=== PATIENT | male | born 1980 | race Caucasian/White ===

== ENCOUNTER 2016-12-16 22:58 | Emergency (ER) | payer MEDICARE, MEDICAID ==
[~2016-12-16] VITALS: Ht 162.6 cm; Wt 131.3 kg
[~2016-12-16 22:58] MED LIST: ALPR0.257 PO; ALPR0.5T72 PO; CETI-176 PO; CETI-208 PO; CLON0.5T3 PO; LORA10TA2; LORA10TA7 PO; LURA40TA PO; MNTL10T; MNTL10T PO; MONT10TA21 PO; NAPR-243 PO; OLAN10TA19 PO; OMEP-10; OMEP-10 PO; OMEP20CA12 PO; PARO20TA57; PARO30TA2 PO; PROBIOTIC1 EACH PO; PROP20TA5 PO; SCR1T1 PO; SERT100T8 PO; SINGULAIR; TOPI50TA2 PO; TPR25T; [UNRECOGNIZED DRUG - OTHER]; [UNRECOGNIZED DRUG - OTHER]
[2016-12-16] MEDS ORDERED: BUPR150T7 (23:19)
[2016-12-16] MEDS ORDERED: PRD20T (23:19)
[2016-12-16] MEDS ORDERED: CITA40TA11 (23:19)
[2016-12-16 23:46] LABS: BASOPHILS # (AUTO) 0.1 10^3/uL (0.0-0.1); BASOPHILS % (AUTO) 1 % (0-10); EOSINOPHILS # (AUTO) 0.6 10^3/uL (0.0-0.3); EOSINOPHILS % (AUTO) 5 % (0-10); LYMPHOCYTES % (AUTO) 28 % (12-44); MEAN CORPUSCULAR HEMOGLOBIN 29 PG (25-34); MEAN CORPUSCULAR HGB CONC 34 G/DL (32-36); MEAN CORPUSCULAR VOLUME 86 FL (80-99); MEAN PLATELET VOLUME 9.6 FL (7.4-10.4); MONOCYTES # (AUTO) 1.1 X 10^3 (0.0-1.0); MONOCYTES % (AUTO) 10 % (0-12); NEUTROPHILS # (AUTO) 5.8 X 10^3 (1.8-7.8); NEUTROPHILS % (AUTO) 55 % (42-75); PLATELET COUNT 414 10^3/uL (130-400); RED BLOOD COUNT 5.32 10^6/uL (4.35-5.85); RED CELL DISTRIBUTION WIDTH 12.6 % (10.0-14.5); WHITE BLOOD COUNT 10.6 10^3/uL (4.3-11.0)
[2016-12-16 23:52] LABS: PROTHROMBIN TIME PATIENT 12.5 SEC (12.2-14.7)
[2016-12-17 00:05] LABS: ALANINE AMINOTRANSFERASE 62 U/L (0-55); ALBUMIN 4.3 G/DL (3.2-4.5); AMYLASE 79 U/L (25-125); ANION GAP 13 MMOL/L (5-14); ASPARTATE AMINO TRANSFERASE 31 U/L (5-34); BILIRUBIN,TOTAL 0.5 MG/DL (0.1-1.0); BLOOD UREA NITROGEN 9 MG/DL (7-18); BUN/CREATININE RATIO 8; CALCIUM 9.7 MG/DL (8.5-10.1); CARBON DIOXIDE 29 MMOL/L (21-32); CHLORIDE 100 MMOL/L (98-107); CREATININE SERUM 1.14 MG/DL (0.60-1.30); GFR ESTIMATED > 60; GLUCOSE 120 MG/DL (70-105); LIPASE 11 U/L (8-78); POTASSIUM 3.9 MMOL/L (3.6-5.0); SODIUM 142 MMOL/L (135-145); TOTAL PROTEIN 7.7 G/DL (6.4-8.2)
[2016-12-17 00:11] LABS: TROPONIN I < 0.30 NG/ML (<0.30)
[2016-12-17] MEDS ORDERED: NS 100 ML (IVPB) BAG IV ONE (00:15)
[2016-12-17] MEDS ORDERED: IOHEXOL 350 MG/ML 100 ML (OMNIPAQUE 350) VIAL IV ONE (00:15)
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
[2016-12-17 01:40] VITALS: BP 149/98
[2016-12-17 01:57] LABS: BILIRUBIN,URINE NEGATIVE (NEGATIVE); KETONES,URINE NEGATIVE (NEGATIVE); LEUKOCYTE ESTERASE ,URINE NEGATIVE (NEGATIVE); NITRITE,URINE NEGATIVE (NEGATIVE); PH,URINE 8 (5-9); PROTEIN,URINE NEGATIVE (NEGATIVE); UROBILINOGEN,URINE NORMAL (NORMAL)
[2016-12-17 02:06] LABS: SQUAMOUS EPITHELIAL CELL,UR 0-2 /HPF
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
== END 2016-12-17 01:40 | disposition home or self-care (01) ==
LOC: EDUNIT# 22:58 → ER 23:00
DX: S20.211A Contusion of right front wall of thorax, initial encounter (principal); S30.1XXA Contusion of abdominal wall, initial encounter; F79 Unspecified intellectual disabilities; K76.0 Fatty (change of) liver, not elsewhere classified; E27.9 Disorder of adrenal gland, unspecified; Z79.899 Other long term (current) drug therapy; V43.62XA Car passenger injured in collision with other type car in traffic accident, initial encounter; Y92.410 Unspecified street and highway as the place of occurrence of the external cause; Y99.8 Other external cause status
CPT/HCPCS: 36415; 71020; 71260; 72125; 72128; 72131; 74177; 80053; 81000; 82150; 83690; 84484; 85025; 85610; 85730; 93005

== ENCOUNTER 2017-08-26 17:39 | Emergency (ER) | payer MEDICARE, MEDICAID ==
[~2017-08-26] VITALS: Ht 162.6 cm; Wt 131.3 kg
[~2017-08-26 17:39] MED LIST changes: +BUPR150T7; +CITA40TA11; +PRD20T
[2017-08-26] MEDS ORDERED: ASPIRIN 81 MG CHEW (CHILDREN'S ASA) PO ONE (18:00)
[2017-08-26] MEDS ORDERED: NITROGLYCERIN 0.4 MG SL TABS BTL 25'S SL PRN (18:00)
--- NOTE | 2017-08-26 18:01 | ED Chest Pain ---
General Stated Complaint: CP Source: patient, family Exam Limitations: physical impairment (MR) (SHANIQUE LARKIN) History of Present Illness Date Seen by Provider: Aug 26, 2017 Time Seen by Provider: 17:33 Initial Comments Patient resists ER by private conveyance with his father and caregiver with a chief complaint that he is having chest pain that started within the last hour or so. He has a history of heart problems and is known to Dr. Khanna but the father is not sure what they are and does not think his ever had a heart attack for atrial fibrillation. Patient is not on blood thinners. He does not know if he has a history of blood pressure problems but he is not diabetic. Nursing reports a blood sugar is 113 and the patient is diaphoretic and describes his pain as substernal midline and reproducible when I push on him. He does not smoke drink or use recreational drugs. He is on no if he has cholesterol problems. No known familial history of heart disease before the age of 50. No nausea or radiation of pain to the arms jaw or neck. Previously in the ER he was seen by Dr. Nieves and was worked up sounds like with a stress test outpatient by Dr. Khanna. Patient does have a history of asthma although the father notes that he only uses the inhalers as needed and has not been using them for the past several weeks because he has not needed them. (SHANIQUE LARKIN) Allergies and Home Medications Allergies Coded Allergies: NKANo Known Allergies (Unverified Allergy, Mild, 09/22/09) Home Medications Bupropion HCl 150 Mg Tab.er.24h, #30 (Reported) Citalopram Hydrobromide 40 Mg Tablet, #30 (Reported) Clonazepam 0.5 Mg Tablet, 1 EACH PO BID PRN, (Reported) Lactobacillus Rhamnosus Gg 1 Each Capsule, 1 EACH PO DAILY, (Reported) Loratadine 10 Mg Tablet, 10 MG PO DAILY, (Reported) Lurasidone Hcl 40 Mg Tablet, 40 MG PO DAILY, (Reported) Montelukast Sodium 10 Mg Tablet, 10 MG PO DAILY, (Reported) Olanzapine 10 Mg Tablet, 10 MG PO HS, (Reported) Omeprazole 20 Mg Capsule.dr, 20 MG PO DAILY, (Reported) Prednisone 20 Mg Tab, #20 (Reported) Propranolol Hcl 20 Mg Tablet, 20 MG PO TID, (Reported) Sertraline Hcl 100 Mg Tablet, 100 MG PO DAILY, (Reported) Sucralfate 1 Gm Tab, 1 GM PO ACHS for 30 Days, Ref 0 Prescribed by: SARAH ABDI on 07/17/12 1607 Topiramate 50 Mg Tablet, 50 MG PO BID, (Reported) Review of Systems Constitutional: chills, diaphoresis, No fever, malaise EENTM: No Ear Pain, No Mouth Pain Respiratory: Denies Cough, Denies Shortness of Air, Denies Wheezing Cardiovascular: Denies Chest Pain, Denies Edema Gastrointestinal: Denies Abdomen Distended, Abdominal Pain (left lower quadrant ), Constipated, Diarrhea, Denies Nausea Genitourinary: Denies Burning Musculoskeletal: No back pain, No joint pain Skin: No pruritus, No rash Psychiatric/Neurological: Denies Headache, Denies Numbness (SHANIQUE LARKIN) Past Xomjcag-Vogvfs-Usqmqo Hx Patient Social History Alcohol Use: Denies Use Recreational Drug Use: No Smoking Status: Never a Smoker Recent Foreign Travel: No Contact w/Someone Who Travel: No Recent Hopitalizations: No (SHANIQUE LARKIN) Immunizations Up To Date Tetanus Booster (TDap): Unknown Date of Influenza Vaccine: Jun 02, 2012 (SHANIQUE LARKIN) Seasonal Allergies Seasonal Allergies: Yes (Allergic rhinitis) (SHANIQUE LARKIN) Surgeries History of Surgeries: Yes Surgeries: Gallbladder (SHANIQUE LARKIN) Respiratory History of Respiratory Disorde: Yes (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) Respiratory Disorders: Asthma (SHANIQUE LARKIN) Cardiovascular History of Cardiac Disorders: Yes (History of pericarditis) (SHANIQUE LARKIN) Neurological History of Neurological Disord: Yes (MR, essential tremors) Neurological Disorders: Developmental Disorder (SHANIQUE LARKIN) Genitourinary History of Genitourinary Disor: No (SHANIQUE LARKIN) Gastrointestinal History of Gastrointestinal Di: Yes Gastrointestinal Disorders: Gastroesophageal Reflux (SHANIQUE LARKIN) Musculoskeletal History of Musculoskeletal Dis: No (SHANIQUE LARKIN) Endocrine History of Endocrine Disorders: No (SHANIQUE LARKIN) HEENT History of HEENT Disorders: No (SHANIQUE LARKIN) Cancer History of Cancer: No (SHANIQUE LARKIN) Psychosocial History of Psychiatric Problem: Yes (mentally challenged, mood disorder) (SHANIQUE LARKIN) Integumentary History of Skin or Integumenta: Yes (See trauma flow sheet picture: extensive bruising) (SHANIQUE LARKIN) Blood Transfusions History of Blood Disorders: No (SHANIQUE LARKIN) Family Medical History Significant Family History: Heart Disease (SHANIQUE LARKIN) Physical Exam Vital Signs Vital Signs - First Documented 08/26/17 08/26/17 17:44 17:45 Temp 98.7 Pulse 110 Resp 18 B/P (MAP) 160/97 (118) Pulse Ox 98 O2 Delivery Room Air O2 Flow Rate 0 (WARREN AVITIA MD) Vital Signs Capillary Refill : (SHANIQUE LARKIN) General Appearance: Anxious, Mild Distress, Obese HEENT: PERRL/EOMI, TMs Normal, Normal ENT Inspection, Pharynx Normal Neck: Full Range of Motion, Non Tender, Supple Respiratory: Normal Breath Sounds, Accessory Muscle Use (mild), Decreased Breath Sounds, Respiratory Distress (mild), Other (midsternum is tender to palpation similar to the pain he is describing) Cardiovascular: Regular Rate, Rhythm, No Edema, No Murmur, Tachycardia Gastrointestinal: Normal Bowel Sounds, Soft, Tenderness (left lower quadrant mild tenderness. No mesenteric signs.) Extremity: Normal Capillary Refill, No Pedal Edema Neurologic/Psychiatric: Alert, Oriented x3 (SHANIQUE LARKIN) Progress/Results/Core Measures Results/Orders Lab Results Laboratory Tests Test 08/26/17 17:52 08/26/17 17:57 08/26/17 20:00 08/26/17 20:05 Range/Units White Blood Count 11.3 H 4.3-11.0 10^3/uL Red Blood Count 5.64 4.35-5.85 10^6/uL Hemoglobin 16.2 13.3-17.7 G/DL Hematocrit 48 40-54 % Mean Corpuscular Volume 86 80-99 FL Mean Corpuscular Hemoglobin 29 25-34 PG Mean Corpuscular Hemoglobin Concent 34 32-36 G/DL Red Cell Distribution Width 12.8 10.0-14.5 % Platelet Count 364 130-400 10^3/uL Mean Platelet Volume 9.7 7.4-10.4 FL Neutrophils (%) (Auto) 65 42-75 % Lymphocytes (%) (Auto) 19 12-44 % Monocytes (%) (Auto) 12 0-12 % Eosinophils (%) (Auto) 4 0-10 % Basophils (%) (Auto) 1 0-10 % Neutrophils # (Auto) 7.3 1.8-7.8 X 10^3 Lymphocytes # (Auto) 2.1 1.0-4.0 X 10^3 Monocytes # (Auto) 1.4 H 0.0-1.0 X 10^3 Eosinophils # (Auto) 0.4 H 0.0-0.3 10^3/uL Basophils # (Auto) 0.1 0.0-0.1 10^3/uL Prothrombin Time 13.2 12.2-14.7 SEC INR Comment 1.0 0.8-1.4 Activated Partial Thromboplast Time 26 24-35 SEC D-Dimer < 0.27 0.00-0.49 UG/ML Sodium Level 141 135-145 MMOL/L Potassium Level 4.2 3.6-5.0 MMOL/L Chloride Level 102 98-107 MMOL/L Carbon Dioxide Level 28 21-32 MMOL/L Anion Gap 11 5-14 MMOL/L Blood Urea Nitrogen 12 7-18 MG/DL Creatinine 1.00 0.60-1.30 MG/DL Estimat Glomerular Filtration Rate > 60 BUN/Creatinine Ratio 12 Glucose Level 117 H 70-105 MG/DL Calcium Level 10.2 H 8.5-10.1 MG/DL Magnesium Level 2.3 1.8-2.4 MG/DL Total Bilirubin 0.4 0.1-1.0 MG/DL Aspartate Amino Transf (AST/SGOT) 31 5-34 U/L Alanine Aminotransferase (ALT/SGPT) 56 H 0-55 U/L Alkaline Phosphatase 64 40-136 U/L Myoglobin 18.3 10.0-92.0 NG/ML Troponin I < 0.30 < 0.30 <0.30 NG/ML B-Type Natriuretic Peptide < 10.0 <100.0 PG/ML Total Protein 8.4 H 6.4-8.2 GM/DL Albumin 4.6 H 3.2-4.5 GM/DL Lipase 12 8-78 U/L Glucometer 118 H 70-110 MG/DL Urine Color YELLOW Urine Clarity CLEAR Urine pH 5 5-9 Urine Specific [place] 1.015 L 1.016-1.022 Urine Protein NEGATIVE NEGATIVE Urine Glucose (UA) NEGATIVE NEGATIVE Urine Ketones NEGATIVE NEGATIVE Urine Nitrite NEGATIVE NEGATIVE Urine Bilirubin NEGATIVE NEGATIVE Urine Urobilinogen NORMAL NORMAL MG/DL Urine Leukocyte Esterase 1+ H NEGATIVE Urine RBC (Auto) NEGATIVE NEGATIVE Urine RBC NONE /HPF Urine WBC 0-2 /HPF Urine Crystals NONE /LPF Urine Bacteria NONE /HPF Urine Casts NONE /LPF Urine Mucus NEGATIVE /LPF Urine Culture Indicated NO (WARREN AVITIA MD) My Orders Orders - WARREN AVITIA MD Ondansetron Injection (Zofran Injectio (08/26/17 18:30) Lidocaine 2% Viscous 15 Ml (Xylocaine Vi (08/26/17 18:30) Antacid Suspension (Mylanta Suspension (08/26/17 18:30) Famotidine Injection (Pepcid Injection) (08/26/17 18:24) Ns Iv 1000 Ml (Sodium Chloride 0.9%) (08/26/17 18:24) Albuterol/Ipra Inhalation Soln (Duoneb I (08/26/17 18:30) Svn Sm Volume Nebulizer Rt-Rfs (08/26/17 18:24) Ua Culture If Indicated (08/26/17 19:06) Ct Abdomen/Pelvis W (08/26/17 19:09) Iohexol Injection (Omnipaque 350 Mg/Ml 1 (08/26/17 19:30) Ns (Ivpb) (Sodium Chloride 0.9% Ivpb Bag (08/26/17 19:30) Troponin I (08/26/17 19:53) Iv Push Master Automotive Technician Ed (08/26/17 ) (WARREN AVITIA MD) Medications Given in ED (WARREN AVITIA MD) Vital Signs/I&O Vital Sign - Last 12Hours 08/26/17 08/26/17 08/26/17 08/26/17 17:44 17:45 17:45 18:40 Temp 98.7 Pulse 110 Resp 18 B/P (MAP) 160/97 (118) Pulse Ox 98 97 95 O2 Delivery Room Air Room Air Room Air O2 Flow Rate 0 08/26/17 21:04 Temp 98.7 Pulse 116 Resp 18 Pulse Ox 95 O2 Delivery Room Air O2 Flow Rate 0 (WARREN AVITIA MD) Progress Note : Time: 18:00 Progress Note Coronary is possible however we'll think about other things with his reproducible chest pain such as pleuritic pain however his diaphoresis and afebrile presentation is concerning. Fluids, lipase. Could also be an asthma exacerbation as the patient is using some mild sensory muscles and he may respond to a breathing treatment. Her going to discuss the case with Dr. Nieves and allow him to take over and make further suggestions and workup. (SHANIQUE LARKIN) Progress Note #1: Time: 18:29 Progress Note I have assumed care of this patient from Dr. Larkin. Patient was reexamined and found to have tenderness across his upper abdomen and across the chest. He denies tenderness in the lower abdomen. I reviewed the chart from his prior visit with me in 2014. At that time he had a similar presentation. Chest tightness and pain resolved with DuoNeb treatment and abdominal pain had resolved with GI cocktail. We will try the same treatments today. I will also give a liter of IV fluids. Since patient cannot reliably give a history, we will err on the side of a more thorough workup and caution. Progress Note #2: Time: 19:13 Progress Note It is very difficult to get a clear answer from the patient whether he has improvement in his pain after GI cocktail. Patient's father seems to think he is somewhat better. Workup has been relatively unremarkable to this point. I discussed potential for further workup which would include CT of the abdomen and pelvis. Patient's father is agreeable to this as we yet have no explanation for his pain. CT has been ordered. Patient does not seem is tender on exam when evaluated again. Progress Note #3: Progress Note CT scan was negative for acute pathology. Patient appears significantly improved after DuoNeb treatment and GI cocktail. Patient was dismissed home to outpatient follow-up. (WARREN AVITIA MD) ECG Initial ECG Impression Date: Aug 26, 2017 Initial ECG Impression Time: 17:48 Initial ECG Rate: 110 Initial ECG Rhythm: S.Tach Initial ECG Intervals: Normal Initial ECG Impression: Normal Initial ECG Comparisson: No Previous ECG Available Comment Lots of breathing artifact however there is no evidence of T-wave elevation or depression. EKG : EKG Time: 17:51 Rate: 110 Rhythm: Normal Sinus Intervals: Normal ECG Comparisson: Unchanged ECG Impression: Normal, Nonspecific Changes Comment Same breathing artifact and no T-wave elevation or depression noted. (SHANIQUE LARKIN) Diagnostic Imaging Diagonstic Imaging: Xray Plain Films/CT/US/NM/MRI: chest Reviewed: Reviewed by Me (SHANIQUE LARKIN) Comments Chest x-ray viewed by me and report reviewed. See report below: NAME: [facility] REC#: [id number] PT STATUS: REG ER : 1980 PHYSICIAN: SHANIQUE LARKIN MD ADMIT DATE: 08/26/17/ER Draft Date of Exam:08/26/17 CHEST 1 VIEW, AP/PA ONLY INDICATION: Chest pain. EXAMINATION: Portable chest at 6:06 p.m. FINDINGS: Heart size and pulmonary vascularity are normal. Lungs are clear. There are no effusions or pneumothoraces. IMPRESSION: Negative chest. Dictated on workstation # [id number] Dict: 08/26/17 1826 Trans: 08/26/17 1829 [facility] [id number] Interpreted by: SARAH PRIETO MD Diagonstic Imaging: CT Plain Films/CT/US/NM/MRI: abdomen, pelvis Comments CT abdomen and pelvis viewed by me and report reviewed. See report below: NAME: [facility] REC#: [id number] PT STATUS: DEP ER : 1980 PHYSICIAN: WARREN AVITIA MD ADMIT DATE: 08/26/17/ER Signed Date of Exam: 08/26/17 CT ABDOMEN/PELVIS W PROCEDURE: CT abdomen and pelvis with contrast. TECHNIQUE: Multiple contiguous axial images were obtained through the abdomen and pelvis after administration of intravenous contrast. INDICATION: Chest and abdominal pain. COMPARISON: Study of 12/17/2016. FINDINGS: There is low-density throughout the liver without evidence of focal hepatic or splenic lesion. There is also fatty change within the head and neck of the pancreas. Otherwise, there is no evidence of pancreatic or left adrenal gland lesion. There is a persistent 1.6 cm nodule in the right adrenal gland. Kidneys are stable in appearance without evidence of hydronephrosis or localized inflammation. Appendix has a normal appearance. Partially opacified urinary bladder is unremarkable. Is no free fluid or evidence of pathologic adenopathy. 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 There has been no significant change in right adrenal gland nodule. Otherwise, no acute abnormality or adverse change is identified. Dictated by: Dictated on workstation # [id number] Dict: 08/26/171933 Trans: 08/26/172136 Interpreted by: MAXIMO ESTRELLA MD Electronically signed by: MAXIMO ESTRELLA MD 08/26/172136 (WARREN AVITIA MD) Departure Impression Impression: Primary Impression: Atypical chest pain Additional Impressions: Asthma exacerbation Qualified Codes: J45.901 - Unspecified asthma with (acute) exacerbation Upper abdominal pain Disposition: HOME, SELF-CARE Condition: Improved Departure-Patient Inst. Decision time for Depature: 20:53 (WARREN AVITIA MD) [place] [facility] [place] Primary Care Physician Patient Instructions: Acute Abdomen (Belly Pain), Chest Pain (DC) Add. Discharge Instructions: Your workup in the emergency room was relatively unremarkable. For shortness of breath or chest tightness, you may use nebulizer treatments up to every 4 hours as needed. For per abdominal discomfort, please increase your omeprazole to 20 mg twice daily instead of once daily. Return to the emergency room if symptoms worsen. Follow-up with your primary care provider as soon as possible. Please call morning to make an appointment. Copy Copies To 1: MARNIE PORTER TITUS J Aug 26, 2017 18:01 WARREN AVITIA MD Aug 26, 2017 18:30
[2017-08-26 18:02] LABS: BASOPHILS # (AUTO) 0.1 10^3/uL (0.0-0.1); BASOPHILS % (AUTO) 1 % (0-10); EOSINOPHILS # (AUTO) 0.4 10^3/uL (0.0-0.3); EOSINOPHILS % (AUTO) 4 % (0-10); HEMATOCRIT 48 % (40-54); HEMOGLOBIN 16.2 G/DL (13.3-17.7); LYMPHOCYTES # (AUTO) 2.1 X 10^3 (1.0-4.0); LYMPHOCYTES % (AUTO) 19 % (12-44); MEAN CORPUSCULAR HEMOGLOBIN 29 PG (25-34); MEAN CORPUSCULAR HGB CONC 34 G/DL (32-36); MEAN CORPUSCULAR VOLUME 86 FL (80-99); MEAN PLATELET VOLUME 9.7 FL (7.4-10.4); MONOCYTES # (AUTO) 1.4 X 10^3 (0.0-1.0); MONOCYTES % (AUTO) 12 % (0-12); NEUTROPHILS # (AUTO) 7.3 X 10^3 (1.8-7.8); NEUTROPHILS % (AUTO) 65 % (42-75); PLATELET COUNT 364 10^3/uL (130-400); RED BLOOD COUNT 5.64 10^6/uL (4.35-5.85); RED CELL DISTRIBUTION WIDTH 12.8 % (10.0-14.5); WHITE BLOOD COUNT 11.3 10^3/uL (4.3-11.0)
[2017-08-26 18:11] LABS: PROTHROMBIN TIME PATIENT 13.2 SEC (12.2-14.7)
[2017-08-26 18:21] LABS: ALANINE AMINOTRANSFERASE 56 U/L (0-55); ALBUMIN 4.6 GM/DL (3.2-4.5); ALKALINE PHOSPHATASE 64 U/L (40-136); BILIRUBIN,TOTAL 0.4 MG/DL (0.1-1.0); BUN/CREATININE RATIO 12; CALCIUM 10.2 MG/DL (8.5-10.1); CARBON DIOXIDE 28 MMOL/L (21-32); CHLORIDE 102 MMOL/L (98-107); GFR ESTIMATED > 60; GLUCOSE 117 MG/DL (70-105); LIPASE 12 U/L (8-78); MAGNESIUM 2.3 MG/DL (1.8-2.4); POTASSIUM 4.2 MMOL/L (3.6-5.0); SODIUM 141 MMOL/L (135-145); TOTAL PROTEIN 8.4 GM/DL (6.4-8.2)
[2017-08-26] MEDS ORDERED: NS IV 1000 ML 1,000 ML IV ONE (18:24)
[2017-08-26] MEDS ORDERED: FAMOTIDINE 20MG/2ML IV (PEPCID) IV STA (18:24)
[2017-08-26 18:27] LABS: MYOGLOBIN SERUM 18.3 NG/ML (10.0-92.0)
[2017-08-26] MEDS ORDERED: ANTACID SUSP 30 ML UDC (MYLANTA) PO ONE (18:30)
[2017-08-26] MEDS ORDERED: ONDANSETRON 4 MG/2 ML (SDV) Z0FRAN IVP ONE (18:30)
[2017-08-26] MEDS ORDERED: LIDOCAINE 2% VISCOUS 15 ML UDC PO ONE (18:30)
[2017-08-26] MEDS ORDERED: RT-ALBUTEROL/IPRATROPIUM 3 ML (DUONEB) VIAL INH ONE (18:30)
--- NOTE | 2017-08-26 18:30 | Diagnostic Imaging Report ---
INDICATION: Chest pain. EXAMINATION: Portable chest at 6:06 p.m. FINDINGS: Heart size and pulmonary vascularity are normal. Lungs are clear. There are no effusions or pneumothoraces. IMPRESSION: Negative chest. Dictated by: Dictated on workstation # [id number]
[2017-08-26] MEDS ORDERED: IOHEXOL 350 MG/ML 100 ML (OMNIPAQUE 350) VIAL IV ONE (19:30)
[2017-08-26] MEDS ORDERED: NS 100 ML (IVPB) BAG IV ONE (19:30)
--- NOTE | 2017-08-26 19:39 | Diagnostic Imaging Report ---
PROCEDURE: CT abdomen and pelvis with contrast. TECHNIQUE: Multiple contiguous axial images were obtained through the abdomen and pelvis after administration of intravenous contrast. INDICATION: Chest and abdominal pain. COMPARISON: Study of 12/17/2016. FINDINGS: There is low-density throughout the liver without evidence of focal hepatic or splenic lesion. There is also fatty change within the head and neck of the pancreas. Otherwise, there is no evidence of pancreatic or left adrenal gland lesion. There is a persistent 1.6 cm nodule in the right adrenal gland. Kidneys are stable in appearance without evidence of hydronephrosis or localized inflammation. Appendix has a normal appearance. Partially opacified urinary bladder is unremarkable. Is no free fluid or evidence of pathologic adenopathy. 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 There has been no significant change in right adrenal gland nodule. Otherwise, no acute abnormality or adverse change is identified. Dictated by: Dictated on workstation # [id number]
[2017-08-26 20:19] LABS: BILIRUBIN,URINE NEGATIVE (NEGATIVE); CLARITY,URINE CLEAR; COLOR,URINE YELLOW; GLUCOSE, URINE (UA) NEGATIVE (NEGATIVE); KETONES,URINE NEGATIVE (NEGATIVE); LEUKOCYTE ESTERASE ,URINE 1+ (NEGATIVE); NITRITE,URINE NEGATIVE (NEGATIVE); PH,URINE 5 (5-9); PROTEIN,URINE NEGATIVE (NEGATIVE); UROBILINOGEN,URINE NORMAL (NORMAL)
[2017-08-26 20:33] LABS: WBC,URINE 0-2 /HPF
[2017-08-26 21:04] VITALS: BP 180/94
--- OUTSIDE RECORDS SUMMARY | 2017-08-29 07:05 | XMS REPORT ---
Author Author IRENE Madrigal [facility] [address] Address Unknown Care Team Providers Care Crosstie Inspector Name Role Phone IRENE Madrigal Unavailable PROBLEMS Type Condition ICD9-CM Code [id number] Code Onset Dates Condition Status SNOMED Code Problem Anxiety state, unspecified 300.00 Active 550640286 Problem Unspecified episodic mood disorder 296.90 Active 954591724 Problem Unspecified psychosis 298.9 Active 49723532 Problem Major depressive disorder, recurrent episode, in partial remission F33.41 Active 26758650 Problem Major depression, recurrent F33.9 Active 42988277 Problem Major depressive disorder, recurrent episode, mild 296.31 Active 10816667 Problem Major depressive disorder, recurrent episode, moderate 296.32 Active 56787788 Problem Obsessive compulsive disorder F42 Active 624717629 Problem Mental retardation F79 Active 18073503 Problem Unspecified otalgia 388.70 Active 21345460 Problem Acute suppurative otitis media without spontaneous rupture of eardrum 382.00 Active 80615615 Problem Encounter for long-term (current) use of other medications V58.69 Active 281910157 Problem Wheezing 786.07 Active 25457234 Problem Mild mental retardation 317 Active 60065283 Problem Depressive disorder, not elsewhere classified 311 Active 91019783 Problem Dysfunction of Eustachian tube 381.81 Active 13440072 Problem Obsessive-compulsive disorders 300.3 Active 059600283 Problem Moderate mental retardation 318.0 Active 64820035 Problem Generalized anxiety disorder 300.02 Active 35594310 ALLERGIES No Known Allergies SOCIAL HISTORY Never Assessed PLAN OF CARE Activity Details Follow Up 2 Months Reason: VITAL SIGNS MEDICATIONS Medication Instructions Dosage Frequency Start Date End Date Duration Status Clonazepam 0.5 MG Orally as needed Twice a day 1 tablet 12h Sep, 30 days Active Latuda 60 MG Orally Once a day 1 tablet with food 24h Oct, 30 days Active Wellbutrin XL 150 MG Orally Once a day 1 tablet in the morning 24h November, 30 day(s) Active Latuda 60MG TAKE ONE TABLET BY MOUTH ONCE DAILY WITH FOOD 30 Active propranolol 20 mg 1 Tablet by Oral route 2 times per day Dec, Active Mucinex 600 MG Orally every 12 hrs 1 tablet as needed 12h Active RESULTS No Results PROCEDURES Procedure Date Ordered Result Body Site [facility] VISIT ESTABLISHED PATIENT November 18, 2016 IMMUNIZATIONS No Known Immunizations
--- OUTSIDE RECORDS SUMMARY | 2017-08-29 07:05 | XMS REPORT ---
Author Author IRENE Madrigal [facility] Address Unknown Care Team Providers Care Crate Liner Name Role Phone IRENE Madrigal Unavailable PROBLEMS Type Condition ICD9-CM Code [id number] Code Onset Dates Condition Status SNOMED Code Problem Anxiety state, unspecified 300.00 Active 225628395 Problem Unspecified episodic mood disorder 296.90 Active 845880610 Problem Unspecified psychosis 298.9 Active 35102435 Problem Major depressive disorder, recurrent episode, in partial remission F33.41 Active 45872077 Problem Major depression, recurrent F33.9 Active 97693832 Problem Major depressive disorder, recurrent episode, mild 296.31 Active 76671822 Problem Major depressive disorder, recurrent episode, moderate 296.32 Active 75108177 Problem Obsessive compulsive disorder F42 Active 942399798 Problem Mental retardation F79 Active 35095509 Problem Unspecified otalgia 388.70 Active 48177883 Problem Acute suppurative otitis media without spontaneous rupture of eardrum 382.00 Active 66887774 Problem Encounter for long-term (current) use of other medications V58.69 Active 829053610 Problem Wheezing 786.07 Active 34933479 Problem Mild mental retardation 317 Active 68400047 Problem Depressive disorder, not elsewhere classified 311 Active 61637167 Problem Dysfunction of Eustachian tube 381.81 Active 56147750 Problem Obsessive-compulsive disorders 300.3 Active 807764302 Problem Moderate mental retardation 318.0 Active 58464473 Problem Generalized anxiety disorder 300.02 Active 25745503 ALLERGIES No Information SOCIAL HISTORY Never Assessed PLAN OF CARE VITAL SIGNS MEDICATIONS Unknown Medications RESULTS No Results PROCEDURES No Known procedures IMMUNIZATIONS No Known Immunizations
--- OUTSIDE RECORDS SUMMARY | 2017-08-29 07:06 | XMS REPORT ---
Author Author IRENE AL [facility] Address Unknown Care Team Providers Care Dragline Engineer Name Role Phone IRENE AL Unavailable PROBLEMS Type Condition ICD9-CM Code XBS40-AY Code Onset Dates Condition Status SNOMED Code Problem Generalized anxiety disorder 300.02 Active 51282476 Problem Unspecified psychosis 298.9 Active 07685967 Problem Acute suppurative otitis media without spontaneous rupture of eardrum 382.00 Active 80873290 Problem Major depressive disorder, recurrent episode, in partial remission F33.41 Active 93010894 Problem Major depression, recurrent F33.9 Active 91329621 Problem Anxiety state, unspecified 300.00 Active 267893904 Problem Unspecified episodic mood disorder 296.90 Active 974705657 Problem Obsessive compulsive disorder F42 Active 457148097 Problem Mental retardation F79 Active 62173430 Problem Mild mental retardation 317 Active 38468829 Problem Unspecified otalgia 388.70 Active 68741600 Problem Major depressive disorder, recurrent episode, moderate 296.32 Active 26005504 Problem Obsessive-compulsive disorders 300.3 Active 717992115 Problem Encounter for long-term (current) use of other medications V58.69 Active 275378249 Problem Major depressive disorder, recurrent episode, mild 296.31 Active 01872875 Problem Dysfunction of Eustachian tube 381.81 Active 59463362 Problem Moderate mental retardation 318.0 Active 87415676 Problem Wheezing 786.07 Active 73399533 Problem Depressive disorder, not elsewhere classified 311 Active 04339465 ALLERGIES Substance Reaction Event Type Date Status N.K.D.A. Unknown Non Drug Allergy Jun, Unknown SOCIAL HISTORY No smoking Hx information available PLAN OF CARE Activity Details Follow Up 3 Months Reason: VITAL SIGNS Height 65 in 2016-07-01 Weight 294.0 lbs 2016-07-01 Heart Rate 100 bpm 2016-07-01 Respiratory Rate 20 2016-07-01 BMI 48.92 kg/m2 2016-07-01 Blood pressure systolic 108 mmHg 2016-07-01 Blood pressure diastolic 83 mmHg 2016-07-01 MEDICATIONS Medication Instructions Dosage Frequency Start Date End Date Duration Status propranolol 20 mg 1 Tablet by Oral route 2 times per day Dec, Active Latuda 60 MG Orally Once a day 1 tablet with food 24h Oct, 30 days Active Citalopram Hydrobromide 40 MG Orally Once a day 1 tablet 24h Apr, 30 days Active Clonazepam 0.5 MG Orally 2 times a day PRN anxiety take 1 tablet Sep, 30 days Active Mucinex 600 MG Orally every 12 hrs 1 tablet as needed 12h Active RESULTS No Results PROCEDURES Procedure Date Ordered Related Diagnosis Body Site [facility] PATIENT Jul 01, 2016 Office Visit, Est Pt., Level 3 Jul 01, 2016 IMMUNIZATIONS No Known Immunizations
--- OUTSIDE RECORDS SUMMARY | 2017-08-29 07:07 | XMS REPORT | Continuity of Care Document ---
Author Author [facility] Organization [facility] Address Unknown Phone Unavailable Allergies Active Description Code Type Severity Reaction Onset Reported/Identified Relationship to Patient Clinical Status Yes NKANo Known Allergies NKA Miscellaneous Allergy Mild N/A 09/22/2009 Yes iodine Drug Allergy N/A N/A 09/26/2014 Medications There is no data. Problems Date Dx Coded Attending Type Code Diagnosis Diagnosed By 11/29/2009 Ot 786.50 02/21/2010 Ot 786.09 02/21/2010 Ot 786.50 02/21/2010 Ot V58.69 04/08/2010 STEPHENIE OATES APRN 477.0 ALLERGIC RHINITIS - POLLEN 04/08/2010 STEPHENIE OATES APRN 536.8 DYSPEPSIA 04/08/2010 477.0 ALLERGIC RHINITIS - POLLEN 04/08/2010 536.8 DYSPEPSIA 04/08/2010 TASHI MORALES DDS 477.0 ALLERGIC RHINITIS - POLLEN 04/08/2010 TASHI MORALES DDS 536.8 DYSPEPSIA 04/08/2010 STEPHENIE OATES APRN 477.0 ALLERGIC RHINITIS - POLLEN 04/08/2010 STEPHENIE OATES APRN 536.8 DYSPEPSIA 04/08/2010 477.0 ALLERGIC RHINITIS - POLLEN 04/08/2010 536.8 DYSPEPSIA 04/08/2010 477.0 ALLERGIC RHINITIS - POLLEN 04/08/2010 536.8 DYSPEPSIA 04/08/2010 477.0 ALLERGIC RHINITIS - POLLEN 04/08/2010 536.8 DYSPEPSIA 04/08/2010 477.0 ALLERGIC RHINITIS - POLLEN 04/08/2010 536.8 DYSPEPSIA 04/08/2010 ROSALINDA SINGLETARY DO 477.0 ALLERGIC RHINITIS - POLLEN 04/08/2010 ROSALINDA SINGLETARY DO 536.8 DYSPEPSIA 04/08/2010 LUKASZ CHOE, JAY Champagne 477.0 ALLERGIC RHINITIS - POLLEN 04/08/2010 LUKASZ CHOE, JAY Champagne 536.8 DYSPEPSIA 04/08/2010 PORTER DO, MARNIE K 477.0 ALLERGIC RHINITIS - POLLEN 04/08/2010 PORTER DO, MARNIE K 536.8 DYSPEPSIA 04/08/2010 OATES REPORTS ANALYSIS MANAGER, STEPHENIE CARRILLO 477.0 ALLERGIC RHINITIS - POLLEN 04/08/2010 OATES REPORTS ANALYSIS MANAGER, STEPHENIE GERARDO 536.8 DYSPEPSIA 04/08/2010 OATES REPORTS ANALYSIS MANAGER, STEPHENIE GERARDO 477.0 ALLERGIC RHINITIS - POLLEN 04/08/2010 OATES REPORTS ANALYSIS MANAGER, STEPHENIE GERARDO 536.8 DYSPEPSIA 04/08/2010 OATES REPORTS ANALYSIS MANAGER, STEPHENIE GERARDO 477.0 ALLERGIC RHINITIS - POLLEN 04/08/2010 OATES REPORTS ANALYSIS MANAGER, STEPHENIE GERARDO 536.8 DYSPEPSIA 04/08/2010 MIKAELA COMMERCIAL TRUCK DRIVER, IRENE M 477.0 ALLERGIC RHINITIS - POLLEN 04/08/2010 MIKAELA COMMERCIAL TRUCK DRIVER, IRENE M 536.8 DYSPEPSIA 04/08/2010 MIKAELA COMMERCIAL TRUCK DRIVER, IRENE M 477.0 ALLERGIC RHINITIS - POLLEN 04/08/2010 MIKAELA COMMERCIAL TRUCK DRIVER, IRENE M 536.8 DYSPEPSIA 04/08/2010 MIKAELA COMMERCIAL TRUCK DRIVER, IRENE M 477.0 ALLERGIC RHINITIS - POLLEN 04/08/2010 MIKAELA COMMERCIAL TRUCK DRIVER, IRENE M 536.8 DYSPEPSIA 05/05/2010 OATESMIGEL SOTELO, STEPHENIE CARRILLO 465.9 UPPER RESPIRATORY INFECTION 05/05/2010 465.9 UPPER RESPIRATORY INFECTION 05/05/2010 ANDREW PATTERSON, TASHI M 465.9 UPPER RESPIRATORY INFECTION 05/05/2010 OATES REPORTS ANALYSIS MANAGER, STEPHENIE CARRILLO 465.9 UPPER RESPIRATORY INFECTION 05/05/2010 465.9 UPPER RESPIRATORY INFECTION 05/05/2010 465.9 UPPER RESPIRATORY INFECTION 05/05/2010 465.9 UPPER RESPIRATORY INFECTION 05/05/2010 465.9 UPPER RESPIRATORY INFECTION 05/05/2010 ROSALINDA SINGLETARY DO 465.9 UPPER RESPIRATORY INFECTION 05/05/2010 LUKASZ CHOE, JAY Champagne 465.9 UPPER RESPIRATORY INFECTION 05/05/2010 MARNIE PORTER DO 465.9 UPPER RESPIRATORY INFECTION 05/05/2010 OATES APRN, STEPHENIE CARRILLO 465.9 UPPER RESPIRATORY INFECTION 05/05/2010 STEPHENIE OATES APRN 465.9 UPPER RESPIRATORY INFECTION 05/05/2010 STEPHENIE OATES APRN 465.9 UPPER RESPIRATORY INFECTION 05/05/2010 MIKAELA COMMERCIAL TRUCK DRIVER, IRENE M 465.9 UPPER RESPIRATORY INFECTION 05/05/2010 MIKAELA COMMERCIAL TRUCK DRIVER, IRENE M 465.9 UPPER RESPIRATORY INFECTION 05/05/2010 MIKAELA COMMERCIAL TRUCK DRIVER, IRENE M 465.9 UPPER RESPIRATORY INFECTION 05/20/2010 STEPHENIE OATES APRN V70.0 ROUTINE GENERAL MEDICAL EXAMINATION AT A HEALTH CARE FACILITY 05/20/2010 V70.0 ROUTINE GENERAL MEDICAL EXAMINATION AT A HEALTH CARE FACILITY 05/20/2010 TASHI MORALES DDS V70.0 ROUTINE GENERAL MEDICAL EXAMINATION AT A HEALTH CARE FACILITY 05/20/2010 STEPHENIE OATES APRN V70.0 ROUTINE GENERAL MEDICAL EXAMINATION AT A HEALTH CARE FACILITY 05/20/2010 V70.0 ROUTINE GENERAL MEDICAL EXAMINATION AT A HEALTH CARE FACILITY 05/20/2010 V70.0 ROUTINE GENERAL MEDICAL EXAMINATION AT A HEALTH CARE FACILITY 05/20/2010 V70.0 ROUTINE GENERAL MEDICAL EXAMINATION AT A HEALTH CARE FACILITY 05/20/2010 V70.0 ROUTINE GENERAL MEDICAL EXAMINATION AT A HEALTH CARE FACILITY 05/20/2010 ROSALINDA SINGLETARY DO V70.0 ROUTINE GENERAL MEDICAL EXAMINATION AT A HEALTH CARE FACILITY 05/20/2010 LUKASZ CHOE, JAY Champagne V70.0 ROUTINE GENERAL MEDICAL EXAMINATION AT A HEALTH CARE FACILITY 05/20/2010 MARNIE PORTER DO V70.0 ROUTINE GENERAL MEDICAL EXAMINATION AT A HEALTH CARE FACILITY 05/20/2010 STEPHENIE OATES APRN V70.0 ROUTINE GENERAL MEDICAL EXAMINATION AT A HEALTH CARE FACILITY 05/20/2010 STEPHENIE OATES APRN V70.0 ROUTINE GENERAL MEDICAL EXAMINATION AT A HEALTH CARE FACILITY 05/20/2010 STEPHENIE OATES APRN V70.0 ROUTINE GENERAL MEDICAL EXAMINATION AT A HEALTH CARE FACILITY 05/20/2010 MIKAELA COMMERCIAL TRUCK DRIVER, IRENE M V70.0 ROUTINE GENERAL MEDICAL EXAMINATION AT A HEALTH CARE FACILITY 05/20/2010 MIKAELA COMMERCIAL TRUCK DRIVER, IRENE M V70.0 ROUTINE GENERAL MEDICAL EXAMINATION AT A HEALTH CARE FACILITY 05/20/2010 MIKAELA COMMERCIAL TRUCK DRIVER, IRENE M V70.0 ROUTINE GENERAL MEDICAL EXAMINATION AT A HEALTH CARE FACILITY 09/11/2010 ИВАН SOTELO STEPHENIE CARRILLO 466.0 ACUTE BRONCHITIS 09/11/2010 466.0 ACUTE BRONCHITIS 09/11/2010 EIGRAYS, TASHI Munguia 466.0 ACUTE BRONCHITIS 09/11/2010 ИВАН SOTELO STEPHENIE CARRILLO 466.0 ACUTE BRONCHITIS 09/11/2010 466.0 ACUTE BRONCHITIS 09/11/2010 466.0 ACUTE BRONCHITIS 09/11/2010 466.0 ACUTE BRONCHITIS 09/11/2010 466.0 ACUTE BRONCHITIS 09/11/2010 ROSALINDA SINGLETARY DO 466.0 ACUTE BRONCHITIS 09/11/2010 LUKASZ CHOE, JAY Champagne 466.0 ACUTE BRONCHITIS 09/11/2010 [place]TE DO MARNIE Colleen 466.0 ACUTE BRONCHITIS 09/11/2010 OATES REPORTS ANALYSIS MANAGER, STEPHENIE CARRILLO 466.0 ACUTE BRONCHITIS 09/11/2010 OATES REPORTS ANALYSIS MANAGER, STEPHENIE CARRILLO 466.0 ACUTE BRONCHITIS 09/11/2010 OATES REPORTS ANALYSIS MANAGER, STEPHENIE CARRILLO 466.0 ACUTE BRONCHITIS 09/11/2010 MIKAELA ALVAREZ, IRENE M 466.0 ACUTE BRONCHITIS 09/11/2010 MIKAELA ALVAREZ, IRENE M 466.0 ACUTE BRONCHITIS 09/11/2010 MIKAELA ALVAREZ, IRENE M 466.0 ACUTE BRONCHITIS 03/09/2011 OATESMIGEL ARNOLDImer STEPHENIE CARRILLO 110.1 DERMATOPHYTOSIS OF NAIL 03/09/2011 ИАВН SOTELO STEPHENIE CARRILLO 723.1 CERVICALGIA 03/09/2011 110.1 DERMATOPHYTOSIS OF NAIL 03/09/2011 723.1 CERVICALGIA 03/09/2011 EIGRAYS, TASHI Munguia 110.1 DERMATOPHYTOSIS OF NAIL 03/09/2011 EISANA DDS, TASHI Munguia 723.1 CERVICALGIA 03/09/2011 ИВАН SOTELO STEPHENIE CARRILLO 110.1 DERMATOPHYTOSIS OF NAIL 03/09/2011 OATES ASHLEIGH STEPHENIE CARRILLO 723.1 CERVICALGIA 03/09/2011 110.1 DERMATOPHYTOSIS OF NAIL 03/09/2011 723.1 CERVICALGIA 03/09/2011 110.1 DERMATOPHYTOSIS OF NAIL 03/09/2011 723.1 CERVICALGIA 03/09/2011 110.1 DERMATOPHYTOSIS OF NAIL 03/09/2011 723.1 CERVICALGIA 03/09/2011 110.1 DERMATOPHYTOSIS OF NAIL 03/09/2011 723.1 CERVICALGIA 03/09/2011 ROSALINDA SINGLETARY DO F 110.1 DERMATOPHYTOSIS OF NAIL 03/09/2011 ROSALINDA SINGLETARY DO 723.1 CERVICALGIA 03/09/2011 JAY LAL PHD 110.1 DERMATOPHYTOSIS OF NAIL 03/09/2011 LUKASZ CHOE, JAY Champagne 723.1 CERVICALGIA 03/09/2011 PORTER DOMARNIE K 110.1 DERMATOPHYTOSIS OF NAIL 03/09/2011 PORTER DORAMONA K 723.1 CERVICALGIA 03/09/2011 ИВАН SOTELO STEPHENIE GERARDO 110.1 DERMATOPHYTOSIS OF NAIL 03/09/2011 OATES ASHLEIGH STEPHENIE GERARDO 723.1 CERVICALGIA 03/09/2011 OATES ASHLEIGH STEPHENIE GERARDO 110.1 DERMATOPHYTOSIS OF NAIL 03/09/2011 ИВАН SOTELO STEPHENIE GERARDO 723.1 CERVICALGIA 03/09/2011 ИВАН SOTELO STEPHENIE GERARDO 110.1 DERMATOPHYTOSIS OF NAIL 03/09/2011 OATESMIGEL SOTELO STEPHENIE GERARDO 723.1 CERVICALGIA 03/09/2011 IRENE BRYAN M 110.1 DERMATOPHYTOSIS OF NAIL 03/09/2011 MIKAELA ALVAREZ, IRENE M 723.1 CERVICALGIA 03/09/2011 MIKAELA ALVAREZ, IRENE M 110.1 DERMATOPHYTOSIS OF NAIL 03/09/2011 MIKAELA ALVAREZ, IRENE M 723.1 CERVICALGIA 03/09/2011 MIKAELA ALVAREZ, IRENE M 110.1 DERMATOPHYTOSIS OF NAIL 03/09/2011 MIKAELA ALVAREZ, IRENE M 723.1 CERVICALGIA 03/19/2011 ИВАН SOTELO STEPHENIE GERARDO 703.0 INGROWING NAIL 03/19/2011 703.0 INGROWING NAIL 03/19/2011 TASHI MORALES DDS 703.0 INGROWING NAIL 03/19/2011 ИВАН SOTELO STEPHENIE GERARDO 703.0 INGROWING NAIL 03/19/2011 703.0 INGROWING NAIL 03/19/2011 703.0 INGROWING NAIL 03/19/2011 703.0 INGROWING NAIL 03/19/2011 703.0 INGROWING NAIL 03/19/2011 ROSALINDA SINGLETARY DO 703.0 INGROWING NAIL 03/19/2011 LUKASZ PHD, JAY Champagne 703.0 INGROWING NAIL 03/19/2011 MARNIE PORTER DO 703.0 INGROWING NAIL 03/19/2011 ИВАН ARNOLDN, STEPHENIE CARRILLO 703.0 INGROWING NAIL 03/19/2011 OATES REPORTS ANALYSIS MANAGER, STEPHENIE CARRILLO 703.0 INGROWING NAIL 03/19/2011 ИВАН ARNOLDN, STEPHENIE CARRILLO 703.0 INGROWING NAIL 03/19/2011 MIKAELA COMMERCIAL TRUCK DRIVER, IRENE M 703.0 INGROWING NAIL 03/19/2011 MIKAELA COMMERCIAL TRUCK DRIVER, IRENE M 703.0 INGROWING NAIL 03/19/2011 MIKAELA COMMERCIAL TRUCK DRIVER, IRENE M 703.0 INGROWING NAIL 06/18/2011 OATES ASHLEIGH STEPHENIE CARRILLO 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 06/18/2011 ИВАН ARNOLDImer STEPHENIE CARRILLO 521.00 UNSPECIFIED DENTAL CARIES 06/18/2011 ИВАН ARNOLDImer STEPHENIE CARRILLO V04.81 FLU DX (MEDICARE ONLY) 06/18/2011 ИВАН ARNOLDImer STEPHENIE CARRILLO V72.84 PRE-OPERATIVE EXAMINATION UNSPECIFIED 06/18/2011 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 06/18/2011 521.00 UNSPECIFIED DENTAL CARIES 06/18/2011 V04.81 FLU DX ( MEDICARE ONLY) 06/18/2011 V72.84 PRE- OPERATIVE EXAMINATION UNSPECIFIED 06/18/2011 GENSWEIDER DDS, TASHI M 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 06/18/2011 GENSWEIDER DDS, TASHI M 521.00 UNSPECIFIED DENTAL CARIES 06/18/2011 GENSWEIDER DDS, TASHI M V04.81 FLU DX (MEDICARE ONLY) 06/18/2011 GENSWEIDER DDS, TASHI M V72.84 PRE-OPERATIVE EXAMINATION UNSPECIFIED 06/18/2011 OTAESMIGEL ARNOLDImer STEPHENIE CARRILLO 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 06/18/2011 ИВАН ARNOLDImer STEPHENIE CARRILLO 521.00 UNSPECIFIED DENTAL CARIES 06/18/2011 ИВАН ARNOLDImer STEPHENIE CARRILLO V04.81 FLU DX (MEDICARE ONLY) 06/18/2011 OATESMIGEL ARNOLDImer STEPHENIE CARRILLO V72.84 PRE-OPERATIVE EXAMINATION UNSPECIFIED 06/18/2011 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 06/18/2011 521.00 UNSPECIFIED DENTAL CARIES 06/18/2011 V04.81 FLU DX ( MEDICARE ONLY) 06/18/2011 V72.84 PRE- OPERATIVE EXAMINATION UNSPECIFIED 06/18/2011 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 06/18/2011 521.00 UNSPECIFIED DENTAL CARIES 06/18/2011 V04.81 FLU DX ( MEDICARE ONLY) 06/18/2011 V72.84 PRE- OPERATIVE EXAMINATION UNSPECIFIED 06/18/2011 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 06/18/2011 521.00 UNSPECIFIED DENTAL CARIES 06/18/2011 V04.81 FLU DX ( MEDICARE ONLY) 06/18/2011 V72.84 PRE- OPERATIVE EXAMINATION UNSPECIFIED 06/18/2011 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 06/18/2011 521.00 UNSPECIFIED DENTAL CARIES 06/18/2011 V04.81 FLU DX ( MEDICARE ONLY) 06/18/2011 V72.84 PRE- OPERATIVE EXAMINATION UNSPECIFIED 06/18/2011 ROSALINDA SINGLETARY DO 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 06/18/2011 ROSALINDA SINGLETARY DO F 521.00 UNSPECIFIED DENTAL CARIES 06/18/2011 ROSALINDA SINGLETARY DO F V04.81 FLU DX (MEDICARE ONLY) 06/18/2011 ROSALINDA SINGLETARY DO V72.84 PRE-OPERATIVE EXAMINATION UNSPECIFIED 06/18/2011 JAY LAL PHD 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 06/18/2011 JAY LAL PHD 521.00 UNSPECIFIED DENTAL CARIES 06/18/2011 JAY LAL PHD V04.81 FLU DX (MEDICARE ONLY) 06/18/2011 JAY LAL PHD V72.84 PRE-OPERATIVE EXAMINATION UNSPECIFIED 06/18/2011 PORTER DO MARNIE K 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 06/18/2011 PORTER DO MARNIE K 521.00 UNSPECIFIED DENTAL CARIES 06/18/2011 PORTER DO MARNIE K V04.81 FLU DX (MEDICARE ONLY) 06/18/2011 PORTER DO MARNIE K V72.84 PRE-OPERATIVE EXAMINATION UNSPECIFIED 06/18/2011 STEPHENIE OATES APRN 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 06/18/2011 STEPHENIE OATES APRN 521.00 UNSPECIFIED DENTAL CARIES 06/18/2011 STEPHENIE OATES APRN V04.81 FLU DX (MEDICARE ONLY) 06/18/2011 STEPHENIE OATES APRN V72.84 PRE-OPERATIVE EXAMINATION UNSPECIFIED 06/18/2011 STEPHENIE OATES APRN 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 06/18/2011 STEPHENIE OATES APRN 521.00 UNSPECIFIED DENTAL CARIES 06/18/2011 STEPHENIE OATES APRN V04.81 FLU DX (MEDICARE ONLY) 06/18/2011 STEPHENIE OATES APRN V72.84 PRE-OPERATIVE EXAMINATION UNSPECIFIED 06/18/2011 STEPHENIE OATES APRN 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 06/18/2011 STEPHENIE OATES APRN 521.00 UNSPECIFIED DENTAL CARIES 06/18/2011 STEPHENIE OATES APRN V04.81 FLU DX (MEDICARE ONLY) 06/18/2011 STEPHENIE OATES APRN V72.84 PRE-OPERATIVE EXAMINATION UNSPECIFIED 06/18/2011 MIKAELA COMMERCIAL TRUCK DRIVER, IRENE M 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 06/18/2011 MIKAELA COMMERCIAL TRUCK DRIVER, IERNE M 521.00 UNSPECIFIED DENTAL CARIES 06/18/2011 MIKAELA COMMERCIAL TRUCK DRIVER, IRENE M V04.81 FLU DX (MEDICARE ONLY) 06/18/2011 MIKAELA COMMERCIAL TRUCK DRIVER, IRENE M V72.84 PRE-OPERATIVE EXAMINATION UNSPECIFIED 06/18/2011 MIKAELA COMMERCIAL TRUCK DRIVER, IRENE M 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 06/18/2011 MIKAELA COMMERCIAL TRUCK DRIVER, IRENE M 521.00 UNSPECIFIED DENTAL CARIES 06/18/2011 MIKAELA COMMERCIAL TRUCK DRIVER, IRENE M V04.81 FLU DX (MEDICARE ONLY) 06/18/2011 MIKAELA COMMERCIAL TRUCK DRIVER, IRENE M V72.84 PRE-OPERATIVE EXAMINATION UNSPECIFIED 06/18/2011 MIKAELA COMMERCIAL TRUCK DRIVER, IRENE M 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 06/18/2011 MIKAELA COMMERCIAL TRUCK DRIVER, IRENE M 521.00 UNSPECIFIED DENTAL CARIES 06/18/2011 MIKAELA COMMERCIAL TRUCK DRIVER, IRENE M V04.81 FLU DX (MEDICARE ONLY) 06/18/2011 MIKAELA COMMERCIAL TRUCK DRIVER, IRENE M V72.84 PRE-OPERATIVE EXAMINATION UNSPECIFIED 06/22/2011 Ot 311 06/22/2011 Ot 319 06/22/2011 Ot 477.9 06/22/2011 Ot 521.00 06/22/2011 Ot 530.81 08/11/2011 ИВАН SOTELO STEPHENIE CARRILLO 381.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 TUBE DYSFUNCTION 08/11/2011 ИВАН SOTELO STEPHENIE CARRILLO 388.70 OTALGIA 08/11/2011 ИВАН REPORTS ANALYSIS MANAGER, STEPHENIE CARRILLO 786.07 WHEEZING 08/11/2011 381.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 TUBE DYSFUNCTION 08/11/2011 388.70 OTALGIA 08/11/2011 786.07 WHEEZING 08/11/2011 GENSWEIDER DDS, TASHI M 381.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 TUBE DYSFUNCTION 08/11/2011 GENSWEIDER DDS, TASHI M 388.70 OTALGIA 08/11/2011 GENSWEIDER DDS, TASHI M 786.07 WHEEZING 08/11/2011 ИВАН REPORTS ANALYSIS MANAGER, STEPHENIE CARRILLO 381.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 TUBE DYSFUNCTION 08/11/2011 ИВАН SOTELO STEPHENIE CARRILLO 388.70 OTALGIA 08/11/2011 ИВАН SOTELO STEPHENIE CARRILLO 786.07 WHEEZING 08/11/2011 381.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 TUBE DYSFUNCTION 08/11/2011 388.70 OTALGIA 08/11/2011 786.07 WHEEZING 08/11/2011 381.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 TUBE DYSFUNCTION 08/11/2011 388.70 OTALGIA 08/11/2011 786.07 WHEEZING 08/11/2011 381.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 TUBE DYSFUNCTION 08/11/2011 388.70 OTALGIA 08/11/2011 786.07 WHEEZING 08/11/2011 381.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 TUBE DYSFUNCTION 08/11/2011 388.70 OTALGIA 08/11/2011 786.07 WHEEZING 08/11/2011 ROSALINDA SINGLETARY DO 381.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 TUBE DYSFUNCTION 08/11/2011 ROSALINDA SINGLETARY DO 388.70 OTALGIA 08/11/2011 ROSALINDA SINGLETARY DO 786.07 WHEEZING 08/11/2011 LUKASZ CHOE, JAY Champagne 381.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 TUBE DYSFUNCTION 08/11/2011 LUKASZ CHOE, JAY Champagne 388.70 OTALGIA 08/11/2011 LUKASZ PHD, JAY Champagne 786.07 WHEEZING 08/11/2011 MARNIE PORTER DO 381.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 TUBE DYSFUNCTION 08/11/2011 PORTER DO, MARNIE K 388.70 OTALGIA 08/11/2011 MARNIE PORTER DO K 786.07 WHEEZING 08/11/2011 ИВАН SOTELO STEPHENIE CARRILLO 381.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 TUBE DYSFUNCTION 08/11/2011 OATESMIGEL ARNOLDN, STEPHENIE CARRILLO 388.70 OTALGIA 08/11/2011 ИВАН ARNOLDN, STEPHENIE CARRILLO 786.07 WHEEZING 08/11/2011 OATESMIGEL ARNOLDImer STEPHENIE CARRILLO 381.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 TUBE DYSFUNCTION 08/11/2011 ИВАН ARNOLDImer STEPHENIE CARRILLO 388.70 OTALGIA 08/11/2011 ИВАН ARNOLDN, STEPHENIE CARRILLO 786.07 WHEEZING 08/11/2011 OATESMIGEL ARNOLDN, STEPHENIE CARRILLO 381.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 TUBE DYSFUNCTION 08/11/2011 OATES APRN, STEPHENIE CARRILLO 388.70 OTALGIA 08/11/2011 ИВАН ARNOLDImer STEPHENIE CARRILLO 786.07 WHEEZING 08/11/2011 IRENE BRYAN 381.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 TUBE DYSFUNCTION 08/11/2011 IRENE BRYAN M 388.70 OTALGIA 08/11/2011 IRENE BRYAN M 786.07 WHEEZING 08/11/2011 MIKAELA ALVAREZ, IRENE M 381.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 TUBE DYSFUNCTION 08/11/2011 IRENE BRYAN M 388.70 OTALGIA 08/11/2011 IRENE BRYAN M 786.07 WHEEZING 08/11/2011 IRENE BRYAN M 381.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 TUBE DYSFUNCTION 08/11/2011 IRENE BRYAN M 388.70 OTALGIA 08/11/2011 IRENE BRYAN M 786.07 WHEEZING 08/21/2011 ИВАН SOTELO STEPHENIE CARRILLO 382.00 OTITIS MEDIA ACUTE SUPPURATIVE 08/21/2011 382.00 OTITIS MEDIA ACUTE SUPPURATIVE 08/21/2011 ANDREW PATTERSON, TASHI Munguia 382.00 OTITIS MEDIA ACUTE SUPPURATIVE 08/21/2011 ИВАН SOTELO STEPHENIE CARRILLO 382.00 OTITIS MEDIA ACUTE SUPPURATIVE 08/21/2011 382.00 OTITIS MEDIA ACUTE SUPPURATIVE 08/21/2011 382.00 OTITIS MEDIA ACUTE SUPPURATIVE 08/21/2011 382.00 OTITIS MEDIA ACUTE SUPPURATIVE 08/21/2011 382.00 OTITIS MEDIA ACUTE SUPPURATIVE 08/21/2011 ROSALINDA SINGLETARY DO 382.00 OTITIS MEDIA ACUTE SUPPURATIVE 08/21/2011 LUKASZ CHOE, JAY Champagne 382.00 OTITIS MEDIA ACUTE SUPPURATIVE 08/21/2011 MARNIE PORTER DO 382.00 OTITIS MEDIA ACUTE SUPPURATIVE 08/21/2011 ИВАН ARNOLDN, STEPHENIE GERARDO 382.00 OTITIS MEDIA ACUTE SUPPURATIVE 08/21/2011 ИВАН ARNOLDN, STEPHENIE GERARDO 382.00 OTITIS MEDIA ACUTE SUPPURATIVE 08/21/2011 ИВАН ARNOLDN, STEPHENIE GERARDO 382.00 OTITIS MEDIA ACUTE SUPPURATIVE 08/21/2011 MIKAELA COMMERCIAL TRUCK DRIVER, IRENE M 382.00 OTITIS MEDIA ACUTE SUPPURATIVE 08/21/2011 MIKAELA COMMERCIAL TRUCK DRIVER, IRENE M 382.00 OTITIS MEDIA ACUTE SUPPURATIVE 08/21/2011 MIKAELA COMMERCIAL TRUCK DRIVER, IRENE M 382.00 OTITIS MEDIA ACUTE SUPPURATIVE 09/28/2011 ИВАН ARNOLDN, STEPHENIE CARRILLO 296.31 MO DEPRESSIVE RECURRENT MILD 09/28/2011 ИВАН ARNOLDImer STEPHENIE GERARDO 318.0 MODERATE MENTAL RETARDATION 09/28/2011 296.31 MO DEPRESSIVE RECURRENT MILD 09/28/2011 318.0 MODERATE MENTAL RETARDATION 09/28/2011 LEONCIOEISANA DDS, TASHI M 296.31 MO DEPRESSIVE RECURRENT MILD 09/28/2011 ANDREW DDS, TASHI M 318.0 MODERATE MENTAL RETARDATION 09/28/2011 ИВАН ARNOLDImer STEPHENIE CARRILLO 296.31 MO DEPRESSIVE RECURRENT MILD 09/28/2011 ИВАН ARNOLDNSTEPHENIE 318.0 MODERATE MENTAL RETARDATION 09/28/2011 296.31 MO DEPRESSIVE RECURRENT MILD 09/28/2011 318.0 MODERATE MENTAL RETARDATION 09/28/2011 296.31 MO DEPRESSIVE RECURRENT MILD 09/28/2011 318.0 MODERATE MENTAL RETARDATION 09/28/2011 296.31 MO DEPRESSIVE RECURRENT MILD 09/28/2011 318.0 MODERATE MENTAL RETARDATION 09/28/2011 296.31 MO DEPRESSIVE RECURRENT MILD 09/28/2011 318.0 MODERATE MENTAL RETARDATION 09/28/2011 ROSALINDA SINGLETARY DO F 296.31 MO DEPRESSIVE RECURRENT MILD 09/28/2011 ROSALINDA SINGLETARY DO 318.0 MODERATE MENTAL RETARDATION 09/28/2011 LUKASZ CHOE, JAY Champagne 296.31 MO DEPRESSIVE RECURRENT MILD 09/28/2011 LUKASZ CHOE, JAY Champagne 318.0 MODERATE MENTAL RETARDATION 09/28/2011 PORTER DO MARNIE K 296.31 MO DEPRESSIVE RECURRENT MILD 09/28/2011 PORTER DO, MARNIE K 318.0 MODERATE MENTAL RETARDATION 09/28/2011 OATES REPORTS ANALYSIS MANAGER, STEPHENIE GERARDO 296.31 MO DEPRESSIVE RECURRENT MILD 09/28/2011 OATES REPORTS ANALYSIS MANAGER, STEPHENIE GERARDO 318.0 MODERATE MENTAL RETARDATION 09/28/2011 [employer] REPORTS ANALYSIS MANAGER, STEPHENIE GERARDO 296.31 MO DEPRESSIVE RECURRENT MILD 09/28/2011 [employer]ATES REPORTS ANALYSIS MANAGER, STEPHENIE GERARDO 318.0 MODERATE MENTAL RETARDATION 09/28/2011 [employer]ATES REPORTS ANALYSIS MANAGER, STEPHENIE GERARDO 296.31 MO DEPRESSIVE RECURRENT MILD 09/28/2011 [employer]ATES REPORTS ANALYSIS MANAGER, STEPHENIE GERARDO 318.0 MODERATE MENTAL RETARDATION 09/28/2011 MIKAELA COMMERCIAL TRUCK DRIVER, IRENE M 296.31 MO DEPRESSIVE RECURRENT MILD 09/28/2011 MIKAELA COMMERCIAL TRUCK DRIVER, IRENE M 318.0 MODERATE MENTAL RETARDATION 09/28/2011 MIKAELA COMMERCIAL TRUCK DRIVER, IRENE M 296.31 MO DEPRESSIVE RECURRENT MILD 09/28/2011 MIKAELA COMMERCIAL TRUCK DRIVER, IRENE M 318.0 MODERATE MENTAL RETARDATION 09/28/2011 MIKAELA COMMERCIAL TRUCK DRIVER, IRENE M 296.31 MO DEPRESSIVE RECURRENT MILD 09/28/2011 MIKAELA COMMERCIAL TRUCK DRIVER, IRENE M 318.0 MODERATE MENTAL RETARDATION 10/15/2011 [employer] REPORTS ANALYSIS MANAGER, STEPHENIE GERARDO 296.32 MO DEPRESSIVE RECURRENT MODERATE 10/15/2011 296.32 MO DEPRESSIVE RECURRENT MODERATE 10/15/2011 ANDREW REDDYS, TASHI M 296.32 MO DEPRESSIVE RECURRENT MODERATE 10/15/2011 [employer] REPORTS ANALYSIS MANAGER, STEPHENIE GERARDO 296.32 MO DEPRESSIVE RECURRENT MODERATE 10/15/2011 296.32 MO DEPRESSIVE RECURRENT MODERATE 10/15/2011 296.32 MO DEPRESSIVE RECURRENT MODERATE 10/15/2011 296.32 MO DEPRESSIVE RECURRENT MODERATE 10/15/2011 296.32 MO DEPRESSIVE RECURRENT MODERATE 10/15/2011 ROSALINDA SINGLETARY DO 296.32 MO DEPRESSIVE RECURRENT MODERATE 10/15/2011 LUKASZ CHOE, JAY Champagne 296.32 MO DEPRESSIVE RECURRENT MODERATE 10/15/2011 MARNIE PORTER DO K 296.32 MO DEPRESSIVE RECURRENT MODERATE 10/15/2011 [employer]ATES REPORTS ANALYSIS MANAGER, STEPHENIE GERARDO 296.32 MO DEPRESSIVE RECURRENT MODERATE 10/15/2011 [employer] REPORTS ANALYSIS MANAGER, STEPHENIE GERARDO 296.32 MO DEPRESSIVE RECURRENT MODERATE 10/15/2011 OATESSTEPHENIE LAINEZ APRN 296.32 MO DEPRESSIVE RECURRENT MODERATE 10/15/2011 IRENE BRYAN 296.32 MO DEPRESSIVE RECURRENT MODERATE 10/15/2011 IRENE BRYAN 296.32 MO DEPRESSIVE RECURRENT MODERATE 10/15/2011 IRENE BRYAN 296.32 MO DEPRESSIVE RECURRENT MODERATE 05/11/2012 STEPHENIE OATES APRN 317 MENTAL RETARDATION-MILD 05/11/2012 317 MENTAL RETARDATION-MILD 05/11/2012 TASHI MORALES DDS 317 MENTAL RETARDATION-MILD 05/11/2012 ИВАН SOTELOSTEPHENIE 317 MENTAL RETARDATION-MILD 05/11/2012 317 MENTAL RETARDATION-MILD 05/11/2012 317 INTELLECTUAL DISABILITIES MILD 05/11/2012 317 INTELLECTUAL DISABILITIES MILD 05/11/2012 317 INTELLECTUAL DISABILITIES MILD 05/11/2012 ROSALINDA SINGLETARY DO 317 INTELLECTUAL DISABILITIES MILD 05/11/2012 LUKASZ CHOE, JAY Champagne 317 INTELLECTUAL DISABILITIES MILD 05/11/2012 MARNIE PORTER DO 317 INTELLECTUAL DISABILITIES MILD 05/11/2012 STEPHENIE OATES APRN 317 INTELLECTUAL DISABILITIES MILD 05/11/2012 STEPHENIE OATES APRN 317 INTELLECTUAL DISABILITIES MILD 05/11/2012 STEPHENIE OATES APRN 317 INTELLECTUAL DISABILITIES MILD 05/11/2012 IRENE BRYAN 317 INTELLECTUAL DISABILITIES MILD 05/11/2012 IRENE BRYAN 317 INTELLECTUAL DISABILITIES MILD 05/11/2012 IRENE BRYAN 317 INTELLECTUAL DISABILITIES MILD 07/17/2012 Ot 401.9 HYPERTENSION NOS 07/17/2012 Ot 428.0 CONGESTIVE HEART FAILURE NOS 07/17/2012 Ot 786.50 CHEST PAIN NOS 07/17/2012 Ot V04.81 ND FOR PROPHYLACTIC VACCIN AND INOCULATI 07/17/2012 Ot V58.69 OTH MED,LT, CURRENT USE 07/21/2012 TASHI MORALES DDS 300.02 AN GEN ANXIETY 07/21/2012 ИВАН SOTELO STEPHENIE CARRILLO 300.02 AN GEN ANXIETY 07/21/2012 300.02 GENERALIZED ANXIETY DISORDER 07/21/2012 300.02 GENERALIZED ANXIETY DISORDER 07/21/2012 300.02 GENERALIZED ANXIETY DISORDER 07/21/2012 300.02 GENERALIZED ANXIETY DISORDER 07/21/2012 ROSALINDA SINGLETARY DO 300.02 GENERALIZED ANXIETY DISORDER 07/21/2012 LUKASZ CHOE, JAY Champagne 300.02 GENERALIZED ANXIETY DISORDER 07/21/2012 MARNIE PORTER DO 300.02 GENERALIZED ANXIETY DISORDER 07/21/2012 STEPHENIE OATES APRN 300.02 GENERALIZED ANXIETY DISORDER 07/21/2012 STEPHENIE OATES APRN 300.02 GENERALIZED ANXIETY DISORDER 07/21/2012 STEPHENIE OATES APRN 300.02 GENERALIZED ANXIETY DISORDER 07/21/2012 IRENE BRYAN 300.02 GENERALIZED ANXIETY DISORDER 07/21/2012 IRENE BRYAN 300.02 GENERALIZED ANXIETY DISORDER 07/21/2012 IRENE BRYAN 300.02 GENERALIZED ANXIETY DISORDER 08/15/2012 STEPHENIE OATES APRN 300.3 AN OBCESS COMP DIS 08/15/2012 300.3 AN OBCESS COMP DIS 08/15/2012 300.3 AN OBCESS COMP DIS 08/15/2012 300.3 AN OBCESS COMP DIS 08/15/2012 300.3 AN OBCESS COMP DIS 08/15/2012 ROSALINDA SINGLETARY DO 300.3 AN OBCESS COMP DIS 08/15/2012 LUKASZ CHOE, JAY Champagne 300.3 AN OBCESS COMP DIS 08/15/2012 MARNIE PORTER DO 300.3 AN OBCESS COMP DIS 08/15/2012 STEPHENIE OATES APRN 300.3 AN OBCESS COMP DIS 08/15/2012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
== END 2017-08-26 21:00 | disposition home or self-care (01) ==
LOC: EDUNIT# 17:39 → ER 17:41
DX: R07.89 Other chest pain (principal); J45.901 Unspecified asthma with (acute) exacerbation; R10.32 Left lower quadrant pain; K21.9 Gastro-esophageal reflux disease without esophagitis; Z82.49 Family history of ischemic heart disease and other diseases of the circulatory system; Z88.1 Allergy status to other antibiotic agents; Z79.52 Long term (current) use of systemic steroids
CPT/HCPCS: 36415; 71045; 74177; 80053; 81000; 82962; 83690; 83735; 83874; 83880; 84484; 85025; 85379; 85610; 85730; 93005; 93041; 94640; 96361; 96374; 96375

== ENCOUNTER 2017-12-19 11:34 | Emergency (ER) | payer MEDICARE, MEDICAID ==
[~2017-12-19] VITALS: Ht 175.3 cm; Wt 136.1 kg
--- NOTE | 2017-12-19 12:21 | ED GI ---
General Chief Complaint: Abdominal/GI Problems Stated Complaint: DIARHHEA Nursing Triage Note: pt c/o v/d that started this am. rates abdominal pain 04/27 Sepsis Screen: No Definite Risk Source of Information: Patient, Family Exam Limitations: Physical Impairments History of Present Illness Date Seen by Provider: Dec 19, 2017 Time Seen by Provider: 12:09 Initial Comments The patient presents to the ER by private conveyance with chief complaint that he is having nausea vomiting and diarrhea started up this morning. He has not been on any sick contacts, camping or drinking any unsafe water or traveling outside the [facility]. He has had a dry nonproductive cough recently. He has no ear pain or feeling of underwater, runny nose or sore throat. They have not given him anything for his symptoms at home. He is having a little bit of pain and points towards his umbilicus. Patient's able to give limited history secondary to baseline cognitive deficits. He has had his gallbladder out but no other surgeries on his abdomen. Allergies and Home Medications Allergies Coded Allergies: NKANo Known Allergies (Unverified Allergy, Mild, 09/22/09) Home Medications Clonazepam 0.5 Mg Tablet, 1 EACH PO BID PRN, (Reported) Lactobacillus Rhamnosus Gg 1 Each Capsule, 1 EACH PO DAILY, (Reported) Loratadine 10 Mg Tablet, 10 MG PO DAILY, (Reported) Lurasidone Hcl 40 Mg Tablet, 40 MG PO DAILY, (Reported) Montelukast Sodium 10 Mg Tablet, 10 MG PO DAILY, (Reported) Olanzapine 10 Mg Tablet, 10 MG PO HS, (Reported) Omeprazole 20 Mg Capsule.dr, 20 MG PO DAILY, (Reported) Propranolol Hcl 20 Mg Tablet, 20 MG PO TID, (Reported) Sertraline Hcl 100 Mg Tablet, 100 MG PO DAILY, (Reported) Sucralfate 1 Gm Tab, 1 GM PO ACHS Prescribed by: SARAH ABDI on 07/17/12 1607 Topiramate 50 Mg Tablet, 50 MG PO BID, (Reported) Patient Home Medication List Home Medication List Reviewed: Yes Review of Systems Constitutional: No chills, No diaphoresis, No fever; malaise EENTM: No Blurred Vision, No Double Vision, No Ear Drainage, No Ear Pain, No Mouth Pain, No Mouth Swelling, No Nose Congestion, No Throat Pain Respiratory: Denies Cough, Denies Shortness of Air, Denies Wheezing Cardiovascular: Denies Chest Pain, Denies Lightheadedness, Denies Palpitations Gastrointestinal: Denies Abdomen Distended; Abdominal Pain; Denies Constipated ; Diarrhea; Denies Difficulty Swallowing; Nausea, Poor Fluid Intake, Vomiting Genitourinary: Denies Burning, Denies Discharge Musculoskeletal: No back pain, No joint pain Skin: No pruritus, No rash Psychiatric/Neurological: Denies Headache, Denies Numbness Past Auihbce-Hyygjr-Zwkzwp Hx Patient Social History Alcohol Use: Denies Use Recreational Drug Use: No Smoking Status: Never a Smoker Recent Foreign Travel: No Contact w/Someone Who Travel: No Recent Infectious Disease Expo: No Recent Hopitalizations: No Immunizations Up To Date Tetanus Booster (TDap): Unknown Date of Influenza Vaccine: Jun 02, 2012 Seasonal Allergies Seasonal Allergies: Yes (Allergic rhinitis) Past Medical History Surgeries: Yes Gallbladder Respiratory: Yes (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) Asthma Cardiac: Yes (History of pericarditis) 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, ESSENTIAL TREMORS) Developmental Disorder Genitourinary: No Gastrointestinal: Yes Gastroesophageal Reflux Musculoskeletal: No Endocrine: No (OBESITY) HEENT: No Cancer: No Psychosocial: Yes (mentally challenged, mood disorder) Integumentary: No (See trauma flow sheet picture: extensive bruising) Blood Disorders: No Family Medical History Heart Disease Physical Exam Vital Signs Vital Signs - First Documented 12/19/17 11:49 Temp 99.9 Pulse 120 Resp 22 B/P (MAP) 172/109 (130) O2 Delivery Room Air Capillary Refill : Less Than 3 Seconds General Appearance: WD/WN, no apparent distress HEENT: PERRL/EOMI, normal ENT inspection, pharynx normal (Oropharynx dry), TM abnormal (L) (mild injection without dullness or loss of landmarks of the TM) Neck: non-tender, full range of motion, supple, normal inspection Cardiovascular: normal peripheral pulses, regular rate, rhythm, no edema, no murmur, tachycardia (110) Peripheral Pulses: 2+ Radial Pulses (R), 2+ Radial Pulses (L) Gastrointestinal: normal bowel sounds, non tender, soft, no organomegaly Extremities: normal range of motion, non-tender, normal inspection, no pedal edema, no calf tenderness, normal capillary refill Neurologic/Psychiatric: alert, normal mood/affect Skin: normal color, warm/dry Progress/Results/Core Measures Results/Orders Lab Results Laboratory Tests Test 12/19/17 12:28 12/19/17 12:49 Range/Units Urine Color YELLOW Urine Clarity CLEAR Urine pH 5 5-9 Urine Specific [place] 1.020 1.016-1.022 Urine Protein 1+ H NEGATIVE Urine Glucose (UA) NEGATIVE NEGATIVE Urine Ketones NEGATIVE NEGATIVE Urine Nitrite NEGATIVE NEGATIVE Urine Bilirubin NEGATIVE NEGATIVE Urine Urobilinogen NORMAL NORMAL MG/DL Urine Leukocyte Esterase 1+ H NEGATIVE Urine RBC (Auto) 1+ H NEGATIVE Urine RBC NONE /HPF Urine WBC NONE /HPF Urine Squamous Epithelial Cells 0-2 /HPF Urine Crystals NONE /LPF Urine Bacteria NEGATIVE /HPF Urine Casts NONE /LPF Urine Mucus SMALL H /LPF Urine Culture Indicated NO White Blood Count 12.4 H 4.3-11.0 10^3/uL Red Blood Count 5.51 4.35-5.85 10^6/uL Hemoglobin 16.0 13.3-17.7 G/DL Hematocrit 47 40-54 % Mean Corpuscular Volume 85 80-99 FL Mean Corpuscular Hemoglobin 29 25-34 PG Mean Corpuscular Hemoglobin Concent 34 32-36 G/DL Red Cell Distribution Width 12.8 10.0-14.5 % Platelet Count 335 130-400 10^3/uL Mean Platelet Volume 10.3 7.4-10.4 FL Neutrophils (%) (Auto) 80 H 42-75 % Lymphocytes (%) (Auto) 10 L 12-44 % Monocytes (%) (Auto) 8 0-12 % Eosinophils (%) (Auto) 2 0-10 % Basophils (%) (Auto) 0 0-10 % Neutrophils # (Auto) 10.0 H 1.8-7.8 X 10^3 Lymphocytes # (Auto) 1.2 1.0-4.0 X 10^3 Monocytes # (Auto) 1.0 0.0-1.0 X 10^3 Eosinophils # (Auto) 0.2 0.0-0.3 10^3/uL Basophils # (Auto) 0.0 0.0-0.1 10^3/uL Sodium Level 140 135-145 MMOL/L Potassium Level 4.1 3.6-5.0 MMOL/L Chloride Level 104 98-107 MMOL/L Carbon Dioxide Level 26 21-32 MMOL/L Anion Gap 10 5-14 MMOL/L Blood Urea Nitrogen 9 7-18 MG/DL Creatinine 0.86 0.60-1.30 MG/DL Estimat Glomerular Filtration Rate > 60 BUN/Creatinine Ratio 10 Glucose Level 150 H 70-105 MG/DL Calcium Level 9.2 8.5-10.1 MG/DL Magnesium Level 2.2 1.8-2.4 MG/DL Total Bilirubin 0.8 0.1-1.0 MG/DL Aspartate Amino Transf (AST/SGOT) 23 5-34 U/L Alanine Aminotransferase (ALT/SGPT) 55 0-55 U/L Alkaline Phosphatase 58 40-136 U/L Total Protein 7.8 6.4-8.2 GM/DL Albumin 4.4 3.2-4.5 GM/DL Lipase 8 8-78 U/L My Orders Orders - SHANIQUE GALDAMEZ Cbc With Automated Diff (12/19/17 12:16) Comprehensive Metabolic Panel (12/19/17 12:16) Lipase (12/19/17 12:16) Magnesium (12/19/17 12:16) Ua Culture If Indicated (12/19/17 12:16) Saline Lock/Iv-Start (12/19/17 12:16) Ns Iv 1000 Ml (Sodium Chloride 0.9%) (12/19/17 12:16) Ondansetron Injection (Zofran Injectio (12/19/17 12:30) Ketorolac Injection (Toradol Injection) (12/19/17 12:30) Ct Abd/Pelv W (Appendicitis) (12/19/17 13:25) Fentanyl Injection (Sublimaze Injection (12/19/17 13:30) Iohexol Injection (Omnipaque 350 Mg/Ml 1 (12/19/17 13:30) Ns (Ivpb) (Sodium Chloride 0.9% Ivpb Bag (12/19/17 13:30) Medications Given in ED Current Medications Medications Dose Ordered Sig/Yudi Route Start Time Stop Time Status Last Admin Dose Admin Fentanyl Citrate 50 mcg ONCE ONCE IVP 12/19/17 13:30 12/19/17 13:31 DC 12/19/17 13:57 50 MCG Iohexol 100 ml ONCE ONCE IV 12/19/17 13:30 12/19/17 13:35 DC 12/19/17 13:38 100 ML Ketorolac Tromethamine 15 mg ONCE ONCE IVP 12/19/17 12:30 12/19/17 12:31 DC 12/19/17 12:53 15 MG Ondansetron HCl 4 mg ONCE ONCE IVP 12/19/17 12:30 12/19/17 12:31 DC 12/19/17 12:52 4 MG Sodium Chloride 100 ml ONCE ONCE IV 12/19/17 13:30 12/19/17 13:35 DC 12/19/17 13:38 100 ML Vital Signs/I&O 12/19/17 11:49 Temp 99.9 Pulse 120 Resp 22 B/P (MAP) 172/109 (130) O2 Delivery Room Air Blood Pressure Mean: 130 Progress Progress Note #1: Time: 12:25 Progress Note We have discussed that the most likely diagnosis is a viral gastroenteritis given his viral-appearing left ear and his cough. We have offered to treat symptomatically and observe at home versus do some workup and the family feels would be preferable to do workup. We'll go ahead and give him a couple liters of fluid some NSAIDs for his pain and nausea medicines while he waits on his lab work. If we can obtain urinalysis we will get. Progress Note #2: Time: 13:25 Progress Note Mild white count elevation which can be seen in gastroenteritis but the patient remarks that his pain has not really improved. He still points to the umbilicus. Appendicitis, diverticulitis could be in the differential still. Doctor again to the caregivers and they do not reassure me with a history of giving or that there understanding how to take care of him and observe him for worsening symptoms so we will go ahead and obtain a CT scan with contrast of his abdomen. We'll give him a dose of fentanyl which may help with his diarrhea as well see if that improves his pain status. His high blood pressure and continued tachycardia despite 1 L fluids also concerns me that maybe indicators of pain. Diagnostic Imaging Diagonstic Imaging: CT (c/contrast) Plain Films/CT/US/NM/MRI: abdomen, pelvis Comments VIA [facility]. [place], [place] NAME: YOLY EVANS [facility] REC#: [id number] PT STATUS: REG ER : 1980 PHYSICIAN: SHANIQUE GALDAMEZ MD ADMIT DATE: 12/19/17/ER Draft Date of Exam:12/19/17 CT ABD/PELV W (APPENDICITIS) PROCEDURE: CT abdomen and pelvis with contrast, rule out appendicitis. TECHNIQUE: Multiple contiguous axial images were obtained through the abdomen and pelvis after the administration of intravenous contrast. INDICATION: Left lower quadrant pain The previous CT abdomen/pelvis exam of 08/26/2017 failed to show any sign of an acute abnormality. On this study the appendix was visualized and is not abnormally thickened. There is no distortion of periappendiceal fat to suggest acute appendicitis however. There may be a few diverticula in the sigmoid colon but there is no sign of acute diverticulitis. There is no pelvic mass or free fluid collection noted. The urinary bladder and prostate gland are grossly unremarkable. There is no evidence for a nephrolithiasis and the kidneys do not seem to be obstructed. The small cyst in the right kidney seen previously is again evident. There are a few fluid-filled segments of small bowel in the left midabdomen. These are nonspecific but could be secondary to a mild ileus perhaps related to enteritis. Clinical followup is recommended. As seen on the prior exam the appearance of liver does suggest fatty metamorphosis. The gallbladder is surgically absent. The pancreas, the spleen, the adrenals, aorta and inferior vena cava show no sign of an acute abnormality. The stomach is filled with fluid and particulate white matter consequently difficult to assess. Lung bases are clear. The bone windows show no evidence for a fracture or for a destructive lesion. IMPRESSION: 1. There is no acute abnormality of the abdomen or pelvis. Particularly, there is no sign of acute appendicitis. 2. The fluid-filled segments in the left midabdomen are nonspecific but could be related to a mild ileus perhaps related to enteritis. Clinical followup is recommended. 3. There is diverticulosis of the sigmoid colon without evidence for acute diverticulitis. Dictated on workstation # [id number] Dict: 12/19/17 1405 Trans: 12/19/17 1418 [facility] [id number] Interpreted by: PRASAD OWEN MD Electronically signed by: Reviewed: Reviewed by Me Departure Impression Primary Impression: Gastroenteritis and colitis, viral Disposition: HOME, SELF-CARE Condition: Improved Departure-Patient Inst. Decision time for Depature: 15:04 Referrals: [facility] (PCP/Family) Primary Care Physician Patient Instructions: Viral Gastroenteritis, Adult (DC) Add. Discharge Instructions: 1 tablet of Zofran every 6 hours as needed for nausea Drink plenty of fluids. Clear liquid diet and advance as he tolerates it towards a BRAT diet consisting of bland, high fiber foods such as bananas, rice, applesauce or toast. If the diarrhea persists for more than 48 hours or you're unable to keep up with fluid intake you can start with 2 tablets of Imodium followed by one tablet every 4 hours until the diarrhea has slowed down. Follow-up with the PCP if your symptoms are not improving in 3-5 days. All discharge instructions reviewed with patient and/or family. Voiced understanding. Scripts Ondansetron (Ondansetron Odt) 4 Mg Tab.rapdis 4 MG PO Q6H PRN for NAUSEA/VOMITING, #8 TAB 0 Refills Prov: SHANIQUE GALDAMEZ 12/19/17 Copy Copies To 1: MARNIE PORTER DO SHANIQUE GALDAMEZ Dec 19, 2017 12:21
[2017-12-19] MEDS ORDERED: ONDANSETRON 4 MG/2 ML (SDV) Z0FRAN IVP ONE (12:30)
[2017-12-19] MEDS ORDERED: KETOROLAC 30 MG/ML VIAL IVP ONE (12:30)
[2017-12-19 12:38] LABS: BILIRUBIN,URINE NEGATIVE (NEGATIVE); CLARITY,URINE CLEAR; COLOR,URINE YELLOW; GLUCOSE, URINE (UA) NEGATIVE (NEGATIVE); KETONES,URINE NEGATIVE (NEGATIVE); LEUKOCYTE ESTERASE ,URINE 1+ (NEGATIVE); NITRITE,URINE NEGATIVE (NEGATIVE); PH,URINE 5 (5-9); PROTEIN,URINE 1+ (NEGATIVE); UROBILINOGEN,URINE NORMAL (NORMAL)
[2017-12-19 12:51] LABS: BACTERIA,URINE NEGATIVE /HPF; SQUAMOUS EPITHELIAL CELL,UR 0-2 /HPF
[2017-12-19] MEDS: NS IV 1000 ML 1,000 ML IV SCH ×2 (12:54→13:38)
[2017-12-19 12:58] LABS: BASOPHILS % (AUTO) 0 % (0-10); EOSINOPHILS # (AUTO) 0.2 10^3/uL (0.0-0.3); EOSINOPHILS % (AUTO) 2 % (0-10); HEMATOCRIT 47 % (40-54); LYMPHOCYTES # (AUTO) 1.2 X 10^3 (1.0-4.0); LYMPHOCYTES % (AUTO) 10 % (12-44); MEAN CORPUSCULAR HEMOGLOBIN 29 PG (25-34); MEAN CORPUSCULAR HGB CONC 34 G/DL (32-36); MEAN CORPUSCULAR VOLUME 85 FL (80-99); MEAN PLATELET VOLUME 10.3 FL (7.4-10.4); MONOCYTES % (AUTO) 8 % (0-12); NEUTROPHILS % (AUTO) 80 % (42-75); PLATELET COUNT 335 10^3/uL (130-400); RED BLOOD COUNT 5.51 10^6/uL (4.35-5.85); RED CELL DISTRIBUTION WIDTH 12.8 % (10.0-14.5); WHITE BLOOD COUNT 12.4 10^3/uL (4.3-11.0)
[2017-12-19 13:15] LABS: ALANINE AMINOTRANSFERASE 55 U/L (0-55); ALBUMIN 4.4 GM/DL (3.2-4.5); ALKALINE PHOSPHATASE 58 U/L (40-136); BILIRUBIN,TOTAL 0.8 MG/DL (0.1-1.0); BUN/CREATININE RATIO 10; CALCIUM 9.2 MG/DL (8.5-10.1); CARBON DIOXIDE 26 MMOL/L (21-32); CHLORIDE 104 MMOL/L (98-107); CREATININE SERUM 0.86 MG/DL (0.60-1.30); GFR ESTIMATED > 60; GLUCOSE 150 MG/DL (70-105); LIPASE 8 U/L (8-78); MAGNESIUM 2.2 MG/DL (1.8-2.4); POTASSIUM 4.1 MMOL/L (3.6-5.0); SODIUM 140 MMOL/L (135-145); TOTAL PROTEIN 7.8 GM/DL (6.4-8.2)
[2017-12-19] MEDS ORDERED: IOHEXOL 350 MG/ML 100 ML (OMNIPAQUE 350) VIAL IV ONE (13:30)
[2017-12-19] MEDS ORDERED: fentaNYL INJECTION 100 MCG/2 ML AMP IVP ONE (13:30)
[2017-12-19] MEDS ORDERED: NS 100 ML (IVPB) BAG IV ONE (13:30)
--- NOTE | 2017-12-19 14:18 | Diagnostic Imaging Report ---
PROCEDURE: CT abdomen and pelvis with contrast, rule out appendicitis. TECHNIQUE: Multiple contiguous axial images were obtained through the abdomen and pelvis after the administration of intravenous contrast. INDICATION: Left lower quadrant pain The previous CT abdomen/pelvis exam of 08/26/2017 failed to show any sign of an acute abnormality. On this study the appendix was visualized and is not abnormally thickened. There is no distortion of periappendiceal fat to suggest acute appendicitis however. There may be a few diverticula in the sigmoid colon but there is no sign of acute diverticulitis. There is no pelvic mass or free fluid collection noted. The urinary bladder and prostate gland are grossly unremarkable. There is no evidence for a nephrolithiasis and the kidneys do not seem to be obstructed. The small cyst in the right kidney seen previously is again evident. There are a few fluid-filled segments of small bowel in the left midabdomen. These are nonspecific but could be secondary to a mild ileus perhaps related to enteritis. Clinical followup is recommended. As seen on the prior exam the appearance of liver does suggest fatty metamorphosis. The gallbladder is surgically absent. The pancreas, the spleen, the adrenals, aorta and inferior vena cava show no sign of an acute abnormality. The stomach is filled with fluid and particulate white matter consequently difficult to assess. Lung bases are clear. The bone windows show no evidence for a fracture or for a destructive lesion. IMPRESSION: 1. There is no acute abnormality of the abdomen or pelvis. In particular, there is no sign of acute appendicitis. 2. The fluid-filled segments in the left midabdomen are nonspecific but could be related to a mild ileus perhaps related to enteritis. Clinical followup is recommended. 3. There is diverticulosis of the sigmoid colon without evidence for acute diverticulitis. Dictated by: Dictated on workstation # [id number]
[2017-12-19] MEDS ORDERED: ONDA4TAB11 PO (15:05)
[2017-12-19 15:23] VITALS: BP 142/99
== END 2017-12-19 15:23 | disposition home or self-care (01) ==
LOC: EDUNIT# 11:34 → ER 11:37
DX: A08.4 Viral intestinal infection, unspecified (principal); J45.909 Unspecified asthma, uncomplicated; K21.9 Gastro-esophageal reflux disease without esophagitis; E66.9 Obesity, unspecified; Z82.49 Family history of ischemic heart disease and other diseases of the circulatory system; Z68.41 Body mass index [BMI] 40.0-44.9, adult
CPT/HCPCS: 36415; 74177; 80053; 81000; 83690; 83735; 85025; 96361; 96374; 96375

== ENCOUNTER 2018-01-28 22:20 | Emergency (ER) | payer MEDICARE, MEDICAID ==
[~2018-01-28] VITALS: Ht 175.3 cm; Wt 136.3 kg
[~2018-01-28 22:20] MED LIST changes: +ONDA4TAB11 PO
--- NOTE | 2018-01-28 22:46 | ED General ---
General Stated Complaint: L ARM PAIN Source of Information: Patient, Family Exam Limitations: No Limitations (GENESIS MCNEAL MD) History of Present Illness Date Seen by Provider: Jan 28, 2018 Time Seen by Provider: 22:41 Initial Comments The patient is a 37-year-old intellectually impaired white male. He was apparently in bed for about an hour when he began to complain of pain in his left forearm. There is no known or admitted injury. He exhibits a tremor in the left hand. Family states that this is chronic. Timing/Duration: 1 Hour (GENESIS MCNEAL MD) Allergies and Home Medications Allergies Coded Allergies: NKANo Known Allergies (Unverified Allergy, Mild, 09/22/09) Home Medications Clonazepam 0.5 Mg Tablet, 1 EACH PO BID PRN, (Reported) Lactobacillus Rhamnosus Gg 1 Each Capsule, 1 EACH PO DAILY, (Reported) Loratadine 10 Mg Tablet, 10 MG PO DAILY, (Reported) Lurasidone Hcl 40 Mg Tablet, 40 MG PO DAILY, (Reported) Montelukast Sodium 10 Mg Tablet, 10 MG PO DAILY, (Reported) Olanzapine 10 Mg Tablet, 10 MG PO HS, (Reported) Omeprazole 20 Mg Capsule.dr, 20 MG PO DAILY, (Reported) Ondansetron 4 Mg Tab.rapdis, 4 MG PO Q6H PRN for NAUSEA/VOMITING Prescribed by: SHANIQUE GALDAMEZ on 12/19/17 1505 Propranolol Hcl 20 Mg Tablet, 20 MG PO TID, (Reported) Sertraline Hcl 100 Mg Tablet, 100 MG PO DAILY, (Reported) Sucralfate 1 Gm Tab, 1 GM PO ACHS Prescribed by: SARAH ABDI on 07/17/12 1607 Topiramate 50 Mg Tablet, 50 MG PO BID, (Reported) Patient Home Medication List Home Medication List Reviewed: Yes (WARREN AVITIA MD) Review of Systems Constitutional: see HPI EENTM: no symptoms reported Respiratory: no symptoms reported Cardiovascular: no symptoms reported Gastrointestinal: no symptoms reported Genitourinary: no symptoms reported Musculoskeletal: see HPI Skin: no symptoms reported Psychiatric/Neurological: No Symptoms Reported Hematologic/Lymphatic: No Symptoms Reported Immunological/Allergic: no symptoms reported (GENESIS MCNEAL MD) Past Hodqqbb-Fxfkxg-Iycgqf Hx Patient Social History Recent Foreign Travel: No Contact w/Someone Who Travel: No Recent Hopitalizations: No (GENESIS MCNEAL MD) Immunizations Up To Date Tetanus Booster (TDap): Unknown Date of Influenza Vaccine: Jun 02, 2012 (GENESIS MCNEAL MD) Seasonal Allergies Seasonal Allergies: Yes (Allergic rhinitis) (GENESIS MCNEAL MD) Past Medical History Surgeries: Yes Gallbladder Respiratory: Yes (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) Asthma Cardiac: Yes (History of pericarditis) 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, ESSENTIAL TREMORS) Developmental Disorder Genitourinary: No Gastrointestinal: Yes Gastroesophageal Reflux Musculoskeletal: No Endocrine: No (OBESITY) HEENT: No Cancer: No Psychosocial: Yes (mentally challenged, mood disorder) Integumentary: No (See trauma flow sheet picture: extensive bruising) Blood Disorders: No (GENESIS MCNEAL MD) Family Medical History Heart Disease (GENESIS MCNEAL MD) Physical Exam Vital Signs Vital Signs - First Documented 01/28/18 22:36 Temp 99.4 Pulse 103 Resp 20 B/P (MAP) 158/101 (120) Pulse Ox 96 O2 Delivery Room Air (WARREN AVITIA MD) Vital Signs Capillary Refill : (GENESIS MCNEAL MD) Height, Weight, BMI Height: 5'9.00" Weight: 300lbs. 9.0oz. 136.867976sb; 47.88 BMI Method:Estimated General Appearance: No Apparent Distress Eyes: Bilateral Eye Normal Inspection HEENT: Normal ENT Inspection Neck: Full Range of Motion, Normal Inspection Respiratory: Chest Non Tender, Lungs Clear, Normal Breath Sounds, No Accessory Muscle Use, No Respiratory Distress Cardiovascular: Regular Rate, Rhythm, No Edema, No Gallop, No JVD, No Murmur, Normal Peripheral Pulses Gastrointestinal: Normal Bowel Sounds, No Organomegaly, No Pulsatile Mass, Non Tender, Soft Extremity: Normal Capillary Refill Neurologic/Psychiatric: Alert, Oriented x3, No Motor/Sensory Deficits, Normal Mood/Affect Skin: Normal Color, Warm/Dry Lymphatic: No Adenopathy Comments The patient points to the left radius as the location of his pain. There is no deformity, no ecchymosis, no skin defect. 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 (GENESIS MCNEAL MD) Progress/Results/Core Measures Suspected Sepsis SIRS Temperature: Pulse: Respiratory Rate: Blood Pressure / Mean: (GENESIS MCNEAL MD) Results/Orders Lab Results Laboratory Tests Test 01/28/18 23:13 Range/Units White Blood Count 9.8 4.3-11.0 10^3/uL Red Blood Count 5.23 4.35-5.85 10^6/uL Hemoglobin 14.9 13.3-17.7 G/DL Hematocrit 45 40-54 % Mean Corpuscular Volume 86 80-99 FL Mean Corpuscular Hemoglobin 29 25-34 PG Mean Corpuscular Hemoglobin Concent 33 32-36 G/DL Red Cell Distribution Width 12.5 10.0-14.5 % Platelet Count 333 130-400 10^3/uL Mean Platelet Volume 10.1 7.4-10.4 FL Neutrophils (%) (Auto) 60 42-75 % Lymphocytes (%) (Auto) 25 12-44 % Monocytes (%) (Auto) 12 0-12 % Eosinophils (%) (Auto) 3 0-10 % Basophils (%) (Auto) 1 0-10 % Neutrophils # (Auto) 5.8 1.8-7.8 X 10^3 Lymphocytes # (Auto) 2.5 1.0-4.0 X 10^3 Monocytes # (Auto) 1.1 H 0.0-1.0 X 10^3 Eosinophils # (Auto) 0.3 0.0-0.3 10^3/uL Basophils # (Auto) 0.1 0.0-0.1 10^3/uL Sodium Level 141 135-145 MMOL/L Potassium Level 4.3 3.6-5.0 MMOL/L Chloride Level 102 98-107 MMOL/L Carbon Dioxide Level 28 21-32 MMOL/L Anion Gap 11 5-14 MMOL/L Blood Urea Nitrogen 14 7-18 MG/DL Creatinine 0.98 0.60-1.30 MG/DL Estimat Glomerular Filtration Rate > 60 BUN/Creatinine Ratio 14 Glucose Level 111 H 70-105 MG/DL Calcium Level 9.5 8.5-10.1 MG/DL Total Bilirubin 0.4 0.1-1.0 MG/DL Aspartate Amino Transf (AST/SGOT) 29 5-34 U/L Alanine Aminotransferase (ALT/SGPT) 61 H 0-55 U/L Alkaline Phosphatase 59 40-136 U/L Total Creatine Kinase 42 30-200 U/L Myoglobin 18.1 10.0-92.0 NG/ML Total Protein 7.4 6.4-8.2 GM/DL Albumin 4.4 3.2-4.5 GM/DL (WARREN AVITIA MD) My Orders Orders - WARREN AVITIA MD Forearm, Left, 2 Views (01/28/18 22:52) Humerus, Left, 2 Views (01/28/18 22:52) Wrist, Left, 3 Views Or More (01/29/18 00:21) Ketorolac Injection (Toradol Injection) (01/29/18 01:00) (WARREN AVITIA MD) Medications Given in ED Current Medications Medications Dose Ordered Sig/Yudi Route Start Time Stop Time Status Last Admin Dose Admin Ketorolac Tromethamine 15 mg ONCE ONCE IVP 01/29/18 01:00 01/29/18 01:00 DC 01/29/18 00:55 15 MG (WARREN AVITIA MD) Vital Signs/I&O 01/28/18 01/29/18 22:36 00:58 Temp 99.4 99.4 Pulse 103 103 Resp 20 20 B/P (MAP) 158/101 (120) 158/101 (120) Pulse Ox 96 96 O2 Delivery Room Air (WARREN AVITIA MD) Vital Signs/I&O Capillary Refill : (GENESIS MCNEAL MD) Progress Note : Progress Note Care of this patient was assumed from Dr. Mcneal. Patient was reexamined. He claimed to have tenderness throughout the left upper extremity. When asked identify the location of the pain he points to the left wrist. Labs were reviewed as ordered by Dr. Mcneal. X-ray of the left forearm and left humerus were unremarkable. A clear view of the wrist was desired and a dedicated wrist series was ordered. No acute abnormalities were identified. I suspect patient is having some discomfort related to the recent increase in tremor activity. Outpatient follow-up was recommended. (WARREN AVITIA MD) Diagnostic Imaging Diagonstic Imaging: Xray Plain Films/CT/US/NM/MRI: forearm Comments X-ray viewed by me. Report not yet available. No acute abnormalities appreciated. Diagonstic Imaging: Xray Plain Films/CT/US/NM/MRI: other (Left humerus) Comments X-ray viewed by me. Report not yet available. No acute abnormalities appreciated. Diagonstic Imaging: Xray Plain Films/CT/US/NM/MRI: other (Left wrist) Comments X-ray viewed by me. Report not yet available. No acute abnormalities appreciated. (WARREN AVITIA MD) Departure Impression Primary Impression: Left upper limb pain Additional Impression: Tremor Disposition: 01 HOME, SELF-CARE Condition: Improved Departure-Patient Inst. Decision time for Depature: 00:45 (WARREN AVITIA MD) Referrals: [facility] [place] ([place]) Primary Care Physician Patient Instructions: Tremor Add. Discharge Instructions: Follow-up with your primary care provider soon as possible. You may take ibuprofen up to 600 mg every 6 hours as needed for pain. Add Tylenol (acetaminophen) up to 1000 mg every 6 hours as needed for additional pain relief. Return to care if symptoms worsen or if you develop new symptoms such as redness , swelling, etc. Pain may be related to the recent increase in tremor. Consider treating tremor to help with the pain. GENESIS MCNEAL MD Jan 28, 2018 22:46 WARREN AVITIA MD Jan 29, 2018 00:49
[2018-01-28 23:25] LABS: BASOPHILS # (AUTO) 0.1 10^3/uL (0.0-0.1); BASOPHILS % (AUTO) 1 % (0-10); EOSINOPHILS # (AUTO) 0.3 10^3/uL (0.0-0.3); EOSINOPHILS % (AUTO) 3 % (0-10); HEMATOCRIT 45 % (40-54); HEMOGLOBIN 14.9 G/DL (13.3-17.7); LYMPHOCYTES # (AUTO) 2.5 X 10^3 (1.0-4.0); LYMPHOCYTES % (AUTO) 25 % (12-44); MEAN CORPUSCULAR HEMOGLOBIN 29 PG (25-34); MEAN CORPUSCULAR HGB CONC 33 G/DL (32-36); MEAN CORPUSCULAR VOLUME 86 FL (80-99); MEAN PLATELET VOLUME 10.1 FL (7.4-10.4); MONOCYTES # (AUTO) 1.1 X 10^3 (0.0-1.0); MONOCYTES % (AUTO) 12 % (0-12); NEUTROPHILS # (AUTO) 5.8 X 10^3 (1.8-7.8); NEUTROPHILS % (AUTO) 60 % (42-75); PLATELET COUNT 333 10^3/uL (130-400); RED BLOOD COUNT 5.23 10^6/uL (4.35-5.85); RED CELL DISTRIBUTION WIDTH 12.5 % (10.0-14.5); WHITE BLOOD COUNT 9.8 10^3/uL (4.3-11.0)
[2018-01-28 23:41] LABS: ALANINE AMINOTRANSFERASE 61 U/L (0-55); ALBUMIN 4.4 GM/DL (3.2-4.5); ALKALINE PHOSPHATASE 59 U/L (40-136); BILIRUBIN,TOTAL 0.4 MG/DL (0.1-1.0); BUN/CREATININE RATIO 14; CALCIUM 9.5 MG/DL (8.5-10.1); CARBON DIOXIDE 28 MMOL/L (21-32); CHLORIDE 102 MMOL/L (98-107); CREATINE KINASE 42 U/L (30-200); CREATININE SERUM 0.98 MG/DL (0.60-1.30); GFR ESTIMATED > 60; GLUCOSE 111 MG/DL (70-105); POTASSIUM 4.3 MMOL/L (3.6-5.0); SODIUM 141 MMOL/L (135-145); TOTAL PROTEIN 7.4 GM/DL (6.4-8.2)
[2018-01-28 23:47] LABS: MYOGLOBIN SERUM 18.1 NG/ML (10.0-92.0)
[2018-01-29 00:58] VITALS: BP 158/101
[2018-01-29] MEDS ORDERED: KETOROLAC 30 MG/ML VIAL IVP ONE (01:00)
--- NOTE | 2018-01-29 07:58 | Diagnostic Imaging Report ---
INDICATION: Left arm pain. TIME OF EXAM: 11:53 p.m. Two views of the left forearm were obtained. Alignment at the elbow and wrist appears normal. The radius and ulna appear intact and no fractures are seen. IMPRESSION: No acute bony abnormality is detected. Dictated by: Dictated on workstation # [id number]
--- NOTE | 2018-01-29 08:07 | Diagnostic Imaging Report ---
INDICATION: Left arm pain. No known trauma or injury. FINDINGS: These two views of the left humerus demonstrate no evidence to suggest shoulder dislocation or elbow malalignment. There is no suspicious bone lesion within the humerus. There is no cortical disruption to suggest fracture. The soft tissues demonstrate no focal abnormality. IMPRESSION: Negative radiographs of the left humerus. Dictated by: Dictated on workstation # [id number]
--- NOTE | 2018-01-29 08:16 | Diagnostic Imaging Report ---
INDICATION: Left wrist pain COMPARISON: None. FINDINGS: 3 views of the left wrist demonstrate no fracture or dislocation. There is some widening of the scapholunate articulation which could indicate ligamentous tear. Please correlate with point tenderness. IMPRESSION: Widening of the scapholunate articulation. Please correlate with point tenderness. This could represent acute or chronic scapholunate ligament tear. No overt fracture. Dictated by: Dictated on workstation # [id number]
--- OUTSIDE RECORDS SUMMARY | 2018-01-30 08:17 | XMS REPORT ---
Author Author JOAO KULKARNI [facility] Address [address] [place] [address] Care Team Providers Care Mail Reader Name Role Phone JOAO KULKARNI Unavailable PROBLEMS Type Condition ICD9-CM Code BCB18-WL Code Onset Dates Condition Status SNOMED Code Problem Unspecified episodic mood disorder 296.90 Active 146325241 Problem Major depressive disorder, recurrent episode, mild 296.31 Active 13335056 Problem Major depressive disorder, recurrent episode, moderate 296.32 Active 52092064 Problem Morbid (severe) obesity due to excess calories E66.01 Active 66578282965623 Problem Wheezing 786.07 Active 91062415 Problem Body mass index (BMI) of 40.0-44.9 in adult Z68.41 Active 497340445 Problem Encounter for long-term (current) use of other medications V58.69 Active 392626831 Problem Obsessive compulsive disorder F42 Active 702329959 Problem Mental retardation F79 Active 52604308 Problem Major depressive disorder, recurrent episode, in partial remission F33.41 Active 98330774 Problem Major depression, recurrent F33.9 Active 36893255 Problem Dysfunction of Eustachian tube 381.81 Active 85872658 Problem Moderate mental retardation 318.0 Active 79444343 Problem Unspecified otalgia 388.70 Active 83493368 Problem Acute suppurative otitis media without spontaneous rupture of eardrum 382.00 Active 03610165 Problem Obsessive-compulsive disorders 300.3 Active 072771046 Problem Generalized anxiety disorder 300.02 Active 19395128 Problem Mild mental retardation 317 Active 55972177 Problem Anxiety state, unspecified 300.00 Active 951447262 Problem Depressive disorder, not elsewhere classified 311 Active 32774670 Problem Unspecified psychosis 298.9 Active 48441318 ALLERGIES No Information ENCOUNTERS Encounter Location Date Diagnosis [facility] [address] [facility] [id number], [place] [address] Dec, [facility] [address] [id number] [address] November, [facility] [id number] [place] [address]- [address] Oct, [facility] [address] [id number], [place] [address] Jul, Acute nasopharyngitis J00 and Vomiting, intractability of vomiting not specified, presence of nausea not specified, unspecified vomiting type R11.10 [facility] [address] [id number], [place] [address] Jul, BMI 45.0-49.9, adult Z68.42 ; Major depressive disorder, recurrent episode, in partial remission F33.41 ; Mental retardation F79 and Obsessive compulsive disorder F42 [place] [address] [place] [address]774- 0031 Jul, High risk medication use Z79.899 [facility] [address] [place] [address]33- 0668 Jun, Morbid (severe) obesity due to excess calories E66.01 ; Body mass index (BMI) of 40.0-44.9 in adult Z68.41 ; Mental retardation F79 ; Elevated blood pressure reading R03.0 ; Screening for diabetes mellitus (DM) Z13.1 and Screening for lipid disorders Z13.[address] [place] [address]64- 8692 May, High risk medication use Z79.899 ; Major depressive disorder , recurrent episode, in partial remission F33.41 ; Mental retardation F79 and Obsessive compulsive disorder F42 [facility] [address] [id number], [place] [address] May, [place] [address] [id number], [place] [address] Apr, [address] [id number] [id number] Mar, [place] [address], [place] [address] Jan, Major depression, recurrent F33.9 ; Mental retardation F79 and Obsessive compulsive disorder F42 [facility] [address], [place] [address] November, Major depression, recurrent F33.9 and Obsessive compulsive disorder F42 [facility] [id number] [place] [address]34- 9827 Sep, [facility] [id number] [place] [address] 19071- 6645 Jun, Obsessive compulsive disorder F42 ; Mental retardation F79 and Major depressive disorder, recurrent episode, in partial remission F33.41 [facility] [address] [id number], [place] [address] Apr, [facility] [id number] [place] [address] 71379- 5677 Apr, Major depression, recurrent F33.9 ; Obsessive compulsive disorder F42 and Mental retardation F79 [facility] [address] [place] [address]77- 8385 Jan, [facility] [address], [place] [address] Jan, Major depression, recurrent F33.9 ; Obsessive compulsive disorder F42 and Mental retardation F79 [facility] [address], [place] [address] Dec, [facility] [address], [place] [address] [address], [facility] [id number] [place] [address] 04909- 2471 November, [facility] [address] [address] Oct, [facility] [id number] [place] [address] 37238- 1176 Oct, Obsessive compulsive disorder F42 ; Major depression, recurrent F33.9 and Mental retardation F79 [facility] [id number] [place] [address]9986- [address]72 Sep, [facility] [id number] [place] [address] 34195- 0666 17 Aug, 2015 [facility] [id number] [place] [address] 79808- 4183 Aug, [facility] [id number] [place] [address]- [address] Aug, [facility] [id number] [place] [address]- [address]30 Jul, [facility] [id number] [place] [address]- 3299 Jul, [facility] [id number] [place] [address]- 3973 Jul, [facility] [id number] [place] [address] 40103- 1813 Jun, Obsessive compulsive disorder F42 ; Major depression, recurrent F33.9 and Mental retardation F79 [facility] [address], [place] [address] Jun, [facility] [id number] [place] [address] 26182- [address]88 Jun, [facility] [id number] [place] [address] 98071- 7880 May, [facility] [id number] [place] [address] 43221- 5748 15 Apr, 2015 [facility] [id number] [place] [address] 643042- 0656 30 Mar, 2015 Generalized anxiety disorder 300.02 and Major depressive disorder, recurrent episode, mild 296.31 [facility] [id number] [place] [address] [place] [address]- [address] 14 Mar, 2015 [facility] [address] [facility] [id number], [place] [address] 13 Feb, 2015 [facility] [address] [place] [address] 325077- 9376 13 Jan, 2015 [facility] [id number] [place] [address] 46766- 1104 10 Dec, 2014 Generalized anxiety disorder 300.02 and Depressive disorder , not elsewhere classified 311 [facility] [address] [facility] [id number] [place] [address], [place] [address]- 4923 14 Oct, 2014 [facility] [id number] [place] [address] 37090- 2348 13 Oct, 2014 [facility] [id number] [place] [address] 59465- 5139 11 Sep, 2014 [facility] [id number] [place] [address] 10611- 0486 Sep, [facility] [address], [place] [address]- 1549 Jun, [facility] [id number] [place] [address] 50504- 6787 Jun, [facility] [address], [place] [address]- 8453 19 May, 2014 [facility] [address], [place] [address]- 0710 18 May, 2014 [facility] [address] [id number], [place] [address]- 2455 18 May, 2014 [facility] [place] [facility] [id number] [place] [address] 88297- 7988 13 Apr, 2014 [facility] [place] [facility] [address], [place] [address]- 7530 13 Apr, 2014 [facility] [id number] [place] [address] 15753- 6156 Feb, [facility] [place] [facility] [address] [id number] [place] [address]- 2812 Jan, [facility] [place] [facility] [address] [id number] [place] [address]- 6999 Jan, [facility] [place] [facility] [address] [id number] [place] [address]- 7563 Dec, [facility] [place] [facility] [address] [id number] [place] [address]- 5908 Dec, [facility] [place] [facility] [address] [id number] [place] [address]- 7181 Oct, [facility] [place] [facility] [address] [id number] [place] [address]- 2860 Oct, [facility] [place] [facility] [address] [id number] [place] [address]- 2357 Oct, [facility] [place] [facility] [address] [id number] [place] [address]- 2121 Oct, [facility] [place] [facility] [address] [id number] [place] [address]- 2139 Sep, [facility] [place] [facility] [address] [id number] [place] [address]- 1935 Sep, [facility] [place] [facility] [address] [id number] [place] [address]- 8448 Sep, [facility] [place] [facility] [address] [id number] [place] [address]- 0297 Sep, [facility] [place] [facility] [address] [id number] [place] [address]- 9334 Aug, [facility] [place] [facility] [address] [id number] [place] 4014 Aug, [facility] [place] [facility] [address] [id number] [place] [address]- 2812 Aug, [facility] [place] [facility] [address] [id number] [place] [address]- 8921 Aug, [facility] [place] [facility] [address] [id number] [place] [address]- 7087 Jul, [facility] [place] [facility] [address] [id number] [place] [address]- 3883 Jul, [facility] [place] [facility] [address] [id number] [place] [address]- 0686 Jul, [facility] [place] [facility] [address] [id number] [place] [address]- 6508 Jul, [facility] [place] [facility] [address] [id number] [place] [address]- 5484 Jul, [facility] [place] [facility] [address] [id number] [place] [address]- 4316 Jul, [facility] [place] [facility] [address] [id number] [place] [address]- 4883 Apr, [facility] [place] [facility] [address] [id number] [place] [address]- 4624 Apr, [facility] [place] [facility] [address] [id number] [place] [address]- 5300 Apr, [facility] [place] [facility] [address] [id number] [place] [address]- 2275 Apr, [facility] [place] [facility] [address] [id number] [place] [address]- 7266 Apr, [facility] [place] [facility] [address] [id number] [place] [address]- 2932 Apr, [facility] [place] [facility] [address] [id number] [place] [address]- 9662 Apr, [facility] [place] [facility] [address] [id number] [place] [address]- 1765 Apr, [facility] [place] [facility] [address] [id number] [place] [address]- 2755 17 Apr, 2013 [facility] [place] [facility] [address] [id number] [place] [address]- 3999 17 Apr, 2012 [facility] [place] [facility] [address] [id number] [place] [address]- 1780 16 Apr, 2013 [facility] [place] [facility] [address] [id number] [place] [address]- 0628 16 Apr, 2012 [facility] [place] [facility] [address] [id number] [place] [address]- 6700 16 Apr, 2012 [facility] [place] [facility] [address] [id number] [place] [address]- 9510 16 Apr, 2013 [facility] [place] [facility] [address] [id number] [place] [address]- 2139 18 Mar, 2013 [facility] [place] [facility] [address] [id number] [place] [address]- 4441 17 Mar, 2013 [facility] [place] [facility] [address] [id number] [place] [address]- 4515 16 Mar, 2013 [facility] [place] [facility] [address] [id number] [place] [address]- 9554 13 Mar, 2013 [facility] [place] [facility] [address] [id number] [place] [address]- 3382 Feb, [facility] [place] [facility] [address] [id number], [place] [address]- 5909 Feb, [facility] [place] [facility] [address] [id number], [place] [address]- 7513 Jan, [facility] [place] [facility] [address] [id number] [place] [address]- 4420 Jan, [facility] [place] [facility] [address] [id number] [place] [address]- 5687 Jan, [facility] [place] [facility] [address] [id number] [place] [address]- 5823 Jan, [facility] [place] [facility] [address] [id number] [place] [address]- 0858 18 Jan, 2013 [facility] [address] [id number] [place] [address]- 9719 Jan, [facility] [place] [facility] [address] [id number] [place] [address]- 5580 05 Jan, 2013 [facility] [place] [facility] [address] [id number] [place] [address]- 8307 Jan, [facility] [place] [facility] [address] [id number] [place] [address]- 0580 Dec, [facility] [place] [facility] [address] [id number] [place] [address]- 3234 Dec, [facility] [place] [facility] [address] [id number] [place] [address]- 8436 Dec, [facility] [place] [facility] [address] [id number] [place] [address]- 8613 Dec, [facility] [place] [facility] [address] [id number] [place] [address]- 9380 Dec, [facility] [place] [facility] [address] [id number] [place] [address]- 9514 Dec, [facility] [place] [facility] [address] [id number] [place] [address]- 2237 Dec, [facility] [place] [facility] [address] [id number] [place] [address]- 1385 Dec, [facility] [place] [facility] [address] [id number] [place] [address]- 3458 Dec, [facility] [place] [facility] [address] [id number] [place] [address]- 5482 November, [facility] [place] [facility] [address] [id number] [place] [address]- 2952 Oct, [facility] [place] [facility] [address] [id number] [place] [address]- 3445 Oct, [facility] [place] [facility] [address] [id number] [place] [address]- 7050 Oct, [facility] [address] [id number] [place] [address]- 2259 Oct, [facility] [address] [id number] [place] [address]- 3796 Oct, [facility] [address] [id number] [place] [address]- 7530 Oct, [facility] [address] [id number] [place] [address]- 9051 Aug, [facility] [address] [id number] [place] [address]- 8987 Aug, [facility] [address] [id number] [place] [address]- 4555 Jul, [facility] [address] [id number] [place] [address]- 1670 Jul, [facility] [address] [id number] [place] [address]- 5839 Jul, [facility] [address] [id number] [place] [address]- 8519 Jul, [facility] [address] [id number] [place] [address]- 2427 Jul, [facility] [address] [id number] [place] [address]- 4387 Jul, [facility] [place] [facility] [address] [id number] [place] [address]- 2888 Jul, [facility] [place] [facility] [address] [id number] [place] [address]- 5369 Jun, [facility] [address] [id number] [place] [address]- 5375 Jun, [facility] [address] [id number] [place] [address]- 1256 Jun, [facility] [place] [facility] [address] [id number] [place] [address]- 5784 Jun, [facility] [place] [facility] [address] [id number] [place] 1263 Jun, [facility] [place] [facility] [address] [id number] [place] [address]- 2123 Apr, [facility] [place] [facility] [address] [id number] [place] [address]- 1227 Apr, [facility] [place] [facility] [address] [id number] [place] 9602 Apr, [facility] [place] [facility] [address] [id number] [place] [address]- 0523 Mar, [facility] [place] [facility] [address] [id number] [place] [address]- 7524 Feb, [facility] [place] [facility] [address] [id number] [place] [address]- 4687 Jan, [facility] [place] [facility] [address] [id number] [place] [address]- 0164 Jan, [facility] [place] [facility] [address] [id number] [place] [address]- 9194 Dec, [facility] [place] [facility] [address] [id number] [place] [address]- 6125 November, [facility] [place] [facility] [address] [id number] [place] [address]- 9782 Oct, [facility] [place] [facility] [address] [id number] [place] [address]- 5889 Sep, [facility] [place] [facility] [address] [id number] [place] 6949 Sep, [facility] [place] [facility] [address] [id number] [place] [address]- 6249 Aug, [facility] [place] [facility] [address], [place] [address]- [address] Aug, [facility] [address], [place] [address]- 9866 Aug, [facility] [address], [place] [address]- 2546 Jul, [facility] [address], [place] [address]- [address] Jul, [facility] [address], [place] [address]- [address] Jun, [facility] [id number] [place] [address]1017- [address] Jun, [facility] [address], [place] [address]- [address] May, [facility] [address], [place] [address]- 4626 Apr, [facility] [id number], [place] [address]- 6698 Apr, IMMUNIZATIONS No Known Immunizations SOCIAL HISTORY Never Assessed REASON FOR VISIT Waiting for call back PLAN OF CARE VITAL SIGNS MEDICATIONS Unknown Medications RESULTS No Results PROCEDURES No Known procedures INSTRUCTIONS MEDICATIONS ADMINISTERED No Known Medications MEDICAL (GENERAL) HISTORY Type Description Date Medical History GERD Surgical History cholecystectomy 2013
--- OUTSIDE RECORDS SUMMARY | 2018-01-30 08:27 | XMS REPORT ---
Author Author FRANK ANTWAN Organization [facility] Address [address] [place] [address] Care Team Providers Care Typewriter Repairer Name Role Phone ROBERTBRANDON ANTWAN Unavailable PROBLEMS Type Condition ICD9-CM Code QXB65-OM Code Onset Dates Condition Status SNOMED Code Problem Major depressive disorder, recurrent episode, moderate 296.32 Active 06646856 Problem Mental retardation F79 Active 14162764 Problem Major depressive disorder, recurrent episode, mild 296.31 Active 85497387 Problem Hyperlipidemia, unspecified hyperlipidemia type E78.5 Active 59666680 Problem Unspecified otalgia 388.70 Active 07300793 Problem Body mass index (BMI) of 40.0-44.9 in adult Z68.41 Active 093600177 Problem Wheezing 786.07 Active 85557397 Problem Encounter for long-term (current) use of other medications V58.69 Active 744451844 Problem Major depression, recurrent F33.9 Active 25729527 Problem Obsessive compulsive disorder F42 Active 692843419 Problem Morbid (severe) obesity due to excess calories E66.01 Active 79749876047819 Problem Major depressive disorder, recurrent episode, in partial remission F33.41 Active 67199540 Problem Moderate mental retardation 318.0 Active 80704048 Problem Mild mental retardation 317 Active 25346584 Problem Acute suppurative otitis media without spontaneous rupture of eardrum 382.00 Active 25625650 Problem Dysfunction of Eustachian tube 381.81 Active 91365579 Problem Generalized anxiety disorder 300.02 Active 15771183 Problem Anxiety state, unspecified 300.00 Active 549745483 Problem Depressive disorder, not elsewhere classified 311 Active 72984297 Problem Unspecified psychosis 298.9 Active 09331357 Problem Obsessive-compulsive disorders 300.3 Active 445928247 Problem Unspecified episodic mood disorder 296.90 Active 494328501 ALLERGIES No Known Allergies ENCOUNTERS Encounter Location Date Diagnosis [facility] [id number] [address] Jan, [facility] [id number] [place] [address]- [address] Dec, Body mass index (BMI) of 40.0-44.9 in adult Z68.41 ; Hyperglycemia R73.9 and Hyperlipidemia, unspecified hyperlipidemia type E78.5 [place] [id number] [place] [address] 81001- 5873 November, Major depressive disorder, recurrent episode, in partial remission F33.41 ; Mental retardation F79 ; Obsessive compulsive disorder F42 and BMI 50.0-59.9, adult Z68.43 [place] [id number] [place] [address] 05623- 3890 Oct, [facility] [id number] [place] [address] -[address]117 Jul, Acute nasopharyngitis J00 and Vomiting, intractability of vomiting not specified, presence of nausea not specified, unspecified vomiting type R11.10 [place] [id number] [place] [address] 28903- 6766 09 Jul, 2017 BMI 45.0-49.9, adult Z68.42 ; Major depressive disorder, recurrent episode, in partial remission F33.41 ; Mental retardation F79 and Obsessive compulsive disorder F42 [place] [id number] [place] [address] 95670- 1404 Jul, High risk medication use Z79.899 [place] [id number] [place] [address] 12470- 0679 Jun, Morbid (severe) obesity due to excess calories E66.01 ; Body mass index (BMI) of 40.0-44.9 in adult Z68.41 ; Mental retardation F79 ; Elevated blood pressure reading R03.0 ; Screening for diabetes mellitus (DM) Z13.1 and Screening for lipid disorders Z13.220 [address] [id number] [place] [address] 61760- 1884 May, High risk medication use Z79.899 ; Major depressive disorder , recurrent episode, in partial remission F33.41 ; Mental retardation F79 and Obsessive compulsive disorder F42 [facility] [address] [address] May, [facility] [address] [address] Apr, [address] [id number] [id number] Mar, [facility] [address] [address] Jan, Major depression, recurrent F33.9 ; Mental retardation F79 and Obsessive compulsive disorder F42 [facility] [address] [address] 287[address] November, Major depression, recurrent F33.9 and Obsessive compulsive disorder F42 [facility] [address] [address]- 0676 Sep, [facility] [address] [address] 45[address] Jun, Obsessive compulsive disorder F42 ; Mental retardation F79 and Major depressive disorder, recurrent episode, in partial remission F33.41 [facility] [address] [address]- 0[address] Apr, [facility] [address] [address] 4817 Apr, Major depression, recurrent F33.9 ; Obsessive compulsive disorder F42 and Mental retardation F79 [facility] [address] [address] 57[address] Jan, [facility] [address] [address]- 4165 Jan, Major depression, recurrent F33.9 ; Obsessive compulsive disorder F42 and Mental retardation F79 [facility] [id number] [place] [address] 79799- 2096 14 Dec, 2015 [facility] [address] [address]- 30[address] November, [facility] [address] [address] 8321 November, [facility] [address] [address]- 5408 Oct, [facility] [id number] [place] [address] 410288- 8273 Oct, Obsessive compulsive disorder F42 ; Major depression, recurrent F33.9 and Mental retardation F79 [facility] [id number] [place] [address] 40916- 3665 Sep, [facility] [address] [address]- 8176 17 Aug, 2015 [facility] [id number] [place] [address] 48093- 9644 Aug, [facility] [address] [address]- 5240 Aug, [facility] [address] [address]- 8231 Jul, [facility] [address] [address] Jul, [facility] [address] [address]- 1148 Jul, [facility] [address] [address]- 0068 Jun, Obsessive compulsive disorder F42 ; Major depression, recurrent F33.9 and Mental retardation F79 [facility] [address] [address]- 3364 Jun, [facility] [address] [address]- 9024 Jun, [facility] [address] [facility] [id number] [address] 1652 17 May, 2015 [facility] [id number] [place] [address] 77354- 0454 15 Apr, 2015 [facility] [address] [address] 30 Mar, 2015 Generalized anxiety disorder 300.02 and Major depressive disorder, recurrent episode, mild 296.31 [facility] [id number] [address]- 3448 14 Mar, 2015 [facility] [id number] [place] [address] 97416- 7577 13 Feb, 2015 [facility] [id number] [address]- [address] 13 Jan, 2015 [facility] [id number] [place] [address] 03708- 6467 10 Dec, 2014 Generalized anxiety disorder 300.02 and Depressive disorder , not elsewhere classified 311 [facility] [address] [address]- 4150 14 Oct, 2014 [facility] [address] [address]- 3059 13 Oct, 2014 [facility] [address] [address]- 1296 11 Sep, 2014 [facility] [address] [address]- 7180 Sep, [facility] [address] [address]- 7666 Jun, [facility] [id number] [address]- 2714 Jun, [facility] [address] [address]- 7728 19 May, 2014 [facility] [address] [place] [address] 44854- 7936 May, [facility] [place] [facility] [address] [id number] [place] [address]- 7020 May, [facility] [place] [facility] [address] [id number] [place] [address]- 6092 Apr, [facility] [place] [facility] [address] [id number] [place] [address]- 0866 Apr, [facility] [place] [facility] [address] [id number] [place] [address]- 5668 Feb, [facility] [place] [facility] [address] [id number] [place] [address]- 9409 Jan, [facility] [place] [facility] [address] [id number] [place] [address]- 5609 Jan, [facility] [place] [facility] [address] [id number] [place] [address]- 1499 Dec, [facility] [place] [facility] [address] [id number] [place] [address]- 4977 Dec, [facility] [place] [facility] [address] [id number] [place] [address]- 2114 Oct, [facility] [place] [facility] [address] [id number] [place] [address]- 6064 Oct, [facility] [place] [facility] [address] [id number] [place] [address]- 5338 Oct, [facility] [place] [facility] [address] [id number] [place] [address]- 1311 Oct, [facility] [place] [facility] [address] [id number] [place] [address]- 1827 Sep, [facility] [place] [facility] [address] [id number] [place] [address]- 3818 Sep, [facility] [place] [facility] [address] [id number] [place] [address]- 5012 Sep, [facility] [place] [facility] [address] [id number] [place] [address]- 3873 Sep, [facility] [place] [facility] [address] [id number] [place] [address]- 5078 Aug, [facility] [place] [facility] [address] [id number] [place] [address]- 7606 Aug, [facility] [place] [facility] [address] [id number] [place] [address]- 7716 Aug, [facility] [place] [facility] [address] [id number] [place] [address]- 5796 Aug, [facility] [place] [facility] [address] [id number] [place] [address]- 9310 Jul, [facility] [place] [facility] [address] [id number] [place] [address]- 5474 Jul, [facility] [place] [facility] [address] [id number] [place] [address]- 6081 Jul, [facility] [place] [facility] [address] [id number] [place] [address]- 7734 Jul, [facility] [place] [facility] [address] [id number] [place] [address]- 9822 Jul, [facility] [place] [facility] [address] [id number] [place] [address]- 4705 Jul, [facility] [place] [facility] [address] [id number] [place] [address]- 1989 Apr, [facility] [place] [facility] [address] [id number] [place] [address]- 1656 Apr, [facility] [place] [facility] [address] [id number] [place] [address]- 5332 Apr, [facility] [place] [facility] [address] [id number] [place] [address]- 9687 Apr, [facility] [place] [facility] [address] [id number] [place] [address]- 9284 21 Apr, 2013 [facility] [place] [facility] [address] [id number] [place] [address]- 2689 21 Apr, 2012 [facility] [place] [facility] [address] [id number] [place] [address]- 2596 18 Apr, 2012 [facility] [place] [facility] [address] [id number] [place] [address]- 8999 18 Apr, 2013 [facility] [place] [facility] [address] [id number] [place] [address]- 0955 17 Apr, 2012 [facility] [place] [facility] [address] [id number] [place] [address]- 2914 17 Apr, 2013 [facility] [place] [facility] [address] [id number] [place] [address]- 3725 16 Apr, 2013 [facility] [place] [facility] [address] [id number] [place] [address]- 0917 16 Apr, 2013 [facility] [place] [facility] [address] [id number] [address]- 7031 16 Apr, 2013 [facility] [place] [facility] [address] [id number] [place] [address]- 2875 16 Apr, 2013 [facility] [place] [facility] [address] [id number] [address]- 5449 18 Mar, 2012 [facility] [place] [facility] [address] [id number] [address]- 6699 17 Mar, 2012 [facility] [place] [facility] [address] [id number] [address]- 6072 16 Mar, 2012 [facility] [place] [facility] [address] [id number] [place] [address]- 2532 13 Mar, 2013 [facility] [place] [facility] [address] [id number] [address]- 4090 Feb, [facility] [place] [facility] [address] [id number] [address]- 8891 Feb, [facility] [place] [facility] [address] [id number] [place] [address]- 9304 Jan, [facility] [address] [id number] [place] [address]- 7100 Jan, [facility] [place] [facility] [address] [id number] [place] [address]- 1407 Jan, [facility] [place] [facility] [address] [id number] [place] [address]- 5358 Jan, [facility] [place] [facility] [address] [id number] [place] [address]- 3211 Jan, [facility] [place] [facility] [address] [id number] [place] [address]- 5799 Jan, [facility] [place] [facility] [address] [id number] [place] [address]- 5813 Jan, [facility] [address] [id number] [place] [address]- 9471 Jan, [facility] [place] [facility] [address] [id number] [place] [address]- 1417 Dec, [facility] [place] [facility] [address] [id number] [place] [address]- 4737 Dec, [facility] [place] [facility] [address] [id number] [place] [address]- 4498 Dec, [facility] [place] [facility] [address] [id number] [place] [address]- 1282 Dec, [facility] [place] [facility] [address] [id number] [place] [address]- 2488 Dec, [facility] [place] [facility] [address] [id number] [place] [address]- 8416 Dec, [facility] [place] [facility] [address] [id number] [place] [address]- 0046 Dec, [facility] [place] [facility] [address] [id number] [place] [address]- 8998 Dec, [facility] [place] [facility] [address] [id number] [place] [address]- 7330 Dec, [facility] [address] [id number] [place] [address]- 0460 November, [facility] [address] [id number] [place] [address]- 1663 Oct, [facility] [address] [id number] [place] [address]- 7161 Oct, [facility] [address] [id number] [place] [address]- 1048 Oct, [facility] [address] [id number] [place] [address]- 0083 Oct, [facility] [address] [id number] [place] [address]- 8935 Oct, [facility] [address] [id number] [place] [address]- 8913 Oct, [facility] [address] [id number] [place] [address]- 4022 Aug, [facility] [address] [id number] [place] [address]- 0547 Aug, [facility] [address] [id number] [place] [address]- 7755 Jul, [facility] [address] [id number] [place] [address]- 3609 Jul, [facility] [place] [facility] [address] [id number] [place] [address]- 0804 Jul, [facility] [place] [facility] [address] [id number] [place] [address]- 1350 Jul, [facility] [place] [facility] [address] [id number] [place] [address]- 7628 Jul, [facility] [place] [facility] [address] [id number] [place] [address]- 4771 Jul, [facility] [place] [facility] [address] [id number] [place] [address]- 6322 Jul, [facility] [place] [facility] [address] [id number] [place] [address]- 9764 Jun, [facility] [place] [facility] [address] [id number] [place] [address]- 4589 Jun, [facility] [place] [facility] [address] [id number] [place] [address]- 9442 Jun, [facility] [place] [facility] [address] [id number] [place] [address]- 4407 Jun, [facility] [place] [facility] [address] [id number] [place] [address]- 1632 Jun, [facility] [place] [facility] [address] [id number] [place] [address]- 3165 Apr, [facility] [place] [facility] [address] [id number] [place] [address]- 2067 Apr, [facility] [place] [facility] [address] [id number] [place] [address]- 2077 Apr, [facility] [place] [facility] [address] [id number] [place] [address]- 9379 Mar, [facility] [place] [facility] [address] [id number] [place] [address]- 4685 Feb, [facility] [place] [facility] [address] [id number] [place] [address]- 7199 Jan, [facility] [place] [facility] [address] [id number] [place] [address]- 8340 Jan, [facility] [place] [facility] [address] [id number] [place] [address]- 3683 Dec, [facility] [place] [facility] [address] [id number] [place] [address] November, [facility] [place] [facility] [address] [address]- 8596 Oct, [facility] [address] [address]- 9529 Sep, [facility] [address] [address]- 2396 Sep, [facility] [address] [address]- 5872 Aug, [facility] [address] [address]- 4213 Aug, [facility] [id number] [place] [address] 11160- 6187 Aug, [facility] [address] [address]- 5724 Jul, [facility] [id number] [place] [address] 87049- 3826 Jul, [facility] [address] [address]- 9863 Jun, [facility] [address] [address]- 6609 Jun, [facility] [address] [address]- 9293 May, [facility] [address] [address]- 9918 Apr, [facility] [id number] [address]- 3018 Apr, IMMUNIZATIONS No Known Immunizations SOCIAL HISTORY Never Assessed REASON FOR VISIT f/u PLAN OF CARE Activity Details Follow Up 4 Months Reason: VITAL SIGNS Height 65 in 2017-07-27 Weight 290.5 lbs 2017-07-27 Heart Rate 84 bpm 2017-07-27 Respiratory Rate 20 2017-07-27 BMI 48.34 kg/m2 2017-07-27 Blood pressure systolic 134 mmHg 2017-07-27 Blood pressure diastolic 80 mmHg 2017-07-27 MEDICATIONS Medication Instructions Dosage Frequency Start Date End Date Duration Status Latuda 60 MG Orally Once a day 1 tablet with food 24h 30 days Active Clonazepam 0.5 MG Orally as needed Twice a day 1 tablet 12h 11 Sep, 2014 30 days Active Omeprazole 20 mg Orally Once a day 1 capsule 24h Apr, 30 day(s ) Active propranolol 20 mg 1 Tablet by Oral route 2 times per day Dec, Active Singulair 10 MG Orally Once a day 1 tablet in the evening 24h Not- Taking Wellbutrin XL 150 MG Orally Once a day 1 tablet in the morning 24h November, 30 days Active RESULTS No Results PROCEDURES Procedure Date Ordered Result Body Site [facility] VISIT ESTABLISHED PATIENT Jul 27, 2017 INSTRUCTIONS MEDICATIONS ADMINISTERED No Known Medications MEDICAL (GENERAL) HISTORY Type Description Date Medical History GERD Surgical History cholecystectomy 2013 Hospitalization History [facility] [place]- Chest Pain 08/26/2017
--- OUTSIDE RECORDS SUMMARY | 2018-01-30 08:29 | XMS REPORT ---
Author Author KEITH HAWKINS 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 Name Role Phone KEITH HAWKINS Unavailable PROBLEMS Type Condition ICD9-CM Code PJJ18-LC Code Onset Dates Condition Status SNOMED Code Problem Major depressive disorder, recurrent episode, moderate 296.32 Active 89177946 Problem Mental retardation F79 Active 59514834 Problem Major depressive disorder, recurrent episode, mild 296.31 Active 70696543 Problem Hyperlipidemia, unspecified hyperlipidemia type E78.5 Active 04942071 Problem Unspecified otalgia 388.70 Active 74778015 Problem Body mass index (BMI) of 40.0-44.9 in adult Z68.41 Active 082069525 Problem Wheezing 786.07 Active 89012109 Problem Encounter for long-term (current) use of other medications V58.69 Active 455696023 Problem Major depression, recurrent F33.9 Active 84651914 Problem Obsessive compulsive disorder F42 Active 903864015 Problem Morbid (severe) obesity due to excess calories E66.01 Active 38262182295156 Problem Major depressive disorder, recurrent episode, in partial remission F33.41 Active 32184699 Problem Moderate mental retardation 318.0 Active 97190207 Problem Mild mental retardation 317 Active 24712269 Problem Acute suppurative otitis media without spontaneous rupture of eardrum 382.00 Active 09306004 Problem Dysfunction of Eustachian tube 381.81 Active 99773272 Problem Generalized anxiety disorder 300.02 Active 74689703 Problem Anxiety state, unspecified 300.00 Active 884053368 Problem Depressive disorder, not elsewhere classified 311 Active 24404075 Problem Unspecified psychosis 298.9 Active 68867001 Problem Obsessive-compulsive disorders 300.3 Active 014994165 Problem Unspecified episodic mood disorder 296.90 Active 803260442 ALLERGIES No Known Allergies ENCOUNTERS Encounter Location Date Diagnosis [facility] [address] [facility] [id number] [place] [address] 100[address] Jan, [facility] [address] [address] Dec, Body mass index (BMI) of 40.0-44.9 in adult Z68.41 ; Hyperglycemia R73.9 and Hyperlipidemia, unspecified hyperlipidemia type E78.5 [place] [address] [address] November, Major depressive disorder, recurrent episode, in partial remission F33.41 ; Mental retardation F79 ; Obsessive compulsive disorder F42 and BMI 50.0-59.9, adult Z68.43 [place] [address] [address] Oct, [facility] [address] [address] Jul, Acute nasopharyngitis J00 and Vomiting, intractability of vomiting not specified, presence of nausea not specified, unspecified vomiting type R11.10 [place] [address] [place] [id number] [place] [address]- [address] 09 Jul, 2017 BMI 45.0-49.9, adult Z68.42 ; Major depressive disorder, recurrent episode, in partial remission F33.41 ; Mental retardation F79 and Obsessive compulsive disorder F42 [place] [address] [place] [id number] [place] [address]- 7548 Jul, High risk medication use Z79.899 [place] [address] [place] [id number] [place] [address]- [address] Jun, Morbid (severe) obesity due to excess calories E66.01 ; Body mass index (BMI) of 40.0-44.9 in adult Z68.41 ; Mental retardation F79 ; Elevated blood pressure reading R03.0 ; Screening for diabetes mellitus (DM) Z13.1 and Screening for lipid disorders Z13.220 [place] [address] [address] May, High risk medication use Z79.899 ; Major depressive disorder , recurrent episode, in partial remission F33.41 ; Mental retardation F79 and Obsessive compulsive disorder F42 [facility] [address] [address] May, [facility] [address] [address] Apr, [facility] [place] [place] [id number] [id number] Mar, [facility] [address] [address] Jan, Major depression, recurrent F33.9 ; Mental retardation F79 and Obsessive compulsive disorder F42 [facility] [address] [address] November, Major depression, recurrent F33.9 and Obsessive compulsive disorder F42 [facility] [address] [address] Sep, [facility] [id number] [place] [address]- 9[address] Jun, Obsessive compulsive disorder F42 ; Mental retardation F79 and Major depressive disorder, recurrent episode, in partial remission F33.41 [facility] [address] [address] Apr, [facility] [address] [address] Apr, Major depression, recurrent F33.9 ; Obsessive compulsive disorder F42 and Mental retardation F79 [facility] [address] [address] 29[address] Jan, [facility] [address] [address] Jan, Major depression, recurrent F33.9 ; Obsessive compulsive disorder F42 and Mental retardation F79 [facility] [id number] [place] [address]- 2244 14 Dec, 2015 [facility] [address] [address] November, [facility] [address] [address] November, [facility] [address], [place] [address] 0[address] Oct, [facility] [address] [place] [id number] [place] [address]- 9619 Oct, Obsessive compulsive disorder F42 ; Major depression, recurrent F33.9 and Mental retardation F79 [facility] [id number] [place] [address]- 36[address] Sep, [facility] [address] [address] 29[address] 17 Aug, 2015 [facility] [id number] [place] [address]- 9784 Aug, [facility] [address], [place] [address] Aug, [facility] [address], [place] [address] Jul, [facility] [address] [address] 92[address] Jul, [facility] [address] [address] 6[address] Jul, [facility] [address] [place] [id number] [address] Jun, Obsessive compulsive disorder F42 ; Major depression, recurrent F33.9 and Mental retardation F79 [facility] [address], [place] [address] 8[address] Jun, [facility] [address] [address]- 8[address] Jun, [facility] [address] [facility] [id number] [address] 17 May, 2015 [facility] [address] [facility] [id number] [address] 15 Apr, 2015 [facility] [address] [place] [id number] [address] 30 Mar, 2015 Generalized anxiety disorder 300.02 and Major depressive disorder, recurrent episode, mild 296.31 [facility] [address] [facility] [id number] [place] [address]- 7847 14 Mar, 2015 [facility] [id number] [place] [address] 10008- 3491 13 Feb, 2015 [facility] [address] [place] [id number] [address]- 8[address] Jan, [facility] [address] [place] [address]646- 6449 10 Dec, 2014 Generalized anxiety disorder 300.02 and Depressive disorder , not elsewhere classified 311 [facility] [address] [place] [id number] [place] [address] 7145 14 Oct, 2014 [facility] [address] [place] [id number] [address]- 8444 13 Oct, 2014 [facility] [address] [place] [id number] [address]- 3[address] Sep, [facility] [address] [place] [id number] [address]- 4160 Sep, [facility] [address] [place] [id number] [place] [address]- 3374 Jun, [facility] [address] [place] [id number] [address] Jun, [facility] [address] [id number] [address] May, [facility] [id number] [place] [address] [place] [address]- 6228 May, [facility] [place] [facility] [address] [id number] [place] [address]- 5528 May, [facility] [place] [facility] [address] [id number] [place] [address]- 3284 Apr, [facility] [place] [facility] [address] [id number] [place] [address]- 3908 Apr, [facility] [place] [facility] [address] [id number] [place] [address]- 6102 Feb, [facility] [place] [facility] [address] [id number] [place] [address]- 4984 Jan, [facility] [place] [facility] [address] [id number] [place] [address]- 3542 Jan, [facility] [place] [facility] [address] [id number] [place] [address]- 3335 Dec, [facility] [place] [facility] [address] [id number] [place] [address]- 2008 Dec, [facility] [place] [facility] [address] [id number] [place] [address]- 5040 Oct, [facility] [place] [facility] [address] [id number] [place] [address]- 2277 Oct, [facility] [place] [facility] [address] [id number] [place] [address]- 0821 Oct, [facility] [place] [facility] [address] [id number] [place] [address]- 5303 Oct, [facility] [place] [facility] [address] [id number] [place] [address]- 7951 Sep, [facility] [place] [facility] [address] [id number] [place] [address]- 6884 Sep, [facility] [place] [facility] [address] [id number] [place] [address]- 1433 Sep, [facility] [place] [facility] [address] [id number] [place] [address]- 2774 Sep, [facility] [place] [facility] [address] [id number] [place] [address]- 6091 Aug, [facility] [place] [facility] [address] [id number] [place] [address]- 5976 Aug, [facility] [place] [facility] [address] [id number] [place] [address]- 7489 Aug, [facility] [place] [facility] [address] [id number] [place] [address]- 7227 Aug, [facility] [place] [facility] [address] [id number] [place] [address]- 4673 Jul, [facility] [place] [facility] [address] [id number] [place] [address]- 7398 Jul, [facility] [place] [facility] [address] [id number] [place] [address]- 4604 Jul, [facility] [place] [facility] [address] [id number] [place] [address]- 8574 Jul, [facility] [place] [facility] [address] [id number] [place] [address]- 7278 Jul, [facility] [place] [facility] [address] [id number] [place] [address]- 3476 Jul, [facility] [place] [facility] [address] [id number] [address]- 3581 Apr, [facility] [place] [facility] [address] [id number] [place] [address]- 8916 Apr, [facility] [place] [facility] [address] [id number] [place] [address]- 9790 Apr, [facility] [place] [facility] [address] [id number] [place] [address]- 2503 Apr, [facility] [place] [facility] [address] [id number] [place] [address]- 0715 21 Apr, 2012 [facility] [place] [facility] [address] [id number] [place] [address]- 6355 21 Apr, 2012 [facility] [place] [facility] [address] [id number] [place] [address]- 1475 18 Apr, 2012 [facility] [place] [facility] [address] [id number] [place] [address]- 1679 18 Apr, 2012 [facility] [place] [facility] [address] [id number] [place] [address]- 6158 17 Apr, 2012 [facility] [place] [facility] [address] [id number] [place] [address]- 3189 17 Apr, 2012 [facility] [place] [facility] [address] [id number] [place] [address]- 8229 16 Apr, 2013 [facility] [place] [facility] [address] [id number] [place] [address]- 7748 16 Apr, 2013 [facility] [place] [facility] [address] [id number] [place] [address]- 7045 16 Apr, 2013 [facility] [place] [facility] [address] [id number] [place] [address]- 6862 16 Apr, 2013 [facility] [place] [facility] [address] [id number] [place] [address]- 3175 18 Mar, 2012 [facility] [place] [facility] [address] [id number], [place] [address]- 5164 17 Mar, 2012 [facility] [place] [facility] [address] [id number], [place] [address]- 2406 16 Mar, 2012 [facility] [place] [facility] [address] [id number] [place] [address]- 9910 13 Mar, 2012 [facility] [place] [facility] [address] [id number] [place] [address]- 2971 Feb, [facility] [place] [facility] [address] [id number] [place] [address]- 8430 Feb, [facility] [place] [facility] [address] [id number] [place] [address]- 8249 Jan, [facility] [address] [id number] [place] [address]- 8543 Jan, [facility] [place] [facility] [address] [id number] [place] [address]- 9871 Jan, [facility] [address] [id number] [place] [address]- 6177 Jan, [facility] [address] [id number] [place] [address]- 8472 Jan, [facility] [address] [id number] [place] [address]- 4414 Jan, [facility] [address] [id number] [place] [address]- 4018 Jan, [facility] [address] [id number] [place] [address]- 9969 Jan, [facility] [address] [id number] [place] [address]- 6235 Dec, [facility] [place] [facility] [address] [id number] [place] [address]- 4938 Dec, [facility] [address] [id number] [place] [address]- 3770 Dec, [facility] [place] [facility] [address] [id number] [place] [address]- 3108 Dec, [facility] [address] [id number] [place] [address]- 1437 Dec, [facility] [place] [facility] [address] [id number] [place] [address]- 6354 Dec, [facility] [place] [facility] [address] [id number] [place] [address]- 2307 Dec, [facility] [place] [facility] [address] [id number] [place] [address]- 0929 Dec, [facility] [address] [id number] [place] [address]- 0866 Dec, [facility] [address] [id number] [place] [address]- 2687 November, [facility] [address] [id number] [place] [address]- 7694 Oct, [facility] [place] [facility] [address] [id number] [place] [address]- 4733 Oct, [facility] [address] [id number] [place] [address]- 9696 Oct, [facility] [address] [id number] [place] [address]- 1266 Oct, [facility] [address] [id number] [place] [address]- 5704 Oct, [facility] [address] [id number] [place] [address]- 8541 Oct, [facility] [address] [id number] [place] [address]- 7691 Aug, [facility] [address] [id number] [place] [address]- 4515 Aug, [facility] [address] [id number] [place] [address]- 8031 Jul, [facility] [place] [facility] [address] [id number] [place] [address]- 2978 Jul, [facility] [place] [facility] [address] [id number] [place] [address]- 0662 Jul, [facility] [place] [facility] [address] [id number] [place] [address]- 7254 Jul, [facility] [place] [facility] [address] [id number] [place] [address]- 2907 Jul, [facility] [place] [facility] [address] [id number] [place] [address]- 5063 Jul, [facility] [address] [id number] [place] [address]- 7621 Jul, [facility] [place] [facility] [address] [id number] [place] 7657 Jun, [facility] [place] [facility] [address] [id number] [place] [address]- 9316 Jun, [facility] [place] [facility] [address] [id number] [place] [address]- 7217 Jun, [facility] [place] [facility] [address] [id number] [place]17 Jun, [facility] [place] [facility] [address] [id number] [place] [address]- 2043 Jun, [facility] [address] [id number] [place] [address]- 2771 Apr, [facility] [place] [facility] [address] [id number] [place] [address]- 7615 Apr, [facility] [place] [facility] [address] [id number] [place] [address]- 0990 Apr, [facility] [place] [facility] [address] [id number] [place] [address]- 3048 Mar, [facility] [place] [facility] [address] [id number] [place] [address]- 5365 Feb, [facility] [place] [facility] [address] [id number] [place] [address]- 6762 Jan, [facility] [place] [facility] [address] [id number] [place] [address]- 7327 Jan, [facility] [place] [facility] [address] [id number] [place] [address]- 8271 Dec, [facility] [place] [facility] [address] [id number] [place] [address]- 7211 November, [facility] [address] [address]- 0876 Oct, [facility] [address] [address]- 3126 Sep, [facility] [address] [address]- 2546 Sep, [facility] [address] [address]- 2666 Aug, [facility] [address] [address]- 7946 Aug, [facility] [address] [address]- 2546 Aug, [facility] [address] [address]- 8726 Jul, [facility] [address] [address]- 4796 Jul, [facility] [address] [address]- 0036 Jun, [facility] [address] [address]- 6116 Jun, [facility] [id number] [address] 2546 May, [facility] [id number] [address]- 2686 Apr, [facility] [id number] [address]- 3116 Apr, IMMUNIZATIONS No Known Immunizations SOCIAL HISTORY Never Assessed REASON FOR VISIT Cough, vomiting started about 1 week ago JStrasserRImer PLAN OF CARE Activity Details Follow Up prn Reason: VITAL SIGNS Height 65 in 2017-08-01 Weight 293.4 lbs 2017-08-01 Temperature 98.0 degrees Fahrenheit 2017-08-01 Heart Rate 80 bpm 2017-08-01 Respiratory Rate 22 2017-08-01 BMI 48.82 kg/m2 2017-08-01 Blood pressure systolic 130 mmHg 2017-08-01 Blood pressure diastolic 80 mmHg 2017-08-01 MEDICATIONS Medication Instructions Dosage Frequency Start Date End Date Duration Status propranolol 20 mg 1 Tablet by Oral route 2 times per day Dec, Active Zofran ODT 4 MG Orally every 8 hrs 1 tablet on the tongue and allow to dissolve 8h Jul, 10 days Active Guaifenesin 400 MG Orally every 4 hrs 1 tablet as needed 4h Jul, Jul, 10 days Active Latuda 60 MG Orally Once a day 1 tablet with food 24h 30 days Active Omeprazole 20 mg Orally Once a day 1 capsule 24h Apr, 30 day(s ) Active Singulair 10 MG Orally Once a day 1 tablet in the evening 24h Not- Taking Wellbutrin XL 150 MG Orally Once a day 1 tablet in the morning 24h November, 30 days Active Clonazepam 0.5 MG Orally as needed Twice a day 1 tablet 12h 11 Sep, 2014 30 days Active RESULTS No Results PROCEDURES Procedure Date Ordered Result Body Site [facility] VISIT ESTABLISHED PATIENT Aug 01, 2017 INSTRUCTIONS MEDICATIONS ADMINISTERED No Known Medications MEDICAL (GENERAL) HISTORY Type Description Date Medical History GERD Surgical History cholecystectomy 2013 Hospitalization History [facility]- Chest Pain 08/26/2017
--- OUTSIDE RECORDS SUMMARY | 2018-01-30 08:29 | XMS REPORT ---
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 Name Role Phone ROBERTBRANDON ANTWAN Unavailable PROBLEMS Type Condition ICD9-CM Code [id number] Code Onset Dates Condition Status SNOMED Code Problem Unspecified episodic mood disorder 296.90 Active 475863607 Problem Major depressive disorder, recurrent episode, mild 296.31 Active 01957148 Problem Major depressive disorder, recurrent episode, moderate 296.32 Active 53774815 Problem Morbid (severe) obesity due to excess calories E66.01 Active 93511071074627 Problem Wheezing 786.07 Active 13711927 Problem Body mass index (BMI) of 40.0-44.9 in adult Z68.41 Active 480882081 Problem Encounter for long-term (current) use of other medications V58.69 Active 908065360 Problem Obsessive compulsive disorder F42 Active 357728440 Problem Mental retardation F79 Active 43488205 Problem Major depressive disorder, recurrent episode, in partial remission F33.41 Active 27506934 Problem Major depression, recurrent F33.9 Active 48901479 Problem Dysfunction of Eustachian tube 381.81 Active 19997348 Problem Moderate mental retardation 318.0 Active 38918731 Problem Unspecified otalgia 388.70 Active 31371439 Problem Acute suppurative otitis media without spontaneous rupture of eardrum 382.00 Active 96853815 Problem Obsessive-compulsive disorders 300.3 Active 677068877 Problem Generalized anxiety disorder 300.02 Active 30929747 Problem Mild mental retardation 317 Active 65378785 Problem Anxiety state, unspecified 300.00 Active 727826899 Problem Depressive disorder, not elsewhere classified 311 Active 74041180 Problem Unspecified psychosis 298.9 Active [id number] ALLERGIES No Information ENCOUNTERS Encounter Location Date Diagnosis [facility] [address] [facility] [id number] [address] Jan, [facility] [id number] [place] [address] 28160- 2086 Dec, [place] [id number] [place] [address] 02894- 4470 November, Major depressive disorder, recurrent episode, in partial remission F33.41 ; Mental retardation F79 ; Obsessive compulsive disorder F42 and BMI 50.0-59.9, adult Z68.43 [place] [id number] [place] [address] 91385- 7530 Oct, [facility] [id number] [place] [address]85 -2361 Jul, Acute nasopharyngitis J00 and Vomiting, intractability of vomiting not specified, presence of nausea not specified, unspecified vomiting type R11.10 [place] [id number] [place] [address] 02163- 5388 Jul, BMI 45.0-49.9, adult Z68.42 ; Major depressive disorder, recurrent episode, in partial remission F33.41 ; Mental retardation F79 and Obsessive compulsive disorder F42 [place] [id number] [place] [address] 34270- 7754 Jul, High risk medication use Z79.899 [place] [id number] [place] [address] 87278- 8547 Jun, Morbid (severe) obesity due to excess calories E66.01 ; Body mass index (BMI) of 40.0-44.9 in adult Z68.41 ; Mental retardation F79 ; Elevated blood pressure reading R03.0 ; Screening for diabetes mellitus (DM) Z13.1 and Screening for lipid disorders Z13.220 [place] [id number] [place] [address] 29382- 3093 May, High risk medication use Z79.899 ; Major depressive disorder , recurrent episode, in partial remission F33.41 ; Mental retardation F79 and Obsessive compulsive disorder F42 [place] [id number] [place] [address] 99965- 8379 May, [facility] [address] [id number] [address] Apr, [facility] S[facility] [id number] [id number] Mar, [facility] [address] [id number] [address] Jan, Major depression, recurrent F33.9 ; Mental retardation F79 and Obsessive compulsive disorder F42 [facility] [address] [id number] [address] November, Major depression, recurrent F33.9 and Obsessive compulsive disorder F42 [facility] [address] [address] 20[address] Sep, [facility] [address] [address] 4724 Jun, Obsessive compulsive disorder F42 ; Mental retardation F79 and Major depressive disorder, recurrent episode, in partial remission F33.41 [facility] [address] [address] 12[address] Apr, [facility] [address] [address] 65[address] Apr, Major depression, recurrent F33.9 ; Obsessive compulsive disorder F42 and Mental retardation F79 [facility] [address] [address] 3640 Jan, [facility] [address] [id number] [address] 0726 Jan, Major depression, recurrent F33.9 ; Obsessive compulsive disorder F42 and Mental retardation F79 [facility] [address] [id number] [address] 4502 Dec, [facility] [address] [id number] [address] 4672 November, [facility] [address] [id number] [address] 6280 November, [facility] [address], [place] [address] 1817 Oct, [facility] [address] [address] 5647 Oct, Obsessive compulsive disorder F42 ; Major depression, recurrent F33.9 and Mental retardation F79 [facility] [address], [place] [address] 1503 Sep, [facility] [address] [place] [address] 8861 Aug, [facility] [address] [place] [address] 09005- 2343 Aug, [facility] [address], [place] [address] 6522 Aug, [facility] [address], [place] [address]- 4095 Jul, [facility] [address], [place] [address]- 2106 Jul, [facility] [address], [place] [address]- 8042 Jul, [facility] [address], [place] [address]- 9786 Jun, Obsessive compulsive disorder F42 ; Major depression, recurrent F33.9 and Mental retardation F79 [facility] [id number], [place] [address]- 2932 Jun, [facility] [address] [id number], [place] [address]- 2546 Jun, [facility] [id number], [place] [address]- 6257 May, [facility] [address], [place] [address]- 6933 15 Apr, 2015 [facility] [address] [facility] [id number] [address] 30 Mar, 2015 Generalized anxiety disorder 300.02 and Major depressive disorder, recurrent episode, mild 296.31 [facility] [address] [address]80 14 Mar, 2015 [facility] [address] [id number], [place] [address]- 4672 13 Feb, 2015 [facility] [address] [id number], [place] [address]- 5464 13 Jan, 2015 [facility] [id number] [place] [address] 483347- 2736 10 Dec, 2014 Generalized anxiety disorder 300.02 and Depressive disorder , not elsewhere classified 311 [facility] [address], [place] [address]- 0368 14 Oct, 2014 [facility] [address], [place] [address]- 8181 13 Oct, 2014 [facility] [address], [place] [address]- 6934 11 Sep, 2014 [facility] [address], [place] [address]- 2848 11 Sep, 2014 [facility] [address], [place] [address]- 1749 12 Jun, 2014 [facility] [address], [place] [address]- 3155 Jun, [facility] [address], [place] [address]- 1993 May, [facility] [address] [address] May, [facility] [id number], [place] [address]- 9343 May, [facility] [address] [id number] [address]- 6070 Apr, [facility] [place] [facility] [address] [id number] [place] [address]- 4997 Apr, [facility] [place] [facility] [address] [id number] [place] [address]- 5722 Feb, [facility] [place] [facility] [address] [id number] [place] [address]- 7858 Jan, [facility] [place] [facility] [address] [id number] [place] [address]- 2348 Jan, [facility] [place] [facility] [address] [id number] [place] [address]- 9049 Dec, [facility] [place] [facility] [address] [id number] [place] [address]- 1860 Dec, [facility] [place] [facility] [address] [id number] [place] [address]- 6728 Oct, [facility] [place] [facility] [address] [id number] [place] [address]- 5214 Oct, [facility] [place] [facility] [address] [id number] [place] [address]- 2560 Oct, [facility] [place] [facility] [address] [id number] [place] [address]- 9987 Oct, [facility] [place] [facility] [address] [id number] [place] [address]- 7864 Sep, [facility] [place] [facility] [address] [id number] [place] [address]- 2686 Sep, [facility] [place] [facility] [address] [id number] [place] [address]- 4399 Sep, [facility] [place] [facility] [address] [id number] [place] 0722 Sep, [facility] [place] [facility] [address] [id number] [place] [address]- 0848 Aug, [facility] [place] [facility] [address] [id number] [place] [address]- 7651 Aug, [facility] [place] [facility] [address] [id number] [place] [address]- 4040 Aug, [facility] [place] [facility] [address] [id number] [place] [address]- 4597 Aug, [facility] [place] [facility] [address] [id number] [place] [address]- 6928 Jul, [facility] [place] [facility] [address] [id number] [place] [address]- 5148 Jul, [facility] [place] [facility] [address] [id number] [place] [address]- 3028 Jul, [facility] [place] [facility] [address] [id number] [place] [address]- 1877 Jul, [facility] [place] [facility] [address] [id number] [place] [address]- 0892 Jul, [facility] [place] [facility] [address] [id number] [place] [address]- 9329 Jul, [facility] [place] [facility] [address] [id number] [place] [address]- 8584 Apr, [facility] [place] [facility] [address] [id number] [place] [address]- 9684 Apr, [facility] [place] [facility] [address] [id number], [place] [address]- 9390 Apr, [facility] [place] [facility] [address] [id number] [place] [address]- 6123 Apr, [facility] [place] [facility] [address] [id number] [place] [address]- 6433 Apr, [facility] [place] [facility] [address] [id number] [place] [address]- 6810 Apr, [facility] [place] [facility] [address] [id number] [place] [address]- 5423 18 Apr, 2012 [facility] [place] [facility] [address] [id number] [place] [address]- 3140 18 Apr, 2012 [facility] [place] [facility] [address] [id number] [place] 0630 17 Apr, 2012 [facility] [place] [facility] [address] [id number] [place] [address]- 1304 17 Apr, 2012 [facility] [place] [facility] [address] [id number] [place] [address]- 1818 16 Apr, 2012 [facility] [place] [facility] [address] [id number] [place] [address]82 16 Apr, 2012 [facility] [place] [facility] [address] [id number] [place] [address]- 0286 16 Apr, 2012 [facility] [place] [facility] [address] [id number] [place] [address]- 6654 16 Apr, 2012 [facility] [place] [facility] [address] [id number] [place] [address]- 6841 18 Mar, 2012 [facility] [place] [facility] [address] [id number] [place] [address]- 8685 17 Mar, 2012 [facility] [place] [facility] [address] [id number] [place] [address]- 5635 16 Mar, 2012 [facility] [place] [facility] [address] [id number] [place] [address]- 8232 13 Mar, 2012 [facility] [place] [facility] [address] [id number], [place] [address]- 5952 Feb, [facility] [place] [facility] [address] [id number] [place] [address]- 8156 Feb, [facility] [place] [facility] [address] [id number] [place] [address]- 7555 Jan, [facility] [place] [facility] [address] [id number] [place] [address]- 0584 Jan, [facility] [place] [facility] [address] [id number] [place] [address]- 5226 Jan, [facility] [place] [facility] [address] [id number] [place] [address]- 5672 Jan, [facility] [place] [facility] [address] [id number] [place] [address]- 2544 Jan, [facility] [place] [facility] [address] [id number] [place] [address]- 4837 Jan, [facility] [place] [facility] [address] [id number] [place] [address] 2545 Jan, [facility] [place] [facility] [address] [id number] [place] [address]- 1234 Jan, [facility] [place] [facility] [address] [id number] [place] [address]- 0815 Dec, [facility] [place] [facility] [address] [id number] [place] [address]- 7446 Dec, [facility] [place] [facility] [address] [id number] [place] [address]- 3812 Dec, [facility] [place] [facility] [address] [id number] [place] [address]- 3224 Dec, [facility] [place] [facility] [address] [id number] [place] [address]- 2886 Dec, [facility] [place] [facility] [address] [id number] [place] [address]- 9265 Dec, [facility] [place] [facility] [address] [id number] [place] [address]- 8672 Dec, [facility] [place] [facility] [address] [id number] [place] [address]- 4331 Dec, [facility] [place] [facility] [address] [id number] [place] [address]- 3664 17 Dec, 2012 [facility] [place] [facility] [address] [id number] [place] [address]- 8894 November, [facility] [address] [id number] [place] [address]- 8064 Oct, [facility] [address] [id number] [place] [address]- 8315 Oct, [facility] [address] [id number] [place] [address]- 8671 Oct, [facility] [address] [id number] [place] [address]- 9735 Oct, [facility] [address] [id number] [place] [address]- 2680 Oct, [facility] [address] [id number] [place] [address]- 4505 Oct, [facility] [address] [id number] [place] [address]- 4528 Aug, [facility] [place] [facility] [address] [id number] [place] [address]- 4140 Aug, [facility] [address] [id number] [place] [address]- 3888 Jul, [facility] [place] [facility] [address] [id number] [place] [address]- 8782 Jul, [facility] [address] [id number] [place] [address]- 9204 Jul, [facility] [place] [facility] [address] [id number] [place] [address]- 3596 Jul, [facility] [place] [facility] [address] [id number] [place] [address]- 6091 Jul, [facility] [place] [facility] [address] [id number] [place] [address]- 2164 Jul, [facility] [place] [facility] [address] [id number] [place] [address]- 6931 Jul, [facility] [place] [facility] [address] [id number] [place] [address]- 2429 Jun, [facility] [address] [id number] [place] [address]- 2064 Jun, [facility] [place] [facility] [address] [id number] [place] [address]- 2846 Jun, [facility] [address] [id number] [place] [address]185 Jun, [facility] [place] [facility] [address] [id number] [place] [address]- 5555 Jun, [facility] [address] [id number] [place] [address] Apr, [facility] [address] [id number] [place] [address]- 8779 Apr, [facility] [address] [facility] [id number] [place] [address]- 4590 Apr, [facility] [address] [id number] [place] [address]- 1070 Mar, [facility] [place] [facility] [address] [facility] [id number] [place] [address]- 2102 Feb, [facility] [address] [facility] [id number] [place] [address]- 5543 Jan, [facility] [place] [facility] [address] [id number] [place] [address]- 4970 Jan, [facility] [address] [id number] [place] [address]- 8296 Dec, [facility] [place] [facility] [address] [id number] [place] [address]- 4823 November, [facility] [place] [facility] [address] [facility] [id number] [place] [address]- 5649 Oct, [facility] [place] [facility] [address] [id number] [place] [address]- 4741 Sep, [facility] [id number], [place] [address]- 9289 Sep, [facility] [address], [place] [address]- 2336 Aug, [facility] [address], [place] [address]- 7686 Aug, [facility] [id number] [place] [address] 24215- 6676 Aug, [facility] [address], [place] [address]- 5312 Jul, [facility] [address] [place] [address] 28552- 3726 Jul, [facility] [address], [place] [address]- 7976 Jun, [facility] [address], [place] [address]- 7196 Jun, [facility] [address], [place] [address]- 6596 May, [facility] [address], [place] [address]- 8856 Apr, [facility] [id number], [place] [address]- 6422 Apr, IMMUNIZATIONS No Known Immunizations SOCIAL HISTORY Never Assessed REASON FOR VISIT med refill PLAN OF CARE VITAL SIGNS MEDICATIONS Medication Instructions Dosage Frequency Start Date End Date Duration Status Latuda 60 mg Orally Once a day 1 tablet with food 24h 30 days Active RESULTS No Results PROCEDURES No Known procedures INSTRUCTIONS MEDICATIONS ADMINISTERED No Known Medications MEDICAL (GENERAL) HISTORY Type Description Date Medical History GERD Surgical History cholecystectomy 2013
--- OUTSIDE RECORDS SUMMARY | 2018-01-30 08:32 | XMS REPORT ---
Author Author ANTWAN MARIE [facility] Address [address] [place] [address] Care Team Providers Care Riding Double Name Role Phone ROBERTBRANDON ANTWAN Unavailable PROBLEMS Type Condition ICD9-CM Code EKU84-SP Code Onset Dates Condition Status SNOMED Code Problem Unspecified episodic mood disorder 296.90 Active 692909859 Problem Major depressive disorder, recurrent episode, mild 296.31 Active 46358682 Problem Major depressive disorder, recurrent episode, moderate 296.32 Active 88981615 Problem Morbid (severe) obesity due to excess calories E66.01 Active 44594755729459 Problem Wheezing 786.07 Active 71141369 Problem Body mass index (BMI) of 40.0-44.9 in adult Z68.41 Active 445952800 Problem Encounter for long-term (current) use of other medications V58.69 Active 878794304 Problem Obsessive compulsive disorder F42 Active 693168669 Problem Mental retardation F79 Active 57649713 Problem Major depressive disorder, recurrent episode, in partial remission F33.41 Active 25681711 Problem Major depression, recurrent F33.9 Active 01376533 Problem Dysfunction of Eustachian tube 381.81 Active 19457840 Problem Moderate mental retardation 318.0 Active 80028453 Problem Unspecified otalgia 388.70 Active 94953380 Problem Acute suppurative otitis media without spontaneous rupture of eardrum 382.00 Active 20460275 Problem Obsessive-compulsive disorders 300.3 Active 658772022 Problem Generalized anxiety disorder 300.02 Active 73456493 Problem Mild mental retardation 317 Active 62871082 Problem Anxiety state, unspecified 300.00 Active 076581439 Problem Depressive disorder, not elsewhere classified 311 Active 10086504 Problem Unspecified psychosis 298.9 Active 66168630 ALLERGIES No Known Allergies ENCOUNTERS Encounter Location Date Diagnosis [facility] [address] [facility] [id number] [address] Jan, [facility] [id number] [place] [address]36- 65[address] Dec, [place] [id number] [place] [address] 71513- 3507 November, Major depressive disorder, recurrent episode, in partial remission F33.41 ; Mental retardation F79 ; Obsessive compulsive disorder F42 and BMI 50.0-59.9, adult Z68.43 [place] [id number] [place] [address] 81163- 5549 Oct, [facility] [id number] [place] [address]1104 -0766 Jul, Acute nasopharyngitis J00 and Vomiting, intractability of vomiting not specified, presence of nausea not specified, unspecified vomiting type R11.10 [place] [id number] [place] [address] 49947- 6118 Jul, BMI 45.0-49.9, adult Z68.42 ; Major depressive disorder, recurrent episode, in partial remission F33.41 ; Mental retardation F79 and Obsessive compulsive disorder F42 [place] [id number] [place] [address] 01220- 4463 Jul, High risk medication use Z79.899 [place] [id number] [place] [address] 53543- 5028 Jun, Morbid (severe) obesity due to excess calories E66.01 ; Body mass index (BMI) of 40.0-44.9 in adult Z68.41 ; Mental retardation F79 ; Elevated blood pressure reading R03.0 ; Screening for diabetes mellitus (DM) Z13.1 and Screening for lipid disorders Z13.220 [place] [id number] [place] [address] 09451- 4586 May, High risk medication use Z79.899 ; Major depressive disorder , recurrent episode, in partial remission F33.41 ; Mental retardation F79 and Obsessive compulsive disorder F42 [place] [id number] [place] [address] 33408- 0748 May, [facility] [address] [id number] [address] Apr, [facility] S[facility] [id number] [id number] Mar, [facility] [address] [id number] [address] Jan, Major depression, recurrent F33.9 ; Mental retardation F79 and Obsessive compulsive disorder F42 [facility] [address] [id number] [address] November, Major depression, recurrent F33.9 and Obsessive compulsive disorder F42 [facility] [address] [id number] [address] 69[address] Sep, [facility] [address] [address] 1558 Jun, Obsessive compulsive disorder F42 ; Mental retardation F79 and Major depressive disorder, recurrent episode, in partial remission F33.41 [facility] [address] [address] 3868 Apr, [facility] [address] [address] 5[address] Apr, Major depression, recurrent F33.9 ; Obsessive compulsive disorder F42 and Mental retardation F79 [facility] [address] [address] 8[address] Jan, [facility] [id number] [address] 7392 Jan, Major depression, recurrent F33.9 ; Obsessive compulsive disorder F42 and Mental retardation F79 [facility] [id number] [address] 9260 Dec, [facility] [id number] [address] 2023 November, [facility] [address] [address] 8839 November, [facility] [address] [address] 6828 Oct, [facility] [address] [address] 5604 Oct, Obsessive compulsive disorder F42 ; Major depression, recurrent F33.9 and Mental retardation F79 [facility] [address] [address] 1108 Sep, [facility] [id number] [place] [address]- 8[address] Aug, [facility] [address] [address] 3797 Aug, [facility] [address] [address] 6[address] Aug, [facility] [address] [address]- 6652 Jul, [facility] [address], [place] [address]- 1040 Jul, [facility] [address] [address]- 1648 Jul, [facility] [address] [address]- 55[address] Jun, Obsessive compulsive disorder F42 ; Major depression, recurrent F33.9 and Mental retardation F79 [facility] [id number] [place] [address] 5025 Jun, [facility] [id number] [place] [address]- 3329 Jun, [facility] [id number], [place] [address]- 0909 May, [facility] [address], [place] [address]- 2186 15 Apr, 2015 [facility] [address] [facility] [id number] [address] 30 Mar, 2015 Generalized anxiety disorder 300.02 and Major depressive disorder, recurrent episode, mild 296.31 [facility] [address] [facility] [id number] [address] 14 Mar, 2015 [facility] [id number] [address] 13 Feb, 2015 [facility] [address] [facility] [id number] [address]- 7790 13 Jan, 2015 [facility] [id number] [place] [address] 785768- 4382 10 Dec, 2014 Generalized anxiety disorder 300.02 and Depressive disorder , not elsewhere classified 311 [facility] [address], [place] [address]- 3823 14 Oct, 2014 [facility] [id number] [address]- 5444 13 Oct, 2014 [facility] [id number] [address]- 9677 11 Sep, 2014 [facility] [id number] [address]- 1594 Sep, [facility] [id number], [place] [address]- 3593 12 Jun, 2014 [facility] [id number] [address]- 0628 Jun, [facility] [id number] 9848 May, [facility] [address] 9[address] May, [facility] [id number] 3[address] May, [facility] [id number] [place] [address]- 0578 Apr, [facility] [address] [id number] [place] [address]- 9564 Apr, [facility] [place] [facility] [address] [id number] [place] [address]- 7001 Feb, [facility] [place] [facility] [address] [id number] [place] [address]- 5067 Jan, [facility] [place] [facility] [address] [id number] [place] [address]- 4681 Jan, [facility] [place] [facility] [address] [id number] [place] [address]- 0367 Dec, [facility] [place] [facility] [address] [id number] [place] [address]- 8249 Dec, [facility] [place] [facility] [address] [id number] [place] [address]- 5742 Oct, [facility] [place] [facility] [address] [id number] [place] [address]- 8885 Oct, [facility] [place] [facility] [address] [id number] [place] [address]- 8661 Oct, [facility] [place] [facility] [address] [id number] [place] [address]- 8240 Oct, [facility] [place] [facility] [address] [id number] [place] [address]- 5121 Sep, [facility] [place] [facility] [address] [id number] [place] [address]- 7170 Sep, [facility] [place] [facility] [address] [id number] [place] [address]- 3372 Sep, [facility] [place] [facility] [address] [id number] [place] [address]- 7316 Sep, [facility] [place] [facility] [address] [id number] [place] [address]- 2682 Aug, [facility] [address] [id number] [place] [address]- 7258 Aug, [facility] [place] [facility] [address] [id number] [place] [address]- 4281 Aug, [facility] [place] [facility] [address] [id number] [place] [address]- 3730 Aug, [facility] [place] [facility] [address] [id number] [place] [address]- 9844 Jul, [facility] [place] [facility] [address] [id number] [place] [address]- 5339 Jul, [facility] [place] [facility] [address] [id number] [place] [address]- 0775 Jul, [facility] [place] [facility] [address] [id number] [place] [address]- 5860 Jul, [facility] [place] [facility] [address] [id number], [place] [address]- 8217 Jul, [facility] [place] [facility] [address] [id number] [place] [address]- 7019 Jul, [facility] [place] [facility] [address] [id number], [place] [address]- 7460 Apr, [facility] [place] [facility] [address] [id number], [place] [address]- 6673 Apr, [facility] [place] [facility] [address] [id number], [place] [address]- 4780 Apr, [facility] [place] [facility] [address] [id number] [place] [address]- 7391 Apr, [facility] [place] [facility] [address] [id number], [place] [address]- 2335 Apr, [facility] [place] [facility] [address] [id number] [place] [address]- 2413 Apr, [facility] [place] [facility] [address] [id number] [place] [address]- 7820 18 Apr, 2012 [facility] [place] [facility] [address] [id number] [place] [address]- 8804 18 Apr, 2012 [facility] [place] [facility] [address] [id number] [place] [address]- 0340 17 Apr, 2012 [facility] [place] [facility] [address] [id number] [place] [address]- 2505 17 Apr, 2012 [facility] [place] [facility] [address] [id number] [place] [address]- 3326 16 Apr, 2012 [facility] [place] [facility] [address] [id number] [place] [address]- 4710 16 Apr, 2012 [facility] [place] [facility] [address] [id number] [place] [address]- 9922 16 Apr, 2012 [facility] [place] [facility] [address] [id number] [place] [address]- 9389 16 Apr, 2012 [facility] [place] [facility] [address] [id number] [place] [address]- 7938 18 Mar, 2012 [facility] [place] [facility] [address] [id number] [place] [address]- 0278 17 Mar, 2012 [facility] [place] [facility] [address] [id number] [place] [address]- 6045 16 Mar, 2012 [facility] [place] [facility] [address] [id number] [place] [address]- 7021 13 Mar, 2012 [facility] [place] [facility] [address] [id number] [place] [address]- 4664 Feb, [facility] [place] [facility] [address] [id number] [place] [address]- 7519 Feb, [facility] [place] [facility] [address] [id number] [place] [address]- 2203 Jan, [facility] [place] [facility] [address] [id number] [place] 9225 Jan, [facility] [place] [facility] [address] [id number] [place] [address]- 7025 Jan, [facility] [place] [facility] [address] [id number] [place] [address]- 4795 Jan, [facility] [place] [facility] [address] [id number] [place] [address]- 2573 Jan, [facility] [place] [facility] [address] [id number] [place] [address]- 5812 Jan, [facility] [place] [facility] [address] [id number] [place] [address]- 9733 Jan, [facility] [place] [facility] [address] [id number] [place] [address]- 9864 Jan, [facility] [place] [facility] [address] [id number] [place] [address]- 9100 Dec, [facility] [place] [facility] [address] [id number] [place] [address]- 1620 Dec, [facility] [place] [facility] [address] [id number] [place] [address]- 5488 Dec, [facility] [place] [facility] [address] [id number] [place] [address]- 8831 Dec, [facility] [place] [facility] [address] [id number] [place] [address]- 8581 Dec, [facility] [place] [facility] [address] [id number] [place] [address]- 9852 Dec, [facility] [place] [facility] [address] [id number] [place] [address]- 1043 Dec, [facility] [place] [facility] [address] [id number] [place] [address]- 9686 Dec, [facility] [place] [facility] [address] [id number] [place] [address]- 5006 Dec, [facility] [place] [facility] [address] [id number] [place] [address]- 3109 November, [facility] [address] [id number] [place] [address]- 0684 Oct, [facility] [address] [id number] [place] [address]- 1670 Oct, [facility] [address] [id number] [place] [address]- 4252 Oct, [facility] [address] [id number] [place] [address]- 2039 Oct, [facility] [address] [id number] [place] [address]- 9149 Oct, [facility] [address] [id number] [place] [address]- 2996 Oct, [facility] [address] [id number] [place] [address]- 4121 Aug, [facility] [place] [facility] [address] [id number] [place] [address]- 3767 Aug, [facility] [address] [id number] [place] [address]- 0504 Jul, [facility] [address] [id number] [place] [address]- 9920 Jul, [facility] [address] [id number] [place] [address]- 0050 Jul, [facility] [place] [facility] [address] [id number] [place] [address]- 4674 Jul, [facility] [place] [facility] [address] [id number] [place] [address]- 3516 Jul, [facility] [place] [facility] [address] [id number] [place] [address]- 0493 Jul, [facility] [place] [facility] [address] [id number] [place] [address]- 9594 Jul, [facility] [place] [facility] [address] [id number] [place] [address]- 5940 Jun, [facility] [address] [id number] [place] 9260 Jun, [facility] [place] [facility] [address] [id number] [place] 3269 Jun, [facility] [address] [id number] [place] [address]- 0650 Jun, [facility] [place] [facility] [address] [id number] [place] [address]- 5590 Jun, [facility] [address] [id number] [place] [address]- 7393 Apr, [facility] [address] [id number] [place] [address]- 4789 Apr, [facility] [address] [id number] [place] [address]- 8738 Apr, [facility] [address] [id number] [place] [address]- 1675 Mar, [facility] [place] [facility] [address] [id number] [place] [address]- 9392 Feb, [facility] [address] [id number] [place] [address]- 7178 Jan, [facility] [place] [facility] [address] [id number] [place] [address]- 2974 Jan, [facility] [place] [facility] [address] [id number] [place] [address]- 0614 Dec, [facility] [place] [facility] [address] [id number] [place] [address]- 0654 November, [facility] [place] [facility] [address] [id number] [place] [address]- 0066 Oct, [facility] [place] [facility] [address] [id number] [place] [address]- 2835 Sep, [facility] [address] [address]- 4887 Sep, [facility] [address], [place] [address]- 5805 Aug, [facility] [address], [place] [address]- 1589 Aug, [facility] [id number] [place] [address] 01770- 7167 Aug, [facility] [id number] [place] [address] 43715- 9018 Jul, [facility] [id number] [place] [address] 13648- 3822 Jul, [facility] [address] [address]- 4293 Jun, [facility] [id number] [place] [address] 51501- 2900 Jun, [facility] [address] [address]- 0458 May, [facility] [address] [address]- 4870 Apr, [facility] [address], [place] [address]- 5767 Apr, IMMUNIZATIONS No Known Immunizations SOCIAL HISTORY Never Assessed REASON FOR VISIT BH intake - past pt of Magalie Linton PLAN OF CARE Activity Details Follow Up 2 Months Reason: VITAL SIGNS Height 65 in 2017-05-31 Weight 282.3 lbs 2017-05-31 Heart Rate 80 bpm 2017-05-31 Respiratory Rate 18 2017-05-31 BMI 46.97 kg/m2 2017-05-31 Blood pressure systolic 128 mmHg 2017-05-31 Blood pressure diastolic 84 mmHg 2017-05-31 MEDICATIONS Medication Instructions Dosage Frequency Start Date End Date Duration Status Omeprazole 20 mg Orally Once a day 1 capsule 24h Apr, 30 day(s ) Active propranolol 20 mg 1 Tablet by Oral route 2 times per day Dec, Active Wellbutrin XL 150 MG Orally Once a day 1 tablet in the morning 24h November, Active Clonazepam 0.5 MG Orally as needed Twice a day 1 tablet 12h Sep, Active Latuda 60 MG Orally Once a day 1 tablet with food 24h Active RESULTS No Results PROCEDURES Procedure Date Ordered Result Body Site [facility] VISIT ESTABLISHED PATIENT May 31, 2017 PSYTX COMPLEX INTERACTIVE May 31, 2017 INSTRUCTIONS MEDICATIONS ADMINISTERED No Known Medications MEDICAL (GENERAL) HISTORY Type Description Date Medical History GERD Surgical History cholecystectomy 2013
--- OUTSIDE RECORDS SUMMARY | 2018-01-30 08:39 | XMS REPORT ---
Author Author JOAO KULKARNI [facility] Address [address] [place] [address] Care Team Providers Care Project Scheduler Name Role Phone JOAO KULKARNI Unavailable PROBLEMS Type Condition ICD9-CM Code WGV15-CY Code Onset Dates Condition Status SNOMED Code Problem Unspecified episodic mood disorder 296.90 Active 292637398 Problem Major depressive disorder, recurrent episode, mild 296.31 Active 38201748 Problem Major depressive disorder, recurrent episode, moderate 296.32 Active 90083536 Problem Morbid (severe) obesity due to excess calories E66.01 Active 90941024723258 Problem Wheezing 786.07 Active 62442714 Problem Body mass index (BMI) of 40.0-44.9 in adult Z68.41 Active 743177925 Problem Encounter for long-term (current) use of other medications V58.69 Active 410127448 Problem Obsessive compulsive disorder F42 Active 168498973 Problem Mental retardation F79 Active 02799334 Problem Major depressive disorder, recurrent episode, in partial remission F33.41 Active 35615462 Problem Major depression, recurrent F33.9 Active 72878035 Problem Dysfunction of Eustachian tube 381.81 Active 62231418 Problem Moderate mental retardation 318.0 Active 80394620 Problem Unspecified otalgia 388.70 Active 66607159 Problem Acute suppurative otitis media without spontaneous rupture of eardrum 382.00 Active 84190236 Problem Obsessive-compulsive disorders 300.3 Active 794985219 Problem Generalized anxiety disorder 300.02 Active 91619514 Problem Mild mental retardation 317 Active 19997192 Problem Anxiety state, unspecified 300.00 Active 275413576 Problem Depressive disorder, not elsewhere classified 311 Active 53700313 Problem Unspecified psychosis 298.9 Active 54564321 ALLERGIES No Known Allergies ENCOUNTERS Encounter Location Date Diagnosis [facility] [address] [facility] [id number] [address] Jan, [facility] [id number] [place] [address]99- 1713 Dec, [place] [id number] [place] [address] 39537- 7788 November, Major depressive disorder, recurrent episode, in partial remission F33.41 ; Mental retardation F79 ; Obsessive compulsive disorder F42 and BMI 50.0-59.9, adult Z68.43 [place] [id number] [place] [address] 98845- 4331 Oct, [facility] [id number] [place] [address]55 -[address]31 Jul, Acute nasopharyngitis J00 and Vomiting, intractability of vomiting not specified, presence of nausea not specified, unspecified vomiting type R11.10 [place] [id number] [place] [address] 63023- 1724 Jul, BMI 45.0-49.9, adult Z68.42 ; Major depressive disorder, recurrent episode, in partial remission F33.41 ; Mental retardation F79 and Obsessive compulsive disorder F42 [place] [id number] [place] [address] 17087- 7133 Jul, High risk medication use Z79.899 [place] [id number] [place] [address] 29676- 8621 Jun, Morbid (severe) obesity due to excess calories E66.01 ; Body mass index (BMI) of 40.0-44.9 in adult Z68.41 ; Mental retardation F79 ; Elevated blood pressure reading R03.0 ; Screening for diabetes mellitus (DM) Z13.1 and Screening for lipid disorders Z13.220 [place] [id number] [place] [address] 29371- 0858 May, High risk medication use Z79.899 ; Major depressive disorder , recurrent episode, in partial remission F33.41 ; Mental retardation F79 and Obsessive compulsive disorder F42 [place] [id number] [place] [address] 82533- 4203 May, [facility] [address] [id number] [address] 6[address] Apr, [facility] [id number] [id number] Mar, [facility] [address] [address] Jan, Major depression, recurrent F33.9 ; Mental retardation F79 and Obsessive compulsive disorder F42 [facility] [id number] [address] November, Major depression, recurrent F33.9 and Obsessive compulsive disorder F42 [facility] [address] [address] 8[address] Sep, [facility] [address] [address] 08[address] Jun, Obsessive compulsive disorder F42 ; Mental retardation F79 and Major depressive disorder, recurrent episode, in partial remission F33.41 [facility] [address] [address] 8[address] Apr, [facility] [address] [address] 1357 Apr, Major depression, recurrent F33.9 ; Obsessive compulsive disorder F42 and Mental retardation F79 [facility] [address] [address] 5[address] Jan, [facility] [address] [address] 09[address] Jan, Major depression, recurrent F33.9 ; Obsessive compulsive disorder F42 and Mental retardation F79 [facility] [address] [address] 2504 Dec, [facility] [address] [address] 0692 November, [facility] [id number] [address] 7858 November, [facility] [address] [address] 3633 Oct, [facility] [address] [address] 9816 Oct, Obsessive compulsive disorder F42 ; Major depression, recurrent F33.9 and Mental retardation F79 [facility] [address] [address] 7824 Sep, [facility] [address] [place] [address] 2424 17 Aug, 2015 [facility] [id number] [place] [address] 02720- 5230 Aug, [facility] [address] [address] 0338 Aug, [facility] [address] [address] 0519 Jul, [facility] [address] [address] Jul, [facility] [address] [address]- 1605 Jul, [facility] [address] [address]- 8184 Jun, Obsessive compulsive disorder F42 ; Major depression, recurrent F33.9 and Mental retardation F79 [facility] [address] [address]- 1652 Jun, [facility] [address] [address]- 8166 Jun, [facility] [id number] [address]- 9493 May, [facility] [address] [address] 15 Apr, 2015 [facility] [id number] [address] 30 Mar, 2015 Generalized anxiety disorder 300.02 and Major depressive disorder, recurrent episode, mild 296.31 [facility] [address] [address] 14 Mar, 2015 [facility] [id number] [address]- 7896 13 Feb, 2015 [facility] [id number] [address]- 0636 13 Jan, 2015 [facility] [id number] [place] [address] 032022- 3823 10 Dec, 2014 Generalized anxiety disorder 300.02 and Depressive disorder , not elsewhere classified 311 [facility] [address] [address]- 3731 14 Oct, 2014 [facility] [address] [address]- 9776 13 Oct, 2014 [facility] [address] [address]- 8469 11 Sep, 2014 [facility] [address] [address]- 2027 Sep, [facility] [address] [address]- 2404 12 Jun, 2014 [facility] [address] [address]- 9801 Jun, [facility] [address] [address]- 2832 May, [facility] [id number] [address]357 May, [facility] [address] [address]- 6174 May, [facility] [id number] [place] [address]- 7816 Apr, [facility] [place] [facility] [address] [id number] [place] [address]- 7530 Apr, [facility] [place] [facility] [address] [id number] [place] [address]- 4269 Feb, [facility] [place] [facility] [address] [id number] [place] [address]- 7960 Jan, [facility] [place] [facility] [address] [id number] [place] [address]- 5310 Jan, [facility] [place] [facility] [address] [id number] [place] [address]- 8580 Dec, [facility] [place] [facility] [address] [id number] [place] [address]- 7313 Dec, [facility] [place] [facility] [address] [id number] [place] [address]- 4566 Oct, [facility] [place] [facility] [address] [id number] [place] [address]- 1729 Oct, [facility] [place] [facility] [address] [id number] [place] [address]- 6926 Oct, [facility] [place] [facility] [address] [id number] [place] [address]- 3698 Oct, [facility] [place] [facility] [address] [id number] [place] [address]- 5048 Sep, [facility] [place] [facility] [address] [id number] [place] [address]- 6236 Sep, [facility] [place] [facility] [address] [id number] [place] [address]- 9278 Sep, [facility] [place] [facility] [address] [id number] [place] [address]- 1077 Sep, [facility] [place] [facility] [address] [id number] [place] [address]- 3872 Aug, [facility] [place] [facility] [address] [id number] [place] [address]- 5471 Aug, [facility] [place] [facility] [address] [id number] [place] [address]- 4715 Aug, [facility] [place] [facility] [address] [id number] [place] [address]- 4058 Aug, [facility] [place] [facility] [address] [id number] [place] [address]- 4705 Jul, [facility] [place] [facility] [address] [id number] [place] [address]- 9713 Jul, [facility] [place] [facility] [address] [id number] [place] [address]- 8541 Jul, [facility] [place] [facility] [address] [id number] [place] [address]- 6520 Jul, [facility] [place] [facility] [address] [id number], [place] [address]- 1016 Jul, [facility] [place] [facility] [address] [id number] [place] [address]- 6327 Jul, [facility] [place] [facility] [address] [id number] [address]- 2612 Apr, [facility] [place] [facility] [address] [id number], [place] [address]- 9086 Apr, [facility] [place] [facility] [address] [id number], [place] [address]- 1064 Apr, [facility] [place] [facility] [address] [id number] [place] [address]- 4968 Apr, [facility] [place] [facility] [address] [id number], [place] [address]- 1221 Apr, [facility] [place] [facility] [address] [id number], [place] [address]- 2459 Apr, [facility] [place] [facility] [address] [id number], [place] [address]- 7231 18 Apr, 2012 [facility] [place] [facility] [address] [id number] [place] [address]- 3586 18 Apr, 2012 [facility] [place] [facility] [address] [id number] [place] [address]- 6454 17 Apr, 2012 [facility] [place] [facility] [address] [id number] [place] [address]- 5900 17 Apr, 2012 [facility] [place] [facility] [address] [id number] [place] [address]- 0174 16 Apr, 2012 [facility] [place] [facility] [address] [id number] [place] [address]- 3219 16 Apr, 2012 [facility] [place] [facility] [address] [id number] [place] [address]- 8213 16 Apr, 2012 [facility] [place] [facility] [address] [id number] [place] [address]- 1263 16 Apr, 2012 [facility] [place] [facility] [address] [id number] [place] [address]- 7838 18 Mar, 2012 [facility] [place] [facility] [address] [id number] [place] [address]- 8361 17 Mar, 2012 [facility] [place] [facility] [address] [id number] [place] [address]- 3374 16 Mar, 2012 [facility] [place] [facility] [address] [id number] [place] [address]- 1558 13 Mar, 2012 [facility] [place] [facility] [address] [id number] [address]- 5724 Feb, [facility] [place] [facility] [address] [id number] [place] [address]- 5296 Feb, [facility] [place] [facility] [address] [id number] 3653 Jan, [facility] [place] [facility] [address] [id number] [place] [address]- 8936 Jan, [facility] [place] [facility] [address] [id number] [place] [address]- 8154 Jan, [facility] [place] [facility] [address] [id number] [place] [address]- 6114 Jan, [facility] [place] [facility] [address] [id number] [place] [address]- 2515 Jan, [facility] [place] [facility] [address] [id number] [place] [address]- 3771 Jan, [facility] [place] [facility] [address] [id number] [place] [address]- 9858 Jan, [facility] [place] [facility] [address] [id number] [place] [address]- 6079 Jan, [facility] [place] [facility] [address] [id number] [place] [address]- 8785 Dec, [facility] [place] [facility] [address] [id number] [place] [address]- 2292 Dec, [facility] [place] [facility] [address] [id number] [place] [address]- 0121 Dec, [facility] [place] [facility] [address] [id number] [place] [address]- 8640 Dec, [facility] [place] [facility] [address] [id number] [place] [address]- 4800 Dec, [facility] [place] [facility] [address] [id number] [place] [address]- 5813 Dec, [facility] [place] [facility] [address] [id number] [place] [address]- 0305 Dec, [facility] [place] [facility] [address] [id number] [place] [address]- 1534 Dec, [facility] [place] [facility] [address] [id number] [place] [address]- 1026 Dec, [facility] [place] [facility] [address] [id number] [place] [address]- 3757 November, [facility] [address] [id number] [place] [address]- 8382 Oct, [facility] [place] [facility] [address] [id number] [place] [address]- 8420 Oct, [facility] [address] [id number] [place] [address]- 3797 Oct, [facility] [place] [facility] [address] [id number] [place] [address]- 8879 Oct, [facility] [address] [id number] [place] [address]- 8863 Oct, [facility] [address] [id number] [place] [address]- 1635 Oct, [facility] [address] [id number] [place] [address]- 7186 Aug, [facility] [place] [facility] [address] [id number] [place] [address]- 5972 Aug, [facility] [address] [id number] [place] [address]- 3233 Jul, [facility] [place] [facility] [address] [id number] [place] [address]- 6895 Jul, [facility] [place] [facility] [address] [id number] [place] [address]- 5576 Jul, [facility] [place] [facility] [address] [id number] [place] [address]- 1602 Jul, [facility] [place] [facility] [address] [id number] [place] [address]- 6412 Jul, [facility] [place] [facility] [address] [id number] [place] [address]- 0388 Jul, [facility] [place] [facility] [address] [id number] [place] [address]- 3835 Jul, [facility] [place] [facility] [address] [id number] [place] [address]- 4755 Jun, [facility] [address] [id number] [place] [address]- 6268 Jun, [facility] [place] [facility] [address] [id number] [place] [address]- 3313 Jun, [facility] [address] [id number] [place] [address]- 7385 Jun, [facility] [place] [facility] [address] [id number] [place] [address]- 0002 Jun, [facility] [address] [id number] [place] [address]- 2660 Apr, [facility] [place] [facility] [address] [id number] [place] [address]- 6149 Apr, [facility] [address] [id number] [place] [address]- 8736 Apr, [facility] [address] [id number] [place] [address]- 3447 Mar, [facility] [place] [facility] [address] [id number] [place] [address]- 5877 Feb, [facility] [address] [id number] [place] [address]- 6354 Jan, [facility] [place] [facility] [address] [id number] [place] [address]- 8677 Jan, [facility] [place] [facility] [address] [id number] [place] [address]- 4873 Dec, [facility] [place] [facility] [address] [id number] [place] [address]- 3517 November, [facility] [place] [facility] [address] [id number] [place] [address]- 1028 Oct, [facility] [place] [facility] [address] [id number] [place] [address]- 7939 Sep, [facility] [id number] [address]- 8265 Sep, [facility] [address] [address]- 2173 Aug, [facility] [address] [address]- 2217 Aug, [facility] [address] [address]- 7977 Aug, [facility] [address]- 5855 Jul, [facility] [id number] [place] [address]385- 0670 Jul, [facility] [address] [address]- 8309 Jun, [facility] [address] [address]- 4274 Jun, [facility] [address] [address]- 5542 May, [facility] [address] [address]- 4462 Apr, [facility] [id number] [address]- 3953 Apr, IMMUNIZATIONS No Known Immunizations SOCIAL HISTORY Never Assessed REASON FOR VISIT --[facility] PLAN OF CARE Activity Details Follow Up 6 Months with Amanda f/u VANCE Reason: VITAL SIGNS Height 65 in 2017-07-07 Weight 289.7 lbs 2017-07-07 Temperature 98.3 degrees Fahrenheit 2017-07-07 Heart Rate 100 bpm 2017-07-07 Respiratory Rate 20 2017-07-07 BMI 48.20 kg/m2 2017-07-07 Blood pressure systolic 130 mmHg 2017-07-07 Blood pressure diastolic 102 mmHg 2017-07-07 MEDICATIONS Medication Instructions Dosage Frequency Start Date End Date Duration Status Latuda 60 MG Orally Once a day 1 tablet with food 24h Active Wellbutrin XL 150 MG Orally Once a day 1 tablet in the morning 24h November, Active propranolol 20 mg 1 Tablet by Oral route 2 times per day Dec, Active Omeprazole 20 mg Orally Once a day 1 capsule 24h Apr, 30 day(s ) Active Singulair 10 MG Orally Once a day 1 tablet in the evening 24h Not- Taking Clonazepam 0.5 MG Orally as needed Twice a day 1 tablet 12h 11 Sep, 2014 Active RESULTS No Results PROCEDURES Procedure Date Ordered Result Body Site [facility] VISIT ESTABLISHED PATIENT Jul 07, 2017 Hemoglobin Test Send Out 0 dollar Jul 07, 2017 [facility] Jul 07, 2017 VENIPUNCT, ROUTINE* Jul 07, 2017 INSTRUCTIONS MEDICATIONS ADMINISTERED No Known Medications MEDICAL (GENERAL) HISTORY Type Description Date Medical History GERD Surgical History cholecystectomy 2013
--- OUTSIDE RECORDS SUMMARY | 2018-01-30 08:41 | XMS REPORT ---
Author Author IRENE Madrigal [facility] Address Unknown Care Team Providers Care Packaging Design Engineer Name Role Phone IRENE Madrigal Unavailable PROBLEMS Type Condition ICD9-CM Code HWP04-EV Code Onset Dates Condition Status SNOMED Code Problem Unspecified episodic mood disorder 296.90 Active 635790105 Problem Major depressive disorder, recurrent episode, mild 296.31 Active 60159753 Problem Major depressive disorder, recurrent episode, moderate 296.32 Active 64870898 Problem Morbid (severe) obesity due to excess calories E66.01 Active 12746200147208 Problem Wheezing 786.07 Active 92708401 Problem Body mass index (BMI) of 40.0-44.9 in adult Z68.41 Active 926275353 Problem Encounter for long-term (current) use of other medications V58.69 Active 443885279 Problem Obsessive compulsive disorder F42 Active 230095153 Problem Mental retardation F79 Active 73766645 Problem Major depressive disorder, recurrent episode, in partial remission F33.41 Active 18534733 Problem Major depression, recurrent F33.9 Active 64605354 Problem Dysfunction of Eustachian tube 381.81 Active 67284745 Problem Moderate mental retardation 318.0 Active 35433365 Problem Unspecified otalgia 388.70 Active 28047846 Problem Acute suppurative otitis media without spontaneous rupture of eardrum 382.00 Active 46721356 Problem Obsessive-compulsive disorders 300.3 Active 748408834 Problem Generalized anxiety disorder 300.02 Active 87823764 Problem Mild mental retardation 317 Active 58639239 Problem Anxiety state, unspecified 300.00 Active 814180737 Problem Depressive disorder, not elsewhere classified 311 Active 23151063 Problem Unspecified psychosis 298.9 Active 79293052 ALLERGIES No Information ENCOUNTERS Encounter Location Date Diagnosis [facility] [address] [facility] [id number] [place] [address] November, [facility] [address] [address] 14 Jul, 2017 Acute nasopharyngitis J00 and Vomiting, intractability of vomiting not specified, presence of nausea not specified, unspecified vomiting type R11.10 [place] [id number] [place] [address]343- [address] 09 Jul, 2017 BMI 45.0-49.9, adult Z68.42 ; Major depressive disorder, recurrent episode, in partial remission F33.41 ; Mental retardation F79 and Obsessive compulsive disorder F42 [place] [id number] [place] [address]65- 1934 Jul, High risk medication use Z79.899 [place] [address] [place] [id number] [place] [address] 20135- 5280 Jun, Morbid (severe) obesity due to excess calories E66.01 ; Body mass index (BMI) of 40.0-44.9 in adult Z68.41 ; Mental retardation F79 ; Elevated blood pressure reading R03.0 ; Screening for diabetes mellitus (DM) Z13.1 and Screening for lipid disorders Z13.220 [place] [id number] [place] [address]- 48[address] May, High risk medication use Z79.899 ; Major depressive disorder , recurrent episode, in partial remission F33.41 ; Mental retardation F79 and Obsessive compulsive disorder F42 [place] [id number] [place] [address]34- 2094 May, [place] [address], [place] [address] Apr, [facility] [place] [id number] [facility] [id number] [id number] Mar, [address] [place] [address]2821- 4714 Jan, Major depression, recurrent F33.9 ; Mental retardation F79 and Obsessive compulsive disorder F42 [place] [address] [place] [id number] [place] [address] 73141- 54[address] November, Major depression, recurrent F33.9 and Obsessive compulsive disorder F42 [facility] [address] [address] Sep, [facility] [address], [place] [address] Jun, Obsessive compulsive disorder F42 ; Mental retardation F79 and Major depressive disorder, recurrent episode, in partial remission F33.41 [facility] [address], [place] [address] Apr, [facility] [address] [place] [id number] [place] [address] 17056- 2351 Apr, Major depression, recurrent F33.9 ; Obsessive compulsive disorder F42 and Mental retardation F79 [facility] [address], [place] [address] Jan, [facility] [address], [place] [address] Jan, Major depression, recurrent F33.9 ; Obsessive compulsive disorder F42 and Mental retardation F79 [facility] [address], [place] [address] 244[address] Dec, [facility] [address], [place] [address] November, [facility] [address] [address] November, [facility] [address] [address] Oct, [facility] [address] [address] Oct, Obsessive compulsive disorder F42 ; Major depression, recurrent F33.9 and Mental retardation F79 [facility] [address], [place] [address] 94[address] Sep, [facility] [address], [place] [address] 14[address] 17 Aug, 2015 [facility] [address] [place] [address] 82313- 2537 15 Aug, 2015 [facility] [address], [place] [address] Aug, [facility] [address] [place] [id number] [place] [address] 65071- 0436 Jul, [facility] [address] [place] [address] 57959- 2392 Jul, [facility] [address] [place] [id number] [place] [address] 56642- 5313 Jul, [facility] [address] [place] [id number] [place] [address] 17244- 2135 Jun, Obsessive compulsive disorder F42 ; Major depression, recurrent F33.9 and Mental retardation F79 [facility] [address] [place] [id number] [address] Jun, [facility] [address] [place] [id number] [place] [address] 50550- 1791 Jun, [facility] [address], [place] [address] May, [facility] [address] [place] [address] 73828- 5237 Apr, [facility] [address] [place] [address] 39834- 3473 30 Mar, 2015 Generalized anxiety disorder 300.02 and Major depressive disorder, recurrent episode, mild 296.31 [facility] [address] [place] [id number] [place] [address] 49298- 2913 14 Mar, 2015 [facility] [address], [place] [address]- 1736 13 Feb, 2015 [facility] [address] [place] [id number] [place] [address] 88218- 7816 Jan, [facility] [address] [facility] [id number] [place] [address]- [address]66 10 Dec, 2014 Generalized anxiety disorder 300.02 and Depressive disorder , not elsewhere classified 311 [facility] [address] [id number] [place] [address]- 9846 14 Oct, 2014 [facility] [address] [facility] [id number] [place] [address]- 2733 13 Oct, 2014 [facility] [address] [id number] [place] [address]- 3963 Sep, [facility] [address] [facility] [id number] [place] [address]- 0961 Sep, [facility] [address] [facility] [id number] [place] [address]- 2633 Jun, [facility] [address] [facility] [id number] [place] [address]- 6331 Jun, [facility] [address] [facility] [id number] [place] [address]- 0056 May, [facility] [address] [facility] [id number] [place] [address]- 9829 May, [facility] [address] [place] [id number] [place] [address] 1274 May, [facility] [address] [facility] [id number] [place] [address]- 0126 Apr, [facility] [address] [facility] [id number] [place] [address]- 8813 Apr, [facility] [address] [facility] [id number] [place] [address]- 7546 Feb, [facility] [address] [facility] [id number] [place] [address]- 6006 Jan, [facility] [address] [facility] [id number] [place] [address]- 2033 Jan, [facility] [place] [facility] [address] [id number] [place] [address]- 4281 Dec, [facility] [place] [facility] [address] [id number] [place] [address]- 7058 Dec, [facility] [place] [facility] [address] [id number] [place] [address]- 5946 Oct, [facility] [place] [facility] [address] [id number] [place] [address]- 8997 Oct, [facility] [place] [facility] [address] [id number] [place] [address]- 9738 Oct, [facility] [place] [facility] [address] [id number] [place] [address]- 7346 Oct, [facility] [place] [facility] [address] [id number] [place] [address]- 1862 Sep, [facility] [place] [facility] [address] [id number] [place] [address]- 0253 Sep, [facility] [place] [facility] [address] [id number] [place] [address]- 7741 Sep, [facility] [place] [facility] [address] [id number] [place] [address]- 4036 Sep, [facility] [place] [facility] [address] [id number] [place] [address]- 5572 Aug, [facility] [place] [facility] [address] [id number] [place] [address]- 5516 Aug, [facility] [place] [facility] [address] [id number] [place] [address]- 3051 Aug, [facility] [place] [facility] [address] [id number] [place] [address]- 0132 Aug, [facility] [place] [facility] [address] [id number] [place] [address]- 0432 Jul, [facility] [place] [facility] [address] [id number] [place] [address]- 6341 Jul, [facility] [address] [id number] [place] [address]- 2053 Jul, [facility] [place] [facility] [address] [id number] [place] [address]- 3306 Jul, [facility] [address] [id number] [place] [address]- 2846 Jul, [facility] [place] [facility] [address] [id number] [place] [address]- 6502 Jul, [facility] [address] [id number] [place] [address]- 3000 Apr, [facility] [address] [id number] [place] [address]- 9372 Apr, [facility] [place] [facility] [address] [id number] [place] [address]- 7576 Apr, [facility] [address] [id number] [place] [address]- 0885 24 Apr, 2013 [facility] [place] [facility] [address] [id number] [place] [address]- 0792 Apr, [facility] [address] [id number] [place] [address]- 1192 Apr, [facility] [place] [facility] [address] [id number] [place] [address]- 0761 18 Apr, 2013 [facility] [place] [facility] [address] [id number] [place] [address]- 1637 18 Apr, 2013 [facility] [place] [facility] [address] [id number] [place] [address]- 7404 Apr, [facility] [place] [facility] [address] [id number] [place] [address]- 9334 Apr, [facility] [place] [facility] [address] [id number] [place] [address]- 4132 16 Apr, 2013 [facility] [place] [facility] [address] [id number] [place] [address]- 2043 16 Apr, 2013 [facility] [place] [facility] [address] [id number] [place] [address]- 0266 16 Apr, 2013 [facility] [place] [facility] [address] [id number] [place] [address]- 1975 16 Apr, 2013 [facility] [place] [facility] [address] [id number] [place] [address]- 8190 18 Mar, 2013 [facility] [place] [facility] [address] [id number] [place] [address]- 0938 17 Mar, 2013 [facility] [place] [facility] [address] [id number] [place] [address]- 9141 16 Mar, 2013 [facility] [place] [facility] [address] [id number] [place] [address]- 6871 13 Mar, 2013 [facility] [place] [facility] [address] [id number] [place] [address]- 9328 Feb, [facility] [place] [facility] [address] [id number] [place] [address]- 5146 Feb, [facility] [place] [facility] [address] [id number] [place] [address]- 8643 Jan, [facility] [place] [facility] [address] [id number] [place] [address]- 4075 Jan, [facility] [place] [facility] [address] [id number], [place] [address]- 4678 Jan, [facility] [place] [facility] [address] [id number] [place] [address]- 4959 Jan, [facility] [place] [facility] [address] [id number] [place] [address]- 2534 Jan, [facility] [place] [facility] [address] [id number], [place] [address]- 0874 Jan, [facility] [place] [facility] [address] [id number], [place] [address]- 7968 05 Jan, 2013 [facility] [address] [id number] [place] [address]- 0489 Jan, [facility] [place] [facility] [address] [id number] [place] [address]- 7862 Dec, [facility] [place] [facility] [address] [id number] [place] [address]- 9806 Dec, [facility] [place] [facility] [address] [id number] [place] [address]- 4238 Dec, [facility] [place] [facility] [address] [id number] [place] [address]- 2468 Dec, [facility] [place] [facility] [address] [id number] [place] [address]- 0634 Dec, [facility] [address] [id number] [place] [address]- 2913 Dec, [facility] [place] [facility] [address] [id number] [place] [address]- 4985 Dec, [facility] [place] [facility] [address] [id number] [place] [address]- 9511 Dec, [facility] [place] [facility] [address] [id number] [place] [address]- 5652 Dec, [facility] [place] [facility] [address] [id number] [place] [address]- 8231 November, [facility] [place] [facility] [address] [id number] [place] [address]- 6354 Oct, [facility] [place] [facility] [address] [id number] [place] [address]- 8374 Oct, [facility] [place] [facility] [address] [id number] [place] [address]- 8739 Oct, [facility] [place] [facility] [address] [id number] [place] [address]- 7094 Oct, [facility] [place] [facility] [address] [id number] [place] [address]- 8699 11 Oct, 2012 [facility] [address] [id number] [place] [address]- 5651 Oct, [facility] [place] [facility] [address] [id number] [place] [address]- 9986 08 Aug, 2012 [facility] [address] [id number] [place] [address]- 5616 Aug, [facility] [place] [facility] [address] [id number] [place] [address]- 5918 Jul, [facility] [address] [id number] [place] [address]- 5216 Jul, [facility] [address] [id number] [place] [address]- 3702 Jul, [facility] [address] [id number] [place] [address]- 8789 Jul, [facility] [address] [id number] [place] [address]- 1323 Jul, [facility] [address] [id number] [place] [address]- 6752 Jul, [facility] [address] [id number] [place] [address]- 5542 Jul, [facility] [address] [id number] [place] [address]- 1608 Jun, [facility] [address] [id number] [place] [address]- 4572 Jun, [facility] [place] [facility] [address] [id number] [place] [address]- 3993 Jun, [facility] [place] [facility] [address] [id number] [place] [address] Jun, [facility] [place] [facility] [address] [id number] [place] [address]- 1581 Jun, [facility] [place] [facility] [address] [id number] [place] [address]- 6871 Apr, [facility] [place] [facility] [address] [id number] [place] [address]- 4445 Apr, [facility] [place] [facility] [address] [id number] [place] [address]- 0355 Apr, [facility] [place] [facility] [address] [id number] [place] [address]- 6854 Mar, [facility] [place] [facility] [address] [id number] [place] [address]- 2705 Feb, [facility] [place] [facility] [address] [id number] [place] [address]- 0314 Jan, [facility] [place] [facility] [address] [id number] [place] [address]- 6570 Jan, [facility] [place] [facility] [address] [id number] [place] [address]- 5226 Dec, [facility] [place] [facility] [address] [id number] [place] [address]- 8835 November, [facility] [place] [facility] [address] [id number] [place] [address]- 0060 Oct, [facility] [place] [facility] [address] [id number], [place] [address]- 2515 Sep, [facility] [place] [facility] [address] [id number], [place] [address]- 4134 Sep, [facility] [place] [facility] [address] [id number] [place] [address]- 7812 Aug, [facility] [place] [facility] [address] [id number] [place] [address]- 4437 Aug, [facility] [place] [facility] [address] [facility] [id number] [place] [address] 2546 Aug, [facility] [place] [facility] [address] [facility] [id number], [place] [address]- 2546 Jul, [facility] [address] [facility] [id number], [place] [address]- 4616 Jul, [facility] [address] [id number] [address]- 2546 Jun, [facility] [address] [id number] [address]- 2546 Jun, [facility] [address] [id number] [address]- 2546 May, [facility] [address] [id number], [place] [address]- 9476 Apr, [facility] [address] [facility] [id number], [place] [address]- [address] Apr, IMMUNIZATIONS No Known Immunizations SOCIAL HISTORY Never Assessed REASON FOR VISIT hernando/dulce maria Muñoz MA PLAN OF CARE Activity Details Follow Up 3 Months Reason: VITAL SIGNS Height 65 in 2017-01-20 Weight 287.5 lbs 2017-01-20 Heart Rate 88 bpm 2017-01-20 Respiratory Rate 18 2017-01-20 BMI 47.84 kg/m2 2017-01-20 Blood pressure systolic 124 mmHg 2017-01-20 Blood pressure diastolic 82 mmHg 2017-01-20 MEDICATIONS Medication Instructions Dosage Frequency Start Date End Date Duration Status Wellbutrin XL 150 MG Orally Once a day 1 tablet in the morning 24h November, 30 days Active Mucinex 600 MG Orally every 12 hrs 1 tablet as needed 12h Active Latuda 60 MG Orally Once a day 1 tablet with food 24h 30 days Active Clonazepam 0.5 MG Orally as needed Twice a day 1 tablet 12h Sep, 30 days Active Latuda 60 MG Orally Once a day 1 tablet with food 24h Oct, 30 days Active propranolol 20 mg 1 Tablet by Oral route 2 times per day Dec, Active RESULTS No Results PROCEDURES Procedure Date Ordered Result Body Site [facility] VISIT ESTABLISHED PATIENT January 20, 2017 INSTRUCTIONS MEDICATIONS ADMINISTERED No Known Medications MEDICAL (GENERAL) HISTORY Type Description Date Medical History GERD Surgical History cholecystectomy 2013
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
== END 2018-01-29 00:58 | disposition home or self-care (01) ==
LOC: EDUNIT# 22:20 → ER 22:22
DX: M79.642 Pain in left hand (principal); R25.1 Tremor, unspecified; J45.909 Unspecified asthma, uncomplicated; K21.9 Gastro-esophageal reflux disease without esophagitis; E66.9 Obesity, unspecified; Z87.448 Personal history of other diseases of urinary system
CPT/HCPCS: 36415; 73060; 73090; 73110; 80053; 82550; 83874; 85025; 96374

== ENCOUNTER 2018-02-17 19:09 | Inpatient (IN) | payer MEDICARE, MEDICAID ==
[~2018-02-17] VITALS: Ht 162.6 cm; Wt 134.9 kg
[2018-02-17] MEDS ORDERED: NS IV 1000 ML 1,000 ML IV SCH ×2 (19:20→20:41)
[2018-02-17] MEDS ORDERED: ACETAMINOPHEN 325 MG TABLET PO STA (19:27)
[2018-02-17 19:40] LABS: PROTHROMBIN TIME PATIENT 13.3 SEC (12.2-14.7)
[2018-02-17 19:45] LABS: ALANINE AMINOTRANSFERASE 63 U/L (0-55); ALBUMIN 4.6 GM/DL (3.2-4.5); ALKALINE PHOSPHATASE 53 U/L (40-136); BILIRUBIN,TOTAL 0.8 MG/DL (0.1-1.0); BUN/CREATININE RATIO 16; CALCIUM 10.2 MG/DL (8.5-10.1); CARBON DIOXIDE 25 MMOL/L (21-32); CHLORIDE 105 MMOL/L (98-107); CREATININE SERUM 1.07 MG/DL (0.60-1.30); GFR ESTIMATED > 60; GLUCOSE 124 MG/DL (70-105); POTASSIUM 3.8 MMOL/L (3.6-5.0); SODIUM 144 MMOL/L (135-145); TOTAL PROTEIN 7.8 GM/DL (6.4-8.2)
[2018-02-17 19:46] LABS: BASOPHILS # (AUTO) 0.1 10^3/uL (0.0-0.1); BASOPHILS % (AUTO) 1 % (0-10); EOSINOPHILS # (AUTO) 0.2 10^3/uL (0.0-0.3); EOSINOPHILS % (AUTO) 1 % (0-10); HEMATOCRIT 46 % (40-54); HEMOGLOBIN 15.2 G/DL (13.3-17.7); LYMPHOCYTES # (AUTO) 2.2 X 10^3 (1.0-4.0); LYMPHOCYTES % (AUTO) 19 % (12-44); MEAN CORPUSCULAR HEMOGLOBIN 29 PG (25-34); MEAN CORPUSCULAR HGB CONC 33 G/DL (32-36); MEAN CORPUSCULAR VOLUME 87 FL (80-99); MEAN PLATELET VOLUME 10.1 FL (7.4-10.4); MONOCYTES # (AUTO) 1.4 X 10^3 (0.0-1.0); MONOCYTES % (AUTO) 12 % (0-12); NEUTROPHILS # (AUTO) 8.1 X 10^3 (1.8-7.8); NEUTROPHILS % (AUTO) 68 % (42-75); PLATELET COUNT 362 10^3/uL (130-400); RED BLOOD COUNT 5.32 10^6/uL (4.35-5.85); RED CELL DISTRIBUTION WIDTH 12.6 % (10.0-14.5); WHITE BLOOD COUNT 11.9 10^3/uL (4.3-11.0)
[2018-02-17 19:56] LABS: BILIRUBIN,URINE NEGATIVE (NEGATIVE); CLARITY,URINE CLEAR; COLOR,URINE YELLOW; GLUCOSE, URINE (UA) NEGATIVE (NEGATIVE); KETONES,URINE NEGATIVE (NEGATIVE); LEUKOCYTE ESTERASE ,URINE 1+ (NEGATIVE); NITRITE,URINE NEGATIVE (NEGATIVE); PH,URINE 5 (5-9); PROTEIN,URINE 2+ (NEGATIVE); UROBILINOGEN,URINE 1 MG/DL (NORMAL)
[2018-02-17 20:05] LABS: BACTERIA,URINE LARGE /HPF; SQUAMOUS EPITHELIAL CELL,UR RARE /HPF; WBC,URINE 0-2 /HPF
--- NOTE | 2018-02-17 20:29 | ED General ---
General Chief Complaint: Cardiac/General Problems Stated Complaint: TACHYCARDIA Nursing Triage Note: Sent from [facility] with fever and ecg changes. increased shaking Nursing Sepsis Screen: No Definite Risk History of Present Illness Date Seen by Provider: Feb 17, 2018 Time Seen by Provider: 19:30 Initial Comments 37-year-old male evaluated for diaphoresis, tremors and concerns of EKG changes. He was evaluated at [facility] and sent here. He has a long-standing history of multiple medical problems, no previous history of CA. Patient is unable to give his history. Patient has long-standing history of being mentally challenged and having mood disorders. He follows commands but answers very few questions. Father is present and answers some questions about his past medical history but it sure about many. Father reports he began having increased tremors 3 days ago but they have gotten significantly worse today. He has noted blood in toilet and underwear, last colonsocopy was 10 years ago and polyp was removed. Timing/Duration: 1-3 Hours Severity: Moderate Associated Systoms: No Chest Pain, No Cough; Diaphoresis, Fever/Chills; No Headaches; Loss of Appetite, Malaise, Nausea/Vomiting; No Rash, No Seizure, No Shortness of Air, No Syncope; Weakness Allergies and Home Medications Allergies Coded Allergies: NKANo Known Allergies (Unverified Allergy, Mild, 09/22/09) Home Medications Clonazepam 0.5 Mg Tablet, 1 EACH PO BID PRN, (Reported) Lactobacillus Rhamnosus Gg 1 Each Capsule, 1 EACH PO DAILY, (Reported) Loratadine 10 Mg Tablet, 10 MG PO DAILY, (Reported) Lurasidone Hcl 40 Mg Tablet, 40 MG PO DAILY, (Reported) Montelukast Sodium 10 Mg Tablet, 10 MG PO DAILY, (Reported) Olanzapine 10 Mg Tablet, 10 MG PO HS, (Reported) Omeprazole 20 Mg Capsule.dr, 20 MG PO DAILY, (Reported) Ondansetron 4 Mg Tab.rapdis, 4 MG PO Q6H PRN for NAUSEA/VOMITING Prescribed by: SHANIQUE GALDAMEZ on 12/19/17 1505 Propranolol Hcl 20 Mg Tablet, 20 MG PO TID, (Reported) Sertraline Hcl 100 Mg Tablet, 100 MG PO DAILY, (Reported) Sucralfate 1 Gm Tab, 1 GM PO ACHS Prescribed by: SARAH ABDI on 07/17/12 1607 Topiramate 50 Mg Tablet, 50 MG PO BID, (Reported) Patient Home Medication List Home Medication List Reviewed: Yes Review of Systems Constitutional: see HPI, chills, diaphoresis EENTM: see HPI, no symptoms reported Respiratory: no symptoms reported, see HPI Cardiovascular: see HPI, palpitations Gastrointestinal: no symptoms reported, see HPI, vomiting (long-standing the child) Skin: see HPI; No pruritus, No rash Psychiatric/Neurological: See HPI, Emotional Problems, Pre-Existing Deficit All Other Systems Reviewed Negative Unless Noted: Yes Past Uvrumge-Hwdzsg-Vtnskn Hx Past Med/Social Hx: Reviewed and Corrections made Patient Social History Recent Foreign Travel: No Contact w/Someone Who Travel: No Recent Infectious Disease Expo: No Recent Hopitalizations: No Immunizations Up To Date Tetanus Booster (TDap): Unknown Date of Influenza Vaccine: Jun 02, 2012 Seasonal Allergies Seasonal Allergies: Yes (Allergic rhinitis) Past Medical History Surgeries: Yes Gallbladder Respiratory: Yes (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) Asthma Cardiac: Yes (History of pericarditis) 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 9.0oz. 81.322247uz; 47.88 BMI Method:Estimated General Appearance: No Apparent Distress, Anxious, Mild Distress Eyes: Bilateral Eye Normal Inspection, Bilateral Eye PERRL, Bilateral Eye EOMI HEENT: PERRL/EOMI, TMs Normal, Normal ENT Inspection, Pharynx Normal Neck: Full Range of Motion, Normal Inspection, Non Tender, Supple Respiratory: Chest Non Tender, Lungs Clear, Normal Breath Sounds Cardiovascular: No JVD, No Murmur, Normal Peripheral Pulses, Tachycardia Gastrointestinal: Normal Bowel Sounds, Non Tender, Soft Rectal: Normal Exam, Normal Rectal Tone, Heme Negative Stool; No Hemorrhoids; Other (prostate enlargement or tenderness.) Neurologic/Psychiatric: Alert, No Motor/Sensory Deficits, Normal Mood/Affect ( appropriate for his baseline) Skin: Normal Color, Diaphoresis Lymphatic: No Adenopathy Focused Exam Lactate Level 02/17/18 19:33: Lactic Acid Level 1.78 Lactic Acid Level Laboratory Tests Test 02/17/18 19:33 Lactic Acid Level 1.78 MMOL/L (0.50-2.00) Progress/Results/Core Measures Suspected Sepsis Recent Fever Within 48 Hours: Yes Infection Criteria Present: Suspected New Infection New/Unexplained Altered Menta: No Sepsis Screen: No Definite Risk Within 3hrs of presentation: Admin fluids, Admin 30ml/kg IBW due to BMI>30, Blood cultures prior to ABX's, Lactate level SIRS Temperature:101.0 Pulse: 123 Respiratory Rate: 26 Laboratory Tests 02/17/18 19:33: White Blood Count 11.9H Blood Pressure 129 /115 Mean: 120 02/17/18 19:33: Lactic Acid Level 1.78 Laboratory Tests 02/17/18 19:15: Creatinine 1.07, INR Comment 1.0, Total Bilirubin 0.8 02/17/18 19:33: Platelet Count 362 Results/Orders Lab Results Laboratory Tests Test 02/17/18 19:15 02/17/18 19:17 02/17/18 19:33 02/17/18 19:45 Range/Units Prothrombin Time 13.3 12.2-14.7 SEC INR Comment 1.0 0.8-1.4 Activated Partial Thromboplast Time 25 24-35 SEC Sodium Level 144 135-145 MMOL/L Potassium Level 3.8 3.6-5.0 MMOL/L Chloride Level 105 98-107 MMOL/L Carbon Dioxide Level 25 21-32 MMOL/L Anion Gap 14 5-14 MMOL/L Blood Urea Nitrogen 17 7-18 MG/DL Creatinine 1.07 0.60-1.30 MG/DL Estimat Glomerular Filtration Rate > 60 BUN/Creatinine Ratio 16 Glucose Level 124 H 70-105 MG/DL Calcium Level 10.2 H 8.5-10.1 MG/DL Total Bilirubin 0.8 0.1-1.0 MG/DL Aspartate Amino Transf (AST/SGOT) 34 5-34 U/L Alanine Aminotransferase (ALT/SGPT) 63 H 0-55 U/L Alkaline Phosphatase 53 40-136 U/L Troponin I < 0.30 <0.30 NG/ML Total Protein 7.8 6.4-8.2 GM/DL Albumin 4.6 H 3.2-4.5 GM/DL Glucometer 129 H 70-110 MG/DL White Blood Count 11.9 H 4.3-11.0 10^3/uL Red Blood Count 5.32 4.35-5.85 10^6/uL Hemoglobin 15.2 13.3-17.7 G/DL Hematocrit 46 40-54 % Mean Corpuscular Volume 87 80-99 FL Mean Corpuscular Hemoglobin 29 25-34 PG Mean Corpuscular Hemoglobin Concent 33 32-36 G/DL Red Cell Distribution Width 12.6 10.0-14.5 % Platelet Count 362 130-400 10^3/uL Mean Platelet Volume 10.1 7.4-10.4 FL Neutrophils (%) (Auto) 68 42-75 % Lymphocytes (%) (Auto) 19 12-44 % Monocytes (%) (Auto) 12 0-12 % Eosinophils (%) (Auto) 1 0-10 % Basophils (%) (Auto) 1 0-10 % Neutrophils # (Auto) 8.1 H 1.8-7.8 X 10^3 Lymphocytes # (Auto) 2.2 1.0-4.0 X 10^3 Monocytes # (Auto) 1.4 H 0.0-1.0 X 10^3 Eosinophils # (Auto) 0.2 0.0-0.3 10^3/uL Basophils # (Auto) 0.1 0.0-0.1 10^3/uL Lactic Acid Level 1.78 0.50-2.00 MMOL/L C-Reactive Protein High Sensitivity 0.66 H 0.00-0.50 MG/DL Urine Color YELLOW Urine Clarity CLEAR Urine pH 5 5-9 Urine Specific [place] 1.025 H 1.016-1.022 Urine Protein 2+ H NEGATIVE Urine Glucose (UA) NEGATIVE NEGATIVE Urine Ketones NEGATIVE NEGATIVE Urine Nitrite NEGATIVE NEGATIVE Urine Bilirubin NEGATIVE NEGATIVE Urine Urobilinogen 1 NORMAL MG/DL Urine Leukocyte Esterase 1+ H NEGATIVE Urine RBC (Auto) 1+ H NEGATIVE Urine RBC NONE /HPF Urine WBC 0-2 /HPF Urine Squamous Epithelial Cells RARE /HPF Urine Crystals NONE /LPF Urine Bacteria LARGE H /HPF Urine Casts NONE /LPF Urine Mucus NEGATIVE /LPF Urine Culture Indicated YES My Orders Orders - BETHANYTASHI MAMI Cbc With Automated Diff (02/17/18 19:20) Comprehensive Metabolic Panel (02/17/18 19:20) Blood Culture (02/17/18 19:20) Urinalysis (02/17/18 19:20) Protime With Inr (02/17/18 19:20) Partial Thromboplastin Time (02/17/18 19:20) Chest 1 View, Ap/Pa Only (02/17/18 19:20) Saline Lock/Iv-Start (02/17/18 19:20) Ekg Tracing (02/17/18 19:20) Vital Signs Adult Sepsis Patie Q15M (02/17/18 19:20) O2 (02/17/18 19:20) Ns Iv 1000 Ml (Sodium Chloride 0.9%) (02/17/18 19:20) Lactic Acid Analyzer (02/17/18 19:20) Catheter(Uri) To Dependent Toña (02/17/18 19:21) Troponin I (02/17/18 19:27) Acetaminophen Tablet/Caplet (Tylenol T (02/17/18 19:27) Hs C Reactive Protein (02/17/18 20:04) Urine Culture (02/17/18 19:45) Ceftriaxone Injection (Rocephin Injectio (02/17/18 20:45) Saline Lock/Iv-Start (02/17/18 20:41) Ns Iv 1000 Ml (Sodium Chloride 0.9%) (02/17/18 20:41) Fecal Occult Bedside (02/17/18 21:04) Medications Given in ED Current Medications Medications Dose Ordered Sig/Yudi Route Start Time Stop Time Status Last Admin Dose Admin Ceftriaxone Sodium 2000 mg/ Sodium Chloride 50 ml @ 100 mls/hr ONCE ONCE IV 02/17/18 20:45 02/17/18 21:14 DC 02/17/18 21:15 100 MLS/HR Vital Signs/I&O 02/17/18 02/17/18 02/17/18 02/17/18 19:50 20:34 21:15 21:35 Temp 101.0 99.8 99.8 Pulse 123 119 118 120 Resp 26 22 20 26 B/P (MAP) 129/115 (120) 110/99 (103) 120/76 (91) 120/72 Pulse Ox 93 94 96 96 O2 Delivery Room Air Room Air Nasal Cannula Nasal Cannula O2 Flow Rate 2.00 2.00 Capillary Refill : Less Than 3 Seconds Blood Pressure Mean: 120 Progress Note : Time: 19:30 Progress Note Initial evaluation completed, patient evaluated by Dr. Abdi well. Sepsis workup started. Normal saline 1 L IV. Tylenol 650 mg for temp 101. Patient tachycardia 120s. 2014 UA shows large bacteria, urine and Bates dark yellow with milky appearance. 2029 temp 98.9. Continues to be tachycardia 110-120s. 2044 Rocephin 2 g IV, second liter normal saline started. SaO2 92-94%, placed on oxygen 2 L per nasal cannula, SaO2 95% or higher. Heart rate continues to be 110-120. [address] Kulkarni per phone, agreed to admit patient medicaltelemetry for UTI and sepsis. Discussed these findings with the patient and his father they agreed with this treatment plan. ECG Initial ECG Impression Date: Feb 17, 2018 Initial ECG Impression Time: 19:40 Initial ECG Rate: 129 Initial ECG Rhythm: S.Tach Initial ECG Intervals: Normal Initial ECG Intervals GA 110, QRS T 92, QT 300, QTC 440. Taylor P 53, QRS 19 T 25. No elevation or depression noted. Initial ECG Impression: Normal Initial ECG Comparisson: Unchanged Comment Reviewed with Dr. Abdi, concurred with interpretation. Departure Impression Primary Impression: UTI (urinary tract infection) Qualified Codes: N30.00 - Acute cystitis without hematuria Additional Impressions: Tachycardia Sepsis Qualified Codes: A41.9 - Sepsis, unspecified organism Disposition: ADMITTED INPATIENT Condition: Stable Admissions Decision to Admit Reason: Admit from ER (General) Decision to Admit/Date: Feb 17, 2018 Time/Decision to Admit Time: 21:15 Departure-Patient Inst. Referrals: [facility] [place] ([place]/Family) Primary Care Physician Copy Copies To 1: JOAO KULKARNI MD, AMY ARNP Feb 17, 2018 20:29
[2018-02-17 20:34] VITALS: BP 110/99
[2018-02-17] MEDS ORDERED: cefTRIAXone INJECTION 2,000 MG in NS (IVPB) 50 ML IV ONE (20:45)
--- NOTE | 2018-02-17 20:47 | Diagnostic Imaging Report ---
INDICATION: Tachycardia EXAMINATION: Chest 02/17/2018 COMPARISON: 08/26/2017 FINDINGS: Low lung volumes noted. The heart is slightly prominent but stable. Bibasilar densities likely superimposed soft tissues. Atelectasis less likely. No significant effusions or pneumothorax. Pulmonary vasculature is slightly prominent but most likely due to the low lung volumes. IMPRESSION: 1. Findings described above very similar to previous. See above discussion. Dictated by: Dictated on workstation # [id number]
[2018-02-17 21:15] VITALS: BP 120/76
[2018-02-18] VITALS (7 sets, daily range): BP systolic 136–163; BP diastolic 83–98
[2018-02-18] MEDS ORDERED: NS (IVPB) 100 ML ONE (00:17)
[2018-02-18] MEDS ORDERED: 1/2 NS IV SOLUTION 1,000 ML IV ONE (00:18)
[2018-02-18] MEDS ORDERED: cefTRIAXone 2 GM (ROCEPHIN) VIAL ONE (00:18)
--- OUTSIDE RECORDS SUMMARY | 2018-02-18 00:46 | XMS REPORT ---
Author Author JOAO KULKARNI [facility] Address [address] [place] [address] Care Team Providers Care Unit Coordinator Name Role Phone JOAO KULKARNI Unavailable PROBLEMS Type Condition ICD9-CM Code [id number] Code Onset Dates Condition Status SNOMED Code Problem Major depressive disorder, recurrent episode, moderate 296.32 Active 36423044 Problem Mental retardation F79 Active 87594793 Problem Major depressive disorder, recurrent episode, mild 296.31 Active 58431193 Problem Hyperlipidemia, unspecified hyperlipidemia type E78.5 Active 98526326 Problem Unspecified otalgia 388.70 Active 29914243 Problem Body mass index (BMI) of 40.0-44.9 in adult Z68.41 Active 275051284 Problem Wheezing 786.07 Active 34857956 Problem Encounter for long-term (current) use of other medications V58.69 Active 449184689 Problem Major depression, recurrent F33.9 Active 12043716 Problem Obsessive compulsive disorder F42 Active 805170149 Problem Morbid (severe) obesity due to excess calories E66.01 Active 62456026866105 Problem Major depressive disorder, recurrent episode, in partial remission F33.41 Active 72117219 Problem Moderate mental retardation 318.0 Active 08565108 Problem Mild mental retardation 317 Active 32012956 Problem Acute suppurative otitis media without spontaneous rupture of eardrum 382.00 Active 81648132 Problem Dysfunction of Eustachian tube 381.81 Active 25880255 Problem Generalized anxiety disorder 300.02 Active 42015368 Problem Anxiety state, unspecified 300.00 Active 720960675 Problem Depressive disorder, not elsewhere classified 311 Active 52560379 Problem Unspecified psychosis 298.9 Active 01518218 Problem Obsessive-compulsive disorders 300.3 Active 031547591 Problem Unspecified episodic mood disorder 296.90 Active [id number] ALLERGIES No Information ENCOUNTERS Encounter Location Date Diagnosis [facility] [address] [facility] [id number] [address] Feb, [facility] [address] [address] Jan, [facility] [id number] [place] [address]- 3557 Jan, Major depressive disorder, recurrent episode, in partial remission F33.41 [place] [id number] [place] [address] 6[address]- 6057 Dec, Body mass index (BMI) of 40.0-44.9 in adult Z68.41 ; Hyperglycemia R73.9 and Hyperlipidemia, unspecified hyperlipidemia type E78.5 [place] [id number] [place] [address] 82196- 7981 November, Major depressive disorder, recurrent episode, in partial remission F33.41 ; Mental retardation F79 ; Obsessive compulsive disorder F42 and BMI 50.0-59.9, adult Z68.43 [place] [id number] [place] [address]85- 1426 Oct, [facility] [id number] [place] [address]9438 -[address]367 Jul, Acute nasopharyngitis J00 and Vomiting, intractability of vomiting not specified, presence of nausea not specified, unspecified vomiting type R11.10 [place] [id number] [place] [address]76- 0534 Jul, BMI 45.0-49.9, adult Z68.42 ; Major depressive disorder, recurrent episode, in partial remission F33.41 ; Mental retardation F79 and Obsessive compulsive disorder F42 [place] [id number] [place] [address] 38084- 8370 Jul, High risk medication use Z79.899 [place] [id number] [place] [address] 29855- 2206 Jun, Morbid (severe) obesity due to excess calories E66.01 ; Body mass index (BMI) of 40.0-44.9 in adult Z68.41 ; Mental retardation F79 ; Elevated blood pressure reading R03.0 ; Screening for diabetes mellitus (DM) Z13.1 and Screening for lipid disorders Z13.220 [facility] [address] [address] 13 May, 2017 High risk medication use Z79.899 ; Major depressive disorder , recurrent episode, in partial remission F33.41 ; Mental retardation F79 and Obsessive compulsive disorder F42 [facility] [address] [address] 85[address] May, [facility] [id number] [address] Apr, [address] [id number] [id number] Mar, [facility] [address] [address] 1030 Jan, Major depression, recurrent F33.9 ; Mental retardation F79 and Obsessive compulsive disorder F42 [facility] [id number] [address] 3727 November, Major depression, recurrent F33.9 and Obsessive compulsive disorder F42 [facility] [id number] [address]- 9021 Sep, [facility] [id number] [address]- 4484 Jun, Obsessive compulsive disorder F42 ; Mental retardation F79 and Major depressive disorder, recurrent episode, in partial remission F33.41 [facility] [id number] [address]- 1320 Apr, [facility] [address] [address]- 8758 Apr, Major depression, recurrent F33.9 ; Obsessive compulsive disorder F42 and Mental retardation F79 [facility] [id number] [address] 3087 Jan, [facility] [address] [address]- 2964 Jan, Major depression, recurrent F33.9 ; Obsessive compulsive disorder F42 and Mental retardation F79 [facility] [id number] [place] [address]- 3577 Dec, [facility] [address] [address]- 2641 November, [facility] [address] [address]- 9810 November, [facility] [id number] [place] [address]- 0676 Oct, [facility] [id number] [place] [address]- 6541 Oct, Obsessive compulsive disorder F42 ; Major depression, recurrent F33.9 and Mental retardation F79 [facility] [address] [address]- 2[address] Sep, [facility] [id number] [place] [address]- 2536 Aug, [facility] [address] [address]- 5377 Aug, [facility] [address] [address]- 5054 Aug, [facility] [address] [address]- 6625 Jul, [facility] [address] [address]- 5081 Jul, [facility] [address] [address]- 0625 Jul, [facility] [id number] [address]- 4169 Jun, Obsessive compulsive disorder F42 ; Major depression, recurrent F33.9 and Mental retardation F79 [facility] [address] [address]- 8677 Jun, [facility] [id number] 3436 Jun, [facility] [address] [address]- 9256 May, [facility] [id number] [place] [address]99452- 2710 15 Apr, 2015 [facility] [address] [address]- 2035 30 Mar, 2015 Generalized anxiety disorder 300.02 and Major depressive disorder, recurrent episode, mild 296.31 [facility] [address] [address]- 7253 14 Mar, 2015 [facility] [id number] [place] [address] 83256- 1250 13 Feb, 2015 [facility] [address] [address]- 3881 13 Jan, 2015 [facility] [address] [address]- 8510 10 Dec, 2014 Generalized anxiety disorder 300.02 and Depressive disorder , not elsewhere classified 311 [facility] [address] [address]- 3281 14 Oct, 2014 [facility] [address] [address]- 4023 13 Oct, 2014 [facility] [address] [address]- 8262 11 Sep, 2014 [facility] [address] [address] Sep, [facility] [address] [address]- 2653 12 Jun, 2014 [facility] [id number] [place] [address]- 0067 Jun, [facility] [place] [facility] [address] [id number] [place] [address]- 9965 May, [facility] [place] [facility] [address] [id number] [place] [address] May, [facility] [place] [facility] [address] [id number] [place] [address]- 2016 May, [facility] [place] [facility] [address] [id number] [place] [address]- 8413 Apr, [facility] [place] [facility] [address] [id number] [place] [address]- 6743 Apr, [facility] [place] [facility] [address] [id number] [place] [address]- 1168 Feb, [facility] [place] [facility] [address] [id number] [place] [address]- 2414 Jan, [facility] [place] [facility] [address] [id number] [place] [address]- 4670 Jan, [facility] [place] [facility] [address] [id number] [place] [address]- 1589 Dec, [facility] [place] [facility] [address] [id number] [place] [address]- 4144 Dec, [facility] [place] [facility] [address] [id number] [place] [address]- 2826 Oct, [facility] [place] [facility] [address] [id number] [place] [address]- 5538 Oct, [facility] [place] [facility] [address] [id number] [place] [address]- 1089 Oct, [facility] [place] [facility] [address] [id number] [place] [address]- 7283 Oct, [facility] [place] [facility] [address] [id number] [place] [address]- 9902 Sep, [facility] [place] [facility] [address] [id number] [place] [address]- 2191 Sep, [facility] [place] [facility] [address] [id number] [place] [address]- 6806 Sep, [facility] [place] [facility] [address] [id number] [place] [address]- 5610 Sep, [facility] [place] [facility] [address] [id number] [place] [address]- 0950 Aug, [facility] [place] [facility] [address] [id number] [place] [address]- 2748 Aug, [facility] [place] [facility] [address] [id number] [place] [address]- 4352 Aug, [facility] [place] [facility] [address] [id number] [place] [address]- 9557 Aug, [facility] [place] [facility] [address] [id number] [place] [address]- 3734 Jul, [facility] [place] [facility] [address] [id number] [place] [address]- 7327 Jul, [facility] [place] [facility] [address] [id number] [place] [address]- 5535 Jul, [facility] [place] [facility] [address] [id number] [place] [address]- 3451 Jul, [facility] [place] [facility] [address] [id number] [place] [address]- 7397 Jul, [facility] [place] [facility] [address] [id number] [place] [address]- 8154 Jul, [facility] [place] [facility] [address] [id number] [place] [address]- 7725 Apr, [facility] [place] [facility] [address] [id number] [place] [address]- 6197 Apr, [facility] [place] [facility] [address] [id number] [place] [address]- 7742 24 Apr, 2012 [facility] [place] [facility] [address] [id number] [place] [address]- 4446 24 Apr, 2012 [facility] [place] [facility] [address] [id number] [place] [address]- 9714 21 Apr, 2012 [facility] [place] [facility] [address] [id number] [place] [address]- 0762 21 Apr, 2012 [facility] [place] [facility] [address] [id number] [place] [address]- 0506 18 Apr, 2012 [facility] [place] [facility] [address] [id number] [place] [address]- 2865 18 Apr, 2012 [facility] [place] [facility] [address] [id number] [place] [address]- 7003 17 Apr, 2012 [facility] [place] [facility] [address] [id number] [place] [address]- 7990 17 Apr, 2012 [facility] [place] [facility] [address] [id number] [place] [address]- 1948 16 Apr, 2012 [facility] [place] [facility] [address] [id number] [place] [address]- 5677 16 Apr, 2012 [facility] [place] [facility] [address] [id number] [place] [address]- 3110 16 Apr, 2012 [facility] [place] [facility] [address] [id number] [place] [address]- 6270 16 Oct, 2012 [facility] [place] [facility] [address] [id number] [address]- 5229 18 Sep, 2012 [facility] [place] [facility] [address] [id number] [place] [address]- 6141 17 Sep, 2012 [facility] [place] [facility] [address] [id number] [place] [address]- 0682 16 Sep, 2012 [facility] [place] [facility] [address] [id number] [place] [address]- 2842 13 Sep, 2012 [facility] [place] [facility] [address] [id number] [place] [address]- 2588 Feb, [facility] [place] [facility] [address] [id number] [place] [address]- 2537 Feb, [facility] [place] [facility] [address] [id number] [place] [address]- 0580 Jan, [facility] [place] [facility] [address] [id number] [place] [address]- 3335 Jan, [facility] [place] [facility] [address] [id number] [place] [address]- 6338 Jan, [facility] [place] [facility] [address] [id number] [place] [address]- 1258 Jan, [facility] [place] [facility] [address] [id number] [place] [address]- 3716 Jan, [facility] [place] [facility] [address] [id number] [place] [address]- 9392 Jan, [facility] [place] [facility] [address] [id number] [place] [address]- 6845 Jan, [facility] [place] [facility] [address] [id number] [place] [address]- 0556 Jan, [facility] [place] [facility] [address] [id number] [place] [address]- 8569 Dec, [facility] [place] [facility] [address] [id number] [place] [address]- 3325 Dec, [facility] [place] [facility] [address] [id number] [place] [address]- 8052 Dec, [facility] [place] [facility] [address] [id number] [place] [address]- 0328 Dec, [facility] [place] [facility] [address] [id number] [place] [address]- 9219 Dec, [facility] [place] [facility] [address] [id number] [place] [address]- 3728 Dec, [facility] [address] [id number] [place] [address]- 8493 Dec, [facility] [place] [facility] [address] [id number] [place] [address]- 2158 Dec, [facility] [place] [facility] [address] [id number] [place] [address]- 0046 Dec, [facility] [place] [facility] [address] [id number] [place] [address]- 2411 November, [facility] [place] [facility] [address] [id number] [place] [address]- 1012 Oct, [facility] [place] [facility] [address] [id number] [place] [address]- 4992 Oct, [facility] [place] [facility] [address] [id number] [place] [address]- 2067 Oct, [facility] [place] [facility] [address] [id number] [place] [address]- 0844 Oct, [facility] [place] [facility] [address] [id number] [place] [address]- 0561 Oct, [facility] [place] [facility] [address] [id number] [place] [address]- 8794 Oct, [facility] [place] [facility] [address] [id number] [place] [address]- 3592 Aug, [facility] [place] [facility] [address] [id number] [place] [address]- 0433 Aug, [facility] [place] [facility] [address] [id number] [place] [address]- 1071 Jul, [facility] [place] [facility] [address] [id number] [place] [address]- 8106 Jul, [facility] [place] [facility] [address] [id number] [place] [address]- 1317 Jul, [facility] [place] [facility] [address] [id number] [place] [address]- 1468 Jul, [facility] [address] [id number] [place] [address]- 9485 Jul, [facility] [address] [id number] [place] [address]- 7841 Jul, [facility] [address] [id number] [place] [address]- 4931 Jul, [facility] [address] [id number] [place] [address]- [address] Jun, [facility] [address] [id number] [place] 65[address] Jun, [facility] [address] [id number] [place] [address]- 9016 Jun, [facility] [address] [id number] [place] [address]- 8116 Jun, [facility] [address] [id number] [place] [address]- 8126 Jun, [facility] [address] [id number] [place] [address]- 6167 Apr, [facility] [address] [id number] [place] [address]- 2360 Apr, [facility] [address] [id number] [place] [address]- 8159 Apr, [facility] [address] [id number] [place] [address]- 6117 Mar, [facility] [place] [facility] [address] [id number] [place] [address]- 2895 Feb, [facility] [address] [id number] [place] [address]- 7601 Jan, [facility] [address] [id number] [place] [address]- 5170 Jan, [facility] [address] [facility] [id number] [address]- 0699 Dec, [facility] [address] [facility] [id number] [place] [address]- 9776 November, [facility] [address] [facility] [id number] [place] [address]- 5586 Oct, [facility] [address] [facility] [id number] [place] [address]- 5836 Sep, [facility] [address] [facility] [id number] [place] [address]- 1938 Sep, [facility] [address] [facility] [id number] [place] [address]- 6726 Aug, [facility] [address] [facility] [id number] [place] [address]- 3206 Aug, [facility] [address] [facility] [id number] [place] [address]- 5676 Aug, [facility] [address] [facility] [id number] [place] [address]- 0808 Jul, [facility] [address] [facility] [id number] [place] [address]- 1816 Jul, [facility] [address] [facility] [id number] [place] [address]- 1546 Jun, [facility] [address] [facility] [id number] [place] [address]- 9776 Jun, [facility] [address] [facility] [id number] [address]- 5396 May, [facility] [address] [facility] [id number] [place] [address]- 7506 Apr, [facility] [address] [facility] [id number] [place] [address]- 0446 Apr, IMMUNIZATIONS No Known Immunizations SOCIAL HISTORY Never Assessed REASON FOR VISIT refill PLAN OF CARE VITAL SIGNS MEDICATIONS Medication Instructions Dosage Frequency Start Date End Date Duration Status Singulair 10 mg Orally Once a day 1 tablet in the evening 24h Active RESULTS No Results PROCEDURES No Known procedures INSTRUCTIONS MEDICATIONS ADMINISTERED No Known Medications MEDICAL (GENERAL) HISTORY Type Description Date Medical History GERD Surgical History cholecystectomy 2013 Hospitalization History [facility] [place]- Chest Pain 08/26/2017
--- OUTSIDE RECORDS SUMMARY | 2018-02-18 00:48 | XMS REPORT ---
Author Author JOAO KULKARNI [facility] Address [address] [place] [address] Care Team Providers Care Telecommunications Professional Name Role Phone JOAO KULKARNI Unavailable PROBLEMS Type Condition ICD9-CM Code FWX43-VG Code Onset Dates Condition Status SNOMED Code Problem Unspecified episodic mood disorder 296.90 Active 048245335 Problem Major depressive disorder, recurrent episode, mild 296.31 Active 53227443 Problem Major depressive disorder, recurrent episode, moderate 296.32 Active 42556819 Problem Morbid (severe) obesity due to excess calories E66.01 Active 64342398542311 Problem Wheezing 786.07 Active 90942654 Problem Body mass index (BMI) of 40.0-44.9 in adult Z68.41 Active 805729400 Problem Encounter for long-term (current) use of other medications V58.69 Active 343750048 Problem Obsessive compulsive disorder F42 Active 007511704 Problem Mental retardation F79 Active 27391177 Problem Major depressive disorder, recurrent episode, in partial remission F33.41 Active 70411961 Problem Major depression, recurrent F33.9 Active 90500228 Problem Dysfunction of Eustachian tube 381.81 Active 57200035 Problem Moderate mental retardation 318.0 Active 32876724 Problem Unspecified otalgia 388.70 Active 34443715 Problem Acute suppurative otitis media without spontaneous rupture of eardrum 382.00 Active 53168562 Problem Obsessive-compulsive disorders 300.3 Active 245977950 Problem Generalized anxiety disorder 300.02 Active 77299863 Problem Mild mental retardation 317 Active 89705234 Problem Anxiety state, unspecified 300.00 Active 925132436 Problem Depressive disorder, not elsewhere classified 311 Active 53062214 Problem Unspecified psychosis 298.9 Active 58089832 ALLERGIES No Information ENCOUNTERS Encounter Location Date Diagnosis [facility] [address] [facility] [id number], [place] [address] Jan, [facility] [id number] [place] [address]- 6468 Dec, [place] [id number] [place] [address] 6[address]40- [address]82 November, Major depressive disorder, recurrent episode, in partial remission F33.41 ; Mental retardation F79 ; Obsessive compulsive disorder F42 and BMI 50.0-59.9, adult Z68.43 [place] [id number] [place] [address] 69648- 8004 Oct, [facility] [id number] [place] [address]05 -[address]58 Jul, Acute nasopharyngitis J00 and Vomiting, intractability of vomiting not specified, presence of nausea not specified, unspecified vomiting type R11.10 [place] [id number] [place] [address] 20297- 1760 Jul, BMI 45.0-49.9, adult Z68.42 ; Major depressive disorder, recurrent episode, in partial remission F33.41 ; Mental retardation F79 and Obsessive compulsive disorder F42 [place] [id number] [place] [address]97- 5461 Jul, High risk medication use Z79.899 [place] [address] [place] [address] 8[address]01- 6720 Jun, Morbid (severe) obesity due to excess calories E66.01 ; Body mass index (BMI) of 40.0-44.9 in adult Z68.41 ; Mental retardation F79 ; Elevated blood pressure reading R03.0 ; Screening for diabetes mellitus (DM) Z13.1 and Screening for lipid disorders Z13.220 [place] [id number] [place] [address] 33094- 3070 13 May, 2017 High risk medication use Z79.899 ; Major depressive disorder , recurrent episode, in partial remission F33.41 ; Mental retardation F79 and Obsessive compulsive disorder F42 [place] [id number] [place] [address] 77378- 3722 May, [facility] [id number] [address] Apr, [facility] [id number] [id number] Mar, [facility] [address] [address] Jan, Major depression, recurrent F33.9 ; Mental retardation F79 and Obsessive compulsive disorder F42 [facility] [id number] [address] November, Major depression, recurrent F33.9 and Obsessive compulsive disorder F42 [facility] [address] [address] Sep, [facility] [address] [address] Jun, Obsessive compulsive disorder F42 ; Mental retardation F79 and Major depressive disorder, recurrent episode, in partial remission F33.41 [facility] [address] [address] Apr, [facility] [address] [address] 5[address] Apr, Major depression, recurrent F33.9 ; Obsessive compulsive disorder F42 and Mental retardation F79 [facility] [address] [address] 08[address] Jan, [facility] [address] [address] 4[address] Jan, Major depression, recurrent F33.9 ; Obsessive compulsive disorder F42 and Mental retardation F79 [facility] [id number] [address] 9237 Dec, [facility] [id number] [address] November, [facility] [id number] [address] November, [facility] [address] [place] [address] Oct, [facility] [address] [address] 06 Oct, 2015 Obsessive compulsive disorder F42 ; Major depression, recurrent F33.9 and Mental retardation F79 [facility] [id number] [address] Sep, [facility] [address] [place] [address] 0[address] 17 Aug, 2015 [facility] [id number] [place] [address] 12011- 2501 Aug, [facility] [id number] [address] 1126 Aug, [facility] [address] [address]- 1525 Jul, [facility] [address] [address]- 8[address] Jul, [facility] [address] [address]- 9167 Jul, [facility] [address] [address]- 45[address] Jun, Obsessive compulsive disorder F42 ; Major depression, recurrent F33.9 and Mental retardation F79 [facility] [address], [place] [address]- 8998 Jun, [facility] [address] [address]- 6976 Jun, [facility] [address] [address]- 6[address] May, [facility] [address] [address]- 4007 15 Apr, 2015 [facility] [address] [facility] [id number] [address] 30 Mar, 2015 Generalized anxiety disorder 300.02 and Major depressive disorder, recurrent episode, mild 296.31 [facility] [address], [place] [address]- 30[address] 14 Mar, 2015 [facility] [id number] [place] [address] 11221- 6809 13 Feb, 2015 [facility] [id number] [address]- 359[address] 13 Jan, 2015 [facility] [id number] [place] [address] 9[address]557- 5636 10 Dec, 2014 Generalized anxiety disorder 300.02 and Depressive disorder , not elsewhere classified 311 [facility] [address] [address]- 0026 14 Oct, 2014 [facility] [address] [address]- 5[address] 13 Oct, 2014 [facility] [address] [address]- 1818 11 Sep, 2014 [facility] [address], [place] [address]- 0339 11 Sep, 2014 [facility] [address] [address]- 9367 12 Jun, 2014 [facility] [address] [address]- 7399 Jun, [facility] [address] [address]- 2543 May, [facility] [id number] [place] [address] 980133- 5593 May, [facility] [address], [place] [address]- 0154 May, [facility] [id number] [place] [address]- 5911 Apr, [facility] [place] [facility] [address] [id number] [place] [address]- 5229 Apr, [facility] [place] [facility] [address] [id number] [place] [address] Feb, [facility] [place] [facility] [address] [id number] [place] [address]- 7150 Jan, [facility] [place] [facility] [address] [id number] [place] [address]- 4675 Jan, [facility] [place] [facility] [address] [id number] [place] [address]- 3715 Dec, [facility] [place] [facility] [address] [id number] [place] [address]- 3828 Dec, [facility] [place] [facility] [address] [id number] [place] [address]- 0572 Oct, [facility] [place] [facility] [address] [id number] [place] [address]- 1636 Oct, [facility] [place] [facility] [address] [id number] [place] [address]- 5539 Oct, [facility] [place] [facility] [address] [id number] [place] [address]- 1004 Oct, [facility] [place] [facility] [address] [id number] [place] [address]- 2038 Sep, [facility] [place] [facility] [address] [id number] [place] [address]- 4333 Sep, [facility] [place] [facility] [address] [id number] [place] [address]- 2751 Sep, [facility] [place] [facility] [address] [id number] [place] [address]- 4694 Sep, [facility] [place] [facility] [address] [id number] [place] [address]- 6022 Aug, [facility] [place] [facility] [address] [id number] [place] [address]- 6649 Aug, [facility] [place] [facility] [address] [id number] [place] [address]- 6925 Aug, [facility] [place] [facility] [address] [id number] [place] [address]- 8285 Aug, [facility] [place] [facility] [address] [id number] [place] [address]- 0176 Jul, [facility] [place] [facility] [address] [id number] [place] [address]- 9031 Jul, [facility] [place] [facility] [address] [id number] [place] [address]- 9075 Jul, [facility] [place] [facility] [address] [id number] [place] [address]- 3929 Jul, [facility] [place] [facility] [address] [id number] [place] [address]- 2147 Jul, [facility] [place] [facility] [address] [id number] [place] [address]- 7965 Jul, [facility] [place] [facility] [address] [id number], [place] [address]- 7899 Apr, [facility] [place] [facility] [address] [id number], [place] [address]- 1474 Apr, [facility] [place] [facility] [address] [id number], [place] [address]- 6606 Apr, [facility] [place] [facility] [address] [id number] [place] [address]- 6914 Apr, [facility] [place] [facility] [address] [id number] [place] [address]- 8821 Apr, [facility] [place] [facility] [address] [id number], [place] [address]- 3499 Apr, [facility] [place] [facility] [address] [id number], [place] [address]- 8204 18 Apr, 2012 [facility] [place] [facility] [address] [id number] [place] [address]- 3491 18 Apr, 2012 [facility] [place] [facility] [address] [id number] [place] [address]- 9522 17 Apr, 2012 [facility] [place] [facility] [address] [id number] [place] [address]- 0093 17 Apr, 2012 [facility] [place] [facility] [address] [id number] [place] [address]- 9830 16 Apr, 2012 [facility] [place] [facility] [address] [id number] [place] [address]- 7119 16 Apr, 2012 [facility] [place] [facility] [address] [id number] [place] [address]- 9890 16 Apr, 2012 [facility] [place] [facility] [address] [id number] [place] [address]- 2518 16 Apr, 2012 [facility] [place] [facility] [address] [id number] [place] [address]- 2783 18 Mar, 2012 [facility] [place] [facility] [address] [id number] [place] [address]- 0733 17 Mar, 2012 [facility] [place] [facility] [address] [id number] [place] [address]- 9012 16 Mar, 2012 [facility] [place] [facility] [address] [id number] [place] [address]- 5178 13 Mar, 2013 [facility] [place] [facility] [address] [id number] [place] [address]- 8672 Feb, [facility] [place] [facility] [address] [id number] [place] [address]- 6914 Feb, [facility] [place] [facility] [address] [id number] [place] [address]- 4382 Jan, [facility] [place] [facility] [address] [id number] [place] [address]- 2153 Jan, [facility] [place] [facility] [address] [id number] [place] [address]- 8839 Jan, [facility] [place] [facility] [address] [id number] [place] [address]- 5052 Jan, [facility] [place] [facility] [address] [id number] [place] [address]- 1004 Jan, [facility] [place] [facility] [address] [id number] [place] [address]- 9168 Jan, [facility] [place] [facility] [address] [id number] [place] [address]- 9366 Jan, [facility] [place] [facility] [address] [id number] [place] [address]- 5255 Jan, [facility] [place] [facility] [address] [id number] [place] [address]- 1741 Dec, [facility] [place] [facility] [address] [id number] [place] [address]- 4595 Dec, [facility] [place] [facility] [address] [id number] [place] [address]- 6232 Dec, [facility] [place] [facility] [address] [id number] [place] [address]- 9796 Dec, [facility] [place] [facility] [address] [id number] [place] [address]- 4592 Dec, [facility] [place] [facility] [address] [id number] [place] [address]- 4077 Dec, [facility] [place] [facility] [address] [id number] [place] [address]- 0144 Dec, [facility] [place] [facility] [address] [id number] [place] [address]- 6793 Dec, [facility] [place] [facility] [address] [id number] [place] [address]- 1561 Dec, [facility] [place] [facility] [address] [id number] [place] [address]- 7529 November, [facility] [address] [id number] [place] [address]- 1588 Oct, [facility] [place] [facility] [address] [id number] [place] [address]- 5347 Oct, [facility] [place] [facility] [address] [id number] [place] [address]- 4938 Oct, [facility] [place] [facility] [address] [id number] [place] [address]- 7501 Oct, [facility] [address] [id number] [place] [address]- 5008 Oct, [facility] [place] [facility] [address] [id number] [place] [address]- 1515 Oct, [facility] [place] [facility] [address] [id number] [place] [address]- 3667 Aug, [facility] [place] [facility] [address] [id number] [place] [address]- 5459 Aug, [facility] [place] [facility] [address] [id number] [place] [address]- 4524 Jul, [facility] [place] [facility] [address] [id number] [place] [address]- 1073 Jul, [facility] [place] [facility] [address] [id number] [place] [address]- 2072 Jul, [facility] [place] [facility] [address] [id number] [place] [address]- 0989 Jul, [facility] [place] [facility] [address] [id number] [place] [address]- 3478 Jul, [facility] [place] [facility] [address] [id number] [place] [address]- 7765 Jul, [facility] [place] [facility] [address] [id number] [place] [address]- 7062 Jul, [facility] [place] [facility] [address] [id number] [place] 3606 Jun, [facility] [place] [facility] [address] [id number] [place] [address]- 8683 Jun, [facility] [place] [facility] [address] [id number] [place] [address]- 1180 Jun, [facility] [place] [facility] [address] [id number] [place] [address]- 4578 Jun, [facility] [place] [facility] [address] [id number] [place] [address]- 8697 Jun, [facility] [place] [facility] [address] [id number] [place] [address]- 7102 Apr, [facility] [place] [facility] [address] [id number] [place] [address]- 9644 Apr, [facility] [place] [facility] [address] [id number] [place] [address]- 0021 Apr, [facility] [place] [facility] [address] [id number] [place] [address]- 9928 Mar, [facility] [place] [facility] [address] [id number] [place] [address]- 2606 Feb, [facility] [place] [facility] [address] [id number] [place] [address]- 2637 Jan, [facility] [place] [facility] [address] [id number] [place] [address]- 9219 Jan, [facility] [place] [facility] [address] [id number] [place] [address]- 2512 Dec, [facility] [place] [facility] [address] [id number] [place] [address]- 0358 November, [facility] [place] [facility] [address] [id number] [place] [address] Oct, [facility] [place] [facility] [address] [id number] [place] [address]- 9706 Sep, [facility] [address] [facility] [id number], [place] [address]- 8282 Sep, [facility] [address], [place] [address]- 7936 Aug, [facility] [address], [place] [address]- 9286 Aug, [facility] [address], [place] [address]- 6976 Aug, [facility] [address], [place] [address]- 3949 Jul, [facility] [address], [place] [address]- 5846 Jul, [facility] [address], [place] [address]- 3026 Jun, [facility] [address], [place] [address]- 7169 Jun, [facility] [address], [place] [address]- 9202 May, [facility] [address], [place] [address]- 9598 Apr, [facility] [id number], [place] [address]- 6486 Apr, IMMUNIZATIONS No Known Immunizations SOCIAL HISTORY Never Assessed REASON FOR VISIT Refill request PLAN OF CARE VITAL SIGNS MEDICATIONS Medication Instructions Dosage Frequency Start Date End Date Duration Status Omeprazole 20 mg Orally Once a day 1 capsule 24h Apr, 30 day(s ) Active RESULTS No Results PROCEDURES No Known procedures INSTRUCTIONS MEDICATIONS ADMINISTERED No Known Medications MEDICAL (GENERAL) HISTORY Type Description Date Medical History GERD Surgical History cholecystectomy 2013
[2018-02-18] MEDS ORDERED: fentaNYL INJECTION 100 MCG/2 ML AMP IV PRN (01:15)
[2018-02-18] MEDS ORDERED: CATHETER FLUSH 10 ML SYR IV PRN (01:15)
[2018-02-18] MEDS: 1/2 NS IV SOLUTION 1,000 ML IV SCH ×3 (01:56→16:09)
[2018-02-18] MEDS ORDERED: RT-ALBUTEROL SULF 2.5 MG/3 ML PRE-MIX VIAL INH PRN (03:45)
[2018-02-18] MEDS: CATHETER FLUSH 10 ML SYR IV SCH ×3 (06:41→20:27)
[2018-02-18] MEDS ORDERED: LURA60TA2 PO (08:33)
[2018-02-18] MEDS ORDERED: PROP20TA5 PO (08:33)
[2018-02-18] MEDS ORDERED: CLON0.5T13 PO (08:33)
[2018-02-18] MEDS ORDERED: MONT10TA24 PO (08:33)
[2018-02-18] MEDS ORDERED: OMEP20CA12 PO (08:33)
--- NOTE | 2018-02-18 11:19 | History & Physicial (CHS) ---
HPI History of Present Illness: Pt is a 37 yo male who presented to the ED for diaphoresis and tremors. His primary healthcare representative, his father, brought the pt to the [facility] and they referred the pt to ED. Pt is unable to give a history, as he is mentally disabled. Father was present to give a hx in the ED but was not available when I went to examine the pt. According to the ED note, the pt started having an increase from his baseline essential tremor 4 days ago. The father also noticed some gross blood in the toilet and in the pt's undergarments. Pt's last colonoscopy was 10 y ago at which time he had a polyp removed. The EKG performed in the ED was not significant for ST changes or otherwise abnormal. His urine showed UTI, combined w/ fever and tachycardia he was admitted to the medical floor for possible sepsis. Source: RN/ Exam Limitations: other (Pt w/ mental disability, not currently responding to questions) Date seen by provider: Feb 18, 2018 Time Seen by Provider: 11:00 Attending Physician Brooklynn Patel MD [facility] [place] Consult Date of Admission Feb 17, 2018 at 21:22 Home Medications Home Medications Reviewed patient Home Medication Reconciliation performed by pharmacy medication reconciliations drain technician and/or nursing. Patients Allergies have been reviewed. 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) Asthma Cardiac: Yes (History of pericarditis) 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, ESSENTIAL TREMORS) Developmental Disorder Genitourinary: No Gastrointestinal: Yes Gastroesophageal Reflux Musculoskeletal: No Endocrine: No (OBESITY) HEENT: No Cancer: No Psychosocial: Yes (mentally challenged, mood disorder) Integumentary: No Blood Disorders: No Family Medical History Significant Family History: Heart Disease Review of Systems (CHC) Constitutional: fever, other EENTM: no symptoms reported Respiratory: no symptoms reported Cardiovascular: other (tachycardia) Gastrointestinal: other (hematochezia) Genitourinary: no symptoms reported Musculoskeletal: no symptoms reported Skin: no symptoms reported Psychiatric/Neurological: See HPI, Tremors (increased from baseline) Reviewed Test Results Reviewed Test Results Lab Laboratory Tests Test 02/17/18 19:15 02/17/18 19:17 02/17/18 19:33 02/17/18 19:45 Range/Units Prothrombin Time 13.3 12.2-14.7 SEC INR Comment 1.0 0.8-1.4 Activated Partial Thromboplast Time 25 24-35 SEC Sodium Level 144 135-145 MMOL/L Potassium Level 3.8 3.6-5.0 MMOL/L Chloride Level 105 98-107 MMOL/L Carbon Dioxide Level 25 21-32 MMOL/L Anion Gap 14 5-14 MMOL/L Blood Urea Nitrogen 17 7-18 MG/DL Creatinine 1.07 0.60-1.30 MG/DL Estimat Glomerular Filtration Rate > 60 BUN/Creatinine Ratio 16 Glucose Level 124 H 70-105 MG/DL Calcium Level 10.2 H 8.5-10.1 MG/DL Total Bilirubin 0.8 0.1-1.0 MG/DL Aspartate Amino Transf (AST/SGOT) 34 5-34 U/L Alanine Aminotransferase (ALT/SGPT) 63 H 0-55 U/L Alkaline Phosphatase 53 40-136 U/L Troponin I < 0.30 <0.30 NG/ML Total Protein 7.8 6.4-8.2 GM/DL Albumin 4.6 H 3.2-4.5 GM/DL Glucometer 129 H 70-110 MG/DL White Blood Count 11.9 H 4.3-11.0 10^3/uL Red Blood Count 5.32 4.35-5.85 10^6/uL Hemoglobin 15.2 13.3-17.7 G/DL Hematocrit 46 40-54 % Mean Corpuscular Volume 87 80-99 FL Mean Corpuscular Hemoglobin 29 25-34 PG Mean Corpuscular Hemoglobin Concent 33 32-36 G/DL Red Cell Distribution Width 12.6 10.0-14.5 % Platelet Count 362 130-400 10^3/uL Mean Platelet Volume 10.1 7.4-10.4 FL Neutrophils (%) (Auto) 68 42-75 % Lymphocytes (%) (Auto) 19 12-44 % Monocytes (%) (Auto) 12 0-12 % Eosinophils (%) (Auto) 1 0-10 % Basophils (%) (Auto) 1 0-10 % Neutrophils # (Auto) 8.1 H 1.8-7.8 X 10^3 Lymphocytes # (Auto) 2.2 1.0-4.0 X 10^3 Monocytes # (Auto) 1.4 H 0.0-1.0 X 10^3 Eosinophils # (Auto) 0.2 0.0-0.3 10^3/uL Basophils # (Auto) 0.1 0.0-0.1 10^3/uL Lactic Acid Level 1.78 0.50-2.00 MMOL/L C-Reactive Protein High Sensitivity 0.66 H 0.00-0.50 MG/DL Urine Color YELLOW Urine Clarity CLEAR Urine pH 5 5-9 Urine Specific [place] 1.025 H 1.016-1.022 Urine Protein 2+ H NEGATIVE Urine Glucose (UA) NEGATIVE NEGATIVE Urine Ketones NEGATIVE NEGATIVE Urine Nitrite NEGATIVE NEGATIVE Urine Bilirubin NEGATIVE NEGATIVE Urine Urobilinogen 1 NORMAL MG/DL Urine Leukocyte Esterase 1+ H NEGATIVE Urine RBC (Auto) 1+ H NEGATIVE Urine RBC NONE /HPF Urine WBC 0-2 /HPF Urine Squamous Epithelial Cells RARE /HPF Urine Crystals NONE /LPF Urine Bacteria LARGE H /HPF Urine Casts NONE /LPF Urine Mucus NEGATIVE /LPF Urine Culture Indicated YES Physical Exam-(CHC) Physical Exam Vital Signs VS - Last 72 Hours, by Label 02/17/18 02/17/18 02/17/18 02/17/18 19:50 20:34 21:15 21:35 Temp 101.0 99.8 99.8 Pulse 123 119 118 120 Resp 26 22 20 26 B/P (MAP) 129/115 (120) 110/99 (103) 120/76 (91) 120/72 Pulse Ox 93 94 96 96 O2 Delivery Room Air Room Air Nasal Cannula Nasal Cannula O2 Flow Rate 2.00 2.00 02/17/18 02/18/18 02/18/18 02/18/18 21:35 00:00 00:01 04:00 Temp 98.7 99.6 Pulse 120 120 107 Resp 21 22 B/P (MAP) 150/91 (110) 163/98 (119) Pulse Ox 95 95 96 O2 Delivery Nasal Cannula Nasal Cannula Nasal Cannula O2 Flow Rate 2.00 2.00 2.00 02/18/18 02/18/18 02/18/18 07:00 07:13 08:00 Temp 98.1 Pulse 112 106 Resp 20 B/P (MAP) 136/83 (100) Pulse Ox 96 95 O2 Delivery Nasal Cannula Nasal Cannula O2 Flow Rate 2.00 2.00 Capillary Refill : Less Than 3 Seconds General Appearance: WD/WN, no apparent distress Eyes: Bilateral Eye Normal Inspection, Bilateral Eye PERRL, Bilateral Eye EOMI Neck: full range of motion, supple Respiratory: chest non-tender, lungs clear, normal breath sounds, no respiratory distress, no accessory muscle use Cardiovascular: no edema, no gallop, no JVD, no murmur, tachycardia Gastrointestinal: normal bowel sounds, non tender, soft Extremities: normal inspection, no pedal edema Neurologic/Psychiatric: alert, other (Increased tremor from baseline of all 4 extremities ) Skin: normal color, diaphoresis, other (hot to the touch) Assessment/Plan Assessment/Plan Admission Dx UTI and workup for sepsis Admission Status: Observation (1) Sepsis Status: Acute Assessment & Plan: Reassess VS after IVF and IV abx Qualifiers: Qualified Codes: A41.9 - Sepsis, unspecified organism (2) UTI (urinary tract infection) Status: Acute Assessment & Plan: IV cetriaxone started in ED Qualifiers: Qualified Codes: N30.00 - Acute cystitis without hematuria (3) Tachycardia Status: Acute Assessment & Plan: Reassess after IVF and IV abx Clinical Quality Measures DVT/VTE Risk/Contraindication: Risk Factor Score Per Nursin RFS Level Per Nursing on Admit: 4+=Very High CAMILLA [employer] STUDENT Feb 18, 2018 11:19
[2018-02-18] MEDS ORDERED: clonazePAM 0.5 MG (KlonoPIN) TAB PO PRN (11:45)
[2018-02-18] MEDS: ONDANSETRON 4 MG/2 ML (SDV) Z0FRAN IV PRN (16:18)
[2018-02-18] MEDS: ACETAMINOPHEN 325 MG TABLET PO PRN (16:18)
[2018-02-18] MEDS: MONTELUKAST 10 MG (SINGULAIR) TAB PO SCH (20:27)
[2018-02-18] MEDS: cefTRIAXone 2 GM/NS 50 ML IVPB IV SCH ×2 (20:27)
[2018-02-19] VITALS (7 sets, daily range): BP systolic 135–184; BP diastolic 66–103
[2018-02-19] MEDS: ACETAMINOPHEN 325 MG TABLET PO PRN ×2 (00:46→21:06)
[2018-02-19] MEDS: 1/2 NS IV SOLUTION 1,000 ML IV SCH ×4 (00:52→23:56)
--- NOTE | 2018-02-19 06:06 | Progress Note (SOAP) ---
Subjective Subjective/Events-last exam Pro is alert and resting in bed. He has just finished eating breakfast. He is MR and does nod appropriately answer questions. His father is not present in the room this morning. Review of Systems Date Seen by Provider: Feb 19, 2018 Time Seen by Provider: 08:15 Focused Exam Lactate Level 02/17/18 19:33: Lactic Acid Level 1.78 Objective Exam Last Set of Vital Signs Vital Signs Date Time Temp Pulse Resp B/P (MAP) Pulse Ox O2 Delivery O2 Flow Rate FiO2 02/19/18 04:15 98.6 109 20 149/66 (93) 94 Room Air 02/18/18 14:14 2.00 Capillary Refill : Less Than 3 Seconds I&O Intake and Output 02/19/18 00:00 Intake Total 4420 ml Output Total 2150 ml Balance 2270 ml Intake Oral 2520 ml IV Total 1900 ml Output Urine Total 2150 ml General: No Acute Distress Neck: Supple Lungs: Clear to Auscultation Heart: Regular Rate (With a rate of 117) Abdomen: Soft Skin: No Rashes, No Significant Lesion Results/Procedures Lab Microbiology 02/17/18 Blood Culture - Preliminary, Resulted No growth 02/17/18 Urine Culture - Final, Complete NO GROWTH Assessment/Plan Assessment/Plan Admission Dx 1. Sepsis 2. UTI 3. Tachycardia Assessment & Plan (1) Sepsis -Patient currently on IV fluids as well as ceftriaxone (2) urinary tract infection -Urine culture is pending. -Day number 2 of ceftriaxone (3) Tachycardia -Patient is not decompensated from a heart rate of 117. -The rate may be related to his overall infection -Cardiology was consulted by admitting attending. Clinical Quality Measures DVT/VTE Risk/Contraindication: Risk Factor Score Per Nursin RFS Level Per Nursing on Admit: 4+=Very High GEGE ANDERSON MD Feb 19, 2018 06:06
[2018-02-19 06:12] LABS: BASOPHILS % (AUTO) 0 % (0-10); EOSINOPHILS # (AUTO) 0.1 10^3/uL (0.0-0.3); EOSINOPHILS % (AUTO) 1 % (0-10); HEMATOCRIT 41 % (40-54); HEMOGLOBIN 13.6 G/DL (13.3-17.7); LYMPHOCYTES # (AUTO) 1.3 X 10^3 (1.0-4.0); LYMPHOCYTES % (AUTO) 14 % (12-44); MEAN CORPUSCULAR HEMOGLOBIN 29 PG (25-34); MEAN CORPUSCULAR HGB CONC 33 G/DL (32-36); MEAN CORPUSCULAR VOLUME 87 FL (80-99); MEAN PLATELET VOLUME 10.2 FL (7.4-10.4); MONOCYTES # (AUTO) 0.8 X 10^3 (0.0-1.0); MONOCYTES % (AUTO) 8 % (0-12); NEUTROPHILS # (AUTO) 7.4 X 10^3 (1.8-7.8); NEUTROPHILS % (AUTO) 77 % (42-75); PLATELET COUNT 293 10^3/uL (130-400); RED BLOOD COUNT 4.74 10^6/uL (4.35-5.85); RED CELL DISTRIBUTION WIDTH 12.4 % (10.0-14.5); WHITE BLOOD COUNT 9.5 10^3/uL (4.3-11.0)
[2018-02-19 06:27] LABS: ALANINE AMINOTRANSFERASE 45 U/L (0-55); ALKALINE PHOSPHATASE 42 U/L (40-136); BILIRUBIN,TOTAL 0.6 MG/DL (0.1-1.0); BUN/CREATININE RATIO 9; CALCIUM 9.2 MG/DL (8.5-10.1); CARBON DIOXIDE 26 MMOL/L (21-32); CHLORIDE 104 MMOL/L (98-107); CREATININE SERUM 0.76 MG/DL (0.60-1.30); GFR ESTIMATED > 60; GLUCOSE 117 MG/DL (70-105); POTASSIUM 3.7 MMOL/L (3.6-5.0); SODIUM 139 MMOL/L (135-145); TOTAL PROTEIN 6.6 GM/DL (6.4-8.2)
[2018-02-19] MEDS: LURASIDONE 40 MG (LATUDA) TABLET NON-FORM PO SCH (06:28)
[2018-02-19] MEDS: CATHETER FLUSH 10 ML SYR IV SCH ×3 (06:28→22:19)
--- NOTE | 2018-02-19 10:13 | Consultation-Cardiology ---
HPI-Cardiology Cardiology Consultation Date of Consultation 02/19/18 Date of Admission Time Seen by Provider: 10:08 HPI 37 years old gentleman with advanced mental retardation, unable to provide any history, nonverbal, no family members available, history was obtained by reviewing his record, it appear that he has became more lethargic and having more tremor, brought to the emergency room by his father and he was noted to have urinary tract infection. He is being treated and noted to be having sinus tachycardia. No other symptoms were noted. No fever or chills. Home Medications & Allergies Allergies: Coded Allergies: NKANo Known Allergies (Unverified Allergy, Mild, 09/22/09) Home Medication List Reviewed: Yes BTO-Bureuy-[place] Hx Patient Social History Marital Status: single Alcohol Use: Denies Use Recreational Drug Use: No Recent Foreign Travel: No Recent Infectious Disease Expo: No Recent Hopitalizations: No Physical Abuse Screen: No Sexual Abuse: No Immunizations Up To Date Tetanus Booster (TDap): Unknown Date of Influenza Vaccine: Jun 02, 2012 Past Medical History Unable to provide any history Family Medical History Significant Family History: Heart Disease Family Medical Hx Unable to provide history, noncontributory family history Constitutional: other (unable to provide review of systems) Reviewed Test Results Reviewed Test Results Lab Laboratory Tests 02/19/18 06:00 Laboratory Tests Test 02/19/18 06:00 Range/Units White Blood Count 9.5 4.3-11.0 10^3/uL Red Blood Count 4.74 4.35-5.85 10^6/uL Hemoglobin 13.6 13.3-17.7 G/DL Hematocrit 41 40-54 % Mean Corpuscular Volume 87 80-99 FL Mean Corpuscular Hemoglobin 29 25-34 PG Mean Corpuscular Hemoglobin Concent 33 32-36 G/DL Red Cell Distribution Width 12.4 10.0-14.5 % Platelet Count 293 130-400 10^3/uL Mean Platelet Volume 10.2 7.4-10.4 FL Neutrophils (%) (Auto) 77 H 42-75 % Lymphocytes (%) (Auto) 14 12-44 % Monocytes (%) (Auto) 8 0-12 % Eosinophils (%) (Auto) 1 0-10 % Basophils (%) (Auto) 0 0-10 % Neutrophils # (Auto) 7.4 1.8-7.8 X 10^3 Lymphocytes # (Auto) 1.3 1.0-4.0 X 10^3 Monocytes # (Auto) 0.8 0.0-1.0 X 10^3 Eosinophils # (Auto) 0.1 0.0-0.3 10^3/uL Basophils # (Auto) 0.0 0.0-0.1 10^3/uL Sodium Level 139 135-145 MMOL/L Potassium Level 3.7 3.6-5.0 MMOL/L Chloride Level 104 98-107 MMOL/L Carbon Dioxide Level 26 21-32 MMOL/L Anion Gap 9 5-14 MMOL/L Blood Urea Nitrogen 7 7-18 MG/DL Creatinine 0.76 0.60-1.30 MG/DL Estimat Glomerular Filtration Rate > 60 BUN/Creatinine Ratio 9 Glucose Level 117 H 70-105 MG/DL Calcium Level 9.2 8.5-10.1 MG/DL Total Bilirubin 0.6 0.1-1.0 MG/DL Aspartate Amino Transf (AST/SGOT) 23 5-34 U/L Alanine Aminotransferase (ALT/SGPT) 45 0-55 U/L Alkaline Phosphatase 42 40-136 U/L Total Protein 6.6 6.4-8.2 GM/DL Albumin 4.0 3.2-4.5 GM/DL Physical Exam Vital Signs Vital Signs - First Documented 02/17/18 02/17/18 19:50 21:15 Temp 101.0 Pulse 123 Resp 26 B/P (MAP) 129/115 (120) Pulse Ox 93 O2 Delivery Room Air O2 Flow Rate 2.00 Capillary Refill : Less Than 3 Seconds Height, Weight, BMI Height: 5'4.00" Weight: 295lbs. 5.0oz. 133.711134he; 30.9 BMI Method:Estimated General Appearance: Mild Distress HEENT: TMs Normal, Normal ENT Inspection Neck: Normal Inspection, Non Tender Respiratory: Lungs Clear, Normal Breath Sounds, No Accessory Muscle Use Cardiovascular: No Gallop, No JVD, Tachycardia Gastrointestinal: Normal Bowel Sounds, Non Tender Back: Normal Inspection Extremity: Normal Inspection Neurologic/Psychiatric: Alert, Other (nonverbal, not following commands) A/P-Cardiology Admission Diagnosis Sinus tachycardia Urinary tract infection Change in mental status Assessment/Plan Sinus tachycardia, probably secondary to urinary tract infection and hypovolemia , receiving IV fluid, I will add low-dose beta blockers and evaluate tolerance and response Urinary tract infection, receiving antibiotics Questionable sepsis, managed by primary care team Advanced mental retardation, noncommunicating. Managed by primary care physician Clinical Quality Measures DVT/VTE Risk/Contraindication: Risk Factor Score Per Nursin RFS Level Per Nursing on Admit: 4+=Very High GELY PHILIPPE MD Feb 19, 2018 10:12
[2018-02-19] MEDS: MONTELUKAST 10 MG (SINGULAIR) TAB PO SCH (20:50)
[2018-02-19] MEDS: cefTRIAXone 2 GM/NS 50 ML IVPB IV SCH ×2 (20:50)
[2018-02-20 03:22] VITALS: BP 138/80
[2018-02-20] MEDS: CATHETER FLUSH 10 ML SYR IV SCH ×3 (05:39→20:48)
--- NOTE | 2018-02-20 07:31 | Progress Note (SOAP) ---
Subjective Subjective/Events-last exam Patient still is running a low-grade fever. His hand tremor is less. He is still feeding himself fairly well. Review of Systems Date Seen by Provider: Feb 20, 2018 Time Seen by Provider: 07:30 Focused Exam Lactate Level 02/17/18 19:33: Lactic Acid Level 1.78 Objective Exam Last Set of Vital Signs Vital Signs Date Time Temp Pulse Resp B/P (MAP) Pulse Ox O2 Delivery O2 Flow Rate FiO2 02/20/18 03:22 99.6 107 20 138/80 (99) 95 Room Air 02/18/18 14:14 2.00 Capillary Refill : NONELess Than 3 Seconds I&O Intake and Output 02/20/18 00:00 Intake Total 4275 ml Output Total 4050 ml Balance 225 ml Intake Oral 1225 ml IV Total 3050 ml Output Urine Total 4050 ml General: No Acute Distress Neck: Supple Lungs: Clear to Auscultation Heart: Regular Rate (With a rate of 100) Abdomen: Soft Skin: No Rashes Results/Procedures Lab Laboratory Tests 02/19/18 23:22: Glucometer 132H Microbiology 02/17/18 Blood Culture - Preliminary, Resulted No growth 02/17/18 Urine Culture - Final, Complete NO GROWTH Assessment/Plan Assessment/Plan Assessment & Plan (1) Sepsis -Patient currently on IV fluids as well as ceftriaxone 02/20 patient is now day 3 of ceftriaxone -IV fluids to be decreased to 100 mL/h due to his good oral intake. -Blood cultures to date are negative for no growth (2) urinary tract infection -Urine culture is pending. -Day number 2 of ceftriaxone 02/20 urine culture has no growth (3) Tachycardia -Patient is not decompensated from a heart rate of 117. -The rate may be related to his overall infection -Cardiology was consulted by admitting attending. 02/20 -Cardiology note noted he has been started on a low-dose beta destiny. Clinical Quality Measures DVT/VTE Risk/Contraindication: Risk Factor Score Per Nursin RFS Level Per Nursing on Admit: 4+=Very High GEGE ANDERSON MD Feb 20, 2018 07:31
[2018-02-20] MEDS: LURASIDONE 40 MG (LATUDA) TABLET NON-FORM PO SCH (07:33)
[2018-02-20] MEDS: 1/2 NS IV SOLUTION 1,000 ML IV SCH ×2 (07:34→17:25)
[2018-02-20 07:56] VITALS: BP 144/80
[2018-02-20 12:07] VITALS: BP 164/92
--- NOTE | 2018-02-20 12:23 | Cardiology Progress Note ---
Subjective Date Seen by Provider: Feb 20, 2018 Time Seen by Provider: 12:21 Subjective/Events-last exam Patient is in bed, not following commands, not verbal. Unable to provide any information or review of system Review of Systems General: Other (Unable to provide review of systems) Focused Exam Lactate Level 02/17/18 19:33: Lactic Acid Level 1.78 Objective-Cardiology Exam Last Set of Vital Signs Vital Signs 02/20/18 02/20/18 08:00 12:07 Temp 99.3 Pulse 112 Resp 18 B/P (MAP) 164/92 (116) Pulse Ox 93 O2 Delivery Room Air O2 Flow Rate 2.00 Capillary Refill : NONELess Than 3 Seconds I&O Intake and Output 02/20/18 00:00 Intake Total 4275 ml Output Total 4050 ml Balance 225 ml Intake Oral 1225 ml IV Total 3050 ml Output Urine Total 4050 ml General: Alert, No Acute Distress Neck: Supple, No JVD Lungs: Clear to Auscultation Heart: Regular Rate (With a rate of 100), Normal S1, Normal S2 Abdomen: Soft Skin: No Rashes Results Lab Laboratory Tests Test 02/19/18 23:22 Range/Units Glucometer 132 H 70-110 MG/DL A/P-Cardiology Admission Diagnosis Sinus tachycardia Urinary tract infection Change in mental status Assessment/Plan Sinus tachycardia, probably secondary to urinary tract infection and hypovolemia , better today, started on beta blockers yesterday Urinary tract infection, receiving antibiotics Questionable sepsis, managed by primary care team Advanced mental retardation, noncommunicating. Managed by primary care physician I will sign off at this point, reconsult if needed. Thank you for allowing me to pursue in the management of Mr. Putnam Clinical Quality Measures DVT/VTE Risk/Contraindication: Risk Factor Score Per Nursin RFS Level Per Nursing on Admit: 4+=Very High GELY PHILIPPE MD Feb 20, 2018 12:23
[2018-02-20 16:46] VITALS: BP 141/95
[2018-02-20] MEDS: MONTELUKAST 10 MG (SINGULAIR) TAB PO SCH (20:47)
[2018-02-20] MEDS: ONDANSETRON 4 MG/2 ML (SDV) Z0FRAN IV PRN (20:47)
[2018-02-20] MEDS: cefTRIAXone 2 GM/NS 50 ML IVPB IV SCH ×2 (20:48)
[2018-02-20 20:55] VITALS: BP 145/93
[2018-02-21] VITALS (8 sets, daily range): BP systolic 138–187; BP diastolic 64–94
[2018-02-21] MEDS: 1/2 NS IV SOLUTION 1,000 ML IV SCH ×3 (04:46→23:08)
[2018-02-21] MEDS: CATHETER FLUSH 10 ML SYR IV SCH ×3 (04:47→20:47)
[2018-02-21 05:41] LABS: BASOPHILS # (AUTO) 0.1 10^3/uL (0.0-0.1); BASOPHILS % (AUTO) 1 % (0-10); EOSINOPHILS # (AUTO) 0.2 10^3/uL (0.0-0.3); EOSINOPHILS % (AUTO) 2 % (0-10); HEMATOCRIT 43 % (40-54); HEMOGLOBIN 14.1 G/DL (13.3-17.7); LYMPHOCYTES # (AUTO) 1.4 X 10^3 (1.0-4.0); LYMPHOCYTES % (AUTO) 15 % (12-44); MEAN CORPUSCULAR HEMOGLOBIN 29 PG (25-34); MEAN CORPUSCULAR HGB CONC 33 G/DL (32-36); MEAN CORPUSCULAR VOLUME 88 FL (80-99); MEAN PLATELET VOLUME 10.6 FL (7.4-10.4); MONOCYTES % (AUTO) 10 % (0-12); NEUTROPHILS # (AUTO) 7.1 X 10^3 (1.8-7.8); NEUTROPHILS % (AUTO) 73 % (42-75); PLATELET COUNT 333 10^3/uL (130-400); RED BLOOD COUNT 4.91 10^6/uL (4.35-5.85); RED CELL DISTRIBUTION WIDTH 12.5 % (10.0-14.5); WHITE BLOOD COUNT 9.7 10^3/uL (4.3-11.0)
[2018-02-21 05:53] LABS: BUN/CREATININE RATIO 14; CARBON DIOXIDE 25 MMOL/L (21-32); CHLORIDE 104 MMOL/L (98-107); CREATININE SERUM 0.79 MG/DL (0.60-1.30); GFR ESTIMATED > 60; GLUCOSE 100 MG/DL (70-105); SODIUM 146 MMOL/L (135-145)
[2018-02-21] MEDS: LURASIDONE 40 MG (LATUDA) TABLET NON-FORM PO SCH (06:05)
--- NOTE | 2018-02-21 15:35 | Discharge Summary ---
Diagnosis/Chief Complaint Date of Admission 02/17/18 Date of Discharge 02/21/18 Admission Diagnosis Admission Diagnosis Sepsis UTI Tachycardia Mental Retardation Discharge Diagnosis (1) Sepsis -Patient currently on IV fluids as well as ceftriaxone 02/20 patient is now day 3 of ceftriaxone -IV fluids to be decreased to 100 mL/h due to his good oral intake. -Blood cultures to date are negative for no growth 02/21 -sepsis has resolved -afebrile -WBC normalized -urine and blood culture with no growth (2) urinary tract infection -Urine culture is pending. -Day number 2 of ceftriaxone 02/20 urine culture has no growth 02/21 -Day 4 Rocephin -urine culture negative -afebrile -leukocytosis resolved -will discharge home today; given no growth from urine culture, will not discharge on abx -pt to keep follow up appt with Dr. Patel as scheduled on 02/28 at 10 am (3) Tachycardia -Patient is not decompensated from a heart rate of 117. -The rate may be related to his overall infection -Cardiology was consulted by admitting attending. 02/20 -Cardiology note noted he has been started on a low-dose beta destiny. 02/21 -pt discharged on propranolol BID, which was the beta destiny he was on prior to admission (4) Morbid Obesity, BMI 51 -weight loss encouraged Chief Complaint/HPI Chief Complaint/HPI Pt is a 37 yo male who presented to the ED for diaphoresis and tremors. His primary home care administrator, his father, brought the pt to the [facility] and they referred the pt to ED. Pt is unable to give a history, as he is mentally disabled. Father was present to give a hx in the ED but was not available when I went to examine the pt. According to the ED note, the pt started having an increase from his baseline essential tremor 4 days ago. The father also noticed some gross blood in the toilet and in the pt's undergarments. Pt's last colonoscopy was 10 y ago at which time he had a polyp removed. The EKG performed in the ED was not significant for ST changes or otherwise abnormal. His urine showed UTI, combined w/ fever and tachycardia he was admitted to the medical floor for possible sepsis. Discharge Summary-Simple/Stand Consultations Discharge Physical Examination Allergies: Coded Allergies: NKANo Known Allergies (Unverified Allergy, Mild, 09/22/09) Vitals & I&Os Vital Sign - Last 12Hours Date Time Temp Pulse Resp B/P (MAP) Pulse Ox O2 Delivery O2 Flow Rate FiO2 02/21/18 13:00 112 02/21/18 12:00 99.0 20 138/64 (88) 95 02/21/18 09:51 21 02/21/18 09:39 Room Air 02/20/18 08:00 2.00 Intake and Output 02/21/18 00:00 Intake Total 2165 ml Output Total 2700 ml Balance -535 ml General Appearance: Alert, Cooperative, No Acute Distress HEENT: Atraumatic, EOMI, Mucous Memb Moist/[place] Respiratory: Clear to Auscultation, Normal Air Movement Cardiovascular: Regular Rate, Normal S1, Normal S2 Abdominal: Normal Bowel Sounds, Soft, No Tenderness, No Masses Extremities: No Clubbing, No Cyanosis, Normal Pulses Skin: No Rashes, No Significant Lesion Neuro: Normal Gait, Normal Tone, Sensation Intact, Cranial Nerves 3-12 NL Psych/Mental Status: Mood NL, Other (mental status at baseline for patient per report) Hospital Course See final discharge diagnosis. Labs Laboratory Tests Test 02/19/18 06:00 02/19/18 23:22 02/21/18 05:00 Range/Units White Blood Count 9.5 9.7 4.3-11.0 10^3/uL Red Blood Count 4.74 4.91 4.35-5.85 10^6/uL Hemoglobin 13.6 14.1 13.3-17.7 G/DL Hematocrit 41 43 40-54 % Mean Corpuscular Volume 87 88 80-99 FL Mean Corpuscular Hemoglobin 29 29 25-34 PG Mean Corpuscular Hemoglobin Concent 33 33 32-36 G/DL Red Cell Distribution Width 12.4 12.5 10.0-14.5 % Platelet Count 293 333 130-400 10^3/uL Mean Platelet Volume 10.2 10.6 H 7.4-10.4 FL Neutrophils (%) (Auto) 77 H 73 42-75 % Lymphocytes (%) (Auto) 14 15 12-44 % Monocytes (%) (Auto) 8 10 0-12 % Eosinophils (%) (Auto) 1 2 0-10 % Basophils (%) (Auto) 0 1 0-10 % Neutrophils # (Auto) 7.4 7.1 1.8-7.8 X 10^3 Lymphocytes # (Auto) 1.3 1.4 1.0-4.0 X 10^3 Monocytes # (Auto) 0.8 1.0 0.0-1.0 X 10^3 Eosinophils # (Auto) 0.1 0.2 0.0-0.3 10^3/uL Basophils # (Auto) 0.0 0.1 0.0-0.1 10^3/uL Sodium Level 139 146 H 135-145 MMOL/L Potassium Level 3.7 4.0 3.6-5.0 MMOL/L Chloride Level 104 104 98-107 MMOL/L Carbon Dioxide Level 26 25 21-32 MMOL/L Anion Gap 9 17 H 5-14 MMOL/L Blood Urea Nitrogen 7 11 7-18 MG/DL Creatinine 0.76 0.79 0.60-1.30 MG/DL Estimat Glomerular Filtration Rate > 60 > 60 BUN/Creatinine Ratio 9 14 Glucose Level 117 H 100 70-105 MG/DL Calcium Level 9.2 10.0 8.5-10.1 MG/DL Total Bilirubin 0.6 0.1-1.0 MG/DL Aspartate Amino Transf (AST/SGOT) 23 5-34 U/L Alanine Aminotransferase (ALT/SGPT) 45 0-55 U/L Alkaline Phosphatase 42 40-136 U/L Total Protein 6.6 6.4-8.2 GM/DL Albumin 4.0 3.2-4.5 GM/DL Glucometer 132 H 70-110 MG/DL Discharge Condition at discharge stable Instructions to patient/family Please see electronic discharge instructions given to patient. Discharge Medications Reviewed and agree with Discharge Medication list on patient's Discharge Instruction sheet Clinical Quality Measures DVT/VTE Risk/Contraindication: Risk Factor Score Per Nursin RFS Level Per Nursing on Admit: 4+=Very High Copy Copies To 1: JOAO PATEL MD, MARGARET E DO Feb 21, 2018 15:35
--- NOTE | 2018-02-21 15:41 | Discharge Instructions ---
Discharge [facility] Discharge Medications New, Converted or Re-Newed RX: Other (no medication changes) Continued Medications: Clonazepam (Clonazepam) 0.5 Mg Tablet 0.5 MG PO DAILY PRN for ANXIETY, TAB Lurasidone HCl (Latuda) 60 Mg Tablet 60 MG PO DAILY, TAB Montelukast Sodium (Montelukast Sodium) 10 Mg Tablet 10 MG PO HS, TAB Omeprazole (Omeprazole) 20 Mg Capsule.dr 20 MG PO DAILY, CAP Propranolol HCl (Propranolol HCl) 20 Mg Tablet 20 MG PO BID, TAB LAST FILLED #90 01-06-18 Patient Instructions Patient Instructions -continue all your prescriptions as prior to admission -keep appt with Dr. Patel as scheduled, 02/28/18 at 10:00 for follow up -your urine culture does not show any bacteria growing in it, so you do not need to take antibiotics when discharged from the hospital -drink plenty of fluids, especially water -call office or recreational assistant provider with any questions or concerns Goal/Follow Up Appt: Dr. Patel, 02/28/18 at 10:00 am Return to The Hospital For: chest pain or pressure, shortness of breath not improved by rest, nausea or vomiting that makes you unable to keep down clear liquids or medications for more than 24 hours, fever >101 that lasts for more than 2-3 days and does not come down with tylenol or ibuprofen, severe pain not controlled by your normal measures, if directed by recreational assistant provider or any other emergent complaints or concerns Activity & Diet Discharge Diet: Low Sodium Diet Activity as Tolerated: Yes Copy Copies To 1: JOAO PATEL MD, MARGARET E DO Feb 21, 2018 15:41
[2018-02-21] MEDS: cefTRIAXone 2 GM/NS 50 ML IVPB IV SCH ×2 (20:48)
[2018-02-21] MEDS: MONTELUKAST 10 MG (SINGULAIR) TAB PO SCH (20:48)
[2018-02-22 03:27] VITALS: BP 163/77
[2018-02-22] MEDS: CATHETER FLUSH 10 ML SYR IV SCH (05:36)
[2018-02-22] MEDS: LURASIDONE 40 MG (LATUDA) TABLET NON-FORM PO SCH (06:05)
[2018-02-22] MEDS ORDERED: MILK OF MAGNESIA 400 MG/5 ML 30 ML UDC PO ONE (08:00)
[2018-02-22 08:02] VITALS: BP 147/85
[2018-02-22 09:00] VITALS: BP 147/85
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
== END 2018-02-22 10:35 | disposition home or self-care (01) | DRG 872 ==
LOC: EDUNIT# 19:09 → ER 19:10 → UNDOADMOB 21:22 → 4TH 21:22 → INTOOBSV 02-20 11:53 → OBSVTOIN 02-20 11:53 → UNDODISIN 02-22 10:35
PROVIDERS: ADMIT Family Medicine; ATTEND Family Medicine
DX: A41.9 Sepsis, unspecified organism (principal); N30.00 Acute cystitis without hematuria; Z68.43 Body mass index [BMI] 50.0-59.9, adult; E86.1 Hypovolemia; F78 Other intellectual disabilities; G25.0 Essential tremor; J45.909 Unspecified asthma, uncomplicated; K21.9 Gastro-esophageal reflux disease without esophagitis; E66.01 Morbid (severe) obesity due to excess calories; F39 Unspecified mood [affective] disorder
CPT/HCPCS: 36415; 71045; 80048; 80053; 81000; 82962; 83605; 84484; 85025; 85610; 85730; 86141; 87040; 87088; 93005; 93306; 94640; 94760; G0378

== ENCOUNTER 2018-03-17 06:53 | Inpatient (IN) | payer MEDICARE, MEDICAID ==
[2018-03-17] VITALS (18 sets, daily range): BP systolic 96–147; BP diastolic 7–94
[~2018-03-17] VITALS: Ht 175.3 cm; Wt 128.5 kg
[~2018-03-17 06:53] MED LIST changes: +CLON0.5T13 PO; +LURA60TA2 PO; +MONT10TA24 PO
[2018-03-17] MEDS ORDERED: NS IV 1000 ML 1,000 ML IV ONE ×4 (06:56→18:30)
[2018-03-17] MEDS ORDERED: ACETAMINOPHEN 500 MG TAB (TYLENOL) PO ONE (07:00)
[2018-03-17 07:15] LABS: BASOPHILS % (AUTO) 0 % (0-10); EOSINOPHILS % (AUTO) 0 % (0-10); HEMATOCRIT 47 % (40-54); HEMOGLOBIN 15.8 G/DL (13.3-17.7); LYMPHOCYTES # (AUTO) 0.3 X 10^3 (1.0-4.0); LYMPHOCYTES % (AUTO) 2 % (12-44); MEAN CORPUSCULAR HEMOGLOBIN 29 PG (25-34); MEAN CORPUSCULAR HGB CONC 34 G/DL (32-36); MEAN CORPUSCULAR VOLUME 86 FL (80-99); MEAN PLATELET VOLUME 10.9 FL (7.4-10.4); MONOCYTES # (AUTO) 1.3 X 10^3 (0.0-1.0); MONOCYTES % (AUTO) 7 % (0-12); NEUTROPHILS # (AUTO) 15.7 X 10^3 (1.8-7.8); NEUTROPHILS % (AUTO) 91 % (42-75); PLATELET COUNT 368 10^3/uL (130-400); RED CELL DISTRIBUTION WIDTH 12.5 % (10.0-14.5); WHITE BLOOD COUNT 17.3 10^3/uL (4.3-11.0)
[2018-03-17 07:20] LABS: CLARITY,URINE CLEAR; COLOR,URINE AMBER; GLUCOSE, URINE (UA) NEGATIVE (NEGATIVE); KETONES,URINE 2+ (NEGATIVE); LEUKOCYTE ESTERASE ,URINE 1+ (NEGATIVE); NITRITE,URINE NEGATIVE (NEGATIVE); PH,URINE 5 (5-9); PROTEIN,URINE 3+ (NEGATIVE); UROBILINOGEN,URINE 1 MG/DL (NORMAL)
[2018-03-17 07:28] LABS: INR 1.2 (0.8-1.4)
[2018-03-17 07:33] LABS: ALANINE AMINOTRANSFERASE 79 U/L (0-55); ALBUMIN 4.8 GM/DL (3.2-4.5); ALKALINE PHOSPHATASE 45 U/L (40-136); BILIRUBIN,TOTAL 1.3 MG/DL (0.1-1.0); BUN/CREATININE RATIO 13; CALCIUM 10.2 MG/DL (8.5-10.1); CARBON DIOXIDE 20 MMOL/L (21-32); CHLORIDE 109 MMOL/L (98-107); CREATININE SERUM 1.83 MG/DL (0.60-1.30); GFR ESTIMATED 41; GLUCOSE 159 MG/DL (70-105); POTASSIUM 3.6 MMOL/L (3.6-5.0); SODIUM 149 MMOL/L (135-145); TOTAL PROTEIN 8.1 GM/DL (6.4-8.2)
--- NOTE | 2018-03-17 07:48 | Diagnostic Imaging Report ---
PROCEDURE: CT head and CT cervical spine without contrast. TECHNIQUE: Multiple contiguous axial images were obtained through the brain and cervical spine without the use of intravenous contrast. Sagittal and coronal reformations through the cervical spine were then performed. INDICATION: Fevers and chills. Exam compared 09/15/2012. CT HEAD: There is no intracranial hemorrhage, hydrocephalus, edema, mass or mass effect. The basilar cisterns are patent. Given positioning and tilting of the head, the midline structures showed no evidence for the displacement. No sulcal effacement. The basilar cisterns patent. The mastoids clear. The paranasal sinuses clear. CT CERVICAL SPINE: Cervical body heights maintained. The alignment anatomic. No cervical fracture, bony destruction or paravertebral fluid collection. No substantial stenosis. IMPRESSION: CT head: No acute finding. CT cervical spine: No acute finding. Dictated by: Dictated on workstation # [id number]
[2018-03-17 07:49] LABS: BAND NEUTROPHILS 0 %; BASOPHILS % (MANUAL) 0 %; EOSINOPHILS % (MANUAL) 0 %; LYMPHOCYTES % (MANUAL) 3 %; MONOCYTES % (MANUAL) 3 %; NEUTROPHILS % (MANUAL) 94 %; RBC MORPH NORMAL
[2018-03-17 08:01] LABS: AMORPHOUS SEDIMENT,UR RARE AMOR URATES /LPF; BACTERIA,URINE TRACE /HPF; BILIRUBIN,URINE 1+ (NEGATIVE); RBC,URINE RARE /HPF; SQUAMOUS EPITHELIAL CELL,UR RARE /HPF; WBC,URINE RARE /HPF
--- NOTE | 2018-03-17 08:01 | Diagnostic Imaging Report ---
INDICATION: Found with lacerations. FINDINGS: AP pelvic radiograph is no fracture or dislocation. IMPRESSION: No acute appearing abnormality. Dictated by: Dictated on workstation # [id number]
--- NOTE | 2018-03-17 08:01 | Diagnostic Imaging Report ---
INDICATION: Lacerations to the knees. FINDINGS: Two views bilateral knee radiographs reveal no fracture, dislocation, obvious joint effusion or retained opaque foreign body. IMPRESSION: Negative. Dictated by: Dictated on workstation # [id number]
--- NOTE | 2018-03-17 08:02 | Diagnostic Imaging Report ---
INDICATION: Found with lacerations. FINDINGS: No chest wall fracture deformity, lung contusion, pneumothorax or hemothorax. No infiltrate or failure pattern. IMPRESSION: Negative. Dictated by: Dictated on workstation # [id number]
[2018-03-17] MEDS ORDERED: cefTRIAXone FOR IV USE 2,000 MG in NS (IVPB) 50 ML IV ONE (08:15)
[2018-03-17 08:18] LABS: URINE OTHER FEW SPERM /HPF
[2018-03-17] MEDS ORDERED: VANCOMYCIN INJECTION 1,000 MG in NS (IVPB) 250 ML IV ONE (09:00)
--- NOTE | 2018-03-17 09:04 | ED General ---
General Chief Complaint: Altered Mental Status Stated Complaint: AMS Nursing Triage Note: PT TO ROOM #8 VIA [facility]. ALERT. EMS REPORTS [place] PD FOUND PT WANDERING THE STREETS AND FOUND HIM IN A DRIVEWAY. PT COMMUNICATES NONVERBALLY WITH HX MR. PT NOTED TO BE FLUSHED AND DIAPHORETIC APPON MARIZA TO ED. INITIAL TYMPANIC TEMP 103.2. ABRASIONS NOTED TO BILAT KNEES. Nursing Sepsis Screen: Possible Severe Sepsis Risk Source of Information: Patient Exam Limitations: No Limitations History of Present Illness Date Seen by Provider: Mar 17, 2018 Time Seen by Provider: 06:55 Initial Comments This 37-year-old gentleman brought to the emergency room via EMS after being found wandering around the neighborhood. He has apparent altered mental status. Patient has MR at baseline, but he is altered from his baseline according to this provider who is familiar with the patient from prior encounters. Patient has abrasions on his knees and grass stuck to the skin on his back suggesting a fall or crawling on the ground. He has no other obvious injuries. EMS reports he was ambulatory in the field. Initial temperature was 103.2. Police attempted to contact parents with whom patient lives but were unable even after going to the home. Patient is not reliably answering questions. He answers "I guess" to most questions. He has a tremor on the right side which is known to me as a chronic condition. He was diaphoretic with wet clothing. Allergies and Home Medications Allergies Coded Allergies: NKANo Known Allergies (Unverified Allergy, Mild, 09/22/09) Home Medications Clonazepam 0.5 Mg Tablet, 0.5 MG PO DAILY PRN for ANXIETY, (Reported) Lurasidone HCl 60 Mg Tablet, 60 MG PO DAILY, (Reported) Montelukast Sodium 10 Mg Tablet, 10 MG PO HS, (Reported) Omeprazole 20 Mg Capsule.dr, 20 MG PO DAILY, (Reported) Propranolol HCl 20 Mg Tablet, 20 MG PO BID, (Reported) Patient Home Medication List Home Medication List Reviewed: Yes Review of Systems Review of Systems Constitutional: see HPI EENTM: no symptoms reported Respiratory: no symptoms reported Cardiovascular: see HPI (tachycardia) Gastrointestinal: loss of appetite Genitourinary: no symptoms reported Skin: see HPI Psychiatric/Neurological: See HPI Hematologic/Lymphatic: No Symptoms Reported Immunological/Allergic: no symptoms reported Past Lagsmau-Sxllwq-Yiftal Hx Past Med/Social Hx: Reviewed Nursing Past Med/Soc Hx Patient Social History Alcohol Use: Denies Use Recreational Drug Use: No Smoking Status: Unknown if Ever Smoked 2nd Hand Smoke Exposure: No Recent Foreign Travel: No Contact w/Someone Who Travel: No Recent Infectious Disease Expo: No Recent Hopitalizations: No Physical Abuse: No Sexual Abuse: No Immunizations Up To Date Tetanus Booster (TDap): Unknown Date of Influenza Vaccine: Jun 02, 2012 Seasonal Allergies Seasonal Allergies: Yes (Allergic rhinitis) Past Medical History Surgeries: Yes Gallbladder Respiratory: Yes (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) Asthma Cardiac: Yes 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, ESSENTIAL TREMORS) Developmental Disorder Genitourinary: No Gastrointestinal: Yes Gastroesophageal Reflux Musculoskeletal: No Endocrine: Yes (OBESITY) HEENT: No Cancer: No Psychosocial: Yes (Mood Disorder, OCD) Anxiety, Depression Nursing Suicide Risk Score: 0 Integumentary: No Blood Disorders: No Family Medical History Reviewed Nursing Family Hx Heart Disease Physical Exam-Suspected Sepsis Physical Exam Vital Signs Vital Signs - First Documented 03/17/18 03/17/18 06:53 08:50 Temp 103.2 Pulse 142 Resp 23 B/P (MAP) 114/69 (84) Pulse Ox 95 O2 Delivery Room Air O2 Flow Rate 2.00 Capillary Refill : Less Than 3 Seconds Blood Pressure Mean: 104 Height, Weight, BMI Height: 5'9.00" Weight: 250lbs. 6.0oz. 113.052156dq; 30.9 BMI Method:Estimated General Appearance: No Apparent Distress, WD/WN, Obese HEENT: PERRL/EOMI, TMs Normal, Normal ENT Inspection, Pharynx Normal Neck: Normal Inspection Respiratory: Lungs Clear, Normal Breath Sounds, No Accessory Muscle Use, No Respiratory Distress Cardiovascular: No Edema, No Murmur, Tachycardia Gastrointestinal: Normal Bowel Sounds, Non Tender, Soft Extremity: Normal Capillary Refill, Normal Inspection, No Pedal Edema Neurologic/Psychiatric: Alert, No Motor/Sensory Deficits, Other (patient has decreased response to questions and commands beyond baseline) Skin: normal color, diaphoresis Focused Exam Sepsis Stage: Severe Sepsis Possible Source: Unknown Lactate Level 03/17/18 06:57: Lactic Acid Level 5.63*H 03/17/18 08:50: Lactic Acid Level 1.53 Time of Focused Exam: 09:00 Respiratory: Normal Breath Sounds, No Accessory Muscle Use, No Respiratory Distress Cardiovascular: No Edema, Tachycardia Capillary Refill: Less Than 3 Seconds Skin: normal color, warm/dry Lactic Acid Level Within 3hrs of presentation: Admin fluids, Admin 30ml/kg IBW due to BMI>30, Admin ABX, Blood cultures prior to ABX's, Focus exam, Lactate level Progress/Results/Core Measures Suspected Sepsis Recent Fever Within 48 Hours: No Infection Criteria Present: Suspected New Infection New/Unexplained Altered Menta: Yes Sepsis Screen: Possible Severe Sepsis Risk SIRS Temperature:102.4 Pulse: 126 Respiratory Rate: 21 Laboratory Tests 03/17/18 06:57: White Blood Count 17.3H Blood Pressure 123 /94 Mean: 104 03/17/18 06:57: Lactic Acid Level 5.63*H 03/17/18 08:50: Lactic Acid Level 1.53 Laboratory Tests 03/17/18 06:57: Creatinine 1.83H, INR Comment 1.2, Platelet Count 368, Total Bilirubin 1.3H Results/Orders Lab Results Laboratory Tests Test 03/17/18 06:57 03/17/18 07:00 03/17/18 08:23 03/17/18 08:50 Range/Units White Blood Count 17.3 H 4.3-11.0 10^3/uL Red Blood Count 5.40 4.35-5.85 10^6/uL Hemoglobin 15.8 13.3-17.7 G/DL Hematocrit 47 40-54 % Mean Corpuscular Volume 86 80-99 FL Mean Corpuscular Hemoglobin 29 25-34 PG Mean Corpuscular Hemoglobin Concent 34 32-36 G/DL Red Cell Distribution Width 12.5 10.0-14.5 % Platelet Count 368 130-400 10^3/uL Mean Platelet Volume 10.9 H 7.4-10.4 FL Neutrophils (%) (Auto) 91 H 42-75 % Lymphocytes (%) (Auto) 2 L 12-44 % Monocytes (%) (Auto) 7 0-12 % Eosinophils (%) (Auto) 0 0-10 % Basophils (%) (Auto) 0 0-10 % Neutrophils # (Auto) 15.7 H 1.8-7.8 X 10^3 Lymphocytes # (Auto) 0.3 L 1.0-4.0 X 10^3 Monocytes # (Auto) 1.3 H 0.0-1.0 X 10^3 Eosinophils # (Auto) 0.0 0.0-0.3 10^3/uL Basophils # (Auto) 0.0 0.0-0.1 10^3/uL Neutrophils % (Manual) 94 % Lymphocytes % (Manual) 3 % Monocytes % (Manual) 3 % Eosinophils % (Manual) 0 % Basophils % (Manual) 0 % Band Neutrophils 0 % Blood Morphology Comment NORMAL Prothrombin Time 15.0 H 12.2-14.7 SEC INR Comment 1.2 0.8-1.4 Activated Partial Thromboplast Time 24 24-35 SEC Sodium Level 149 H 135-145 MMOL/L Potassium Level 3.6 3.6-5.0 MMOL/L Chloride Level 109 H 98-107 MMOL/L Carbon Dioxide Level 20 L 21-32 MMOL/L Anion Gap 20 H 5-14 MMOL/L Blood Urea Nitrogen 24 H 7-18 MG/DL Creatinine 1.83 H 0.60-1.30 MG/DL Estimat Glomerular Filtration Rate 41 BUN/Creatinine Ratio 13 Glucose Level 159 H 70-105 MG/DL Lactic Acid Level 5.63 *H 1.53 0.50-2.00 MMOL/L Calcium Level 10.2 H 8.5-10.1 MG/DL Corrected Calcium 8.5-10.1 MG/DL Total Bilirubin 1.3 H 0.1-1.0 MG/DL Aspartate Amino Transf (AST/SGOT) 70 H 5-34 U/L Alanine Aminotransferase (ALT/SGPT) 79 H 0-55 U/L Alkaline Phosphatase 45 40-136 U/L Total Protein 8.1 6.4-8.2 GM/DL Albumin 4.8 H 3.2-4.5 GM/DL Serum Alcohol < 10 <10 MG/DL Urine Color MILLER H Urine Clarity CLEAR Urine pH 5 5-9 Urine Specific [place] 1.025 H 1.016-1.022 Urine Protein 3+ H NEGATIVE Urine Glucose (UA) NEGATIVE NEGATIVE Urine Ketones 2+ H NEGATIVE Urine Nitrite NEGATIVE NEGATIVE Urine Bilirubin 1+ H NEGATIVE Urine Urobilinogen 1 NORMAL MG/DL Urine Leukocyte Esterase 1+ H NEGATIVE Urine RBC (Auto) 1+ H NEGATIVE Urine RBC RARE /HPF Urine WBC RARE /HPF Urine Squamous Epithelial Cells RARE /HPF Urine Crystals PRESENT H /LPF Urine Amorphous Sediment RARE NITESH URATES H /LPF Urine Bacteria TRACE /HPF Urine Casts NONE /LPF Urine Mucus NEGATIVE /LPF Urine Other FEW SPERM H /HPF Urine Culture Indicated NO Group A Streptococcus Screen NEGATIVE NEGATIVE Test 03/17/18 09:00 Range/Units Urine Color YELLOW Urine Clarity SLIGHTLY CLOUDY Urine pH 5 5-9 Urine Specific [place] 1.025 H 1.016-1.022 Urine Protein 3+ H NEGATIVE Urine Glucose (UA) NEGATIVE NEGATIVE Urine Ketones 4+ H NEGATIVE Urine Nitrite NEGATIVE NEGATIVE Urine Bilirubin NEGATIVE NEGATIVE Urine Urobilinogen 1 NORMAL MG/DL Urine Leukocyte Esterase 1+ H NEGATIVE Urine RBC (Auto) 5+ H NEGATIVE Urine RBC RARE /HPF Urine WBC 0-2 /HPF Urine Squamous Epithelial Cells RARE /HPF Urine Crystals PRESENT H /LPF Urine Amorphous Sediment MOD NITESH URATES H /LPF Urine Bacteria TRACE /HPF Urine Casts PRESENT /LPF Urine Hyaline Casts 0-2 H /LPF Urine Mucus SMALL H /LPF Urine Culture Indicated NO Urine Opiates Screen NEGATIVE NEGATIVE Urine Oxycodone Screen NEGATIVE NEGATIVE Urine Methadone Screen NEGATIVE NEGATIVE Urine Propoxyphene Screen NEGATIVE NEGATIVE Urine Barbiturates Screen NEGATIVE NEGATIVE Ur Tricyclic Antidepressants Screen NEGATIVE NEGATIVE Urine Phencyclidine Screen NEGATIVE NEGATIVE Urine Amphetamines Screen NEGATIVE NEGATIVE Urine Methamphetamines Screen NEGATIVE NEGATIVE Urine Benzodiazepines Screen NEGATIVE NEGATIVE Urine Cocaine Screen NEGATIVE NEGATIVE Urine Cannabinoids Screen NEGATIVE NEGATIVE Micro Results Microbiology 03/17/18 Influenza Types A,B Antigen (BETH) - Final, Complete 03/17/18 Urine Culture - Preliminary, Resulted Sent To [facility] My Orders Orders - WARREN AVITIA MD Cbc With Automated Diff (03/17/18 06:56) Comprehensive Metabolic Panel (03/17/18 06:56) Blood Culture (03/17/18 06:56) Sputum Culture (03/17/18 06:56) Urinalysis (03/17/18 06:56) Urine Culture (03/17/18 06:56) Protime With Inr (03/17/18 06:56) Partial Thromboplastin Time (03/17/18 06:56) Chest 1 View, Ap/Pa Only (03/17/18 06:56) Saline Lock/Iv-Start (03/17/18 06:56) Saline Lock/Iv-Start (03/17/18 06:56) Vital Signs Adult Sepsis Patie Q15M (03/17/18 06:56) O2 (03/17/18 06:56) Remove Rings In Anticipation O (03/17/18 06:56) Lactic Acid Analyzer (03/17/18 06:56) Ns Iv 1000 Ml (Sodium Chloride 0.9%) (03/17/18 06:56) Acetaminophen Tablet (Tylenol Tablet) (03/17/18 07:00) Ct Head/Cervical Spine Wo (03/17/18 06:56) Knee, 2 Views, Bilateral (03/17/18 07:06) Pelvis (03/17/18 07:06) Manual Differential (03/17/18 06:57) Ceftriaxone For Iv Use (Rocephin For I (03/17/18 08:15) Influenza A And B Antigens (03/17/18 08:05) Ns Iv 1000 Ml (Sodium Chloride 0.9%) (03/17/18 08:24) Rapid Strep A Screen (03/17/18 08:32) Ua Culture If Indicated (03/17/18 08:42) Alcohol (03/17/18 08:48) Drug Screen Stat (Urine) (03/17/18 08:48) Vancomycin Injection (Vancomycin Injecti (03/17/18 09:00) Anesthesia Consult (03/17/18 09:39) Saline Lock/Iv-Start (03/17/18 10:31) Ns Iv 1000 Ml (Sodium Chloride 0.9%) (03/17/18 10:31) Clear Liquid (03/17/18 Lunch) Admission Order(Inpt,Obs,Sdc) (03/17/18 11:30) Code/Resuscitation (03/17/18 11:30) Initiate Admission Nursing Pro .admission (03/17/18 11:30) Isolation Central Supply Req (03/17/18 11:30) Consult Physician (03/17/18 08:50) Oxygen-Administer 07,19 (03/17/18 11:34) Oxygen Delivery Set Up (03/17/18 11:34) Us Renal Bilateral 09959 (03/17/18 11:41) Bedrest For (#Of Hours) (03/17/18 11:41) Medications Given in ED Current Medications Medications Dose Ordered Sig/Yudi Route Start Time Stop Time Status Last Admin Dose Admin Acetaminophen 1,000 mg ONCE ONCE PO 03/17/18 07:00 03/17/18 07:01 DC 03/17/18 07:15 1,000 MG Ceftriaxone Sodium 2000 mg/ Sodium Chloride 50 ml @ 100 mls/hr ONCE ONCE IV 03/17/18 08:15 03/17/18 08:44 DC 03/17/18 08:20 100 MLS/HR Sodium Chloride 1,000 ml @ 0 mls/hr Q0M ONCE IV 03/17/18 06:56 03/17/18 06:59 DC 03/17/18 07:15 1,000 MLS/HR Sodium Chloride 1,000 ml @ 0 mls/hr Q0M ONCE IV 03/17/18 08:24 03/17/18 08:25 DC 03/17/18 09:23 0 MLS/HR Vital Signs/I&O 03/17/18 03/17/18 03/17/18 03/17/18 06:53 08:34 08:50 11:10 Temp 103.2 102.4 100.9 Pulse 142 126 115 Resp 23 21 23 B/P (MAP) 114/69 (84) 123/94 (104) 146/76 (104) Pulse Ox 95 95 96 98 O2 Delivery Room Air Room Air Nasal Cannula Nasal Cannula O2 Flow Rate 2.00 2.00 03/17/18 03/17/18 03/17/18 03/17/18 11:25 11:45 12:00 12:15 Temp 100.0 Pulse 115 112 113 110 Resp 20 15 20 22 B/P (MAP) 147/80 (102) 134/77 (96) 135/79 (97) 139/77 (97) Pulse Ox 100 100 100 100 O2 Delivery Nasal Cannula Nasal Cannula Nasal Cannula Nasal Cannula O2 Flow Rate 2.00 2.00 2.00 1.00 03/17/18 03/17/18 03/17/18 03/17/18 12:21 12:30 12:45 13:00 Pulse 114 111 111 109 Resp 21 17 16 B/P (MAP) 129/78 (95) 127/78 (94) 126/74 (91) Pulse Ox 100 100 100 O2 Delivery Nasal Cannula Nasal Cannula Nasal Cannula O2 Flow Rate 1.00 1.00 1.00 03/17/18 03/17/18 03/17/18 13:15 13:30 14:00 Pulse 105 107 106 Resp 15 20 22 B/P (MAP) 126/77 (93) 116/77 (90) 129/78 (95) Pulse Ox 100 100 100 O2 Delivery Nasal Cannula Nasal Cannula Nasal Cannula O2 Flow Rate 1.00 1.00 1.00 Capillary Refill : Less Than 3 Seconds Blood Pressure Mean: 104 Progress Note #1: Time: 09:00 Progress Note Patient was worked up for sepsis. No definite source of sepsis has been identified after review of studies and thorough examination of the patient. Urine has turned cloudy since the original urine specimen has been obtained. We will repeat a urinalysis. Influenza and rapid strep screens are pending. If these additional studies do not reveal a source of infection, we will consider lumbar puncture performed by anesthesia. Case has been discussed with Dr. Patel and Dr. Flores. As of this time we are planning to treat for severe sepsis of unknown source. Patient meets severe sepsis criteria due to renal failure and lactic acid greater than 4.0. He has already received Rocephin 2 g IV. Vancomycin is being initiated as well. Patient was evaluated for trauma as he has abrasions on his hand grasp was adhered to the skin on his back. CT of the head and neck revealed no injury. X-rays of the pelvis and knees were also performed and revealed no bony injuries. It should be noted patient was ambulatory in the field per EMS. Patient has received 1 L of IV fluid. A second liter is now infusing. His 30 ML per kilogram bolus dose per ideal body weight is 2121 ML. Progress Note #2: Time: 09:07 Progress Note Rapid flu and strep screens were negative. Repeat UA has been sent and results are pending. Progress Note #3: Time: 09:42 Progress Note Repeat urine showed no evidence of significant infection. Anesthesia will be consulted for LP. Progress Note #4: Time: 10:33 Progress Note Patient now has an ICU bed assignment. He should be transferred to the ICU shortly. A third liter of IV fluids has been ordered. This should satisfy his 30 ml/kg ideal body weight fluid bolus for severe sepsis. ECG Initial ECG Impression Date: Mar 17, 2018 Initial ECG Impression Time: 06:59 Initial ECG Rate: 143 Initial ECG Rhythm: S.Tach Comment Sinus tachycardia with no ST elevation or depression. No abnormal intervals or axis deviation. Diagnostic Imaging Diagonstic Imaging: CT Plain Films/CT/US/NM/MRI: c-spine, head Comments CT head and C-spine viewed by me and report reviewed. See report below: NAME: [facility] REC#: [id number] PT STATUS: ADM IN : 1980 PHYSICIAN: WARREN AVITIA MD ADMIT DATE: 03/17/18/ICU Signed Date of Exam: 03/17/18 CT HEAD/CERVICAL SPINE WO PROCEDURE: CT head and CT cervical spine without contrast. TECHNIQUE: Multiple contiguous axial images were obtained through the brain and cervical spine without the use of intravenous contrast. Sagittal and coronal reformations through the cervical spine were then performed. INDICATION: Fevers and chills. Exam compared 09/15/2012. CT HEAD: There is no intracranial hemorrhage, hydrocephalus, edema, mass or mass effect. The basilar cisterns are patent. Given positioning and tilting of the head, the midline structures showed no evidence for the displacement. No sulcal effacement. The basilar cisterns patent. The mastoids clear. The paranasal sinuses clear. CT CERVICAL SPINE: Cervical body heights maintained. The alignment anatomic. No cervical fracture, bony destruction or paravertebral fluid collection. No substantial stenosis. IMPRESSION: CT head: No acute finding. CT cervical spine: No acute finding. Dictated by: Dictated on workstation # [id number] Dict: 03/17/18 0744 Trans: 03/17/18 1154 Interpreted by: MAXIMO DECKER Electronically signed by: MAXIMO DECKER 03/17/18 1154 Diagonstic Imaging: Xray Plain Films/CT/US/NM/MRI: chest Comments Chest x-ray viewed by me and report reviewed. See report below: NAME: [facility] REC#: [id number] PT STATUS: ADM IN : 1980 PHYSICIAN: WARREN AVITIA MD ADMIT DATE: 03/17/18/ICU Signed Date of Exam: 03/17/18 CHEST 1 VIEW, AP/PA ONLY INDICATION: Found with lacerations. FINDINGS: No chest wall fracture deformity, lung contusion, pneumothorax or hemothorax. No infiltrate or failure pattern. IMPRESSION: Negative. Dictated by: Dictated on workstation # [id number] Dict: 03/17/18 0758 Trans: 03/17/18 115 Interpreted by: MAXIMO DECKER Electronically signed by: MAXIMO DECKER 03/17/18 1154 Diagonstic Imaging: Xray Plain Films/CT/US/NM/MRI: pelvis Comments Pelvis x-ray viewed by me and report reviewed. See report below: NAME: [facility] REC#: [id number] PT STATUS: ADM IN : 1980 PHYSICIAN: WARREN AVITIA MD ADMIT DATE: 03/17/18/ICU Signed Date of Exam: 03/17/18 PELVIS INDICATION: Found with lacerations. FINDINGS: AP pelvic radiograph is no fracture or dislocation. IMPRESSION: No acute appearing abnormality. Dictated by: Dictated on workstation # [id number] Dict: 03/17/18757 Trans: 03/17/18 115 Interpreted by: MAXIMO DECKER Electronically signed by: MAXIMO DECKER 03/17/18 1153 Diagonstic Imaging: Xray Plain Films/CT/US/NM/MRI: knee Comments Bilateral knee x-rays viewed by me and report reviewed. See report below: NAME: [facility] REC#: [id number] PT STATUS: ADM IN : 1980 PHYSICIAN: WARREN AVITIA MD ADMIT DATE: 03/17/18/ICU Signed Date of Exam: 03/17/18 KNEE, 2 VIEWS, BILATERAL INDICATION: Lacerations to the knees. FINDINGS: Two views bilateral knee radiographs reveal no fracture, dislocation, obvious joint effusion or retained opaque foreign body. IMPRESSION: Negative. Dictated by: Dictated on workstation # [id number] Dict: 03/17/18756 Trans: 03/17/18 115 Interpreted by: MAXIMO DECKER Electronically signed by: MAXIMO DECKER 03/17/18 1153 Departure Communication (Admissions) Time/Spoke to Admitting Phy: 08:45 Dr. Patel Time/Spoke to Consulting Phy: 08:50 Dr. Flores Impression Primary Impression: Severe sepsis Additional Impressions: Altered mental status Qualified Codes: R41.82 - Altered mental status, unspecified ARF (acute renal failure) Qualified Codes: N17.9 - Acute kidney failure, unspecified Disposition: 09 ADMITTED INPATIENT Condition: Improved Admissions Decision to Admit Reason: Admit from ER (General) Decision to Admit/Date: Mar 17, 2018 Time/Decision to Admit Time: 07:00 Departure-Patient Inst. Referrals: [facility] (PCP/Family) Primary Care Physician WARREN AVITIA MD Mar 17, 2018 09:04
[2018-03-17 09:07] LABS: BILIRUBIN,URINE NEGATIVE (NEGATIVE); CLARITY,URINE SLIGHTLY CLOUDY; COLOR,URINE YELLOW; GLUCOSE, URINE (UA) NEGATIVE (NEGATIVE); KETONES,URINE 4+ (NEGATIVE); LEUKOCYTE ESTERASE ,URINE 1+ (NEGATIVE); NITRITE,URINE NEGATIVE (NEGATIVE); PH,URINE 5 (5-9); PROTEIN,URINE 3+ (NEGATIVE); UROBILINOGEN,URINE 1 MG/DL (NORMAL)
[2018-03-17 09:21] LABS: AMORPHOUS SEDIMENT,UR MOD AMOR URATES /LPF; BACTERIA,URINE TRACE /HPF; HYALINE CASTS, URINE 0-2 /LPF; RBC,URINE RARE /HPF; SQUAMOUS EPITHELIAL CELL,UR RARE /HPF; WBC,URINE 0-2 /HPF
[2018-03-17 09:24] LABS: AMPHETAMINE SCREEN, URINE NEGATIVE (NEGATIVE); BARBITURATE SCREEN URINE NEGATIVE (NEGATIVE); BENZODIAZEPINES SCREEN URINE NEGATIVE (NEGATIVE); CANNABINOID SCREEN, URINE NEGATIVE (NEGATIVE); COCAINE SCREEN URINE NEGATIVE (NEGATIVE); METHADONE STAT NEGATIVE (NEGATIVE); METHAMPHETAMINE SCREEN URINE S NEGATIVE (NEGATIVE); OPIATE SCREEN URINE NEGATIVE (NEGATIVE); OXYCODONE STAT NEGATIVE (NEGATIVE); PROPOXYPHENE STAT NEGATIVE (NEGATIVE); TRICYCLIC ANTIDEPRESSANTS SCRE NEGATIVE (NEGATIVE)
[2018-03-17] MEDS ORDERED: EPINEPHrine 1 MG INJECTION 5 MG in NS (IVPB) 250 ML IV SCH (12:00)
[2018-03-17] MEDS ORDERED: ACETAMINOPHEN 500 MG TAB (TYLENOL) PO PRN (12:00)
[2018-03-17] MEDS ORDERED: ONDANSETRON 4 MG/2 ML (SDV) Z0FRAN IV PRN (12:00)
[2018-03-17] MEDS ORDERED: CEFEPIME INJECTION 1,000 MG in NS (IVPB) 50 ML IV SCH (12:00)
[2018-03-17] MEDS ORDERED: NS IV 1000 ML 3,401.94 ML IV ONE (12:00)
[2018-03-17] MEDS ORDERED: VANCOMYCIN INJECTION 1,000 MG in NS (IVPB) 250 ML IV SCH (12:03)
--- NOTE | 2018-03-17 12:39 | History & Physicial (CHS) ---
BRAYDON MARTIN MEDICAL STUDENT 03/17/18 12:39pm: HPI History of Present Illness: Mr. Putnam is a 37 yo M with a PMH of MR, GERD, asthma who presented with AMS and found to have severe sepsis. No history is able to be obtained from the pt given his MR except that he had felt fevers. He was found wandering around the neighborhood. He was covered with grass and dirt on presentation with knee abrasions. Temperature on presentation was 103.2. No other history is available for this current admission at the moment. Source: RN/MD, EMS Exam Limitations: clinical condition Attending Physician Joao Kulkarni MD PCP Center/[facility] [place],[facility] Consult Date of Admission Mar 17, 2018 at 08:59 Home Medications Home Medications Reviewed patient Home Medication Reconciliation performed by pharmacy medication reconciliations warehouse technician and/or nursing. Patients Allergies have been reviewed. Allergies Coded Allergies: NKANo Known Allergies (Unverified Allergy, Mild, 09/22/09) OSH-Rzzhqf-Tfmvjo Hx Patient Social History Alcohol Use: Denies Use Recreational Drug Use: No Smoking Status: Unknown if Ever Smoked 2nd Hand Smoke Exposure: No Recent Foreign Travel: No Contact w/other who traveled: No Recent Hopitalizations: No Recent Infectious Disease Expo: No Immunizations Up To Date Tetanus Booster (TDap): Unknown Date of Influenza Vaccine: Jun 02, 2012 Past Medical History HTN Mental Retardation Obesity Family Medical History Significant Family History: Heart Disease Review of Systems (CHC) Constitutional: fever Reviewed Test Results Reviewed Test Results Lab Laboratory Tests 03/17/18 06:57: Calcium Level 10.2 Laboratory Tests 03/17/18 06:57: White Blood Count 17.3H, Mean Platelet Volume 10.9H, Neutrophils (%) (Auto) 91H , Lymphocytes (%) (Auto) 2L, Neutrophils # (Auto) 15.7H, Lymphocytes # (Auto) 0.3L, Monocytes # (Auto) 1.3H, Prothrombin Time 15.0H, Sodium Level 149H, Chloride Level 109H, Carbon Dioxide Level 20L, Anion Gap 20H, Blood Urea Nitrogen 24H, Creatinine 1.83H, Glucose Level 159H, Lactic Acid Level 5.63*H, Calcium Level 10.2H, Total Bilirubin 1.3H, Aspartate Amino Transf (AST/SGOT) 70H , Alanine Aminotransferase (ALT/SGPT) 79H, Albumin 4.8H 03/17/18 07:00: Urine Color AMBERH, Urine Specific [place] 1.025H, Urine Protein 3+H, Urine Ketones 2+H, Urine Bilirubin 1+H, Urine Leukocyte Esterase 1+H, Urine RBC (Auto ) 1+H, Urine Crystals PRESENTH, Urine Amorphous Sediment RARE NITESH URATESH, Urine Other FEW SPERMH 03/17/18 08:23: 03/17/18 08:50: 03/17/18 09:00: Urine Specific [place] 1.025H, Urine Protein 3+H, Urine Ketones 4+H, Urine Leukocyte Esterase 1+H, Urine RBC (Auto) 5+H, Urine Crystals PRESENTH, Urine Amorphous Sediment MOD NITESH URATESH, Urine Hyaline Casts 0-2H, Urine Mucus SMALLH Laboratory Tests 03/17/18 06:57 Physical Exam-(CHC) Physical Exam Vital Signs VS - Last 72 Hours, by Label 03/17/18 03/17/18 03/17/18 03/17/18 06:53 08:34 08:50 11:10 Temp 103.2 102.4 100.9 Pulse 142 126 115 Resp 23 21 23 B/P (MAP) 114/69 (84) 123/94 (104) 146/76 (104) Pulse Ox 95 95 96 98 O2 Delivery Room Air Room Air Nasal Cannula Nasal Cannula O2 Flow Rate 2.00 2.00 03/17/18 03/17/18 11:25 12:21 Temp 100.0 Pulse 115 114 Resp 20 B/P (MAP) 147/80 (102) Pulse Ox 100 O2 Delivery Nasal Cannula O2 Flow Rate 2.00 Capillary Refill : Less Than 3 Seconds General Appearance: no apparent distress, other (minimially responsive due to MR) Neck: other (Appeared to have a stiff neck as he was only tracing me with his eyes when I move around) Respiratory: lungs clear, normal breath sounds, no respiratory distress, no accessory muscle use Cardiovascular: normal peripheral pulses, regular rate, rhythm, no murmur Gastrointestinal: normal bowel sounds, soft, other (reported RUQ pain on palpation) Extremities: no pedal edema Skin: normal color; No diaphoresis Assessment/Plan Assessment/Plan Admission Dx Severe Sepsis Admission Status: Inpatient Order (span 2 midnights) Reason for Inpatient Admission: Severe Sepsis Assessment & Plan Mr. Putnam is a 37 yo M with a PMH of MR, GERD, asthma who presented with AMS and found to have severe sepsis. 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 FEN: NS, replace lytes PRN, CLD PPx: hold chemical d/t possible LP Code: Full Dispo: Inpt ICU admit Copy Copies To 1: JOAO KULKARNI MD, HOLLY R MD 03/18/18 2:47pm: HPI History of Present Illness: Date seen by provider: Mar 18, 2018 Time Seen by Provider: 09:45 Home Medications Allergies Coded Allergies: NKANo Known Allergies (Unverified Allergy, Mild, 09/22/09) DCB-Atzyxd-Ktyfil Hx Patient Social History Living Status: Living at home with father Review of Systems (CHC) Constitutional: fever, malaise, other (Unable to get ROS due to MR) Reviewed Test Results Reviewed Test Results Lumbar Puncture: Elevated Opening pressure, labs pending Physical Exam-(CHC) Physical Exam General Appearance: no apparent distress HEENT: PERRL/EOMI Neck: non-tender, supple Respiratory: lungs clear, normal breath sounds, no respiratory distress, no accessory muscle use Cardiovascular: normal peripheral pulses, regular rate, rhythm, no murmur Gastrointestinal: normal bowel sounds, soft Back: no CVA tenderness, no vertebral tenderness Extremities: no pedal edema, no calf tenderness Neurologic/Psychiatric: no motor/sensory deficits, alert, other (baseline tremor) Skin: normal color, warm/dry Lymphatic: no adenopathy Assessment/Plan Assessment/Plan Assessment & Plan 37 yo M with baseline MR that presented to ER with severe sepsis of unknown source Severe Sepsis: VS stablized. Labs improved with sepsis hydration including normalized lactic acid. LP viral culture pending. Will continue rocephin 2G BID until tomorrow and then plan on going to 1 gram daily. Blood cultures growing Gram - Bacillis. Discussed antibiotic choice with pharm and will continue vancomycin at this time until cultures finalize. Acute Renal Failure: resolved with IVFs. MR: Patient is not quite back to [facility] as he normally answers simple questions Anxiety: Continue home meds Dispo: Ok to transfer patient to floor DVT PPX: lovenox FEN: Reg diet Patient was seen and examined with ZACHARY Villegas agree with above documentation unless otherwise noted BRAYDON MARTIN MEDICAL STUDENT Mar 17, 2018 12:39 pm JOAO KULKARNI MD Mar 18, 2018 2:47 pm
[2018-03-17] MEDS: NOREPINEPHRINE 4 MG in NS (IVPB) 250 ML IV SCH (12:58)
[2018-03-17] MEDS: VASOPRESSIN INJECTION 20 UNIT in NS (IVPB) 100 ML IV SCH ×2 (12:59→21:41)
--- NOTE | 2018-03-17 13:22 | Diagnostic Imaging Report ---
PROCEDURE: US Renal Bilateral. TECHNIQUE: Multiple real-time grayscale images were obtained over the kidneys in various projections bilaterally. INDICATION: Severe sepsis. FINDINGS: Right kidney measures 12 x 5.1 x 6.8 cm. Left kidney measure 11.9 x 6 x 5.7 cm. Both kidneys demonstrate normal renal cortical thickness and echogenicity. No hydronephrosis, calculi or mass. Bladder appears to be decompressed. IMPRESSION: Unremarkable sonographic appearance of both kidneys. Dictated by: Dictated on workstation # [id number]
[2018-03-17] MEDS ORDERED: NS IV 1000 ML 1,000 ML IV SCH (13:32)
[2018-03-17] MEDS ORDERED: LIDOCAINE 1% INJ 20 ML 20 ML VIAL ONE (14:08)
--- NOTE | 2018-03-17 15:15 | Anesthesia-Procedure Note ---
Procedures/Interventions Procedure Start/Stop/Diagnosis Date of Procedure: Mar 17, 2018 Start Time: 14:00 Stop Time: 15:45 Lumbar Puncture Discussed Risk,Benefits: Yes Patient Consents: Yes Position: Lying, Left Sterile Technique: Yes Opening Pressure: 28.5 Fluid Color: cloudy/pink Spinal Needle Used: Other (22 gauge spinocan 5") RODRIGO GUTIERREZ CRNA Mar 17, 2018 15:15
[2018-03-17] MEDS: NS IV 1000 ML 1,000 ML IV SCH ×2 (15:18→22:27)
--- NOTE | 2018-03-17 15:40 | Pulmonary Consultation ---
History of Present Illness History of Present Illness Date of Consultation 03/17/18 15:35 Time Seen by Provider: 15:35 Date of Admission History of Present Illness 37yo with hx of MR, GERD, asthma presented to ED secondary to MS changes and fever. He was found to have severe sepsis in the ED. He was found roaming around neighborhood. He was covered with grass and dirt upon presentation. Temp on admission was 103.2. Unable to obtain ROS secondary to MS. Allergies and Home Medications Allergies Coded Allergies: NKANo Known Allergies (Unverified Allergy, Mild, 09/22/09) Home Medications Clonazepam 0.5 Mg Tablet, 0.5 MG PO DAILY PRN for ANXIETY, (Reported) Lurasidone HCl 60 Mg Tablet, 60 MG PO DAILY, (Reported) Montelukast Sodium 10 Mg Tablet, 10 MG PO HS, (Reported) Omeprazole 20 Mg Capsule.dr, 20 MG PO DAILY, (Reported) Propranolol HCl 20 Mg Tablet, 20 MG PO BID, (Reported) Past Kbdmwac-Iiyqxz-Hjggqu Hx Past Med/Social Hx: Reviewed Nursing Past Med/Soc Hx Patient Social History Alcohol Use: Denies Use Recreational Drug Use: No Smoking Status: Unknown if Ever Smoked 2nd Hand Smoke Exposure: No Recent Foreign Travel: No Contact w/Someone Who Travel: No Recent Infectious Disease Expo: No Recent Hopitalizations: No Physical Abuse: No Sexual Abuse: No Immunizations Up To Date Tetanus Booster (TDap): Unknown Date of Influenza Vaccine: Jun 02, 2012 Seasonal Allergies Seasonal Allergies: Yes (Allergic rhinitis) Past Medical History Surgeries: Yes Gallbladder 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 6.0oz. 113.210258lx; 30.9 BMI Method:Estimated Exam Exam Vital Signs Date Time Temp Pulse Resp B/P (MAP) Pulse Ox O2 Delivery O2 Flow Rate FiO2 03/17/18 14:00 106 22 129/78 (95) 100 Nasal Cannula 1.00 03/17/18 13:30 107 20 116/77 (90) 100 Nasal Cannula 1.00 03/17/18 13:15 105 15 126/77 (93) 100 Nasal Cannula 1.00 03/17/18 13:00 109 16 126/74 (91) 100 Nasal Cannula 1.00 03/17/18 12:45 111 17 127/78 (94) 100 Nasal Cannula 1.00 03/17/18 12:30 111 21 129/78 (95) 100 Nasal Cannula 1.00 03/17/18 12:21 114 03/17/18 12:15 110 22 139/77 (97) 100 Nasal Cannula 1.00 03/17/18 12:00 113 20 135/79 (97) 100 Nasal Cannula 2.00 03/17/18 11:45 112 15 134/77 (96) 100 Nasal Cannula 2.00 03/17/18 11:25 100.0 115 20 147/80 (102) 100 Nasal Cannula 2.00 03/17/18 11:10 100.9 115 23 146/76 (104) 98 Nasal Cannula 2.00 03/17/18 08:50 96 Nasal Cannula 2.00 03/17/18 08:34 102.4 126 21 123/94 (104) 95 Room Air 03/17/18 06:53 103.2 142 23 114/69 (84) 95 Room Air Height & Weight Height: 5'9.00" Weight: 250lbs. 6.0oz. 113.724913xa; 30.9 BMI Method:Estimated General Appearance: No Apparent Distress, WD/WN, Obese HEENT: PERRL/EOMI, TMs Normal, Normal ENT Inspection, Pharynx Normal Neck: Normal Inspection Respiratory: Normal Breath Sounds, No Accessory Muscle Use, No Respiratory Distress Cardiovascular: No Edema, Tachycardia Capillary Refill: Less Than 3 Seconds Gastrointestinal: normal bowel sounds, soft, other (reported RUQ pain on palpation) Extremity: Normal Capillary Refill, Normal Inspection, No Pedal Edema Neurologic/Psychiatric: Alert, No Motor/Sensory Deficits, Other (patient has decreased response to questions and commands beyond baseline) Results Lab Laboratory Tests 03/17/18 06:57 Assessment/Plan Assessment/Plan Acute severe sepsis -Severe sepsis protocol -Cefepime, vanco -Fraire cultures pending -Lumbar puncture pending -IVF -Lumbar puncture is pending Acute renal failure with dehydration -IVF Metabolic lactic acidosis Hx of YOLY AYALA DO Mar 17, 2018 15:40
[2018-03-17 16:55] LABS: APPEARANCE,CSF SLT CLDY; COLOR,CSF COLORLESS; CSF TUBE NUMBER 4; RED BLOOD CELL,CSF 637 CELLS (0-0); WHITE BLOOD CELL,CSF 3 CELLS (0-5)
[2018-03-17 17:01] LABS: CSF GLUCOSE 88 MG/DL (50-80); CSF TOTAL PROTEIN 34 MG/DL (15-40)
--- NOTE | 2018-03-17 17:29 | Diagnostic Imaging Report ---
INDICATION: PICC line placement. Portable chest at 05:13 p.m. FINDINGS: Left upper extremity PICC line tip is at the innominate confluence. Heart size and pulmonary vascularity are normal. Lungs are clear. There are no effusions or pneumothoraces. IMPRESSION: PICC line tip is at the innominate confluence. Dictated by: Dictated on workstation # [id number]
[2018-03-17] MEDS: cefTRIAXone FOR IV USE 2,000 MG in NS (IVPB) 50 ML IV SCH (20:16)
[2018-03-17] MEDS: VANCOMYCIN 1500 MG/NS 500 ML IVPB IV SCH ×2 (23:11)
[2018-03-18] VITALS (16 sets, daily range): BP systolic 98–149; BP diastolic 55–95
[2018-03-18] MEDS: NOREPINEPHRINE 4 MG in NS (IVPB) 250 ML IV SCH (02:06)
[2018-03-18 03:46] LABS: BASOPHILS % (AUTO) 0 % (0-10); EOSINOPHILS % (AUTO) 0 % (0-10); HEMATOCRIT 38 % (40-54); LYMPHOCYTES # (AUTO) 1.5 X 10^3 (1.0-4.0); LYMPHOCYTES % (AUTO) 15 % (12-44); MEAN CORPUSCULAR HEMOGLOBIN 29 PG (25-34); MEAN CORPUSCULAR HGB CONC 32 G/DL (32-36); MEAN CORPUSCULAR VOLUME 91 FL (80-99); MEAN PLATELET VOLUME 10.6 FL (7.4-10.4); MONOCYTES # (AUTO) 1.2 X 10^3 (0.0-1.0); MONOCYTES % (AUTO) 12 % (0-12); NEUTROPHILS # (AUTO) 7.2 X 10^3 (1.8-7.8); NEUTROPHILS % (AUTO) 73 % (42-75); PLATELET COUNT 243 10^3/uL (130-400); RED BLOOD COUNT 4.18 10^6/uL (4.35-5.85); RED CELL DISTRIBUTION WIDTH 12.8 % (10.0-14.5); WHITE BLOOD COUNT 9.9 10^3/uL (4.3-11.0)
[2018-03-18 04:08] LABS: ALANINE AMINOTRANSFERASE 53 U/L (0-55); ALBUMIN 3.4 GM/DL (3.2-4.5); ALKALINE PHOSPHATASE 26 U/L (40-136); BILIRUBIN,TOTAL 0.7 MG/DL (0.1-1.0); BUN/CREATININE RATIO 13; CARBON DIOXIDE 20 MMOL/L (21-32); CHLORIDE 115 MMOL/L (98-107); CREATININE SERUM 0.78 MG/DL (0.60-1.30); GFR ESTIMATED > 60; GLUCOSE 81 MG/DL (70-105); POTASSIUM 3.3 MMOL/L (3.6-5.0); SODIUM 147 MMOL/L (135-145); TOTAL PROTEIN 5.6 GM/DL (6.4-8.2)
[2018-03-18] MEDS: VASOPRESSIN INJECTION 20 UNIT in NS (IVPB) 100 ML IV SCH (04:14)
[2018-03-18 04:35] LABS: MAGNESIUM 2.2 MG/DL (1.8-2.4); PHOSPHORUS 2.8 MG/DL (2.3-4.7)
[2018-03-18] MEDS: POTASSIUM CL 10MEQ/50ML IVPB 50 ML IV SCH ×3 (05:02→06:44)
[2018-03-18] MEDS ORDERED: POTASSIUM CL 10MEQ/50ML IVPB 50 ML IV SCH (06:00)
[2018-03-18] MEDS ORDERED: KCL 20 MEQ TAB (K-DUR) PO SCH (06:00)
[2018-03-18] MEDS ORDERED: MAGNESIUM 1 GM/100 ML IVPB 100 ML IV SCH (06:00)
--- NOTE | 2018-03-18 06:41 | Pulmonary Progress Note ---
Subjective Time Seen by Provider: 06:40 Subjective/Events-last exam No complications noted. Sepsis Event Evaluation Height, Weight, BMI Height: 5'9.00" Weight: 249lbs. 0.2oz. 112.297475jd; 36.8 BMI Method:Estimated Focused Exam Lactate Level 03/17/18 06:57: Lactic Acid Level 5.63*H 03/17/18 08:50: Lactic Acid Level 1.53 Time of Focused Exam: 09:00 Exam Exam Vital Signs Date Time Temp Pulse Resp B/P (MAP) Pulse Ox O2 Delivery O2 Flow Rate FiO2 03/18/18 06:00 97 19 125/61 (82) 98 Room Air 03/18/18 05:00 96 19 115/62 (79) 92 Room Air 03/18/18 04:00 98.0 03/18/18 04:00 Room Air 03/18/18 04:00 96 18 110/65 (80) 99 Room Air 03/18/18 03:00 99 20 105/60 (75) 99 Room Air 03/18/18 02:00 105 20 102/55 (71) 99 Room Air 03/18/18 01:00 101 18 106/57 (73) 100 Room Air 03/18/18 01:00 101 03/18/18 00:00 108 15 118/57 (77) 100 Room Air 03/18/18 00:00 Room Air 03/18/18 00:00 100.2 03/17/18 23:00 108 12 96/61 (73) 100 Room Air 03/17/18 22:00 100.1 03/17/18 22:00 103 19 104/50 (68) 100 Room Air 03/17/18 21:00 105 19 100/59 (73) 100 Room Air 03/17/18 20:00 99.8 104 17 109/75 (86) 100 Room Air 03/17/18 20:00 Room Air 03/17/18 19:00 103 17 99/53 (68) 100 Room Air 03/17/18 19:00 101 03/17/18 18:00 102 12 113/60 (77) 99 Room Air 03/17/18 17:00 101 17 03/17/18 16:30 101 17 03/17/18 16:00 105 16 03/17/18 16:00 99.6 106 15 125/90 (102) 100 Room Air 03/17/18 16:00 Nasal Cannula 1.50 03/17/18 15:30 102 12 03/17/18 15:00 101 16 03/17/18 14:30 107 22 03/17/18 14:00 106 22 129/78 (95) 100 Nasal Cannula 1.00 03/17/18 13:30 107 20 116/77 (90) 100 Nasal Cannula 1.00 03/17/18 13:15 105 15 126/77 (93) 100 Nasal Cannula 1.00 03/17/18 13:00 109 16 126/74 (91) 100 Nasal Cannula 1.00 03/17/18 12:45 111 17 127/78 (94) 100 Nasal Cannula 1.00 03/17/18 12:30 111 21 129/78 (95) 100 Nasal Cannula 1.00 03/17/18 12:21 114 03/17/18 12:15 110 22 139/77 (97) 100 Nasal Cannula 1.00 03/17/18 12:00 113 20 135/79 (97) 100 Nasal Cannula 2.00 03/17/18 11:45 112 15 134/77 (96) 100 Nasal Cannula 2.00 03/17/18 11:25 Nasal Cannula 1.50 03/17/18 11:25 100.0 115 20 147/80 (102) 100 Nasal Cannula 2.00 03/17/18 11:10 100.9 115 23 146/76 (104) 98 Nasal Cannula 2.00 03/17/18 08:50 96 Nasal Cannula 2.00 03/17/18 08:34 102.4 126 21 123/94 (104) 95 Room Air 03/17/18 06:53 103.2 142 23 114/69 (84) 95 Room Air I & O 03/18/18 07:00 Intake Total 7600 ml Output Total 1450 ml Balance 6150 ml Height & Weight Height: 5'9.00" Weight: 249lbs. 0.2oz. 112.442029xq; 36.8 BMI Method:Estimated General Appearance: No Apparent Distress, WD/WN, Obese HEENT: PERRL/EOMI, TMs Normal, Normal ENT Inspection, Pharynx Normal Neck: Normal Inspection Respiratory: Normal Breath Sounds, No Accessory Muscle Use, No Respiratory Distress Cardiovascular: No Edema, Tachycardia Capillary Refill: Less Than 3 Seconds Gastrointestinal: normal bowel sounds, soft, other (reported RUQ pain on palpation) Extremity: Normal Capillary Refill, Normal Inspection, No Pedal Edema Neurologic/Psychiatric: Alert, No Motor/Sensory Deficits, Other (patient has decreased response to questions and commands beyond baseline) Results Lab Laboratory Tests 03/17/18 06:57 03/18/18 03:35 Assessment/Plan Assessment/Plan Acute severe sepsis -Severe sepsis protocol -Cefepime, vanco -Fraire cultures pending -IVF Hypernatremia/hyperchloremia -Change IVF to D51/2 NS Acute renal failure with dehydration -IVF Metabolic lactic acidosis Hx of MR Pt appears to be stable. I am going to transfer him to 4th floor and sign off. Please call with any questions. YOLY MCDONALD DO Mar 18, 2018 06:41
[2018-03-18] MEDS: D5 1/2 NS 1000 ML IV SOLUTION 1,000 ML IV SCH ×2 (06:44→22:36)
[2018-03-18] MEDS: cefTRIAXone FOR IV USE 2,000 MG in NS (IVPB) 50 ML IV SCH ×2 (08:53→20:02)
[2018-03-18] MEDS: PANTOPRAZOLE 20 MG TABLET (PROTONIX) PO SCH (08:53)
[2018-03-18] MEDS ORDERED: OMEPRAZOLE 20 MG (PriLOSEC) CAP NON-FORMULARY PO SCH (09:00)
[2018-03-18] MEDS: VANCOMYCIN 1500 MG/NS 500 ML IVPB IV SCH ×4 (11:24→22:36)
[2018-03-19 03:33] VITALS: BP 131/78
[2018-03-19 04:51] LABS: BASOPHILS % (AUTO) 0 % (0-10); EOSINOPHILS % (AUTO) 0 % (0-10); HEMATOCRIT 38 % (40-54); HEMOGLOBIN 12.9 G/DL (13.3-17.7); LYMPHOCYTES # (AUTO) 0.8 X 10^3 (1.0-4.0); LYMPHOCYTES % (AUTO) 8 % (12-44); MEAN CORPUSCULAR HEMOGLOBIN 30 PG (25-34); MEAN CORPUSCULAR HGB CONC 34 G/DL (32-36); MEAN CORPUSCULAR VOLUME 88 FL (80-99); MEAN PLATELET VOLUME 10.7 FL (7.4-10.4); MONOCYTES # (AUTO) 0.8 X 10^3 (0.0-1.0); MONOCYTES % (AUTO) 8 % (0-12); NEUTROPHILS # (AUTO) 9.1 X 10^3 (1.8-7.8); NEUTROPHILS % (AUTO) 84 % (42-75); PLATELET COUNT 224 10^3/uL (130-400); RED BLOOD COUNT 4.33 10^6/uL (4.35-5.85); RED CELL DISTRIBUTION WIDTH 12.1 % (10.0-14.5); WHITE BLOOD COUNT 10.8 10^3/uL (4.3-11.0)
[2018-03-19 05:15] LABS: ALANINE AMINOTRANSFERASE 49 U/L (0-55); ALBUMIN 3.6 GM/DL (3.2-4.5); ALKALINE PHOSPHATASE 34 U/L (40-136); BILIRUBIN,TOTAL 0.8 MG/DL (0.1-1.0); BUN/CREATININE RATIO 8; CALCIUM 8.6 MG/DL (8.5-10.1); CARBON DIOXIDE 23 MMOL/L (21-32); CHLORIDE 107 MMOL/L (98-107); CREATININE SERUM 0.73 MG/DL (0.60-1.30); GFR ESTIMATED > 60; GLUCOSE 108 MG/DL (70-105); POTASSIUM 2.9 MMOL/L (3.6-5.0); SODIUM 142 MMOL/L (135-145); TOTAL PROTEIN 6.1 GM/DL (6.4-8.2)
[2018-03-19 05:44] LABS: PHOSPHORUS 2.8 MG/DL (2.3-4.7)
[2018-03-19] MEDS: PANTOPRAZOLE 20 MG TABLET (PROTONIX) PO SCH (06:08)
[2018-03-19] MEDS ORDERED: KCL 10 MEQ TAB (MICRO K) PO NR (07:57)
[2018-03-19 08:00] VITALS: BP 139/79
[2018-03-19] MEDS: cefTRIAXone FOR IV USE 2,000 MG in NS (IVPB) 50 ML IV SCH (08:25)
[2018-03-19] MEDS: POTASSIUM CL 10MEQ/50ML IVPB 50 ML IV SCH ×4 (08:26→15:45)
--- NOTE | 2018-03-19 09:32 | Progress Note (SOAP) ---
Subjective Subjective/Events-last exam Patient sitting up in chair at the time of exam. Reports from nursing staff that patient has been somewhat agitated this morning. He is able to answer some simple questions, but on a fairly limited basis. Tmax 100.4 over last 24 hours. No acute events overnight. Review of Systems Date Seen by Provider: Mar 19, 2018 Time Seen by Provider: 14:03 General: Appetite (decreased per staff, did not eat anything at lunch) HEENT: No Head Aches, No Sore Throat; Other (no photophobia) Pulmonary: No Cough Cardiovascular: No: Edema Gastrointestinal: No: Nausea, Vomiting, Abdominal Pain Musculoskeletal: neck pain (with flexion) Neurological: No: Seizures Focused Exam Lactate Level 03/17/18 06:57: Lactic Acid Level 5.63*H 03/17/18 08:50: Lactic Acid Level 1.53 Time of Focused Exam: 09:00 Objective Exam Last Set of Vital Signs Vital Signs Date Time Temp Pulse Resp B/P (MAP) Pulse Ox O2 Delivery O2 Flow Rate FiO2 03/19/18 03:33 100.0 102 20 131/78 (95) 93 Room Air 03/17/18 16:00 1.50 Capillary Refill : Less Than 3 Seconds I&O Intake and Output 03/19/18 00:00 Intake Total 0 ml Output Total 900 ml Balance -900 ml Intake Oral 0 ml Output Urine Total 900 ml General: Alert, No Acute Distress, Other (oriented to self, further orientation difficult to assess due to baseline mental retardation) HEENT: Atraumatic, PERRLA, EOMI, Mucous Memb Moist/[place], Other (no photophobia) Neck: Supple, No Thyromegaly Lungs: Clear to Auscultation, Normal Air Movement Heart: Regular Rate, Normal S1, Normal S2 Abdomen: Normal Bowel Sounds, Soft, No Tenderness, No Masses Extremities: No Clubbing, No Cyanosis, Normal Pulses Skin: No Rashes, No Significant Lesion Neuro: Normal Tone, Cranial Nerves 3-12 NL Psych/Mental Status: Other (mental status at baseline for patient per report) Results/Procedures Lab Laboratory Tests 03/19/18 04:40: White Blood Count 10.8, Red Blood Count 4.33L, Hemoglobin 12.9L, Hematocrit 38L , Mean Corpuscular Volume 88, Mean Corpuscular Hemoglobin 30, Mean Corpuscular Hemoglobin Concent 34, Red Cell Distribution Width 12.1, Platelet Count 224, Mean Platelet Volume 10.7H, Neutrophils (%) (Auto) 84H, Lymphocytes (%) (Auto) 8L, Monocytes (%) (Auto) 8, Eosinophils (%) (Auto) 0, Basophils (%) (Auto) 0, Neutrophils # (Auto) 9.1H, Lymphocytes # (Auto) 0.8L, Monocytes # (Auto) 0.8, Eosinophils # (Auto) 0.0, Basophils # (Auto) 0.0, Sodium Level 142, Potassium Level 2.9L, Chloride Level 107, Carbon Dioxide Level 23, Anion Gap 12, Blood Urea Nitrogen 6L, Creatinine 0.73, Estimat Glomerular Filtration Rate > 60, BUN/ Creatinine Ratio 8, Glucose Level 108H, Calcium Level 8.6, Corrected Calcium 8.9 , Phosphorus Level 2.8, Magnesium Level 2.0, Total Bilirubin 0.8, Aspartate Amino Transf (AST/SGOT) 50H, Alanine Aminotransferase (ALT/SGPT) 49, Alkaline Phosphatase 34L, Total Protein 6.1L, Albumin 3.6 Microbiology 03/17/18 Blood Culture - Preliminary, Resulted Positive; See Report See Comments 03/17/18 Virus Culture - Preliminary, Resulted Sent To [facility] 03/17/18 MRSA Screen - Final, Complete MRSA not isolated 03/17/18 Urine Culture - Final, Complete NO GROWTH Procedures Lumbar Puncture: Elevated Opening pressure, labs pending Assessment/Plan Assessment/Plan Assessment & Plan 37 yo M with baseline MR that presented to ER with severe sepsis of unknown source Severe Sepsis: -VS stablized. Labs improved with sepsis hydration including normalized lactic acid. LP viral culture pending. Will continue rocephin 2G BID until tomorrow and then plan on going to 1 gram daily. Blood cultures growing Gram - Bacillis. Discussed antibiotic choice with pharm and will continue vancomycin at this time until cultures finalize. 03/19 -WBC 9.9 --> 10.8 -Tmax 100.4 over last 24 hours (1110 03/18/18) -blood cultures: 2/2 positive for gram negative bacillus, further ID and sensitivities pending; 1/2 positive also for gram positive cocci and gram positive rods -LP with viral cx still pending -given that patient had hospitalization 02/17-02/21, will change rocephin to 2 grams cefepime Q8H for increased pseudomonal coverage; continue vanc until blood cultures have been finalized -urine cx neg -throat cx neg -influenza neg -tick serologies, hepatitis panel pending Acute Renal Failure: resolved with IVFs. MR: -Patient is not quite back to [facility] as he normally answers simple questions 03/19 -pt appears to be close to baseline per report from his father, who arrived shortly after the time of exam Anxiety: Continue home meds Anemia 03/19 -Hgb 12 --> 12.9 -likely dilutional -will check CBC in AM s/p Lumbar Puncture -CSF slightly cloudy, colorless, WBC 3, RBC 637, Glucose 88, Total Protein 34 -CSF viral cx pending -cx pending -pt with mild discomfort when neck flexed Patient was seen and examined with ZACHARY Villegas agree with above documentation unless otherwise noted Clinical Quality Measures DVT/VTE Risk/Contraindication: Risk Factor Score Per Nursin RFS Level Per Nursing on Admit: 4+=Very High Copy Copies To 1: [facility]/ELICEO LLOYD DO Mar 19, 2018 09:32
[2018-03-19] MEDS: VANCOMYCIN 1500 MG/NS 500 ML IVPB IV SCH ×4 (10:26→23:44)
[2018-03-19 12:00] VITALS: BP 145/70
[2018-03-19] MEDS ORDERED: QUEtiapine 25 MG (SEROquel) TAB IMMEDIATE RELEASE PO PRN (15:00)
[2018-03-19] MEDS: LORazepam INJ 2 MG/ML (ATIVAN) VIAL IVP PRN ×2 (15:29→21:04)
[2018-03-19] MEDS: CEFEPIME INJECTION 2,000 MG in NS (IVPB) 50 ML IV SCH ×2 (15:39→23:40)
[2018-03-19] MEDS ORDERED: POTASSIUM CL 10MEQ/50ML IVPB 0 ML IV ONE (15:41)
[2018-03-19 16:13] VITALS: BP 123/80
[2018-03-19] MEDS: D5 1/2 NS 1000 ML IV SOLUTION 1,000 ML IV SCH (18:26)
[2018-03-19 20:45] VITALS: BP 131/61
[2018-03-19] MEDS ORDERED: IBUPROFEN 600 MG (MOTRIN) TAB PO PRN (22:30)
[2018-03-19] MEDS ORDERED: LORazepam INJ 2 MG/ML (ATIVAN) VIAL IVP PRN (22:45)
[2018-03-19 23:58] VITALS: BP 122/72
[2018-03-20 05:02] LABS: BASOPHILS % (AUTO) 0 % (0-10); EOSINOPHILS # (AUTO) 0.2 10^3/uL (0.0-0.3); EOSINOPHILS % (AUTO) 2 % (0-10); HEMATOCRIT 39 % (40-54); HEMOGLOBIN 13.2 G/DL (13.3-17.7); LYMPHOCYTES # (AUTO) 0.9 X 10^3 (1.0-4.0); LYMPHOCYTES % (AUTO) 9 % (12-44); MEAN CORPUSCULAR HEMOGLOBIN 29 PG (25-34); MEAN CORPUSCULAR HGB CONC 34 G/DL (32-36); MEAN CORPUSCULAR VOLUME 87 FL (80-99); MEAN PLATELET VOLUME 11.8 FL (7.4-10.4); MONOCYTES # (AUTO) 0.8 X 10^3 (0.0-1.0); MONOCYTES % (AUTO) 8 % (0-12); NEUTROPHILS # (AUTO) 7.9 X 10^3 (1.8-7.8); NEUTROPHILS % (AUTO) 81 % (42-75); PLATELET COUNT 233 10^3/uL (130-400); RED BLOOD COUNT 4.51 10^6/uL (4.35-5.85); RED CELL DISTRIBUTION WIDTH 12.4 % (10.0-14.5); WHITE BLOOD COUNT 9.7 10^3/uL (4.3-11.0)
[2018-03-20 05:10] LABS: MAGNESIUM 2.2 MG/DL (1.8-2.4); PHOSPHORUS 3.6 MG/DL (2.3-4.7)
[2018-03-20 05:13] LABS: ALANINE AMINOTRANSFERASE 45 U/L (0-55); ALBUMIN 3.7 GM/DL (3.2-4.5); ALKALINE PHOSPHATASE 33 U/L (40-136); BILIRUBIN,TOTAL 0.8 MG/DL (0.1-1.0); BUN/CREATININE RATIO 7; CALCIUM 8.8 MG/DL (8.5-10.1); CARBON DIOXIDE 23 MMOL/L (21-32); CHLORIDE 107 MMOL/L (98-107); CREATININE SERUM 0.75 MG/DL (0.60-1.30); GFR ESTIMATED > 60; GLUCOSE 124 MG/DL (70-105); POTASSIUM 2.7 MMOL/L (3.6-5.0); SODIUM 142 MMOL/L (135-145); TOTAL PROTEIN 6.4 GM/DL (6.4-8.2)
[2018-03-20] MEDS: CEFEPIME INJECTION 2,000 MG in NS (IVPB) 50 ML IV SCH (06:40)
[2018-03-20 07:43] VITALS: BP 133/90
[2018-03-20] MEDS: PANTOPRAZOLE 20 MG TABLET (PROTONIX) PO SCH (08:30)
--- NOTE | 2018-03-20 09:16 | Progress Note (SOAP) ---
Subjective Subjective/Events-last exam Patient is quite talkative this morning, retelling that he had two stools overnight and he wasn't supposed to have accidents in bed and he was given baby wipes to clean his hands, but he thought he needed to clean his hands because he was going to eat. He continues to have pain with flexion of his neck, no photophobia. He was febrile overnight, T max 102.2 at 2225. He was unable to void after his montelongo was discontinued yesterday, and it was replaced overnight. C diff results are negative. Review of Systems Date Seen by Provider: Mar 20, 2018 Time Seen by Provider: 11:10 General: Chills (with fevers last night) HEENT: No Head Aches, No Eye Pain; Other (no photophobia) Pulmonary: No Cough Cardiovascular: No: Chest Pain Gastrointestinal: Diarrhea; No: Nausea, Vomiting, Abdominal Pain Genitourinary: Retention Musculoskeletal: neck pain (with flexion) Neurological: No: Seizures Focused Exam Time of Focused Exam: 09:00 Objective Exam Last Set of Vital Signs Vital Signs Date Time Temp Pulse Resp B/P (MAP) Pulse Ox O2 Delivery O2 Flow Rate FiO2 03/20/18 07:43 98.6 99 20 133/90 (104) 96 Room Air 03/17/18 16:00 1.50 Capillary Refill : Less Than 3 Seconds I&O Intake and Output 03/20/18 00:00 Intake Total 1915 ml Output Total 1275 ml Balance 640 ml Intake Oral 1150 ml IV Total 765 ml Output Urine Total 1275 ml General: Alert, Cooperative, No Acute Distress HEENT: Atraumatic, EOMI, Mucous Memb Moist/[place] Neck: Supple, No Thyromegaly Lungs: Clear to Auscultation, Normal Air Movement Heart: Regular Rate, Normal S1, Normal S2 Abdomen: Normal Bowel Sounds, Soft, No Tenderness, No Masses Extremities: No Clubbing, No Cyanosis Skin: No Rashes, No Significant Lesion Neuro: Normal Speech (speech at baseline for patient), Normal Tone, Sensation Intact Psych/Mental Status: Other (mood and mental status at baseline for patient) Results/Procedures Lab Laboratory Tests 03/20/18 04:35: White Blood Count 9.7, Red Blood Count 4.51, Hemoglobin 13.2L, Hematocrit 39L, Mean Corpuscular Volume 87, Mean Corpuscular Hemoglobin 29, Mean Corpuscular Hemoglobin Concent 34, Red Cell Distribution Width 12.4, Platelet Count 233, Mean Platelet Volume 11.8H, Neutrophils (%) (Auto) 81H, Lymphocytes (%) (Auto) 9L, Monocytes (%) (Auto) 8, Eosinophils (%) (Auto) 2, Basophils (%) (Auto) 0, Neutrophils # (Auto) 7.9H, Lymphocytes # (Auto) 0.9L, Monocytes # (Auto) 0.8, Eosinophils # (Auto) 0.2, Basophils # (Auto) 0.0, Sodium Level 142, Potassium Level 2.7L, Chloride Level 107, Carbon Dioxide Level 23, Anion Gap 12, Blood Urea Nitrogen 5L, Creatinine 0.75, Estimat Glomerular Filtration Rate > 60, BUN/ Creatinine Ratio 7, Glucose Level 124H, Calcium Level 8.8, Corrected Calcium 9.0 , Phosphorus Level 3.6, Magnesium Level 2.2, Total Bilirubin 0.8, Aspartate Amino Transf (AST/SGOT) 32, Alanine Aminotransferase (ALT/SGPT) 45, Alkaline Phosphatase 33L, Total Protein 6.4, Albumin 3.7 Microbiology 03/17/18 Blood Culture - Preliminary, Resulted Gram Negative Bacillus 1 Bacillus sp not B. anthracis 03/17/18 Virus Culture - Preliminary, Resulted Sent To [facility] 03/19/18 C. difficile [facility] Antigen & Toxins - Final, Complete 03/17/18 MRSA Screen - Final, Complete MRSA not isolated 03/17/18 Urine Culture - Final, Complete NO GROWTH Procedures Lumbar Puncture: Elevated Opening pressure, labs pending Assessment/Plan Assessment/Plan Assessment & Plan 37 yo M with baseline MR that presented to ER with severe sepsis of unknown source Severe Sepsis: -VS stablized. Labs improved with sepsis hydration including normalized lactic acid. LP viral culture pending. Will continue rocephin 2G BID until tomorrow and then plan on going to 1 gram daily. Blood cultures growing Gram - Bacillis. Discussed antibiotic choice with pharm and will continue vancomycin at this time until cultures finalize. 03/19 -WBC 9.9 --> 10.8 -Tmax 100.4 over last 24 hours (1110 03/18/18) -blood cultures: 2/2 positive for gram negative bacillus, further ID and sensitivities pending; 1/2 positive also for gram positive cocci and gram positive rods -LP with viral cx still pending -given that patient had hospitalization 02/17-02/21, will change rocephin to 2 grams cefepime Q8H for increased pseudomonal coverage; continue vanc until blood cultures have been finalized -urine cx neg -throat cx neg -influenza neg -tick serologies, hepatitis panel pending 03/20 -WBC 10.8 --> 9.7 -Tmax over last 24 hours 102.2 (2225 03/19/18) -blood cultures -Pantoea [employer]gl[employer]ans -stop cefepime, restart Rocephin 2 grams q24H -once pt has been afebrile for 48 hours, pt can be transitioned to oral abx, sensitive to Cipro, Bactrim, Augmentin -pt will need 7-14 days of abx total -second blood culture with gram positive cocci and rods with further ID and sensitivities still pending; unlikely to be causative organism, but will continue vanc until all blood cultures finalized -tick serologies, hepatitis panel still pending -CSF culture negative, CSF viral culture still pending -will check HIV, HSV, [place] with AM labs; if patient remains febrile, will reculture patient in AM Acute Renal Failure: resolved with IVFs. MR: -Patient is not quite back to [facility] as he normally answers simple questions 03/19 -pt appears to be close to baseline per report from his father, who arrived shortly after the time of exam Anxiety: Continue home meds 03/20 -patient's home medication - clonazepam 0.5 daily PRN was not continued on admission, medication ordered -ativan PRN agitation or anxiety -seroquel 50 mg at HS PRN Anemia 03/19 -Hgb 12 --> 12.9 -likely dilutional -will check CBC in AM 03/20 -Hgb 12 --> 12.9 --> 13.2 s/p Lumbar Puncture -CSF slightly cloudy, colorless, WBC 3, RBC 637, Glucose 88, Total Protein 34 -CSF viral cx pending -cx negative -pt with mild discomfort when neck flexed -will check HSV, HIV, [place] in AM -patient to remain in droplet precautions for potential viral meningitis Hypokalemia 03/20 -2.9 --> 2.7 -pt did not take oral potassium yesterday -replace with a total of 80 mEq IVPB over the course of the day/night -recheck in AM Urinary Retention 03/20 -montelongo dc'ed yesterday, pt unable to void after 12 hours -montelongo replaced early this AM Hypertension 03/20 -pt on propranolol BID at home; initially held due to sepsis -will resume with hold parameters Patient appears much improved today compared to yesterday. He requires inpatient hospitalization and IV abx until he has remained fever free for 48 hours; now that gram negative bacteremia has been identified with sensitivities , and patient has bee on appropriate abx, if he has recurrence of fever we will repeat blood cultures. If he remains fever free, he could potentially be ready for discharge in 36-48 hours. Clinical Quality Measures DVT/VTE Risk/Contraindication: Risk Factor Score Per Nursin RFS Level Per Nursing on Admit: 4+=Very High Copy Copies To 1: JOAO KULKARNI MD, MARGARET E DO Mar 20, 2018 09:16
[2018-03-20] MEDS: POTASSIUM CL 10MEQ/50ML IVPB 50 ML IV SCH ×7 (09:48→18:28)
[2018-03-20] MEDS ORDERED: QUEtiapine 25 MG (SEROquel) TAB IMMEDIATE RELEASE PO PRN (16:00)
[2018-03-20] MEDS ORDERED: clonazePAM 0.5 MG (KlonoPIN) TAB PO PRN (16:00)
[2018-03-20 16:10] VITALS: BP 144/99
[2018-03-20] MEDS: cefTRIAXone FOR IV USE 2,000 MG in NS (IVPB) 50 ML IV SCH (16:27)
[2018-03-20] MEDS: D5 1/2 NS 1000 ML IV SOLUTION 1,000 ML IV SCH (18:28)
[2018-03-20] MEDS: PROPRANOLOL 20 MG (INDERAL) TABLET PO SCH ×2 (20:31→20:38)
[2018-03-20] MEDS: MONTELUKAST 10 MG (SINGULAIR) TAB PO SCH ×2 (20:31→20:38)
[2018-03-20] MEDS: VANCOMYCIN INJECTION 1,500 MG in NS IV 500 ML 500 ML IV SCH (20:32)
[2018-03-21] MEDS: LORazepam INJ 2 MG/ML (ATIVAN) VIAL IVP PRN (00:21)
[2018-03-21 00:48] VITALS: BP 144/91
[2018-03-21 05:20] LABS: BASOPHILS % (AUTO) 0 % (0-10); EOSINOPHILS # (AUTO) 0.2 10^3/uL (0.0-0.3); EOSINOPHILS % (AUTO) 2 % (0-10); HEMATOCRIT 42 % (40-54); HEMOGLOBIN 14.5 G/DL (13.3-17.7); LYMPHOCYTES # (AUTO) 1.1 X 10^3 (1.0-4.0); LYMPHOCYTES % (AUTO) 8 % (12-44); MEAN CORPUSCULAR HEMOGLOBIN 29 PG (25-34); MEAN CORPUSCULAR HGB CONC 34 G/DL (32-36); MEAN CORPUSCULAR VOLUME 85 FL (80-99); MEAN PLATELET VOLUME 11.2 FL (7.4-10.4); MONOCYTES # (AUTO) 1.2 X 10^3 (0.0-1.0); MONOCYTES % (AUTO) 9 % (0-12); NEUTROPHILS # (AUTO) 10.7 X 10^3 (1.8-7.8); NEUTROPHILS % (AUTO) 81 % (42-75); PLATELET COUNT 275 10^3/uL (130-400); RED BLOOD COUNT 4.93 10^6/uL (4.35-5.85); RED CELL DISTRIBUTION WIDTH 12.6 % (10.0-14.5); WHITE BLOOD COUNT 13.2 10^3/uL (4.3-11.0)
[2018-03-21 05:41] LABS: MAGNESIUM 2.2 MG/DL (1.8-2.4); PHOSPHORUS 3.5 MG/DL (2.3-4.7)
[2018-03-21 05:43] LABS: ALANINE AMINOTRANSFERASE 48 U/L (0-55); ALBUMIN 3.9 GM/DL (3.2-4.5); ALKALINE PHOSPHATASE 37 U/L (40-136); BILIRUBIN,TOTAL 0.7 MG/DL (0.1-1.0); BUN/CREATININE RATIO 10; CALCIUM 9.5 MG/DL (8.5-10.1); CARBON DIOXIDE 21 MMOL/L (21-32); CHLORIDE 103 MMOL/L (98-107); CREATININE SERUM 0.79 MG/DL (0.60-1.30); GFR ESTIMATED > 60; GLUCOSE 128 MG/DL (70-105); SODIUM 140 MMOL/L (135-145); TOTAL PROTEIN 6.8 GM/DL (6.4-8.2)
[2018-03-21] MEDS: PANTOPRAZOLE 20 MG TABLET (PROTONIX) PO SCH (06:39)
[2018-03-21] MEDS ORDERED: LURASIDONE 40 MG (LATUDA) TABLET NON-FORM PO SCH (07:00)
[2018-03-21 08:00] VITALS: BP 119/69
[2018-03-21] MEDS: PROPRANOLOL 20 MG (INDERAL) TABLET PO SCH (08:32)
[2018-03-21] MEDS: cefTRIAXone FOR IV USE 2,000 MG in NS (IVPB) 50 ML IV SCH (08:32)
[2018-03-21] MEDS: VANCOMYCIN INJECTION 1,500 MG in NS IV 500 ML 500 ML IV SCH (09:34)
--- NOTE | 2018-03-21 10:11 | Progress Note (SOAP) ---
Subjective Subjective/Events-last exam Patient has remained afebrile; last fever was 03/19 at 2225. Patient had an episode of emesis last night, but has eaten well all day. He reports that his dad came to visit earlier today, and the patient is sitting up to eat dinner at the time of exam. He was somewhat hypertensive overnight, but he had refused his night time blood pressure medication. No neck stiffness with flexion today , continues to have no photophobia. Patient's blood cultures and all sensitivities were resulted late this afternoon, and patient's father has been contacted, as the patient is okay to be discharged with oral antibiotics tonight. No growth on viral culture from CSF, but final results will take several more days to return. Review of Systems Date Seen by Provider: Mar 21, 2018 Time Seen by Provider: 17:35 General: No Chills, No Night Sweats HEENT: No Head Aches, No Eye Pain, No Dysphasia Pulmonary: No Cough Cardiovascular: No: Chest Pain Gastrointestinal: Vomiting, Diarrhea; No: Abdominal Pain Musculoskeletal: No: neck pain Neurological: No: Change in speech, Seizures Focused Exam Time of Focused Exam: 09:00 Objective Exam Last Set of Vital Signs Vital Signs Date Time Temp Pulse Resp B/P (MAP) Pulse Ox O2 Delivery O2 Flow Rate FiO2 03/21/18 09:00 92 Room Air 03/21/18 08:00 98.2 101 22 119/69 (86) 03/17/18 16:00 1.50 Capillary Refill : Less Than 3 Seconds I&O Intake and Output 03/21/18 00:00 Intake Total 2945 ml Output Total 1465 ml Balance 1480 ml Intake Oral 980 ml IV Total 1965 ml Output Urine Total 1225 ml Emesis 240 ml # Bowel Movements 3 General: Alert, Cooperative, No Acute Distress HEENT: Atraumatic, EOMI, Mucous Memb Moist/[place] Neck: Supple, No Thyromegaly Lungs: Clear to Auscultation, Normal Air Movement Heart: Regular Rate, Normal S1, Normal S2 Abdomen: Normal Bowel Sounds, Soft, No Tenderness Extremities: No Clubbing, No Cyanosis Skin: No Rashes, No Significant Lesion Neuro: Normal Speech, Normal Tone, Sensation Intact, Cranial Nerves 3-12 NL Psych/Mental Status: Mental Status NL (baseline for patient), Mood NL Results/Procedures Lab Laboratory Tests 03/21/18 05:00: White Blood Count 13.2H, Red Blood Count 4.93, Hemoglobin 14.5, Hematocrit 42, Mean Corpuscular Volume 85, Mean Corpuscular Hemoglobin 29, Mean Corpuscular Hemoglobin Concent 34, Red Cell Distribution Width 12.6, Platelet Count 275, Mean Platelet Volume 11.2H, Neutrophils (%) (Auto) 81H, Lymphocytes (%) (Auto) 8L, Monocytes (%) (Auto) 9, Eosinophils (%) (Auto) 2, Basophils (%) (Auto) 0, Neutrophils # (Auto) 10.7H, Lymphocytes # (Auto) 1.1, Monocytes # (Auto) 1.2H, Eosinophils # (Auto) 0.2, Basophils # (Auto) 0.0, Sodium Level 140, Potassium Level 3.0L, Chloride Level 103, Carbon Dioxide Level 21, Anion Gap 16H, Blood Urea Nitrogen 8, Creatinine 0.79, Estimat Glomerular Filtration Rate > 60, BUN/ Creatinine Ratio 10, Glucose Level 128H, Calcium Level 9.5, Corrected Calcium 9.6, Phosphorus Level 3.5, Magnesium Level 2.2, Total Bilirubin 0.7, Aspartate Amino Transf (AST/SGOT) 23, Alanine Aminotransferase (ALT/SGPT) 48, Alkaline Phosphatase 37L, Total Protein 6.8, Albumin 3.9 Microbiology 03/17/18 Blood Culture - Preliminary, Resulted Enterobacter cloacae complex Acinetobacter baumannii/c. com Staphylococcus hominis Bacillus sp not B. anthracis See Comments 03/17/18 Virus Culture - Preliminary, Resulted Sent To [facility] 03/19/18 C. difficile [facility] Antigen & Toxins - Final, Complete 03/17/18 MRSA Screen - Final, Complete MRSA not isolated 03/17/18 Urine Culture - Final, Complete NO GROWTH Procedures Lumbar Puncture: Elevated Opening pressure, labs pending Assessment/Plan Assessment/Plan Assessment & Plan 37 yo M with baseline MR that presented to ER with severe sepsis of unknown source Severe Sepsis: -VS stablized. Labs improved with sepsis hydration including normalized lactic acid. LP viral culture pending. Will continue rocephin 2G BID until tomorrow and then plan on going to 1 gram daily. Blood cultures growing Gram - Bacillis. Discussed antibiotic choice with pharm and will continue vancomycin at this time until cultures finalize. 03/19 -WBC 9.9 --> 10.8 -Tmax 100.4 over last 24 hours (1110 03/18/18) -blood cultures: 2/2 positive for gram negative bacillus, further ID and sensitivities pending; 1/2 positive also for gram positive cocci and gram positive rods -LP with viral cx still pending -given that patient had hospitalization 02/17-02/21, will change rocephin to 2 grams cefepime Q8H for increased pseudomonal coverage; continue vanc until blood cultures have been finalized -urine cx neg -throat cx neg -influenza neg -tick serologies, hepatitis panel pending 03/20 -WBC 10.8 --> 9.7 -Tmax over last 24 hours 102.2 (2225 03/19/18) -blood cultures -Garetha ev -stop cefepime, restart Rocephin 2 grams q24H -once pt has been afebrile for 48 hours, pt can be transitioned to oral abx, sensitive to Cipro, Bactrim, Augmentin -pt will need 7-14 days of abx total -second blood culture with gram positive cocci and rods with further ID and sensitivities still pending; unlikely to be causative organism, but will continue vanc until all blood cultures finalized -tick serologies, hepatitis panel still pending -CSF culture negative, CSF viral culture still pending -will check HIV, HSV, [place] with AM labs; if patient remains febrile, will reculture patient in AM 3 -afebrile overnight, last temp 03/19 @ 2225 -WBC 10.8 --> 9.7 --> 13.2 -urine cx neg -throat cx neg -c diff neg -tick serologies, hepatitis panel, HIV, HSV, [place] Virus results pending -CSF cx neg -CSF viral cx NGTD -- final cx results take 10 days -blood cultures finalized -Garetha ev (right AC) -stop cefepime, restart Rocephin 2 grams q24H -once pt has been afebrile for 48 hours, pt can be transitioned to oral abx, sensitive to Cipro, Bactrim, Augmentin -pt will need 7-14 days of abx total -second blood culture (left AC) 1. Enterobacter cloacae complex 2. Acinetobacter baumanii 3. Staphylococcus hominis 4. Bacillus species, not anthracis -all blood culture sensitivities show that all organisms are sensitive to both Cipro and Bactrim -patient has been afebrile for 43 hours, and he has received his daily dose of rocephin for today, as well as vancomycin -will discharge patient home on Bactrim DS BID for a total of 10 days for full treatment; received 5 days of abx, but one day was Cefepime and not Rocephin Acute Renal Failure: resolved with IVFs. MR: -Patient is not quite back to [facility] as he normally answers simple questions 03/19 -pt appears to be close to baseline per report from his father, who arrived shortly after the time of exam Anxiety: Continue home meds 03/20 -patient's home medication - clonazepam 0.5 daily PRN was not continued on admission, medication ordered -ativan PRN agitation or anxiety -seroquel 50 mg at HS PRN 03/21 -patient has been at his baseline status both yesterday and today per report, will discharge on previous home medication without change in dose Anemia 03/19 -Hgb 12 --> 12.9 -likely dilutional -will check CBC in AM 03/20 -Hgb 12 --> 12.9 --> 13.2 03/21 -Hgb 12 --> 12.9 --> 13.2 --> 14.5 s/p Lumbar Puncture -CSF slightly cloudy, colorless, WBC 3, RBC 637, Glucose 88, Total Protein 34 -CSF viral cx pending, final results take 10 days for confirmed negative result -cx negative -pt with mild discomfort when neck flexed that has now completely resolved; continues to have no photophobia -will check HSV, HIV, [place], results pending -patient to remain in droplet precautions for potential viral meningitis Hypokalemia 03/20 -2.9 --> 2.7 -pt did not take oral potassium yesterday -replace with a total of 80 mEq IVPB over the course of the day/night -recheck in AM 03/21 -2.9 --> 2.7 --> 3.0 -replace with 40 mEq IVPB and 40 mEq PO -continues to have occasional diarrhea stools, and had some emesis last night, likely contributing to continued low potassium Urinary Retention 03/20 -montelongo dc'ed yesterday, pt unable to void after 12 hours -montelongo replaced early this AM 03/21 -DC montelongo today Hypertension 03/20 -pt on propranolol BID at home; initially held due to sepsis -will resume with hold parameters 03/21 -pt with hypertension last night, refused his oral medications -pt has taken oral medication today and pressure has been better controlled -discharge on same home medication and dose Recommendations are to convert to PO abx when patient has been fever free for 48 hours; at the time of exam all sensitivities for blood cultures have returned and patient has been afebrile for 43 hours, and is not due for additional IV abx until tomorrow. Will discharge home on PO abx and have patient follow up with Dr. Patel on 03/24. Discussed with father that some of the testing results were not back yet, but many would be back by his scheduled follow up with Dr. Patel, and it is my belief that the infection in his blood stream is what caused his symptoms. Clinical Quality Measures DVT/VTE Risk/Contraindication: Risk Factor Score Per Nursin RFS Level Per Nursing on Admit: 4+=Very High Copy Copies To 1: JOAO PATEL MD, MARGARET E DO Mar 21, 2018 10:11
[2018-03-21] MEDS ORDERED: KCL 20 MEQ TAB (K-DUR) PO NR (10:15)
[2018-03-21] MEDS: POTASSIUM CL 10MEQ/50ML IVPB 50 ML IV SCH ×4 (10:36→13:26)
[2018-03-21] MEDS: D5 1/2 NS 1000 ML IV SOLUTION 1,000 ML IV SCH (15:26)
[2018-03-21 15:35] VITALS: BP 152/89
--- NOTE | 2018-03-21 17:49 | Discharge Summary ---
Diagnosis/Chief Complaint Date of Admission Mar 17, 2018 at 08:59 Date of Discharge 03/21/18 Admission Diagnosis Admission Diagnosis Severe Sepsis Altered Mental Status Acute Kidney Injury Transaminitis Hypertension Mental Retardation Essential Tremor Anxiety Discharge Diagnosis 37 yo M with baseline MR that presented to ER with severe sepsis of unknown source Severe Sepsis: -VS stablized. Labs improved with sepsis hydration including normalized lactic acid. LP viral culture pending. Will continue rocephin 2G BID until tomorrow and then plan on going to 1 gram daily. Blood cultures growing Gram - Bacillis. Discussed antibiotic choice with pharm and will continue vancomycin at this time until cultures finalize. 03/19 -WBC 9.9 --> 10.8 -Tmax 100.4 over last 24 hours (1110 03/18/18) -blood cultures: 2/2 positive for gram negative bacillus, further ID and sensitivities pending; 1/2 positive also for gram positive cocci and gram positive rods -LP with viral cx still pending -given that patient had hospitalization 02/17-02/21, will change rocephin to 2 grams cefepime Q8H for increased pseudomonal coverage; continue vanc until blood cultures have been finalized -urine cx neg -throat cx neg -influenza neg -tick serologies, hepatitis panel pending 03/20 -WBC 10.8 --> 9.7 -Tmax over last 24 hours 102.2 (2225 03/19/18) -blood cultures -Pantoea agglomerans -stop cefepime, restart Rocephin 2 grams q24H -once pt has been afebrile for 48 hours, pt can be transitioned to oral abx, sensitive to Cipro, Bactrim, Augmentin -pt will need 7-14 days of abx total -second blood culture with gram positive cocci and rods with further ID and sensitivities still pending; unlikely to be causative organism, but will continue vanc until all blood cultures finalized -tick serologies, hepatitis panel still pending -CSF culture negative, CSF viral culture still pending -will check HIV, HSV, West Nile with AM labs; if patient remains febrile, will reculture patient in AM 3 -afebrile overnight, last temp 03/19 @ 2225 -WBC 10.8 --> 9.7 --> 13.2 -urine cx neg -throat cx neg -c diff neg -tick serologies, hepatitis panel, HIV, HSV, West Nile Virus results pending -CSF cx neg -CSF viral cx NGTD -- final cx results take 10 days -blood cultures finalized -Eliotoea jeffans (right AC) -stop cefepime, restart Rocephin 2 grams q24H -once pt has been afebrile for 48 hours, pt can be transitioned to oral abx, sensitive to Cipro, Bactrim, Augmentin -pt will need 7-14 days of abx total -second blood culture (left AC) 1. Enterobacter cloacae complex 2. Acinetobacter baumanii 3. Staphylococcus hominis 4. Bacillus species, not anthracis -all blood culture sensitivities show that all organisms are sensitive to both Cipro and Bactrim -patient has been afebrile for 43 hours, and he has received his daily dose of rocephin for today, as well as vancomycin -will discharge patient home on Bactrim DS BID for a total of 10 days for full treatment; received 5 days of abx, but one day was Cefepime and not Rocephin Acute Renal Failure: resolved with IVFs. MR: -Patient is not quite back to [facility] as he normally answers simple questions 03/19 -pt appears to be close to baseline per report from his father, who arrived shortly after the time of exam Anxiety: Continue home meds 03/20 -patient's home medication - clonazepam 0.5 daily PRN was not continued on admission, medication ordered -ativan PRN agitation or anxiety -seroquel 50 mg at HS PRN 03/21 -patient has been at his baseline status both yesterday and today per report, will discharge on previous home medication without change in dose Anemia 03/19 -Hgb 12 --> 12.9 -likely dilutional -will check CBC in AM 03/20 -Hgb 12 --> 12.9 --> 13.2 03/21 -Hgb 12 --> 12.9 --> 13.2 --> 14.5 s/p Lumbar Puncture -CSF slightly cloudy, colorless, WBC 3, RBC 637, Glucose 88, Total Protein 34 -CSF viral cx pending, final results take 10 days for confirmed negative result -cx negative -pt with mild discomfort when neck flexed that has now completely resolved; continues to have no photophobia -will check HSV, HIV, West Nile, results pending -patient to remain in droplet precautions for potential viral meningitis Hypokalemia 03/20 -2.9 --> 2.7 -pt did not take oral potassium yesterday -replace with a total of 80 mEq IVPB over the course of the day/night -recheck in AM 03/21 -2.9 --> 2.7 --> 3.0 -replace with 40 mEq IVPB and 40 mEq PO -continues to have occasional diarrhea stools, and had some emesis last night, likely contributing to continued low potassium Urinary Retention 03/20 -montelongo dc'ed yesterday, pt unable to void after 12 hours -montelongo replaced early this AM 03/21 -DC montelongo today Hypertension 03/20 -pt on propranolol BID at home; initially held due to sepsis -will resume with hold parameters 03/21 -pt with hypertension last night, refused his oral medications -pt has taken oral medication today and pressure has been better controlled -discharge on same home medication and dose Recommendations are to convert to PO abx when patient has been fever free for 48 hours; at the time of exam all sensitivities for blood cultures have returned and patient has been afebrile for 43 hours, and is not due for additional IV abx until tomorrow. Will discharge home on PO abx and have patient follow up with Dr. Kulkarni on 03/24. Discussed with father that some of the testing results were not back yet, but many would be back by his scheduled follow up with Dr. Kulkarni, and it is my belief that the infection in his blood stream is what caused his symptoms. Chief Complaint/HPI Chief Complaint/HPI Mr. Putnam is a 37 yo M with a PMH of MR, GERD, asthma who presented with AMS and found to have severe sepsis. No history is able to be obtained from the pt given his MR except that he had felt fevers. He was found wandering around the neighborhood. He was covered with grass and dirt on presentation with knee abrasions. Temperature on presentation was 103.2. No other history is available for this current admission at the moment. Discharge Summary-Simple/Stand Procedures Lumbar Puncture: Elevated Opening pressure, labs pending Consultations Dr. Flores Anesthesia for LP Discharge Physical Examination Allergies: Coded Allergies: NKANo Known Allergies (Unverified Allergy, Mild, 09/22/09) Vitals & I&Os Vital Sign - Last 12Hours Date Time Temp Pulse Resp B/P (MAP) Pulse Ox O2 Delivery O2 Flow Rate FiO2 03/21/18 15:35 99.5 105 20 152/89 (110) 96 Room Air 03/17/18 16:00 1.50 Intake and Output 03/21/18 00:00 Intake Total 2895 ml Output Total 765 ml Balance 2130 ml Hospital Course See final discharge diagnosis. Labs Microbiology 03/19/18 C. difficile [facility] Antigen & Toxins - Final, Complete Laboratory Tests Test 03/20/18 04:35 03/21/18 05:00 Range/Units White Blood Count 9.7 13.2 H 4.3-11.0 10^3/uL Red Blood Count 4.51 4.93 4.35-5.85 10^6/uL Hemoglobin 13.2 L 14.5 13.3-17.7 G/DL Hematocrit 39 L 42 40-54 % Mean Corpuscular Volume 87 85 80-99 FL Mean Corpuscular Hemoglobin 29 29 25-34 PG Mean Corpuscular Hemoglobin Concent 34 34 32-36 G/DL Red Cell Distribution Width 12.4 12.6 10.0-14.5 % Platelet Count 233 275 130-400 10^3/uL Mean Platelet Volume 11.8 H 11.2 H 7.4-10.4 FL Neutrophils (%) (Auto) 81 H 81 H 42-75 % Lymphocytes (%) (Auto) 9 L 8 L 12-44 % Monocytes (%) (Auto) 8 9 0-12 % Eosinophils (%) (Auto) 2 2 0-10 % Basophils (%) (Auto) 0 0 0-10 % Neutrophils # (Auto) 7.9 H 10.7 H 1.8-7.8 X 10^3 Lymphocytes # (Auto) 0.9 L 1.1 1.0-4.0 X 10^3 Monocytes # (Auto) 0.8 1.2 H 0.0-1.0 X 10^3 Eosinophils # (Auto) 0.2 0.2 0.0-0.3 10^3/uL Basophils # (Auto) 0.0 0.0 0.0-0.1 10^3/uL Sodium Level 142 140 135-145 MMOL/L Potassium Level 2.7 L 3.0 L 3.6-5.0 MMOL/L Chloride Level 107 103 98-107 MMOL/L Carbon Dioxide Level 23 21 21-32 MMOL/L Anion Gap 12 16 H 5-14 MMOL/L Blood Urea Nitrogen 5 L 8 7-18 MG/DL Creatinine 0.75 0.79 0.60-1.30 MG/DL Estimat Glomerular Filtration Rate > 60 > 60 BUN/Creatinine Ratio 7 10 Glucose Level 124 H 128 H 70-105 MG/DL Calcium Level 8.8 9.5 8.5-10.1 MG/DL Corrected Calcium 9.0 9.6 8.5-10.1 MG/DL Phosphorus Level 3.6 3.5 2.3-4.7 MG/DL Magnesium Level 2.2 2.2 1.8-2.4 MG/DL Total Bilirubin 0.8 0.7 0.1-1.0 MG/DL Aspartate Amino Transf (AST/SGOT) 32 23 5-34 U/L Alanine Aminotransferase (ALT/SGPT) 45 48 0-55 U/L Alkaline Phosphatase 33 L 37 L 40-136 U/L Total Protein 6.4 6.8 6.4-8.2 GM/DL Albumin 3.7 3.9 3.2-4.5 GM/DL Pending Labs Tick Serologies Hepatitis Panel HIV HSV West Nile Virus CSF Viral Culture Discharge Condition at discharge stable Instructions to patient/family Please see electronic discharge instructions given to patient. Discharge Medications Reviewed and agree with Discharge Medication list on patient's Discharge Instruction sheet Clinical Quality Measures DVT/VTE Risk/Contraindication: Risk Factor Score Per Nursin RFS Level Per Nursing on Admit: 4+=Very High Copy Copies To 1: JOAO KULKARNI MD, MARGARET E DO Mar 21, 2018 17:49
[2018-03-21] MEDS ORDERED: SULF-222 PO (17:52)
--- NOTE | 2018-03-21 18:14 | Discharge Instructions ---
Discharge [facility] Discharge Medications New, Converted or Re-Newed RX: Transmitted to Pharmacy New Medications: Sulfamethoxazole/Trimethoprim (Sulfamethoxazole-Tmp Ds Tablet) 1 Each Tablet 1 EACH PO BID for 10 Days, #20 TAB 0 Refills Continued Medications: Clonazepam (Clonazepam) 0.5 Mg Tablet 0.5 MG PO DAILY PRN for ANXIETY, TAB Lurasidone HCl (Latuda) 60 Mg Tablet 60 MG PO DAILY, TAB Montelukast Sodium (Montelukast Sodium) 10 Mg Tablet 10 MG PO HS, TAB Omeprazole (Omeprazole) 20 Mg Capsule.dr 20 MG PO DAILY, CAP Propranolol HCl (Propranolol HCl) 20 Mg Tablet 20 MG PO BID, TAB Patient Instructions Patient Instructions -take medication as prescribed, start taking tomorrow -keep follow up appointment as scheduled Goal/Follow Up Appt: Dr. Patel, Mar 24 at 9:40 am Return to The Hospital For: chest pain or pressure, shortness of breath, temp >101 that does not come down with tylenol, nausea or vomiting that makes you unable to keep down clear liquid or medication and lasts longer than 12-24 hours, severe pain uncontrolled by normal measures Activity & Diet Discharge Diet: Low Sodium Diet Activity as Tolerated: Yes Orders-Post D/C & Referrals Pneu Vac Indicated: Yes Copy Copies To 1: JOAO PATEL MD, MARGARET E DO Mar 21, 2018 18:14
[2018-03-21 18:35] VITALS: BP 152/89
[2018-03-21] MEDS ORDERED: TROUGH ORDER-PHARMACY XX NR (20:00)
[2018-03-22 06:48] LABS: HEPATITIS C ANTIBODY C Non-Reactive (Non-Reactive)
== END 2018-03-21 08:30 | disposition home or self-care (01) | DRG 872 ==
LOC: EDUNIT# 06:53 → ER 06:55 → ICU 08:59 → 4TH 03-18 11:05
PROVIDERS: ADMIT Family Medicine; ATTEND Family Medicine
PROC: 009U3ZX Drainage of Spinal Canal, Percutaneous Approach, Diagnostic (ICD-10-PCS; principal; 2018-03-17)
DX: A41.59 Other Gram-negative sepsis (principal); A41.89 Other specified sepsis; N17.9 Acute kidney failure, unspecified; R65.20 Severe sepsis without septic shock; E86.0 Dehydration; F79 Unspecified intellectual disabilities; E87.0 Hyperosmolality and hypernatremia; E87.8 Other disorders of electrolyte and fluid balance, not elsewhere classified; E87.6 Hypokalemia; R33.9 Retention of urine, unspecified; S80.211A Abrasion, right knee, initial encounter; S80.212A Abrasion, left knee, initial encounter; J45.909 Unspecified asthma, uncomplicated; G25.0 Essential tremor; K21.9 Gastro-esophageal reflux disease without esophagitis; I10 Essential (primary) hypertension; E66.9 Obesity, unspecified; Z68.41 Body mass index [BMI] 40.0-44.9, adult; F42.9 Obsessive-compulsive disorder, unspecified; F41.9 Anxiety disorder, unspecified; F32.9 Major depressive disorder, single episode, unspecified
CPT/HCPCS: 36415; 36569; 70450; 71045; 72125; 72170; 76770; 76937; 80053; 80074; 80306; 80320; 81000; 82945; 83605; 83735; 84100; 84157; 85007; 85025; 85027; 85610; 85730; 86666; 86668; 86695; 86696; 86703; 86757; 86788; 86789; 87040; 87070; 87077; 87081; 87088; 87186; 87205; 87252; 87324; 87430; 87449; 87804; 89051; 93005; 96361; 96365; 96367

== ENCOUNTER 2018-03-27 13:47 | Emergency (ER) | payer MEDICARE, MEDICAID ==
[~2018-03-27] VITALS: Ht 162.6 cm; Wt 90.7 kg
[~2018-03-27 13:47] MED LIST changes: +SULF-222 PO
--- OUTSIDE RECORDS SUMMARY | 2018-03-27 14:02 | XMS REPORT ---
Author Author JOAO KULKARNI [facility] Address [address] [place] [address] Care Team Providers Care Home Furnishings Sales Representative Name Role Phone JOAO KULKARNI Unavailable PROBLEMS Type Condition ICD9-CM Code [id number] Code Onset Dates Condition Status SNOMED Code Problem Obsessive compulsive disorder F42 Active 468086721 Problem Major depressive disorder, recurrent episode, in partial remission F33.41 Active 31607026 Problem Major depression, recurrent F33.9 Active 81907448 Problem Essential tremor G25.0 Active 571984500 Problem Dysfunction of Eustachian tube 381.81 Active 94832337 Problem Coarse tremors G25.2 Active 04600869 Problem Acute suppurative otitis media without spontaneous rupture of eardrum 382.00 Active 03368619 Problem Unspecified otalgia 388.70 Active 89344178 Problem Body mass index (BMI) of 40.0-44.9 in adult Z68.41 Active 393692595 Problem Morbid (severe) obesity due to excess calories E66.01 Active 79048148940534 Problem MR (mental retardation) F79 Active 530237723 Problem Hyperlipidemia, unspecified hyperlipidemia type E78.5 Active 03631404 Problem Depressive disorder, not elsewhere classified 311 Active 29405063 Problem Obsessive-compulsive disorders 300.3 Active 824150426 Problem Moderate mental retardation 318.0 Active 04355317 Problem Mild mental retardation 317 Active 43725225 Problem Unspecified psychosis 298.9 Active 88651198 Problem Unspecified episodic mood disorder 296.90 Active 421963379 Problem Encounter for long-term (current) use of other medications V58.69 Active 812971522 Problem Generalized anxiety disorder 300.02 Active 70334498 Problem Major depressive disorder, recurrent episode, moderate 296.32 Active 83634750 Problem Wheezing 786.07 Active 44393290 Problem Anxiety state, unspecified 300.00 Active 275748061 Problem Major depressive disorder, recurrent episode, mild 296.31 Active [id number] ALLERGIES No Information ENCOUNTERS Encounter Location Date Diagnosis [facility] [address] [address] Apr, [facility] [id number] [place] [address]194- 3821 Mar, [facility] [id number] [place] [address] 34884- 5368 Feb, [facility] [id number] [place] [address] 98080- 9150 Feb, [address]30.0 [facility] [id number] [place] [address] 09267- 5776 Feb, Dysuria R30.0 ; Acute cystitis without hematuria N30.00 and Tachycardia R00.0 [facility] [id number] [place] [address] 94712 -8720 Feb, Coarse tremors G25.2 and BMI 45.0-49.9, adult Z68.42 [facility] [id number] [place] [address] 51374- 6315 Jan, [facility] [id number] [place] [address] 50856- 4030 Jan, Major depressive disorder, recurrent episode, in partial remission F33.41 [facility] [id number] [place] [address] 07531- 5225 Dec, Hyperglycemia R73.9 ; Hyperlipidemia, unspecified hyperlipidemia type E78.5 ; Body mass index (BMI) of 40.0-44.9 in adult Z68.41 and MR (mental retardation) F79 [facility] [id number] [place] [address] 13007- 1711 November, Major depressive disorder, recurrent episode, in partial remission F33.41 ; Mental retardation F79 ; Obsessive compulsive disorder F42 and BMI 50.0-59.9, adult Z68.43 [facility] [id number] [place] [address] 36600- 5527 Oct, [facility] [id number] [address] Jul, Acute nasopharyngitis J00 and Vomiting, intractability of vomiting not specified, presence of nausea not specified, unspecified vomiting type R11.10 [facility] [address] [address] 17[address] Jul, BMI 45.0-49.9, adult Z68.42 ; Major depressive disorder, recurrent episode, in partial remission F33.41 ; Mental retardation F79 and Obsessive compulsive disorder F42 [place] [facility] [address] [place] [address] 41092- 2652 Jul, High risk medication use Z79.899 [facility] [address] [place] [address] 41546- 6937 Jun, Morbid (severe) obesity due to excess calories E66.01 ; Body mass index (BMI) of 40.0-44.9 in adult Z68.41 ; Mental retardation F79 ; Elevated blood pressure reading R03.0 ; Screening for diabetes mellitus (DM) Z13.1 and Screening for lipid disorders Z13.220 [place] [address] [place] [address] 73849- 0783 May, High risk medication use Z79.899 ; Major depressive disorder , recurrent episode, in partial remission F33.41 ; Mental retardation F79 and Obsessive compulsive disorder F42 [facility] [facility] [address] [address] May, [facility] [id number] [address] 2545 Apr, [facility] [id number] [id number] Mar, [facility] [address] [facility] [id number] [address] Jan, Major depression, recurrent F33.9 ; Mental retardation F79 and Obsessive compulsive disorder F42 [place] [address] [address] November, Major depression, recurrent F33.9 and Obsessive compulsive disorder F42 [facility] [address] [address] Sep, [facility] [address] [address]- 2829 Jun, Obsessive compulsive disorder F42 ; Mental retardation F79 and Major depressive disorder, recurrent episode, in partial remission F33.41 [facility] [address] [address] 56[address] Apr, [facility] [id number] [place] [address] 21291- 2937 Apr, Major depression, recurrent F33.9 ; Obsessive compulsive disorder F42 and Mental retardation F79 [facility] [address] [address] 26[address] Jan, [facility] [address] [address]- 4350 Jan, Major depression, recurrent F33.9 ; Obsessive compulsive disorder F42 and Mental retardation F79 [facility] [address] [address] 98[address] Dec, [facility] [address] [address] November, [facility] [address] [address] 97[address] November, [facility] [address] [address]- 1487 Oct, [facility] [address] [address]- 2172 Oct, Obsessive compulsive disorder F42 ; Major depression, recurrent F33.9 and Mental retardation F79 [facility] [address] [address]- 0[address] 16 Sep, 2015 [facility] [address] [address]- 0387 17 Aug, 2015 [facility] [id number] [place] [address] 44293- 6736 15 Aug, 2015 [facility] [address] [address]- [address] Aug, [facility] [id number] [place] [address] 92870- 1649 Jul, [facility] [address] [place] [address] 25246- [address] Jul, [facility] [id number] [place] [address] 26393- 1128 Jul, [facility] [id number] [place] [address] 66726- 9552 Jun, Obsessive compulsive disorder F42 ; Major depression, recurrent F33.9 and Mental retardation F79 [facility] [address] [address]- 9842 Jun, [facility] [id number] [place] [address] 40588- 4175 Jun, [facility] [address] [address]- 3048 May, [facility] [address] [place] [address] 81363- 6706 15 Apr, 2015 [facility] [address] [address]674 30 Mar, 2015 Generalized anxiety disorder 300.02 and Major depressive disorder, recurrent episode, mild 296.31 [facility] [address] [address] 14 Mar, 2015 [facility] [address] [address]- 7339 13 Feb, 2015 [facility] [address] [id number] [place] [address]- 6754 Jan, [facility] [address] [id number] [place] [address] Dec, Generalized anxiety disorder 300.02 and Depressive disorder , not elsewhere classified 311 [facility] [address] [id number] [place] [address]- 6537 14 Oct, 2014 [facility] [address] [id number] [place] [address]- 8754 Oct, [facility] [address] [id number] [place] [address]- 9759 Sep, [facility] [address] [id number] [place] [address]- 7543 Sep, [facility] [id number] [place] [address]- 2111 Jun, [facility] [address] [id number] [place] [address]- 3451 Jun, [facility] [address] [id number] [place] [address]- 8816 May, [facility] [address] [id number] [place] [address]- 7056 May, [facility] [address] [id number] [place] [address]- 3450 May, [facility] [address] [id number] [place] [address]- 4394 Apr, [facility] [place] [facility] [address] [id number] [place] [address]398 Apr, [facility] [place] [facility] [address] [facility] [id number] [place] [address]- 0892 Feb, [facility] [place] [facility] [address] [facility] [id number] [place] 5229 Jan, [facility] [place] [facility] [address] [id number] [place] [address]- 1417 Jan, [facility] [place] [facility] [address] [id number] [place] [address]- 0647 Dec, [facility] [place] [facility] [address] [id number] [place] [address]- 0722 Dec, [facility] [place] [facility] [address] [id number] [place] [address]- 3535 Oct, [facility] [place] [facility] [address] [id number] [place] [address]- 9504 Oct, [facility] [place] [facility] [address] [id number] [place] [address]- 7632 Oct, [facility] [place] [facility] [address] [id number] [place] [address]- 4836 Oct, [facility] [place] [facility] [address] [id number] [place] [address]- 7051 Sep, [facility] [place] [facility] [address] [id number] [place] [address]- 4903 Sep, [facility] [place] [facility] [address] [id number] [place] [address]- 4783 Sep, [facility] [place] [facility] [address] [id number] [place] [address]- 5604 Sep, [facility] [place] [facility] [address] [id number] [place] [address]- 4402 Aug, [facility] [place] [facility] [address] [id number] [place] [address]- 9624 Aug, [facility] [place] [facility] [address] [id number] [place] [address] Aug, [facility] [place] [facility] [address] [id number] [place] 6423 Aug, [facility] [place] [facility] [address] [id number] [place] [address]- 4525 Jul, [facility] [place] [facility] [address] [id number] [place] [address]- 5700 Jul, [facility] [place] [facility] [address] [id number] [place] [address]- 3585 Jul, [facility] [place] [facility] [address] [id number] [place] [address]- 6636 Jul, [facility] [place] [facility] [address] [id number] [place] [address]- 3483 Jul, [facility] [place] [facility] [address] [id number] [place] [address]- 4900 Jul, [facility] [place] [facility] [address] [id number] [place] [address]- 9057 Apr, [facility] [place] [facility] [address] [id number] [place] [address]- 0937 Apr, [facility] [place] [facility] [address] [id number] [address]- 7909 Apr, [facility] [place] [facility] [address] [id number] [place] [address]- 4637 Apr, [facility] [place] [facility] [address] [id number] [address]- 6570 Apr, [facility] [place] [facility] [address] [id number] [address]- 5841 Apr, [facility] [place] [facility] [address] [id number] [address]- 9644 Apr, [facility] [place] [facility] [address] [id number] [place] [address]- 2989 18 Apr, 2013 [facility] [place] [facility] [address] [id number] [address]- 4876 Apr, [facility] [place] [facility] [address] [id number] [place] [address]- 8535 Apr, [facility] [place] [facility] [address] [id number] [place] [address]- 2858 16 Apr, 2012 [facility] [address] [id number] [place] [address]- 9058 16 Apr, 2012 [facility] [place] [facility] [address] [id number] [place] 4241 16 Apr, 2013 [facility] [address] [id number] [place] [address]- 8063 16 Apr, 2013 [facility] [place] [facility] [address] [id number] [place] [address]- 8267 18 Mar, 2013 [facility] [place] [facility] [address] [id number] [place] [address]- 3573 17 Mar, 2013 [facility] [place] [facility] [address] [id number] [place] [address]- 9756 16 Mar, 2013 [facility] [address] [id number] [place] [address]- 6177 13 Mar, 2013 [facility] [place] [facility] [address] [id number] [place] [address]- 9258 Feb, [facility] [place] [facility] [address] [id number] [place] [address]- 4293 Feb, [facility] [place] [facility] [address] [id number] [place] [address]- 9748 Jan, [facility] [place] [facility] [address] [id number] [place] [address]- 5092 Jan, [facility] [place] [facility] [address] [id number] [place] [address]- 9899 Jan, [facility] [place] [facility] [address] [id number] [place] [address]- 7329 Jan, [facility] [place] [facility] [address] [id number] [place] [address]- 7920 Jan, [facility] [place] [facility] [address] [id number] [place] [address]892 Jan, [facility] [place] [facility] [address] [id number] [place] [address]- 1139 Jan, [facility] [address] [id number] [place] [address]- 8664 Jan, [facility] [address] [id number] [place] [address]- 1222 Dec, [facility] [place] [facility] [address] [id number] [place] [address]- 0288 Dec, [facility] [address] [id number] [place] [address]- 5820 Dec, [facility] [place] [facility] [address] [id number] [place] [address]- 5420 Dec, [facility] [address] [id number] [place] [address]- 8080 Dec, [facility] [address] [id number] [place] [address]- 2969 Dec, [facility] [address] [id number] [place] [address]- 3967 Dec, [facility] [place] [facility] [address] [id number] [place] [address]- 1380 Dec, [facility] [place] [facility] [address] [id number] [place] [address]- 2448 Dec, [facility] [place] [facility] [address] [id number] [place] [address]- 6174 November, [facility] [place] [facility] [address] [id number] [place] [address]- 8813 Oct, [facility] [place] [facility] [address] [id number] [place] [address]- 0194 Oct, [facility] [place] [facility] [address] [id number] [place] [address]- 9569 Oct, [facility] [place] [facility] [address] [id number] [place] [address]- 9319 Oct, [facility] [address] [id number] [place] [address]- 8801 Oct, [facility] [address] [id number] [place] [address]- 9814 Oct, [facility] [address] [id number] [place] [address]- 7045 Aug, [facility] [address] [id number] [place] [address]- 8357 Aug, [facility] [address] [id number] [place] [address]- 0451 Jul, [facility] [address] [id number] [place] [address]- 6225 Jul, [facility] [address] [id number] [place] [address]- 8730 Jul, [facility] [address] [id number] [place] [address]- 5226 Jul, [facility] [address] [id number] [place] [address]- 2871 Jul, [facility] [address] [id number] [place] [address]- 0575 Jul, [facility] [address] [id number] [place] [address]- 3515 Jul, [facility] [address] [id number] [place] [address]- 5611 Jun, [facility] [address] [id number] [place] [address]- 5464 Jun, [facility] [address] [id number] [place] [address]- 6450 Jun, [facility] [address] [id number] [place] [address]- 1300 Jun, [facility] [place] [facility] [address] [id number] [place] [address]- 7505 Jun, [facility] [place] [facility] [address] [id number] [place] [address]- 8456 Apr, [facility] [place] [facility] [address] [id number] [place] [address]- 4825 Apr, [facility] [place] [facility] [address] [id number] [place] [address]- 8643 Apr, [facility] [place] [facility] [address] [id number] [place] [address]- 5773 Mar, [facility] [place] [facility] [address] [id number] [place] [address]- 5208 Feb, [facility] [place] [facility] [address] [id number] [place] [address]- 6403 Jan, [facility] [place] [facility] [address] [id number] [place] [address]- 5644 Jan, [facility] [place] [facility] [address] [id number] [place] [address]- 6932 Dec, [facility] [place] [facility] [address] [id number] [place] [address]- 5650 November, [facility] [place] [facility] [address] [facility] [id number] [place] [address]- 2972 Oct, [facility] [place] [facility] [address] [id number] [place] [address]- 0003 Sep, [facility] [place] [facility] [address] [id number] [place] [address]- 9447 Sep, [facility] [place] [facility] [address] [id number] [place] [address]- 1361 Aug, [facility] [place] [facility] [address] [id number] [place] [address]- 5686 Aug, [facility] [place] [facility] [address] [id number] [place] [address]- 3766 Aug, [facility] [id number] [address]- 2546 Jul, [facility] [address] [address] 2546 Jul, [facility] [address] [id number] [address]- 2546 Jun, [facility] [address] [address]- 2546 Jun, [facility] [id number] [address] 2546 May, [facility] [id number] [address]- 0776 Apr, [facility] [id number] [address]- 4196 Apr, IMMUNIZATIONS No Known Immunizations SOCIAL HISTORY Never Assessed REASON FOR VISIT lab results PLAN OF CARE VITAL SIGNS MEDICATIONS Unknown Medications RESULTS No Results PROCEDURES No Known procedures INSTRUCTIONS MEDICATIONS ADMINISTERED No Known Medications MEDICAL (GENERAL) HISTORY Type Description Date Medical History GERD Surgical History cholecystectomy 2013 Hospitalization History ED [place]- Chest Pain 08/26/2017 Hospitalization History Hospital, UTI/Septic 02/20/18
--- OUTSIDE RECORDS SUMMARY | 2018-03-27 14:03 | XMS REPORT ---
Author Author ANTWAN MARIE Organization [facility] Address [address] [place] [address] Care Team Providers Care Lawyer Criminal Name Role Phone FRANK ANTWAN Unavailable PROBLEMS Type Condition ICD9-CM Code MKM66-HE Code Onset Dates Condition Status SNOMED Code Problem Mental retardation F79 Active 17718742 Problem Major depression, recurrent F33.9 Active 61043277 Problem Obsessive compulsive disorder F42 Active 186206581 Problem Essential tremor G25.0 Active 698958452 Problem Dysfunction of Eustachian tube 381.81 Active 13259193 Problem Coarse tremors G25.2 Active 90288192 Problem Acute suppurative otitis media without spontaneous rupture of eardrum 382.00 Active 50208827 Problem Unspecified otalgia 388.70 Active 39559176 Problem Morbid (severe) obesity due to excess calories E66.01 Active 60827868765524 Problem Major depressive disorder, recurrent episode, in partial remission F33.41 Active 88886781 Problem Hyperlipidemia, unspecified hyperlipidemia type E78.5 Active 02947166 Problem Body mass index (BMI) of 40.0-44.9 in adult Z68.41 Active 072084363 Problem Depressive disorder, not elsewhere classified 311 Active 89115319 Problem Obsessive-compulsive disorders 300.3 Active 302809779 Problem Moderate mental retardation 318.0 Active 57800659 Problem Mild mental retardation 317 Active 27231813 Problem Unspecified psychosis 298.9 Active 80463205 Problem Unspecified episodic mood disorder 296.90 Active 419345728 Problem Encounter for long-term (current) use of other medications V58.69 Active 505244658 Problem Generalized anxiety disorder 300.02 Active 61048746 Problem Major depressive disorder, recurrent episode, moderate 296.32 Active 49593680 Problem Wheezing 786.07 Active 23235570 Problem Anxiety state, unspecified 300.00 Active 091751383 Problem Major depressive disorder, recurrent episode, mild 296.31 Active 30392205 ALLERGIES No Information ENCOUNTERS Encounter Location Date Diagnosis [place] [id number] [place] [address] 27194- 4522 Feb, [facility] [id number] [place] [address] 24336 -4257 02 Feb, 2018 Coarse tremors G25.2 and BMI 45.0-49.9, adult Z68.42 [place] [address] 8[address]89- 2937 Jan, [place] [address] [address] [id number] [place] [address] 64171- 7579 Jan, Major depressive disorder, recurrent episode, in partial remission F33.41 [place] [address] 37321- 1606 19 Dec, 2017 Body mass index (BMI) of 40.0-44.9 in adult Z68.41 ; Hyperglycemia R73.9 and Hyperlipidemia, unspecified hyperlipidemia type E78.5 [place] [id number] [place] [address] 63347- 2724 November, Major depressive disorder, recurrent episode, in partial remission F33.41 ; Mental retardation F79 ; Obsessive compulsive disorder F42 and BMI 50.0-59.9, adult Z68.43 [place] [id number] [place] [address] 84783- 9252 Oct, [facility] [id number] [place] [address] 12816 -7895 Jul, Acute nasopharyngitis J00 and Vomiting, intractability of vomiting not specified, presence of nausea not specified, unspecified vomiting type R11.10 [place] [id number] [place] [address] 96836- 2022 09 Jul, 2017 BMI 45.0-49.9, adult Z68.42 ; Major depressive disorder, recurrent episode, in partial remission F33.41 ; Mental retardation F79 and Obsessive compulsive disorder F42 [place] [id number] [place] [address] 18160- 2556 Jul, High risk medication use Z79.899 [facility] [id number] [place] [address] 26152- 8045 Jun, Morbid (severe) obesity due to excess calories E66.01 ; Body mass index (BMI) of 40.0-44.9 in adult Z68.41 ; Mental retardation F79 ; Elevated blood pressure reading R03.0 ; Screening for diabetes mellitus (DM) Z13.1 and Screening for lipid disorders Z13.220 [place] [id number] [place] [address] 45604- 2404 13 May, 2017 High risk medication use Z79.899 ; Major depressive disorder , recurrent episode, in partial remission F33.41 ; Mental retardation F79 and Obsessive compulsive disorder F42 [place] [id number] [place] [address] 70084- 4579 May, [place] [address] [address] [id number] [place] [address] 47117- 7486 Apr, [address] [id number] [id number] Mar, [facility] [id number] [place] [address] 47539- 6697 Jan, Major depression, recurrent F33.9 ; Mental retardation F79 and Obsessive compulsive disorder F42 [place] [id number] [place] [address] 81173- 3748 November, Major depression, recurrent F33.9 and Obsessive compulsive disorder F42 [facility] [address] [address]- 5278 Sep, [facility] [id number] [place] [address] 55558- 0164 Jun, Obsessive compulsive disorder F42 ; Mental retardation F79 and Major depressive disorder, recurrent episode, in partial remission F33.41 [facility] [id number] [place] [address] 99024- 0812 Apr, [facility] [address] [address]- 8079 Apr, Major depression, recurrent F33.9 ; Obsessive compulsive disorder F42 and Mental retardation F79 [facility] [id number] [place] [address] 3328 Jan, [facility] [address] [address]- 2368 Jan, Major depression, recurrent F33.9 ; Obsessive compulsive disorder F42 and Mental retardation F79 [facility] [address] [place] [address] 1952 Dec, [facility] [id number] [place] [address] 63218- 4986 November, [facility] [address] [address]- 2540 November, [facility] [address] [address]- 9551 Oct, [facility] [address] [address]- 2615 Oct, Obsessive compulsive disorder F42 ; Major depression, recurrent F33.9 and Mental retardation F79 [facility] [address] [address]- 1170 Sep, [facility] [address] [address]- 3582 17 Aug, 2015 [facility] [address] [address]- 0839 Aug, [facility] [address] [address]- 2860 Aug, [facility] [address] [address]- 0456 Jul, [facility] [address] [address]- 8160 Jul, [facility] [address] [address]- 6999 Jul, [facility] [id number] [place] [address] 20578- 3901 Jun, Obsessive compulsive disorder F42 ; Major depression, recurrent F33.9 and Mental retardation F79 [facility] [id number] [place] [address] 765391- 8283 Jun, [facility] [id number] [place] [address] 88795- 3967 Jun, [facility] [id number] [place] [address] 529922- 5843 May, [facility] [id number] [place] [address] 87680- 5587 Apr, [facility] [id number] [place] [address] 24263- 0143 30 Mar, 2015 Generalized anxiety disorder 300.02 and Major depressive disorder, recurrent episode, mild 296.31 [facility] [id number] [place] [address] 30921- 8620 14 Mar, 2015 [facility] [address] [address]- 6050 Feb, [facility] [id number] [place] [address] 75111- 2360 Jan, [facility] [id number] [place] [address] 58471- 6390 Dec, Generalized anxiety disorder 300.02 and Depressive disorder , not elsewhere classified 311 [facility] [id number] [place] [address] 250685- 6718 14 Oct, 2014 [facility] [address] [address] 2179 Oct, [facility] [id number] [place] [address] 49939694- 2630 Sep, [facility] [place] [facility] [address] [id number] [place] [address]- 4703 Sep, [facility] [place] [facility] [address] [id number] [place] [address]- 0891 Jun, [facility] [place] [facility] [address] [id number] [place] [address]- 9641 Jun, [facility] [place] [facility] [address] [id number] [place] [address]- 1734 May, [facility] [place] [facility] [address] [id number] [place] [address]- 7004 May, [facility] [place] [facility] [address] [id number] [place] [address]- 9384 May, [facility] [place] [facility] [address] [id number] [place] [address]- 6758 Apr, [facility] [place] [facility] [address] [id number] [place] [address]- 9528 Apr, [facility] [place] [facility] [address] [id number] [place] [address]- 5588 Feb, [facility] [place] [facility] [address] [id number] [place] [address]- 4579 Jan, [facility] [place] [facility] [address] [id number] [place] [address]- 0335 Jan, [facility] [place] [facility] [address] [id number] [address]- 0008 Dec, [facility] [place] [facility] [address] [id number] [place] [address]- 9465 Dec, [facility] [place] [facility] [address] [id number] [place] [address]- 7771 Oct, [facility] [place] [facility] [address] [id number] [place] [address]- 9160 Oct, [facility] [place] [facility] [address] [id number] [place] [address]- 3119 14 Oct, 2013 [facility] [place] [facility] [address] [id number] [place] [address]- 9738 14 Oct, 2013 [facility] [place] [facility] [address] [id number] [place] [address]- 7289 Sep, [facility] [place] [facility] [address] [id number] [place] [address]- 4521 Sep, [facility] [place] [facility] [address] [id number] [place] [address]- 7565 Sep, [facility] [place] [facility] [address] [id number] [place] [address]- 5630 Sep, [facility] [place] [facility] [address] [id number] [place] [address]- 4800 Aug, [facility] [place] [facility] [address] [id number] [place] [address]- 1095 Aug, [facility] [place] [facility] [address] [id number] [place] [address]- 1045 Aug, [facility] [place] [facility] [address] [id number] [place] [address]- 8162 Aug, [facility] [place] [facility] [address] [id number] [place] [address]- 8381 Jul, [facility] [place] [facility] [address] [id number] [place] [address]- 4072 Jul, [facility] [place] [facility] [address] [id number] [place] [address]- 2265 Jul, [facility] [place] [facility] [address] [id number] [place] [address]- 4070 Jul, [facility] [place] [facility] [address] [id number] [place] [address]- 8064 Jul, [facility] [place] [facility] [address] [id number] [place] [address]- 0791 Jul, [facility] [place] [facility] [address] [id number] [place] [address]- 2229 Apr, [facility] [place] [facility] [address] [id number] [place] [address]- 3094 Apr, [facility] [place] [facility] [address] [id number] [place] [address]- 8765 Apr, [facility] [place] [facility] [address] [id number] [place] [address]- 9311 Apr, [facility] [place] [facility] [address] [id number] [place] [address]- 5444 Apr, [facility] [place] [facility] [address] [id number] [place] [address]- 7388 Apr, [facility] [place] [facility] [address] [id number] [place] [address]- 8700 Apr, [facility] [place] [facility] [address] [id number] [place] [address]- 1087 Apr, [facility] [place] [facility] [address] [id number] [place] [address]- 1164 Apr, [facility] [place] [facility] [address] [id number] [place] [address]- 7919 Apr, [facility] [place] [facility] [address] [id number] [place] [address]- 3997 16 Apr, 2013 [facility] [place] [facility] [address] [id number] [place] [address]- 0611 16 Apr, 2013 [facility] [place] [facility] [address] [id number] [place] [address]- 7733 Apr, [facility] [place] [facility] [address] [id number] [place] [address]- 8274 16 Apr, 2013 [facility] [place] [facility] [address] [id number] 5139 18 Mar, 2013 [facility] [place] [facility] [address] [id number] [place] [address]- 1237 17 Mar, 2013 [facility] [address] [id number] [place] [address]- 9748 16 Mar, 2013 [facility] [place] [facility] [address] [id number] [place] [address]- 8090 13 Mar, 2013 [facility] [place] [facility] [address] [id number] [place] [address]- 9811 Feb, [facility] [place] [facility] [address] [id number] [place] [address]- 6798 Feb, [facility] [place] [facility] [address] [id number] [place] [address]- 7178 Jan, [facility] [place] [facility] [address] [id number] [place] [address]- 0164 Jan, [facility] [place] [facility] [address] [id number] [place] [address]- 0547 Jan, [facility] [place] [facility] [address] [id number] [place] [address]- 9451 Jan, [facility] [place] [facility] [address] [id number] [place] [address]- 6557 Jan, [facility] [place] [facility] [address] [id number] [place] [address]- 9418 Jan, [facility] [place] [facility] [address] [id number] [place] [address]- 0755 Jan, [facility] [place] [facility] [address] [id number] [place] [address]- 8014 Jan, [facility] [place] [facility] [address] [id number] [place] [address]- 7571 Dec, [facility] [place] [facility] [address] [id number] [place] [address]- 0476 Dec, [facility] [place] [facility] [address] [id number] [place] [address]- 6116 Dec, [facility] [place] [facility] [address] [id number] [place] [address]- 9906 Dec, [facility] [address] [id number] [place] [address]- 1839 Dec, [facility] [place] [facility] [address] [id number] [place] [address]- 8494 Dec, [facility] [place] [facility] [address] [id number] [place] [address]- 3383 Dec, [facility] [place] [facility] [address] [id number] [place] [address]- 8599 Dec, [facility] [place] [facility] [address] [id number] [place] [address]- 9630 Dec, [facility] [place] [facility] [address] [id number] [place] [address]- 6175 November, [facility] [place] [facility] [address] [id number] [place] [address]- 2830 Oct[facility] [place] [facility] [address] [id number] [place] [address]- 9141 30 Oct, 2012 [facility] [place] [facility] [address] [id number] [place] [address]- 4648 Oct, [facility] [place] [facility] [address] [id number] [place] [address]- 4690 Oct, [facility] [place] [facility] [address] [id number] [place] [address]- 2695 Oct, [facility] [place] [facility] [address] [id number] [place] [address]- 8852 10 Oct, 2012 [facility] [place] [facility] [address] [id number] [place] [address]- 3600 08 Aug, 2012 [facility] [place] [facility] [address] [id number] [place] [address]- 7108 04 Aug, 2012 [facility] [place] [facility] [address] [id number] [place] [address]- 1788 Jul, [facility] [address] [id number] [place] [address]- 0046 Jul, [facility] [place] [facility] [address] [id number] [place] [address]- 0639 Jul, [facility] [place] [facility] [address] [id number] [place] [address]- 4400 Jul, [facility] [place] [facility] [address] [id number] [place] [address]- 1717 Jul, [facility] [address] [id number] [place] [address]- 1474 Jul, [facility] [place] [facility] [address] [id number] [place] [address]- 4797 Jul, [facility] [place] [facility] [address] [id number] [place] [address]- 7379 Jun, [facility] [place] [facility] [address] [id number] [place] [address]- 6689 Jun, [facility] [place] [facility] [address] [id number] [place] [address]- 9473 Jun, [facility] [place] [facility] [address] [id number] [place] [address]- 4646 Jun, [facility] [place] [facility] [address] [id number] [place] [address]- 4551 Jun, [facility] [place] [facility] [address] [id number] [place] [address]- 5305 Apr, [facility] [place] [facility] [address] [id number] [place] [address]- 8056 Apr, [facility] [place] [facility] [address] [facility] [id number] [place] [address]- 3960 Apr, [facility] [place] [facility] [address] [id number] [place] [address]32 Mar, [facility] [place] [facility] [address] [id number] [place] [address]- 6651 Feb, [facility] [address] [id number] [place] [address]- 5518 Jan, [facility] [place] [facility] [address] [id number] [place] [address]- 5938 Jan, [facility] [address] [id number] [place] [address]- 7748 Dec, [facility] [address] [id number] [place] [address]- 7669 November, [facility] [address] [id number] [place] [address]- 3589 Oct, [facility] [address] [id number] [place] [address]- 6296 Sep, [facility] [address] [id number] [place] [address]- 4334 Sep, [facility] [address] [id number] [place] [address]- 7456 Aug, [facility] [address] [id number] [place] [address]- 4492 Aug, [facility] [address] [id number] [place] [address]- 2106 Aug, [facility] [address] [id number] [place] [address]- 9226 Jul, [facility] [address] [id number] [place] [address]- 0286 Jul, [facility] [place] [facility] [address] [id number] [place] [address]- 6676 Jun, [facility] [place] [facility] [address] [id number] [place] [address]- 2546 Jun, [facility] [address] [id number] [place] [address]- 1338 May, [facility] [address] [facility] [id number] [place] [address]- 1938 Apr, [facility] [address] [facility] [id number] [place] [address]- 4759 Apr, IMMUNIZATIONS No Known Immunizations SOCIAL HISTORY Never Assessed REASON FOR VISIT f/dulce maria Borrero RN PLAN OF CARE Activity Details Follow Up 4 Months, prn Reason: VITAL SIGNS Height 65 in 2017-11-24 Weight 303 lbs 2017-11-24 Heart Rate 78 bpm 2017-11-24 BMI 50.42 kg/m2 2017-11-24 Blood pressure systolic 128 mmHg 2017-11-24 Blood pressure diastolic 84 mmHg 2017-11-24 MEDICATIONS Medication Instructions Dosage Frequency Start Date End Date Duration Status Singulair 10 mg Orally Once a day 1 tablet in the evening 24h Active Latuda 60 MG Orally Once a day 1 tablet with food 24h 30 days Active propranolol 20 mg 1 Tablet by Oral route 2 times per day Dec, Active Zofran ODT 4 MG Orally every 8 hrs 1 tablet on the tongue and allow to dissolve 8h Jul, 10 days Not-Taking Omeprazole 20 mg Orally Once a day 1 capsule 24h 16 Apr, 2017 30 day(s ) Active Wellbutrin XL 150 MG Orally Once a day 1 tablet in the morning 24h November, 30 days Active Clonazepam 0.5 MG Orally as needed Once a day 1 tablet 24h Sep, 30 days Active RESULTS No Results PROCEDURES Procedure Date Ordered Result Body Site [facility] VISIT ESTABLISHED PATIENT November 24, 2017 INSTRUCTIONS MEDICATIONS ADMINISTERED No Known Medications MEDICAL (GENERAL) HISTORY Type Description Date Medical History GERD Surgical History cholecystectomy 2013 Hospitalization History [facility]- Chest Pain 08/26/2017
--- OUTSIDE RECORDS SUMMARY | 2018-03-27 14:03 | XMS REPORT ---
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 Role Phone ANTWAN MARIE Unavailable PROBLEMS Type Condition ICD9-CM Code RND62-SL Code Onset Dates Condition Status SNOMED Code Problem Obsessive compulsive disorder F42 Active 418100803 Problem Major depressive disorder, recurrent episode, in partial remission F33.41 Active 42765368 Problem Major depression, recurrent F33.9 Active 64571178 Problem Essential tremor G25.0 Active 137558248 Problem Dysfunction of Eustachian tube 381.81 Active 36484710 Problem Coarse tremors G25.2 Active 52392906 Problem Acute suppurative otitis media without spontaneous rupture of eardrum 382.00 Active 48697578 Problem Unspecified otalgia 388.70 Active 04531724 Problem Body mass index (BMI) of 40.0-44.9 in adult Z68.41 Active 334858073 Problem Morbid (severe) obesity due to excess calories E66.01 Active 02244233645777 Problem MR (mental retardation) F79 Active 772579956 Problem Hyperlipidemia, unspecified hyperlipidemia type E78.5 Active 50806634 Problem Depressive disorder, not elsewhere classified 311 Active 30520052 Problem Obsessive-compulsive disorders 300.3 Active 389779940 Problem Moderate mental retardation 318.0 Active 04365431 Problem Mild mental retardation 317 Active 18994339 Problem Unspecified psychosis 298.9 Active 58738214 Problem Unspecified episodic mood disorder 296.90 Active 332029287 Problem Encounter for long-term (current) use of other medications V58.69 Active 920099174 Problem Generalized anxiety disorder 300.02 Active 53561595 Problem Major depressive disorder, recurrent episode, moderate 296.32 Active 03439561 Problem Wheezing 786.07 Active 73377414 Problem Anxiety state, unspecified 300.00 Active 370732513 Problem Major depressive disorder, recurrent episode, mild 296.31 Active 02542326 ALLERGIES No Information ENCOUNTERS Encounter Location Date Diagnosis [facility] [address] [address] Apr, [facility] [id number] [place] [address] 95639- 7844 Mar, [facility] [id number] [place] [address] 26590- 5990 Feb, [facility] [id number] [place] [address] 47915- 8591 Feb, Dysuria R30.0 [facility] [id number] [place] [address] 99379- 4621 Feb, Dysuria R30.0 ; Acute cystitis without hematuria N30.00 and Tachycardia R00.0 [facility] [id number] [place] [address] 20684 -1203 Feb, Coarse tremors G25.2 and BMI 45.0-49.9, adult Z68.42 [place] [id number] [place] [address] 46942- 1727 Jan, [place] [id number] [place] [address] 11736- 0153 Jan, Major depressive disorder, recurrent episode, in partial remission F33.41 [place] [id number] [place] [address] 83914- 8030 Dec, Hyperglycemia R73.9 ; Hyperlipidemia, unspecified hyperlipidemia type E78.5 ; Body mass index (BMI) of 40.0-44.9 in adult Z68.41 and MR (mental retardation) F79 [facility] [id number] [place] [address] 31711- 3453 November, Major depressive disorder, recurrent episode, in partial remission F33.41 ; Mental retardation F79 ; Obsessive compulsive disorder F42 and BMI 50.0-59.9, adult Z68.43 [place] [id number] [place] [address] 80611- 8163 Oct, [facility] [id number], [place] [address] Jul, Acute nasopharyngitis J00 and Vomiting, intractability of vomiting not specified, presence of nausea not specified, unspecified vomiting type R11.10 [facility] [address], [place] [address] Jul, BMI 45.0-49.9, adult Z68.42 ; Major depressive disorder, recurrent episode, in partial remission F33.41 ; Mental retardation F79 and Obsessive compulsive disorder F42 [place] [id number] [place] [address] 87915- 2569 Jul, High risk medication use Z79.899 [facility] [address] [place] [address] 90378- 7854 Jun, Morbid (severe) obesity due to excess calories E66.01 ; Body mass index (BMI) of 40.0-44.9 in adult Z68.41 ; Mental retardation F79 ; Elevated blood pressure reading R03.0 ; Screening for diabetes mellitus (DM) Z13.1 and Screening for lipid disorders Z13.220 [place] [id number] [place] [address] 72351- 3711 May, High risk medication use Z79.899 ; Major depressive disorder , recurrent episode, in partial remission F33.41 ; Mental retardation F79 and Obsessive compulsive disorder F42 [facility] [address], [place] [address] 7[address] May, [facility] [id number] [address] 9137 Apr, [facility] [address] [facility] [address] [id number] [id number] Mar, [facility] [address] [facility] [id number] [address] Jan, Major depression, recurrent F33.9 ; Mental retardation F79 and Obsessive compulsive disorder F42 [facility] [address], [place] [address] 4495 November, Major depression, recurrent F33.9 and Obsessive compulsive disorder F42 [facility] [address], [place] [address]- 6067 Sep, [facility] [id number] [address] 0911 Jun, Obsessive compulsive disorder F42 ; Mental retardation F79 and Major depressive disorder, recurrent episode, in partial remission F33.41 [facility] [address], [place] [address] 5618 Apr, [facility] [id number] [place] [address] 13360- 6061 Apr, Major depression, recurrent F33.9 ; Obsessive compulsive disorder F42 and Mental retardation F79 [facility] [id number] [place] [address] 02017- 3796 Jan, [facility] [address], [place] [address] 7832 Jan, Major depression, recurrent F33.9 ; Obsessive compulsive disorder F42 and Mental retardation F79 [facility] [address] [address] 0740 Dec, [facility] [address] [address] 6133 November, [facility] [address] [place] [address]- 3996 November, [facility] [address], [place] [address] Oct, [facility] [address] [address]- 2512 Oct, Obsessive compulsive disorder F42 ; Major depression, recurrent F33.9 and Mental retardation F79 [facility] [id number] [place] [address] 24091- 2546 16 Sep, 2015 [facility] [address] [address]32 17 Aug, 2015 [facility] [address] [address]- 0346 15 Aug, 2015 [facility] [address], [place] [address]- 7834 Aug, [facility] [id number] [place] [address] 03280- 7852 Jul, [facility] [id number] [place] [address] 93009- 1529 Jul, [facility] [id number] [place] [address] 11861- 0567 Jul, [facility] [id number] [place] [address] 96728- 2122 Jun, Obsessive compulsive disorder F42 ; Major depression, recurrent F33.9 and Mental retardation F79 [facility] [address], [place] [address]- 1158 Jun, [facility] [id number] [place] [address] 22292- 8771 Jun, [facility] [address], [place] [address]- 4844 May, [facility] [id number] [place] [address] 80752- 0460 15 Apr, 2015 [facility] [address] [address] 30 Mar, 2015 Generalized anxiety disorder 300.02 and Major depressive disorder, recurrent episode, mild 296.31 [facility] [address] [address] 14 Mar, 2015 [facility] [address] [address]- 1020 Feb, [facility] [address] [id number] [place] [address]- 7038 Jan, [facility] [address] [facility] [id number] [place] [address]- 0402 Dec, Generalized anxiety disorder 300.02 and Depressive disorder , not elsewhere classified 311 [facility] [address] [facility] [id number] [place] [address]- 3476 14 Oct, 2014 [facility] [address] [facility] [id number] [place] [address]- 8729 Oct, [facility] [address] [facility] [id number] [place] [address]- 3985 Sep, [facility] [address] [facility] [id number] [place] [address]- 9910 Sep, [facility] [id number] [place] [address], [place] [address]- 4583 Jun, [facility] [id number] [place] [address]- 2430 Jun, [facility] [id number] [place] [address]- 2987 May, [facility] [id number] [place] [address]- 9095 May, [facility] [id number], [place] [address]- 7561 May, [facility] [address] [facility] [id number], [place] [address]- 4317 Apr, [facility] [address] [facility] [id number] [place] [address]- 4947 Apr, [facility] [address] [facility] [id number] 0231 Feb, [facility] [id number] [place] [address]- 1632 Jan, [facility] [place] [facility] [address] [id number] [place] [address]- 8791 Jan, [facility] [place] [facility] [address] [id number] [place] [address]- 5706 Dec, [facility] [place] [facility] [address] [id number] [place] [address]- 9931 Dec, [facility] [place] [facility] [address] [id number] [place] [address]- 6208 Oct, [facility] [place] [facility] [address] [id number] [place] [address]- 1306 Oct, [facility] [place] [facility] [address] [id number] [place] [address]- 6531 Oct, [facility] [place] [facility] [address] [id number] [place] [address]- 7616 Oct, [facility] [place] [facility] [address] [id number] [place] [address]- 4417 Sep, [facility] [place] [facility] [address] [id number] [place] [address]- 1255 Sep, [facility] [place] [facility] [address] [id number] [place] [address]- 4835 Sep, [facility] [place] [facility] [address] [id number] [place] [address]- 6784 Sep, [facility] [place] [facility] [address] [id number] [place] [address]- 4794 Aug, [facility] [place] [facility] [address] [id number] [place] [address]- 6288 Aug, [facility] [place] [facility] [address] [id number] [place] [address]- 3790 Aug, [facility] [place] [facility] [address] [id number] [place] [address]- 8809 Aug, [facility] [place] [facility] [address] [id number] [place] [address]- 1279 Jul, [facility] [place] [facility] [address] [id number] [place] [address]- 9021 Jul, [facility] [place] [facility] [address] [id number] [place] [address]- 9587 Jul, [facility] [place] [facility] [address] [id number] [place] [address]- 2415 Jul, [facility] [place] [facility] [address] [id number] [place] [address]- 5143 Jul, [facility] [place] [facility] [address] [id number] [place] [address]- 5322 Jul, [facility] [place] [facility] [address] [id number] [place] [address]- 0757 Apr, [facility] [place] [facility] [address] [id number] [place] [address]- 1568 Apr, [facility] [place] [facility] [address] [id number], [place] [address]- 9678 Apr, [facility] [place] [facility] [address] [id number] [place] [address]- 2512 Apr, [facility] [place] [facility] [address] [id number] [place] [address]- 3240 Apr, [facility] [place] [facility] [address] [id number], [place] [address]- 1908 Apr, [facility] [place] [facility] [address] [id number], [place] [address]- 5172 18 Apr, 2013 [facility] [place] [facility] [address] [id number] [place] [address]- 3594 18 Apr, 2013 [facility] [place] [facility] [address] [id number], [place] [address]- 4253 Apr, [facility] [place] [facility] [address] [id number] [place] [address]- 1607 Apr, [facility] [place] [facility] [address] [id number] [place] [address]- 6593 16 Apr, 2012 [facility] [address] [id number] [place] [address]- 7165 16 Apr, 2012 [facility] [address] [id number] [place] 3775 16 Apr, 2012 [facility] [address] [id number] [place] [address]- 9214 16 Apr, 2012 [facility] [address] [id number] [place] [address]- 2112 18 Mar, 2013 [facility] [address] [id number] [place] [address]- 7490 17 Mar, 2013 [facility] [address] [id number] [place] [address]- 9158 16 Mar, 2013 [facility] [address] [id number] [place] [address]- 7544 13 Mar, 2013 [facility] [address] [id number] [place] [address]- 0563 Feb, [facility] [address] [id number] [place] [address]- 8795 Feb, [facility] [address] [id number] [place] [address]- 6316 Jan, [facility] [address] [id number] [place] [address]- 2756 Jan, [facility] [address] [id number] [place] [address]- 0992 Jan, [facility] [place] [facility] [address] [id number] [place] [address]- 6983 Jan, [facility] [place] [facility] [address] [id number] [place] [address]- 8011 Jan, [facility] [address] [id number] [place] [address]- 6778 17 Jan, 2013 [facility] [place] [facility] [address] [id number] [place] [address]- 3912 05 Jan, 2013 [facility] [place] [facility] [address] [id number] [place] [address]- 8306 Jan, [facility] [place] [facility] [address] [id number] [place] [address]- 5579 Dec, [facility] [place] [facility] [address] [id number] [place] [address]- 5106 Dec, [facility] [place] [facility] [address] [id number] [place] [address]- 9246 Dec, [facility] [place] [facility] [address] [id number] [place] [address]- 7653 Dec, [facility] [place] [facility] [address] [id number] [place] [address]- 4206 Dec, [facility] [place] [facility] [address] [id number] [place] [address]- 2962 Dec, [facility] [place] [facility] [address] [id number] [place] [address]- 3134 Dec, [facility] [place] [facility] [address] [id number] [place] [address]- 1572 Dec, [facility] [place] [facility] [address] [id number] [place] [address]- 9134 Dec, [facility] [place] [facility] [address] [id number] [place] [address]- 4504 November, [facility] [place] [facility] [address] [id number] [place] [address]- 2477 Oct, [facility] [place] [facility] [address] [id number] [place] [address]- 7424 Oct, [facility] [place] [facility] [address] [id number] [place] [address]- 5676 Oct, [facility] [place] [facility] [address] [id number], [place] [address]- 0338 Oct, [facility] [address] [id number] [place] [address]- 0452 Oct, [facility] [address] [id number] [place] [address]- 8219 Oct, [facility] [address] [id number] [place] [address]- 5717 Aug, [facility] [address] [id number] [place] [address]- 3282 Aug, [facility] [address] [id number] [place] [address]- 5803 Jul, [facility] [address] [id number] [place] [address]- 5484 Jul, [facility] [address] [id number] [place] [address]- 2587 Jul, [facility] [address] [id number] [place] [address]- 4332 Jul, [facility] [address] [facility] [id number] [place] [address]- 1521 Jul, [facility] [address] [facility] [id number] [place] [address]- 9553 Jul, [facility] [address] [id number] [place] [address]- 4850 Jul, [facility] [address] [id number] [place] [address]- 0553 Jun, [facility] [address] [id number] [place] [address]- 8642 Jun, [facility] [address] [id number] [place] [address]- 1672 Jun, [facility] [address] [id number] [place] [address]- 2708 Jun, [facility] [place] [facility] [address] [id number] [place] [address]- 6768 Jun, [facility] [place] [facility] [address] [id number] [place] [address]- 8782 Apr, [facility] [place] [facility] [address] [id number] [place] [address]- 4820 Apr, [facility] [place] [facility] [address] [id number] [place] [address]- 3213 Apr, [facility] [place] [facility] [address] [id number] [place] [address]- 0338 Mar, [facility] [place] [facility] [address] [id number] [place] [address]- 8391 Feb, [facility] [place] [facility] [address] [id number] [place] [address]- 8852 Jan, [facility] [place] [facility] [address] [id number] [place] [address]- 0049 Jan, [facility] [place] [facility] [address] [id number] [place] [address]- 0102 Dec, [facility] [place] [facility] [address] [id number] [place] [address]- 1102 November, [facility] [place] [facility] [address] [id number] [place] [address]- 1086 Oct, [facility] [place] [facility] [address] [id number] [place] [address]- 0753 Sep, [facility] [place] [facility] [address] [id number] [place] [address]- 0277 Sep, [facility] [place] [facility] [address] [id number] [place] 6314 Aug, [facility] [place] [facility] [address] [id number] [place] [address]- 9132 Aug, [facility] [place] [facility] [address] [id number] [place] [address]- 2874 Aug, [facility] [address] [id number] [address]- 2546 Jul, [facility] [address] [address]- 2546 Jul, [facility] [address], [place] [address]- 2546 Jun, [facility] [address] [address]- 2546 Jun, [facility] [address] [address]- 2546 May, [facility] [address] [address]- 2546 Apr, [facility] [address] [id number], [place] [address]- 2546 Apr, IMMUNIZATIONS No Known Immunizations SOCIAL HISTORY Never Assessed REASON FOR VISIT carlos refill PLAN OF CARE VITAL SIGNS MEDICATIONS Medication Instructions Dosage Frequency Start Date End Date Duration Status Clonazepam 0.5 MG Orally as needed Once a day 1 tablet 24h Sep, 30 days Active RESULTS No Results PROCEDURES No Known procedures INSTRUCTIONS MEDICATIONS ADMINISTERED No Known Medications MEDICAL (GENERAL) HISTORY Type Description Date Medical History GERD Surgical History cholecystectomy 2013 Hospitalization History ED [facility]- Chest Pain 08/26/2017 Hospitalization History Hospital, UTI/Septic 02/20/18
--- OUTSIDE RECORDS SUMMARY | 2018-03-27 14:10 | XMS REPORT | Continuity of Care Document ---
Author Author [facility] of [facility] Address Unknown Phone Unavailable Allergies Active [...] DO, MARNIE K 536.8 DYSPEPSIA 04/08/2010 O[facility] LINEN FOLDER, STEPHENIE CARRILLO 477.0 ALLERGIC RHINITIS - POLLEN 04/08/2010 OATES LINEN FOLDER, STEPHENIE GERARDO 536.8 DYSPEPSIA 04/08/2010 OATES LINEN FOLDER, STEPHENIE GERARDO 477.0 ALLERGIC RHINITIS - POLLEN 04/08/2010 O[facility] LINEN FOLDER, STEPHENIE GERARDO 536.8 DYSPEPSIA 04/08/2010 OATES LINEN FOLDER, STEPHENIE GERARDO 477.0 ALLERGIC RHINITIS - POLLEN 04/08/2010 OATES LINEN FOLDER, STEPHENIE GERARDO 536.8 DYSPEPSIA 04/08/2010 MIKAELA CANINE SERVICE TEACHER, IRENE M 477.0 ALLERGIC RHINITIS - POLLEN 04/08/2010 MIKAELA CANINE SERVICE TEACHER, IRENE M 536.8 DYSPEPSIA 04/08/2010 MIKAELA CANINE SERVICE TEACHER, IRENE M 477.0 ALLERGIC RHINITIS - POLLEN 04/08/2010 MIKAELA CANINE SERVICE TEACHER, IRENE M 536.8 DYSPEPSIA 04/08/2010 MIKAELA CANINE SERVICE TEACHER, IRENE M 477.0 ALLERGIC RHINITIS - POLLEN 04/08/2010 MIKAELA CANINE SERVICE TEACHER, IRENE M 536.8 DYSPEPSIA 05/05/2010 [facility] APRN, STEPHENIE CARRILLO 465.9 UPPER RESPIRATORY INFECTION 05/05/2010 465.9 UPPER RESPIRATORY INFECTION 05/05/2010 ANDREW PATTERSON, TASHI M 465.9 UPPER RESPIRATORY INFECTION 05/05/2010 OATES LINEN FOLDER, STEPHENIE CARRILLO 465.9 UPPER RESPIRATORY INFECTION 05/05/2010 465.9 UPPER RESPIRATORY INFECTION 05/05/2010 465.9 UPPER RESPIRATORY INFECTION 05/05/2010 465.9 UPPER RESPIRATORY INFECTION 05/05/2010 465.9 UPPER RESPIRATORY INFECTION 05/05/2010 ROSALINDA SINGLETARY DO 465.9 UPPER RESPIRATORY INFECTION 05/05/2010 LUKASZ CHOE, JAY Champagne 465.9 UPPER RESPIRATORY INFECTION 05/05/2010 MARNIE PORTER DO 465.9 UPPER RESPIRATORY INFECTION 05/05/2010 OATES LINEN FOLDER, STEPHENIE GERARDO 465.9 UPPER RESPIRATORY INFECTION 05/05/2010 STEPHENIE OATES APRN 465.9 UPPER RESPIRATORY INFECTION 05/05/2010 STEPHENIE OATES APRN 465.9 UPPER RESPIRATORY INFECTION 05/05/2010 MIKAELA CANINE SERVICE TEACHER, IRENE M 465.9 UPPER RESPIRATORY INFECTION 05/05/2010 MIKAELA CANINE SERVICE TEACHER, IRENE M 465.9 UPPER RESPIRATORY INFECTION 05/05/2010 MIKAELA CANINE SERVICE TEACHER, IRENE M 465.9 UPPER RESPIRATORY INFECTION 05/20/2010 [...] AT A HEALTH CARE FACILITY 05/20/2010 MIKAELA CANINE SERVICE TEACHER, IRENE M V70.0 ROUTINE GENERAL MEDICAL EXAMINATION AT A HEALTH CARE FACILITY 05/20/2010 MIKAELA CANINE SERVICE TEACHER, IRENE M V70.0 ROUTINE GENERAL MEDICAL EXAMINATION AT A HEALTH CARE FACILITY 05/20/2010 MIKAELA CANINE SERVICE TEACHER, IRENE M V70.0 ROUTINE GENERAL MEDICAL EXAMINATION [...] STEPHENIE CARRILLO 466.0 ACUTE BRONCHITIS 09/11/2010 OATES LINEN FOLDER, STEPHENIE CARRILLO 466.0 ACUTE BRONCHITIS 09/11/2010 OATESMIGEL [...] STEPHENIE CARRILLO 703.0 INGROWING NAIL 03/19/2011 MIKAELA CANINE SERVICE TEACHER, IRENE M 703.0 INGROWING NAIL 03/19/2011 MIKAELA CANINE SERVICE TEACHER, IRENE M 703.0 INGROWING NAIL 03/19/2011 MIKAELA CANINE SERVICE TEACHER, IRENE M 703.0 INGROWING NAIL 06/18/2011 OATES [...] APRN V72.84 PRE-OPERATIVE EXAMINATION UNSPECIFIED 06/18/2011 MIKAELA CANINE SERVICE TEACHER, IRENE M 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 06/18/2011 MIKAELA CANINE SERVICE TEACHER, IRENE M 521.00 UNSPECIFIED DENTAL CARIES 06/18/2011 MIKAELA CANINE SERVICE TEACHER, IRENE M V04.81 FLU DX (MEDICARE ONLY) 06/18/2011 MIKAELA CANINE SERVICE TEACHER, IRENE M V72.84 PRE-OPERATIVE EXAMINATION UNSPECIFIED 06/18/2011 MIKAELA CANINE SERVICE TEACHER, IRENE M 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 06/18/2011 MIKAELA CANINE SERVICE TEACHER, IRENE M 521.00 UNSPECIFIED DENTAL CARIES 06/18/2011 MIKAELA CANINE SERVICE TEACHER, IRENE M V04.81 FLU DX (MEDICARE ONLY) 06/18/2011 MIKAELA CANINE SERVICE TEACHER, IRENE M V72.84 PRE-OPERATIVE EXAMINATION UNSPECIFIED 06/18/2011 MIKAELA CANINE SERVICE TEACHER, IRENE M 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 06/18/2011 MIKAELA CANINE SERVICE TEACHER, IRENE M 521.00 UNSPECIFIED DENTAL CARIES 06/18/2011 MIKAELA CANINE SERVICE TEACHER, IRENE M V04.81 FLU DX (MEDICARE ONLY) 06/18/2011 MIKAELA CANINE SERVICE TEACHER, IRENE M V72.84 PRE-OPERATIVE EXAMINATION UNSPECIFIED 06/22/2011 Ot 311 06/22/2011 Ot 319 06/22/2011 Ot 477.9 06/22/2011 Ot 521.00 06/22/2011 Ot 530.81 08/11/2011 ИВАН SOTELO STEPHENIE CARRILLO 381.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 TUBE DYSFUNCTION 08/11/2011 ИВАН SOTELO STEPHENIE CARRILLO 388.70 OTALGIA 08/11/2011 ИВАН LINEN FOLDER, STEPHENIE CARRILLO 786.07 WHEEZING 08/11/2011 381.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 TUBE DYSFUNCTION 08/11/2011 388.70 OTALGIA 08/11/2011 786.07 WHEEZING 08/11/2011 GENSWEIDER DDS, TASHI M 381.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 TUBE DYSFUNCTION 08/11/2011 GENSWEIDER DDS, TASHI M 388.70 OTALGIA 08/11/2011 GENSWEIDER DDS, TASHI M 786.07 WHEEZING 08/11/2011 ИВАН LINEN FOLDER, STEPHENIE CARRILLO 381.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 TUBE DYSFUNCTION 08/11/2011 [...] 382.00 OTITIS MEDIA ACUTE SUPPURATIVE 08/21/2011 MIKAELA CANINE SERVICE TEACHER, IRENE M 382.00 OTITIS MEDIA ACUTE SUPPURATIVE 08/21/2011 MIKAELA CANINE SERVICE TEACHER, IRENE M 382.00 OTITIS MEDIA ACUTE SUPPURATIVE 08/21/2011 MIKAELA CANINE SERVICE TEACHER, IRENE M 382.00 OTITIS MEDIA ACUTE SUPPURATIVE [...] K 318.0 MODERATE MENTAL RETARDATION 09/28/2011 OATES LINEN FOLDER, STEPHENIE GERARDO 296.31 MO DEPRESSIVE RECURRENT MILD 09/28/2011 OATES LINEN FOLDER, STEPHENIE GERARDO 318.0 MODERATE MENTAL RETARDATION 09/28/2011 OATES LINEN FOLDER, STEPHENIE GERARDO 296.31 MO DEPRESSIVE RECURRENT MILD 09/28/2011 OATES LINEN FOLDER, STEPHENIE GERARDO 318.0 MODERATE MENTAL RETARDATION 09/28/2011 OATES LINEN FOLDER, STEPHENIE GERARDO 296.31 MO DEPRESSIVE RECURRENT MILD 09/28/2011 OATES LINEN FOLDER, STEPHENIE GERARDO 318.0 MODERATE MENTAL RETARDATION 09/28/2011 MIKAELA CANINE SERVICE TEACHER, IRENE M 296.31 MO DEPRESSIVE RECURRENT MILD 09/28/2011 MIKAELA CANINE SERVICE TEACHER, IRENE M 318.0 MODERATE MENTAL RETARDATION 09/28/2011 MIKAELA CANINE SERVICE TEACHER, IRENE M 296.31 MO DEPRESSIVE RECURRENT MILD 09/28/2011 MIKAELA CANINE SERVICE TEACHER, IRENE M 318.0 MODERATE MENTAL RETARDATION 09/28/2011 MIKAELA CANINE SERVICE TEACHER, IRENE M 296.31 MO DEPRESSIVE RECURRENT MILD 09/28/2011 MIKAELA CANINE SERVICE TEACHER, IRENE M 318.0 MODERATE MENTAL RETARDATION 10/15/2011 OATES LINEN FOLDER, STEPHENIE GERARDO 296.32 MO DEPRESSIVE RECURRENT MODERATE 10/15/2011 296.32 MO DEPRESSIVE RECURRENT MODERATE 10/15/2011 ANDREW PATTERSON, TASHI M 296.32 MO DEPRESSIVE RECURRENT MODERATE 10/15/2011 OATES LINEN FOLDER, STEPHENIE GERARDO 296.32 MO DEPRESSIVE RECURRENT MODERATE 10/15/2011 296.32 MO DEPRESSIVE RECURRENT MODERATE 10/15/2011 296.32 MO DEPRESSIVE RECURRENT MODERATE 10/15/2011 296.32 MO DEPRESSIVE RECURRENT MODERATE 10/15/2011 296.32 MO DEPRESSIVE RECURRENT MODERATE 10/15/2011 ROSALINDA SINGLETARY DO 296.32 MO DEPRESSIVE RECURRENT MODERATE 10/15/2011 LUKASZ CHOE, JAY Champagne 296.32 MO DEPRESSIVE RECURRENT MODERATE 10/15/2011 MARNIE PORTER DO K 296.32 MO DEPRESSIVE RECURRENT MODERATE 10/15/2011 OATES LINEN FOLDER, STEPHENIE GERARDO 296.32 MO DEPRESSIVE RECURRENT MODERATE 10/15/2011 OATES LINEN FOLDER, STEPHENIE GERARDO 296.32 MO DEPRESSIVE RECURRENT MODERATE [...] APRN 300.00 AN ANXIETY UNSPEC 02/16/2013 MIKAELA CANINE SERVICE TEACHER, IRENE M 296.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 NOS 02/16/2013 MIKAELA CANINE SERVICE TEACHER, IRENE M 298.9 P PSYCHOSIS NOS 02/16/2013 MIKAELA CANINE SERVICE TEACHER, IRENE M 300.00 AN ANXIETY UNSPEC 02/16/2013 MIKAELA CANINE SERVICE TEACHER, IRENE M 296.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 NOS 02/16/2013 MIKAELA CANINE SERVICE TEACHER, IRENE M 298.9 P PSYCHOSIS NOS 02/16/2013 MIKAELA CANINE SERVICE TEACHER, IRENE M 300.00 AN ANXIETY UNSPEC 02/16/2013 MIKAELA CANINE SERVICE TEACHER, IRENE M 296.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 NOS 02/16/2013 MIKAELA CANINE SERVICE TEACHER, IRENE M 298.9 P PSYCHOSIS NOS 02/16/2013 MIKAELA CANINE SERVICE TEACHER, IRENE M 300.00 AN ANXIETY UNSPEC 06/29/2014 MIKAELA CANINE SERVICE TEACHER, IRENE M 311 MO DEPRESS NOS 06/29/2014 MIKAELA CANINE SERVICE TEACHER, IRENE M 311 MO DEPRESS NOS 06/29/2014 MIKAELA CANINE SERVICE TEACHER, IRENE M 311 MO DEPRESS NOS 10/15/2014 [...] 789.06 ABDOMINAL PAIN, EPIGASTRIC 12/15/2014 DERRICK OLMOS TRIMMER OPERATOR THREE KNIFE Ot 530.81 12/15/2014 DERRICK OLMOS TRIMMER OPERATOR THREE KNIFE Ot 786.50 12/15/2014 DERRICK OLMOS TRIMMER OPERATOR THREE KNIFE Ot 796.2 12/31/2014 BAIDERRICK SONG TRIMMER OPERATOR THREE KNIFE Ot 530.81 12/31/2014 BAIDERRICK SONG TRIMMER OPERATOR THREE KNIFE Ot 786.50 12/31/2014 BAIDERRICK SONG TRIMMER OPERATOR THREE KNIFE Ot 796.2 12/17/2016 ISAAK DELCID SHAUN Macias [...] 12/17/2016 ISAAK , SHAUN K Ot Y92.410 [facility] [address] 12/17/2016 ISAAK DELCID SHAUN K Ot Y99.8 OTHER EXTERNAL CAUSE STATUS 12/17/2016 ISAAK DELCID SHAUN Macias Ot Z79.899 OTHER CARTOON DESIGNER (CURRENT) DRUG THERAPY 12/18/2016 ISAAK DELCID SHAUN [...] CAR 12/18/2016 ISAAK SHAUN K Ot Y92.410 [facility] [address] 12/18/2016 ISAAK DELCID SHAUN Macias Ot Y99.8 OTHER EXTERNAL CAUSE STATUS 12/18/2016 ISAAK DELCID SHAUN Macias Ot Z79.899 OTHER [facility] (CURRENT) DRUG THERAPY 03/23/2017 Ot V72.84 EXAM PRE- OPERATIVE NOS 03/23/2017 DERRICK OLMOS TRIMMER OPERATOR THREE KNIFE Ot 530.81 ESOPHAGEAL REFLUX 03/23/2017 DERRICK OLMOS TRIMMER OPERATOR THREE KNIFE Ot 786.50 CHEST PAIN NOS 03/23/2017 DERRICK OLMOS TRIMMER OPERATOR THREE KNIFE Ot 796.2 ELEV BL PRES W/O HYPERTN [...] 03/24/2017 ISAAK DELCID SHAUN Macias Ot Y92.410 [facility] [address] 03/24/2017 ISAAK DELCID SHAUN [...] 08/26/2017 WARREN AVITIA MD T Ot Z79.52 CARTOON DESIGNER (CURRENT) USE OF SYSTEMIC STER 08/26/2017 WARREN [...] 08/30/2017 WARREN AVITIA MD T Ot Z79.52 CARTOON DESIGNER (CURRENT) USE OF SYSTEMIC STER 08/30/2017 WARREN [...] Procedures Code [place] [address] PSYCH IND W/MED CK 20 05/11/2012 78383 PSYCH IND W/MED CK 20 07/21/2012 Neurology Natan Garber 07/27/2012 39215 PSYCH IND W/MED CK 20 08/15/2012 91385 ROUTINE VENIPUNCTURE 10/26/2012 87748 CBC 10/26/2012 10155 CMP 10/26/2012 67948 MAGNESIUM 10/26/2012 3131892 GFR CALC (RESULT ONLY) 10/26/2012 35811 LIPASE 10/27/2012 PSYCHIATR ROSALINDA SINGLETARY 11/25/2012 49223 PSYCH DIAGNOSTIC EVALUATION 05/04/2013 G0008 FLU ADMINISTRATION [...] protein measurement (mass/volume) 0.66 mg /dL 0.00-0.50 Bacterial blood culture - 02/17/18 19:33 Bacterial blood culture NG NRG Bacterial blood culture - 02/17/18 19:38 Bacterial blood culture NG NRG Complete urinalysis with reflex to culture - [...] urinalysis with reflex to culture YES NRG Bacterial urine culture - 02/17/18 19:45 Bacterial urine culture NG NRG Complete blood count (CBC) with automated white blood cell (WBC) differential - 02/19/18 06:00 Blood leukocytes automated count (number/volume) 9.5 10*3/uL 4.3-11.0 Blood erythrocytes automated count (number/volume) 4.74 10*6/uL 4.35-5.85 Venous blood hemoglobin measurement (mass/volume) 13.6 g/dL 13.3-17.7 Blood hematocrit (volume fraction) 41 % 40-54 Automated erythrocyte mean corpuscular volume 87 [foz_us] 80-99 Automated erythrocyte mean corpuscular hemoglobin (mass per erythrocyte) 29 pg 25-34 Automated erythrocyte mean corpuscular hemoglobin concentration measurement ( mass/volume) 33 g/dL 32-36 Automated erythrocyte distribution width ratio 12.4 % 10.0-14.5 Automated blood platelet count (count/volume) 293 10*3/uL 130-400 Automated blood platelet mean volume measurement 10.2 [foz_us] 7.4-10.4 Automated blood neutrophils/100 leukocytes 77 % 42-75 Automated blood lymphocytes/100 leukocytes 14 % 12-44 Blood monocytes/100 leukocytes 8 % 0-12 Automated blood eosinophils/100 leukocytes 1 % 0-10 Automated blood basophils/100 leukocytes 0 % 0-10 Blood neutrophils automated count (number/volume) 7.4 10*3 1.8-7.8 Blood lymphocytes automated count (number/volume) 1.3 10*3 1.0-4.0 Blood monocytes automated count (number/volume) 0.8 10*3 0.0-1.0 Automated eosinophil count 0.1 10*3/uL 0.0-0.3 Automated blood basophil count (count/volume) 0.0 10*3/uL 0.0-0.1 Comprehensive metabolic panel - 02/19/18 06:00 Serum or plasma sodium measurement (moles/volume) 139 mmol/L 135-145 Serum or plasma potassium measurement (moles/volume) 3.7 mmol/L 3.6-5.0 Serum or plasma chloride measurement (moles/volume) 104 mmol/L 98-107 Carbon dioxide 26 mmol/L 21-32 Serum or plasma anion gap determination (moles/volume) 9 mmol/L 5-14 Serum or plasma urea nitrogen measurement (mass/volume) 7 mg/dL 7-18 Serum or plasma creatinine measurement (mass/volume) 0.76 mg/dL 0.60-1.30 Serum or plasma urea nitrogen/creatinine mass ratio 9 NRG Serum or plasma creatinine measurement with calculation of estimated glomerular filtration rate > NRG Serum or plasma glucose measurement (mass/volume) 117 mg/dL 70-105 Serum or plasma calcium measurement (mass/volume) 9.2 mg/dL 8.5-10.1 Serum or plasma total bilirubin measurement (mass/volume) 0.6 mg/dL 0.1-1.0 Serum or plasma alkaline phosphatase measurement (enzymatic activity/volume) 42 U/L 40-136 Serum or plasma aspartate aminotransferase measurement (enzymatic activity/ volume) 23 U/L 5-34 Serum or plasma alanine aminotransferase measurement (enzymatic activity/volume ) 45 U/L 0-55 Serum or plasma protein measurement (mass/volume) 6.6 g/dL 6.4-8.2 Serum or plasma albumin measurement (mass/volume) 4.0 g/dL 3.2-4.5 Capillary blood glucose measurement by glucometer (mass/volume) - 02/19/18 23: 22 Capillary blood glucose measurement by glucometer (mass/volume) 132 mg/dL 70-110 Complete blood count (CBC) with automated white blood cell (WBC) differential - 02/21/18 05:00 Blood leukocytes automated count (number/volume) 9.7 10*3/uL 4.3-11.0 Blood erythrocytes automated count (number/volume) 4.91 10*6/uL 4.35-5.85 Venous blood hemoglobin measurement (mass/volume) 14.1 g/dL 13.3-17.7 Blood hematocrit (volume fraction) 43 % 40-54 Automated erythrocyte mean corpuscular volume 88 [foz_us] 80-99 Automated erythrocyte mean corpuscular hemoglobin (mass per erythrocyte) 29 pg 25-34 Automated erythrocyte mean corpuscular hemoglobin concentration measurement ( mass/volume) 33 g/dL 32-36 Automated erythrocyte distribution width ratio 12.5 % 10.0-14.5 Automated blood platelet count (count/volume) 333 10*3/uL 130-400 Automated blood platelet mean volume measurement 10.6 [foz_us] 7.4-10.4 Automated blood neutrophils/100 leukocytes 73 % 42-75 Automated blood lymphocytes/100 leukocytes 15 % 12-44 Blood monocytes/100 leukocytes 10 % 0-12 Automated blood eosinophils/100 leukocytes 2 % 0-10 Automated blood basophils/100 leukocytes 1 % 0-10 Blood neutrophils automated count (number/volume) 7.1 10*3 1.8-7.8 Blood lymphocytes automated count (number/volume) 1.4 10*3 1.0-4.0 Blood monocytes automated count (number/volume) 1.0 10*3 0.0-1.0 Automated eosinophil count 0.2 10*3/uL 0.0-0.3 Automated blood basophil count (count/volume) 0.1 10*3/uL 0.0-0.1 Whole blood basic metabolic panel - 02/21/18 05:00 Serum or plasma sodium measurement (moles/volume) 146 mmol/L 135-145 Serum or plasma potassium measurement (moles/volume) 4.0 mmol/L 3.6-5.0 Serum or plasma chloride measurement (moles/volume) 104 mmol/L 98-107 Carbon dioxide 25 mmol/L 21-32 Serum or plasma anion gap determination (moles/volume) 17 mmol/L 5-14 Serum or plasma urea nitrogen measurement (mass/volume) 11 mg/dL 7-18 Serum or plasma creatinine measurement (mass/volume) 0.79 mg/dL 0.60-1.30 Serum or plasma urea nitrogen/creatinine mass ratio 14 NRG Serum or plasma creatinine measurement with calculation of estimated glomerular filtration rate > NRG Serum or plasma glucose measurement (mass/volume) 100 mg/dL 70-105 Serum or plasma calcium measurement (mass/volume) 10.0 mg/dL 8.5-10.1 CULTURE, URINE - 03/02/18 12:03 CULTURE, URINE, ROUTINE SEE NOTE NRG Complete blood count (CBC) with automated white blood cell (WBC) differential - 03/17/18 06:57 Blood leukocytes automated count (number/volume) 17.3 10*3/uL 4.3-11.0 Blood erythrocytes automated count (number/volume) 5.40 10*6/uL 4.35-5.85 Venous blood hemoglobin measurement (mass/volume) 15.8 g/dL 13.3-17.7 Blood hematocrit (volume fraction) 47 % 40-54 Automated erythrocyte mean corpuscular volume 86 [foz_us] 80-99 Automated erythrocyte mean corpuscular hemoglobin (mass per erythrocyte) 29 pg 25-34 Automated erythrocyte mean corpuscular hemoglobin concentration measurement ( mass/volume) 34 g/dL 32-36 Automated erythrocyte distribution width ratio 12.5 % 10.0-14.5 Automated blood platelet count (count/volume) 368 10*3/uL 130-400 Automated blood platelet mean volume measurement 10.9 [foz_us] 7.4-10.4 Automated blood neutrophils/100 leukocytes 91 % 42-75 Automated blood lymphocytes/100 leukocytes 2 % 12-44 Blood monocytes/100 leukocytes 7 % 0-12 Automated blood eosinophils/100 leukocytes 0 % 0-10 Automated blood basophils/100 leukocytes 0 % 0-10 Blood neutrophils automated count (number/volume) 15.7 10*3 1.8-7.8 Blood lymphocytes automated count (number/volume) 0.3 10*3 1.0-4.0 Blood monocytes automated count (number/volume) 1.3 10*3 0.0-1.0 Automated eosinophil count 0.0 10*3/uL 0.0-0.3 Automated blood basophil count (count/volume) 0.0 10*3/uL 0.0-0.1 Blood lactic acid measurement (moles/volume) - 03/17/18 06:57 Blood lactic acid measurement (moles/volume) 5.63 mmol/L 0.50-2.00 PT panel in platelet poor plasma by coagulation assay - 03/17/18 06:57 Prothrombin time (PT) in platelet poor plasma by coagulation assay 15.0 s 12.2-14.7 INR in platelet poor plasma or blood by coagulation assay 1.2 0.8-1.4 Activated partial thromboplastin time (aPTT) in platelet poor plasma bycoagulation assay - 03/17/18 06:57 Activated partial thromboplastin time (aPTT) in platelet poor plasma bycoagulation assay 24 s 24-35 Comprehensive metabolic panel - 03/17/18 06:57 Serum or plasma sodium measurement (moles/volume) 149 mmol/L 135-145 Serum or plasma potassium measurement (moles/volume) 3.6 mmol/L 3.6-5.0 Serum or plasma chloride measurement (moles/volume) 109 mmol/L 98-107 Carbon dioxide 20 mmol/L 21-32 Serum or plasma anion gap determination (moles/volume) 20 mmol/L 5-14 Serum or plasma urea nitrogen measurement (mass/volume) 24 mg/dL 7-18 Serum or plasma creatinine measurement (mass/volume) 1.83 mg/dL 0.60-1.30 Serum or plasma urea nitrogen/creatinine mass ratio 13 NRG Serum or plasma creatinine measurement with calculation of estimated glomerular filtration rate 41 NRG Serum or plasma glucose measurement (mass/volume) 159 mg/dL 70-105 Serum or plasma calcium measurement (mass/volume) 10.2 mg/dL 8.5-10.1 Serum or plasma total bilirubin measurement (mass/volume) 1.3 mg/dL 0.1-1.0 Serum or plasma alkaline phosphatase measurement (enzymatic activity/volume) 45 U/L 40-136 Serum or plasma aspartate aminotransferase measurement (enzymatic activity/ volume) 70 U/L 5-34 Serum or plasma alanine aminotransferase measurement (enzymatic activity/volume ) 79 U/L 0-55 Serum or plasma protein measurement (mass/volume) 8.1 g/dL 6.4-8.2 Serum or plasma albumin measurement (mass/volume) 4.8 g/dL 3.2-4.5 Blood manual differential performed detection - 03/17/18 06:57 Blood monocytes/100 leukocytes 3 % NRG Manual blood segmented neutrophils/100 leukocytes 94 % NRG Blood band neutrophils/100 leukocytes 0 % NRG Manual blood lymphocytes/100 leukocytes 3 % NRG Manual eosinophils/100 leukocytes in nose 0 % NRG Manual blood basophils/100 leukocytes 0 % NRG Blood erythrocyte morphology finding identification NORMAL NRG Serum or plasma ethanol measurement (mass/volume) - 03/17/18 06:57 Serum or plasma ethanol measurement (mass/volume) < mg/dL <10 Bacterial blood culture - 03/17/18 06:57 QUANTITY OF GROWTH . NRG Bacterial blood culture SEE COMMEN NRG Bacterial blood culture - 03/17/18 06:57 QUANTITY OF GROWTH . NRG Bacterial blood culture SEE COMMEN NRG Complete urinalysis with reflex to culture - 03/17/18 07:00 Urine color determination MILLER NRG Urine clarity determination CLEAR NRG Urine pH measurement by test strip 5 5-9 Specific gravity of urine by test strip 1.025 1.016- 1.022 Urine protein assay by test strip, semi-quantitative 3+ NEGATIVE Urine glucose detection by automated test strip NEGATIVE NEGATIVE Erythrocytes detection in urine sediment by light microscopy 1+ NEGATIVE Urine ketones detection by automated test strip 2+ NEGATIVE Urine nitrite detection by test strip NEGATIVE NEGATIVE Urine total bilirubin detection by test strip 1+ NEGATIVE Urine urobilinogen measurement by automated test strip (mass/volume) 1 mg/dL NORMAL Urine leukocyte esterase detection by dipstick 1+ NEGATIVE Automated urine sediment erythrocyte count by microscopy (number/high power field) RARE NRG Automated urine sediment leukocyte count by microscopy (number/high power field ) RARE NRG Bacteria detection in urine sediment by light microscopy TRACE NRG Squamous epithelial cells detection in urine sediment by light microscopy RARE NRG Crystals detection in urine sediment by light microscopy PRESENT NRG Casts detection in urine sediment by light microscopy NONE NRG Mucus detection in urine sediment by light microscopy NEGATIVE NRG Complete urinalysis with reflex to culture NO NRG Amorphous sediment detection in urine sediment by light microscopy RARE NITESH URATES NRG Other elements identification in urine sediment by light microscopy FEW SPERM NRG Bacterial urine culture - 03/17/18 07:00 Bacterial urine culture NG NRG Streptococcus pyogenes antigen detection - 03/17/18 08:23 Streptococcus pyogenes antigen detection NEGATIVE NEGATIVE Influenza virus A and B antigen detection - 03/17/18 08:23 FLU RESULT NEGATIVE FOR INFLUENZA A AND B ANTIGENS BY IA NRG Bacterial throat culture - 03/17/18 08:23 Bacterial throat culture NBS NRG Serum or plasma lactate measurement (moles/volume) - 03/17/18 08:50 Serum or plasma lactate measurement (moles/volume) 1.53 mmol/L 0.50-2.00 Complete urinalysis with reflex to culture - 03/17/18 09:00 Urine color determination YELLOW NRG Urine clarity determination SLIGHTLY CLOUDY NRG Urine pH measurement by test strip 5 5-9 Specific gravity of urine by test strip 1.025 1.016- 1.022 Urine protein assay by test strip, semi-quantitative 3+ NEGATIVE Urine glucose detection by automated test strip NEGATIVE NEGATIVE Erythrocytes detection in urine sediment by light microscopy 5+ NEGATIVE Urine ketones detection by automated test strip 4+ NEGATIVE Urine nitrite detection by test strip NEGATIVE NEGATIVE Urine total bilirubin detection by test strip NEGATIVE NEGATIVE Urine urobilinogen measurement by automated test strip (mass/volume) 1 mg/dL NORMAL Urine leukocyte esterase detection by dipstick 1+ NEGATIVE Automated urine sediment erythrocyte count by microscopy (number/high power field) RARE NRG Automated urine sediment leukocyte count by microscopy (number/high power field ) [HPF] NRG Bacteria detection in urine sediment by light microscopy TRACE NRG Squamous epithelial cells detection in urine sediment by light microscopy RARE NRG Crystals detection in urine sediment by light microscopy PRESENT NRG Casts detection in urine sediment by light microscopy PRESENT NRG Mucus detection in urine sediment by light microscopy SMALL NRG Complete urinalysis with reflex to culture NO NRG Amorphous sediment detection in urine sediment by light microscopy MOD NITESH URATES NRG Hyaline casts detection in urine sediment by light microscopy 0-2 NRG Urine drug screening test - 03/17/18 09:00 Urine phencyclidine detection by screening method NEGATIVE NEGATIVE Urine benzodiazepines detection by screening method NEGATIVE NEGATIVE Urine cocaine detection NEGATIVE NEGATIVE Urine amphetamines detection by screening method NEGATIVE NEGATIVE Urine methamphetamine detection by screening method NEGATIVE NEGATIVE Urine cannabinoids detection by screening method NEGATIVE NEGATIVE Urine opiates detection by screening method NEGATIVE NEGATIVE Urine barbiturates detection NEGATIVE NEGATIVE Screening urine tricyclic antidepressants detection NEGATIVE NEGATIVE Urine methadone detection by screening method NEGATIVE NEGATIVE Urine oxycodone detection NEGATIVE NEGATIVE Urine propoxyphene detection NEGATIVE NEGATIVE Methicillin resistant Staphylococcus aureus (MRSA) screening culture - 11:55 Methicillin resistant Staphylococcus aureus (MRSA) screening culture NEG NRG Cerebrospinal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
[2018-03-27 14:51] LABS: BILIRUBIN,URINE NEGATIVE (NEGATIVE); CLARITY,URINE CLEAR; COLOR,URINE YELLOW; GLUCOSE, URINE (UA) NEGATIVE (NEGATIVE); KETONES,URINE NEGATIVE (NEGATIVE); LEUKOCYTE ESTERASE ,URINE 3+ (NEGATIVE); NITRITE,URINE NEGATIVE (NEGATIVE); PH,URINE 7 (5-9); PROTEIN,URINE NEGATIVE (NEGATIVE); UROBILINOGEN,URINE NORMAL (NORMAL)
[2018-03-27 15:07] LABS: BACTERIA,URINE NEGATIVE /HPF; SQUAMOUS EPITHELIAL CELL,UR RARE /HPF
[2018-03-27 15:17] LABS: BASOPHILS # (AUTO) 0.1 10^3/uL (0.0-0.1); BASOPHILS % (AUTO) 1 % (0-10); EOSINOPHILS # (AUTO) 0.4 10^3/uL (0.0-0.3); EOSINOPHILS % (AUTO) 4 % (0-10); HEMATOCRIT 41 % (40-54); HEMOGLOBIN 13.4 G/DL (13.3-17.7); LYMPHOCYTES # (AUTO) 1.8 X 10^3 (1.0-4.0); LYMPHOCYTES % (AUTO) 17 % (12-44); MEAN CORPUSCULAR HEMOGLOBIN 29 PG (25-34); MEAN CORPUSCULAR HGB CONC 33 G/DL (32-36); MEAN CORPUSCULAR VOLUME 88 FL (80-99); MONOCYTES # (AUTO) 1.3 X 10^3 (0.0-1.0); MONOCYTES % (AUTO) 12 % (0-12); NEUTROPHILS # (AUTO) 6.9 X 10^3 (1.8-7.8); NEUTROPHILS % (AUTO) 66 % (42-75); PLATELET COUNT 454 10^3/uL (130-400); RED BLOOD COUNT 4.69 10^6/uL (4.35-5.85); RED CELL DISTRIBUTION WIDTH 12.4 % (10.0-14.5); WHITE BLOOD COUNT 10.4 10^3/uL (4.3-11.0)
--- NOTE | 2018-03-27 15:22 | ED GU-Male ---
General Chief Complaint: -Male Stated Complaint: CANT STOP URINATING,PASSING BLOOD IN STOOL Nursing Triage Note: FATHER STATES PT URINATING FREQUENTLY, STATES UNABLE TO HOLD. RELEASED FROM HOSPITAL WEDNESDAY Source: patient, family (father) Exam Limitations: physical impairment History of Present Illness Date Seen by Provider: Mar 27, 2018 Time Seen by Provider: 14:30 Initial Comments Patient is a 37-year-old male who presents to the emergency room with complaints of frequent urination. The father reports that for the past month he has been wetting the bed more frequently and having a need to urinate but is also been drinking large quantities of fluids. His father reports that this morning he woke up and drink a pitcher full of water and they have, no breakfast. He was released from the hospital on 03/21/18 after a four-day stay with severe sepsis of unknown origin. His father reports that since his discharge his frequent urination has been worse. He has not seen Dr. Patel since he was discharged. Patient is MR and father is doing communicating. His father reports that neurologically he is at baseline. Timing/Duration: other (1 month) Associated Symptoms: urinary frequency Allergies and Home Medications Allergies Coded Allergies: NKANo Known Allergies (Unverified Allergy, Mild, 09/22/09) Home Medications Clonazepam 0.5 Mg Tablet, 0.5 MG PO DAILY PRN for ANXIETY, (Reported) Lurasidone HCl 60 Mg Tablet, 60 MG PO DAILY, (Reported) Montelukast Sodium 10 Mg Tablet, 10 MG PO HS, (Reported) Omeprazole 20 Mg Capsule.dr, 20 MG PO DAILY, (Reported) Propranolol HCl 20 Mg Tablet, 20 MG PO BID, (Reported) Sulfamethoxazole/Trimethoprim 1 Each Tablet, 1 EACH PO BID Prescribed by: ELICEO FLAHERTY on 03/21/18 [id number] Patient Home Medication List Home Medication List Reviewed: Yes Review of Systems Review of Systems Constitutional: see HPI; No chills, No fever Genitourinary: see HPI, frequency, incontinence All Other Systemes Reviewed Negative Unless Noted: Yes Past Clpdcxq-Adlxpy-Zdrasu Hx Past Med/Social Hx: Reviewed Nursing Past Med/Soc Hx Patient Social History 2nd Hand Smoke Exposure: No Recent Foreign Travel: No Contact w/Someone Who Travel: No Recent Infectious Disease Expo: No Recent Hopitalizations: No Immunizations Up To Date Tetanus Booster (TDap): Unknown Date of Influenza Vaccine: Jun 02, 2012 Seasonal Allergies Seasonal Allergies: Yes Past Medical History Surgeries: No Gallbladder Respiratory: Yes Asthma Cardiac: Yes 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, ESSENTIAL TREMORS) Developmental Disorder Genitourinary: No Gastrointestinal: Yes Gastroesophageal Reflux Musculoskeletal: No Endocrine: Yes (OBESITY) HEENT: No Cancer: No Psychosocial: Yes (Mood Disorder, OCD) Anxiety, Depression Integumentary: No Blood Disorders: No Adverse Reaction/Blood Tranf: No Family Medical History Reviewed Nursing Family Hx Heart Disease Physical Exam Vital Signs Vital Signs - First Documented 03/27/18 14:51 Temp 98.0 Pulse 98 Resp 20 B/P (MAP) 141/102 (115) Pulse Ox 99 O2 Delivery Room Air Capillary Refill : Less Than 3 Seconds Height, Weight, BMI Height: 5'4.00" Weight: 200lbs. 6.0oz. 90.704402lt; 36.8 BMI Method:Estimated General Appearance: WD/WN, no apparent distress Neck: non-tender, full range of motion, supple, normal inspection Cardiovascular: normal peripheral pulses, regular rate, rhythm, no edema, no gallop, no JVD, no murmur Respiratory: chest non-tender, lungs clear, normal breath sounds, no respiratory distress, no accessory muscle use Gastrointestinal: normal bowel sounds, non tender, soft, no organomegaly, no pulsatile mass Neurologic/Psychiatric: alert, normal mood/affect Skin: normal color, warm/dry Focused Exam Lactate Level 03/27/18 15:00: Lactic Acid Level 1.74 Lactic Acid Level Laboratory Tests Test 03/27/18 15:00 Lactic Acid Level 1.74 MMOL/L (0.50-2.00) Progress/Results/Core Measures Suspected Sepsis Recent Fever Within 48 Hours: No Infection Criteria Present: None New/Unexplained Altered Menta: No Sepsis Screen: No Definite Risk SIRS Temperature:98.0 Pulse: 98 Respiratory Rate: 20 Laboratory Tests 03/27/18 15:00: White Blood Count 10.4 Blood Pressure 141 /102 Mean: 115 03/27/18 15:00: Lactic Acid Level 1.74 Laboratory Tests 03/27/18 15:00: Creatinine 0.91, INR Comment 1.0, Platelet Count 454H, Total Bilirubin 0.4 Results/Orders Lab Results Laboratory Tests Test 03/27/18 13:48 03/27/18 14:40 03/27/18 15:00 Range/Units Lab Scanned Report Referred Lab Report [id number] Urine Color YELLOW Urine Clarity CLEAR Urine pH 7 5-9 Urine Specific [place] 1.005 L 1.016-1.022 Urine Protein NEGATIVE NEGATIVE Urine Glucose (UA) NEGATIVE NEGATIVE Urine Ketones NEGATIVE NEGATIVE Urine Nitrite NEGATIVE NEGATIVE Urine Bilirubin NEGATIVE NEGATIVE Urine Urobilinogen NORMAL NORMAL MG/DL Urine Leukocyte Esterase 3+ H NEGATIVE Urine RBC (Auto) NEGATIVE NEGATIVE Urine RBC NONE /HPF Urine WBC 2-5 /HPF Urine Squamous Epithelial Cells RARE /HPF Urine Crystals NONE /LPF Urine Bacteria NEGATIVE /HPF Urine Casts NONE /LPF Urine Mucus NEGATIVE /LPF Urine Culture Indicated NO White Blood Count 10.4 4.3-11.0 10^3/uL Red Blood Count 4.69 4.35-5.85 10^6/uL Hemoglobin 13.4 13.3-17.7 G/DL Hematocrit 41 40-54 % Mean Corpuscular Volume 88 80-99 FL Mean Corpuscular Hemoglobin 29 25-34 PG Mean Corpuscular Hemoglobin Concent 33 32-36 G/DL Red Cell Distribution Width 12.4 10.0-14.5 % Platelet Count 454 H 130-400 10^3/uL Mean Platelet Volume 10.0 7.4-10.4 FL Neutrophils (%) (Auto) 66 42-75 % Lymphocytes (%) (Auto) 17 12-44 % Monocytes (%) (Auto) 12 0-12 % Eosinophils (%) (Auto) 4 0-10 % Basophils (%) (Auto) 1 0-10 % Neutrophils # (Auto) 6.9 1.8-7.8 X 10^3 Lymphocytes # (Auto) 1.8 1.0-4.0 X 10^3 Monocytes # (Auto) 1.3 H 0.0-1.0 X 10^3 Eosinophils # (Auto) 0.4 H 0.0-0.3 10^3/uL Basophils # (Auto) 0.1 0.0-0.1 10^3/uL Prothrombin Time 13.3 12.2-14.7 SEC INR Comment 1.0 0.8-1.4 Activated Partial Thromboplast Time 25 24-35 SEC Sodium Level 141 135-145 MMOL/L Potassium Level 3.0 L 3.6-5.0 MMOL/L Chloride Level 97 L 98-107 MMOL/L Carbon Dioxide Level 30 21-32 MMOL/L Anion Gap 14 5-14 MMOL/L Blood Urea Nitrogen 7 7-18 MG/DL Creatinine 0.91 0.60-1.30 MG/DL Estimat Glomerular Filtration Rate > 60 BUN/Creatinine Ratio 8 Glucose Level 105 70-105 MG/DL Lactic Acid Level 1.74 0.50-2.00 MMOL/L Calcium Level 9.6 8.5-10.1 MG/DL Corrected Calcium 9.8 8.5-10.1 MG/DL Total Bilirubin 0.4 0.1-1.0 MG/DL Aspartate Amino Transf (AST/SGOT) 39 H 5-34 U/L Alanine Aminotransferase (ALT/SGPT) 84 H 0-55 U/L Alkaline Phosphatase 43 40-136 U/L Total Protein 6.3 L 6.4-8.2 GM/DL Albumin 3.7 3.2-4.5 GM/DL Micro Results Microbiology 03/27/18 Urine Culture - Final, Complete See Report My Orders Orders - NAYANA SOSA Ua Culture If Indicated (03/27/18 14:42) Cbc With Automated Diff (03/27/18 14:57) Comprehensive Metabolic Panel (03/27/18 14:57) Urine Culture (03/27/18 14:57) Protime With Inr (03/27/18 14:57) Partial Thromboplastin Time (03/27/18 14:57) Saline Lock/Iv-Start (03/27/18 14:57) Saline Lock/Iv-Start (03/27/18 14:57) Lactic Acid Analyzer (03/27/18 14:57) Vital Signs/I&O 03/27/18 03/27/18 14:51 16:44 Temp 98.0 98.0 Pulse 98 98 Resp 20 20 B/P (MAP) 141/102 (115) 145/99 (115) Pulse Ox 99 99 O2 Delivery Room Air Capillary Refill : Less Than 3 Seconds Blood Pressure Mean: 115 Progress Note : Time: 16:20 Progress Note I have seen and evaluated the patient. I have informed him and his father of normal studies. His father reports that he only has a home health care worker for 8 hours out of the day. We discussed the possibility of getting him a home health care worker for longer times or even 24 hours a day. He is a patient of [facility]. Father agrees with close follow up with Dr. Patel and looking into longer in home care a day. Return precautions were given. Departure Impression Primary Impression: Urinary frequency Additional Impression: Incontinent of urine Disposition: HOME, SELF-CARE Condition: Stable/Unchanged Departure-Patient Inst. Decision time for Depature: 16:28 Referrals: JOAO PATEL MD (PCP/Family) Primary Care Physician Patient Instructions: Urinary Incontinence, Male (DC) Add. Discharge Instructions: Take all medications as previously prescribed. Follow-up with Dr. Patel within 1 week for recheck. Return back to the emergency room for any worsening symptoms or concerns as needed. All discharge instructions reviewed with patient and/or family. Voiced understanding. NAYANA SOSA Mar 27, 2018 15:22
[2018-03-27 15:34] LABS: PROTHROMBIN TIME PATIENT 13.3 SEC (12.2-14.7)
[2018-03-27 15:40] LABS: ALANINE AMINOTRANSFERASE 84 U/L (0-55); ALBUMIN 3.7 GM/DL (3.2-4.5); ALKALINE PHOSPHATASE 43 U/L (40-136); BILIRUBIN,TOTAL 0.4 MG/DL (0.1-1.0); BUN/CREATININE RATIO 8; CALCIUM 9.6 MG/DL (8.5-10.1); CARBON DIOXIDE 30 MMOL/L (21-32); CHLORIDE 97 MMOL/L (98-107); CREATININE SERUM 0.91 MG/DL (0.60-1.30); GFR ESTIMATED > 60; GLUCOSE 105 MG/DL (70-105); SODIUM 141 MMOL/L (135-145); TOTAL PROTEIN 6.3 GM/DL (6.4-8.2)
[2018-03-27 16:44] VITALS: BP 145/99
== END 2018-03-27 16:45 | disposition home or self-care (01) ==
LOC: EDUNIT# 13:47 → ER 13:48
DX: R39.81 Functional urinary incontinence (principal); R32 Unspecified urinary incontinence; J45.909 Unspecified asthma, uncomplicated; K21.9 Gastro-esophageal reflux disease without esophagitis; F41.9 Anxiety disorder, unspecified; F32.9 Major depressive disorder, single episode, unspecified; E66.9 Obesity, unspecified; F42.9 Obsessive-compulsive disorder, unspecified; Z68.34 Body mass index [BMI] 34.0-34.9, adult
CPT/HCPCS: 36415; 80053; 81000; 83605; 85025; 85610; 85730; 87088

== ENCOUNTER 2018-03-31 20:41 | Emergency (ER) | payer MEDICARE, MEDICAID ==
[~2018-03-31] VITALS: Ht 162.6 cm; Wt 90.9 kg
[2018-03-31] MEDS ORDERED: NS IV 1000 ML 1,000 ML IV ONE (21:06)
[2018-03-31 21:32] LABS: BASOPHILS # (AUTO) 0.1 10^3/uL (0.0-0.1); BASOPHILS % (AUTO) 1 % (0-10); EOSINOPHILS # (AUTO) 0.3 10^3/uL (0.0-0.3); EOSINOPHILS % (AUTO) 3 % (0-10); HEMATOCRIT 42 % (40-54); HEMOGLOBIN 14.1 G/DL (13.3-17.7); LYMPHOCYTES # (AUTO) 2.3 X 10^3 (1.0-4.0); LYMPHOCYTES % (AUTO) 20 % (12-44); MEAN CORPUSCULAR HEMOGLOBIN 29 PG (25-34); MEAN CORPUSCULAR HGB CONC 34 G/DL (32-36); MEAN CORPUSCULAR VOLUME 86 FL (80-99); MEAN PLATELET VOLUME 9.8 FL (7.4-10.4); MONOCYTES # (AUTO) 1.1 X 10^3 (0.0-1.0); MONOCYTES % (AUTO) 10 % (0-12); NEUTROPHILS # (AUTO) 7.7 X 10^3 (1.8-7.8); NEUTROPHILS % (AUTO) 67 % (42-75); PLATELET COUNT 465 10^3/uL (130-400); RED CELL DISTRIBUTION WIDTH 12.5 % (10.0-14.5); WHITE BLOOD COUNT 11.5 10^3/uL (4.3-11.0)
--- NOTE | 2018-03-31 21:45 | ED General ---
General Chief Complaint: General Problems/Pain Stated Complaint: NOT FEELING WELL Nursing Triage Note: GENERALIZED MALAISE. INCREASED URINATION. ON ABX FOR UTI. Nursing Sepsis Screen: Possible Sepsis Risk Source of Information: Family (DAD--LIMITED HISTORIAN) Exam Limitations: Other (PT IS NON-VERBAL) History of Present Illness Date Seen by Provider: Mar 31, 2018 Time Seen by Provider: 21:05 Initial Comments PT ARRIVES VIA POV WITH DAD DAD STATES "HE SAID HE WASN'T FEELING GOOD" TODAY--( BUT DAD ALSO SAYS PT IS NON -VERBAL) DAD RELATES THAT ALL SYMPTOMS ARE ONGOING "SINCE THE FIRST TIME HE WAS IN THE HOSPITAL" PT WAS ADMITTED 02/20-02/22 FOR UTI PT WAS RE-ADMITTED 03/17-03/21 FOR SEVERE SEPSIS PT RETURNED TO ER 03/27 FOR URINARY FREQUENCY-NO RX DAD REPORTS THAT PT WAS ON ANTIBIOTIC "AFTER THE SECOND TIME" HE WAS ADMITTED TO HOSPITAL, BUT STATES THAT HE FINISHED IT "A COUPLE OF WEEKS AGO" AND HAS NOT BEEN ON ANY ANTIBIOTICS SINCE THEN DAD STATES PT HAS HAD DIARRHEA SINCE HIS FIRST HOSPITALIZATION, AND IT CONTINUES --STATES HE HAD ONE EPISODE OF DIARRHEA THIS AM DAD STATES "HE CAN'T GO TO THE BATHROOM-HE'S GOING ALL OVER THE HOUSE' --STATES HE HAS BEEN URINATING AND STOOLING ALL OVER THE HOUSE SINCE FIRST HOSPITALIZATION DAD STATES PT IS "ONLY EATING 2 OR 3 BITES' SINCE FIRST HOSPITALIZATION, AND STATES SOME TIMES HE LOOKS AT FOOD AND DOESN'T EAT IT AT ALL--JUST GETS UP FROM THE TABLE AND WALKS AWAY PT HAS BEEN DRINKING LARGE AMOUNTS OF LIQUIDS--STATES HE DRINKS A WHOLE PITCHER OF WATER AND OVER A HALF A GALLON OF MILK A DAY,SOMETIMES MORE. DAD STATES PT HAS NO HAD ANY VOMITING, OR COMPLAINED OF ABDOMINAL PAIN HAS NOT HAD A COUGH OR SHORTNESS OF BREATH PT HAS CONTINUED URINARY FREQUENCY NO CHANGE IN MENTATION DAD HAS NOT CHECKED HIS TEMPERATURE AT ANY TIME--STATES HE DOES NOT HAVE A THERMOMETER PT DOES HAVE A FEVER ON ARRIVAL TO ER FIRST DAD STATES THAT HE HAS NOT SEEN ANYONE SINCE HE HAS BEEN DISMISSED FROM HOSPITAL EITHER TIME THEN STATES THAT HE DID SEE SOMEONE AFTER ONE OF THE HOSPITALIZATIONS NEXT APPOINTMENT IS IN APRIL. Allergies and Home Medications Allergies Coded Allergies: NKANo Known Allergies (Unverified Allergy, Mild, 09/22/09) Home Medications Clonazepam 0.5 Mg Tablet, 0.5 MG PO DAILY PRN for ANXIETY, (Reported) Lurasidone HCl 60 Mg Tablet, 60 MG PO DAILY, (Reported) Montelukast Sodium 10 Mg Tablet, 10 MG PO HS, (Reported) Omeprazole 20 Mg Capsule.dr, 20 MG PO DAILY, (Reported) Propranolol HCl 20 Mg Tablet, 20 MG PO BID, (Reported) Sulfamethoxazole/Trimethoprim 1 Each Tablet, 1 EACH PO BID Prescribed by: ELICEO FLAHERTY on 03/21/18 1372 Patient Home Medication List Home Medication List Reviewed: Yes Review of Systems Review of Systems Constitutional: see HPI (PT IS NON-VERBAL) Past Sdxappx-Nrrreg-Yddwih Hx Patient Social History Alcohol Use: Denies Use Recreational Drug Use: No Smoking Status: Never a Smoker 2nd Hand Smoke Exposure: No Recent Foreign Travel: No Contact w/Someone Who Travel: No Recent Infectious Disease Expo: No Recent Hopitalizations: Yes (UTI) Immunizations Up To Date Tetanus Booster (TDap): Unknown Date of Influenza Vaccine: Jun 02, 2012 Seasonal Allergies Seasonal Allergies: Yes Past Medical History Surgeries: Yes Gallbladder Respiratory: Yes Asthma Cardiac: No 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, ESSENTIAL TREMORS) Developmental Disorder Genitourinary: Yes UTI-Chronic Gastrointestinal: Yes Gastroesophageal Reflux Musculoskeletal: No Endocrine: Yes (OBESITY) HEENT: No Cancer: No Psychosocial: Yes (Mood Disorder, OCD) Anxiety, Depression Integumentary: No Blood Disorders: No Adverse Reaction/Blood Tranf: No Family Medical History Heart Disease Physical Exam Vital Signs Vital Signs - First Documented 03/31/18 21:01 Temp 100.3 Pulse 114 Resp 18 B/P (MAP) 144/93 (110) Pulse Ox 95 O2 Delivery Room Air Capillary Refill : Less Than 3 Seconds Height, Weight, BMI Height: 5'4.00" Weight: 200lbs. 6.0oz. [id number]; 36.8 BMI Method:Estimated General Appearance: No Apparent Distress, Obese, Other (PT HOLDS ARMS FLEXED AT ELBOWS AND HANDS HELD OUT, WITH MILD TREMORS. IS NOTED TO HAVE MILD GENERALIZED TREMORS. PT IS NON-VERBAL, BUT CAN FOLLOW SIMPLE COMMANDS WITH ENCOURAGEMENT/DIRECTION) HEENT: PERRL/EOMI, TMs Normal, Normal ENT Inspection, Pharynx Normal; No Pharyngeal Erythema, No Photophobia Neck: Full Range of Motion, Normal Inspection, Non Tender, Supple Respiratory: Normal Breath Sounds, No Accessory Muscle Use, No Respiratory Distress Cardiovascular: Regular Rate, Rhythm, No Edema, No JVD, No Murmur, Normal Peripheral Pulses Gastrointestinal: Normal Bowel Sounds, No Organomegaly, Non Tender, Soft Back: Normal Inspection, No CVA Tenderness Extremity: Normal Capillary Refill Neurologic/Psychiatric: Alert, No Motor/Sensory Deficits (GROSSLY INTACT. ), Other (FLAT AFFECT. NON-VERBAL. MILD GENERALIZED TREMOR; NORMAL MENTATION PER DAD) Focused Exam Lactate Level 03/31/18 21:20: Lactic Acid Level 1.18 Lactic Acid Level Progress/Results/Core Measures Suspected Sepsis Recent Fever Within 48 Hours: Yes Infection Criteria Present: Documented Infection New/Unexplained Altered Menta: No Sepsis Screen: Possible Sepsis Risk SIRS Temperature:100.3 Pulse: 114 Respiratory Rate: 18 Laboratory Tests 03/31/18 21:20: White Blood Count 11.5H Blood Pressure 144 /93 Mean: 110 03/31/18 21:20: Lactic Acid Level 1.18 Laboratory Tests 03/31/18 21:20: Creatinine 1.02, Platelet Count 465H, Total Bilirubin 0.5 Results/Orders Lab Results Laboratory Tests Test 03/31/18 21:20 03/31/18 22:30 Range/Units White Blood Count 11.5 H 4.3-11.0 10^3/uL Red Blood Count 4.90 4.35-5.85 10^6/uL Hemoglobin 14.1 13.3-17.7 G/DL Hematocrit 42 40-54 % Mean Corpuscular Volume 86 80-99 FL Mean Corpuscular Hemoglobin 29 25-34 PG Mean Corpuscular Hemoglobin Concent 34 32-36 G/DL Red Cell Distribution Width 12.5 10.0-14.5 % Platelet Count 465 H 130-400 10^3/uL Mean Platelet Volume 9.8 7.4-10.4 FL Neutrophils (%) (Auto) 67 42-75 % Lymphocytes (%) (Auto) 20 12-44 % Monocytes (%) (Auto) 10 0-12 % Eosinophils (%) (Auto) 3 0-10 % Basophils (%) (Auto) 1 0-10 % Neutrophils # (Auto) 7.7 1.8-7.8 X 10^3 Lymphocytes # (Auto) 2.3 1.0-4.0 X 10^3 Monocytes # (Auto) 1.1 H 0.0-1.0 X 10^3 Eosinophils # (Auto) 0.3 0.0-0.3 10^3/uL Basophils # (Auto) 0.1 0.0-0.1 10^3/uL Sodium Level 138 135-145 MMOL/L Potassium Level 3.0 L 3.6-5.0 MMOL/L Chloride Level 96 L 98-107 MMOL/L Carbon Dioxide Level 29 21-32 MMOL/L Anion Gap 13 5-14 MMOL/L Blood Urea Nitrogen 9 7-18 MG/DL Creatinine 1.02 0.60-1.30 MG/DL Estimat Glomerular Filtration Rate > 60 BUN/Creatinine Ratio 9 Glucose Level 114 H 70-105 MG/DL Lactic Acid Level 1.18 0.50-2.00 MMOL/L Calcium Level 9.9 8.5-10.1 MG/DL Corrected Calcium 9.7 8.5-10.1 MG/DL Total Bilirubin 0.5 0.1-1.0 MG/DL Aspartate Amino Transf (AST/SGOT) 52 H 5-34 U/L Alanine Aminotransferase (ALT/SGPT) 122 H 0-55 U/L Alkaline Phosphatase 47 40-136 U/L Total Protein 7.3 6.4-8.2 GM/DL Albumin 4.3 3.2-4.5 GM/DL Monoscreen NEGATIVE NEGATIVE Urine Color YELLOW Urine Clarity SLIGHTLY CLOUDY Urine pH 6 5-9 Urine Specific [place] 1.015 L 1.016-1.022 Urine Protein NEGATIVE NEGATIVE Urine Glucose (UA) NEGATIVE NEGATIVE Urine Ketones NEGATIVE NEGATIVE Urine Nitrite NEGATIVE NEGATIVE Urine Bilirubin NEGATIVE NEGATIVE Urine Urobilinogen NORMAL NORMAL MG/DL Urine Leukocyte Esterase 1+ H NEGATIVE Urine RBC (Auto) NEGATIVE NEGATIVE Urine RBC NONE /HPF Urine WBC 0-2 /HPF Urine Squamous Epithelial Cells 5-10 /HPF Urine Crystals NONE /LPF Urine Bacteria NEGATIVE /HPF Urine Casts NONE /LPF Urine Mucus LARGE H /LPF Urine Culture Indicated NO My Orders Orders - SHAUN MULLIGAN DO Saline Lock/Iv-Start (03/31/18 21:06) Cbc With Automated Diff (03/31/18 21:06) Comprehensive Metabolic Panel (03/31/18 21:06) Lactic Acid Analyzer (03/31/18 21:06) Ua Culture If Indicated (03/31/18 21:06) Blood Culture (03/31/18 21:06) Chest 1 View, Ap/Pa Only (03/31/18 21:06) Saline Lock/Iv-Start (03/31/18 21:06) Ns Iv 1000 Ml (Sodium Chloride 0.9%) (03/31/18 21:06) Straight Cath For Spec.-Adult (03/31/18 22:27) Ct Chest/Abdomen/Pelvis W (03/31/18 22:28) Iohexol Injection (Omnipaque 350 Mg/Ml 1 (03/31/18 23:00) Ns (Ivpb) (Sodium Chloride 0.9%) (03/31/18 23:00) Monotest (03/31/18 23:26) Ceftriaxone For Iv Use (Rocephin For I (03/31/18 23:45) Potassium Chloride (Tablet) (Klor Con Ta (03/31/18 23:45) Potassium Chloride (Tablet) (Klor Con Ta (03/31/18 23:38) Medications Given in ED Current Medications Medications Dose Ordered Sig/Yudi Route Start Time Stop Time Status Last Admin Dose Admin Ceftriaxone Sodium 1000 mg/ Sodium Chloride 50 ml @ 100 mls/hr ONCE ONCE IV 03/31/18 23:45 03/31/18 23:51 DC 03/31/18 23:44 100 MLS/HR Iohexol 100 ml ONCE ONCE IV 03/31/18 23:00 03/31/18 23:01 DC 03/31/18 22:58 100 ML Potassium Chloride 40 meq ONCE ONCE PO 03/31/18 23:45 03/31/18 23:51 DC 03/31/18 23:44 40 MEQ Sodium Chloride 250 ml ONCE ONCE IV 03/31/18 23:00 03/31/18 23:01 DC 03/31/18 22:58 80 ML Sodium Chloride 1,000 ml @ 0 mls/hr Q0M ONCE IV 03/31/18 21:06 03/31/18 21:09 DC 03/31/18 21:24 0 MLS/HR Vital Signs/I&O 03/31/18 03/31/18 21:01 23:49 Temp 100.3 97.1 Pulse 114 94 Resp 18 18 B/P (MAP) 144/93 (110) 136/91 (110) Pulse Ox 95 97 O2 Delivery Room Air Room Air 04/01/18 00:00 Intake Total 1050 ml Balance 1050 ml Capillary Refill : Less Than 3 Seconds Blood Pressure Mean: 110 Progress Note : Progress Note UNEVENTFUL ER STAY PT HAD NO VOMITING OR DIARRHEA DURING ER STAY NO DETERIORATION IN PT'S CONDITION DURING ER STAY Diagnostic Imaging Comments CXR--LIMITED EXAM, BUT NO ACUTE PROCESS, PER RADIOLOGIST REPORT @ 2206 CT CHEST/ABDOMEN/PELVIS--NO ACUTE PROCESS, PER RADIOLOGIST REPORT @ 2326 Reviewed: Reviewed by Me Departure Impression Primary Impression: Febrile illness Additional Impressions: possible gastroenteritis mildl elevated liver enzymes mild hypokalemia Disposition: HOME, SELF-CARE Condition: Stable Departure-Patient Inst. Referrals: JOAO KULKARNI MD (PCP/Family) Primary Care Physician Patient Instructions: Hypokalemia (DC), Liver Function Test, VIRAL SYNDROME, Viral Gastroenteritis, Adult (DC) Add. Discharge Instructions: IBUPROFEN NEEDED FOR PAIN OR FEVER LOTS OF CLEAR LIQUIDS--WATER, BROTH, JELLO, GATORADE BRATS DIET--BANANAS, RICE, APPLESAUCE, TOAST, SALTINES FOLLOW UP WITH [facility] IN 2-3 DAYS FOR FURTHER CARE All discharge instructions reviewed with patient and/or family. Voiced understanding. SHAUN MULLIGAN DO Mar 31, 2018 21:45
--- NOTE | 2018-03-31 21:52 | Diagnostic Imaging Report ---
EXAMINATION: Chest radiograph, portable AP view. DATE: March 31, 2018 at 2141 hours. INDICATION: 37-year-old male, fatigue. COMPARISON: March 17, 2018. FINDINGS: Heart size and mediastinal contours are unchanged. There is no identified pneumothorax. There is no large pleural effusion. There is no identified focal airspace consolidation. There are technical limitations of the exam relating to difficulties with exposure. IMPRESSION: 1. No identified acute cardiopulmonary abnormality. 2. Technically limited exam relating to difficulties with exposure. Dictated by: Dictated on workstation # [id number]
[2018-03-31 21:57] LABS: ALANINE AMINOTRANSFERASE 122 U/L (0-55); ALBUMIN 4.3 GM/DL (3.2-4.5); ALKALINE PHOSPHATASE 47 U/L (40-136); BILIRUBIN,TOTAL 0.5 MG/DL (0.1-1.0); BUN/CREATININE RATIO 9; CALCIUM 9.9 MG/DL (8.5-10.1); CARBON DIOXIDE 29 MMOL/L (21-32); CHLORIDE 96 MMOL/L (98-107); CREATININE SERUM 1.02 MG/DL (0.60-1.30); GFR ESTIMATED > 60; GLUCOSE 114 MG/DL (70-105); SODIUM 138 MMOL/L (135-145); TOTAL PROTEIN 7.3 GM/DL (6.4-8.2)
[2018-03-31 22:39] LABS: BILIRUBIN,URINE NEGATIVE (NEGATIVE); CLARITY,URINE SLIGHTLY CLOUDY; COLOR,URINE YELLOW; GLUCOSE, URINE (UA) NEGATIVE (NEGATIVE); KETONES,URINE NEGATIVE (NEGATIVE); LEUKOCYTE ESTERASE ,URINE 1+ (NEGATIVE); NITRITE,URINE NEGATIVE (NEGATIVE); PH,URINE 6 (5-9); PROTEIN,URINE NEGATIVE (NEGATIVE); UROBILINOGEN,URINE NORMAL (NORMAL)
[2018-03-31 22:48] LABS: BACTERIA,URINE NEGATIVE /HPF; WBC,URINE 0-2 /HPF
[2018-03-31] MEDS ORDERED: IOHEXOL 350 MG/ML 100 ML (OMNIPAQUE 350) VIAL IV ONE (23:00)
[2018-03-31] MEDS ORDERED: NS 250 ML (IVPB) BAG IV ONE (23:00)
[2018-03-31] MEDS ORDERED: KCL 10 MEQ TAB (MICRO K) PO ONE ×2 (23:38→23:45)
[2018-03-31] MEDS ORDERED: cefTRIAXone FOR IV USE 1,000 MG in NS (IVPB) 50 ML IV ONE (23:45)
[2018-03-31 23:49] VITALS: BP 136/91
--- NOTE | 2018-04-01 07:28 | Diagnostic Imaging Report ---
PROCEDURE: CT chest, abdomen, and pelvis with contrast. TECHNIQUE: Multiple contiguous axial images were obtained through the chest, abdomen, and pelvis after the administration of intravenous contrast. INDICATION: Generalized malaise. Increased urination. COMPARISON: CT abdomen and pelvis of 12/19/2017. FINDINGS: CT CHEST: Visualized aspects of the thyroid are normal. No supraclavicular or axillary lymphadenopathy. No mediastinal, hilar or juxtaphrenic lymphadenopathy. Heart is normal in size without pericardial effusion. Normal caliber thoracic aorta. No pleural effusion or pneumothorax. No endoluminal nodule within the trachea. No pulmonary mass or consolidation. No concerning pulmonary nodules. No worrisome focal osseous lesions. CT ABDOMEN AND PELVIS: No free intraperitoneal air or fluid. Diffuse hypoattenuation liver is unchanged and indicative of hepatic steatosis. No focal hepatic lesion. Cholecystectomy. No biliary duct dilatation. The spleen and pancreas are normal. No adrenal mass. Kidneys enhance normally without mass, lesion or obstruction. Urinary bladder is moderately distended without wall thickening. Prostate is not enlarged. No pericolonic inflammatory changes or bowel obstruction. Stomach is partially distended with fluid and there is no wall thickening. Normal appendix. Normal caliber abdominal aorta. No abdominal or pelvic lymphadenopathy. No concerning focal osseous lesions. IMPRESSION: CHEST: 1. No acute cardiopulmonary process. ABDOMEN AND PELVIS: 1. No acute inflammatory or obstructive process in the abdomen or pelvis. Findings are in agreement with the preliminary report. Dictated by: Dictated on workstation # [id number]
== END 2018-03-31 23:50 | disposition home or self-care (01) ==
LOC: EDUNIT# 20:41 → ER 20:42
DX: R50.9 Fever, unspecified (principal); R94.5 Abnormal results of liver function studies; E87.6 Hypokalemia; R35.0 Frequency of micturition; J45.909 Unspecified asthma, uncomplicated; K21.9 Gastro-esophageal reflux disease without esophagitis; E66.9 Obesity, unspecified; F41.9 Anxiety disorder, unspecified; F32.9 Major depressive disorder, single episode, unspecified; F42.9 Obsessive-compulsive disorder, unspecified; Z87.440 Personal history of urinary (tract) infections; Z68.36 Body mass index [BMI] 36.0-36.9, adult
CPT/HCPCS: 36415; 51701; 71045; 71260; 74177; 80053; 81000; 83605; 85025; 86308; 87040; 96361; 96374

== ENCOUNTER 2018-04-10 14:12 | Emergency (ER) | payer MEDICARE, MEDICAID ==
[~2018-04-10] VITALS: Ht 167.6 cm; Wt 99.8 kg
[2018-04-10] MEDS ORDERED: NS IV 1000 ML 1,000 ML IV SCH (14:45)
[2018-04-10] MEDS ORDERED: IBUPROFEN 800 MG (MOTRIN) TAB PO ONE (14:45)
[2018-04-10] MEDS ORDERED: ACETAMINOPHEN 500 MG TAB (TYLENOL) PO ONE (14:45)
--- NOTE | 2018-04-10 14:48 | ED General ---
General Stated Complaint: NOT FEELING WELL Source of Information: Family Exam Limitations: No Limitations History of Present Illness Date Seen by Provider: Apr 10, 2018 Time Seen by Provider: 14:46 Initial Comments Nonverbal developmentally delayed gentleman brought to the emergency room by his father with reports of feeling unwell. Symptoms are very vague but father states that since 16 February patient has been incontinent of urine which is a new thing since February, he is also more reclusive staying in his bedroom more during the day, intermittent fevers since February and has refused to shower intermittently and generally requires more care. At that time he was admitted with a UTI and sepsis. Timing/Duration: Intermittent Severity: Moderate Associated Systoms: No Cough; Fever/Chills; No Nausea/Vomiting Allergies and Home Medications Allergies Coded Allergies: NKANo Known Allergies (Unverified Allergy, Mild, 09/22/09) Home Medications Clonazepam 0.5 Mg Tablet, 0.5 MG PO DAILY PRN for ANXIETY, (Reported) Lurasidone HCl 60 Mg Tablet, 60 MG PO DAILY, (Reported) Montelukast Sodium 10 Mg Tablet, 10 MG PO HS, (Reported) Omeprazole 20 Mg Capsule.dr, 20 MG PO DAILY, (Reported) Propranolol HCl 20 Mg Tablet, 20 MG PO BID, (Reported) Patient Home Medication List Home Medication List Reviewed: Yes Review of Systems Review of Systems Constitutional: see HPI EENTM: see HPI Respiratory: no symptoms reported Cardiovascular: no symptoms reported Genitourinary: see HPI, incontinence Musculoskeletal: no symptoms reported Skin: no symptoms reported Psychiatric/Neurological: No Symptoms Reported Hematologic/Lymphatic: No Symptoms Reported Immunological/Allergic: no symptoms reported Past Taqnvgc-Dlnhch-Phtffq Hx Patient Social History 2nd Hand Smoke Exposure: No Recent Foreign Travel: No Contact w/Someone Who Travel: No Recent Hopitalizations: Yes (UTI) Immunizations Up To Date Tetanus Booster (TDap): Unknown Date of Influenza Vaccine: Jun 02, 2012 Seasonal Allergies Seasonal Allergies: Yes Past Medical History Surgeries: Yes Gallbladder Respiratory: Yes Asthma Cardiac: No 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 6.0oz. 90.790121bp; 36.8 BMI Method:Estimated General Appearance: No Apparent Distress, WD/WN, Obese, Other (non verbal, ambulatory, no distress but tachy at 108 and temp of 100. ) HEENT: PERRL/EOMI, TMs Normal Neck: Full Range of Motion, Normal Inspection Respiratory: Normal Breath Sounds, No Accessory Muscle Use, No Respiratory Distress Cardiovascular: Normal Peripheral Pulses, Tachycardia Gastrointestinal: Normal Bowel Sounds, Non Tender, Soft Genital/Rectal: Other (patient was unable to urinate on command so I did do a straight catheter at the bedside obtaining 825 mL of dark yellow urine) Extremity: Normal Capillary Refill, Normal Inspection Neurologic/Psychiatric: Alert, Oriented x3 Skin: Normal Color, Warm/Dry Focused Exam Lactate Level 04/10/18 14:41: Lactic Acid Level 1.02 Lactic Acid Level Laboratory Tests Test 04/10/18 14:41 Lactic Acid Level 1.02 MMOL/L (0.50-2.00) Progress/Results/Core Measures Suspected Sepsis SIRS Temperature: Pulse: Respiratory Rate: Laboratory Tests 04/10/18 14:41: White Blood Count 8.1 Blood Pressure / Mean: 04/10/18 14:41: Lactic Acid Level 1.02 Laboratory Tests 04/10/18 14:41: Creatinine 1.05, Platelet Count 355, Total Bilirubin 0.8 Results/Orders Lab Results Laboratory Tests Test 04/10/18 14:37 04/10/18 14:41 Range/Units Urine Color YELLOW Urine Clarity CLEAR Urine pH 6.5 5-9 Urine Specific [place] 1.015 L 1.016-1.022 Urine Protein NEGATIVE NEGATIVE Urine Glucose (UA) NEGATIVE NEGATIVE Urine Ketones NEGATIVE NEGATIVE Urine Nitrite NEGATIVE NEGATIVE Urine Bilirubin NEGATIVE NEGATIVE Urine Urobilinogen NORMAL NORMAL MG/DL Urine Leukocyte Esterase NEGATIVE NEGATIVE Urine RBC (Auto) NEGATIVE NEGATIVE Urine RBC NONE /HPF Urine WBC RARE /HPF Urine Crystals NONE /LPF Urine Bacteria MODERATE H /HPF Urine Casts NONE /LPF Urine Mucus MODERATE H /LPF Urine Culture Indicated NO White Blood Count 8.1 4.3-11.0 10^3/uL Red Blood Count 5.17 4.35-5.85 10^6/uL Hemoglobin 14.9 13.3-17.7 G/DL Hematocrit 44 40-54 % Mean Corpuscular Volume 85 80-99 FL Mean Corpuscular Hemoglobin 29 25-34 PG Mean Corpuscular Hemoglobin Concent 34 32-36 G/DL Red Cell Distribution Width 12.4 10.0-14.5 % Platelet Count 355 130-400 10^3/uL Mean Platelet Volume 10.1 7.4-10.4 FL Neutrophils (%) (Auto) 69 42-75 % Lymphocytes (%) (Auto) 19 12-44 % Monocytes (%) (Auto) 9 0-12 % Eosinophils (%) (Auto) 3 0-10 % Basophils (%) (Auto) 1 0-10 % Neutrophils # (Auto) 5.6 1.8-7.8 X 10^3 Lymphocytes # (Auto) 1.5 1.0-4.0 X 10^3 Monocytes # (Auto) 0.7 0.0-1.0 X 10^3 Eosinophils # (Auto) 0.2 0.0-0.3 10^3/uL Basophils # (Auto) 0.1 0.0-0.1 10^3/uL Sodium Level 139 135-145 MMOL/L Potassium Level 3.4 L 3.6-5.0 MMOL/L Chloride Level 99 98-107 MMOL/L Carbon Dioxide Level 29 21-32 MMOL/L Anion Gap 11 5-14 MMOL/L Blood Urea Nitrogen 10 7-18 MG/DL Creatinine 1.05 0.60-1.30 MG/DL Estimat Glomerular Filtration Rate > 60 BUN/Creatinine Ratio 10 Glucose Level 148 H 70-105 MG/DL Lactic Acid Level 1.02 0.50-2.00 MMOL/L Calcium Level 9.8 8.5-10.1 MG/DL Corrected Calcium 9.6 8.5-10.1 MG/DL Total Bilirubin 0.8 0.1-1.0 MG/DL Aspartate Amino Transf (AST/SGOT) 48 H 5-34 U/L Alanine Aminotransferase (ALT/SGPT) 124 H 0-55 U/L Alkaline Phosphatase 47 40-136 U/L Total Protein 7.4 6.4-8.2 GM/DL Albumin 4.3 3.2-4.5 GM/DL Monoscreen NEGATIVE NEGATIVE My Orders Orders - ADALGISA MAHER APRN Ua Culture If Indicated (04/10/18 14:18) Cbc With Automated Diff (04/10/18 14:18) Comprehensive Metabolic Panel (04/10/18 14:18) Chest Pa/Lat (2 View) (04/10/18 14:18) Acetaminophen Tablet (Tylenol Tablet) (04/10/18 14:45) Ibuprofen Tablet (Motrin Tablet) (04/10/18 14:45) Ns Iv 1000 Ml (Sodium Chloride 0.9%) (04/10/18 14:45) Straight Cath (Urinary) (04/10/18 14:44) Blood Culture (04/10/18 15:24) Lactic Acid Analyzer (04/10/18 15:24) Tick Panel With Lyme Eia (04/10/18 15:24) Monotest (04/10/18 15:24) Medications Given in ED Current Medications Medications Dose Ordered Sig/Yudi Route Start Time Stop Time Status Last Admin Dose Admin Acetaminophen 1,000 mg ONCE ONCE PO 04/10/18 14:45 04/10/18 14:46 DC 04/10/18 15:02 1,000 MG Ibuprofen 800 mg ONCE ONCE PO 04/10/18 14:45 04/10/18 14:46 DC 04/10/18 15:02 800 MG Vital Signs/I&O 04/10/18 14:30 Temp 100.0 Pulse 108 Resp 18 B/P (MAP) 150/105 (120) Pulse Ox 96 O2 Delivery Room Air Capillary Refill : Departure Communication (Admissions) NAME: YOLY EVANS [facility] REC#: [id number] PT STATUS: REG ER : 1980 PHYSICIAN: ADALGISA MAHER APRN ADMIT DATE: 04/10/18/ER Draft Date of Exam:04/10/18 CHEST PA/LAT (2 VIEW) PATIENT HISTORY: Multiple infections. Altered mental status, not responding to questions or breathing instructions. TECHNIQUE: Two views of the chest. COMPARISON: 03/31/2018. FINDINGS: The lung volumes are low. No focal consolidation is seen. No large pleural effusion or pneumothorax is seen. The cardiomediastinal silhouette is normal in size and contour. No acute osseous abnormality is seen. IMPRESSION: Low lung volumes with no acute pulmonary abnormality seen. Dictated on workstation # [id number] Dict: 04/10/18 1500 Trans: 04/10/18 1505 [facility] [id number] Interpreted by: RODRIGUEZ RAHMAN MD Electronically signed by: Impression Primary Impression: General medical exam Disposition: HOME, SELF-CARE Condition: Stable Departure-Patient Inst. Decision time for Depature: 15:54 Referrals: JOAO KULKARNI MD (PCP/Family) Primary Care Physician Patient Instructions: General (DC) Add. Discharge Instructions: 1. Return to ER for any concerns 2. Follow-up with his doctor next week 3. Copy Copies To 1: JOAO KULKARNI MD, PETER J HEMATOLOGY SPECIALIST Apr 10, 2018 14:48
[2018-04-10 14:53] LABS: BILIRUBIN,URINE NEGATIVE (NEGATIVE); CLARITY,URINE CLEAR; COLOR,URINE YELLOW; GLUCOSE, URINE (UA) NEGATIVE (NEGATIVE); KETONES,URINE NEGATIVE (NEGATIVE); LEUKOCYTE ESTERASE ,URINE NEGATIVE (NEGATIVE); NITRITE,URINE NEGATIVE (NEGATIVE); PH,URINE 6.5 (5-9); PROTEIN,URINE NEGATIVE (NEGATIVE); UROBILINOGEN,URINE NORMAL (NORMAL)
[2018-04-10 14:53] LABS: BASOPHILS # (AUTO) 0.1 10^3/uL (0.0-0.1); BASOPHILS % (AUTO) 1 % (0-10); EOSINOPHILS # (AUTO) 0.2 10^3/uL (0.0-0.3); EOSINOPHILS % (AUTO) 3 % (0-10); HEMATOCRIT 44 % (40-54); HEMOGLOBIN 14.9 G/DL (13.3-17.7); LYMPHOCYTES # (AUTO) 1.5 X 10^3 (1.0-4.0); LYMPHOCYTES % (AUTO) 19 % (12-44); MEAN CORPUSCULAR HEMOGLOBIN 29 PG (25-34); MEAN CORPUSCULAR HGB CONC 34 G/DL (32-36); MEAN CORPUSCULAR VOLUME 85 FL (80-99); MEAN PLATELET VOLUME 10.1 FL (7.4-10.4); MONOCYTES # (AUTO) 0.7 X 10^3 (0.0-1.0); MONOCYTES % (AUTO) 9 % (0-12); NEUTROPHILS # (AUTO) 5.6 X 10^3 (1.8-7.8); NEUTROPHILS % (AUTO) 69 % (42-75); PLATELET COUNT 355 10^3/uL (130-400); RED BLOOD COUNT 5.17 10^6/uL (4.35-5.85); RED CELL DISTRIBUTION WIDTH 12.4 % (10.0-14.5); WHITE BLOOD COUNT 8.1 10^3/uL (4.3-11.0)
--- NOTE | 2018-04-10 15:06 | Diagnostic Imaging Report ---
PATIENT HISTORY: Multiple infections. Altered mental status, not responding to questions or breathing instructions. TECHNIQUE: Two views of the chest. COMPARISON: 03/31/2018. FINDINGS: The lung volumes are low. No focal consolidation is seen. No large pleural effusion or pneumothorax is seen. The cardiomediastinal silhouette is normal in size and contour. No acute osseous abnormality is seen. IMPRESSION: Low lung volumes with no acute pulmonary abnormality seen. Dictated by: Dictated on workstation # [id number]
[2018-04-10 15:12] LABS: ALANINE AMINOTRANSFERASE 124 U/L (0-55); ALBUMIN 4.3 GM/DL (3.2-4.5); ALKALINE PHOSPHATASE 47 U/L (40-136); BILIRUBIN,TOTAL 0.8 MG/DL (0.1-1.0); BUN/CREATININE RATIO 10; CALCIUM 9.8 MG/DL (8.5-10.1); CARBON DIOXIDE 29 MMOL/L (21-32); CHLORIDE 99 MMOL/L (98-107); CREATININE SERUM 1.05 MG/DL (0.60-1.30); GFR ESTIMATED > 60; GLUCOSE 148 MG/DL (70-105); POTASSIUM 3.4 MMOL/L (3.6-5.0); SODIUM 139 MMOL/L (135-145); TOTAL PROTEIN 7.4 GM/DL (6.4-8.2)
[2018-04-10 15:22] LABS: BACTERIA,URINE MODERATE /HPF; WBC,URINE RARE /HPF
[2018-04-10 16:15] VITALS: BP 150/100
--- OUTSIDE RECORDS SUMMARY | 2018-04-10 16:24 | XMS REPORT ---
Author Author MONIE FONG Organization [facility] Address [address] [place] [address] Care Team Providers Care Geophysical Prospecting Surveyor Name Role Phone MONIE FONG Unavailable PROBLEMS Type Condition ICD9-CM Code PSW55-BY Code Onset Dates Condition Status SNOMED Code Problem Encounter for long-term (current) use of other medications V58.69 Active 302504204 Problem Major depressive disorder, recurrent episode, mild 296.31 Active 12086598 Problem Wheezing 786.07 Active 10759676 Problem Obsessive compulsive disorder F42 Active 752922439 Problem Unspecified otalgia 388.70 Active 25346463 Problem Major depression, recurrent F33.9 Active 23689909 Problem Morbid (severe) obesity due to excess calories E66.01 Active 02046125603751 Problem Major depressive disorder, recurrent episode, in partial remission F33.41 Active 25910076 Problem Altered mental status, unspecified altered mental status type R41.82 Active 388808612 Problem Coarse tremors G25.2 Active 49562866 Problem Moderate mental retardation 318.0 Active 70914179 Problem Dysfunction of Eustachian tube 381.81 Active 34668019 Problem Acute suppurative otitis media without spontaneous rupture of eardrum 382.00 Active 90716425 Problem Hyperlipidemia, unspecified hyperlipidemia type E78.5 Active 28536506 Problem Body mass index (BMI) of 40.0-44.9 in adult Z68.41 Active 564133446 Problem Essential tremor G25.0 Active 717671209 Problem MR (mental retardation) F79 Active 802864768 Problem Obsessive-compulsive disorders 300.3 Active 807622875 Problem Generalized anxiety disorder 300.02 Active 47150337 Problem Mild mental retardation 317 Active 61021515 Problem Depressive disorder, not elsewhere classified 311 Active 04734043 Problem Unspecified episodic mood disorder 296.90 Active 914567109 Problem Major depressive disorder, recurrent episode, moderate 296.32 Active 57780372 Problem Anxiety state, unspecified 300.00 Active 711579529 Problem Unspecified psychosis 298.9 Active 72643136 ALLERGIES No Known Allergies ENCOUNTERS Encounter Location Date Diagnosis [facility] [address] [address] Apr, [facility] [address] [address] Apr, [facility] [address] [address] Mar, Altered mental status, unspecified altered mental status type R41.82 ; Tachycardia R00.0 ; Acute cystitis without hematuria N30.00 and Bacteremia R78.81 [facility] [address] [address] Mar, [facility] [address] [address] Mar, [facility] [address] [address] Feb, [facility] [address] [address] Feb, Dysuria R30.0 [facility] [address] [address]- [address] Feb, Dysuria R30.0 ; Acute cystitis without hematuria N30.00 and Tachycardia R00.0 [facility] [id number] [place] [address] Feb, Coarse tremors G25.2 and BMI 45.0-49.9, adult Z68.42 [facility] [id number] [place] [address]48- 0872 Jan, [facility] [address] [address] Jan, Major depressive disorder, recurrent episode, in partial remission F33.41 [facility] [address] [address]- [address] Dec, Hyperglycemia R73.9 ; Hyperlipidemia, unspecified hyperlipidemia type E78.5 ; Body mass index (BMI) of 40.0-44.9 in adult Z68.41 and MR (mental retardation) F79 [facility] [id number] [place] [address] 85[address]- 9757 November, Major depressive disorder, recurrent episode, in partial remission F33.41 ; Mental retardation F79 ; Obsessive compulsive disorder F42 and BMI 50.0-59.9, adult Z68.43 [facility] [facility] [id number] [place] [address]- 4936 Oct, [facility] [address] [address] Jul, Acute nasopharyngitis J00 and Vomiting, intractability of vomiting not specified, presence of nausea not specified, unspecified vomiting type R11.10 [place] [address] [address]- [address] 09 Jul, 2017 BMI 45.0-49.9, adult Z68.42 ; Major depressive disorder, recurrent episode, in partial remission F33.41 ; Mental retardation F79 and Obsessive compulsive disorder F42 [place] [facility] [id number] [place] [address] 87483- 2207 Jul, High risk medication use Z79.899 [facility] [facility] [id number] [place] [address] 99972- 2441 Jun, Morbid (severe) obesity due to excess calories E66.01 ; Body mass index (BMI) of 40.0-44.9 in adult Z68.41 ; Mental retardation F79 ; Elevated blood pressure reading R03.0 ; Screening for diabetes mellitus (DM) Z13.1 and Screening for lipid disorders Z13.220 [facility] [facility] [id number] [place] [address] 8[address]- 5305 13 May, 2017 High risk medication use Z79.899 ; Major depressive disorder , recurrent episode, in partial remission F33.41 ; Mental retardation F79 and Obsessive compulsive disorder F42 [facility] [address] [address] 117[address] May, [facility] [address] [address] 6[address] Apr, [facility] [id number] [id number] Mar, [facility] [id number] [place] [address] 94795- 9017 Jan, Major depression, recurrent F33.9 ; Mental retardation F79 and Obsessive compulsive disorder F42 [facility] [id number] [place] [address]28- 7568 November, Major depression, recurrent F33.9 and Obsessive compulsive disorder F42 [facility] [address] [address]- [address] Sep, [facility] [id number] [place] [address]78- 2813 Jun, Obsessive compulsive disorder F42 ; Mental retardation F79 and Major depressive disorder, recurrent episode, in partial remission F33.41 [facility] [address] [place] [address] 19870- 9216 Apr, [facility] [address] [place] [address] 27837- 2079 Apr, Major depression, recurrent F33.9 ; Obsessive compulsive disorder F42 and Mental retardation F79 [facility] [address] [address]- 7[address] Jan, [facility] [address] [place] [address]30- 6036 Jan, Major depression, recurrent F33.9 ; Obsessive compulsive disorder F42 and Mental retardation F79 [facility] [address] [address] 7679 Dec, [facility] [address] [id number] [address] 69[address] 13 Nov, 2015 [facility] [address] [address]- 9085 November, [facility] [id number] [address] Oct, [facility] [id number] [address] Oct, Obsessive compulsive disorder F42 ; Major depression, recurrent F33.9 and Mental retardation F79 [facility] [address] [address]- 0180 Sep, [facility] [id number] [place] [address]81- 2771 17 Aug, 2015 [facility] [address] [id number] [address]- 2963 Aug, [facility] [id number] [address]- 9194 Aug, [facility] [address] [address]- 4707 Jul, [facility] [address] [address]- 5610 Jul, [facility] [address] [address]- 9092 Jul, [facility] [address] [address]- 8477 Jun, Obsessive compulsive disorder F42 ; Major depression, recurrent F33.9 and Mental retardation F79 [facility] [address] 9[address] Jun, [facility] [address] [address]- 5157 Jun, [facility] [address] [address]- 5199 17 May, 2015 [facility] [address] [facility] [id number] [address]- 9962 15 Apr, 2015 [facility] [id number] [address] 30 Mar, 2015 Generalized anxiety disorder 300.02 and Major depressive disorder, recurrent episode, mild 296.31 [facility] [id number] [address] 6963 14 Mar, 2015 [facility] [id number] [address]- 8872 13 Feb, 2015 [facility] [id number] [place] [address] 61568- 0270 13 Jan, 2015 [facility] [id number] [address]- 5831 10 Dec, 2014 Generalized anxiety disorder 300.02 and Depressive disorder , not elsewhere classified 311 [facility] [address] [address]- 0365 14 Oct, 2014 [facility] [address] [address]- 3881 13 Oct, 2014 [facility] [address] [address]- 0714 11 Sep, 2014 [facility] [address] [address]- 7953 Sep, [facility] [address], [place] [address]- 9451 Jun, [facility] [address], [place] [address]- 8468 Jun, [facility] [address] [address] May, [facility] [address], [place] [address]- 7984 18 May, 2014 [facility] [id number] [place] [address]- 3406 May, [facility] [place] [facility] [address] [id number] [place] [address]- 2718 Apr, [facility] [place] [facility] [address] [id number] [place] [address]- 9809 Apr, [facility] [place] [facility] [address] [id number] [place] [address]- 1932 Feb, [facility] [place] [facility] [address] [id number] [place] [address]- 1545 Jan, [facility] [place] [facility] [address] [id number] [place] [address]- 4013 Jan, [facility] [place] [facility] [address] [id number] [place] [address]- 7968 Dec, [facility] [place] [facility] [address] [id number] [place] [address]- 1379 Dec, [facility] [place] [facility] [address] [id number] [place] [address]- 7967 Oct, [facility] [place] [facility] [address] [id number] [place] [address]- 4649 Oct, [facility] [place] [facility] [address] [id number] [place] [address]- 2327 Oct, [facility] [place] [facility] [address] [id number] [place] [address]- 8662 Oct, [facility] [place] [facility] [address] [id number] [place] [address]- 8116 Sep, [facility] [place] [facility] [address] [id number] [place] [address]- 3391 Sep, [facility] [place] [facility] [address] [id number] [place] [address]- 7811 Sep, [facility] [place] [facility] [address] [id number] [place] [address]50 Sep, [facility] [place] [facility] [address] [id number] [place] [address]- 3915 Aug, [facility] [place] [facility] [address] [id number] [place] [address]- 2562 Aug, [facility] [place] [facility] [address] [id number] [place] [address]- 9762 Aug, [facility] [place] [facility] [address] [id number] [place] [address]- 3919 Aug, [facility] [place] [facility] [address] [id number] [place] [address]- 5054 Jul, [facility] [place] [facility] [address] [id number] [place] [address]- 2933 Jul, [facility] [place] [facility] [address] [id number] [place] [address]- 4566 Jul, [facility] [place] [facility] [address] [id number] [place] [address]- 2894 Jul, [facility] [place] [facility] [address] [id number] [place] [address]- 5174 Jul, [facility] [place] [facility] [address] [id number] [place] [address]- 5021 Jul, [facility] [place] [facility] [address] [id number], [place] [address]- 1848 Apr, [facility] [place] [facility] [address] [id number], [place] [address]- 5527 Apr, [facility] [place] [facility] [address] [id number] [place] [address]- 0369 Apr, [facility] [place] [facility] [address] [id number] [place] [address]- 6902 Apr, [facility] [place] [facility] [address] [id number], [place] [address]- 9767 Apr, [facility] [place] [facility] [address] [id number], [place] [address]- 3066 21 Apr, 2012 [facility] [place] [facility] [address] [id number] [place] [address]- 7625 18 Apr, 2012 [facility] [place] [facility] [address] [id number] [place] [address]- 5206 18 Apr, 2012 [facility] [place] [facility] [address] [id number] [place] [address]- 8582 17 Apr, 2012 [facility] [place] [facility] [address] [id number] [place] [address]- 2986 17 Apr, 2012 [facility] [place] [facility] [address] [id number] [place] [address]- 5631 16 Apr, 2012 [facility] [place] [facility] [address] [id number] [place] [address]- 1237 16 Apr, 2012 [facility] [place] [facility] [address] [id number] [place] [address]- 8673 16 Apr, 2012 [facility] [place] [facility] [address] [id number] [place] [address]- 2357 16 Apr, 2013 [facility] [place] [facility] [address] [id number] [place] [address]- 9273 18 Mar, 2013 [facility] [place] [facility] [address] [id number] [place] [address]- 2717 17 Mar, 2012 [facility] [place] [facility] [address] [id number] [place] [address]- 3773 16 Mar, 2012 [facility] [place] [facility] [address] [id number], [place] [address]- 3377 13 Mar, 2013 [facility] [place] [facility] [address] [id number] [place] [address]- 5809 Feb, [facility] [place] [facility] [address] [id number] [place] [address]- 2909 Feb, [facility] [place] [facility] [address] [id number] [place] [address]- 7887 Jan, [facility] [place] [facility] [address] [id number] [place] [address]- 8713 Jan, [facility] [place] [facility] [address] [id number] [place] [address]- 8591 Jan, [facility] [place] [facility] [address] [id number] [place] [address]- 7106 Jan, [facility] [place] [facility] [address] [id number] [place] [address]- 9274 Jan, [facility] [place] [facility] [address] [id number] [place] [address]- 9113 Jan, [facility] [place] [facility] [address] [id number] [place] [address]- 9235 Jan, [facility] [place] [facility] [address] [id number] [place] [address]- 2515 Jan, [facility] [place] [facility] [address] [id number] [place] [address]- 7182 Dec, [facility] [place] [facility] [address] [id number] [place] [address]- 0830 Dec, [facility] [place] [facility] [address] [id number] [place] [address]- 1958 Dec, [facility] [place] [facility] [address] [id number] [place] [address]- 7565 Dec, [facility] [place] [facility] [address] [id number] [place] [address]- 0603 Dec, [facility] [place] [facility] [address] [id number] [place] [address]- 5787 Dec, [facility] [place] [facility] [address] [id number] [place] [address]- 9258 Dec, [facility] [place] [facility] [address] [id number] [place] [address]- 3839 Dec, [facility] [place] [facility] [address] [id number] [place] [address]- 5484 Dec, [facility] [address] [id number] [place] [address]- 6955 November, [facility] [address] [id number] [place] [address]- 6961 Oct, [facility] [place] [facility] [address] [id number] [place] [address]- 6344 Oct, [facility] [place] [facility] [address] [id number] [place] [address]- 4941 Oct, [facility] [address] [id number] [place] [address]- 8320 Oct, [facility] [address] [id number] [place] [address]- 1369 Oct, [facility] [address] [id number] [place] [address]- 0617 Oct, [facility] [place] [facility] [address] [id number] [place] [address]- 6417 Aug, [facility] [place] [facility] [address] [id number] [place] [address]- 2943 Aug, [facility] [place] [facility] [address] [id number] [place] [address]- 6930 Jul, [facility] [place] [facility] [address] [id number] [place] [address]- 5707 Jul, [facility] [place] [facility] [address] [id number] [place] [address]- 3728 Jul, [facility] [place] [facility] [address] [id number] [place] [address]- 0381 Jul, [facility] [place] [facility] [address] [id number] [place] [address]- 1593 Jul, [facility] [place] [facility] [address] [id number] [place] [address]- 4771 Jul, [facility] [place] [facility] [address] [id number] [place] [address]- 6367 Jul, [facility] [place] [facility] [address] [id number] [place]69 Jun, [facility] [place] [facility] [address] [id number] [place] [address]- 1499 Jun, [facility] [place] [facility] [address] [id number] [place] 7311 Jun, [facility] [place] [facility] [address] [id number] [place] [address]- 1700 Jun, [facility] [place] [facility] [address] [id number] [place] 3817 Jun, [facility] [place] [facility] [address] [id number] [place] [address]- 1155 Apr, [facility] [place] [facility] [address] [id number] [place] [address]- 3057 Apr, [facility] [place] [facility] [address] [id number] [place] [address]- 6148 Apr, [facility] [place] [facility] [address] [id number] [place] [address]- 9024 Mar, [facility] [place] [facility] [address] [id number] [place] [address]- 3216 Feb, [facility] [place] [facility] [address] [id number] [place] [address]- 4521 Jan, [facility] [place] [facility] [address] [id number] [place] [address]- 3020 Jan, [facility] [place] [facility] [address] [id number] [place] [address]- 9576 Dec, [facility] [place] [facility] [address] [id number] [place] [address]- 3932 November, [facility] [place] [facility] [address] [id number] [place] [address]- 5733 Oct, [facility] [id number] [address]- 8632 Sep, [facility] [address], [place] [address]- 1146 Sep, [facility] [address], [place] [address]- 8128 Aug, [facility] [address], [place] [address]- 7456 Aug, [facility] [address], [place] [address]- 9427 Aug, [facility] [address], [place] [address]- 8026 Jul, [facility] [address], [place] [address]- 8885 Jul, [facility] [address], [place] [address]- 5873 Jun, [facility] [address], [place] [address]- 7332 Jun, [facility] [address], [place] [address]- 3091 May, [facility] [address], [place] [address]- 0657 Apr, [facility] [id number] [address]- 5206 Apr, IMMUNIZATIONS No Known Immunizations SOCIAL HISTORY Never Assessed REASON FOR VISIT Shaking getting worse JStrasserRN PLAN OF CARE Activity Details Follow Up w/ Dr. Patel, PCP Reason:ER f/u VITAL SIGNS Height 65 in 2018-02-17 Weight 290.0 lbs 2018-02-17 Temperature 98.4 degrees Fahrenheit 2018-02-17 Heart Rate 138 bpm 2018-02-17 Respiratory Rate 22 2018-02-17 BMI 48.25 kg/m2 2018-02-17 Blood pressure systolic 150 mmHg 2018-02-17 Blood pressure diastolic 106 mmHg 2018-02-17 MEDICATIONS Medication Instructions Dosage Frequency Start Date End Date Duration Status propranolol 20 mg 1 Tablet by Oral route 2 times per day Dec, Active Clonazepam 0.5 MG Orally as needed Once a day 1 tablet 24h Sep, 30 days Active Latuda 60 MG Orally Once a day 1 tablet with food 24h 30 days Active Wellbutrin XL 150 MG Orally Once a day 1 tablet in the morning 24h November, 30 days Active Singulair 10MG Orally Once a day 1 tablet in the evening 24h Active Omeprazole 20MG Orally Once a day 1 capsule 24h Active RESULTS No Results PROCEDURES Procedure Date Ordered Result Body Site EKG, TRACING (IN-HOUSE) 2018-02-17 N/A ELECTROCARDIOGRAM, TRACING Feb 17, 2018 [facility] VISIT ESTABLISHED PATIENT Feb 17, 2018 INSTRUCTIONS MEDICATIONS ADMINISTERED No Known Medications MEDICAL (GENERAL) HISTORY Type Description Date Medical History GERD Surgical History cholecystectomy 2013 Hospitalization History ED [place]- Chest Pain 08/26/2017 Hospitalization History Hospital, UTI/Septic 02/20/18
--- OUTSIDE RECORDS SUMMARY | 2018-04-10 16:24 | XMS REPORT ---
Author Author JOAO KULKARNI [facility] Address [address] [place] [address] Care Team Providers Care Evening Sitter Name Role Phone JOAO KULKARNI Unavailable PROBLEMS Type Condition ICD9-CM Code CEX97-FA Code Onset Dates Condition Status SNOMED Code Problem Encounter for long-term (current) use of other medications V58.69 Active 619874192 Problem Major depressive disorder, recurrent episode, mild 296.31 Active 96591400 Problem Wheezing 786.07 Active 04997255 Problem Obsessive compulsive disorder F42 Active 632999656 Problem Unspecified otalgia 388.70 Active 34044601 Problem Major depression, recurrent F33.9 Active 93919237 Problem Morbid (severe) obesity due to excess calories E66.01 Active [id number] Problem Major depressive disorder, recurrent episode, in partial remission F33.41 Active 62820193 Problem Altered mental status, unspecified altered mental status type R41.82 Active 127024468 Problem Coarse tremors G25.2 Active 19452112 Problem Moderate mental retardation 318.0 Active 24572160 Problem Dysfunction of Eustachian tube 381.81 Active 49029636 Problem Acute suppurative otitis media without spontaneous rupture of eardrum 382.00 Active 98248072 Problem Hyperlipidemia, unspecified hyperlipidemia type E78.5 Active 88248506 Problem Body mass index (BMI) of 40.0-44.9 in adult Z68.41 Active 826831910 Problem Essential tremor G25.0 Active 701752062 Problem MR (mental retardation) F79 Active 212250780 Problem Obsessive-compulsive disorders 300.3 Active 053814340 Problem Generalized anxiety disorder 300.02 Active 62631645 Problem Mild mental retardation 317 Active 47942812 Problem Depressive disorder, not elsewhere classified 311 Active 89809504 Problem Unspecified episodic mood disorder 296.90 Active 444107393 Problem Major depressive disorder, recurrent episode, moderate 296.32 Active 75836117 Problem Anxiety state, unspecified 300.00 Active 872033156 Problem Unspecified psychosis 298.9 Active 64855661 ALLERGIES No Information ENCOUNTERS Encounter Location Date Diagnosis [facility] [id number] [place] [address] 90007- 4367 Apr, [facility] [id number] [place] [address] 01087- 9546 Apr, [facility] [address] [address]- [address] Mar, Altered mental status, unspecified altered mental status type R41.82 ; Tachycardia R00.0 ; Acute cystitis without hematuria N30.00 and Bacteremia R78.81 [facility] [address] [address]- [address] Mar, [facility] [address] 7[address]- 8243 Mar, [facility] [address] 28242- 9036 Feb, [facility] [id number] [place] [address] 76370- 5351 Feb, Dysuria R30.0 [facility] [id number] [place] [address] 57373- 2643 Feb, Dysuria R30.0 ; Acute cystitis without hematuria N30.00 and Tachycardia R00.0 [facility] [id number] [place] [address] 24596 -2426 Feb, Coarse tremors G25.2 and BMI 45.0-49.9, adult Z68.42 [facility] [id number] [place] [address] 43530- 2217 Jan, [facility] [id number] [place] [address] 66671- 3065 Jan, Major depressive disorder, recurrent episode, in partial remission F33.41 [facility] [id number] [place] [address] 85889- 1053 Dec, Hyperglycemia R73.9 ; Hyperlipidemia, unspecified hyperlipidemia type E78.5 ; Body mass index (BMI) of 40.0-44.9 in adult Z68.41 and MR (mental retardation) F79 [facility] [id number] [place] [address] 91140- 3833 November, Major depressive disorder, recurrent episode, in partial remission F33.41 ; Mental retardation F79 ; Obsessive compulsive disorder F42 and BMI 50.0-59.9, adult Z68.43 [facility] [id number] [place] [address] 10059- 3430 Oct, [facility] [address] 67[address] -[address]21 Jul, Acute nasopharyngitis J00 and Vomiting, intractability of vomiting not specified, presence of nausea not specified, unspecified vomiting type R11.10 [facility] [address] [address]00- 6964 09 Jul, 2017 BMI 45.0-49.9, adult Z68.42 ; Major depressive disorder, recurrent episode, in partial remission F33.41 ; Mental retardation F79 and Obsessive compulsive disorder F42 [facility] [id number] [place] [address] 96278- 1900 Jul, High risk medication use Z79.899 [place] [address] 18045- 9131 Jun, Morbid (severe) obesity due to excess calories E66.01 ; Body mass index (BMI) of 40.0-44.9 in adult Z68.41 ; Mental retardation F79 ; Elevated blood pressure reading R03.0 ; Screening for diabetes mellitus (DM) Z13.1 and Screening for lipid disorders Z13.220 [facility] [id number] [place] [address] 70416- 9427 May, High risk medication use Z79.899 ; Major depressive disorder , recurrent episode, in partial remission F33.41 ; Mental retardation F79 and Obsessive compulsive disorder F42 [facility] [id number] [address] 8691 May, [facility] [address] [address] 6079 Apr, [facility] [address] [facility] [id number] [id number] Mar, [facility] [address] [address]- 9393 Jan, Major depression, recurrent F33.9 ; Mental retardation F79 and Obsessive compulsive disorder F42 [facility] [address] [place] [address] 21180- 8928 November, Major depression, recurrent F33.9 and Obsessive compulsive disorder F42 [facility] [address] [address]- 0428 Sep, [facility] [id number] [place] [address] 81645- 4120 Jun, Obsessive compulsive disorder F42 ; Mental retardation F79 and Major depressive disorder, recurrent episode, in partial remission F33.41 [facility] [address], [place] [address]- 6690 Apr, [facility] [address], [place] [address]- 0135 Apr, Major depression, recurrent F33.9 ; Obsessive compulsive disorder F42 and Mental retardation F79 [facility] [address], [place] [address] 1953 Jan, [facility] [address] [place] [address] 60262- 9109 Jan, Major depression, recurrent F33.9 ; Obsessive compulsive disorder F42 and Mental retardation F79 [facility] [address] [address]- 2742 Dec, [facility] [id number] [place] [address] 33070- 0713 November, [facility] [address], [place] [address]- 1770 November, [facility] [address] [address]- 0745 Oct, [facility] [address], [place] [address]- 5244 Oct, Obsessive compulsive disorder F42 ; Major depression, recurrent F33.9 and Mental retardation F79 [facility] [address], [place] [address]- 8643 Sep, [facility] [id number] [place] [address] 62222- 9648 17 Aug, 2015 [facility] [id number] [place] [address] 77712- 5723 Aug, [facility] [id number] [place] [address] 43657- 7313 Aug, [facility] [address], [place] [address]- 7422 Jul, [facility] [address], [place] [address]- 9114 Jul, [facility] [address], [place] [address]- 9400 Jul, [facility] [address], [place] [address]- 5525 Jun, Obsessive compulsive disorder F42 ; Major depression, recurrent F33.9 and Mental retardation F79 [facility] [address] 5653 Jun, [facility] [address], [place] [address]- 7203 Jun, [facility] [address], [place] [address]- 1955 May, [facility] [id number], [place] [address]- 2618 15 Apr, 2015 [facility] [id number] [place] [address] 008298- 4442 30 Mar, 2015 Generalized anxiety disorder 300.02 and Major depressive disorder, recurrent episode, mild 296.31 [facility] [id number] [place] [address] 92133- 0995 14 Mar, 2015 [facility] [id number] [place] [address] 08401- 2327 13 Feb, 2015 [facility] [id number] [place] [address] 14718- 7853 13 Jan, 2015 [facility] [id number] [place] [address] 58161- 6601 10 Dec, 2014 Generalized anxiety disorder 300.02 and Depressive disorder , not elsewhere classified 311 [facility] [address], [place] [address]- 1269 14 Oct, 2014 [facility] [address], [place] [address]- 8213 13 Oct, 2014 [facility] [id number] [place] [address] 19764- 0855 11 Sep, 2014 [facility] [address], [place] [address]- 6427 Sep, [facility] [address], [place] [address]- 8945 Jun, [facility] [address], [place] [address]- 4544 Jun, [facility] [address], [place] [address]- 2800 May, [facility] [address], [place] [address]- 5694 18 May, 2014 [facility] [id number] [place] [address] 24624- 6182 May, [facility] [place] [facility] [address] [id number] [place] [address]- 4923 Apr, [facility] [place] [facility] [address] [id number] [place] [address]- 6064 Apr, [facility] [place] [facility] [address] [facility] [id number] [place] [address]- 2949 Feb, [facility] [place] [facility] [address] [id number] [place] [address]- 1067 Jan, [facility] [place] [facility] [address] [id number] [place] [address]- 5296 Jan, [facility] [place] [facility] [address] [id number] [place] [address]- 8971 Dec, [facility] [place] [facility] [address] [id number] [place] [address]- 3474 Dec, [facility] [place] [facility] [address] [id number] [place] [address]- 8948 Oct, [facility] [place] [facility] [address] [id number] [place] [address]- 9749 Oct, [facility] [place] [facility] [address] [facility] [id number] [place] [address]- 2640 Oct, [facility] [place] [facility] [address] [id number] [place] [address]- 0851 Oct, [facility] [place] [facility] [address] [id number], [place] [address]- 1010 Sep, [facility] [place] [facility] [address] [id number] [place] [address]- 9403 Sep, [facility] [place] [facility] [address] [id number] [place] [address]- 4846 Sep, [facility] [place] [facility] [address] [facility] [id number] [place] [address]- 1794 Sep, [facility] [place] [facility] [address] [id number] [place] [address]- 3729 Aug, [facility] [place] [facility] [address] [id number] [place] [address]- 6518 Aug, [facility] [place] [facility] [address] [id number] [place] [address]- 4134 Aug, [facility] [place] [facility] [address] [id number] [place] [address]- 2189 Aug, [facility] [place] [facility] [address] [id number] [place] [address]- 0834 Jul, [facility] [place] [facility] [address] [id number] [place] [address]- 5785 Jul, [facility] [place] [facility] [address] [id number] [place] [address]- 1232 Jul, [facility] [place] [facility] [address] [id number] [place] [address]- 8652 Jul, [facility] [place] [facility] [address] [id number] [place] [address]- 5427 Jul, [facility] [place] [facility] [address] [id number] [place] [address]- 4732 Jul, [facility] [place] [facility] [address] [id number] [place] [address]- 2978 Apr, [facility] [place] [facility] [address] [id number] [place] [address]- 6525 Apr, [facility] [place] [facility] [address] [id number] [place] [address]- 9034 Apr, [facility] [place] [facility] [address] [id number] [place] [address]- 7402 Apr, [facility] [place] [facility] [address] [id number] [place] [address]- 0370 Apr, [facility] [place] [facility] [address] [id number] [place] [address]- 3792 21 Apr, 2013 [facility] [place] [facility] [address] [id number] [place] [address]- 0675 18 Apr, 2012 [facility] [place] [facility] [address] [id number] [place] [address]- 9502 18 Apr, 2013 [facility] [place] [facility] [address] [id number] [place] [address]- 8336 17 Apr, 2012 [facility] [place] [facility] [address] [id number] [place] 9283 17 Apr, 2012 [facility] [place] [facility] [address] [id number] [place] [address]- 0407 16 Apr, 2012 [facility] [place] [facility] [address] [id number] [place] [address]- 2259 16 Apr, 2012 [facility] [place] [facility] [address] [id number] [place] [address]- 3828 16 Apr, 2013 [facility] [place] [facility] [address] [id number] [place] [address]- 4103 16 Apr, 2013 [facility] [place] [facility] [address] [id number] [place] [address]- 4753 18 Mar, 2013 [facility] [place] [facility] [address] [id number] [place] [address]- 2219 17 Mar, 2013 [facility] [place] [facility] [address] [id number] [place] [address]- 9115 16 Mar, 2012 [facility] [place] [facility] [address] [id number] [place] [address]- 1174 13 Mar, 2013 [facility] [place] [facility] [address] [id number] [place] 1882 Feb, [facility] [place] [facility] [address] [id number] [place] [address]- 0379 Feb, [facility] [place] [facility] [address] [id number] [place] [address]- 9539 Jan, [facility] [place] [facility] [address] [id number] [place] [address]- 6518 Jan, [facility] [address] [id number] [place] [address]- 2838 Jan, [facility] [place] [facility] [address] [id number] [place] [address]- 8091 Jan, [facility] [address] [id number] [place] [address]- 8829 Jan, [facility] [address] [id number] [place] [address]- 5029 Jan, [facility] [address] [id number] [place] [address]- 8715 Jan, [facility] [address] [id number] [place] [address]- 0665 Jan, [facility] [address] [id number] [place] [address]- 3486 Dec, [facility] [address] [id number] [place] [address]- 3937 Dec, [facility] [place] [facility] [address] [id number] [place] [address]- 7133 Dec, [facility] [address] [id number] [place] [address]- 3067 Dec, [facility] [place] [facility] [address] [id number] [place] [address]- 1189 Dec, [facility] [address] [id number] [place] [address]- 2880 Dec, [facility] [place] [facility] [address] [id number] [place] [address]- 0722 Dec, [facility] [place] [facility] [address] [id number] [place] [address]- 6682 Dec, [facility] [place] [facility] [address] [id number] [place] [address]- 3261 Dec, [facility] [address] [id number] [place] [address]- 1060 November, [facility] [address] [id number] [place] [address]- 2516 Oct, [facility] [address] [id number] [place] [address]- 6065 Oct, [facility] [address] [id number] [place] [address]- 1495 Oct, [facility] [address] [id number] [place] [address]- 3606 Oct, [facility] [address] [id number] [place] [address]- 5551 Oct, [facility] [address] [id number] [place] [address]- 8850 Oct, [facility] [address] [id number] [place] [address]- 6254 Aug, [facility] [address] [id number] [place] [address]- 8891 Aug, [facility] [address] [id number] [place] [address]- 6759 Jul, [facility] [address] [id number] [place] [address]- 4256 Jul, [facility] [place] [facility] [address] [id number] [place] [address]- 5992 Jul, [facility] [place] [facility] [address] [id number] [place] [address]- 3862 Jul, [facility] [place] [facility] [address] [id number] [place] [address]- 2051 Jul, [facility] [place] [facility] [address] [id number] [place] [address]- 3172 Jul, [facility] [place] [facility] [address] [id number] [place] [address]- 2920 Jul, [facility] [place] [facility] [address] [id number] [place] [address]- 2683 Jun, [facility] [place] [facility] [address] [id number] [place] 9105 Jun, [facility] [place] [facility] [address] [id number] [place] 1699 Jun, [facility] [place] [facility] [address] [id number] [place] [address]- 8651 Jun, [facility] [place] [facility] [address] [id number] [place] 4321 Jun, [facility] [place] [facility] [address] [id number] [place] [address]- 7199 Apr, [facility] [place] [facility] [address] [id number] [place] [address]- 0268 Apr, [facility] [place] [facility] [address] [id number] [place] [address]- 3410 Apr, [facility] [place] [facility] [address] [id number] [place] [address]- 9751 Mar, [facility] [place] [facility] [address] [facility] [id number] [place] [address]- 0701 Feb, [facility] [place] [facility] [address] [id number] [place] [address]- 3518 Jan, [facility] [place] [facility] [address] [id number] [place] [address]- 7841 Jan, [facility] [place] [facility] [address] [id number] [place] [address]- 0745 Dec, [facility] [place] [facility] [address] [id number] [place] [address]- 9656 November, [facility] [place] [facility] [address] [facility] [id number] [place] [address]- 6800 Oct, [facility] [place] [facility] [address], [place] [address]- 3713 Sep, [facility] [address] [place] [address]- 6906 Sep, [facility] [address] [facility] [id number], [place] [address]- 1356 Aug, [facility] [id number], [place] [address] Aug, [facility] [id number], [place] [address] Aug, [facility] [id number], [place] [address] Jul, [facility] [id number], [place] [address] Jul, [facility] [id number], [place] [address] Jun, [facility] [id number], [place] [address] Jun, [facility] [id number], [place] [address] May, [facility] [id number], [place] [address] Apr, [facility] [id number], [place] [address] Apr, IMMUNIZATIONS No Known Immunizations SOCIAL HISTORY Never Assessed REASON FOR VISIT Lab (walk-in) PLAN OF CARE VITAL SIGNS MEDICATIONS Unknown Medications RESULTS No Results PROCEDURES Procedure Date Ordered Result Body Site URINALYSIS, AUTO, W/O SCOPE Mar 02, 2018 LAB NOT BILLED BY [facility] Mar 02, 2018 INSTRUCTIONS MEDICATIONS ADMINISTERED No Known Medications MEDICAL (GENERAL) HISTORY Type Description Date Medical History GERD Surgical History cholecystectomy 2013 Hospitalization History ED [place]- Chest Pain 08/26/2017 Hospitalization History Hospital, UTI/Septic 02/20/18
== END 2018-04-10 16:15 | disposition home or self-care (01) ==
LOC: EDUNIT# 14:12 → ER 14:14
DX: Z03.89 Encounter for observation for other suspected diseases and conditions ruled out (principal); R41.82 Altered mental status, unspecified; J45.909 Unspecified asthma, uncomplicated; K21.9 Gastro-esophageal reflux disease without esophagitis; E66.9 Obesity, unspecified; F41.9 Anxiety disorder, unspecified; F32.9 Major depressive disorder, single episode, unspecified; F42.9 Obsessive-compulsive disorder, unspecified; Z68.36 Body mass index [BMI] 36.0-36.9, adult; Z82.49 Family history of ischemic heart disease and other diseases of the circulatory system; Z87.440 Personal history of urinary (tract) infections; Z86.19 Personal history of other infectious and parasitic diseases
CPT/HCPCS: 36415; 51701; 71046; 80053; 81000; 83605; 85025; 86308; 86618; 86666; 86668; 86757; 87040; 96360

== ENCOUNTER 2018-08-01 16:19 | Emergency (ER) | payer MEDICARE, MEDICAID ==
[~2018-08-01] VITALS: Ht 165.1 cm; Wt 95.3 kg
[~2018-08-01 16:19] MED LIST changes: +DOXY100T2 PO
[2018-08-01] MEDS ORDERED: CEPH-507 PO (17:02)
[2018-08-01] MEDS ORDERED: PERM60CR4 TP (17:02)
[2018-08-01] MEDS ORDERED: MUPI22OI2 TP (17:02)
--- NOTE | 2018-08-01 17:02 | ED Integumentary General ---
General Stated Complaint: SORE ON BUTTOCKS/RASH Source: patient Exam Limitations: no limitations History of Present Illness Date Seen by Provider: Aug 01, 2018 Time Seen by Provider: 16:58 Initial Comments To ER with reports of a sore on the buttocks. This is a mentally handicapped gentleman arise in the care of his father. There is a sore on the left buttocks present for several days. Timing/Duration: getting worse Severity: moderate Location: torso Associated Symptoms: denies symptoms Allergies and Home Medications Allergies Coded Allergies: NKANo Known Allergies (Unverified Allergy, Mild, 09/22/09) Home Medications Clonazepam 0.5 Mg Tablet, 0.5 MG PO DAILY PRN for ANXIETY, (Reported) Doxycycline Hyclate 100 Mg Tablet, 100 MG PO BID, (Reported) Lurasidone HCl 60 Mg Tablet, 60 MG PO DAILY, (Reported) Montelukast Sodium 10 Mg Tablet, 10 MG PO HS, (Reported) Omeprazole 20 Mg Capsule.dr, 20 MG PO DAILY, (Reported) Propranolol HCl 20 Mg Tablet, 20 MG PO BID, (Reported) Patient Home Medication List Home Medication List Reviewed: Yes Review of Systems Review of Systems Constitutional: see HPI EENTM: see HPI Respiratory: no symptoms reported Cardiovascular: no symptoms reported Genitourinary: no symptoms reported Musculoskeletal: no symptoms reported Skin: no symptoms reported Psychiatric/Neurological: No Symptoms Reported Endocrine: No Symptoms Reported Past [id number] Hx Patient Social History 2nd Hand Smoke Exposure: No Recent Foreign Travel: No Contact w/Someone Who Travel: No Recent Hopitalizations: Yes (UTI) Immunizations Up To Date Tetanus Booster (TDap): Unknown Date of Influenza Vaccine: Jun 02, 2012 Seasonal Allergies Seasonal Allergies: Yes Past Medical History Surgeries: Yes Gallbladder Respiratory: Yes Asthma Cardiac: No 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, ESSENTIAL TREMORS) Developmental Disorder Genitourinary: Yes UTI-Chronic Gastrointestinal: Yes Gastroesophageal Reflux Musculoskeletal: No Endocrine: Yes (OBESITY) HEENT: No Cancer: No Psychosocial: Yes (Mood Disorder, OCD) Anxiety, Depression Integumentary: No Blood Disorders: No Adverse Reaction/Blood Tranf: No Family Medical History Heart Disease Physical Exam Vital Signs Capillary Refill : General Appearance: WD/WN, no apparent distress HEENT: PERRL/EOMI, normal ENT inspection Neck: non-tender, full range of motion Cardiovascular: no murmur, tachycardia Respiratory: no respiratory distress, no accessory muscle use Neurologic/Psychiatric: alert, normal mood/affect, oriented x 3 Skin: other (skin around the torso is very dry. This is excoriated from him scratching it as well. There are linear erythematous streaks which are either from fingernail scratch holden that could also be scabies. There is also a 2 x 3 cm patch of excoriation to the left buttocks without induration or surrounding erythema to suggest cellulitis but this is scabbed over.) Departure Impression Primary Impression: Excoriation of buttock Qualified Codes: S30.810A - Abrasion of lower back and pelvis, initial encounter Disposition: HOME, SELF-CARE Condition: Stable Departure-Patient Inst. Decision time for Depature: 17:00 Referrals: JOAO KULKARNI MD (PCP/Family) Primary Care Physician Patient Instructions: Itchy Skin Add. Discharge Instructions: 1. Apply the permethrin cream once to his entire body except the face, leave it on for 8 hours and then wash it off. Repeat this one week later. Apply any topical antibiotic cream twice daily for 7 days and U should also purchase a thick moisturizing lotion such as Eucerin at [facility] or [facility] to help hydrate his skin. Scripts Permethrin (Permethrin) 60 Gm Cream..g. 60 GM TP ONCE, #2 TUBE Prov: ADALGISA MAHER BEHAVIORAL TECHNICIAN 08/01/18 Cephalexin (Keflex) 500 Mg Capsule 500 MG PO TID, #21 CAP Prov: ADALGISA MAHER APRN 08/01/18 Mupirocin (Mupirocin) 22 Gm Oint...g. 1 GM TP BID, #2 TUBE Apply to left buttock Prov: ADALGISA MAHER APRN 08/01/18 ADALGISA MAHER BEHAVIORAL TECHNICIAN Aug 01, 2018 17:02
[2018-08-01 17:13] VITALS: BP 136/85
--- OUTSIDE RECORDS SUMMARY | 2018-08-01 22:52 | XMS REPORT ---
Author Author JOAO KULKARNI [facility] Address [address] [place] [address] Care Team Providers Care Housing Court Judge Name Role Phone JOAO KULKARNI Unavailable PROBLEMS Type Condition ICD9-CM Code BWP92-AL Code Onset Dates Condition Status SNOMED Code Problem Encounter for long-term (current) use of other medications V58.69 Active 459519650 Problem Major depressive disorder, recurrent episode, mild 296.31 Active 78318933 Problem Wheezing 786.07 Active 83198267 Problem Obsessive compulsive disorder F42 Active 557983783 Problem Unspecified otalgia 388.70 Active 59384399 Problem Major depression, recurrent F33.9 Active 35368665 Problem Morbid (severe) obesity due to excess calories E66.01 Active [id number] Problem Major depressive disorder, recurrent episode, in partial remission F33.41 Active 64715136 Problem Altered mental status, unspecified altered mental status type R41.82 Active 444794468 Problem Coarse tremors G25.2 Active 67352805 Problem Moderate mental retardation 318.0 Active 30266391 Problem Dysfunction of Eustachian tube 381.81 Active 77964412 Problem Acute suppurative otitis media without spontaneous rupture of eardrum 382.00 Active 62364760 Problem Hyperlipidemia, unspecified hyperlipidemia type E78.5 Active 24359916 Problem Body mass index (BMI) of 40.0-44.9 in adult Z68.41 Active 265119306 Problem Essential tremor G25.0 Active 362612108 Problem MR (mental retardation) F79 Active 750633545 Problem Obsessive-compulsive disorders 300.3 Active 100234829 Problem Generalized anxiety disorder 300.02 Active 10224999 Problem Mild mental retardation 317 Active 29889989 Problem Depressive disorder, not elsewhere classified 311 Active 68074740 Problem Unspecified episodic mood disorder 296.90 Active 989413697 Problem Major depressive disorder, recurrent episode, moderate 296.32 Active 16468489 Problem Anxiety state, unspecified 300.00 Active 219791240 Problem Unspecified psychosis 298.9 Active 34009304 ALLERGIES No Known Allergies ENCOUNTERS Encounter Location Date Diagnosis [facility] [address] [address] Apr, [facility] [address] [address] Apr, [facility] [address] [address] Mar, Altered mental status, unspecified altered mental status type R41.82 ; Tachycardia R00.0 ; Acute cystitis without hematuria N30.[address] [facility] [address] [address] Mar, [facility] [address] [address] Mar, [facility] [address] [address] Feb, [facility] [address] [address] Feb, Dysuria R30.0 [facility] [address] [address]- [address] Feb, Dysuria R30.0 ; Acute cystitis without hematuria N30.00 and Tachycardia R00.0 [facility] [id number] [place] [address] Feb, Coarse tremors G25.2 and BMI 45.0-49.9, adult Z68.42 [facility] [address] [address] Jan, [facility] [address] [address]- [address] Jan, Major depressive disorder, recurrent episode, in partial remission F33.41 [facility] [address] [address]- [address] Dec, Hyperglycemia R73.9 ; Hyperlipidemia, unspecified hyperlipidemia type E78.5 ; Body mass index (BMI) of 40.0-44.9 in adult Z68.41 and MR (mental retardation) F79 [facility] [id number] [place] [address]- 480[address] November, Major depressive disorder, recurrent episode, in partial remission F33.41 ; Mental retardation F79 ; Obsessive compulsive disorder F42 and BMI 50.0-59.[address], [address] [facility] [id number] [place] [address] 6373 Oct, [facility] [address] [address] Jul, Acute nasopharyngitis J00 and Vomiting, intractability of vomiting not specified, presence of nausea not specified, unspecified vomiting type R11.10 [place] [address] [address] Jul, BMI 45.0-49.9, adult Z68.42 ; Major depressive disorder, recurrent episode, in partial remission F33.41 ; Mental retardation F79 and Obsessive compulsive disorder F42 [place] [id number] [place] [address] 60719- 0257 Jul, High risk medication use Z79.899 [place] [address] [address]- [address]186 Jun, Morbid (severe) obesity due to excess calories E66.01 ; Body mass index (BMI) of 40.0-44.9 in adult Z68.41 ; Mental retardation F79 ; Elevated blood pressure reading R03.0 ; Screening for diabetes mellitus (DM) Z13.1 and Screening for lipid disorders Z13.220 [place] [id number] [place] [address] 14148- 2388 May, High risk medication use Z79.899 ; Major depressive disorder , recurrent episode, in partial remission F33.41 ; Mental retardation F79 and Obsessive compulsive disorder F42 [facility] [address], [place] [address] May, [facility] [address] [address] Apr, [facility] [address] [facility] [address] [id number] [id number] Mar, [facility] [address], [place] [address] Jan, Major depression, recurrent F33.9 ; Mental retardation F79 and Obsessive compulsive disorder F42 [facility] [id number] [place] [address] 73242- 1883 November, Major depression, recurrent F33.9 and Obsessive compulsive disorder F42 [facility] [address], [place] [address]- 7[address] Sep, [facility] [id number] [place] [address] 6[address]- 1292 Jun, Obsessive compulsive disorder F42 ; Mental retardation F79 and Major depressive disorder, recurrent episode, in partial remission F33.41 [facility] [id number] [place] [address]90- 9045 Apr, [facility] [id number] [place] [address]- 2007 Apr, Major depression, recurrent F33.9 ; Obsessive compulsive disorder F42 and Mental retardation F79 [facility] [address], [place] [address] 24[address] Jan, [facility] [id number] [place] [address] 35243- 8679 Jan, Major depression, recurrent F33.9 ; Obsessive compulsive disorder F42 and Mental retardation F79 [facility] [address], [place] [address] Dec, [facility] [id number] [place] [address]- 3562 November, [facility] [address] [address] November, [facility] [address], [place] [address] 244[address] Oct, [facility] [address], [place] [address]- [address] Oct, Obsessive compulsive disorder F42 ; Major depression, recurrent F33.9 and Mental retardation F79 [facility] [address], [place] [address]167 Sep, [facility] [id number] [place] [address]- 1904 [address], [address] [facility] [id number] [place] [address]- [address]148 Aug, [facility] [id number] [place] [address]- 7221 Aug, [facility] [address] [address] Jul, [facility] [address] [address] Jul, [facility] [address], [place] [address]- 1689 Jul, [facility] [address], [place] [address]- 38[address] Jun, Obsessive compulsive disorder F42 ; Major depression, recurrent F33.9 and Mental retardation F79 [facility] [address] [address] Jun, [facility] [address] [address] Jun, [facility] [address] [address] May, [facility] [address] [facility] [id number] [address] [address], [address] [facility] [id number] [address] 30 Mar, 2015 Generalized anxiety disorder 300.02 and Major depressive disorder, recurrent episode, mild 296.31 [facility] [id number] [place] [address] 58[address]- 0480 14 Mar, 2015 [facility] [id number], [place] [address]- 2412 [address], [address] [facility] [id number] [place] [address] 47398- 0905 13 Jan, 2015 [facility] [id number], [place] [address]- 7666 10 Dec, 2014 Generalized anxiety disorder 300.02 and Depressive disorder , not elsewhere classified 311 [facility] [address], [place] [address]- [address] [address], [address] [facility] [address], [place] [address]- 9838 [address], [address] [facility] [address], [place] [address]- 4452 [address], [address] [facility] [address], [place] [address]- 8536 Sep, [facility] [address] [address] Jun, [facility] [address] [address] Jun, [facility] [address] [address] May, [facility] [address] [address]64 [address], [address] [facility] [id number] [place] [address] [place] [address] May, [facility] [place] [facility] [address] [id number] [place] [address]- 6081 Apr, [facility] [place] [facility] [address] [id number] [place] [address]- 8393 Apr, [facility] [place] [facility] [address] [id number] [place] [address]- 1091 Feb, [facility] [place] [facility] [address] [id number] [place] [address]- 9076 Jan, [facility] [place] [facility] [address] [id number] [place] [address]- 0814 Jan, [facility] [place] [facility] [address] [id number] [place] [address]- 4588 Dec, [facility] [place] [facility] [address] [id number] [place] [address]- 6648 Dec, [facility] [place] [facility] [address] [id number] [place] [address]- 8946 Oct, [facility] [place] [facility] [address] [id number] [place] [address]- 4387 Oct, [facility] [place] [facility] [address] [id number] [place] [address]- 9428 Oct, [facility] [place] [facility] [address] [id number] [place] [address]- 1121 Oct, [facility] [place] [facility] [address] [id number] [place] [address]- 2650 Sep, [facility] [place] [facility] [address] [id number] [place] [address]- 2987 Sep, [facility] [place] [facility] [address] [id number] [place] [address]- 7169 Sep, [facility] [place] [facility] [address] [id number] [place] [address]- 7347 Sep, [facility] [place] [facility] [address] [id number] [place] [address]- 5287 Aug, [facility] [place] [facility] [address] [id number] [place] [address]- 0454 Aug, [facility] [place] [facility] [address] [id number] [place] [address]- 2036 Aug, [facility] [place] [facility] [address] [id number] [place] [address]- 4076 Aug, [facility] [place] [facility] [address] [id number] [place] [address]- 8760 Jul, [facility] [place] [facility] [address] [id number] [place] [address]- 5199 Jul, [facility] [place] [facility] [address] [id number] [place] [address]- 8268 Jul, [facility] [place] [facility] [address] [id number] [place] [address]- 2809 Jul, [facility] [place] [facility] [address] [id number] [place] [address]- 9780 Jul, [facility] [place] [facility] [address] [id number] [place] [address]- 8153 Jul, [facility] [place] [facility] [address] [id number] [place] [address]- 7701 Apr, [facility] [place] [facility] [address] [id number], [place] [address]- 7846 Apr, [facility] [place] [facility] [address] [id number] [place] [address]- 3670 Apr, [facility] [place] [facility] [address] [id number] [place] [address]- 5285 Apr, [facility] [place] [facility] [address] [id number] [place] [address]- 5881 Apr, [facility] [place] [facility] [address] [id number] [place] [address]- 9798 21 Apr, 2012 [facility] [place] [facility] [address] [id number] [place] [address]- 9912 18 Apr, 2012 [facility] [place] [facility] [address] [id number] [place] [address]54 18 Apr, 2012 [facility] [place] [facility] [address] [id number] [place] [address]- 8362 17 Apr, 2012 [facility] [place] [facility] [address] [id number] [place] [address]- 8753 17 Apr, 2012 [facility] [place] [facility] [address] [id number] [place] [address]- 5895 16 Apr, 2012 [facility] [place] [facility] [address] [id number] [place] [address]- 1888 16 Apr, 2012 [facility] [place] [facility] [address] [id number] [place] [address]- 5421 16 Apr, 2012 [facility] [place] [facility] [address] [id number] [place] [address]- 9699 16 Apr, 2013 [facility] [place] [facility] [address] [id number] [place] [address]- 9013 18 Mar, 2012 [facility] [place] [facility] [address] [id number] [place] [address]- 7136 17 Mar, 2012 [facility] [place] [facility] [address] [id number], [place] [address]- 6704 16 Mar, 2012 [facility] [place] [facility] [address] [id number], [place] [address]- 4340 13 Mar, 2013 [facility] [place] [facility] [address] [id number] [place] [address]- 1682 Feb, [facility] [place] [facility] [address] [id number] [place] [address]- 3043 Feb, [facility] [place] [facility] [address] [id number] [place] 6[address] Jan, [facility] [place] [facility] [address] [id number] [place] [address]- 9551 Jan, [facility] [address] [id number] [place] [address]- 4348 Jan, [facility] [place] [facility] [address] [id number] [place] [address]- 8734 Jan, [facility] [address] [id number] [place] [address]- 6910 Jan, [facility] [address] [id number] [place] [address]- 8031 Jan, [facility] [address] [id number] [place] [address]- 9809 Jan, [facility] [address] [id number] [place] [address]- 8700 Jan, [facility] [address] [id number] [place] [address]- 1600 Dec, [facility] [address] [id number] [place] [address]- 3150 Dec, [facility] [place] [facility] [address] [id number] [place] [address]- 6661 Dec, [facility] [address] [id number] [place] [address]- 1846 Dec, [facility] [place] [facility] [address] [id number] [place] [address]- 2833 Dec, [facility] [address] [id number] [place] [address]- 9342 Dec, [facility] [place] [facility] [address] [id number] [place] [address]- 5648 Dec, [facility] [place] [facility] [address] [id number] [place] [address]- 2851 Dec, [facility] [place] [facility] [address] [id number] [place] [address]- 3639 Dec, [facility] [address] [id number] [place] [address]- 5829 November, [facility] [address] [id number] [place] [address]- 5433 Oct, [facility] [address] [id number] [place] [address]- 2309 Oct, [facility] [place] [facility] [address] [id number] [place] [address]- 9172 Oct, [facility] [address] [id number] [place] [address]- 8433 Oct, [facility] [address] [id number] [place] [address]- 9486 Oct, [facility] [address] [id number] [place] [address]- 8254 Oct, [facility] [address] [id number] [place] [address]- 8709 Aug, [facility] [address] [id number] [place] [address]- 8633 Aug, [facility] [address] [id number] [place] [address]- 4242 Jul, [facility] [address] [id number] [place] [address]- 3263 Jul, [facility] [place] [facility] [address] [id number] [place] [address]- 8877 Jul, [facility] [place] [facility] [address] [id number] [place] [address]- 5834 Jul, [facility] [place] [facility] [address] [id number] [place] [address]- 4180 Jul, [facility] [place] [facility] [address] [id number] [place] [address]- 1204 Jul, [facility] [place] [facility] [address] [id number] [place] [address]- 4024 Jul, [facility] [address] [id number] [place] [address]- 9943 Jun, [facility] [place] [facility] [address] [id number] [place] 2535 Jun, [facility] [place] [facility] [address] [id number] [place] [address]77 Jun, [facility] [place] [facility] [address] [id number] [place] [address]- 0627 Jun, [facility] [place] [facility] [address] [id number] [place] 8927 Jun, [facility] [place] [facility] [address] [id number] [place] [address]- 2711 Apr, [facility] [place] [facility] [address] [id number] [place] [address]- 3286 Apr, [facility] [place] [facility] [address] [id number] [place] [address]- 2104 Apr, [facility] [place] [facility] [address] [id number] [place] [address]- 5738 Mar, [facility] [place] [facility] [address] [id number] [place] [address]- 1114 Feb, [facility] [place] [facility] [address] [id number] [place] [address]- 0635 Jan, [facility] [place] [facility] [address] [id number] [place] [address]- 5100 Jan, [facility] [place] [facility] [address] [id number] [place] [address]- 6881 Dec, [facility] [place] [facility] [address] [id number] [place] [address]- 2695 November, [facility] [place] [facility] [address] [id number] [place] [address]- 3167 Oct, [facility] [address] [id number] [address] Sep, [facility] [address] [address] Sep, [facility] [address] [address] Aug, [facility] [address] [address] 1056 Aug, [facility] [address] [address] 1786 Aug, [facility] [address] [address] 2706 Jul, [facility] [address] [address] 2886 Jul, [facility] [address] [address]40 Jun, [facility] [address] [address] Jun, [facility] [address] [id number] [address] May, [facility] [address] [id number], [place] [address]- 9507 Apr, [facility] [address] [id number], [place] [address]- 5756 Apr, IMMUNIZATIONS No Known Immunizations SOCIAL HISTORY Never Assessed REASON FOR VISIT UTI--tcuppettRN PLAN OF CARE Activity Details Follow Up has appt scheduled Reason: VITAL SIGNS Height 65 in 2018-03-23 Weight 238.8 lbs 2018-03-23 Temperature 98.4 degrees Fahrenheit 2018-03-23 Heart Rate 116 bpm 2018-03-23 Respiratory Rate 20 2018-03-23 BMI 39.73 kg/m2 2018-03-23 Blood pressure systolic 142 mmHg 2018-03-23 Blood pressure diastolic 84 mmHg 2018-03-23 MEDICATIONS Medication Instructions Dosage Frequency Start Date End Date Duration Status propranolol 20 mg 1 Tablet by Oral route 2 times per day Dec, Active Singulair 10MG Orally Once a day 1 tablet in the evening 24h Active Latuda 60 MG Orally Once a day 1 tablet with food 24h 30 days Active Wellbutrin XL 150 MG Orally Once a day 1 tablet in the morning 24h November, 30 days Active Omeprazole 20MG Orally Once a day 1 capsule 24h Active Clonazepam 0.5 MG Orally as needed Once a day 1 tablet 24h Sep, 30 days Active RESULTS No Results PROCEDURES Procedure Date Ordered Result Body Site [facility] VISIT ESTABLISHED PATIENT Mar 23, 2018 INSTRUCTIONS MEDICATIONS ADMINISTERED No Known Medications MEDICAL (GENERAL) HISTORY Type Description Date Medical History GERD Surgical History cholecystectomy 2013 Hospitalization History ED [facility]- Chest Pain 08/26/2017 Hospitalization History Hospital, UTI/Septic 02/20/18 Hospitalization History viral infection 03/07/18
--- OUTSIDE RECORDS SUMMARY | 2018-08-01 22:53 | XMS REPORT ---
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 Name Role Phone OJAO KULKARNI Unavailable PROBLEMS Type Condition ICD9-CM Code [id number] Code Onset Dates Condition Status SNOMED Code Problem Encounter for long-term (current) use of other medications V58.69 Active 416735332 Problem Major depressive disorder, recurrent episode, mild 296.31 Active 04241439 Problem Wheezing 786.07 Active 59014286 Problem Obsessive compulsive disorder F42 Active 833980245 Problem Unspecified otalgia 388.70 Active 46216437 Problem Major depression, recurrent F33.9 Active 41186901 Problem Morbid (severe) obesity due to excess calories E66.01 Active [id number] Problem Major depressive disorder, recurrent episode, in partial remission F33.41 Active 47429385 Problem Altered mental status, unspecified altered mental status type R41.82 Active 373780103 Problem Coarse tremors G25.2 Active 13582722 Problem Moderate mental retardation 318.0 Active 14435543 Problem Dysfunction of Eustachian tube 381.81 Active 00541173 Problem Acute suppurative otitis media without spontaneous rupture of eardrum 382.00 Active 48739441 Problem Hyperlipidemia, unspecified hyperlipidemia type E78.5 Active 46839382 Problem Body mass index (BMI) of 40.0-44.9 in adult Z68.41 Active 657925837 Problem Essential tremor G25.0 Active 713632061 Problem MR (mental retardation) F79 Active 057926020 Problem Obsessive-compulsive disorders 300.3 Active 389332037 Problem Generalized anxiety disorder 300.02 Active 30392935 Problem Mild mental retardation 317 Active 17918666 Problem Depressive disorder, not elsewhere classified 311 Active 03033910 Problem Unspecified episodic mood disorder 296.90 Active 634047831 Problem Major depressive disorder, recurrent episode, moderate 296.32 Active 00628795 Problem Anxiety state, unspecified 300.00 Active 365569125 Problem Unspecified psychosis 298.9 Active 30024411 ALLERGIES No Information ENCOUNTERS Encounter Location Date Diagnosis [facility] [id number] [place] [address] 99288- 9084 Apr, [facility] [id number] [place] [address] 85283- 4266 Apr, [facility] [address] [address]- [address] Mar, Altered mental status, unspecified altered mental status type R41.82 ; Tachycardia R00.0 ; Acute cystitis without hematuria N30.00 and Bacteremia R78.81 [facility] [address] [address]- 3526 Mar, [facility] [address] 0[address]82- 2479 Mar, [facility] [address] 07773- 0103 Feb, [facility] [id number] [place] [address] 29016- 6395 Feb, Dysuria R30.0 [facility] [id number] [place] [address] 93345- 2824 Feb, Dysuria R30.0 ; Acute cystitis without hematuria N30.00 and Tachycardia R00.0 [facility] [id number] [place] [address] 26394 -9370 Feb, Coarse tremors G25.2 and BMI 45.0-49.9, adult Z68.42 [facility] [id number] [place] [address] 95307- 5351 Jan, [facility] [id number] [place] [address] 17967- 8001 Jan, Major depressive disorder, recurrent episode, in partial remission F33.41 [facility] [id number] [place] [address] 09629- 5187 Dec, Hyperglycemia R73.9 ; Hyperlipidemia, unspecified hyperlipidemia type E78.5 ; Body mass index (BMI) of 40.0-44.9 in adult Z68.41 and MR (mental retardation) F79 [facility] [id number] [place] [address] 25290- 2121 November, Major depressive disorder, recurrent episode, in partial remission F33.41 ; Mental retardation F79 ; Obsessive compulsive disorder F42 and BMI 50.0-59.9, adult Z68.43 [facility] [id number] [place] [address] 53163- 2990 Oct, [facility] [address] 95241 -1375 Jul, Acute nasopharyngitis J00 and Vomiting, intractability of vomiting not specified, presence of nausea not specified, unspecified vomiting type R11.10 [facility] [address] 6[address]- 2220 09 Jul, 2017 BMI 45.0-49.9, adult Z68.42 ; Major depressive disorder, recurrent episode, in partial remission F33.41 ; Mental retardation F79 and Obsessive compulsive disorder F42 [facility] [id number] [place] [address] 10936- 9723 Jul, High risk medication use Z79.899 [facility] [address] 08860- 3240 Jun, Morbid (severe) obesity due to excess calories E66.01 ; Body mass index (BMI) of 40.0-44.9 in adult Z68.41 ; Mental retardation F79 ; Elevated blood pressure reading R03.0 ; Screening for diabetes mellitus (DM) Z13.1 and Screening for lipid disorders Z13.220 [facility] [id number] [place] [address] 39601- 3413 May, High risk medication use Z79.899 ; Major depressive disorder , recurrent episode, in partial remission F33.41 ; Mental retardation F79 and Obsessive compulsive disorder F42 [facility] [id number] [address] 0746 May, [facility] [address] [address] 7246 Apr, [facility] [address] [address] [facility] [address] [id number] [id number] Mar, [facility] [address] [address]- 8170 Jan, Major depression, recurrent F33.9 ; Mental retardation F79 and Obsessive compulsive disorder F42 [facility] [address] [place] [address] 18926- 1880 November, Major depression, recurrent F33.9 and Obsessive compulsive disorder F42 [facility] [address] [address]- 1659 Sep, [facility] [id number] [place] [address] 78418- 6616 Jun, Obsessive compulsive disorder F42 ; Mental retardation F79 and Major depressive disorder, recurrent episode, in partial remission F33.41 [facility] [address] [address]- 8757 Apr, [facility] [address] [address]- 1881 Apr, Major depression, recurrent F33.9 ; Obsessive compulsive disorder F42 and Mental retardation F79 [facility] [address] [address]- 2639 Jan, [facility] [address] [place] [address] 48991- 9007 Jan, Major depression, recurrent F33.9 ; Obsessive compulsive disorder F42 and Mental retardation F79 [facility] [address] [address]- 0913 Dec, [facility] [id number] [place] [address] 96337- 9978 November, [facility] [address], [place] [address]- 5004 November, [facility] [address] [address]- 4317 Oct, [facility] [address] [address]- 4780 Oct, Obsessive compulsive disorder F42 ; Major depression, recurrent F33.9 and Mental retardation F79 [facility] [address] [address]- 6833 Sep, [facility] [id number] [place] [address] 82832- 8848 17 Aug, 2015 [facility] [id number] [place] [address] 56556- 5986 Aug, [facility] [address] [place] [address] 81070- 8247 Aug, [facility] [address] [address]- 8788 Jul, [facility] [address], [place] [address]- 1501 Jul, [facility] [address], [place] [address]- 9756 Jul, [facility] [address] [address]- 3450 Jun, Obsessive compulsive disorder F42 ; Major depression, recurrent F33.9 and Mental retardation F79 [facility] [address] 6968 Jun, [facility] [address] [address]- 1303 Jun, [facility] [address] [address]- 5870 May, [facility] [id number] [address]- 0482 15 Apr, 2015 [facility] [id number] [place] [address] 735854- 7834 30 Mar, 2015 Generalized anxiety disorder 300.02 and Major depressive disorder, recurrent episode, mild 296.31 [facility] [id number] [place] [address] 38588- 1450 14 Mar, 2015 [facility] [id number] [place] [address] 70478- 7878 13 Feb, 2015 [facility] [id number] [place] [address] 83637- 1776 13 Jan, 2015 [facility] [id number] [place] [address] 45885- 8019 10 Dec, 2014 Generalized anxiety disorder 300.02 and Depressive disorder , not elsewhere classified 311 [facility] [address] [address]- 1366 14 Oct, 2014 [facility] [address] [address]- 9322 13 Oct, 2014 [facility] [address] [place] [address] 83646- 0892 11 Sep, 2014 [facility] [address], [place] [address]- 6281 Sep, [facility] [address] [address]- 6724 Jun, [facility] [address], [place] [address]- 9021 Jun, [facility] [address], [place] [address]- 9593 May, [facility] [address], [place] [address]- 8484 18 May, 2014 [facility] [id number] [place] [address] 87321- 8001 May, [facility] [place] [facility] [address] [id number] [place] [address]- 3381 Apr, [facility] [place] [facility] [address] [id number] [place] [address]- 6979 Apr, [facility] [place] [facility] [address] [facility] [id number] [place] [address]- 6286 Feb, [facility] [place] [facility] [address] [id number] [place] [address]- 9612 Jan, [facility] [place] [facility] [address] [id number] [place] [address]- 8970 Jan, [facility] [place] [facility] [address] [id number] [place] [address]- 2145 Dec, [facility] [place] [facility] [address] [id number] [place] [address]- 3351 Dec, [facility] [place] [facility] [address] [id number] [place] [address]- 4139 Oct, [facility] [place] [facility] [address] [id number] [place] [address]- 0118 Oct, [facility] [place] [facility] [address] [facility] [id number] [place] [address]- 3507 Oct, [facility] [place] [facility] [address] [id number] [place] [address]- 2321 Oct, [facility] [place] [facility] [address] [id number] [address]- 0410 Sep, [facility] [place] [facility] [address] [id number] [place] [address]- 8870 Sep, [facility] [place] [facility] [address] [id number] [place] [address]- 6406 Sep, [facility] [place] [facility] [address] [facility] [id number] [place] [address]- 5012 Sep, [facility] [place] [facility] [address] [id number] [place] [address]- 8673 Aug, [facility] [place] [facility] [address] [id number] [place] [address]- 4013 Aug, [facility] [place] [facility] [address] [id number] [place] [address]- 8993 Aug, [facility] [place] [facility] [address] [id number] [place] [address]- 1926 Aug, [facility] [place] [facility] [address] [id number] [place] [address]- 0541 Jul, [facility] [place] [facility] [address] [id number] [place] [address]- 6674 Jul, [facility] [place] [facility] [address] [id number] [place] [address]- 0647 Jul, [facility] [place] [facility] [address] [id number] [place] [address]- 8342 Jul, [facility] [place] [facility] [address] [id number] [place] [address]- 0300 Jul, [facility] [place] [facility] [address] [id number] [place] [address]- 9332 Jul, [facility] [place] [facility] [address] [id number] [place] [address]- 2743 Apr, [facility] [place] [facility] [address] [id number] [place] [address]- 7876 Apr, [facility] [place] [facility] [address] [id number] [place] [address]- 0479 Apr, [facility] [place] [facility] [address] [id number] [place] [address]- 6412 Apr, [facility] [place] [facility] [address] [id number] [place] [address]- 8534 Apr, [facility] [place] [facility] [address] [id number] [place] [address]- 0572 21 Apr, 2013 [facility] [place] [facility] [address] [id number] [place] [address]- 0340 18 Apr, 2012 [facility] [place] [facility] [address] [id number] [place] [address]- 7086 18 Apr, 2013 [facility] [place] [facility] [address] [id number] [place] [address]- 1130 17 Apr, 2012 [facility] [place] [facility] [address] [id number] [place] 0786 17 Apr, 2012 [facility] [place] [facility] [address] [id number] [place] [address]- 1492 16 Apr, 2012 [facility] [place] [facility] [address] [id number] [place] [address]- 9990 16 Apr, 2012 [facility] [place] [facility] [address] [id number] [place] [address]- 1783 16 Apr, 2013 [facility] [place] [facility] [address] [id number] [place] [address]- 0203 16 Apr, 2013 [facility] [place] [facility] [address] [id number] [place] [address]- 5219 18 Mar, 2013 [facility] [place] [facility] [address] [id number] [place] [address]- 7097 17 Mar, 2013 [facility] [place] [facility] [address] [id number] [place] [address]- 4536 16 Mar, 2012 [facility] [place] [facility] [address] [id number] [place] [address]- 7311 13 Mar, 2013 [facility] [place] [facility] [address] [id number] [place] 1904 Feb, [facility] [place] [facility] [address] [id number] [place] [address]- 3970 Feb, [facility] [place] [facility] [address] [id number] [place] [address]- 3795 Jan, [facility] [place] [facility] [address] [id number] [place] [address]- 4048 Jan, [facility] [address] [id number] [place] [address]- 4707 Jan, [facility] [place] [facility] [address] [id number] [place] [address]- 9240 Jan, [facility] [address] [id number] [place] [address]- 8442 Jan, [facility] [address] [id number] [place] [address]- 3013 Jan, [facility] [address] [id number] [place] [address]- 9759 Jan, [facility] [address] [id number] [place] [address]- 4548 Jan, [facility] [address] [id number] [place] [address]- 5756 Dec, [facility] [address] [id number] [place] [address]- 8263 Dec, [facility] [place] [facility] [address] [id number] [place] [address]- 3386 Dec, [facility] [address] [id number] [place] [address]- 1856 Dec, [facility] [place] [facility] [address] [id number] [place] [address]- 8825 Dec, [facility] [address] [id number] [place] [address]- 5785 Dec, [facility] [place] [facility] [address] [id number] [place] [address]- 9425 Dec, [facility] [place] [facility] [address] [id number] [place] [address]- 3356 Dec, [facility] [place] [facility] [address] [id number] [place] [address]- 6926 Dec, [facility] [address] [id number] [place] [address]- 9427 November, [facility] [address] [id number] [place] [address]- 9409 Oct, [facility] [address] [id number] [place] [address]- 5329 Oct, [facility] [address] [id number] [place] [address]- 3373 Oct, [facility] [address] [id number] [place] [address]- 6529 Oct, [facility] [address] [id number] [place] [address]- 2282 Oct, [facility] [address] [id number] [place] [address]- 3846 Oct, [facility] [address] [id number] [place] [address]- 5434 Aug, [facility] [address] [id number] [place] [address]- 7480 Aug, [facility] [address] [id number] [place] [address]- 6956 Jul, [facility] [address] [id number] [place] [address]- 3611 Jul, [facility] [place] [facility] [address] [id number] [place] [address]- 0178 Jul, [facility] [place] [facility] [address] [id number] [place] [address]- 1166 Jul, [facility] [place] [facility] [address] [id number] [place] [address]- 6547 Jul, [facility] [place] [facility] [address] [id number] [place] [address]- 4121 Jul, [facility] [place] [facility] [address] [id number] [place] [address]- 8567 Jul, [facility] [place] [facility] [address] [id number] [place] [address]- 9008 Jun, [facility] [place] [facility] [address] [id number] [place] 4400 Jun, [facility] [place] [facility] [address] [id number] [place] 7294 Jun, [facility] [place] [facility] [address] [id number] [place] [address]- 5991 Jun, [facility] [place] [facility] [address] [id number] [place] 1926 Jun, [facility] [place] [facility] [address] [id number] [place] [address]- 2345 Apr, [facility] [place] [facility] [address] [id number] [place] [address]- 4590 Apr, [facility] [place] [facility] [address] [id number] [place] [address]- 3263 Apr, [facility] [place] [facility] [address] [id number] [place] [address]- 7580 Mar, [facility] [place] [facility] [address] [facility] [id number] [place] [address]- 4512 Feb, [facility] [place] [facility] [address] [id number] [place] [address]- 2777 Jan, [facility] [place] [facility] [address] [id number] [place] [address]- 3474 Jan, [facility] [place] [facility] [address] [id number] [place] [address]- 6048 Dec, [facility] [place] [facility] [address] [id number] [place] [address]- 5122 November, [facility] [place] [facility] [address] [facility] [id number] [place] [address]- 4951 Oct, [facility] [place] [facility] [address], [place] [address]- 5876 Sep, [facility] [address] [address]- 5316 Sep, [facility] [address], [place] [address]- 2546 Aug, [facility] [address], [place] [address]- 2546 Aug, [facility] [address], [place] [address]- 2546 Aug, [facility] [address], [place] [address]- 5256 Jul, [facility] [address], [place] [address]- 3166 Jul, [facility] [address], [place] [address]- 0336 Jun, [facility] [address], [place] [address]- 8485 Jun, [facility] [address], [place] [address]- 7246 May, [facility] [id number] [address]- 6726 Apr, [facility] [id number], [place] [address]- 2546 Apr, IMMUNIZATIONS No Known Immunizations SOCIAL HISTORY Never Assessed REASON FOR VISIT Triage--tcuppettRN PLAN OF CARE VITAL SIGNS MEDICATIONS Unknown Medications RESULTS No Results PROCEDURES No Known procedures INSTRUCTIONS MEDICATIONS ADMINISTERED No Known Medications MEDICAL (GENERAL) HISTORY Type Description Date Medical History GERD Surgical History cholecystectomy 2013 Hospitalization History ED [place]- Chest Pain 08/26/2017 Hospitalization History Hospital, UTI/Septic 02/20/18 Hospitalization History viral infection 03/07/18
--- OUTSIDE RECORDS SUMMARY | 2018-08-01 22:53 | XMS REPORT ---
Author Author ELICEO FLAHERTY [facility] Address [address] [place] [address] Care Team Providers Care Wellness Rn Name Role Phone ALEKSANDRAMARYSHANNASLIME HaiderT Unavailable PROBLEMS Type Condition ICD9-CM Code GNO37-YU Code Onset Dates Condition Status SNOMED Code Problem Encounter for long-term (current) use of other medications V58.69 Active 660373552 Problem Major depressive disorder, recurrent episode, mild 296.31 Active 46267339 Problem Wheezing 786.07 Active 89999820 Problem Obsessive compulsive disorder F42 Active 690259171 Problem Unspecified otalgia 388.70 Active 40735756 Problem Major depression, recurrent F33.9 Active 56851613 Problem Morbid (severe) obesity due to excess calories E66.01 Active 24688791756336 Problem Major depressive disorder, recurrent episode, in partial remission F33.41 Active 81825440 Problem Altered mental status, unspecified altered mental status type R41.82 Active 131623757 Problem Coarse tremors G25.2 Active 30482603 Problem Moderate mental retardation 318.0 Active 88581606 Problem Dysfunction of Eustachian tube 381.81 Active 11980188 Problem Acute suppurative otitis media without spontaneous rupture of eardrum 382.00 Active 79719901 Problem Hyperlipidemia, unspecified hyperlipidemia type E78.5 Active 37555246 Problem Body mass index (BMI) of 40.0-44.9 in adult Z68.41 Active 236676370 Problem Essential tremor G25.0 Active 881739297 Problem MR (mental retardation) F79 Active 497835812 Problem Obsessive-compulsive disorders 300.3 Active 242859930 Problem Generalized anxiety disorder 300.02 Active 78495022 Problem Mild mental retardation 317 Active 49946384 Problem Depressive disorder, not elsewhere classified 311 Active 73663844 Problem Unspecified episodic mood disorder 296.90 Active 816476987 Problem Major depressive disorder, recurrent episode, moderate 296.32 Active 55897054 Problem Anxiety state, unspecified 300.00 Active 920709201 Problem Unspecified psychosis 298.9 Active 07650308 ALLERGIES No Information ENCOUNTERS Encounter Location Date Diagnosis [facility] [address] [address] Apr, [facility] [address] [address] Apr, [facility] [address] [address] Mar, Altered mental status, unspecified altered mental status type R41.82 ; Tachycardia R00.0 ; Acute cystitis without hematuria N30.00 and Bacteremia R78.81 [facility] [address] [address] Mar, [facility] [address] [address] Mar, [facility] [address] [address] Feb, [facility] [address] [address] Feb, Dysuria R30.0 [facility] [address] [address] Feb, Dysuria R30.0 ; Acute cystitis without hematuria N30.00 and Tachycardia R00.0 [facility] [id number] [place] [address] Feb, Coarse tremors G25.2 and BMI 45.0-49.9, adult Z68.42 [facility] [address] [address] Jan, [facility] [address] [address] Jan, Major depressive disorder, recurrent episode, in partial remission F33.41 [facility] [address] [place] [address] Dec, Hyperglycemia R73.9 ; Hyperlipidemia, unspecified hyperlipidemia type E78.5 ; Body mass index (BMI) of 40.0-44.9 in adult Z68.41 and MR (mental retardation) F79 [place] [address] [address] November, Major depressive disorder, recurrent episode, in partial remission F33.41 ; Mental retardation F79 ; Obsessive compulsive disorder F42 and BMI 50.0-59.9, adult Z68.43 [place] [address] [address] Oct, [facility] [address] [address] Jul, Acute nasopharyngitis J00 and Vomiting, intractability of vomiting not specified, presence of nausea not specified, unspecified vomiting type R11.10 [place] [address] [address] 09 Jul, 2017 BMI 45.0-49.9, adult Z68.42 ; Major depressive disorder, recurrent episode, in partial remission F33.41 ; Mental retardation F79 and Obsessive compulsive disorder F42 [place] [id number] [place] [address] Jul, High risk medication use Z79.899 [place] [address] [address] Jun, Morbid (severe) obesity due to excess calories E66.01 ; Body mass index (BMI) of 40.0-44.9 in adult Z68.41 ; Mental retardation F79 ; Elevated blood pressure reading R03.0 ; Screening for diabetes mellitus (DM) Z13.1 and Screening for lipid disorders Z13.220 [place] [id number] [place] [address] 13 May, 2017 High risk medication use Z79.899 ; Major depressive disorder , recurrent episode, in partial remission F33.41 ; Mental retardation F79 and Obsessive compulsive disorder F42 [facility] [id number] [address] May, [facility] [address] [address] Apr, [facility] [address] [facility] [id number] [id number] Mar, [facility] [address] [address] Jan, Major depression, recurrent F33.9 ; Mental retardation F79 and Obsessive compulsive disorder F42 [facility] [address] [address] November, Major depression, recurrent F33.9 and Obsessive compulsive disorder F42 [facility] [address] [address] Sep, [facility] [id number] [address] Jun, Obsessive compulsive disorder F42 ; Mental retardation F79 and Major depressive disorder, recurrent episode, in partial remission F33.41 [facility] [address], [place] [address] Apr, [facility] [address] [address] Apr, Major depression, recurrent F33.9 ; Obsessive compulsive disorder F42 and Mental retardation F79 [facility] [address] [address] Jan, [facility] [address] [address] Jan, Major depression, recurrent F33.9 ; Obsessive compulsive disorder F42 and Mental retardation F79 [facility] [address] [address] Dec, [facility] [address] [address] November, [facility] [address] [address] 9[address] November, [facility] [address] [address] Oct, [facility] [id number] [place] [address] Oct, Obsessive compulsive disorder F42 ; Major depression, recurrent F33.9 and Mental retardation F79 [facility] [address], [place] [address] Sep, [facility] [address] [place] [address] 17 Aug, 2015 [facility] [address] [place] [address] Aug, [facility] [id number] [address] Aug, [facility] [address] [place] [address] Jul, [facility] [address] [address] Jul, [facility] [address] [address]- 9[address] Jul, [facility] [address], [place] [address] Jun, Obsessive compulsive disorder F42 ; Major depression, recurrent F33.9 and Mental retardation F79 [facility] [address], [place] [address]- [address] Jun, [facility] [address] [address]- [address] Jun, [facility] [address] [address] 17 May, 2015 [facility] [id number] [address] 15 Apr, 2015 [facility] [address] [address] 30 Mar, 2015 Generalized anxiety disorder 300.02 and Major depressive disorder, recurrent episode, mild 296.31 [facility] [id number] [place] [address]- 288[address] 14 Mar, 2015 [facility] [address], [place] [address]- [address] 13 Feb, 2015 [facility] [address] [place] [address]- [address] 13 Jan, 2015 [facility] [id number] [address]- [address] 10 Dec, 2014 Generalized anxiety disorder 300.02 and Depressive disorder , not elsewhere classified 311 [facility] [address] [address]- 95[address] 14 Oct, 2014 [facility] [address], [place] [address]- [address] 13 Oct, 2014 [facility] [address] [address]- [address] 11 Sep, 2014 [facility] [address], [place] [address]- 36[address] Sep, [facility] [address], [place] [address]- [address] Jun, [facility] [address] [address]- 100[address] Jun, [facility] [address] [address] May, [facility] [address] [address]- 25[address] 18 May, 2014 [facility] [id number] [address]- [address] May, [facility] [place] [facility] [address] [id number] [place] [address]- [address] Apr, [facility] [place] [facility] [address] [id number] [place] [address]- 4846 Apr, [facility] [place] [facility] [address] [id number] [place] [address]- 60[address] Feb, [facility] [place] [facility] [address] [id number] [place] [address]- 9831 Jan, [facility] [place] [facility] [address] [id number] [place] [address]- 3641 Jan, [facility] [place] [facility] [address] [id number] [place] [address]- 0774 Dec, [facility] [place] [facility] [address] [id number] [place] [address]- 0080 Dec, [facility] [address] [id number] [place] [address]- 3093 Oct, [facility] [place] [facility] [address] [id number] [place] [address]- 7201 Oct, [facility] [address] [id number] [place] [address]- 9382 Oct, [facility] [place] [facility] [address] [id number] [place] [address]- 1362 Oct, [facility] [place] [facility] [address] [id number] [place] [address]- 1470 Sep, [facility] [place] [facility] [address] [id number] [place] [address]- 2175 Sep, [facility] [place] [facility] [address] [id number] [place] [address]- 8395 Sep, [facility] [place] [facility] [address] [id number] [place] [address]- 5919 Sep, [facility] [place] [facility] [address] [id number] [place] [address]- 4815 Aug, [facility] [place] [facility] [address] [id number] [place] [address]- 8899 Aug, [facility] [place] [facility] [address] [id number] [place] [address]- 9590 Aug, [facility] [place] [facility] [address] [id number] [place] [address]- 3796 Aug, [facility] [place] [facility] [address] [id number] [place] [address]- 1135 Jul, [facility] [place] [facility] [address] [id number] [place] [address]- 9353 Jul, [facility] [place] [facility] [address] [id number] [place] [address]- 1846 Jul, [facility] [place] [facility] [address] [id number] [place] [address]- 2874 Jul, [facility] [place] [facility] [address] [id number] [place] [address]- 8621 Jul, [facility] [place] [facility] [address] [id number] [place] [address]- 3316 Jul, [facility] [place] [facility] [address] [id number], [place] [address]- 2169 Apr, [facility] [place] [facility] [address] [id number], [place] [address]- 7239 Apr, [facility] [place] [facility] [address] [id number] [place] [address]- 1538 Apr, [facility] [place] [facility] [address] [id number] [place] [address]- 4855 Apr, [facility] [place] [facility] [address] [id number] [place] [address]- 7689 Apr, [facility] [place] [facility] [address] [id number] [place] [address]- 8061 21 Apr, 2012 [facility] [place] [facility] [address] [id number] [place] [address]- 5819 18 Apr, 2012 [facility] [place] [facility] [address] [id number] [place] [address]- 0005 18 Apr, 2012 [facility] [place] [facility] [address] [id number] [place] [address]- 0043 17 Apr, 2012 [facility] [place] [facility] [address] [id number] [place] [address]- 2888 17 Apr, 2012 [facility] [place] [facility] [address] [id number] [place] [address]- 1223 16 Apr, 2012 [facility] [place] [facility] [address] [id number] [place] [address]- 4691 16 Apr, 2012 [facility] [place] [facility] [address] [id number] [place] [address]- 8664 16 Apr, 2012 [facility] [place] [facility] [address] [id number] [place] [address]- 5278 16 Apr, 2012 [facility] [place] [facility] [address] [id number] [place] [address]- 1376 18 Mar, 2012 [facility] [place] [facility] [address] [id number] [place] [address]- 5264 17 Mar, 2012 [facility] [place] [facility] [address] [id number] [place] [address]- 8089 16 Mar, 2012 [facility] [place] [facility] [address] [id number] [place] [address]- 2424 13 Mar, 2012 [facility] [place] [facility] [address] [id number] [place] [address] Feb, [facility] [place] [facility] [address] [id number] [place] [address]- 0621 Feb, [facility] [place] [facility] [address] [id number] [place] [address]- 0852 Jan, [facility] [place] [facility] [address] [id number] [place] [address]- 7875 Jan, [facility] [place] [facility] [address] [id number] [place] [address]- 9948 Jan, [facility] [place] [facility] [address] [id number] [place] [address]- 7236 Jan, [facility] [place] [facility] [address] [id number] [place] [address]- 4340 Jan, [facility] [address] [id number] [place] [address]- 6836 Jan, [facility] [place] [facility] [address] [id number] [place] [address]- 5099 Jan, [facility] [address] [id number] [place] [address]- 0746 Jan, [facility] [address] [id number] [place] [address]- 0092 Dec, [facility] [place] [facility] [address] [id number] [place] [address]- 2810 Dec, [facility] [place] [facility] [address] [id number] [place] [address]- 6987 Dec, [facility] [place] [facility] [address] [id number] [place] [address]- 2779 Dec, [facility] [place] [facility] [address] [id number] [place] [address]- 8793 Dec, [facility] [place] [facility] [address] [id number] [place] [address]- 8142 Dec, [facility] [place] [facility] [address] [id number] [place] [address]- 2293 Dec, [facility] [place] [facility] [address] [id number] [place] [address]- 2342 Dec, [facility] [place] [facility] [address] [id number] [place] [address]- 1709 Dec, [facility] [address] [id number] [place] [address]- 9717 November, [facility] [address] [id number] [place] [address]- 7847 Oct, [facility] [address] [id number] [place] [address]- 6077 Oct, [facility] [address] [id number] [place] [address]- 4521 Oct, [facility] [address] [id number] [place] [address]- 8110 Oct, [facility] [address] [id number] [place] [address]- 9938 Oct, [facility] [address] [id number] [place] [address]- 3137 Oct, [facility] [address] [id number] [place] [address]- 3489 Aug, [facility] [address] [id number] [place] [address]- 3818 Aug, [facility] [address] [id number] [place] [address]- 4288 Jul, [facility] [address] [id number] [place] [address]- 5120 Jul, [facility] [place] [facility] [address] [id number] [place] [address]- 2788 Jul, [facility] [place] [facility] [address] [id number] [place] [address]- 8533 Jul, [facility] [place] [facility] [address] [id number] [place] [address]- 9289 Jul, [facility] [place] [facility] [address] [id number] [place] [address]- 2352 Jul, [facility] [place] [facility] [address] [id number] [place] [address]- 7806 Jul, [facility] [place] [facility] [address] [id number] [place] [address]- 1420 Jun, [facility] [place] [facility] [address] [id number] [place] [address] Jun, [facility] [place] [facility] [address] [id number] [place] [address]- 3664 Jun, [facility] [place] [facility] [address] [id number] [place] [address]- 5859 Jun, [facility] [place] [facility] [address] [id number] [place] [address]- 3252 Jun, [facility] [place] [facility] [address] [id number] [place] [address]- 6069 Apr, [facility] [place] [facility] [address] [id number] [place] [address]- 5368 Apr, [facility] [place] [facility] [address] [id number] [place] [address]- 9881 Apr, [facility] [place] [facility] [address] [id number] [place] [address]- 9649 Mar, [facility] [place] [facility] [address] [id number] [place] [address]- 8386 Feb, [facility] [place] [facility] [address] [id number] [place] [address]- 3284 Jan, [facility] [place] [facility] [address] [id number] [place] [address]- 2650 Jan, [facility] [place] [facility] [address] [id number] [place] [address]- 6571 Dec, [facility] [place] [facility] [address] [id number] [place] [address]- 9276 November, [facility] [place] [facility] [address] [id number] [place] [address]- 8980 Oct, [facility] [id number] [address]- 1136 Sep, [facility] [address] [address]- 2546 Sep, [facility] [address], [place] [address]- 2546 Aug, [facility] [address], [place] [address]- 2546 Aug, [facility] [address], [place] [address]- 2546 Aug, [facility] [address], [place] [address]- 2546 Jul, [facility] [address], [place] [address]- 2546 Jul, [facility] [address] [address]- 2546 Jun, [facility] [address] [address]- 2546 Jun, [facility] [address] [address]- 2546 May, [facility] [id number] [address]- 2546 Apr, [facility] [address] [address]- 2546 Apr, IMMUNIZATIONS No Known Immunizations SOCIAL HISTORY Never Assessed REASON FOR VISIT PLAN OF CARE VITAL SIGNS MEDICATIONS Unknown Medications RESULTS No Results PROCEDURES No Known procedures INSTRUCTIONS MEDICATIONS ADMINISTERED No Known Medications MEDICAL (GENERAL) HISTORY Type Description Date Medical History GERD Surgical History cholecystectomy 2013 Hospitalization History ED [place]- Chest Pain 08/26/2017 Hospitalization History Hospital, UTI/Septic 02/20/18 Hospitalization History viral infection 03/07/18
--- OUTSIDE RECORDS SUMMARY | 2018-08-01 22:54 | XMS REPORT ---
Author Author JOAO KULKARNI [facility] Address [address] [place] [address] Care Team Providers Care Log Brander Name Role Phone JOAO KULKARNI Unavailable PROBLEMS Type Condition ICD9-CM Code [id number] Code Onset Dates Condition Status SNOMED Code Problem Encounter for long-term (current) use of other medications V58.69 Active 039008454 Problem Major depressive disorder, recurrent episode, mild 296.31 Active 97756796 Problem Wheezing 786.07 Active 11167927 Problem Obsessive compulsive disorder F42 Active 883389055 Problem Unspecified otalgia 388.70 Active 19141502 Problem Major depression, recurrent F33.9 Active 09580414 Problem Morbid (severe) obesity due to excess calories E66.01 Active 76964332794259 Problem Major depressive disorder, recurrent episode, in partial remission F33.41 Active 05356254 Problem Altered mental status, unspecified altered mental status type R41.82 Active 724431277 Problem Coarse tremors G25.2 Active 91230118 Problem Moderate mental retardation 318.0 Active 90673196 Problem Dysfunction of Eustachian tube 381.81 Active 94226220 Problem Acute suppurative otitis media without spontaneous rupture of eardrum 382.00 Active 68012583 Problem Hyperlipidemia, unspecified hyperlipidemia type E78.5 Active 12244910 Problem Body mass index (BMI) of 40.0-44.9 in adult Z68.41 Active 388337009 Problem Essential tremor G25.0 Active 089225107 Problem MR (mental retardation) F79 Active 796843893 Problem Obsessive-compulsive disorders 300.3 Active 263742607 Problem Generalized anxiety disorder 300.02 Active 97244500 Problem Mild mental retardation 317 Active 01869995 Problem Depressive disorder, not elsewhere classified 311 Active 47860195 Problem Unspecified episodic mood disorder 296.90 Active 723298653 Problem Major depressive disorder, recurrent episode, moderate 296.32 Active 23672152 Problem Anxiety state, unspecified 300.00 Active 622491491 Problem Unspecified psychosis 298.9 Active 66407779 ALLERGIES No Known Allergies ENCOUNTERS Encounter Location Date Diagnosis [facility] [address] [address] Apr, [facility] [address] [address] Apr, [facility] [address] [address] Mar, Altered mental status, unspecified altered mental status type R41.82 ; Tachycardia R00.0 ; Acute cystitis without hematuria N30.00 and Bacteremia R78.81 [facility] [address] [address] Mar, [facility] [address] [address] Mar, [facility] [address] [address] Feb, [facility] [address] [address] Feb, Dysuria R30.0 [facility] [address] [address] Feb, Dysuria R30.0 ; Acute cystitis without hematuria N30.00 and Tachycardia R00.0 [facility] [id number] [place] [address] Feb, Coarse tremors G25.2 and BMI 45.0-49.9, adult Z68.42 [facility] [address] [address] Jan, [facility] [address] [address] Jan, Major depressive disorder, recurrent episode, in partial remission F33.41 [facility] [address] [address] Dec, Hyperglycemia R73.9 ; Hyperlipidemia, unspecified hyperlipidemia type E78.5 ; Body mass index (BMI) of 40.0-44.9 in adult Z68.41 and MR (mental retardation) F79 [facility] [id number] [place] [address]- [address]309 November, Major depressive disorder, recurrent episode, in partial remission F33.41 ; Mental retardation F79 ; Obsessive compulsive disorder F42 and BMI 50.0-59.9, adult Z68.43 [facility] [id number] [place] [address]- 4402 Oct, [facility] [address] [address] Jul, Acute nasopharyngitis J00 and Vomiting, intractability of vomiting not specified, presence of nausea not specified, unspecified vomiting type R11.10 [place] [address] [address] Jul, BMI 45.0-49.9, adult Z68.42 ; Major depressive disorder, recurrent episode, in partial remission F33.41 ; Mental retardation F79 and Obsessive compulsive disorder F42 [place] [id number] [place] [address]26- 5582 Jul, High risk medication use Z79.899 [place] [address] [address]- [address]247 Jun, Morbid (severe) obesity due to excess calories E66.01 ; Body mass index (BMI) of 40.0-44.9 in adult Z68.41 ; Mental retardation F79 ; Elevated blood pressure reading R03.0 ; Screening for diabetes mellitus (DM) Z13.1 and Screening for lipid disorders Z13.220 [place] [id number] [place] [address]- 2082 May, High risk medication use Z79.899 ; Major depressive disorder , recurrent episode, in partial remission F33.41 ; Mental retardation F79 and Obsessive compulsive disorder F42 [facility] [address] [address] May, [facility] [address] [address] 386[address] Apr, [facility] [address] [id number] [id number] Mar, [facility] [address], [place] [address] Jan, Major depression, recurrent F33.9 ; Mental retardation F79 and Obsessive compulsive disorder F42 [facility] [id number] [place] [address] 13796- 9105 November, Major depression, recurrent F33.9 and Obsessive compulsive disorder F42 [facility] [address], [place] [address] 7[address] Sep, [facility] [id number] [place] [address] 49757- 6635 Jun, Obsessive compulsive disorder F42 ; Mental retardation F79 and Major depressive disorder, recurrent episode, in partial remission F33.41 [facility] [id number] [place] [address]- 2279 Apr, [facility] [id number] [place] [address] 8[address]12- 7495 Apr, Major depression, recurrent F33.9 ; Obsessive compulsive disorder F42 and Mental retardation F79 [facility] [address] [address] 9149 Jan, [facility] [id number] [place] [address] 10251- 9261 Jan, Major depression, recurrent F33.9 ; Obsessive compulsive disorder F42 and Mental retardation F79 [facility] [address], [place] [address] 5[address] Dec, [facility] [id number] [place] [address]- 5021 November, [facility] [address], [place] [address] November, [facility] [address], [place] [address]- 9933 Oct, [facility] [address] [address]- 8269 Oct, Obsessive compulsive disorder F42 ; Major depression, recurrent F33.9 and Mental retardation F79 [facility] [address], [place] [address]- 6[address] Sep, [facility] [id number] [place] [address] 04098- 5868 17 Aug, 2015 [facility] [id number] [place] [address] 72669- 1469 Aug, [facility] [id number] [place] [address] 32750- 0800 Aug, [facility] [address], [place] [address]- 8953 Jul, [facility] [address], [place] [address]- 1135 Jul, [facility] [address], [place] [address]- 3687 Jul, [facility] [address] [address] Jun, Obsessive compulsive disorder F42 ; Major depression, recurrent F33.9 and Mental retardation F79 [facility] [address] [address] Jun, [facility] [address], [place] [address]- 2926 Jun, [facility] [address] [address]- [address] May, [facility] [address] [facility] [id number] [address] 15 Apr, 2015 [facility] [id number] [address] 30 Mar, 2015 Generalized anxiety disorder 300.02 and Major depressive disorder, recurrent episode, mild 296.31 [facility] [id number] [place] [address] 927[address]- 5917 14 Mar, 2015 [facility] [id number] [address]- 5525 13 Feb, 2015 [facility] [id number] [place] [address] 76377- 6480 13 Jan, 2015 [facility] [id number] [address]- 9587 10 Dec, 2014 Generalized anxiety disorder 300.02 and Depressive disorder , not elsewhere classified 311 [facility] [address], [place] [address]- 409[address] 14 Oct, 2014 [facility] [address], [place] [address]- 8318 13 Oct, 2014 [facility] [address], [place] [address]- 5394 11 Sep, 2014 [facility] [address] [address]- 6650 Sep, [facility] [address], [place] [address]- 8765 Jun, [facility] [address], [place] [address]- 9398 Jun, [facility] [address] [address] May, [facility] [address] [address] 18 May, 2014 [facility] [id number] [place] [address] [place] [address]- [address]149 May, [facility] [place] [facility] [address] [id number] [place] [address]- 1531 Apr, [facility] [place] [facility] [address] [id number] [place] [address]- 0970 Apr, [facility] [place] [facility] [address] [id number] [place] [address]- 3946 Feb, [facility] [place] [facility] [address] [id number] [place] [address]- 0788 Jan, [facility] [place] [facility] [address] [id number] [place] [address]- 4125 Jan, [facility] [place] [facility] [address] [id number] [place] [address]- 9755 Dec, [facility] [place] [facility] [address] [id number] [place] [address]- 1390 Dec, [facility] [place] [facility] [address] [id number] [place] [address]- 2665 Oct, [facility] [place] [facility] [address] [id number] [place] [address]- 1360 Oct, [facility] [place] [facility] [address] [id number] [place] [address]- 8773 Oct, [facility] [place] [facility] [address] [id number] [place] [address]- 9055 Oct, [facility] [place] [facility] [address] [id number] [place] [address]- 7838 Sep, [facility] [place] [facility] [address] [id number] [place] [address]- 5627 Sep, [facility] [place] [facility] [address] [id number] [place] [address]- 5806 Sep, [facility] [place] [facility] [address] [id number] [place] [address]- 0519 Sep, [facility] [place] [facility] [address] [id number] [place] [address]- 3756 Aug, [facility] [place] [facility] [address] [id number] [place] [address]- 2272 Aug, [facility] [place] [facility] [address] [id number] [place] [address]- 9996 Aug, [facility] [place] [facility] [address] [id number] [place] [address]- 7839 Aug, [facility] [place] [facility] [address] [id number] [place] [address]- 8576 Jul, [facility] [place] [facility] [address] [id number] [place] [address]- 8284 Jul, [facility] [place] [facility] [address] [id number] [place] [address]- 1854 Jul, [facility] [place] [facility] [address] [id number] [place] [address]- 1300 Jul, [facility] [place] [facility] [address] [id number] [place] [address]- 3634 Jul, [facility] [place] [facility] [address] [id number] [place] [address]- 1447 Jul, [facility] [place] [facility] [address] [id number] [place] [address]- 2695 Apr, [facility] [place] [facility] [address] [id number] [address]- 2290 Apr, [facility] [place] [facility] [address] [id number] [place] [address]- 4738 Apr, [facility] [place] [facility] [address] [id number] [place] [address]- 8645 Apr, [facility] [place] [facility] [address] [id number] [place] [address]- 8362 Apr, [facility] [place] [facility] [address] [id number] [place] [address]- 1711 21 Apr, 2012 [facility] [place] [facility] [address] [id number] [place] [address]- 7869 18 Apr, 2012 [facility] [place] [facility] [address] [id number] [place] 3321 18 Apr, 2012 [facility] [place] [facility] [address] [id number] [place] [address]- 5193 17 Apr, 2012 [facility] [place] [facility] [address] [id number] [place] [address]- 5242 17 Apr, 2012 [facility] [place] [facility] [address] [id number] [place] [address]- 0588 16 Apr, 2012 [facility] [place] [facility] [address] [id number] [place] [address]- 4985 16 Apr, 2012 [facility] [place] [facility] [address] [id number] [place] [address]- 4837 16 Apr, 2012 [facility] [place] [facility] [address] [id number] [place] [address]- 1995 16 Apr, 2013 [facility] [place] [facility] [address] [id number] [place] [address]- 0510 18 Mar, 2012 [facility] [place] [facility] [address] [id number] [place] [address]- 8993 17 Mar, 2012 [facility] [place] [facility] [address] [id number], [place] [address]- 7069 16 Mar, 2012 [facility] [place] [facility] [address] [id number], [place] [address]- 9602 13 Mar, 2013 [facility] [place] [facility] [address] [id number] [place] [address]- 7125 Feb, [facility] [place] [facility] [address] [id number] [place] [address]- 3604 Feb, [facility] [place] [facility] [address] [id number] [place] [address] Jan, [facility] [place] [facility] [address] [id number] [place] [address]- 5694 Jan, [facility] [address] [id number] [place] [address]- 6760 Jan, [facility] [place] [facility] [address] [id number] [place] [address]- 4534 Jan, [facility] [address] [id number] [place] [address]- 1123 Jan, [facility] [address] [id number] [place] [address]- 9147 Jan, [facility] [address] [id number] [place] [address]- 2504 Jan, [facility] [address] [id number] [place] [address]- 9774 Jan, [facility] [address] [id number] [place] [address]- 1000 Dec, [facility] [address] [id number] [place] [address]- 6255 Dec, [facility] [place] [facility] [address] [id number] [place] [address]- 5217 Dec, [facility] [address] [id number] [place] [address]- 4635 Dec, [facility] [place] [facility] [address] [id number] [place] [address]- 3512 Dec, [facility] [address] [id number] [place] [address]- 9280 Dec, [facility] [place] [facility] [address] [id number] [place] [address]- 5657 Dec, [facility] [place] [facility] [address] [id number] [place] [address]- 6491 Dec, [facility] [place] [facility] [address] [id number] [place] [address]- 9420 Dec, [facility] [address] [id number] [place] [address]- 5016 November, [facility] [address] [id number] [place] [address]- 0978 Oct, [facility] [address] [id number] [place] [address]- 0085 Oct, [facility] [place] [facility] [address] [id number] [place] [address]- 3669 Oct, [facility] [address] [id number] [place] [address]- 0305 Oct, [facility] [address] [id number] [place] [address]- 0575 Oct, [facility] [address] [id number] [place] [address]- 1905 Oct, [facility] [address] [id number] [place] [address]- 2913 Aug, [facility] [address] [id number] [place] [address]- 2710 Aug, [facility] [address] [id number] [place] [address]- 9927 Jul, [facility] [address] [id number] [place] [address]- 2098 Jul, [facility] [place] [facility] [address] [id number] [place] [address]- 3348 Jul, [facility] [place] [facility] [address] [id number] [place] [address]- 4319 Jul, [facility] [place] [facility] [address] [id number] [place] [address]- 2460 Jul, [facility] [place] [facility] [address] [id number] [place] [address]- 3703 Jul, [facility] [place] [facility] [address] [id number] [place] [address]- 1806 Jul, [facility] [address] [id number] [place] [address]- 1778 Jun, [facility] [place] [facility] [address] [id number] [place] [address]796 Jun, [facility] [place] [facility] [address] [id number] [place] [address]29 Jun, [facility] [place] [facility] [address] [id number] [place] [address]- 0083 Jun, [facility] [place] [facility] [address] [id number] [place] 6769 Jun, [facility] [place] [facility] [address] [id number] [place] [address]- 7660 Apr, [facility] [place] [facility] [address] [id number] [place] [address]- 8204 Apr, [facility] [place] [facility] [address] [id number] [place] [address]- 6911 Apr, [facility] [place] [facility] [address] [id number] [place] [address]- 4944 Mar, [facility] [place] [facility] [address] [id number] [place] [address]- 0464 Feb, [facility] [place] [facility] [address] [id number] [place] [address]- 4200 Jan, [facility] [place] [facility] [address] [id number] [place] [address]- 4080 Jan, [facility] [place] [facility] [address] [id number] [place] [address]- 4783 Dec, [facility] [place] [facility] [address] [id number] [place] [address]- 1435 November, [facility] [place] [facility] [address] [id number] [place] [address]- 8007 Oct, [facility] [address], [place] [address]- 7607 Sep, [facility] [address], [place] [address]- 7376 Sep, [facility] [address], [place] [address]- 7146 Aug, [facility] [address], [place] [address]- 5706 Aug, [facility] [address], [place] [address]- 3925 Aug, [facility] [address], [place] [address]- 4886 Jul, [facility] [address], [place] [address]- 0484 Jul, [facility] [address], [place] [address]- 7810 Jun, [facility] [address], [place] [address]- 9664 Jun, [facility] [id number] [address]- 3800 May, [facility] [id number] [address]- 1298 Apr, [facility] [id number] [address]- 2616 Apr, IMMUNIZATIONS No Known Immunizations SOCIAL HISTORY Never Assessed REASON FOR VISIT Establish Care-NOHEMI Sheets PLAN OF CARE Activity Details Follow Up 3 Months with Amanda castro Reason: VITAL SIGNS Height 65 in 2018-01-04 Weight 299.7 lbs 2018-01-04 Temperature 98.4 degrees Fahrenheit 2018-01-04 Heart Rate 72 bpm 2018-01-04 Respiratory Rate 18 2018-01-04 BMI 49.87 kg/m2 2018-01-04 Blood pressure systolic 130 mmHg 2018-01-04 Blood pressure diastolic 86 mmHg 2018-01-04 MEDICATIONS Medication Instructions Dosage Frequency Start Date [...] to dissolve 8h Jul, 10 days Not-Taking Wellbutrin XL 150 MG Orally Once a day 1 tablet in the morning 24h November, 30 days Active Omeprazole 20MG Orally Once a day 1 capsule 24h Active Singulair 10 mg Orally Once a day 1 tablet in the evening 24h Active RESULTS No Results PROCEDURES Procedure Date Ordered Result Body [facility] Hemoglobin Test Send Out 0 dollar January 04, 2018 [facility] VISIT ESTABLISHED PATIENT January 04, 2018 VENIPLAURA, ROUTINE* January 04, 2018 INSTRUCTIONS MEDICATIONS ADMINISTERED No Known Medications MEDICAL (GENERAL) HISTORY Type Description Date Medical History GERD Surgical History cholecystectomy 2013 Hospitalization History ED [place]- Chest Pain 08/26/2017 Hospitalization History Hospital, UTI/Septic 02/20/18 Hospitalization History viral infection 03/07/18
--- OUTSIDE RECORDS SUMMARY | 2018-08-01 22:54 | XMS REPORT ---
Author Author JOAO KULKARNI [facility] Address [address] [place] [address] Care Team Providers Care Tile Mason Name Role Phone JOAO KULKARNI Unavailable PROBLEMS Type Condition ICD9-CM Code VIK20-ZA Code Onset Dates Condition Status SNOMED Code Problem Encounter for long-term (current) use of other medications V58.69 Active 426068603 Problem Major depressive disorder, recurrent episode, mild 296.31 Active 90913876 Problem Wheezing 786.07 Active 48266818 Problem Obsessive compulsive disorder F42 Active 710001853 Problem Unspecified otalgia 388.70 Active 56767071 Problem Major depression, recurrent F33.9 Active 20458847 Problem Morbid (severe) obesity due to excess calories E66.01 Active 57643080034333 Problem Major depressive disorder, recurrent episode, in partial remission F33.41 Active 66112039 Problem Altered mental status, unspecified altered mental status type R41.82 Active 090656975 Problem Coarse tremors G25.2 Active 69804256 Problem Moderate mental retardation 318.0 Active 64870071 Problem Dysfunction of Eustachian tube 381.81 Active 67734758 Problem Acute suppurative otitis media without spontaneous rupture of eardrum 382.00 Active 38870903 Problem Hyperlipidemia, unspecified hyperlipidemia type E78.5 Active 96367476 Problem Body mass index (BMI) of 40.0-44.9 in adult Z68.41 Active 830945936 Problem Essential tremor G25.0 Active 464220453 Problem MR (mental retardation) F79 Active 438550061 Problem Obsessive-compulsive disorders 300.3 Active 603752270 Problem Generalized anxiety disorder 300.02 Active 00835443 Problem Mild mental retardation 317 Active 61415606 Problem Depressive disorder, not elsewhere classified 311 Active 73223439 Problem Unspecified episodic mood disorder 296.90 Active 991712715 Problem Major depressive disorder, recurrent episode, moderate 296.32 Active 44612091 Problem Anxiety state, unspecified 300.00 Active 642365246 Problem Unspecified psychosis 298.9 Active 67849042 ALLERGIES No Known Allergies ENCOUNTERS Encounter Location Date Diagnosis [facility] [place] [address] [address] Apr, [facility] [place] [address] [address] Apr, [facility] [place] [address] [address] Mar, Altered mental status, unspecified altered mental status type R41.82 ; Tachycardia R00.0 ; Acute cystitis without hematuria N30.00 and Bacteremia R78.81 [facility] [place] [address] [address] Mar, [facility] [place] [address] [address] Mar, [facility] [place] [address] [address]- [address] Feb, [facility] [place] [address] [address]- [address] Feb, Dysuria R30.0 [facility] [place] [address] [address] Feb, Dysuria R30.0 ; Acute cystitis without hematuria N30.00 and Tachycardia R00.0 [facility] [id number] [place] [address] Feb, Coarse tremors G25.2 and BMI 45.0-49.9, adult Z68.42 [facility] [place] [address] [address] Jan, [facility] [place] [address] [address]- [address] Jan, Major depressive disorder, recurrent episode, in partial remission F33.41 [facility] [place] [address] [address] Dec, Hyperglycemia R73.9 ; Hyperlipidemia, unspecified hyperlipidemia type E78.5 ; Body mass index (BMI) of 40.0-44.9 in adult Z68.41 and MR (mental retardation) F79 [facility] [place] [id number] [place] [address]26- [address] November, Major depressive disorder, recurrent episode, in partial remission F33.41 ; Mental retardation F79 ; Obsessive compulsive disorder F42 and BMI 50.0-59.9, adult Z68.43 [facility] [place] [id number] [place] [address]- 6706 Oct, [facility] [address] [address] Jul, Acute nasopharyngitis J00 and Vomiting, intractability of vomiting not specified, presence of nausea not specified, unspecified vomiting type R11.10 [place] [address] [address] Jul, BMI 45.0-49.9, adult Z68.42 ; Major depressive disorder, recurrent episode, in partial remission F33.41 ; Mental retardation F79 and Obsessive compulsive disorder F42 [place] [id number] [place] [address] 11533- 8971 Jul, High risk medication use Z79.899 [place] [address] [address]- [address] Jun, Morbid (severe) obesity due to excess calories E66.01 ; Body mass index (BMI) of 40.0-44.9 in adult Z68.41 ; Mental retardation F79 ; Elevated blood pressure reading R03.0 ; Screening for diabetes mellitus (DM) Z13.1 and Screening for lipid disorders Z13.220 [place] [id number] [place] [address]93- 1492 May, High risk medication use Z79.899 ; Major depressive disorder , recurrent episode, in partial remission F33.41 ; Mental retardation F79 and Obsessive compulsive disorder F42 [facility] [place] [address] [address] May, [facility] [place] [address] [address] Apr, [facility] [address] [facility] [address] [id number] [id number] Mar, [facility] [place] [address] [address] Jan, Major depression, recurrent F33.9 ; Mental retardation F79 and Obsessive compulsive disorder F42 [facility] [place] [id number] [place] [address]43- 7862 November, Major depression, recurrent F33.9 and Obsessive compulsive disorder F42 [facility] [place] [address] [address] Sep, [facility] [place] [id number] [place] [address] 67[address]- 7591 Jun, Obsessive compulsive disorder F42 ; Mental retardation F79 and Major depressive disorder, recurrent episode, in partial remission F33.41 [facility] [place] [address] [place] [address]56- 3602 Apr, [facility] [place] [address] [place] [address] 02486- 6425 Apr, Major depression, recurrent F33.9 ; Obsessive compulsive disorder F42 and Mental retardation F79 [facility] [place] [address] [address] 29[address] Jan, [facility] [place] [id number] [place] [address]244- 8010 Jan, Major depression, recurrent F33.9 ; Obsessive compulsive disorder F42 and Mental retardation F79 [facility] [place] [address] [address]- 9568 Dec, [facility] [place] [id number] [place] [address] 01283- 3584 November, [facility] [place] [address], [place] [address] November, [facility] [place] [address], [place] [address]- 9258 Oct, [facility] [place] [address] [address]- 0918 Oct, Obsessive compulsive disorder F42 ; Major depression, recurrent F33.9 and Mental retardation F79 [facility] [place] [address], [place] [address]- [address] Sep, [facility] [place] [id number] [place] [address]- 2036 17 Aug, 2015 [facility] [place] [address] [place] [address] 17135- 0410 Aug, [facility] [place] [id number] [place] [address] 97057- 5754 Aug, [facility] [place] [address] [address]- 0752 Jul, [facility] [place] [address], [place] [address]- 5176 Jul, [facility] [place] [address], [place] [address]- 3904 Jul, [facility] [place] [address], [place] [address]- 9388 Jun, Obsessive compulsive disorder F42 ; Major depression, recurrent F33.9 and Mental retardation F79 [facility] [place] [address] [address] Jun, [facility] [place] [address], [place] [address]- 6262 Jun, [facility] [place] [address] [address]- 0578 May, [facility] [place] [address] [facility] [id number] [address]- [address] 15 Apr, 2015 [facility] [place] [id number] [address] 30 Mar, 2015 Generalized anxiety disorder 300.02 and Major depressive disorder, recurrent episode, mild 296.31 [facility] [place] [id number] [place] [address] 97246- 6355 14 Mar, 2015 [facility] [place] [id number] [address]- 6548 13 Feb, 2015 [facility] [place] [id number] [place] [address] 07994- 1601 13 Jan, 2015 [facility] [place] [id number] [address]- [address] 10 Dec, 2014 Generalized anxiety disorder 300.02 and Depressive disorder , not elsewhere classified 311 [facility] [place] [address], [place] [address]- 2119 14 Oct, 2014 [facility] [place] [address], [place] [address]- 1452 13 Oct, 2014 [facility] [place] [address], [place] [address]- 8947 11 Sep, 2014 [facility] [place] [address], [place] [address]- 7139 Sep, [facility] [place] [address], [place] [address]- 1089 Jun, [facility] [place] [address], [place] [address]- 3125 Jun, [facility] [place] [address] [address] May, [facility] [place] [address] [address] 18 May, 2014 [facility] [place] [id number] [place] [address] [place] [address]- [address] May, [facility] [place] [facility] [address] [id number] [place] [address]- 3422 Apr, [facility] [place] [facility] [address] [id number] [place] [address]- 9324 Apr, [facility] [place] [facility] [address] [id number] [place] [address]- 2916 Feb, [facility] [place] [facility] [address] [id number] [place] [address]- 9745 Jan, [facility] [place] [facility] [address] [id number] [place] [address]- 8957 Jan, [facility] [place] [facility] [address] [id number] [place] [address]- 1538 Dec, [facility] [place] [facility] [address] [id number] [place] [address]- 7652 Dec, [facility] [place] [facility] [address] [id number] [place] [address]- 3169 Oct, [facility] [place] [facility] [address] [id number] [place] [address]- 0713 Oct, [facility] [place] [facility] [address] [id number] [place] [address]- 1284 Oct, [facility] [place] [facility] [address] [id number] [place] [address]- 9607 Oct, [facility] [place] [facility] [address] [id number] [place] [address]- 2222 Sep, [facility] [place] [facility] [address] [id number] [place] [address]- 1046 Sep, [facility] [place] [facility] [address] [id number] [place] [address]- 2552 Sep, [facility] [place] [facility] [address] [id number] [place] [address]- 2416 Sep, [facility] [place] [facility] [address] [id number] [place] [address]- 9669 Aug, [facility] [place] [facility] [address] [id number] [place] [address]- 2600 Aug, [facility] [place] [facility] [address] [id number] [place] [address]- 9888 Aug, [facility] [place] [facility] [address] [id number] [place] [address]- 9744 Aug, [facility] [place] [facility] [address] [id number] [place] [address]- 0545 Jul, [facility] [place] [facility] [address] [id number] [place] [address]- 7110 Jul, [facility] [place] [facility] [address] [id number] [place] [address]- 9796 Jul, [facility] [place] [facility] [address] [id number] [place] [address]- 3134 Jul, [facility] [place] [facility] [address] [id number] [place] [address]- 8836 Jul, [facility] [place] [facility] [address] [id number] [place] [address]- 9631 Jul, [facility] [place] [facility] [address] [id number] [place] [address]- 1979 Apr, [facility] [place] [facility] [address] [id number], [place] [address]- 5664 Apr, [facility] [place] [facility] [address] [id number] [place] [address]- 3840 Apr, [facility] [place] [facility] [address] [id number] [place] [address]- 4706 Apr, [facility] [place] [facility] [address] [id number] [place] [address]- 4001 Apr, [facility] [place] [facility] [address] [id number] [place] [address]- 8513 21 Apr, 2012 [facility] [place] [facility] [address] [id number] [place] [address]- 6459 18 Apr, 2012 [facility] [place] [facility] [address] [id number] [place] [address]9 18 Apr, 2012 [facility] [place] [facility] [address] [id number] [place] [address]- 4235 17 Apr, 2012 [facility] [place] [facility] [address] [id number] [place] [address]- 1020 17 Apr, 2012 [facility] [place] [facility] [address] [id number] [place] [address]- 9741 16 Apr, 2012 [facility] [place] [facility] [address] [id number] [place] [address]- 3208 16 Apr, 2012 [facility] [place] [facility] [address] [id number] [place] [address]- 7587 16 Apr, 2012 [facility] [place] [facility] [address] [id number] [place] [address]- 8862 16 Apr, 2013 [facility] [place] [facility] [address] [id number] [place] [address]- 4204 18 Mar, 2012 [facility] [place] [facility] [address] [id number] [place] [address]- 7077 17 Mar, 2012 [facility] [place] [facility] [address] [id number], [place] [address]- 7365 16 Mar, 2012 [facility] [place] [facility] [address] [id number], [place] [address]- 4567 13 Mar, 2013 [facility] [place] [facility] [address] [id number] [place] [address]- 1390 Feb, [facility] [place] [facility] [address] [id number] [place] [address]- 8764 Feb, [facility] [place] [facility] [address] [id number] [place] [address] Jan, [facility] [place] [facility] [address] [id number] [place] [address]- 9433 Jan, [facility] [address] [id number] [place] [address]- 9772 Jan, [facility] [place] [facility] [address] [id number] [place] [address]- 8127 Jan, [facility] [address] [id number] [place] [address]- 6775 Jan, [facility] [address] [id number] [place] [address]- 6165 Jan, [facility] [address] [id number] [place] [address]- 8447 Jan, [facility] [address] [id number] [place] [address]- 2631 Jan, [facility] [address] [id number] [place] [address]- 3940 Dec, [facility] [address] [id number] [place] [address]- 7714 Dec, [facility] [place] [facility] [address] [id number] [place] [address]- 7272 Dec, [facility] [address] [id number] [place] [address]- 7611 Dec, [facility] [place] [facility] [address] [id number] [place] [address]- 9487 Dec, [facility] [address] [id number] [place] [address]- 3262 Dec, [facility] [place] [facility] [address] [id number] [place] [address]- 4623 Dec, [facility] [place] [facility] [address] [id number] [place] [address]- 3594 Dec, [facility] [place] [facility] [address] [id number] [place] [address]- 5219 Dec, [facility] [address] [id number] [place] [address]- 2912 November, [facility] [address] [id number] [place] [address]- 5397 Oct, [facility] [address] [id number] [place] [address]- 5369 Oct, [facility] [place] [facility] [address] [id number] [place] [address]- 3656 Oct, [facility] [address] [id number] [place] [address]- 0504 Oct, [facility] [address] [id number] [place] [address]- 5254 Oct, [facility] [address] [id number] [place] [address]- 4718 Oct, [facility] [address] [id number] [place] [address]- 9824 Aug, [facility] [address] [id number] [place] [address]- 6394 Aug, [facility] [address] [id number] [place] [address]- 6662 Jul, [facility] [address] [id number] [place] [address]- 4114 Jul, [facility] [place] [facility] [address] [id number] [place] [address]- 2073 Jul, [facility] [place] [facility] [address] [id number] [place] [address]- 2513 Jul, [facility] [place] [facility] [address] [id number] [place] [address]- 4304 Jul, [facility] [place] [facility] [address] [id number] [place] [address]- 4028 Jul, [facility] [place] [facility] [address] [id number] [place] [address]- 0947 Jul, [facility] [address] [id number] [place] [address]- 7062 Jun, [facility] [place] [facility] [address] [id number] [place] [address]47 Jun, [facility] [place] [facility] [address] [id number] [place] 2932 Jun, [facility] [place] [facility] [address] [id number] [place] [address]- 2730 Jun, [facility] [place] [facility] [address] [id number] [place] [address] Jun, [facility] [place] [facility] [address] [id number] [place] [address]- 9614 Apr, [facility] [place] [facility] [address] [id number] [place] [address]- 2651 Apr, [facility] [place] [facility] [address] [id number] [place] [address]- 3450 Apr, [facility] [place] [facility] [address] [id number] [place] [address] Mar, [facility] [place] [facility] [address] [id number] [place] [address] Feb, [facility] [place] [facility] [address] [id number] [place] [address] Jan, [facility] [place] [facility] [address] [id number] [place] [address] Jan, [facility] [place] [facility] [address] [id number] [place] [address] Dec, [facility] [place] [facility] [address] [id number] [place] [address] November, [facility] [place] [facility] [address] [id number] [place] [address] Oct, [facility] [place] [id number] [address] Sep, [facility] [place] [id number] [address] Sep, [facility] [place] [id number], [place] [address] Aug, [facility] [place] [id number] [address] Aug, [facility] [place], [facility] [id number], [place] [address] Aug, [facility] [place], [facility] [id number] [place] [address] Jul, [facility] [place], [facility] [id number] [place] [address] Jul, [facility] [place], [facility] [id number] [place] [address] Jun, [facility] [place], [facility] [id number] [place] [address] Jun, [facility] [place], [facility] [id number], [place] [address] May, [facility] [place], [facility] [id number] [address] Apr, [facility] [place] [id number], [place] [address] Apr, IMMUNIZATIONS No Known Immunizations SOCIAL HISTORY Never Assessed REASON FOR VISIT D/C from [facility] for UTI/Spesis. Father expresses that he thinks Pro is doing better and not experiencing UTI symptoms-awoods PLAN OF CARE Activity Details Follow Up 6 Weeks with Amanda [place], needs to schedule MAWV Reason: VITAL SIGNS Height 65 in 2018-02-28 Weight 291.1 lbs 2018-02-28 Temperature 97.3 degrees Fahrenheit 2018-02-28 Heart Rate 90 bpm 2018-02-28 Respiratory Rate 20 2018-02-28 Oximetry 99 % 2018-02-28 BMI 48.44 kg/m2 2018-02-28 Blood pressure systolic 156 mmHg 2018-02-28 Blood pressure diastolic 86 mmHg 2018-02-28 MEDICATIONS Medication Instructions Dosage Frequency Start Date End Date Duration Status Singulair 10MG Orally Once a day 1 tablet in the evening 24h Active Wellbutrin XL 150 MG Orally Once a day 1 tablet in the morning 24h November, 30 days Active Latuda 60 MG Orally Once a day 1 tablet with food 24h 30 days Active propranolol 20 mg 1 Tablet by Oral route 2 times per day Dec, Active Omeprazole 20MG Orally Once a day 1 capsule 24h Active Clonazepam 0.5 MG Orally as needed Once a day 1 tablet 24h Sep, 30 days Active RESULTS No Results PROCEDURES Procedure Date Ordered Result Body Site [facility] VISIT ESTABLISHED PATIENT Feb 28, 2018 INSTRUCTIONS MEDICATIONS ADMINISTERED No Known Medications MEDICAL (GENERAL) HISTORY Type Description Date Medical History GERD Surgical History cholecystectomy 2013 Hospitalization History ED [place]- Chest Pain 08/26/2017 Hospitalization History Hospital, UTI/Septic 02/20/18 Hospitalization History viral infection 03/07/18
--- OUTSIDE RECORDS SUMMARY | 2018-08-01 22:55 | XMS REPORT ---
Author Author JOAO KULKARNI [facility] Address [address] [place] [address] Care Team Providers Care Uc Architect Name Role Phone JOAO KULKARNI Unavailable PROBLEMS Type Condition ICD9-CM Code HBT05-NI Code Onset Dates Condition Status SNOMED Code Problem Encounter for long-term (current) use of other medications V58.69 Active 508840832 Problem Major depressive disorder, recurrent episode, mild 296.31 Active 65978878 Problem Wheezing 786.07 Active 24956642 Problem Obsessive compulsive disorder F42 Active 355274982 Problem Unspecified otalgia 388.70 Active 51606290 Problem Major depression, recurrent F33.9 Active 20536305 Problem Morbid (severe) obesity due to excess calories E66.01 Active 52116071477071 Problem Major depressive disorder, recurrent episode, in partial remission F33.41 Active 34856135 Problem Altered mental status, unspecified altered mental status type R41.82 Active 399893924 Problem Coarse tremors G25.2 Active 50419518 Problem Moderate mental retardation 318.0 Active 72558947 Problem Dysfunction of Eustachian tube 381.81 Active 14999275 Problem Acute suppurative otitis media without spontaneous rupture of eardrum 382.00 Active 25788104 Problem Hyperlipidemia, unspecified hyperlipidemia type E78.5 Active 23467860 Problem Body mass index (BMI) of 40.0-44.9 in adult Z68.41 Active 049192387 Problem Essential tremor G25.0 Active 763765307 Problem MR (mental retardation) F79 Active 328119559 Problem Obsessive-compulsive disorders 300.3 Active 670522061 Problem Generalized anxiety disorder 300.02 Active 61736281 Problem Mild mental retardation 317 Active 05298552 Problem Depressive disorder, not elsewhere classified 311 Active 13958918 Problem Unspecified episodic mood disorder 296.90 Active 020032567 Problem Major depressive disorder, recurrent episode, moderate 296.32 Active 47053793 Problem Anxiety state, unspecified 300.00 Active 855398866 Problem Unspecified psychosis 298.9 Active 51615441 ALLERGIES No Information ENCOUNTERS Encounter Location Date Diagnosis [facility] [id number] [place] [address]20- 9759 Apr, [facility] [id number] [place] [address] 95638- 1254 Apr, [facility] [address] [address]- [address] Mar, Altered mental status, unspecified altered mental status type R41.82 ; Tachycardia R00.0 ; Acute cystitis without hematuria N30.00 and Bacteremia R78.81 [facility] [address] [address]56- 5827 Mar, [facility] [address] 95283- 1884 Mar, [facility] [address] 89389- 3762 Feb, [facility] [id number] [place] [address] 40583- 6095 Feb, Dysuria R30.0 [facility] [id number] [place] [address] 91067- 1106 Feb, Dysuria R30.0 ; Acute cystitis without hematuria N30.00 and Tachycardia R00.0 [facility] [id number] [place] [address] 94945 -4170 Feb, Coarse tremors G25.2 and BMI 45.0-49.9, adult Z68.42 [facility] [id number] [place] [address] 98141- 3274 Jan, [facility] [id number] [place] [address] 26810- 6277 Jan, Major depressive disorder, recurrent episode, in partial remission F33.41 [facility] [id number] [place] [address] 98110- 8696 Dec, Hyperglycemia R73.9 ; Hyperlipidemia, unspecified hyperlipidemia type E78.5 ; Body mass index (BMI) of 40.0-44.9 in adult Z68.41 and MR (mental retardation) F79 [facility] [id number] [place] [address] 89615- 1752 November, Major depressive disorder, recurrent episode, in partial remission F33.41 ; Mental retardation F79 ; Obsessive compulsive disorder F42 and BMI 50.0-59.9, adult Z68.43 [facility] [id number] [place] [address] 10792- 9775 Oct, [facility] [address] [address] -9918 Jul, Acute nasopharyngitis J00 and Vomiting, intractability of vomiting not specified, presence of nausea not specified, unspecified vomiting type R11.10 [place] [facility] [address] 25971- 5378 09 Jul, 2017 BMI 45.0-49.9, adult Z68.42 ; Major depressive disorder, recurrent episode, in partial remission F33.41 ; Mental retardation F79 and Obsessive compulsive disorder F42 [facility] [id number] [place] [address] 28801- 3806 Jul, High risk medication use Z79.899 [address] 25893- 2982 Jun, Morbid (severe) obesity due to excess calories E66.01 ; Body mass index (BMI) of 40.0-44.9 in adult Z68.41 ; Mental retardation F79 ; Elevated blood pressure reading R03.0 ; Screening for diabetes mellitus (DM) Z13.1 and Screening for lipid disorders Z13.220 [facility] [id number] [place] [address] 23915- 3536 May, High risk medication use Z79.899 ; Major depressive disorder , recurrent episode, in partial remission F33.41 ; Mental retardation F79 and Obsessive compulsive disorder F42 [facility] [id number] [address] 2[address] May, [facility] [address] [address] 2067 Apr, [facility] [address] [facility] [address] [id number] [id number] Mar, [facility] [address] [address] 8795 Jan, Major depression, recurrent F33.9 ; Mental retardation F79 and Obsessive compulsive disorder F42 [facility] [address] [place] [address] 33177- 1194 November, Major depression, recurrent F33.9 and Obsessive compulsive disorder F42 [facility] [address] [address]- 7975 Sep, [facility] [id number] [place] [address] 97469- 7999 Jun, Obsessive compulsive disorder F42 ; Mental retardation F79 and Major depressive disorder, recurrent episode, in partial remission F33.41 [facility] [address] [address]- 7137 Apr, [facility] [address] [address]- 8621 Apr, Major depression, recurrent F33.9 ; Obsessive compulsive disorder F42 and Mental retardation F79 [facility] [address] [address]- 8176 Jan, [facility] [address] [place] [address] 18471- 8174 Jan, Major depression, recurrent F33.9 ; Obsessive compulsive disorder F42 and Mental retardation F79 [facility] [address] [address]- 1265 Dec, [facility] [id number] [place] [address] 98528- 6441 November, [facility] [address] [address]- 4660 November, [facility] [address] [address]- 0178 Oct, [facility] [address] [address]- 9473 Oct, Obsessive compulsive disorder F42 ; Major depression, recurrent F33.9 and Mental retardation F79 [facility] [address] [address]- 9854 Sep, [facility] [id number] [place] [address] 72276- 6674 17 Aug, 2015 [facility] [id number] [place] [address] 79996- 8202 Aug, [facility] [address] [place] [address] 19594- 1755 Aug, [facility] [address] [address]- 9838 Jul, [facility] [address], [place] [address]- 5621 Jul, [facility] [address] [address]- 7397 Jul, [facility] [address] [address]- 0510 Jun, Obsessive compulsive disorder F42 ; Major depression, recurrent F33.9 and Mental retardation F79 [facility] [address] [address] Jun, [facility] [address], [place] [address]- 2570 Jun, [facility] [address] [address]- 9893 May, [facility] [id number] [address]- 2436 15 Apr, 2015 [facility] [id number] [place] [address] 006614- 4028 30 Mar, 2015 Generalized anxiety disorder 300.02 and Major depressive disorder, recurrent episode, mild 296.31 [facility] [id number] [place] [address] 41321- 4510 14 Mar, 2015 [facility] [id number] [place] [address] 34068- 2371 13 Feb, 2015 [facility] [id number] [place] [address] 24797- 8835 13 Jan, 2015 [facility] [id number] [place] [address] 96967- 7049 10 Dec, 2014 Generalized anxiety disorder 300.02 and Depressive disorder , not elsewhere classified 311 [facility] [address] [address]- 1646 14 Oct, 2014 [facility] [address] [address]- 0898 13 Oct, 2014 [facility] [address] [place] [address] 68124- 6199 11 Sep, 2014 [facility] [address], [place] [address]- 1826 Sep, [facility] [address] [address]- 5439 Jun, [facility] [address], [place] [address]- 4503 Jun, [facility] [address], [place] [address]- 9792 May, [facility] [address] [address]- 8266 18 May, 2014 [facility] [id number] [place] [address] 47085- 7800 May, [facility] [place] [facility] [address] [id number] [place] [address]- 0454 Apr, [facility] [place] [facility] [address] [id number] [place] [address]- 5266 Apr, [facility] [place] [facility] [address] [facility] [id number] [place] [address]- 8936 Feb, [facility] [place] [facility] [address] [id number] [place] [address]- 3322 Jan, [facility] [place] [facility] [address] [id number] [place] [address]- 8779 Jan, [facility] [place] [facility] [address] [id number] [place] [address]- 3725 Dec, [facility] [place] [facility] [address] [id number] [place] [address]- 9890 Dec, [facility] [place] [facility] [address] [id number] [place] [address]- 5113 Oct, [facility] [place] [facility] [address] [id number] [place] [address]- 2974 Oct, [facility] [place] [facility] [address] [facility] [id number] [place] [address]- 3889 Oct, [facility] [place] [facility] [address] [id number] [place] [address]- 5621 Oct, [facility] [place] [facility] [address] [id number] [address]- 5874 Sep, [facility] [place] [facility] [address] [id number] [place] [address]- 2039 Sep, [facility] [place] [facility] [address] [id number] [place] [address]- 5813 Sep, [facility] [place] [facility] [address] [facility] [id number] [place] [address]- 1850 Sep, [facility] [place] [facility] [address] [id number] [place] [address]- 5666 Aug, [facility] [place] [facility] [address] [id number] [place] [address]- 1603 Aug, [facility] [place] [facility] [address] [id number] [place] [address]- 0257 Aug, [facility] [place] [facility] [address] [id number] [place] [address]- 7205 Aug, [facility] [place] [facility] [address] [id number] [place] [address]- 3600 Jul, [facility] [place] [facility] [address] [id number] [place] [address]- 9357 Jul, [facility] [place] [facility] [address] [id number] [place] [address]- 1419 Jul, [facility] [place] [facility] [address] [id number] [place] [address]- 7522 Jul, [facility] [place] [facility] [address] [id number] [place] [address]- 5261 Jul, [facility] [place] [facility] [address] [id number] [place] [address]- 8150 Jul, [facility] [place] [facility] [address] [id number] [place] [address]- 1769 Apr, [facility] [place] [facility] [address] [id number] [place] [address]- 1991 Apr, [facility] [place] [facility] [address] [id number] [place] [address]- 2807 Apr, [facility] [place] [facility] [address] [id number] [place] [address]- 9915 Apr, [facility] [place] [facility] [address] [id number] [place] [address]- 9904 Apr, [facility] [place] [facility] [address] [id number] [place] [address]- 8353 21 Apr, 2013 [facility] [place] [facility] [address] [id number] [place] [address]- 9392 18 Apr, 2012 [facility] [place] [facility] [address] [id number] [place] [address]- 6087 18 Apr, 2013 [facility] [place] [facility] [address] [id number] [place] [address]- 7536 17 Apr, 2012 [facility] [place] [facility] [address] [id number] [place] 1520 17 Apr, 2012 [facility] [place] [facility] [address] [id number] [place] [address]- 9702 16 Apr, 2012 [facility] [place] [facility] [address] [id number] [place] [address]- 6432 16 Apr, 2012 [facility] [place] [facility] [address] [id number] [place] [address]- 2789 16 Apr, 2013 [facility] [place] [facility] [address] [id number] [place] [address]- 5125 16 Apr, 2013 [facility] [place] [facility] [address] [id number] [place] [address]- 6842 18 Mar, 2013 [facility] [place] [facility] [address] [id number] [place] [address]- 0636 17 Mar, 2013 [facility] [place] [facility] [address] [id number] [place] [address]- 0051 16 Mar, 2012 [facility] [place] [facility] [address] [id number] [place] [address]- 6663 13 Mar, 2013 [facility] [place] [facility] [address] [id number] [place] 1049 Feb, [facility] [place] [facility] [address] [id number] [place] [address]- 3944 Feb, [facility] [place] [facility] [address] [id number] [place] [address]- 3875 Jan, [facility] [place] [facility] [address] [id number] [place] [address]- 7001 Jan, [facility] [address] [id number] [place] [address]- 3346 Jan, [facility] [place] [facility] [address] [id number] [place] [address]- 7082 Jan, [facility] [address] [id number] [place] [address]- 6482 Jan, [facility] [address] [id number] [place] [address]- 9582 Jan, [facility] [address] [id number] [place] [address]- 4349 Jan, [facility] [address] [id number] [place] [address]- 5492 Jan, [facility] [address] [id number] [place] [address]- 0539 Dec, [facility] [address] [id number] [place] [address]- 1703 Dec, [facility] [place] [facility] [address] [id number] [place] [address]- 2863 Dec, [facility] [address] [id number] [place] [address]- 9997 Dec, [facility] [place] [facility] [address] [id number] [place] [address]- 3018 Dec, [facility] [address] [id number] [place] [address]- 5347 Dec, [facility] [place] [facility] [address] [id number] [place] [address]- 1962 Dec, [facility] [place] [facility] [address] [id number] [place] [address]- 9073 Dec, [facility] [place] [facility] [address] [id number] [place] [address]- 0082 Dec, [facility] [address] [id number] [place] [address]- 4368 November, [facility] [address] [id number] [place] [address]- 4361 Oct, [facility] [address] [id number] [place] [address]- 7820 Oct, [facility] [address] [id number] [place] [address]- 8931 Oct, [facility] [address] [id number] [place] [address]- 9269 Oct, [facility] [address] [id number] [place] [address]- 0271 Oct, [facility] [address] [id number] [place] [address]- 1785 Oct, [facility] [address] [id number] [place] [address]- 3270 Aug, [facility] [address] [id number] [place] [address]- 9016 Aug, [facility] [address] [id number] [place] [address]- 7086 Jul, [facility] [address] [id number] [place] [address]- 1591 Jul, [facility] [place] [facility] [address] [id number] [place] [address]- 6281 Jul, [facility] [place] [facility] [address] [id number] [place] [address]- 5915 Jul, [facility] [place] [facility] [address] [id number] [place] [address]- 1853 Jul, [facility] [place] [facility] [address] [id number] [place] [address]- 3329 Jul, [facility] [place] [facility] [address] [id number] [place] [address]- 4363 Jul, [facility] [place] [facility] [address] [id number] [place] [address]- 2987 Jun, [facility] [place] [facility] [address] [id number] [place] 9245 Jun, [facility] [place] [facility] [address] [id number] [place] 6049 Jun, [facility] [place] [facility] [address] [id number] [place] [address]- 0469 Jun, [facility] [place] [facility] [address] [id number] [place] [address]64 Jun, [facility] [place] [facility] [address] [id number] [place] [address]- 6424 Apr, [facility] [place] [facility] [address] [id number] [place] [address]- 1181 Apr, [facility] [place] [facility] [address] [id number] [place] [address]- 1410 Apr, [facility] [place] [facility] [address] [id number] [place] [address]- 6113 Mar, [facility] [place] [facility] [address] [facility] [id number] [place] [address]- 6353 Feb, [facility] [place] [facility] [address] [id number] [place] [address]- 9689 Jan, [facility] [place] [facility] [address] [id number] [place] [address]- 3980 Jan, [facility] [place] [facility] [address] [id number] [place] [address]- 0583 Dec, [facility] [place] [facility] [address] [id number] [place] [address]- 7571 November, [facility] [place] [facility] [address] [facility] [id number] [place] [address]- 8651 Oct, [facility] [place] [facility] [address] [address]- 1902 Sep, [facility] [id number] [address] Sep, [facility] [address] [facility] [id number], [place] [address] Aug, [facility] [id number] [address] Aug, [facility] [address] [facility] [id number] [address] Aug, [facility] [id number] [address] Jul, [facility] [id number] [address] Jul, [facility] [id number] [address] Jun, [facility] [id number] [address] Jun, [facility] [id number] [address] May, [facility] [id number] [address] Apr, [facility] [id number], [place] [address] Apr, IMMUNIZATIONS No Known Immunizations SOCIAL HISTORY Never Assessed REASON FOR VISIT requests appt PLAN OF CARE VITAL SIGNS MEDICATIONS Unknown Medications RESULTS No Results PROCEDURES No Known procedures INSTRUCTIONS MEDICATIONS ADMINISTERED No Known Medications MEDICAL (GENERAL) HISTORY Type Description Date Medical History GERD Surgical History cholecystectomy 2013 Hospitalization History ED [place]- Chest Pain 08/26/2017 Hospitalization History Hospital, UTI/Septic 02/20/18
--- OUTSIDE RECORDS SUMMARY | 2018-08-01 22:58 | XMS REPORT ---
Author Author JOAO KULKARNI [facility] Address [address] [place] [address] Care Team Providers Care Dandy Tender Name Role Phone JOAO KULKARNI Unavailable PROBLEMS Type Condition ICD9-CM Code RRN36-LC Code Onset Dates Condition Status SNOMED Code Problem Coarse tremors G25.2 Active 60171265 Problem Developmental non-verbal 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 Active 119465764 Problem Altered mental status, unspecified altered mental status type R41.82 Active 492673298 Problem Moderate intellectual disabilities F71 Active 76153468 Problem Dementia without behavioral disturbance, unspecified dementia type F03.90 Active 60858618 Problem BMI 40.0-44.9, adult Z68.41 Active 701467775 Problem Obsessive-compulsive disorder, unspecified F42.9 Active 273574878 Problem Constipation, unspecified constipation type K59.00 Active 71364512 Problem Urinary incontinence, nocturnal enuresis N39.44 Active 2607184 Problem Obsessive compulsive disorder F42 Active 811754788 Problem Morbid (severe) obesity due to excess calories E66.01 Active 28054207821499 Problem MR (mental retardation) F79 Active 412230358 Problem Major depression, recurrent F33.9 Active 11915717 Problem Hyperlipidemia, unspecified hyperlipidemia type E78.5 Active 32165549 Problem Major depressive disorder, recurrent episode, in partial remission F33.41 Active 90521642 Problem Essential tremor G25.0 Active 173037576 ALLERGIES No Information ENCOUNTERS Encounter Location Date Diagnosis [facility] [address] [facility] [id number] [address] Jun, [facility] [address] [address] Apr, [facility] [address] [id number] [address] Apr, Dementia without behavioral disturbance, unspecified dementia type F03.90 [address] [id number] [place] [address] 93890- 2023 Apr, [place] [id number] [place] [address] 43334- 2473 Apr, [place] [id number] [place] [address] 40845- 5826 Apr, Moderate intellectual disabilities F71 ; Morbid (severe) obesity due to excess calories E66.01 ; Coarse tremors G25.2 ; Urinary incontinence, nocturnal enuresis N39.44 ; Dementia without behavioral disturbance, unspecified dementia type F03.90 and At risk for falls Z91.81 [place] [id number] [place] [address] 14979- 4251 Apr, Constipation, unspecified constipation type K59.00 ; Urinary incontinence, nocturnal enuresis N39.44 ; MR (mental retardation) F79 and Obsessive-compulsive disorder, unspecified F42.9 [place] [id number] [place] [address] 82351- 7192 Apr, [place] [id number] [place] [address] 16052- 7303 Apr, Altered mental status, unspecified altered mental status type R41.82 ; Obsessive-compulsive disorder, unspecified F42.9 ; Developmental non-verbal 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 ; BMI 40.0-44.9, adult Z68.41 and Recurrent UTI N39.0 [place] [id number] [place] [address] 40411- 7585 Mar, Altered mental status, unspecified altered mental status type R41.82 ; Tachycardia R00.0 ; Acute cystitis without hematuria N30.00 and Bacteremia R78.81 [place] [id number] [place] [address] 74192- 3913 Mar, [place] [id number] [place] [address] 63583- 2452 Mar, [place] [id number] [place] [address] 97691- 7138 Feb, [place] [address] 240[address]- 0618 Feb, Dysuria R30.0 [place] [id number] [place] [address] 75084- 7216 Feb, Dysuria R30.0 ; Acute cystitis without hematuria N30.00 and Tachycardia R00.0 [facility] [id number] [place] [address] 11124 -0689 Feb, Coarse tremors G25.2 and BMI 45.0-49.9, adult Z68.42 [place] [address] 12035- 1784 Jan, [place] [address] 82031- 5346 Jan, Major depressive disorder, recurrent episode, in partial remission F33.41 [place] [id number] [place] [address] 48390- 1002 Dec, Hyperglycemia R73.9 ; Hyperlipidemia, unspecified hyperlipidemia type E78.5 ; Body mass index (BMI) of 40.0-44.9 in adult Z68.41 and MR (mental retardation) F79 [place] [id number] [place] [address] 89387- 4802 November, Major depressive disorder, recurrent episode, in partial remission F33.41 ; Mental retardation F79 ; Obsessive compulsive disorder F42 and BMI 50.0-59.9, adult Z68.43 [place] [id number] [place] [address] 13154- 7235 Oct, [facility] [id number] [place] [address] 25319 -8843 Jul, Acute nasopharyngitis J00 and Vomiting, intractability of vomiting not specified, presence of nausea not specified, unspecified vomiting type R11.10 [place] [address], [place] [address] 8519 Jul, BMI 45.0-49.9, adult Z68.42 ; Major depressive disorder, recurrent episode, in partial remission F33.41 ; Mental retardation F79 and Obsessive compulsive disorder F42 [place] [address], [place] [address]- 4689 Jul, High risk medication use Z79.899 [place] [id number] [place] [address] 93926- 1043 Jun, Morbid (severe) obesity due to excess calories E66.01 ; Body mass index (BMI) of 40.0-44.9 in adult Z68.41 ; Mental retardation F79 ; Elevated blood pressure reading R03.0 ; Screening for diabetes mellitus (DM) Z13.1 and Screening for lipid disorders Z13.220 [place] [id number] [place] [address] 35147- 0782 May, High risk medication use Z79.899 ; Major depressive disorder , recurrent episode, in partial remission F33.41 ; Mental retardation F79 and Obsessive compulsive disorder F42 [place] [id number] [place] [address] 17053- 9645 May, [id number] [place] [address] 52743- 1613 Apr, [address] [id number] [id number] Mar, [id number] [place] [address] 57672- 0976 Jan, Major depression, recurrent F33.9 ; Mental retardation F79 and Obsessive compulsive disorder F42 [place] [id number] [place] [address] 22214- 3696 November, Major depression, recurrent F33.9 and Obsessive compulsive disorder F42 [place] [id number] [place] [address] 36955- 9195 Sep, [facility] [address], [place] [address]- 8019 14 Jun, 2016 Obsessive compulsive disorder F42 ; Mental retardation F79 and Major depressive disorder, recurrent episode, in partial remission F33.41 [facility] [address], [place] [address]- 9343 Apr, [facility] [address], [place] [address]- 4884 Apr, Major depression, recurrent F33.9 ; Obsessive compulsive disorder F42 and Mental retardation F79 [facility] [address], [place] [address]- 6906 Jan, [facility] [address], [place] [address]- 7952 Jan, Major depression, recurrent F33.9 ; Obsessive compulsive disorder F42 and Mental retardation F79 [facility] [address], [place] [address]- 9599 Dec, [facility] [address], [place] [address]- 1578 November, [facility] [address], [place] [address]- 5477 November, [facility] [address], [place] [address]- 7335 Oct, [facility] [address], [place] [address]- 7928 Oct, Obsessive compulsive disorder F42 ; Major depression, recurrent F33.9 and Mental retardation F79 [facility] [address], [place] [address]- 7259 16 Sep, 2015 [facility] [address], [place] [address]- 8407 17 Aug, 2015 [facility] [address], [place] [address]- 0806 15 Aug, 2015 [facility] [address], [place] [address]- 9634 Aug, [facility] [address], [place] [address]- 2524 Jul, [facility] [address], [place] [address]- 2725 Jul, [facility] [id number] [place] [address] 77478- 0028 Jul, [facility] [address], [place] [address]- 4930 Jun, Obsessive compulsive disorder F42 ; Major depression, recurrent F33.9 and Mental retardation F79 [facility] [address], [place] [address]- 6740 Jun, [facility] [id number] [place] [address] 03208- 9357 Jun, [facility] [address], [place] [address]- 3226 May, [facility] [id number] [place] [address] 46109- 7207 15 Apr, 2015 [facility] [address], [place] [address]- 0538 30 Mar, 2015 Generalized anxiety disorder 300.02 and Major depressive disorder, recurrent episode, mild 296.31 [facility] [address], [place] [address]- 6830 14 Mar, 2015 [facility] [address], [place] [address]- 4378 13 Feb, 2015 [facility] [address], [place] [address]- 7490 13 Jan, 2015 [facility] [address], [place] [address]- 3632 10 Dec, 2014 Generalized anxiety disorder 300.02 and Depressive disorder , not elsewhere classified 311 [facility] [address] [id number] [place] [address]- 6925 14 Oct, 2014 [facility] [place] [facility] [address] [id number] [place] [address]- 9358 Oct, [facility] [place] [facility] [address] [id number] [place] [address]- 5570 Sep, [facility] [place] [facility] [address] [id number] [place] [address], [place] [address]- 6291 Sep, [facility] [place] [facility] [address] [id number] [place] [address]- 3411 Jun, [facility] [place] [facility] [address] [id number] [place] [address]- 8725 Jun, [facility] [place] [facility] [address] [id number] [place] [address]- 1400 May, [facility] [place] [facility] [address] [id number] [place] [address]- 3973 May, [facility] [place] [facility] [address] [id number] [place] [address]- 4436 May, [facility] [place] [facility] [address] [id number] [place] [address]- 9054 Apr, [facility] [place] [facility] [address] [id number] [place] [address]- 9170 Apr, [facility] [place] [facility] [address] [id number] [place] [address]- 3934 Feb, [facility] [place] [facility] [address] [id number] [place] 2161 Jan, [facility] [place] [facility] [address] [id number] [place] [address]- 5066 Jan, [facility] [place] [facility] [address] [id number] [place] [address]- 2031 Dec, [facility] [place] [facility] [address] [id number], [place] [address]- 3269 Dec, [facility] [address] [id number] [place] [address]- 0536 Oct, [facility] [place] [facility] [address] [id number] [place] [address]- 8637 Oct, [facility] [place] [facility] [address] [id number] [place] [address]- 8981 Oct, [facility] [place] [facility] [address] [id number] [place] [address]- 7489 Oct, [facility] [place] [facility] [address] [id number] [place] [address]- 9480 Sep, [facility] [place] [facility] [address] [id number] [place] [address]- 2385 Sep, [facility] [place] [facility] [address] [id number] [place] [address]- 0953 Sep, [facility] [place] [facility] [address] [id number] [place] [address]- 7469 Sep, [facility] [place] [facility] [address] [id number] [place] [address]- 4024 Aug, [facility] [place] [facility] [address] [id number] [place] [address]- 8184 Aug, [facility] [place] [facility] [address] [id number] [place] [address]- 1562 Aug, [facility] [place] [facility] [address] [id number], [place] [address]- 2493 Aug, [facility] [place] [facility] [address] [id number] [place] [address]- 3108 Jul, [facility] [place] [facility] [address] [id number] [place] [address]- 8723 Jul, [facility] [place] [facility] [address] [id number], [place] [address]- 4806 Jul, [facility] [place] [facility] [address] [id number] [place] [address]- 1706 Jul, [facility] [place] [facility] [address] [id number] [place] [address]- 6817 Jul, [facility] [place] [facility] [address] [id number] [place] [address]- 6291 Jul, [facility] [place] [facility] [address] [id number] [place] [address]- 0074 Apr, [facility] [place] [facility] [address] [id number] [place] [address]- 9209 29 Apr, 2013 [facility] [place] [facility] [address] [id number] [place] [address]- 7074 Apr, [facility] [place] [facility] [address] [id number] [place] [address]- 7567 24 Apr, 2013 [facility] [place] [facility] [address] [id number] [place] [address]- 8468 Apr, [facility] [place] [facility] [address] [id number] [place] [address]- 6459 Apr, [facility] [place] [facility] [address] [id number] [place] [address]- 0697 Apr, [facility] [place] [facility] [address] [id number] [place] [address]- 9202 18 Apr, 2013 [facility] [place] [facility] [address] [id number] [place] [address]- 0224 Apr, [facility] [place] [facility] [address] [id number] [place] [address]- 3652 17 Apr, 2013 [facility] [place] [facility] [address] [id number] [place] [address]- 6294 16 Apr, 2013 [facility] [place] [facility] [address] [id number] [place] 0268 16 Apr, 2013 [facility] [place] [facility] [address] [id number] [place] [address]- 3452 16 Apr, 2013 [facility] [place] [facility] [address] [id number] [place] [address]- 2015 16 Apr, 2013 [facility] [place] [facility] [address] [id number] [place] [address]- 2025 18 Mar, 2013 [facility] [place] [facility] [address] [id number] [place] [address]- 7926 17 Mar, 2013 [facility] [place] [facility] [address] [id number] [place] [address]- 4249 16 Mar, 2013 [facility] [place] [facility] [address] [id number] [place] [address]- 5501 Mar, [facility] [place] [facility] [address] [id number] [place] [address]- 5505 Feb, [facility] [place] [facility] [address] [id number] [place] [address]- 0824 Feb, [facility] [place] [facility] [address] [id number], [place] [address]- 5668 Jan, [facility] [place] [facility] [address] [id number] [place] [address]- 3739 Jan, [facility] [place] [facility] [address] [id number] [place] [address]- 9689 Jan, [facility] [place] [facility] [address] [id number], [place] [address]- 1105 Jan, [facility] [place] [facility] [address] [id number], [place] [address]- 8248 Jan, [facility] [place] [facility] [address] [id number] [place] [address]- 1494 Jan, [facility] [place] [facility] [address] [id number], [place] [address]- 7938 Jan, [facility] [place] [facility] [address] [id number] [place] [address]- 2549 Jan, [facility] [place] [facility] [address] [id number] [place] [address]- 4195 28 Dec, 2012 [facility] [address] [id number] [place] [address]- 7210 Dec, [facility] [place] [facility] [address] [id number] [place] [address]- 3199 Dec, [facility] [address] [id number] [place] [address]- 6320 Dec, [facility] [place] [facility] [address] [id number] [place] [address]- 9665 Dec, [facility] [address] [id number] [place] [address]- 9751 Dec, [facility] [place] [facility] [address] [id number] [place] [address]- 8876 Dec, [facility] [address] [id number] [place] [address]- 0789 Dec, [facility] [address] [id number] [place] [address]- 0370 17 Dec, 2012 [facility] [place] [facility] [address] [id number] [place] [address]- 5904 November, [facility] [address] [id number] [place] [address]- 8884 30 Oct, 2012 [facility] [place] [facility] [address] [id number] [place] [address]- 2635 30 Oct, 2012 [facility] [place] [facility] [address] [id number] [place] [address]- 1212 22 Oct, 2012 [facility] [place] [facility] [address] [id number] [place] [address]- 5977 19 Oct, 2012 [facility] [place] [facility] [address] [id number] [place] [address]- 2548 11 Oct, 2012 [facility] [place] [facility] [address] [id number] [place] [address]- 5699 10 Oct, 2012 [facility] [place] [facility] [address] [id number] [place] [address]- 8856 08 Aug, 2012 [facility] [address] [id number] [place] [address]- 8472 Aug, [facility] [address] [id number] [place] [address]- 4339 Jul, [facility] [address] [id number] [place] [address]- 8303 Jul, [facility] [address] [id number] [place] [address]- 4728 Jul, [facility] [address] [id number] [place] [address]- 0825 Jul, [facility] [address] [id number] [place] [address]- 9715 Jul, [facility] [address] [id number], [place] [address]- 2267 Jul, [facility] [address] [id number] [place] [address]- 0124 Jul, [facility] [address] [id number] [address]- 7264 Jun, [facility] [address] [id number], [place] [address]- 3253 Jun, [facility] [address] [id number], [place] [address]- 7957 Jun, [facility] [place] [facility] [address] [id number] [place] [address]- 0067 Jun, [facility] [place] [facility] [address] [id number] [place] [address]- 4126 Jun, [facility] [place] [facility] [address] [id number], [place] [address]- 7340 Apr, [facility] [place] [facility] [address] [id number], [place] [address]- 9702 Apr, [facility] [address] [id number] [place] [address]- 0968 Apr, [facility] [place] [facility] [address] [id number] [place] [address]- 4179 Mar, [facility] [place] [facility] [address] [id number] [place] [address]- 8040 Feb, [facility] [place] [facility] [address] [id number] [place] [address]- 6061 Jan, [facility] [place] [facility] [address] [id number] [place] [address]- 7197 Jan, [facility] [place] [facility] [address] [id number] [place] [address]- 3912 Dec, [facility] [address] [id number] [place] [address]- 3758 November, [facility] [place] [facility] [address] [id number] [place] [address]- 6527 Oct, [facility] [address] [id number] [place] [address]- 6431 Sep, [facility] [place] [facility] [address] [facility] [id number] [place] [address]- 6342 Sep, [facility] [place] [facility] [address] [id number] [place] [address]- 7273 Aug, [facility] [place] [facility] [address] [id number] [place] [address]- 5045 Aug, [facility] [place] [facility] [address] [id number] [place] [address]- 6239 Aug, [facility] [place] [facility] [address] [id number] [place] [address]- 7274 Jul, [facility] [place] [facility] [address] [facility] [id number] [place] [address] Jul, [facility] [place] [facility] [address] [facility] [id number], [place] [address] Jun, [facility] [address] [facility] [id number], [place] [address] Jun, [facility] [address] [facility] [id number], [place] [address] May, [facility] [address] [facility] [id number], [place] [address] Apr, [facility] [address] [facility] [id number] [address] Apr, IMMUNIZATIONS No Known Immunizations SOCIAL HISTORY Never Assessed REASON FOR VISIT Requests return call PLAN OF CARE VITAL SIGNS MEDICATIONS Unknown Medications RESULTS No Results PROCEDURES No Known procedures INSTRUCTIONS MEDICATIONS ADMINISTERED No Known Medications MEDICAL (GENERAL) HISTORY Type Description Date Medical History GERD Surgical History cholecystectomy 2013 Hospitalization History ED [place]- Chest Pain 08/26/2017 Hospitalization History Hospital, UTI/Septic 02/20/18 Hospitalization History viral infection 03/07/18
--- OUTSIDE RECORDS SUMMARY | 2018-08-01 22:58 | XMS REPORT ---
Author Author JOAO KULKARNI [facility] Address [address] [place] [address] Care Team Providers Care Account Development Manager Name Role Phone JOAO KULKARNI Unavailable PROBLEMS Type Condition ICD9-CM Code TAL33-EV Code Onset Dates Condition Status SNOMED Code Problem Coarse tremors G25.2 Active 68985480 Problem Developmental non-verbal 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 Active 478538777 Problem Altered mental status, unspecified altered mental status type R41.82 Active 367516274 Problem Moderate intellectual disabilities F71 Active 23112153 Problem Dementia without behavioral disturbance, unspecified dementia type F03.90 Active 88356839 Problem BMI 40.0-44.9, adult Z68.41 Active 100789045 Problem Obsessive-compulsive disorder, unspecified F42.9 Active 231046268 Problem Constipation, unspecified constipation type K59.00 Active 44265530 Problem Urinary incontinence, nocturnal enuresis N39.44 Active 9931785 Problem Obsessive compulsive disorder F42 Active 335587577 Problem Morbid (severe) obesity due to excess calories E66.01 Active 94233698550840 Problem MR (mental retardation) F79 Active 221529645 Problem Major depression, recurrent F33.9 Active 04668810 Problem Hyperlipidemia, unspecified hyperlipidemia type E78.5 Active 03492856 Problem Major depressive disorder, recurrent episode, in partial remission F33.41 Active 46294979 Problem Essential tremor G25.0 Active 985633065 ALLERGIES No Information ENCOUNTERS Encounter Location Date Diagnosis [facility] [id number], [place] [address] Apr, [facility] [address], [place] [address] Apr, Dementia without behavioral disturbance, unspecified dementia type F03.90 [facility] [address] [id number], [place] [address] Apr, [place] [address] [address] [place] [address] 15040- 1472 Apr, [place] [id number] [place] [address] 75443- 1597 Apr, Moderate intellectual disabilities F71 ; Morbid (severe) obesity due to excess calories E66.01 ; Coarse tremors G25.2 ; Urinary incontinence, nocturnal enuresis N39.44 ; Dementia without behavioral disturbance, unspecified dementia type F03.90 and At risk for falls Z91.81 [place] [id number] [place] [address] 26979- 3595 Apr, Constipation, unspecified constipation type K59.00 ; Urinary incontinence, nocturnal enuresis N39.44 ; MR (mental retardation) F79 and Obsessive-compulsive disorder, unspecified F42.9 [place] [place] [id number] [place] [address] 30506- 4559 Apr, [place] [id number] [place] [address] 35977- 5890 Apr, Altered mental status, unspecified altered mental status type R41.82 ; Obsessive-compulsive disorder, unspecified F42.9 ; Developmental non-verbal 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 ; BMI 40.0-44.9, adult Z68.41 and Recurrent UTI N39.0 [place] [address] [place] [address] 75003- 7770 Mar, Altered mental status, unspecified altered mental status type R41.82 ; Tachycardia R00.0 ; Acute cystitis without hematuria N30.00 and Bacteremia R78.81 [place] [address] [place] [address] 25805- 7408 Mar, [place] [id number] [place] [address] 89645- 9307 Mar, [place] [address] [place] [address] 43318- 4279 Feb, [place] [id number] [place] [address] 61302- 1391 Feb, Dysuria R30.0 [place] [address] [address]- [address] Feb, Dysuria R30.0 ; Acute cystitis without hematuria N30.00 and Tachycardia R00.0 [facility] [place] [address] [address] Feb, Coarse tremors G25.2 and BMI 45.0-49.9, adult Z68.42 [place] [address] [address]- 5161 Jan, [place] [address] [address]- [address] Jan, Major depressive disorder, recurrent episode, in partial remission F33.41 [place] [address] [address]- [address] Dec, Hyperglycemia R73.9 ; Hyperlipidemia, unspecified hyperlipidemia type E78.5 ; Body mass index (BMI) of 40.0-44.9 in adult Z68.41 and MR (mental retardation) F79 [place] [address] [address]- 0308 November, Major depressive disorder, recurrent episode, in partial remission F33.41 ; Mental retardation F79 ; Obsessive compulsive disorder F42 and BMI 50.0-59.9, adult Z68.43 [place] [id number] [place] [address] 72524- 2625 Oct, [facility] [address] [address] Jul, Acute nasopharyngitis J00 and Vomiting, intractability of vomiting not specified, presence of nausea not specified, unspecified vomiting type R11.10 [place] [address] [address]- [address]254 Jul, BMI 45.0-49.9, adult Z68.42 ; Major depressive disorder, recurrent episode, in partial remission F33.41 ; Mental retardation F79 and Obsessive compulsive disorder F42 [facility] [address], [place] [address] 3[address] Jul, High risk medication use Z79.899 [facility] [address], [place] [address] 7[address] 20 Jun, 2017 Morbid (severe) obesity due to excess calories E66.01 ; Body mass index (BMI) of 40.0-44.9 in adult Z68.41 ; Mental retardation F79 ; Elevated blood pressure reading R03.0 ; Screening for diabetes mellitus (DM) Z13.1 and Screening for lipid disorders Z13.220 [place] [address], [place] [address] 13 May, 2017 High risk medication use Z79.899 ; Major depressive disorder , recurrent episode, in partial remission F33.41 ; Mental retardation F79 and Obsessive compulsive disorder F42 [facility] [address], [place] [address] 64[address] May, [facility] [address], [place] [address] 8879 Apr, [facility] [place] [address] [facility] [id number] [id number] Mar, [facility] [address], [place] [address] Jan, Major depression, recurrent F33.9 ; Mental retardation F79 and Obsessive compulsive disorder F42 [facility] [address], [place] [address] 7149 November, Major depression, recurrent F33.9 and Obsessive compulsive disorder F42 [facility] [address], [place] [address]- 0764 Sep, [facility] [address], [place] [address]- 9843 14 Jun, 2016 Obsessive compulsive disorder F42 ; Mental retardation F79 and Major depressive disorder, recurrent episode, in partial remission F33.41 [facility] [address], [place] [address]- 0515 Apr, [facility] [address], [place] [address]- 7070 Apr, Major depression, recurrent F33.9 ; Obsessive compulsive disorder F42 and Mental retardation F79 [facility] [address], [place] [address]- 7033 Jan, [facility] [id number], [place] [address]- 2270 Jan, Major depression, recurrent F33.9 ; Obsessive compulsive disorder F42 and Mental retardation F79 [facility] [address], [place] [address]- 4421 Dec, [facility] [id number], [place] [address]- 3101 November, [facility] [address], [place] [address]- 4954 November, [facility] [address], [place] [address]- 9766 Oct, [facility] [address], [place] [address]- 2979 Oct, Obsessive compulsive disorder F42 ; Major depression, recurrent F33.9 and Mental retardation F79 [facility] [address], [place] [address]- 0399 Sep, [facility] [address], [place] [address]- 6386 17 Aug, 2015 [facility] [address], [place] [address]- 4958 15 Aug, 2015 [facility] [address], [place] [address]- 2768 Aug, [facility] [address], [place] [address]- 2912 Jul, [facility] [id number] [place] [address] 85195- 3260 Jul, [facility] [address], [place] [address]- 1570 Jul, [facility] [id number] [place] [address] 82026- 6186 Jun, Obsessive compulsive disorder F42 ; Major depression, recurrent F33.9 and Mental retardation F79 [facility] [id number] [place] [address] 929843- 2792 Jun, [facility] [id number] [place] [address] 52483- 7880 Jun, [facility] [id number] [place] [address] 11685- 3082 May, [facility] [id number] [place] [address] 01338- 2207 Apr, [facility] [id number] [place] [address] 69357- 8054 30 Mar, 2015 Generalized anxiety disorder 300.02 and Major depressive disorder, recurrent episode, mild 296.31 [facility] [address], [place] [address]- 2733 14 Mar, 2015 [facility] [address] [place] [address] 84450- 0012 Feb, [facility] [address], [place] [address]- 5759 Jan, [facility] [id number] [place] [address] 74238- 3575 10 Dec, 2014 Generalized anxiety disorder 300.02 and Depressive disorder , not elsewhere classified 311 [facility] [address], [place] [address]- 7459 14 Oct, 2014 [facility] [place] [facility] [address] [id number] [place] [address]- 3141 Oct, [facility] [place] [facility] [address] [id number] [place] [address]- 0534 Sep, [facility] [place] [facility] [address] [id number] [place] [address]- 8212 Sep, [facility] [place] [facility] [address] [id number] [place] [address]- 2656 Jun, [facility] [place] [facility] [address] [id number] [place] [address]- 5836 Jun, [facility] [place] [facility] [address] [id number] [place] [address]- 0335 May, [facility] [place] [facility] [address] [id number] [place] [address]- 6392 May, [facility] [place] [facility] [address] [id number] [place] [address]- 2648 May, [facility] [place] [facility] [address] [id number] [place] [address]- 1990 Apr, [facility] [place] [facility] [address] [id number] [place] [address]- 6940 Apr, [facility] [place] [facility] [address] [id number] [place] [address]- 2279 Feb, [facility] [place] [facility] [address] [id number] [place] [address]- 6994 Jan, [facility] [place] [facility] [address] [id number] [place] [address]- 5574 Jan, [facility] [place] [facility] [address] [id number] [place] [address]- 1612 Dec, [facility] [place] [facility] [address] [id number] [place] [address]- 7223 Dec, [facility] [place] [facility] [address] [id number] [place] [address]- 1751 Oct, [facility] [place] [facility] [address] [id number] [place] [address]- 3381 18 Oct, 2013 [facility] [place] [facility] [address] [id number] [place] [address]- 4148 Oct, [facility] [place] [facility] [address] [id number] [place] [address]- 3327 Oct, [facility] [place] [facility] [address] [id number] [place] [address]- 6457 Sep, [facility] [place] [facility] [address] [id number] [place] [address]- 5432 Sep, [facility] [place] [facility] [address] [id number] [place] [address]- 8440 Sep, [facility] [place] [facility] [address] [id number] [place] [address]- 6076 Sep, [facility] [place] [facility] [address] [id number] [place] [address]- 5157 Aug, [facility] [place] [facility] [address] [id number] [place] [address]- 9969 Aug, [facility] [place] [facility] [address] [id number] [place] [address]- 2619 Aug, [facility] [place] [facility] [address] [id number] [place] [address]- 2724 Aug, [facility] [place] [facility] [address] [id number], [place] [address]- 8980 Jul, [facility] [place] [facility] [address] [id number] [place] [address]- 3191 Jul, [facility] [place] [facility] [address] [id number] [place] [address]- 8405 Jul, [facility] [place] [facility] [address] [id number] [place] [address]- 2880 Jul, [facility] [place] [facility] [address] [id number] [place] [address]- 9500 Jul, [facility] [place] [facility] [address] [id number] [place] [address]- 1538 Jul, [facility] [place] [facility] [address] [id number] [place] [address]- 4583 Apr, [facility] [place] [facility] [address] [id number] [place] [address]- 8220 Apr, [facility] [place] [facility] [address] [id number] [place] [address]- 3609 Apr, [facility] [place] [facility] [address] [id number] [place] [address]- 2792 24 Apr, 2013 [facility] [place] [facility] [address] [id number] [place] [address]- 1321 Apr, [facility] [place] [facility] [address] [id number] [place] [address]- 9392 Apr, [facility] [place] [facility] [address] [id number] [place] [address]- 9155 Apr, [facility] [place] [facility] [address] [id number] [place] [address]- 6636 18 Apr, 2013 [facility] [place] [facility] [address] [id number] [place] [address]- 7522 17 Apr, 2013 [facility] [place] [facility] [address] [id number] [place] [address]- 6011 17 Apr, 2013 [facility] [place] [facility] [address] [id number] [place] [address]- 5938 16 Apr, 2013 [facility] [place] [facility] [address] [id number] [place] [address]- 5797 16 Apr, 2013 [facility] [place] [facility] [address] [id number] [place] [address]- 2432 16 Apr, 2013 [facility] [place] [facility] [address] [id number] [place] [address]- 5099 16 Apr, 2013 [facility] [place] [facility] [address] [id number] [place] [address]- 6874 18 Mar, 2013 [facility] [place] [facility] [address] [id number] [place] [address]- 9864 17 Mar, 2013 [facility] [place] [facility] [address] [id number] [place] [address]- 0583 16 Mar, 2013 [facility] [place] [facility] [address] [id number] [place] [address]- 1743 13 Mar, 2013 [facility] [place] [facility] [address] [id number] [place] [address]- 0209 Feb, [facility] [place] [facility] [address] [id number] [place] [address]- 5381 Feb, [facility] [place] [facility] [address] [id number] [place] [address]- 3905 Jan, [facility] [place] [facility] [address] [id number] [place] [address]- 1812 Jan, [facility] [place] [facility] [address] [id number] [place] [address]- 2562 Jan, [facility] [place] [facility] [address] [id number] [place] [address]- 8664 Jan, [facility] [place] [facility] [address] [id number], [place] [address]- 1045 Jan, [facility] [place] [facility] [address] [id number], [place] [address]- 4819 Jan, [facility] [place] [facility] [address] [id number] [place] [address]- 6875 Jan, [facility] [place] [facility] [address] [id number], [place] [address]- 8206 Jan, [facility] [place] [facility] [address] [id number] [place] [address]- 6758 Dec, [facility] [place] [facility] [address] [id number] [place] [address]- 3475 27 Dec, 2012 [facility] [address] [id number] [place] [address]- 6488 Dec, [facility] [place] [facility] [address] [id number] [place] [address]- 8843 Dec, [facility] [address] [id number] [place] [address]- 8688 Dec, [facility] [place] [facility] [address] [id number] [place] [address]- 1175 Dec, [facility] [address] [id number] [place] [address]- 5604 Dec, [facility] [place] [facility] [address] [id number] [place] [address]- 7308 Dec, [facility] [address] [id number] [place] [address]- 9512 Dec, [facility] [address] [id number] [place] [address]- 8415 November, [facility] [place] [facility] [address] [id number] [place] [address]- 0530 30 Oct, 2012 [facility] [address] [id number] [place] [address]- 2081 30 Oct, 2012 [facility] [place] [facility] [address] [id number] [place] [address]- 5126 Oct, [facility] [place] [facility] [address] [id number] [place] [address]- 0076 Oct, [facility] [place] [facility] [address] [id number] [place] [address]- 2412 Oct, [facility] [place] [facility] [address] [id number] [place] [address]- 7207 10 Oct, 2012 [facility] [place] [facility] [address] [id number] [place] [address]- 1528 08 Aug, 2012 [facility] [place] [facility] [address] [id number] [place] [address]- 0937 Aug, [facility] [place] [facility] [address] [id number] [place] [address]- 3542 Jul, [facility] [place] [facility] [address] [id number] [place] [address]- 2673 Jul, [facility] [place] [facility] [address] [id number] [place] [address]- 8435 Jul, [facility] [address] [id number] [place] [address]- 8705 Jul, [facility] [place] [facility] [address] [id number] [place] [address]- 5932 Jul, [facility] [address] [id number] [place] [address]- 7755 Jul, [facility] [address] [id number] [place] [address]- 6462 Jul, [facility] [place] [facility] [address] [id number] [place] [address]- 9885 Jun, [facility] [address] [id number], [place] [address]- 1465 Jun, [facility] [place] [facility] [address] [id number], [place] [address]- 4183 Jun, [facility] [place] [facility] [address] [id number], [place] [address]- 1987 Jun, [facility] [place] [facility] [address] [id number] [place] [address]- 1784 Jun, [facility] [place] [facility] [address] [id number], [place] [address]- 1355 Apr, [facility] [place] [facility] [address] [id number], [place] [address]- 9381 Apr, [facility] [place] [facility] [address] [id number], [place] [address]- 6199 Apr, [facility] [address] [id number] [place] [address]- 0247 Mar, [facility] [place] [facility] [address] [id number] [place] [address]- 4615 Feb, [facility] [place] [facility] [address] [id number] [place] [address]- 5624 Jan, [facility] [place] [facility] [address] [id number] [place] [address]- 8258 Jan, [facility] [address] [id number] [place] [address]- 2173 Dec, [facility] [place] [facility] [address] [id number] [place] [address]- 3555 November, [facility] [id number] [place] [address]- 0976 Oct, [facility] [place] [facility] [address] [id number] [place] [address]- 5816 Sep, [facility] [address] [id number] [place] [address] Sep, [facility] [place] [facility] [address] [facility] [id number] [place] [address] Aug, [facility] [place] [facility] [address] [id number] [place] [address] Aug, [facility] [place] [facility] [address] [facility] [id number] [place] [address] Aug, [facility] [place] [facility] [address] [id number] [place] [address] Jul, [facility] [place] [facility] [address] [id number] [place] [address] Jul, [facility] [place] [facility] [address] [id number] [address] Jun, [facility] [place] [facility] [address] [facility] [id number] [place] [address] Jun, [facility] [address] [facility] [id number], [place] [address] May, [facility] [address] [facility] [id number], [place] [address] Apr, [facility] [address] [facility] [id number], [place] [address] Apr, IMMUNIZATIONS No Known Immunizations SOCIAL HISTORY Never Assessed REASON FOR VISIT FYI-Physical Therapy PLAN OF CARE VITAL SIGNS MEDICATIONS Unknown Medications RESULTS No Results PROCEDURES No Known procedures INSTRUCTIONS MEDICATIONS ADMINISTERED No Known Medications MEDICAL (GENERAL) HISTORY Type Description Date Medical History GERD Surgical History cholecystectomy 2013 Hospitalization History ED [place]- Chest Pain 08/26/2017 Hospitalization History Hospital, UTI/Septic 02/20/18 Hospitalization History viral infection 03/07/18
--- OUTSIDE RECORDS SUMMARY | 2018-08-01 22:59 | XMS REPORT ---
Author Author JOAO KULKARNI [facility] Address [address] [place] [address] Care Team Providers Care Customer Experience Professional Name Role Phone JOAO KULKARNI Unavailable PROBLEMS Type Condition ICD9-CM Code IBO12-OF Code Onset Dates Condition Status SNOMED Code Problem Wheezing 786.07 Active 17082628 Problem Encounter for long-term (current) use of other medications V58.69 Active 911003297 Problem Unspecified otalgia 388.70 Active 54670775 Problem Acute suppurative otitis media without spontaneous rupture of eardrum 382.00 Active 49830968 Problem Dysfunction of Eustachian tube 381.81 Active 08636560 Problem Moderate mental retardation 318.0 Active 10352265 Problem Mild mental retardation 317 Active 10408506 Problem Hyperlipidemia, unspecified hyperlipidemia type E78.5 Active 45935982 Problem Depressive disorder, not elsewhere classified 311 Active 59036013 Problem Essential tremor G25.0 Active 549516680 Problem Obsessive-compulsive disorders 300.3 Active 750780208 Problem Coarse tremors G25.2 Active 17791438 Problem Developmental non-verbal 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 Active 669616756 Problem Altered mental status, unspecified altered mental status type R41.82 Active 728212932 Problem Moderate intellectual disabilities F71 Active 73592733 Problem Dementia without behavioral disturbance, unspecified dementia type F03.90 Active 09765740 Problem Unspecified psychosis 298.9 Active 99482218 Problem Anxiety state, unspecified 300.00 Active 036149633 Problem Generalized anxiety disorder 300.02 Active 75636327 Problem BMI 40.0-44.9, adult Z68.41 Active 112058255 Problem Obsessive-compulsive disorder, unspecified F42.9 Active 654200837 Problem Constipation, unspecified constipation type K59.00 Active 02553407 Problem Urinary incontinence, nocturnal enuresis N39.44 Active 1883989 Problem Major depressive disorder, recurrent episode, mild 296.31 Active 46665512 Problem Obsessive compulsive disorder F42 Active 834400230 Problem Unspecified episodic mood disorder 296.90 Active 211413126 Problem Major depressive disorder, recurrent episode, moderate 296.32 Active 09149531 Problem Morbid (severe) obesity due to excess calories E66.01 Active [id number] Problem MR (mental retardation) F79 Active 747354293 Problem Major depression, recurrent F33.9 Active 74766015 Problem Major depressive disorder, recurrent episode, in partial remission F33.41 Active 81404902 ALLERGIES No Information ENCOUNTERS Encounter Location Date Diagnosis [place] [id number] [place] [address] Apr, [address] [address] Apr, Moderate intellectual disabilities F71 ; Morbid (severe) obesity due to excess calories E66.01 ; Coarse tremors G25.2 ; Urinary incontinence, nocturnal enuresis N39.44 ; Dementia without behavioral disturbance, unspecified dementia type F03.90 and At risk for falls Z91.81 [place] [id number] [place] [address] 80385- 2463 Apr, Constipation, unspecified constipation type K59.00 ; Urinary incontinence, nocturnal enuresis N39.44 ; MR (mental retardation) F79 and Obsessive-compulsive disorder, unspecified F42.9 [place] [id number] [place] [address] 46283- 4697 Apr, [place] [id number] [place] [address] 65389- 1877 Apr, Altered mental status, unspecified altered mental status type R41.82 ; Obsessive-compulsive disorder, unspecified F42.9 ; Developmental non-verbal 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 ; BMI 40.0-44.9, adult Z68.41 and Recurrent UTI N39.0 [place] [id number] [place] [address] 78107- 8084 Mar, Altered mental status, unspecified altered mental status type R41.82 ; Tachycardia R00.0 ; Acute cystitis without hematuria N30.00 and Bacteremia R78.[address] [id number] [address] Mar, [place] [id number] [place] [address] 21037- 5120 Mar, [facility] [address], [place] [address] Feb, [place] [id number] [place] [address] 31774- 5879 Feb, Dysuria R30.0 [place] [id number] [place] [address] 23267- 4539 Feb, Dysuria R30.0 ; Acute cystitis without hematuria N30.00 and Tachycardia R00.0 [facility] [place] [id number] [place] [address] 13177 -8092 Feb, Coarse tremors G25.2 and BMI 45.0-49.9, adult Z68.42 [place] [id number] [place] [address] 47270- 5308 Jan, [place] [id number] [place] [address] 54558- 6037 Jan, Major depressive disorder, recurrent episode, in partial remission F33.41 [place] [id number] [place] [address] 10179- 1643 Dec, Hyperglycemia R73.9 ; Hyperlipidemia, unspecified hyperlipidemia type E78.5 ; Body mass index (BMI) of 40.0-44.9 in adult Z68.41 and MR (mental retardation) F79 [place] [address], [place] [address] November, Major depressive disorder, recurrent episode, in partial remission F33.41 ; Mental retardation F79 ; Obsessive compulsive disorder F42 and BMI 50.0-59.9, adult Z68.43 [place] [id number] [place] [address] 58932- 9586 Oct, [facility] [id number], [place] [address] Jul, Acute nasopharyngitis J00 and Vomiting, intractability of vomiting not specified, presence of nausea not specified, unspecified vomiting type R11.10 [facility] [id number], [place] [address] Jul, BMI 45.0-49.9, adult Z68.42 ; Major depressive disorder, recurrent episode, in partial remission F33.41 ; Mental retardation F79 and Obsessive compulsive disorder F42 [place] [id number] [place] [address] 75845- 8668 Jul, High risk medication use Z79.899 [place] [address], [place] [address] 6265 Jun, Morbid (severe) obesity due to excess calories E66.01 ; Body mass index (BMI) of 40.0-44.9 in adult Z68.41 ; Mental retardation F79 ; Elevated blood pressure reading R03.0 ; Screening for diabetes mellitus (DM) Z13.1 and Screening for lipid disorders Z13.220 [address] [place] [address] 56525- 6971 May, High risk medication use Z79.899 ; Major depressive disorder , recurrent episode, in partial remission F33.41 ; Mental retardation F79 and Obsessive compulsive disorder F42 [address], [place] [address]- 2539 May, [place] [id number] [address] 39[address] Apr, [facility] [address] [id number] [id number] Mar, [address] [id number], [place] [address] Jan, Major depression, recurrent F33.9 ; Mental retardation F79 and Obsessive compulsive disorder F42 [address], [place] [address] 82[address] November, Major depression, recurrent F33.9 and Obsessive compulsive disorder F42 [facility] [id number] [address] 4[address] Sep, [facility] [address], [place] [address] 3523 Jun, Obsessive compulsive disorder F42 ; Mental retardation F79 and Major depressive disorder, recurrent episode, in partial remission F33.41 [facility] [address], [place] [address]- 9984 Apr, [facility] [id number] [place] [address] 09226- 7661 Apr, Major depression, recurrent F33.9 ; Obsessive compulsive disorder F42 and Mental retardation F79 [facility] [id number] [place] [address] 20798- 5038 Jan, [facility] [address], [place] [address]- 5618 Jan, Major depression, recurrent F33.9 ; Obsessive compulsive disorder F42 and Mental retardation F79 [facility] [address], [place] [address]- 8328 Dec, [facility] [address], [place] [address]- 4511 November, [facility] [address], [place] [address]- 9983 November, [facility] [address], [place] [address]- 3531 Oct, [facility] [address], [place] [address]- 4081 Oct, Obsessive compulsive disorder F42 ; Major depression, recurrent F33.9 and Mental retardation F79 [facility] [address], [place] [address]- 1660 16 Sep, 2015 [facility] [address], [place] [address]- 3325 17 Aug, 2015 [facility] [address] [address]17 15 Aug, 2015 [facility] [address] [address] Aug, [facility] [id number] [place] [address] 48476- 4804 Jul, [facility] [address], [place] [address]- 7006 Jul, [facility] [id number] [place] [address] 85292- 5326 Jul, [facility] [address], [place] [address]- 1882 Jun, Obsessive compulsive disorder F42 ; Major depression, recurrent F33.9 and Mental retardation F79 [facility] [address], [place] [address]- 6310 Jun, [facility] [id number] [address]- 7336 Jun, [facility] [address], [place] [address]- 2592 May, [facility] [address], [place] [address]- 1116 15 Apr, 2015 [facility] [address], [place] [address]- 3247 30 Mar, 2015 Generalized anxiety disorder 300.02 and Major depressive disorder, recurrent episode, mild 296.31 [facility] [address], [place] [address]- 6146 14 Mar, 2015 [facility] [address], [place] [address]- 1904 Feb, [facility] [id number], [place] [address]- 9059 13 Jan, 2015 [facility] [address] [facility] [id number], [place] [address]- 2789 10 Dec, 2014 Generalized anxiety disorder 300.02 and Depressive disorder , not elsewhere classified 311 [facility] [address] [id number] [place] [address] 14 Oct, 2014 [facility] [address] [facility] [id number] [place] [address]- 1520 Oct, [facility] [address] [facility] [id number] [place] [address]- 5117 Sep, [facility] [address] [facility] [id number], [place] [address]- 4767 Sep, [facility] [id number] [place] [address]- 5058 Jun, [facility] [id number], [place] [address]- 8630 Jun, [facility] [place] [facility] [id number], [place] [address]- 4533 May, [facility] [id number], [place] [address]- 0334 May, [facility] [place] [facility] [address] [facility] [id number], [place] [address]- 2039 May, [facility] [place] [facility] [address] [facility] [id number][place] [address]- 7047 Apr, [facility] [place] [facility] [address] [facility] [id number], [place] [address]- 8500 Apr, [facility] [place] [facility] [address] [facility] [id number], [place] [address]- 7666 Feb, [facility] [place] [facility] [address] [facility] [id number], [place] [address]- 4639 Jan, [facility] [place] [facility] [address] [facility] [id number], [place] [address]- 1615 Jan, [facility] [place] [facility] [address] [id number] [place] [address]- 9162 Dec, [facility] [place] [facility] [address] [id number] [place] [address]- 0503 Dec, [facility] [place] [facility] [address] [facility] [id number] [place] [address]- 1709 Oct, [facility] [place] [facility] [address] [id number] [place] [address]- 3587 Oct, [facility] [place] [facility] [address] [id number] [place] [address]- 7562 Oct, [facility] [place] [facility] [address] [facility] [id number] [place] [address]- 8313 Oct, [facility] [place] [facility] [address] [facility] [id number] [place] [address]- 0852 Sep, [facility] [place] [facility] [address] [id number] [place] [address]- 8287 Sep, [facility] [place] [facility] [address] [id number] [place] [address]- 4846 Sep, [facility] [place] [facility] [address] [facility] [id number] [place] [address]- 8727 Sep, [facility] [place] [facility] [address] [id number] [place] [address]- 8839 Aug, [facility] [place] [facility] [address] [id number] [place] [address]- 9455 Aug, [facility] [place] [facility] [address] [id number] [place] [address]- 3750 Aug, [facility] [place] [facility] [address] [id number] [place] [address]- 9379 Aug, [facility] [place] [facility] [address] [facility] [id number], [place] [address]- 8860 Jul, [facility] [place] [facility] [address] [id number] [place] [address]- 1188 Jul, [facility] [place] [facility] [address] [id number] [place] [address]- 5296 Jul, [facility] [place] [facility] [address] [id number] [place] [address]- 7459 Jul, [facility] [place] [facility] [address] [id number] [place] [address]- 7843 Jul, [facility] [place] [facility] [address] [id number] [place] [address]- 7488 Jul, [facility] [place] [facility] [address] [id number] [place] [address]- 7092 Apr, [facility] [place] [facility] [address] [id number] [place] [address]- 5841 Apr, [facility] [place] [facility] [address] [id number] [place] [address]- 8435 Apr, [facility] [place] [facility] [address] [id number] [place] [address]- 4669 Apr, [facility] [place] [facility] [address] [id number] [place] [address]- 5169 Apr, [facility] [place] [facility] [address] [id number] [place] [address]- 3540 Apr, [facility] [place] [facility] [address] [id number] [place] [address]- 8789 Apr, [facility] [place] [facility] [address] [id number] [place] [address]- 2849 Apr, [facility] [place] [facility] [address] [id number] [place] [address]- 1420 Apr, [facility] [place] [facility] [address] [id number] [place] [address]- 6170 Apr, [facility] [place] [facility] [address] [id number] [place] [address]- 2546 16 Apr, 2013 [facility] [place] [facility] [address] [id number] [place] 8641 16 Apr, 2013 [facility] [place] [facility] [address] [id number] [place] [address]- 7995 16 Apr, 2013 [facility] [place] [facility] [address] [id number] [place] [address]- 5502 16 Apr, 2013 [facility] [place] [facility] [address] [id number] [place] [address]- 4293 18 Mar, 2013 [facility] [place] [facility] [address] [id number] [place] [address]- 3283 17 Mar, 2013 [facility] [place] [facility] [address] [id number] [place] [address]- 6940 16 Mar, 2013 [facility] [place] [facility] [address] [id number] [place] [address]- 3111 13 Mar, 2013 [facility] [place] [facility] [address] [id number] [place] [address]- 5300 Feb, [facility] [place] [facility] [address] [id number] [place] [address]- 5792 Feb, [facility] [place] [facility] [address] [id number] [place] [address]- 8804 Jan, [facility] [place] [facility] [address] [id number] [place] [address]- 2928 Jan, [facility] [place] [facility] [address] [id number] [place] [address]- 9417 Jan, [facility] [place] [facility] [address] [id number] [place] [address]- 8073 Jan, [facility] [place] [facility] [address] [id number] [place] [address]- 6795 Jan, [facility] [place] [facility] [address] [id number] [place] 9391 Jan, [facility] [place] [facility] [address] [id number] [place] [address]- 2558 05 Jan, 2013 [facility] [address] [id number] [place] [address]- 6092 Jan, [facility] [address] [id number] [place] [address]- 6833 Dec, [facility] [address] [id number] [place] [address]- 1353 Dec, [facility] [address] [id number] [place] [address]- 0813 Dec, [facility] [address] [id number] [place] [address]- 2356 Dec, [facility] [address] [id number] [place] [address]- 7995 Dec, [facility] [address] [id number] [place] [address]- 4651 Dec, [facility] [address] [id number] [place] [address]- 3572 Dec, [facility] [address] [id number] [place] [address]- 8216 Dec, [facility] [address] [id number] [place] [address]- 4933 Dec, [facility] [address] [id number] [place] [address]- 1098 November, [facility] [address] [id number] [place] [address]- 3824 Oct, [facility] [place] [facility] [address] [id number] [place] [address]- 6241 Oct, [facility] [place] [facility] [address] [id number] [place] [address]- 8347 Oct, [facility] [place] [facility] [address] [id number] [place] [address]- 6483 Oct, [facility] [address] [id number] [place] [address]- 9506 Oct, [facility] [address] [id number] [place] [address]- 4478 Oct, [facility] [address] [id number] [place] [address]- 3851 Aug, [facility] [address] [id number] [place] [address]- 7570 Aug, [facility] [address] [id number] [place] [address]- 9806 Jul, [facility] [address] [id number] [place] [address]- 1625 Jul, [facility] [address] [id number] [place] [address]- 1179 Jul, [facility] [address] [id number] [place] [address]- 1386 Jul, [facility] [address] [id number] [place] [address]- 0393 Jul, [facility] [address] [id number] [place] [address]- 7148 Jul, [facility] [address] [id number] [place] [address]- 8638 Jul, [facility] [address] [id number], [place] [address]- 8629 Jun, [facility] [address] [id number] [place] [address]- 5474 Jun, [facility] [address] [id number] [place] [address]- 8736 Jun, [facility] [place] [facility] [address] [id number] [place] [address]- 7481 Jun, [facility] [address] [id number] [place] [address]- 9714 Jun, [facility] [place] [facility] [address] [id number] [place] [address]- 6694 Apr, [facility] [place] [facility] [address] [id number] [place] 2168 Apr, [facility] [place] [facility] [address] [facility] [id number] [place] [address]- 3186 Apr, [facility] [place] [facility] [address] [id number] [place] [address]- 1680 Mar, [facility] [place] [facility] [address] [id number] [place] [address]- 5946 Feb, [facility] [place] [facility] [address] [id number] [place] [address]- 5446 Jan, [facility] [place] [facility] [address] [id number] [place] [address]- 5328 Jan, [facility] [place] [facility] [address] [id number] [place] [address] Dec, [facility] [place] [facility] [address] [id number] [place] [address] November, [facility] [place] [facility] [address] [facility] [id number] [place] [address] Oct, [facility] [place] [facility] [address] [facility] [id number] [place] [address] Sep, [facility] [place] [facility] [address] [facility] [id number] [place] [address] Sep, [facility] [place] [facility] [address] [id number] [place] [address] Aug, [facility] [place] [facility] [address] [facility] [id number] [place] [address] Aug, [facility] [place] [facility] [address] [facility] [id number] [place] [address] Aug, [facility] [address] [id number] [address] Jul, [facility] [id number] [place] [address] Jul, [facility] [id number] [address] Jun, [facility] [id number] [address] Jun, [facility] [id number] [address] May, [facility] [address] [id number], [place] [address] Apr, [facility] [id number] [place] [address] Apr, IMMUNIZATIONS No Known Immunizations SOCIAL HISTORY Never Assessed REASON FOR VISIT referral PLAN OF CARE VITAL SIGNS MEDICATIONS Unknown Medications RESULTS No Results PROCEDURES No Known procedures INSTRUCTIONS MEDICATIONS ADMINISTERED No Known Medications MEDICAL (GENERAL) HISTORY Type Description Date Medical History GERD Surgical History cholecystectomy 2013 Hospitalization History ED [facility]- Chest Pain 08/26/2017 Hospitalization History Hospital, UTI/Septic 02/20/18 Hospitalization History viral infection 03/07/18
--- OUTSIDE RECORDS SUMMARY | 2018-08-01 22:59 | XMS REPORT ---
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 Name Role Phone JOAO KULKARNI Unavailable PROBLEMS Type Condition ICD9-CM Code QAP45-SE Code Onset Dates Condition Status SNOMED Code Problem Coarse tremors G25.2 Active 64308662 Problem Developmental non-verbal 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 Active 197075469 Problem Altered mental status, unspecified altered mental status type R41.82 Active 234598698 Problem Moderate intellectual disabilities F71 Active 62536569 Problem Dementia without behavioral disturbance, unspecified dementia type F03.90 Active 58782333 Problem BMI 40.0-44.9, adult Z68.41 Active 308686007 Problem Obsessive-compulsive disorder, unspecified F42.9 Active 927161309 Problem Constipation, unspecified constipation type K59.00 Active 40545389 Problem Urinary incontinence, nocturnal enuresis N39.44 Active 3255632 Problem Obsessive compulsive disorder F42 Active 822170160 Problem Morbid (severe) obesity due to excess calories E66.01 Active [id number] Problem MR (mental retardation) F79 Active 223183310 Problem Major depression, recurrent F33.9 Active 43579262 Problem Hyperlipidemia, unspecified hyperlipidemia type E78.5 Active 66850154 Problem Major depressive disorder, recurrent episode, in partial remission F33.41 Active 01914065 Problem Essential tremor G25.0 Active 167575039 ALLERGIES No Information ENCOUNTERS Encounter Location Date Diagnosis [facility] [id number] [address] Apr, [facility] [address] [address] Apr, Dementia without behavioral disturbance, unspecified dementia type F03.90 [facility] [id number] [address] Apr, [place] [id number] [place] [address]- 9316 Apr, [place] [id number] [place] [address]- 1865 Apr, Moderate intellectual disabilities F71 ; Morbid (severe) obesity due to excess calories E66.01 ; Coarse tremors G25.2 ; Urinary incontinence, nocturnal enuresis N39.44 ; Dementia without behavioral disturbance, unspecified dementia type F03.90 and At risk for falls Z91.81 [place] [id number] [place] [address] 9[address]- 6908 Apr, Constipation, unspecified constipation type K59.00 ; Urinary incontinence, nocturnal enuresis N39.44 ; MR (mental retardation) F79 and Obsessive-compulsive disorder, unspecified F42.9 [place] [id number] [place] [address] 9[address]- [address] Apr, [place] [id number] [place] [address] 22372- 4996 Apr, Altered mental status, unspecified altered mental status type R41.82 ; Obsessive-compulsive disorder, unspecified F42.9 ; Developmental non-verbal 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 ; BMI 40.0-44.9, adult Z68.41 and Recurrent UTI N39.0 [place] [id number] [place] [address] 56268- 4098 Mar, Altered mental status, unspecified altered mental status type R41.82 ; Tachycardia R00.0 ; Acute cystitis without hematuria N30.00 and Bacteremia R78.81 [place] [id number] [place] [address]29- 0358 Mar, [place] [id number] [place] [address] 35693- 7800 Mar, [place] [id number] [place] [address] 43475- 0117 Feb, [place] [id number] [place] [address] 56107- 0018 Feb, Dysuria R30.0 [place] [address] [address]- [address] Feb, Dysuria R30.0 ; Acute cystitis without hematuria N30.00 and Tachycardia R00.0 [facility] [place] [address] [address] Feb, Coarse tremors G25.2 and BMI 45.0-49.9, adult Z68.42 [place] [address] [address]- [address] Jan, [place] [address] [address]- 7780 Jan, Major depressive disorder, recurrent episode, in partial remission F33.41 [place] [address] [address]- [address] Dec, Hyperglycemia R73.9 ; Hyperlipidemia, unspecified hyperlipidemia type E78.5 ; Body mass index (BMI) of 40.0-44.9 in adult Z68.41 and MR (mental retardation) F79 [place] [address] [address]- 2263 November, Major depressive disorder, recurrent episode, in partial remission F33.41 ; Mental retardation F79 ; Obsessive compulsive disorder F42 and BMI 50.0-59.9, adult Z68.43 [place] [id number] [place] [address] 12884- 8010 Oct, [facility] [address] [address] Jul, Acute nasopharyngitis J00 and Vomiting, intractability of vomiting not specified, presence of nausea not specified, unspecified vomiting type R11.10 [place] [address] [address]- [address]392 Jul, BMI 45.0-49.9, adult Z68.42 ; Major depressive disorder, recurrent episode, in partial remission F33.41 ; Mental retardation F79 and Obsessive compulsive disorder F42 [facility] [address] [address] 9209 Jul, High risk medication use Z79.899 [facility] [address] [address] 3[address] 20 Jun, 2017 Morbid (severe) obesity due to excess calories E66.01 ; Body mass index (BMI) of 40.0-44.9 in adult Z68.41 ; Mental retardation F79 ; Elevated blood pressure reading R03.0 ; Screening for diabetes mellitus (DM) Z13.1 and Screening for lipid disorders Z13.220 [place] [address] [address] 13 May, 2017 High risk medication use Z79.899 ; Major depressive disorder , recurrent episode, in partial remission F33.41 ; Mental retardation F79 and Obsessive compulsive disorder F42 [facility] [address] [address] 0874 May, [facility] [address] [address] Apr, [facility] [place] [id number] [facility] [id number] [id number] Mar, [facility] [address] [address] Jan, Major depression, recurrent F33.9 ; Mental retardation F79 and Obsessive compulsive disorder F42 [facility] [address] [address]- 0921 November, Major depression, recurrent F33.9 and Obsessive compulsive disorder F42 [facility] [address] [address]- 7359 Sep, [facility] [address] [address] 1935 14 Jun, 2016 Obsessive compulsive disorder F42 ; Mental retardation F79 and Major depressive disorder, recurrent episode, in partial remission F33.41 [facility] [address] [address]- 7393 Apr, [facility] [address] [address]- 9218 Apr, Major depression, recurrent F33.9 ; Obsessive compulsive disorder F42 and Mental retardation F79 [facility] [address] [address]- 6501 Jan, [facility] [id number] [address]- 6441 Jan, Major depression, recurrent F33.9 ; Obsessive compulsive disorder F42 and Mental retardation F79 [facility] [address] [address]- 8149 Dec, [facility] [id number] [address]- 8688 November, [facility] [address] [address]- 9317 November, [facility] [address] [address]- 6196 Oct, [facility] [address] [address]- 3863 Oct, Obsessive compulsive disorder F42 ; Major depression, recurrent F33.9 and Mental retardation F79 [facility] [id number] [address]- 1172 Sep, [facility] [address] [address]- 3086 17 Aug, 2015 [facility] [address] [address]- 8196 15 Aug, 2015 [facility] [address] [address]- 3239 Aug, [facility] [id number] [address]- 8834 Jul, [facility] [id number] [place] [address] 33025- 1369 Jul, [facility] [address] [address]- 4859 Jul, [facility] [id number] [place] [address] 34726- 2387 Jun, Obsessive compulsive disorder F42 ; Major depression, recurrent F33.9 and Mental retardation F79 [facility] [id number] [place] [address] 554909- 4055 Jun, [facility] [id number] [place] [address] 33862- 6207 Jun, [facility] [id number] [place] [address] 84333- 6931 May, [facility] [id number] [place] [address] 27393- 4064 Apr, [facility] [id number] [place] [address] 83031- 8629 30 Mar, 2015 Generalized anxiety disorder 300.02 and Major depressive disorder, recurrent episode, mild 296.31 [facility] [address] [address]- 8528 14 Mar, 2015 [facility] [id number] [place] [address] 44684- 4254 Feb, [facility] [address] [address]- 1382 Jan, [facility] [id number] [place] [address] 72253- 2470 10 Dec, 2014 Generalized anxiety disorder 300.02 and Depressive disorder , not elsewhere classified 311 [facility] [address] [address]- 0071 14 Oct, 2014 [facility] [place] [facility] [address] [id number] [place] [address]- 2181 Oct, [facility] [place] [facility] [address] [id number] [place] [address]- 4528 Sep, [facility] [place] [facility] [address] [id number] [place] [address]- 5870 Sep, [facility] [place] [facility] [address] [id number] [place] [address]- 7714 Jun, [facility] [place] [facility] [address] [id number] [place] [address]- 4200 Jun, [facility] [place] [facility] [address] [id number] [place] [address]- 1923 May, [facility] [place] [facility] [address] [id number] [place] [address]- 6089 May, [facility] [place] [facility] [address] [id number] [place] [address]- 3552 May, [facility] [place] [facility] [address] [id number] [place] [address]- 1257 Apr, [facility] [place] [facility] [address] [id number] [place] [address]- 4829 Apr, [facility] [place] [facility] [address] [id number] [place] [address]- 5630 Feb, [facility] [place] [facility] [address] [id number] [place] [address]- 8965 Jan, [facility] [place] [facility] [address] [id number] [place] [address]- 1105 Jan, [facility] [place] [facility] [address] [id number] [place] [address]- 9951 Dec, [facility] [place] [facility] [address] [id number] [place] [address]- 5780 Dec, [facility] [place] [facility] [address] [id number] [place] [address]- 9198 Oct, [facility] [place] [facility] [address] [id number] [place] [address]- 8841 18 Oct, 2013 [facility] [place] [facility] [address] [id number] [place] [address]- 9670 Oct, [facility] [place] [facility] [address] [id number] [place] [address]- 9911 Oct, [facility] [place] [facility] [address] [id number] [place] [address]- 9066 Sep, [facility] [place] [facility] [address] [id number] [place] [address]- 3345 Sep, [facility] [place] [facility] [address] [id number] [place] [address]- 1508 Sep, [facility] [place] [facility] [address] [id number] [place] [address]- 4739 Sep, [facility] [place] [facility] [address] [id number] [place] [address]- 7894 Aug, [facility] [place] [facility] [address] [id number] [place] [address]- 6729 Aug, [facility] [place] [facility] [address] [id number] [place] [address]- 9500 Aug, [facility] [place] [facility] [address] [id number] [place] [address]- 3822 Aug, [facility] [place] [facility] [address] [id number] [address]- 9205 Jul, [facility] [place] [facility] [address] [id number] [place] [address]- 1258 Jul, [facility] [place] [facility] [address] [id number] [place] [address]- 2389 Jul, [facility] [place] [facility] [address] [id number] [place] [address]- 1495 Jul, [facility] [place] [facility] [address] [id number] [place] [address]- 7837 Jul, [facility] [place] [facility] [address] [id number] [place] [address]- 4541 Jul, [facility] [place] [facility] [address] [id number] [place] [address]- 2481 Apr, [facility] [place] [facility] [address] [id number] [place] [address]- 8093 Apr, [facility] [place] [facility] [address] [id number] [place] [address]- 0661 Apr, [facility] [place] [facility] [address] [id number] [place] [address]- 1244 24 Apr, 2013 [facility] [place] [facility] [address] [id number] [place] [address]- 1504 Apr, [facility] [place] [facility] [address] [id number] [place] [address]- 2657 Apr, [facility] [place] [facility] [address] [id number] [place] [address]- 2412 Apr, [facility] [place] [facility] [address] [id number] [place] [address]- 1095 18 Apr, 2013 [facility] [place] [facility] [address] [id number] [place] [address]- 1469 17 Apr, 2013 [facility] [place] [facility] [address] [id number] [place] [address]- 6134 17 Apr, 2013 [facility] [place] [facility] [address] [id number] [place] [address]- 0755 16 Apr, 2013 [facility] [place] [facility] [address] [id number] [place] [address]- 7528 16 Apr, 2013 [facility] [place] [facility] [address] [id number] [place] [address]- 1581 16 Apr, 2013 [facility] [place] [facility] [address] [id number] [place] [address]- 3254 16 Apr, 2013 [facility] [place] [facility] [address] [id number] [place] [address]- 8647 18 Mar, 2013 [facility] [place] [facility] [address] [id number] [place] [address]- 5571 17 Mar, 2013 [facility] [place] [facility] [address] [id number] [place] [address]- 4007 16 Mar, 2013 [facility] [place] [facility] [address] [id number] [place] [address]- 2237 13 Mar, 2013 [facility] [place] [facility] [address] [id number] [place] [address]- 0943 Feb, [facility] [place] [facility] [address] [id number] [place] [address]- 9504 Feb, [facility] [place] [facility] [address] [id number] [place] [address]- 0486 Jan, [facility] [place] [facility] [address] [id number] [place] [address]- 1864 Jan, [facility] [place] [facility] [address] [id number] [place] [address]- 2980 Jan, [facility] [place] [facility] [address] [id number] [place] [address]- 5996 Jan, [facility] [place] [facility] [address] [id number] [place] [address]- 5257 Jan, [facility] [place] [facility] [address] [id number] [address]- 2289 Jan, [facility] [place] [facility] [address] [id number] [place] [address]- 2698 Jan, [facility] [place] [facility] [address] [id number] [place] [address]- 1734 Jan, [facility] [place] [facility] [address] [id number] [place] [address]- 3235 Dec, [facility] [place] [facility] [address] [id number] [place] [address]- 9386 27 Dec, 2012 [facility] [address] [id number] [place] [address]- 2515 Dec, [facility] [place] [facility] [address] [id number] [place] [address]- 2334 Dec, [facility] [address] [id number] [place] [address]- 8557 Dec, [facility] [place] [facility] [address] [id number] [place] [address]- 1851 Dec, [facility] [address] [id number] [place] [address]- 2158 Dec, [facility] [place] [facility] [address] [id number] [place] [address]- 2541 Dec, [facility] [address] [id number] [place] [address]- 2861 Dec, [facility] [address] [id number] [place] [address]- 2297 November, [facility] [place] [facility] [address] [id number] [place] [address]- 2173 30 Oct, 2012 [facility] [address] [id number] [place] [address]- 4077 30 Oct, 2012 [facility] [place] [facility] [address] [id number] [place] [address]- 9090 Oct, [facility] [place] [facility] [address] [id number] [place] [address]- 7637 Oct, [facility] [place] [facility] [address] [id number] [place] [address]- 7606 Oct, [facility] [place] [facility] [address] [id number] [place] [address]- 7785 10 Oct, 2012 [facility] [place] [facility] [address] [id number] [place] [address]- 3710 08 Aug, 2012 [facility] [place] [facility] [address] [id number] [place] [address]- 4992 Aug, [facility] [place] [facility] [address] [id number] [place] [address]- 8771 Jul, [facility] [place] [facility] [address] [id number] [place] [address]- 8494 Jul, [facility] [place] [facility] [address] [id number] [place] [address]- 0448 Jul, [facility] [address] [id number] [place] [address]- 2575 Jul, [facility] [place] [facility] [address] [id number] [place] [address]- 7517 Jul, [facility] [address] [id number] [place] [address]- 5188 Jul, [facility] [address] [id number] [place] [address]- 8454 Jul, [facility] [place] [facility] [address] [id number] [place] [address]- 2389 Jun, [facility] [address] [id number] [place] [address]- 1214 Jun, [facility] [place] [facility] [address] [id number] [place] [address]- 8721 Jun, [facility] [place] [facility] [address] [id number] [place] [address]- 1637 Jun, [facility] [place] [facility] [address] [id number] [place] [address]- 9646 Jun, [facility] [place] [facility] [address] [id number] [place] [address]- 2552 Apr, [facility] [place] [facility] [address] [id number] [address]- 1693 Apr, [facility] [place] [facility] [address] [id number] [place] [address]- 4419 Apr, [facility] [address] [id number] [place] [address]- 0387 Mar, [facility] [place] [facility] [address] [id number] [place] [address]- 0859 Feb, [facility] [place] [facility] [address] [id number] [place] [address]- 7019 Jan, [facility] [place] [facility] [address] [id number] [place] [address]- 6704 Jan, [facility] [address] [id number] [place] [address]- 2115 Dec, [facility] [place] [facility] [address] [id number] [place] [address]- 2199 November, [facility] [id number] [place] [address]- 7351 Oct, [facility] [place] [facility] [address] [id number] [place] [address]- 8303 Sep, [facility] [id number] [place] [address]- 8011 Sep, [facility] [place] [facility] [address] [facility] [id number] [place] [address]- 8834 Aug, [facility] [place] [facility] [address] [id number] [place] [address]- 6544 Aug, [facility] [place] [facility] [address] [facility] [id number] [place] [address]- 1498 Aug, [facility] [place] [facility] [address] [id number] [place] [address] Jul, [facility] [place] [facility] [address] [id number] [place] [address] Jul, [facility] [place] [facility] [address] [id number] [address] Jun, [facility] [place] [facility] [address] [facility] [id number] [place] [address] Jun, [facility] [address] [facility] [id number] [place] [address] May, [facility] [address] [facility] [id number] [place] [address] Apr, [facility] [address] [facility] [id number] [place] [address] Apr, IMMUNIZATIONS No Known Immunizations SOCIAL HISTORY Never Assessed REASON FOR VISIT MRI order correction PLAN OF CARE Activity Details Pending Test MRI : Brain w/ and w/o Contrast VITAL SIGNS MEDICATIONS Unknown Medications RESULTS No Results PROCEDURES No Known procedures INSTRUCTIONS MEDICATIONS ADMINISTERED No Known Medications MEDICAL (GENERAL) HISTORY Type Description Date Medical History GERD Surgical History cholecystectomy 2013 Hospitalization History ED [facility]- Chest Pain 08/26/2017 Hospitalization History Hospital, UTI/Septic 02/20/18 Hospitalization History viral infection 03/07/18
--- OUTSIDE RECORDS SUMMARY | 2018-08-01 23:00 | XMS REPORT ---
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 Name Role Phone JOAO KULKARNI Unavailable PROBLEMS Type Condition ICD9-CM Code MCI14-UA Code Onset Dates Condition Status SNOMED Code Problem Wheezing 786.07 Active 76381091 Problem Encounter for long-term (current) use of other medications V58.69 Active 478886556 Problem Unspecified otalgia 388.70 Active 04039654 Problem Acute suppurative otitis media without spontaneous rupture of eardrum 382.00 Active 95343212 Problem Dysfunction of Eustachian tube 381.81 Active 91395370 Problem Moderate mental retardation 318.0 Active 87519751 Problem Mild mental retardation 317 Active 51214971 Problem Hyperlipidemia, unspecified hyperlipidemia type E78.5 Active 82385949 Problem Depressive disorder, not elsewhere classified 311 Active 33382182 Problem Essential tremor G25.0 Active 646400343 Problem Obsessive-compulsive disorders 300.3 Active 625636598 Problem Coarse tremors G25.2 Active 55249905 Problem Developmental non-verbal 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 Active 165173662 Problem Altered mental status, unspecified altered mental status type R41.82 Active 843849688 Problem Moderate intellectual disabilities F71 Active 00676172 Problem Dementia without behavioral disturbance, unspecified dementia type F03.90 Active 13089479 Problem Unspecified psychosis 298.9 Active 51505354 Problem Anxiety state, unspecified 300.00 Active 049127327 Problem Generalized anxiety disorder 300.02 Active 97587512 Problem BMI 40.0-44.9, adult Z68.41 Active 912540131 Problem Obsessive-compulsive disorder, unspecified F42.9 Active 585007249 Problem Constipation, unspecified constipation type K59.00 Active 21965269 Problem Urinary incontinence, nocturnal enuresis N39.44 Active 2509532 Problem Major depressive disorder, recurrent episode, mild 296.31 Active 45202046 Problem Obsessive compulsive disorder F42 Active 925623842 Problem Unspecified episodic mood disorder 296.90 Active 546602388 Problem Major depressive disorder, recurrent episode, moderate 296.32 Active 62134946 Problem Morbid (severe) obesity due to excess calories E66.01 Active [id number] Problem MR (mental retardation) F79 Active 861331871 Problem Major depression, recurrent F33.9 Active 06587768 Problem Major depressive disorder, recurrent episode, in partial remission F33.41 Active 88756289 ALLERGIES No Information ENCOUNTERS Encounter Location Date Diagnosis [place] [id number] [place] [address]- [address]19 Apr, [address] [address] Apr, Moderate intellectual disabilities F71 ; Morbid (severe) obesity due to excess calories E66.01 ; Coarse tremors G25.2 ; Urinary incontinence, nocturnal enuresis N39.44 ; Dementia without behavioral disturbance, unspecified dementia type F03.90 and At risk for falls Z91.81 [place] [id number] [place] [address] 04593- 3101 Apr, Constipation, unspecified constipation type K59.00 ; Urinary incontinence, nocturnal enuresis N39.44 ; MR (mental retardation) F79 and Obsessive-compulsive disorder, unspecified F42.9 [place] [id number] [place] [address] 61170- 5820 Apr, [place] [id number] [place] [address] 92939- 5025 Apr, Altered mental status, unspecified altered mental status type R41.82 ; Obsessive-compulsive disorder, unspecified F42.9 ; Developmental non-verbal 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 ; BMI 40.0-44.9, adult Z68.41 and Recurrent UTI N39.0 [place] [id number] [place] [address] 72172- 3242 Mar, Altered mental status, unspecified altered mental status type R41.82 ; Tachycardia R00.0 ; Acute cystitis without hematuria N30.00 and Bacteremia R78.[address] [id number] [address] Mar, [place] [id number] [place] [address] 97789- 2285 Mar, [facility] [address], [place] [address] Feb, [place] [id number] [place] [address] 46679- 8645 Feb, Dysuria R30.0 [place] [id number] [place] [address] 49029- 7858 Feb, Dysuria R30.0 ; Acute cystitis without hematuria N30.00 and Tachycardia R00.0 [facility] [place] [id number] [place] [address] 76453 -9091 Feb, Coarse tremors G25.2 and BMI 45.0-49.9, adult Z68.42 [place] [id number] [place] [address] 05178- 6661 Jan, [place] [id number] [place] [address] 75257- 1825 Jan, Major depressive disorder, recurrent episode, in partial remission F33.41 [place] [id number] [place] [address] 73645- 4234 Dec, Hyperglycemia R73.9 ; Hyperlipidemia, unspecified hyperlipidemia type E78.5 ; Body mass index (BMI) of 40.0-44.9 in adult Z68.41 and MR (mental retardation) F79 [place] [address], [place] [address] 1186 November, Major depressive disorder, recurrent episode, in partial remission F33.41 ; Mental retardation F79 ; Obsessive compulsive disorder F42 and BMI 50.0-59.9, adult Z68.43 [place] [id number] [place] [address] 39101- 2075 Oct, [facility] [id number] [address] Jul, Acute nasopharyngitis J00 and Vomiting, intractability of vomiting not specified, presence of nausea not specified, unspecified vomiting type R11.10 [facility] [id number] [address] Jul, BMI 45.0-49.9, adult Z68.42 ; Major depressive disorder, recurrent episode, in partial remission F33.41 ; Mental retardation F79 and Obsessive compulsive disorder F42 [place] [id number] [place] [address] 11364- 6003 Jul, High risk medication use Z79.899 [place] [address], [place] [address]- 9252 Jun, Morbid (severe) obesity due to excess calories E66.01 ; Body mass index (BMI) of 40.0-44.9 in adult Z68.41 ; Mental retardation F79 ; Elevated blood pressure reading R03.0 ; Screening for diabetes mellitus (DM) Z13.1 and Screening for lipid disorders Z13.220 [address] [place] [address] 98516- 4319 May, High risk medication use Z79.899 ; Major depressive disorder , recurrent episode, in partial remission F33.41 ; Mental retardation F79 and Obsessive compulsive disorder F42 [address] [address]- 5541 May, [place] [id number] [address]- 50[address] Apr, [facility] [id number] [address] Mar, [address] [id number], [place] [address] 250[address] Jan, Major depression, recurrent F33.9 ; Mental retardation F79 and Obsessive compulsive disorder F42 [address] [address]- 2260 November, Major depression, recurrent F33.9 and Obsessive compulsive disorder F42 [facility] [id number] [address]- 2319 Sep, [facility] [address], [place] [address]- 8656 Jun, Obsessive compulsive disorder F42 ; Mental retardation F79 and Major depressive disorder, recurrent episode, in partial remission F33.41 [facility] [address], [place] [address]- 6739 Apr, [facility] [id number] [place] [address] 18588- 8535 Apr, Major depression, recurrent F33.9 ; Obsessive compulsive disorder F42 and Mental retardation F79 [facility] [address] [place] [address] 33799- 2318 Jan, [facility] [address], [place] [address]- 0612 Jan, Major depression, recurrent F33.9 ; Obsessive compulsive disorder F42 and Mental retardation F79 [facility] [address], [place] [address]- 4790 Dec, [facility] [address], [place] [address]- 4938 November, [facility] [address], [place] [address]- 4007 November, [facility] [address], [place] [address]- 4677 Oct, [facility] [address], [place] [address]- 6816 Oct, Obsessive compulsive disorder F42 ; Major depression, recurrent F33.9 and Mental retardation F79 [facility] [address], [place] [address]- 7024 16 Sep, 2015 [facility] [address], [place] [address]- 8624 17 Aug, 2015 [facility] [address] 115[address] 15 Aug, 2015 [facility] [address] [address] Aug, [facility] [id number] [place] [address] 27082- 1846 Jul, [facility] [address], [place] [address]- 3375 Jul, [facility] [address] [place] [address] 33854- 8790 Jul, [facility] [address], [place] [address]- 5869 Jun, Obsessive compulsive disorder F42 ; Major depression, recurrent F33.9 and Mental retardation F79 [facility] [address], [place] [address]- 7966 Jun, [facility] [id number] [address]- 1526 Jun, [facility] [address], [place] [address]- 6563 May, [facility] [address], [place] [address]- 3978 15 Apr, 2015 [facility] [address], [place] [address]- 9949 30 Mar, 2015 Generalized anxiety disorder 300.02 and Major depressive disorder, recurrent episode, mild 296.31 [facility] [address], [place] [address]- 5453 14 Mar, 2015 [facility] [address], [place] [address]- 7767 Feb, [facility] [address] [address]- 4529 13 Jan, 2015 [facility] [address] [facility] [id number], [place] [address]- 3035 10 Dec, 2014 Generalized anxiety disorder 300.02 and Depressive disorder , not elsewhere classified 311 [facility] [address] [id number] [place] [address] 14 Oct, 2014 [facility] [address] [facility] [id number] [place] [address]- 1413 Oct, [facility] [address] [facility] [id number] [place] [address]- 6052 Sep, [facility] [address] [facility] [id number], [place] [address]- 9242 Sep, [facility] [id number] [place] [address]- 9672 Jun, [facility] [id number] [address]- 7950 Jun, [facility] [place] [facility] [id number], [place] [address]- 1590 May, [facility] [id number], [place] [address]- 6998 May, [facility] [place] [facility] [address] [facility] [id number], [place] [address]- 6036 May, [facility] [place] [facility] [address] [facility] [id number], [place] [address]- 4993 Apr, [facility] [place] [facility] [address] [facility] [id number], [place] [address]- 9365 Apr, [facility] [place] [facility] [address] [facility] [id number], [place] [address]- 1423 Feb, [facility] [place] [facility] [address] [facility] [id number], [place] [address]- 5068 Jan, [facility] [place] [facility] [address] [facility] [id number], [place] [address]- 6531 Jan, [facility] [place] [facility] [address] [id number] [place] [address]- 4463 Dec, [facility] [place] [facility] [address] [id number] [place] [address]- 1390 Dec, [facility] [place] [facility] [address] [facility] [id number] [place] [address]- 0816 Oct, [facility] [place] [facility] [address] [id number] [place] [address]- 4959 Oct, [facility] [place] [facility] [address] [id number] [place] [address]- 3174 Oct, [facility] [place] [facility] [address] [facility] [id number] [place] [address]- 0388 Oct, [facility] [place] [facility] [address] [facility] [id number] [place] [address]- 6782 Sep, [facility] [place] [facility] [address] [id number] [place] [address]- 8994 Sep, [facility] [place] [facility] [address] [id number] [place] [address]- 1674 Sep, [facility] [place] [facility] [address] [facility] [id number] [place] [address]- 4048 Sep, [facility] [place] [facility] [address] [id number] [place] [address]- 4102 Aug, [facility] [place] [facility] [address] [id number] [place] [address]- 9189 Aug, [facility] [place] [facility] [address] [id number] [place] [address]- 9781 Aug, [facility] [place] [facility] [address] [id number] [place] [address]- 4926 Aug, [facility] [place] [facility] [address] [facility] [id number], [place] [address]- 4795 Jul, [facility] [place] [facility] [address] [id number] [place] [address]- 5926 Jul, [facility] [place] [facility] [address] [id number] [place] [address]- 0456 Jul, [facility] [place] [facility] [address] [id number] [place] [address]- 5652 Jul, [facility] [place] [facility] [address] [id number] [place] [address]- 7539 Jul, [facility] [place] [facility] [address] [id number] [place] [address]- 3826 Jul, [facility] [place] [facility] [address] [id number] [place] [address]- 8658 Apr, [facility] [place] [facility] [address] [id number] [place] [address]- 1937 Apr, [facility] [place] [facility] [address] [id number] [place] [address]- 9335 Apr, [facility] [place] [facility] [address] [id number] [place] [address]- 5009 Apr, [facility] [place] [facility] [address] [id number] [place] [address]- 5156 Apr, [facility] [place] [facility] [address] [id number] [place] [address]- 8201 Apr, [facility] [place] [facility] [address] [id number] [place] [address]- 5159 Apr, [facility] [place] [facility] [address] [id number] [place] [address]- 2792 Apr, [facility] [place] [facility] [address] [id number] [place] [address]- 8414 Apr, [facility] [place] [facility] [address] [id number] [place] [address]- 1244 Apr, [facility] [place] [facility] [address] [id number] [place] [address]- 2546 16 Apr, 2013 [facility] [place] [facility] [address] [id number] [place] 3714 16 Apr, 2013 [facility] [place] [facility] [address] [id number] [place] [address]- 1905 16 Apr, 2013 [facility] [place] [facility] [address] [id number] [place] [address]- 8533 16 Apr, 2013 [facility] [place] [facility] [address] [id number] [place] [address]- 3403 18 Mar, 2013 [facility] [place] [facility] [address] [id number] [place] [address]- 2522 17 Mar, 2013 [facility] [place] [facility] [address] [id number] [place] [address]- 2846 16 Mar, 2013 [facility] [place] [facility] [address] [id number] [place] [address]- 7168 13 Mar, 2013 [facility] [place] [facility] [address] [id number] [place] [address]- 2173 Feb, [facility] [place] [facility] [address] [id number] [place] [address]- 5732 Feb, [facility] [place] [facility] [address] [id number] [place] [address]- 4503 Jan, [facility] [place] [facility] [address] [id number] [place] [address]- 4221 Jan, [facility] [place] [facility] [address] [id number] [place] [address]- 8191 Jan, [facility] [place] [facility] [address] [id number] [place] [address]- 6134 Jan, [facility] [place] [facility] [address] [id number] [place] [address]- 6137 Jan, [facility] [place] [facility] [address] [id number] [place] 9034 Jan, [facility] [place] [facility] [address] [id number] [place] [address]- 4334 05 Jan, 2013 [facility] [address] [id number] [place] [address]- 7833 Jan, [facility] [address] [id number] [place] [address]- 3444 Dec, [facility] [address] [id number] [place] [address]- 0247 Dec, [facility] [address] [id number] [place] [address]- 1202 Dec, [facility] [address] [id number] [place] [address]- 4057 Dec, [facility] [address] [id number] [place] [address]- 1256 Dec, [facility] [address] [id number] [place] [address]- 0347 Dec, [facility] [address] [id number] [place] [address]- 7486 Dec, [facility] [address] [id number] [place] [address]- 1338 Dec, [facility] [address] [id number] [place] [address]- 6259 Dec, [facility] [address] [id number] [place] [address]- 0096 November, [facility] [address] [id number] [place] [address]- 6664 Oct, [facility] [place] [facility] [address] [id number] [place] [address]- 0166 Oct, [facility] [place] [facility] [address] [id number] [place] [address]- 8093 Oct, [facility] [place] [facility] [address] [id number] [place] [address]- 1333 Oct, [facility] [address] [id number] [place] [address]- 2941 Oct, [facility] [address] [id number] [place] [address]- 4306 Oct, [facility] [address] [id number] [place] [address]- 5243 Aug, [facility] [address] [id number] [place] [address]- 7981 Aug, [facility] [address] [id number] [place] [address]- 1263 Jul, [facility] [address] [id number] [place] [address]- 6783 Jul, [facility] [address] [id number] [place] [address]- 8999 Jul, [facility] [address] [id number] [place] [address]- 4904 Jul, [facility] [address] [id number] [place] [address]- 8902 Jul, [facility] [address] [id number] [place] [address]- 4331 Jul, [facility] [address] [id number] [place] [address]- 9552 Jul, [facility] [address] [id number], [place] [address]- 1611 Jun, [facility] [address] [id number] [place] [address]- 4354 Jun, [facility] [address] [id number] [place] [address]- 8712 Jun, [facility] [place] [facility] [address] [id number] [place] [address]- 4238 Jun, [facility] [address] [id number] [place] [address]- 5795 Jun, [facility] [place] [facility] [address] [id number] [place] [address]- 9577 Apr, [facility] [place] [facility] [address] [id number] [place] [address]856 Apr, [facility] [place] [facility] [address] [facility] [id number] [place] [address]- 7953 Apr, [facility] [place] [facility] [address] [id number] [place] [address]- 3306 Mar, [facility] [place] [facility] [address] [id number] [place] [address]- 0822 Feb, [facility] [place] [facility] [address] [id number] [place] [address]- 0159 Jan, [facility] [place] [facility] [address] [id number] [place] [address]- 6718 Jan, [facility] [place] [facility] [address] [id number] [place] [address]- 9204 Dec, [facility] [place] [facility] [address] [id number] [place] 4421 November, [facility] [place] [facility] [address] [facility] [id number] [place] [address]- 2148 Oct, [facility] [place] [facility] [address] [facility] [id number] [place] [address]- 3637 Sep, [facility] [place] [facility] [address] [facility] [id number] [place] [address] Sep, [facility] [place] [facility] [address] [id number] [place] [address] Aug, [facility] [place] [facility] [address] [facility] [id number] [place] [address] Aug, [facility] [place] [facility] [address] [facility] [id number] [place] [address] Aug, [facility] [address] [id number] [address] Jul, [facility] [id number] [address] Jul, [facility] [id number] [address] Jun, [facility] [id number] [place] [address] Jun, [facility] [id number] [address] May, [facility] [address] [place] [address] Apr, [facility] [id number] [address] Apr, IMMUNIZATIONS No Known Immunizations SOCIAL HISTORY Never Assessed REASON FOR VISIT longterm placement PLAN OF CARE VITAL SIGNS MEDICATIONS Unknown Medications RESULTS No Results PROCEDURES No Known procedures INSTRUCTIONS MEDICATIONS ADMINISTERED No Known Medications MEDICAL (GENERAL) HISTORY Type Description Date Medical History GERD Surgical History cholecystectomy 2013 Hospitalization History ED [place]- Chest Pain 08/26/2017 Hospitalization History Hospital, UTI/Septic 02/20/18 Hospitalization History viral infection 03/07/18
--- OUTSIDE RECORDS SUMMARY | 2018-08-01 23:00 | XMS REPORT ---
Author Author JOAO KULKARNI [facility] Address [address] [place] [address] Care Team Providers Care Improvement Coordinator Name Role Phone JOAO KULKARNI Unavailable PROBLEMS Type Condition ICD9-CM Code CXE69-ZQ Code Onset Dates Condition Status SNOMED Code Problem Wheezing 786.07 Active 19244989 Problem Encounter for long-term (current) use of other medications V58.69 Active 587555129 Problem Unspecified otalgia 388.70 Active 38691405 Problem Acute suppurative otitis media without spontaneous rupture of eardrum 382.00 Active 60133508 Problem Dysfunction of Eustachian tube 381.81 Active 83661809 Problem Moderate mental retardation 318.0 Active 30507313 Problem Mild mental retardation 317 Active 64216920 Problem Hyperlipidemia, unspecified hyperlipidemia type E78.5 Active 61458749 Problem Depressive disorder, not elsewhere classified 311 Active 60824335 Problem Essential tremor G25.0 Active 559155415 Problem Obsessive-compulsive disorders 300.3 Active 979241108 Problem Coarse tremors G25.2 Active 51793813 Problem Developmental non-verbal 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 Active 239837365 Problem Altered mental status, unspecified altered mental status type R41.82 Active 938335049 Problem Moderate intellectual disabilities F71 Active 69347972 Problem Dementia without behavioral disturbance, unspecified dementia type F03.90 Active 94507391 Problem Unspecified psychosis 298.9 Active 60945747 Problem Anxiety state, unspecified 300.00 Active 427331572 Problem Generalized anxiety disorder 300.02 Active 11896670 Problem BMI 40.0-44.9, adult Z68.41 Active 211065176 Problem Obsessive-compulsive disorder, unspecified F42.9 Active 318055125 Problem Constipation, unspecified constipation type K59.00 Active 13743646 Problem Urinary incontinence, nocturnal enuresis N39.44 Active 8569434 Problem Major depressive disorder, recurrent episode, mild 296.31 Active 42157891 Problem Obsessive compulsive disorder F42 Active 880573114 Problem Unspecified episodic mood disorder 296.90 Active 760351758 Problem Major depressive disorder, recurrent episode, moderate 296.32 Active 17214132 Problem Morbid (severe) obesity due to excess calories E66.01 Active [id number] Problem MR (mental retardation) F79 Active 417546955 Problem Major depression, recurrent F33.9 Active 89711708 Problem Major depressive disorder, recurrent episode, in partial remission F33.41 Active 16860084 ALLERGIES No Known Allergies ENCOUNTERS Encounter Location Date Diagnosis [place] [id number] [place] [address]00- [address]457 Apr, [address] [address] Apr, Moderate intellectual disabilities 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 ; Morbid (severe) obesity due to excess calories E66.01 ; Coarse tremors G25.2 ; Urinary incontinence, nocturnal enuresis N39.44 ; Dementia without behavioral disturbance, unspecified dementia type F03.90 and At risk for falls Z91.81 [place] [id number] [place] [address] 71871- 9522 Apr, Constipation, unspecified constipation type K59.00 ; Urinary incontinence, nocturnal enuresis N39.44 ; MR (mental retardation) F79 and Obsessive-compulsive disorder, unspecified F42.9 [place] [id number] [place] [address] 45179- 5992 Apr, [place] [id number] [place] [address] 46341- 0556 Apr, Altered mental status, unspecified altered mental status type R41.82 ; Obsessive-compulsive disorder, unspecified F42.9 ; Developmental non-verbal 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 ; BMI 40.0-44.9, adult Z68.41 and Recurrent UTI N39.0 [place] [id number] [place] [address] 51404- 2689 Mar, Altered mental status, unspecified altered mental status type R41.82 ; Tachycardia R00.0 ; Acute cystitis without hematuria N30.00 and Bacteremia R78.[id number] [address] Mar, [facility] [id number] [place] [address] 23815- 2402 Mar, [facility] [id number] [address] Feb, [place] [id number] [place] [address] 49788- 1542 Feb, Dysuria R30.0 [place] [id number] [place] [address] 75647- 3318 Feb, Dysuria R30.0 ; Acute cystitis without hematuria N30.00 and Tachycardia R00.0 [facility] [id number] [place] [address]72 -5168 Feb, Coarse tremors G25.2 and BMI 45.0-49.9, adult Z68.42 [place] [id number] [place] [address] 36687- 7775 Jan, [place] [id number] [place] [address] 11963- 2370 Jan, Major depressive disorder, recurrent episode, in partial remission F33.41 [place] [id number] [place] [address] 80501- 7107 Dec, Hyperglycemia R73.9 ; Hyperlipidemia, unspecified hyperlipidemia type E78.5 ; Body mass index (BMI) of 40.0-44.9 in adult Z68.41 and MR (mental retardation) F79 [facility] [address] [address] November, Major depressive disorder, recurrent episode, in partial remission F33.41 ; Mental retardation F79 ; Obsessive compulsive disorder F42 and BMI 50.0-59.9, adult Z68.43 [place] [id number] [address] 74[address] Oct, [facility] [id number] [address] Jul, Acute nasopharyngitis J00 and Vomiting, intractability of vomiting not specified, presence of nausea not specified, unspecified vomiting type R11.10 [facility] [address] [address] 9706 Jul, BMI 45.0-49.9, adult Z68.42 ; Major depressive disorder, recurrent episode, in partial remission F33.41 ; Mental retardation F79 and Obsessive compulsive disorder F42 [place] [id number] [place] [address] 16109- 2610 Jul, High risk medication use Z79.899 [place] [id number] [place] [address] 53334- 2896 Jun, Morbid (severe) obesity due to excess calories E66.01 ; Body mass index (BMI) of 40.0-44.9 in adult Z68.41 ; Mental retardation F79 ; Elevated blood pressure reading R03.0 ; Screening for diabetes mellitus (DM) Z13.1 and Screening for lipid disorders Z13.220 [id number] [place] [address] 37258- 9660 May, High risk medication use Z79.899 ; Major depressive disorder , recurrent episode, in partial remission F33.41 ; Mental retardation F79 and Obsessive compulsive disorder F42 [place] [id number] [address] 2024 May, [place] [id number] [address] 9[address] Apr, [facility] [id number] [id number] Mar, [facility] [address] [place] [address] [address]- 1511 Jan, Major depression, recurrent F33.9 ; Mental retardation F79 and Obsessive compulsive disorder F42 [address] [address]- 0[address] November, Major depression, recurrent F33.9 and Obsessive compulsive disorder F42 [facility] [id number] [address]- 4236 10 Sep, 2016 [facility] [address] [address]- 8247 Jun, Obsessive compulsive disorder F42 ; Mental retardation F79 and Major depressive disorder, recurrent episode, in partial remission F33.41 [facility] [address] [address]- 2247 Apr, [facility] [id number] [place] [address] 32089- 8342 Apr, Major depression, recurrent F33.9 ; Obsessive compulsive disorder F42 and Mental retardation F79 [facility] [address], [place] [address]- 2582 Jan, [facility] [id number] [address]- 1169 Jan, Major depression, recurrent F33.9 ; Obsessive compulsive disorder F42 and Mental retardation F79 [facility] [id number] [address]- 2532 Dec, [facility] [id number], [place] [address]- 0089 November, [facility] [id number] [address]- 3629 November, [facility] [id number] [address]- 2858 Oct, [facility] [address] [address]- 8594 Oct, Obsessive compulsive disorder F42 ; Major depression, recurrent F33.9 and Mental retardation F79 [facility] [id number] [address]- 1769 16 Sep, 2015 [facility] [id number], [place] [address]- 0352 17 Aug, 2015 [facility] [address] [address]- 8409 15 Aug, 2015 [facility] [id number] [address]- 7846 Aug, [facility] [id number] [place] [address] 47035- 4710 Jul, [facility] [id number] [place] [address] 73573- 9505 Jul, [facility] [id number] [place] [address] 27939- 8154 Jul, [facility] [id number] [address]- 4120 Jun, Obsessive compulsive disorder F42 ; Major depression, recurrent F33.9 and Mental retardation F79 [facility] [address], [place] [address]- 7504 Jun, [facility] [id number] [place] [address] 34383- 1452 Jun, [facility] [address] [address]- 4027 May, [facility] [address] [address]- 6406 15 Apr, 2015 [facility] [address] [address]- 4721 30 Mar, 2015 Generalized anxiety disorder 300.02 and Major depressive disorder, recurrent episode, mild 296.31 [facility] [address] [address]- 1826 14 Mar, 2015 [facility] [address], [place] [address]- 1258 Feb, [facility] [id number] [place] [address]- 7174 13 Jan, 2015 [facility] [address] [id number] [place] [address]- 2522 10 Dec, 2014 Generalized anxiety disorder 300.02 and Depressive disorder , not elsewhere classified 311 [facility] [address] [id number] [place] [address] 14 Oct, 2014 [facility] [address] [id number] [place] [address]- 9344 Oct, [facility] [address] [facility] [id number] [place] [address]- 9714 Sep, [facility] [address] [facility] [id number] [place] [address]- 2250 Sep, [facility] [id number] [place] [address]- 7914 Jun, [facility] [address] [facility] [id number] [address]- 4941 Jun, [facility] [address] [facility] [id number] [place] [address]- 4600 May, [facility] [address] [facility] [id number] [address]- 1577 May, [facility] [address] [facility] [id number] [address]- 4702 May, [facility] [address] [facility] [id number], [place] [address]- 3239 Apr, [facility] [place] [facility] [address] [facility] [id number] [place] [address]- 0599 Apr, [facility] [place] [facility] [address] [facility] [id number] [address]- 8576 Feb, [facility] [place] [facility] [address] [facility] [id number] [place] [address]- 9713 Jan, [facility] [place] [facility] [address] [facility] [id number] [place] [address]- 0258 Jan, [facility] [place] [facility] [address] [id number] [place] [address]- 9613 Dec, [facility] [place] [facility] [address] [id number] [place] [address]- 6200 Dec, [facility] [place] [facility] [address] [id number] [place] [address]- 5514 Oct, [facility] [place] [facility] [address] [id number] [place] [address]- 8262 Oct, [facility] [place] [facility] [address] [id number] [place] [address]- 8210 Oct, [facility] [place] [facility] [address] [id number] [place] [address]- 1751 Oct, [facility] [place] [facility] [address] [id number] [place] [address]- 0630 Sep, [facility] [place] [facility] [address] [id number] [place] [address]- 6151 Sep, [facility] [place] [facility] [address] [id number] [place] [address]- 1909 Sep, [facility] [place] [facility] [address] [id number] [place] [address]- 9781 Sep, [facility] [place] [facility] [address] [id number] [place] [address]- 0963 Aug, [facility] [place] [facility] [address] [id number] [place] [address]- 2837 Aug, [facility] [place] [facility] [address] [id number] [place] [address]- 4149 Aug, [facility] [place] [facility] [address] [id number] [place] [address]- 9620 Aug, [facility] [place] [facility] [address] [id number] [place] [address]- 0284 Jul, [facility] [place] [facility] [address] [id number] [place] [address]- 8709 Jul, [facility] [place] [facility] [address] [id number] [place] [address]- 5662 Jul, [facility] [place] [facility] [address] [id number] [place] [address]- 3565 Jul, [facility] [place] [facility] [address] [id number] [place] [address]- 1520 Jul, [facility] [place] [facility] [address] [id number] [place] [address]- 8248 Jul, [facility] [place] [facility] [address] [id number] [place] [address]- 8668 Apr, [facility] [place] [facility] [address] [id number] [place] [address]- 3777 Apr, [facility] [place] [facility] [address] [id number] [place] [address]- 0146 Apr, [facility] [place] [facility] [address] [id number] [place] [address]- 5587 Apr, [facility] [place] [facility] [address] [id number] [place] [address]- 3440 Apr, [facility] [place] [facility] [address] [id number] [place] [address]- 9935 Apr, [facility] [place] [facility] [address] [id number] [address]- 1871 Apr, [facility] [place] [facility] [address] [id number] [place] [address]- 9750 Apr, [facility] [place] [facility] [address] [id number] [place] [address]- 5898 Apr, [facility] [place] [facility] [address] [id number] [place] [address]- 2985 Apr, [facility] [place] [facility] [address] [id number] [place] [address]- 5173 16 Apr, 2013 [facility] [place] [facility] [address] [id number] [place] [address]- 3085 16 Apr, 2013 [facility] [place] [facility] [address] [id number] [place] [address]- 3279 16 Apr, 2013 [facility] [place] [facility] [address] [id number] [place] [address]- 0293 16 Apr, 2013 [facility] [place] [facility] [address] [id number] [place] [address]- 4086 18 Mar, 2013 [facility] [place] [facility] [address] [id number] [place] [address]- 5560 17 Mar, 2013 [facility] [place] [facility] [address] [id number] [place] [address]- 5205 16 Mar, 2013 [facility] [place] [facility] [address] [id number] [place] [address]- 7145 13 Mar, 2013 [facility] [place] [facility] [address] [id number] [place] [address]- 3119 Feb, [facility] [place] [facility] [address] [id number] [place] [address]- 7203 Feb, [facility] [place] [facility] [address] [id number] [place] [address]- 5566 Jan, [facility] [place] [facility] [address] [id number] [place] [address]- 3619 Jan, [facility] [place] [facility] [address] [id number] [place] [address]- 4957 Jan, [facility] [place] [facility] [address] [id number] [place] [address]- 3139 Jan, [facility] [place] [facility] [address] [id number] [place] [address]- 2458 Jan, [facility] [place] [facility] [address] [id number] [place]14 Jan, [facility] [place] [facility] [address] [id number] [place] [address]- 7750 05 Jan, 2013 [facility] [address] [id number] [place] [address]- 4303 Jan, [facility] [address] [id number] [place] [address]- 3589 Dec, [facility] [address] [id number] [place] [address]- 0465 Dec, [facility] [address] [id number] [place] [address]- 8099 Dec, [facility] [address] [id number] [place] [address]- 0739 Dec, [facility] [address] [id number] [place] [address]- 7081 Dec, [facility] [address] [id number] [place] [address]- 7397 Dec, [facility] [address] [id number] [place] [address]- 1079 Dec, [facility] [address] [id number] [place] [address]- 2590 Dec, [facility] [address] [id number] [place] [address]- 6561 Dec, [facility] [address] [id number] [place] [address]- 3746 November, [facility] [address] [id number] [place] [address]- 3582 Oct, [facility] [place] [facility] [address] [id number] [place] [address]- 3717 Oct, [facility] [place] [facility] [address] [id number] [place] [address]- 6550 Oct, [facility] [place] [facility] [address] [id number] [place] [address]- 7588 Oct, [facility] [address] [id number] [place] [address]- 3551 Oct, [facility] [address] [id number] [place] [address]- 8307 Oct, [facility] [address] [id number] [place] [address]- 5744 Aug, [facility] [address] [id number] [place] [address]- 1313 Aug, [facility] [address] [id number] [place] [address]- 7010 Jul, [facility] [address] [id number] [place] [address]- 5249 Jul, [facility] [address] [id number] [place] [address]- 1263 Jul, [facility] [address] [id number] [place] [address]- 7513 Jul, [facility] [address] [id number] [place] [address]- 6175 Jul, [facility] [address] [id number] [place] [address]- 7257 Jul, [facility] [address] [id number] [place] [address]- 5507 Jul, [facility] [address] [id number] [address]- 1942 Jun, [facility] [place] [facility] [address] [id number] [place] [address]- 1351 Jun, [facility] [place] [facility] [address] [id number] [place] [address]- 7985 Jun, [facility] [place] [facility] [address] [id number] [place] [address]- 1966 Jun, [facility] [address] [id number] [place] [address]- 4310 Jun, [facility] [address] [id number] [place] [address]- 7951 Apr, [facility] [place] [facility] [address] [id number] [place] 8024 Apr, [facility] [place] [facility] [address] [id number] [place] [address]- 8049 Apr, [facility] [place] [facility] [address] [id number] [place] [address]- 0572 Mar, [facility] [place] [facility] [address] [id number] [place] 4963 Feb, [facility] [place] [facility] [address] [id number] [place] [address]- 1618 Jan, [facility] [place] [facility] [address] [id number] [place] [address]- 7597 Jan, [facility] [place] [facility] [address] [id number] [place] [address] Dec, [facility] [place] [facility] [address] [id number] [place] [address] November, [facility] [place] [facility] [address] [facility] [id number] [place] [address] Oct, [facility] [place] [facility] [address] [id number] [place] [address] Sep, [facility] [place] [facility] [address] [id number] [place] [address] Sep, [facility] [place] [facility] [address] [id number] [place] [address] Aug, [facility] [place] [facility] [address] [id number] [place] [address] [address] Aug, [facility] [place] [facility] [address] [id number] [place] [address] Aug, [facility] [address] [facility] [id number] [address] Jul, [facility] [address] [id number] [address] Jul, [facility] [address] [id number] [address] Jun, [facility] [id number] [address] Jun, [facility] [address] [facility] [id number], [place] [address] May, [facility] [address] [id number] [address] Apr, [facility] [address] [id number], [place] [address] Apr, IMMUNIZATIONS No Known Immunizations SOCIAL HISTORY Never Assessed REASON FOR VISIT UTI F/U -- michael gonzalez PLAN OF CARE Activity Details Follow Up 2 Months with Amanda Reason: Pending Test MRI : Brain w/ Contrast VITAL SIGNS Height 65 in 2018-05-11 Weight 257 lbs 2018-05-11 Temperature 98.7 degrees Fahrenheit 2018-05-11 Heart Rate 80 bpm 2018-05-11 Respiratory Rate 22 2018-05-11 BMI 42.76 kg/m2 2018-05-11 Blood pressure systolic 122 mmHg 2018-05-11 Blood pressure diastolic 78 mmHg 2018-05-11 MEDICATIONS Medication Instructions Dosage Frequency Start Date End Date Duration Status Montelukast Sodium 10 MG Orally Once a day 1 tablet 24h 30 day(s) Active Omeprazole 20MG Orally Once a day 1 capsule 24h 30 Active Latuda 20 MG Orally Once a day 1 tablet with food 24h Apr, 30 days Active Clonazepam 0.5 MG Orally as needed Once a day 1 tablet 24h Sep, 30 days Active RESULTS No Results PROCEDURES Procedure Date Ordered Result Body Site [facility] VISIT ESTABLISHED PATIENT May 11, 2018 INSTRUCTIONS MEDICATIONS ADMINISTERED No Known Medications MEDICAL (GENERAL) HISTORY Type Description Date Medical History GERD Surgical History cholecystectomy 2013 Hospitalization History ED [place]- Chest Pain 08/26/2017 Hospitalization History [facility], UTI/Septic 02/20/18 Hospitalization History viral infection 03/07/18
--- OUTSIDE RECORDS SUMMARY | 2018-08-01 23:01 | XMS REPORT ---
Author Author JOAO KULKARNI 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 Name Role Phone JOAO KULKARNI Unavailable PROBLEMS Type Condition ICD9-CM Code PRQ73-VU Code Onset Dates Condition Status SNOMED Code Problem Encounter for long-term (current) use of other medications V58.69 Active 350691476 Problem Wheezing 786.07 Active 65365996 Problem Unspecified otalgia 388.70 Active 67557637 Problem Acute suppurative otitis media without spontaneous rupture of eardrum 382.00 Active 48786796 Problem Dysfunction of Eustachian tube 381.81 Active 93248989 Problem Morbid (severe) obesity due to excess calories E66.01 Active 60695528833154 Problem Moderate mental retardation 318.0 Active 07631646 Problem Hyperlipidemia, unspecified hyperlipidemia type E78.5 Active 18593801 Problem Mild mental retardation 317 Active 30040412 Problem MR (mental retardation) F79 Active 690710124 Problem Essential tremor G25.0 Active 830704130 Problem Coarse tremors G25.2 Active 47274571 Problem Constipation, unspecified constipation type K59.00 Active 05691751 Problem Urinary incontinence, nocturnal enuresis N39.44 Active 3915955 Problem Generalized anxiety disorder 300.02 Active 50610690 Problem Obsessive-compulsive disorders 300.3 Active 960227619 Problem Depressive disorder, not elsewhere classified 311 Active 90998594 Problem BMI 40.0-44.9, adult Z68.41 Active 533950914 Problem Altered mental status, unspecified altered mental status type R41.82 Active 777032643 Problem Obsessive-compulsive disorder, unspecified F42.9 Active 632693762 Problem Developmental non-verbal 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 Active 429322985 Problem Unspecified episodic mood disorder 296.90 Active 606466231 Problem Major depressive disorder, recurrent episode, moderate 296.32 Active 76778768 Problem Anxiety state, unspecified 300.00 Active 021451619 Problem Unspecified psychosis 298.9 Active 74529239 Problem Major depression, recurrent F33.9 Active 65370691 Problem Major depressive disorder, recurrent episode, in partial remission F33.41 Active 92737878 Problem Major depressive disorder, recurrent episode, mild 296.31 Active 15541476 Problem Obsessive compulsive disorder F42 Active 802720087 ALLERGIES No Known Allergies ENCOUNTERS Encounter Location Date Diagnosis [place] [id number] [place] [address] 26373- 1371 Apr, [place] [address] 19896- 5179 Apr, Constipation, unspecified constipation type K59.00 ; Urinary incontinence, nocturnal enuresis N39.44 ; MR (mental retardation) F79 and Obsessive-compulsive disorder, unspecified F42.9 [place] [address] 99063- 4682 Apr, [place] [address] 71277- 6927 Apr, Altered mental status, unspecified altered mental status type R41.82 ; Obsessive-compulsive disorder, unspecified F42.9 ; Developmental non-verbal 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 ; BMI 40.0-44.9, adult Z68.41 and Recurrent UTI N39.0 [place] [id number] [place] [address] 54466- 9655 Mar, Altered mental status, unspecified altered mental status type R41.82 ; Tachycardia R00.0 ; Acute cystitis without hematuria N30.00 and Bacteremia R78.81 [place] [id number] [place] [address] 40929- 9141 Mar, [place] [address] 33539- 7301 Mar, [place] [id number] [place] [address] 79305- 5989 Feb, [place] [address] 64020- 4558 Feb, Dysuria R30.0 [place] [id number] [place] [address] 99958- 0541 Feb, Dysuria R30.0 ; Acute cystitis without hematuria N30.00 and Tachycardia R00.0 [facility] [id number] [place] [address] 53414 -7206 Feb, Coarse tremors G25.2 and BMI 45.0-49.9, adult Z68.42 [place] [id number] [place] [address] 25143- 0645 Jan, [place] [address] 82441- 5602 Jan, Major depressive disorder, recurrent episode, in partial remission F33.41 [place] [id number] [place] [address] 82987- 6540 Dec, Hyperglycemia R73.9 ; Hyperlipidemia, unspecified hyperlipidemia type E78.5 ; Body mass index (BMI) of 40.0-44.9 in adult Z68.41 and MR (mental retardation) F79 [place] [id number] [place] [address] 08350- 2424 November, Major depressive disorder, recurrent episode, in partial remission F33.41 ; Mental retardation F79 ; Obsessive compulsive disorder F42 and BMI 50.0-59.9, adult Z68.43 [place] [id number] [place] [address] 45580- 8972 Oct, [facility] [id number] [place] [address] 33454 -5233 Jul, Acute nasopharyngitis J00 and Vomiting, intractability of vomiting not specified, presence of nausea not specified, unspecified vomiting type R11.10 [place] [address] [place] [address] 79421- 2423 Jul, BMI 45.0-49.9, adult Z68.42 ; Major depressive disorder, recurrent episode, in partial remission F33.41 ; Mental retardation F79 and Obsessive compulsive disorder F42 [facility] [place] [address] [address] 2053 Jul, High risk medication use Z79.899 [facility] [place] [address] [address] 6531 Jun, Morbid (severe) obesity due to excess calories E66.01 ; Body mass index (BMI) of 40.0-44.9 in adult Z68.41 ; Mental retardation F79 ; Elevated blood pressure reading R03.0 ; Screening for diabetes mellitus (DM) Z13.1 and Screening for lipid disorders Z13.220 [place] [id number] [place] [address] 75524- 0270 May, High risk medication use Z79.899 ; Major depressive disorder , recurrent episode, in partial remission F33.41 ; Mental retardation F79 and Obsessive compulsive disorder F42 [facility] [place] [address] [address] 0688 May, [facility] [place] [address] [address] 7580 Apr, [address] [id number] [id number] Mar, [facility] [place] [address] [address]- 2805 Jan, Major depression, recurrent F33.9 ; Mental retardation F79 and Obsessive compulsive disorder F42 [facility] [place] [id number] [address] 8741 November, Major depression, recurrent F33.9 and Obsessive compulsive disorder F42 [facility] [place] [address] [address]- 9643 Sep, [facility] [place] [address] [address]- 8452 14 Jun, 2016 Obsessive compulsive disorder F42 ; Mental retardation F79 and Major depressive disorder, recurrent episode, in partial remission F33.41 [facility] [place] [address] [address]- 1449 Apr, [facility] [place] [id number] [place] [address] 32191- 5392 Apr, Major depression, recurrent F33.9 ; Obsessive compulsive disorder F42 and Mental retardation F79 [facility] [place] [id number] [place] [address] 94459- 0305 Jan, [facility] [place] [id number] [place] [address] 07702- 9310 Jan, Major depression, recurrent F33.9 ; Obsessive compulsive disorder F42 and Mental retardation F79 [facility] [place] [id number] [place] [address] 08144- 3329 Dec, [facility] [place] [id number] [place] [address] 22898- 1058 November, [facility] [place] [id number] [place] [address] 80090- 2044 November, [facility] [place] [id number] [place] [address] 41011- 3120 Oct, [facility] [place] [id number] [place] [address] 04238- 1261 Oct, Obsessive compulsive disorder F42 ; Major depression, recurrent F33.9 and Mental retardation F79 [facility] [place] [address] [address]- 2706 Sep, [facility] [place] [address], [place] [address]- 6922 17 Aug, 2015 [facility] [place] [id number] [place] [address] 59179- 1215 15 Aug, 2015 [facility] [place] [address], [place] [address]- 3761 Aug, [facility] [place] [id number] [place] [address] 07901- 3478 Jul, [facility] [place] [address], [place] [address]- 0896 Jul, [facility] [place] [id number] [place] [address] 122144- 4798 Jul, [facility] [place] [id number] [place] [address] 12630- 2719 Jun, Obsessive compulsive disorder F42 ; Major depression, recurrent F33.9 and Mental retardation F79 [facility] [place] [id number] [place] [address] 70851- 5524 Jun, [facility] [place] [id number] [place] [address] 19777- 4255 Jun, [facility] [place] [id number] [place] [address] 27906- 4438 May, [facility] [place] [id number] [place] [address] 56840- 0876 Apr, [facility] [place] [id number] [place] [address] 25807- 8742 30 Mar, 2015 Generalized anxiety disorder 300.02 and Major depressive disorder, recurrent episode, mild 296.31 [facility] [place] [address], [place] [address]- 9525 14 Mar, 2015 [facility] [place] [id number] [place] [address] 12048- 0308 Feb, [facility] [place] [address], [place] [address]- 8009 Jan, [facility] [place] [id number] [place] [address] 86612- 0026 10 Dec, 2014 Generalized anxiety disorder 300.02 and Depressive disorder , not elsewhere classified 311 [facility] [place] [address], [place] [address]- 6651 14 Oct, 2014 [facility] [place] [id number] [place] [address] 06788- 8436 Oct, [facility] [place] [facility] [address] [id number] [place] [address]- 4604 Sep, [facility] [place] [facility] [address] [id number] [place] [address]- 7110 Sep, [facility] [place] [facility] [address] [id number] [place] [address]- 8391 Jun, [facility] [place] [facility] [address] [id number] [place] [address]- 9324 Jun, [facility] [place] [facility] [address] [id number] [place] [address]- 7698 May, [facility] [place] [facility] [address] [id number] [place] [address]- 5038 May, [facility] [place] [facility] [address] [id number] [place] [address]- 9074 May, [facility] [place] [facility] [address] [id number] [place] [address]- 1590 Apr, [facility] [place] [facility] [address] [id number] [place] [address]- 3996 Apr, [facility] [place] [facility] [address] [id number] [place] [address]- 7388 Feb, [facility] [place] [facility] [address] [id number] [place] [address]- 6032 Jan, [facility] [place] [facility] [address] [id number] [place] [address]- 9681 Jan, [facility] [place] [facility] [address] [id number] [place] [address]- 0036 Dec, [facility] [place] [facility] [address] [id number] [place] [address]- 5388 Dec, [facility] [place] [facility] [address] [id number] [place] [address]- 6100 Oct, [facility] [place] [facility] [address] [id number] [place] [address]- 8621 18 Oct, 2013 [facility] [address] [id number] [place] [address]- 7556 14 Oct, 2013 [facility] [place] [facility] [address] [id number] [place] [address]- 3226 14 Oct, 2013 [facility] [address] [id number] [place] [address]- 2734 Sep, [facility] [place] [facility] [address] [id number] [place] [address]- 4632 Sep, [facility] [address] [id number] [place] [address]- 1373 Sep, [facility] [place] [facility] [address] [id number] [place] [address]- 1434 Sep, [facility] [address] [id number] [place] [address]- 3504 Aug, [facility] [address] [id number] [place] [address]- 8298 Aug, [facility] [place] [facility] [address] [id number] [place] [address]- 8779 Aug, [facility] [address] [id number] [place] [address]- 5963 Aug, [facility] [place] [facility] [address] [id number] [place] [address]- 1000 Jul, [facility] [place] [facility] [address] [id number] [place] [address]- 5256 Jul, [facility] [place] [facility] [address] [id number] [place] [address]- 4678 Jul, [facility] [place] [facility] [address] [id number] [place] [address]- 9226 Jul, [facility] [place] [facility] [address] [id number] [place] [address]- 8005 Jul, [facility] [place] [facility] [address] [id number] [place] [address]- 1685 Jul, [facility] [place] [facility] [address] [id number] [place] [address]- 7405 Apr, [facility] [place] [facility] [address] [id number] [place] [address]- 2678 29 Apr, 2013 [facility] [place] [facility] [address] [id number] [place] [address]- 7805 Apr, [facility] [place] [facility] [address] [id number] [place] [address]- 2370 24 Apr, 2013 [facility] [place] [facility] [address] [id number] [place] [address]- 7779 Apr, [facility] [place] [facility] [address] [id number] [place] [address]- 7180 Apr, [facility] [place] [facility] [address] [id number], [place] [address]- 1858 18 Apr, 2013 [facility] [place] [facility] [address] [id number], [place] [address]- 0052 18 Apr, 2013 [facility] [place] [facility] [address] [id number], [place] [address]- 2373 17 Apr, 2013 [facility] [place] [facility] [address] [id number], [place] [address]- 4031 17 Apr, 2012 [facility] [place] [facility] [address] [id number], [place] [address]- 8088 16 Apr, 2012 [facility] [place] [facility] [address] [id number], [place] [address]- 3958 16 Apr, 2013 [facility] [place] [facility] [address] [id number], [place] [address]- 5829 16 Apr, 2012 [facility] [place] [facility] [address] [id number], [place] [address]- 1270 16 Apr, 2012 [facility] [place] [facility] [address] [id number] [place] [address]- 4003 18 Mar, 2013 [facility] [address] [id number] [place] [address]- 2581 17 Mar, 2013 [facility] [place] [facility] [address] [id number] [place] [address]- 9766 16 Mar, 2013 [facility] [address] [id number] [place] [address]- 2036 13 Mar, 2013 [facility] [place] [facility] [address] [id number] [place] [address]- 0507 Feb, [facility] [place] [facility] [address] [id number] [place] [address]- 0569 Feb, [facility] [place] [facility] [address] [id number] [place] [address]- 4191 Jan, [facility] [address] [id number] [place] [address]- 6062 Jan, [facility] [place] [facility] [address] [id number] [place] [address]- 4930 Jan, [facility] [place] [facility] [address] [id number] [place] [address]- 0000 Jan, [facility] [place] [facility] [address] [id number] [place] [address]- 4795 Jan, [facility] [place] [facility] [address] [id number] [place] [address]- 8815 Jan, [facility] [place] [facility] [address] [id number] [place] [address]- 8505 Jan, [facility] [place] [facility] [address] [id number] [place] [address]- 4819 Jan, [facility] [place] [facility] [address] [id number] [place] [address]- 4837 Dec, [facility] [place] [facility] [address] [id number] [place] [address]- 4059 Dec, [facility] [place] [facility] [address] [id number] [place] [address]- 7386 Dec, [facility] [place] [facility] [address] [id number] [place] [address]- 0719 Dec, [facility] [place] [facility] [address] [id number] [place] [address]- 0225 Dec, [facility] [place] [facility] [address] [id number] [place] [address]- 3974 Dec, [facility] [place] [facility] [address] [id number] [place] [address]- 0502 Dec, [facility] [place] [facility] [address] [id number] [place] [address]- 2160 Dec, [facility] [address] [id number] [place] [address]- 4219 Dec, [facility] [place] [facility] [address] [id number] [place] [address]- 6224 November, [facility] [place] [facility] [address] [id number] [place] [address]- 7704 30 Oct, 2012 [facility] [place] [facility] [address] [id number] [place] [address]- 3039 30 Oct, 2012 [facility] [place] [facility] [address] [id number] [place] [address]- 7181 Oct, [facility] [place] [facility] [address] [id number] [place] [address]- 1526 Oct, [facility] [place] [facility] [address] [id number] [place] [address]- 7435 11 Oct, 2012 [facility] [place] [facility] [address] [id number] [place] [address]- 3141 10 Oct, 2012 [facility] [place] [facility] [address] [id number] [place] [address]- 7507 08 Aug, 2012 [facility] [place] [facility] [address] [id number] [place] [address]- 1699 Aug, [facility] [address] [id number] [place] [address]- 5738 Jul, [facility] [place] [facility] [address] [id number] [place] [address]- 1789 Jul, [facility] [place] [facility] [address] [id number] [place] [address]- 5991 Jul, [facility] [place] [facility] [address] [id number] [place] [address]- 9197 Jul, [facility] [place] [facility] [address] [id number] [place] [address]- 0930 Jul, [facility] [place] [facility] [address] [id number] [place] [address]- 3990 Jul, [facility] [address] [id number] [place] [address]- 0439 Jul, [facility] [place] [facility] [address] [id number] [place] [address]- 6718 Jun, [facility] [place] [facility] [address] [id number] [place] [address]- 4093 Jun, [facility] [place] [facility] [address] [id number] [place] [address]- 4190 Jun, [facility] [place] [facility] [address] [id number], [place] [address]- 0706 Jun, [facility] [place] [facility] [address] [id number], [place] [address]- 8204 Jun, [facility] [place] [facility] [address] [id number] [place] [address]- 5554 Apr, [facility] [place] [facility] [address] [id number] [place] [address]- 1707 Apr, [facility] [place] [facility] [address] [id number] [place] [address]- 1342 Apr, [facility] [place] [facility] [address] [id number] [place] [address]- 3034 Mar, [facility] [address] [id number] [place] [address]- 6748 Feb, [facility] [place] [facility] [address] [id number] [place] [address] 2546 Jan, [facility] [address] [id number] [place] [address] Jan, [facility] [address] [id number] [place] [address] Dec, [facility] [address] [id number] [place] [address] November, [facility] [address] [id number] [place] [address] Oct, [facility] [address] [id number] [place] [address] Sep, [facility] [address] [id number] [place] [address] Sep, [facility] [address] [id number] [place] [address] Aug, [facility] [address] [id number] [place] [address] Aug, [facility] [address] [id number] [place] [address] Aug, [facility] [address] [id number] [place] [address] Jul, [facility] [place] [facility] [address] [id number] [place] [address] Jul, [facility] [place] [facility] [address] [id number] [place] [address] Jun, [facility] [place] [facility] [address] [id number] [place] [address] Jun, [facility] [place] [address] [facility] [id number] [place] [address] May, [facility] [place] [address] [facility] [id number] [address] Apr, [facility] [place] [address] [facility] [id number] [place] [address] Apr, IMMUNIZATIONS No Known Immunizations SOCIAL HISTORY Never Assessed REASON FOR VISIT UTI F/U, states is not doing better -- michael [email or web address] PLAN OF CARE Activity Details Follow Up 2 Weeks with [employer] titration Reason: VITAL SIGNS Height 65 in 2018-04-26 Weight 268.0 lbs 2018-04-26 Temperature 98.7 degrees Fahrenheit 2018-04-26 Heart Rate 92 bpm 2018-04-26 Respiratory Rate 20 2018-04-26 BMI 44.59 kg/m2 2018-04-26 Blood pressure systolic 130 mmHg 2018-04-26 Blood pressure diastolic 82 mmHg 2018-04-26 MEDICATIONS Medication Instructions Dosage Frequency Start Date End Date Duration Status Montelukast Sodium 10 MG Orally Once a day 1 tablet 24h 30 day(s) Active Omeprazole 20MG Orally Once a day 1 capsule 24h 30 Active Clonazepam 0.5 MG Orally as needed Once a day 1 tablet 24h Sep, 30 days Active Latuda 60 MG Orally Once a day 1 tablet with food 24h 30 days Active Latuda 40 mg Orally Once a day 1 tablet with food 24h Apr, 14 days Active RESULTS Name Result Date Reference Range Xray : KUB (IN HOUSE) 2018-04-26 PROCEDURES Procedure Date Ordered Result Body Site X-RAY EXAM ABDOMEN 1 VIEW Apr 26, 2018 [facility] VISIT ESTABLISHED PATIENT Apr 26, 2018 INSTRUCTIONS MEDICATIONS ADMINISTERED No Known Medications MEDICAL (GENERAL) HISTORY Type Description Date Medical History GERD Surgical History cholecystectomy 2013 Hospitalization History ED [place]- Chest Pain 08/26/2017 Hospitalization History Hospital, UTI/Septic 02/20/18 Hospitalization History viral infection 03/07/18
--- OUTSIDE RECORDS SUMMARY | 2018-08-01 23:01 | XMS REPORT ---
Author Author JOAO KULKARNI [facility] Address [address] [place] [address] Care Team Providers Care Cotton Header Name Role Phone JOAO KULKARNI Unavailable PROBLEMS Type Condition ICD9-CM Code GWT52-OA Code Onset Dates Condition Status SNOMED Code Problem Encounter for long-term (current) use of other medications V58.69 Active 464531614 Problem Wheezing 786.07 Active 04872984 Problem Unspecified otalgia 388.70 Active 28992597 Problem Major depression, recurrent F33.9 Active 18142487 Problem Acute suppurative otitis media without spontaneous rupture of eardrum 382.00 Active 57075441 Problem Major depressive disorder, recurrent episode, in partial remission F33.41 Active 82751075 Problem Dysfunction of Eustachian tube 381.81 Active 53632777 Problem Morbid (severe) obesity due to excess calories E66.01 Active 28137484370973 Problem Hyperlipidemia, unspecified hyperlipidemia type E78.5 Active 01920548 Problem MR (mental retardation) F79 Active 029720755 Problem BMI 40.0-44.9, adult Z68.41 Active 256426393 Problem Obsessive-compulsive disorder, unspecified F42.9 Active 091321932 Problem Depressive disorder, not elsewhere classified 311 Active 01220813 Problem Mild mental retardation 317 Active 39275768 Problem Moderate mental retardation 318.0 Active 08035143 Problem Coarse tremors G25.2 Active 99744166 Problem Essential tremor G25.0 Active 369765967 Problem Developmental non-verbal 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 Active 818123977 Problem Altered mental status, unspecified altered mental status type R41.82 Active 228965054 Problem Anxiety state, unspecified 300.00 Active 329170157 Problem Unspecified psychosis 298.9 Active 19998423 Problem Obsessive-compulsive disorders 300.3 Active 609379145 Problem Generalized anxiety disorder 300.02 Active 14688749 Problem Major depressive disorder, recurrent episode, mild 296.31 Active 14931026 Problem Obsessive compulsive disorder F42 Active 704612086 Problem Unspecified episodic mood disorder 296.90 Active 674789348 Problem Major depressive disorder, recurrent episode, moderate 296.32 Active 89265179 ALLERGIES No Known Allergies ENCOUNTERS Encounter Location Date Diagnosis [facility] [id number] [place] [address]- [address]20 Apr, [facility] [address] [address]- [address] Apr, [facility] [address] [address]- [address] Apr, Altered mental status, unspecified altered mental status type R41.82 ; Obsessive-compulsive disorder, unspecified F42.9 ; Developmental non-verbal 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 ; BMI 40.0-44.9, adult Z68.41 and Recurrent UTI N39.0 [place] [address] [address] Mar, Altered mental status, unspecified altered mental status type R41.82 ; Tachycardia R00.0 ; Acute cystitis without hematuria N30.00 and Bacteremia R78.81 [facility] [address] [address]- [address] Mar, [facility] [id number] [place] [address] 01714- 2726 Mar, [place] [id number] [place] [address] 71668- 9095 Feb, [facility] [id number] [place] [address] 43870- 5710 Feb, Dysuria R30.0 [place] [address] [address]- 7449 Feb, Dysuria R30.0 ; Acute cystitis without hematuria N30.00 and Tachycardia R00.0 [facility] [id number] [place] [address]779 -7240 Feb, Coarse tremors G25.2 and BMI 45.0-49.9, adult Z68.42 [place] [id number] [place] [address] 75212- 2129 Jan, [facility] [id number] [place] [address] 81188- 2116 Jan, Major depressive disorder, recurrent episode, in partial remission F33.41 [place] [address] 48757- 4717 Dec, Hyperglycemia R73.9 ; Hyperlipidemia, unspecified hyperlipidemia type E78.5 ; Body mass index (BMI) of 40.0-44.9 in adult Z68.41 and MR (mental retardation) F79 [place] [id number] [place] [address] 41868- 0647 November, Major depressive disorder, recurrent episode, in partial remission F33.41 ; Mental retardation F79 ; Obsessive compulsive disorder F42 and BMI 50.0-59.9, adult Z68.43 [place] [id number] [place] [address] 22731- 1488 Oct, [facility] [id number] [place] [address] 6[address]33 -1087 Jul, Acute nasopharyngitis J00 and Vomiting, intractability of vomiting not specified, presence of nausea not specified, unspecified vomiting type R11.10 [place] [id number] [place] [address] 81190- 8592 Jul, BMI 45.0-49.9, adult Z68.42 ; Major depressive disorder, recurrent episode, in partial remission F33.41 ; Mental retardation F79 and Obsessive compulsive disorder F42 [place] [id number] [place] [address] 76767- 2047 Jul, High risk medication use Z79.899 [facility] [id number] [place] [address] 42334- 4382 Jun, Morbid (severe) obesity due to excess calories E66.01 ; Body mass index (BMI) of 40.0-44.9 in adult Z68.41 ; Mental retardation F79 ; Elevated blood pressure reading R03.0 ; Screening for diabetes mellitus (DM) Z13.1 and Screening for lipid disorders Z13.220 [facility] [address] [address] 13 May, 2017 High risk medication use Z79.899 ; Major depressive disorder , recurrent episode, in partial remission F33.41 ; Mental retardation F79 and Obsessive compulsive disorder F42 [facility] [address] [address] 9361 May, [facility] [id number] [place] [address] 52948- 3901 Apr, [place] [id number] [id number] Mar, [facility] [id number] [place] [address] 02317- 5829 Jan, Major depression, recurrent F33.9 ; Mental retardation F79 and Obsessive compulsive disorder F42 [facility] [id number] [place] [address] 01400- 1186 November, Major depression, recurrent F33.9 and Obsessive compulsive disorder F42 [facility] [address] [address]- 2223 Sep, [facility] [id number] [place] [address] 70279- 5429 Jun, Obsessive compulsive disorder F42 ; Mental retardation F79 and Major depressive disorder, recurrent episode, in partial remission F33.41 [facility] [id number] [place] [address] 80458- 8970 Apr, [facility] [id number] [place] [address] 40820- 4115 Apr, Major depression, recurrent F33.9 ; Obsessive compulsive disorder F42 and Mental retardation F79 [facility] [id number] [place] [address] 97674- 4801 Jan, [facility] [id number] [address] Jan, Major depression, recurrent F33.9 ; Obsessive compulsive disorder F42 and Mental retardation F79 [facility] [id number] [address]- 1969 Dec, [facility] [id number] [address]- 3905 November, [facility] [id number] [address]- 6991 November, [facility] [id number] [address]- 4937 Oct, [facility] [id number] [address]- 6612 Oct, Obsessive compulsive disorder F42 ; Major depression, recurrent F33.9 and Mental retardation F79 [facility] [id number] [address]- 1096 Sep, [facility] [id number] [address]- 6066 Aug, [facility] [address] [address]- 3243 Aug, [facility] [id number] [address]- 1628 Aug, [facility] [id number] [address]- 7082 Jul, [facility] [id number] [address]- 2735 Jul, [facility] [id number] [address]- 4915 Jul, [facility] [address] [address]- 7994 Jun, Obsessive compulsive disorder F42 ; Major depression, recurrent F33.9 and Mental retardation F79 [facility] [id number] [place] [address] 62543- 5041 Jun, [facility] [id number] [place] [address] 02371- 0486 Jun, [facility] [id number] [place] [address] 17346- 8743 May, [facility] [id number] [place] [address] 33501- 9711 15 Apr, 2015 [facility] [id number] [place] [address] 786075- 4845 30 Mar, 2015 Generalized anxiety disorder 300.02 and Major depressive disorder, recurrent episode, mild 296.31 [facility] [id number] [place] [address] 08330- 7607 14 Mar, 2015 [facility] [id number] [place] [address] 30919- 3053 Feb, [facility] [id number] [place] [address] 33258- 7425 Jan, [facility] [id number] [place] [address] 34937- 9234 10 Dec, 2014 Generalized anxiety disorder 300.02 and Depressive disorder , not elsewhere classified 311 [facility] [id number] [place] [address] 62002- 2695 14 Oct, 2014 [facility] [id number] [place] [address] 31933- 9834 13 Oct, 2014 [facility] [id number] [place] [address] 457946- 9509 11 Sep, 2014 [facility] [id number] [place] [address] 62236- 5989 11 Sep, 2014 [facility] [id number] [place] [address] 79719- 5410 Jun, [facility] [place] [facility] [address] [id number] [place] [address]- 4796 Jun, [facility] [place] [facility] [address] [id number] [place] [address]- 9585 May, [facility] [place] [facility] [address] [id number] [place] [address]66 May, [facility] [place] [facility] [address] [id number] [place] [address]- 1441 May, [facility] [place] [facility] [address] [id number] [place] [address]- 8026 Apr, [facility] [place] [facility] [address] [id number] [place] [address]- 5498 Apr, [facility] [place] [facility] [address] [id number] [place] [address]- 9035 Feb, [facility] [place] [facility] [address] [id number] [place] [address]- 8570 Jan, [facility] [place] [facility] [address] [id number] [place] [address]- 5813 Jan, [facility] [place] [facility] [address] [id number] [place] [address]- 5331 Dec, [facility] [place] [facility] [address] [id number] [place] [address]- 7441 Dec, [facility] [place] [facility] [address] [id number] [place] [address]- 2449 Oct, [facility] [place] [facility] [address] [id number] [place] [address]- 7405 Oct, [facility] [place] [facility] [address] [id number] [place] [address]- 4203 Oct, [facility] [place] [facility] [address] [id number] [place] 7860 Oct, [facility] [place] [facility] [address] [id number] [address]- 4730 Sep, [facility] [place] [facility] [address] [id number] [place] [address]- 5413 Sep, [facility] [place] [facility] [address] [id number] [place] [address]- 0671 Sep, [facility] [place] [facility] [address] [id number] [place] [address]- 0955 Sep, [facility] [place] [facility] [address] [id number] [place] [address]- 3888 Aug, [facility] [place] [facility] [address] [id number] [place] [address]- 8423 Aug, [facility] [place] [facility] [address] [id number] [place] [address]- 0326 Aug, [facility] [place] [facility] [address] [id number] [place] [address]- 7991 Aug, [facility] [place] [facility] [address] [id number] [place] [address]- 0935 Jul, [facility] [place] [facility] [address] [id number] [place] [address]- 7553 Jul, [facility] [place] [facility] [address] [facility] [id number] [place] [address]- 3352 Jul, [facility] [place] [facility] [address] [id number] [place] [address]- 8130 Jul, [facility] [place] [facility] [address] [id number] [address]- 9133 Jul, [facility] [place] [facility] [address] [id number] [place] [address]- 2451 Jul, [facility] [place] [facility] [address] [id number] [place] [address]- 4227 Apr, [facility] [place] [facility] [address] [id number] [place] [address]- 2160 Apr, [facility] [place] [facility] [address] [id number] [place] [address]- 6057 Apr, 2012 [facility] [place] [facility] [address] [id number] [place] [address]- 9987 24 Apr, 2013 [facility] [place] [facility] [address] [id number] [place] [address]- 3971 Apr, [facility] [place] [facility] [address] [id number] [place] [address]- 0914 Apr, 2012 [facility] [place] [facility] [address] [id number] [place] [address]- 8401 18 Apr, 2013 [facility] [place] [facility] [address] [id number] [place] [address]- 5086 18 Apr, 2013 [facility] [place] [facility] [address] [id number] [place] [address]- 3690 17 Apr, 2013 [facility] [place] [facility] [address] [id number] [place] [address]- 8264 17 Apr, 2013 [facility] [place] [facility] [address] [id number] [place] [address]- 6361 16 Apr, 2013 [facility] [place] [facility] [address] [id number] [place] [address]- 5060 16 Apr, 2013 [facility] [place] [facility] [address] [id number] [place] [address]- 2871 16 Apr, 2013 [facility] [place] [facility] [address] [id number] [address]- 2737 16 Apr, 2012 [facility] [place] [facility] [address] [id number] [place] [address]- 1796 18 Mar, 2013 [facility] [place] [facility] [address] [id number] [place] [address]- 9534 17 Mar, 2012 [facility] [place] [facility] [address] [id number] [place] [address]- 6257 16 Mar, 2012 [facility] [place] [facility] [address] [id number] [place] [address]- 2546 Mar, [facility] [place] [facility] [address] [id number] [place] [address]- 8877 Feb, [facility] [place] [facility] [address] [id number] [place] [address]- 1050 Feb, [facility] [place] [facility] [address] [id number] [place] [address]- 5915 Jan, [facility] [place] [facility] [address] [id number] [place] [address]- 4958 Jan, [facility] [place] [facility] [address] [id number] [place] [address]- 2540 Jan, [facility] [place] [facility] [address] [id number] [place] [address]- 9335 Jan, [facility] [place] [facility] [address] [id number] [place] [address]- 5930 Jan, [facility] [place] [facility] [address] [id number] [place] [address]- 6128 Jan, [facility] [place] [facility] [address] [id number] [place] [address]- 5633 Jan, [facility] [place] [facility] [address] [id number] [place] [address]- 5466 Jan, [facility] [place] [facility] [address] [id number] [place] [address]- 9326 Dec, [facility] [place] [facility] [address] [id number] [place] [address]- 9995 Dec, [facility] [place] [facility] [address] [id number] [place] [address]- 8090 Dec, [facility] [place] [facility] [address] [id number] [place] [address]- 6146 Dec, [facility] [place] [facility] [address] [id number] [place] [address]- 9949 Dec, [facility] [place] [facility] [address] [id number] [place] [address]- 2303 20 Dec, 2012 [facility] [address] [id number] [place] [address]- 4654 Dec, [facility] [address] [id number] [place] [address]- 3472 Dec, [facility] [address] [id number] [place] [address]- 4651 Dec, [facility] [address] [id number] [place] [address]- 8311 November, [facility] [address] [id number] [place] [address]- 4539 Oct, [facility] [address] [id number] [place] [address]- 6375 Oct, [facility] [address] [id number] [place] [address]- 1594 Oct, [facility] [address] [id number] [place] [address]- 3821 Oct, [facility] [address] [id number] [place] [address]- 9624 Oct, [facility] [address] [id number] [place] [address]- 8664 Oct, [facility] [address] [id number] [place] [address]- 6405 Aug, [facility] [address] [id number] [place] [address]- 3016 Aug, [facility] [address] [id number] [place] [address]- 5758 Jul, [facility] [address] [id number] [place] [address]- 8116 Jul, [facility] [address] [id number] [place] 2202 Jul, [facility] [address] [id number] [place] [address]- 5304 Jul, [facility] [place] [facility] [address] [id number] [place] [address]- 0761 Jul, [facility] [place] [facility] [address] [id number] [place] [address]- 5795 Jul, [facility] [place] [facility] [address] [id number] [place] [address]- 6517 Jul, [facility] [place] [facility] [address] [id number] [place] [address]- 8360 Jun, [facility] [place] [facility] [address] [id number] [place] [address]- 1946 Jun, [facility] [place] [facility] [address] [id number] [place] [address]- 1362 Jun, [facility] [place] [facility] [address] [id number] [place] [address]- 9277 Jun, [facility] [place] [facility] [address] [id number] [place] [address]- 1724 Jun, [facility] [place] [facility] [address] [id number] [place] [address]- 5112 Apr, [facility] [place] [facility] [address] [id number] [place] [address]- 7631 Apr, [facility] [place] [facility] [address] [id number] [address]- 3436 Apr, [facility] [place] [facility] [address] [id number] [place] [address]- 7711 Mar, [facility] [place] [facility] [address] [id number] [place] [address]- 0711 Feb, [facility] [place] [facility] [address] [id number] [place] [address]- 8064 Jan, [facility] [place] [facility] [address] [id number] [place] [address]- 6256 Jan, [facility] [place] [address] [id number] [place] [address]- 6647 Dec, [facility] [address] [facility] [id number] [place] [address]- 8606 November, [facility] [address] [facility] [id number] [place] [address] Oct, [facility] [address] [facility] [id number] [place] [address] Sep, [facility] [address] [facility] [id number] [place] [address] Sep, [facility] [address] [facility] [id number] [place] [address] Aug, [facility] [id number] [address] Aug, [facility] [address] [facility] [id number] [place] [address] Aug, [facility] [id number] [address] Jul, [facility] [address] [facility] [id number] [address] Jul, [facility] [place] [id number] [address] Jun, [facility] [address] [facility] [id number] [address] Jun, [facility] [address] [facility] [id number] [address] May, [facility] [address] [facility] [id number] [place] [address] Apr, [facility] [address] [id number] [address] Apr, IMMUNIZATIONS No Known Immunizations SOCIAL HISTORY Never Assessed REASON FOR VISIT Hospital f/u VC, states he was having fever and decided going to hospital -- michael gonzalez PLAN OF CARE Activity Details Follow Up Michelle will see patient in ID Reason: VITAL SIGNS Height 65 in 2018-04-18 Weight 265.0 lbs 2018-04-18 Temperature 98.6 degrees Fahrenheit 2018-04-18 Heart Rate 102 bpm 2018-04-18 Respiratory Rate 22 2018-04-18 BMI 44.09 kg/m2 2018-04-18 Blood pressure systolic 138 mmHg 2018-04-18 Blood pressure diastolic 86 mmHg 2018-04-18 MEDICATIONS Medication Instructions Dosage Frequency Start Date End Date Duration Status Omeprazole 20MG Orally Once a day 1 capsule 24h 30 Active Clonazepam 0.5 MG Orally as needed Once a day 1 tablet 24h Sep, 30 days Active Latuda 60 MG Orally Once a day 1 tablet with food 24h 30 days Active Montelukast Sodium 10 MG Orally Once a day 1 tablet 24h 30 day(s) Active RESULTS No Results PROCEDURES Procedure Date Ordered Result Body Site [facility] VISIT ESTABLISHED PATIENT Apr 18, 2018 INSTRUCTIONS MEDICATIONS ADMINISTERED No Known Medications MEDICAL (GENERAL) HISTORY Type Description Date Medical History GERD Surgical History cholecystectomy 2013 Hospitalization History ED [place]- Chest Pain 08/26/2017 Hospitalization History Hospital, UTI/Septic 02/20/18 Hospitalization History viral infection 03/07/18
== END 2018-08-01 17:13 | disposition home or self-care (01) ==
LOC: EDUNIT# 16:19 → ER 16:20
DX: S30.810A Abrasion of lower back and pelvis, initial encounter (principal); J45.909 Unspecified asthma, uncomplicated; K21.9 Gastro-esophageal reflux disease without esophagitis; F42.9 Obsessive-compulsive disorder, unspecified; F41.9 Anxiety disorder, unspecified; F32.9 Major depressive disorder, single episode, unspecified; Z87.440 Personal history of urinary (tract) infections; X58.XXXA Exposure to other specified factors, initial encounter
CPT/HCPCS: 99282

== ENCOUNTER 2018-10-20 17:19 | Emergency (ER) | payer MEDICARE, MEDICAID ==
[~2018-10-20] VITALS: Ht 165.1 cm; Wt 95.4 kg
[~2018-10-20 17:19] MED LIST changes: +CEPH-507 PO; +MUPI22OI2 TP; +PERM60CR4 TP
--- NOTE | 2018-10-20 17:19 | NUR ---
Patient acknowledges pain diffusely to entire chest.
[2018-10-20 17:45] LABS: BASOPHILS % (AUTO) 0 % (0-10); EOSINOPHILS # (AUTO) 0.2 10^3/uL (0.0-0.3); EOSINOPHILS % (AUTO) 2 % (0-10); HEMATOCRIT 47 % (40-54); HEMOGLOBIN 16.1 G/DL (13.3-17.7); LYMPHOCYTES # (AUTO) 1.1 X 10^3 (1.0-4.0); LYMPHOCYTES % (AUTO) 11 % (12-44); MEAN CORPUSCULAR HEMOGLOBIN 28 PG (25-34); MEAN CORPUSCULAR HGB CONC 34 G/DL (32-36); MEAN CORPUSCULAR VOLUME 83 FL (80-99); MEAN PLATELET VOLUME 9.9 FL (7.4-10.4); MONOCYTES # (AUTO) 0.8 X 10^3 (0.0-1.0); MONOCYTES % (AUTO) 8 % (0-12); NEUTROPHILS # (AUTO) 8.2 X 10^3 (1.8-7.8); NEUTROPHILS % (AUTO) 80 % (42-75); PLATELET COUNT 409 10^3/uL (130-400); RED CELL DISTRIBUTION WIDTH 13.1 % (10.0-14.5); WHITE BLOOD COUNT 10.3 10^3/uL (4.3-11.0)
[2018-10-20] MEDS ORDERED: ASPIRIN 81 MG CHEW (CHILDREN'S ASA) PO ONE (17:45)
--- NOTE | 2018-10-20 17:54 | ED Chest Pain ---
General Chief Complaint: Chest Pain Stated Complaint: CHEST PAIN Nursing Triage Note: ambulated to room 5 with father. Very difficult to obtain information from both parties. Father did state that patient was shopping with him and began holding his left side of chest a short time ago- maybe less than one hour. Would state it hurt. no sweating or vomiting. no cough and no illness. Father did state he is not resting well and wonders the house which is different for him Nursing Sepsis Screen: No Definite Risk Source: family Exam Limitations: no limitations History of Present Illness Date Seen by Provider: Oct 20, 2018 Time Seen by Provider: 17:51 Initial Comments This essentially nonverbal MR pt to ER by father who is primary caregiver with c /o chest pain. Father noted pt to be holding right arm over the left anterior chest today. Father asked if his chest hurt and pt replied "ya". However, the pts response to any questions asked is "ya". Timing/Duration: changing over time Severity/Quality: mild Location: central Radiation: no radiation Activities at Onset: none ASA po HOME ECONOMIST: No NTG SL HOME ECONOMIST: No Allergies and Home Medications Allergies Coded Allergies: NKANo Known Allergies (Unverified Allergy, Mild, 10/20/18) Home Medications Cephalexin 500 Mg Capsule, 500 MG PO TID Prescribed by: ADALGISA MAHER on 08/01/181701 Clonazepam 0.5 Mg Tablet, 0.5 MG PO DAILY PRN for ANXIETY, (Reported) Doxycycline Hyclate 100 Mg Tablet, 100 MG PO BID, (Reported) Lurasidone HCl 60 Mg Tablet, 60 MG PO DAILY, (Reported) Montelukast Sodium 10 Mg Tablet, 10 MG PO HS, (Reported) Mupirocin 22 Gm Oint...g., 1 GM TP BID Apply to left buttock Prescribed by: ADALGISA MAHER on 08/01/181701 Omeprazole 20 Mg Capsule.dr, 20 MG PO DAILY, (Reported) Permethrin 60 Gm Cream..g., 60 GM TP ONCE Prescribed by: ADALGISA MAHER on 08/01/181701 Propranolol HCl 20 Mg Tablet, 20 MG PO BID, (Reported) Patient Home Medication List Home Medication List Reviewed: Yes Review of Systems Review of Systems Constitutional: see HPI, other (ROS per pt's father..) EENTM: No Symptoms Reported Respiratory: No Symptoms Reported Cardiovascular: See HPI, Chest Pain Gastrointestinal: No Symptoms Reported Genitourinary: No Symptoms Reported Musculoskeletal: no symptoms reported Skin: no symptoms reported Psychiatric/Neurological: No Symptoms Reported Past Dpccijk-Jqtrjt-Uqqjdl Hx Patient Social History Alcohol Use: Denies Use Recreational Drug Use: No Smoking Status: Never a Smoker 2nd Hand Smoke Exposure: No Recent Foreign Travel: No Contact w/Someone Who Travel: No Recent Infectious Disease Expo: No Recent Hopitalizations: No Physical Abuse: No Sexual Abuse: No Mistreated: No Fear: No Immunizations Up To Date Tetanus Booster (TDap): Unknown Date of Influenza Vaccine: Jun 02, 2012 Seasonal Allergies Seasonal Allergies: Yes Past Medical History Surgeries: Yes Gallbladder Respiratory: Yes Asthma Cardiac: No 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 6.0oz. 95.582625cq; 36.8 BMI Method:Stated General Appearance: No Apparent Distress, WD/WN, Other (asked how he is, he replies "ya". ) HEENT: PERRL/EOMI, TMs Normal Neck: Full Range of Motion, Normal Inspection Respiratory: No Accessory Muscle Use, No Respiratory Distress Cardiovascular: Normal Peripheral Pulses, Tachycardia Gastrointestinal: Normal Bowel Sounds, Non Tender, Soft Extremity: Normal Capillary Refill, Normal Inspection Neurologic/Psychiatric: Alert, Oriented x3, No Motor/Sensory Deficits Skin: Normal Color, Warm/Dry Progress/Results/Core Measures Results/Orders Lab Results Laboratory Tests Test 10/20/18 17:34 Range/Units White Blood Count 10.3 4.3-11.0 10^3/uL Red Blood Count 5.69 4.35-5.85 10^6/uL Hemoglobin 16.1 13.3-17.7 G/DL Hematocrit 47 40-54 % Mean Corpuscular Volume 83 80-99 FL Mean Corpuscular Hemoglobin 28 25-34 PG Mean Corpuscular Hemoglobin Concent 34 32-36 G/DL Red Cell Distribution Width 13.1 10.0-14.5 % Platelet Count 409 H 130-400 10^3/uL Mean Platelet Volume 9.9 7.4-10.4 FL Neutrophils (%) (Auto) 80 H 42-75 % Lymphocytes (%) (Auto) 11 L 12-44 % Monocytes (%) (Auto) 8 0-12 % Eosinophils (%) (Auto) 2 0-10 % Basophils (%) (Auto) 0 0-10 % Neutrophils # (Auto) 8.2 H 1.8-7.8 X 10^3 Lymphocytes # (Auto) 1.1 1.0-4.0 X 10^3 Monocytes # (Auto) 0.8 0.0-1.0 X 10^3 Eosinophils # (Auto) 0.2 0.0-0.3 10^3/uL Basophils # (Auto) 0.0 0.0-0.1 10^3/uL Sodium Level 138 135-145 MMOL/L Potassium Level 4.3 3.6-5.0 MMOL/L Chloride Level 103 98-107 MMOL/L Carbon Dioxide Level 25 21-32 MMOL/L Anion Gap 10 5-14 MMOL/L Blood Urea Nitrogen 13 7-18 MG/DL Creatinine 1.06 0.60-1.30 MG/DL Estimat Glomerular Filtration Rate > 60 BUN/Creatinine Ratio 12 Glucose Level 96 70-105 MG/DL Calcium Level 9.9 8.5-10.1 MG/DL Corrected Calcium 9.6 8.5-10.1 MG/DL Magnesium Level 2.4 1.8-2.4 MG/DL Total Bilirubin 0.7 0.1-1.0 MG/DL Aspartate Amino Transf (AST/SGOT) 16 5-34 U/L Alanine Aminotransferase (ALT/SGPT) 29 0-55 U/L Alkaline Phosphatase 63 40-136 U/L Myoglobin 26.9 10.0-92.0 NG/ML Troponin I < 0.028 <0.028 NG/ML Total Protein 7.4 6.4-8.2 GM/DL Albumin 4.4 3.2-4.5 GM/DL Lipase 13 8-78 U/L My Orders Orders - ADALGISA MAHER DIRECTOR OF [employer] Ns Iv 1000 Ml (Sodium Chloride 0.9%) (10/20/18 18:00) Metoprolol Tartrate (Ir) Tab (Lopressor (10/20/18 18:00) Abdomen, Flat & Upright/Decub (10/20/18 18:35) Iohexol Injection (Omnipaque 350 Mg/Ml 1 (10/20/18 19:30) Di Iv Start (Assessment) .IV start (10/20/18 19:19) Received Contrast (Hold Metformin- Contr (10/20/18 19:30) Sodium Chloride Flush (Catheter Flush Sy (10/20/18 19:30) Ct Ellen Chest/Noang Abd-Pelv W (10/20/18 19:21) Medications Given in ED Current Medications Medications Dose Ordered Sig/Yudi Route Start Time Stop Time Status Last Admin Dose Admin Aspirin 324 mg ONCE ONCE PO 10/20/18 17:45 10/20/18 17:46 DC 10/20/18 17:41 324 MG Iohexol 150 ml ONCE ONCE IV 10/20/18 19:30 10/20/18 19:31 DC 10/20/18 19:47 125 ML Metoprolol Tartrate 25 mg ONCE ONCE PO 10/20/18 18:00 10/20/18 18:01 DC 10/20/18 18:31 25 MG Sodium Chloride 10 ml NEEDED PRN IV 10/20/18 19:30 10/20/18 19:47 10 ML Vital Signs/I&O 10/20/18 10/20/18 10/20/18 17:19 17:19 17:23 Temp 98.8 Pulse 110 Resp 16 B/P (MAP) 156/108 (124) Pulse Ox 100 100 O2 Delivery Nasal Cannula Nasal Cannula Nasal Cannula O2 Flow Rate 2.00 2.0 2.00 FiO2 100 Blood Pressure Mean: 124 Diagnostic Imaging Diagonstic Imaging: Xray Comments NAME: JESSICAKIMMYPADILLAYOLY Ezra [facility] REC#: [id number] PT STATUS: REG ER : 1980 PHYSICIAN: SARAH ABDI MD ADMIT DATE: 10/20/18/ER Draft Date of Exam:10/20/18 CHEST 1 VIEW, AP/PA ONLY INDICATION: Chest pain today. TECHNIQUE: Single-view chest. 5:57 p.m. CORRELATION STUDY: 04/10/2018. FINDINGS: Limited depth of inspiration. Given this, heart size does appear to be borderline enlarged. Vascularity is slightly accentuated by technique. Lung rosario appearing generally clear. The stomach is rather significantly distended with gas and retained gastric contents. IMPRESSION: 1. Low lung volumes likely accentuating heart and vasculature. No definitive infiltrate. 2. Note is made of a prominent distention of the stomach with gas and retained gastric contents. Dictated on workstation # [id number] Dict: 10/20/181801 Trans: 10/20/181805 2230-0820 Interpreted by: NITA MOLINA DO Electronically signed by: Departure Impression Primary Impression: Chest pain Qualified Codes: R07.9 - Chest pain, unspecified Disposition: 01 HOME, SELF-CARE Condition: Stable Departure-Patient Inst. Decision time for Depature: 20:17 Referrals: JOAO KULKARNI MD (PCP/Family) Primary Care Physician Patient Instructions: Chest Pain (DC) Add. Discharge Instructions: 1. Follow-up with his regular doctor tomorrow. Return to ER for any concerns or worsening symptoms. All discharge instructions reviewed with patient and/or family. Voiced understanding. ADALGISA MAHER DIRECTOR OF [employer]KS Oct 20, 2018 17:54
[2018-10-20] MEDS ORDERED: NS IV 1000 ML 1,000 ML IV SCH (18:00)
[2018-10-20] MEDS ORDERED: meTOprolol TARTRATE 25 MG (LOPRESSOR) TABLET PO ONE (18:00)
[2018-10-20 18:03] LABS: ALANINE AMINOTRANSFERASE 29 U/L (0-55); ALBUMIN 4.4 GM/DL (3.2-4.5); ALKALINE PHOSPHATASE 63 U/L (40-136); BILIRUBIN,TOTAL 0.7 MG/DL (0.1-1.0); BUN/CREATININE RATIO 12; CALCIUM 9.9 MG/DL (8.5-10.1); CARBON DIOXIDE 25 MMOL/L (21-32); CHLORIDE 103 MMOL/L (98-107); CREATININE SERUM 1.06 MG/DL (0.60-1.30); GFR ESTIMATED > 60; GLUCOSE 96 MG/DL (70-105); LIPASE 13 U/L (8-78); MAGNESIUM 2.4 MG/DL (1.8-2.4); POTASSIUM 4.3 MMOL/L (3.6-5.0); SODIUM 138 MMOL/L (135-145); TOTAL PROTEIN 7.4 GM/DL (6.4-8.2)
--- NOTE | 2018-10-20 18:06 | Diagnostic Imaging Report ---
INDICATION: Chest pain today. TECHNIQUE: Single-view chest. 5:57 p.m. CORRELATION STUDY: 04/10/2018. FINDINGS: Limited depth of inspiration. Given this, heart size does appear to be borderline enlarged. Vascularity is slightly accentuated by technique. Lung rosario appearing generally clear. The stomach is rather significantly distended with gas and retained gastric contents. IMPRESSION: 1. Low lung volumes likely accentuating heart and vasculature. No definitive infiltrate. 2. Note is made of a prominent distention of the stomach with gas and retained gastric contents. Dictated by: Dictated on workstation # [id number]
--- NOTE | 2018-10-20 19:02 | Diagnostic Imaging Report ---
INDICATION: Chest pain, distended stomach Supine and upright views of the abdomen show considerable distention of the stomach that is filled with air and fluid. There are nondilated loops of small bowel and colon. No bowel wall edema is seen. No intramural or free intraperitoneal air is seen. There is no mass or calculus. IMPRESSION: The changes are most consistent with an ileus. There may be gastroparesis present. Dictated by: Dictated on workstation # [id number]
--- OUTSIDE RECORDS SUMMARY | 2018-10-20 19:14 | XMS REPORT ---
Author Author Migration, Doctor Organization [facility] Address Unknown Phone Unavailable Care Team Providers Care Payment Poster Name Role Phone Migration, Doctor Unavailable Unavailable PROBLEMS Type Condition ICD9-CM Code RBO26-YB Code Onset Dates Condition Status SNOMED Code Problem Obsessive compulsive disorder F42 Active 698724031 Problem Major depressive disorder, recurrent episode, in partial remission F33.41 Active 39203767 Problem Major depression, recurrent F33.9 Active 66678914 Problem MR (mental retardation) F79 Active 833913146 Problem Morbid (severe) obesity due to excess calories E66.01 Active 34495438935012 Problem Coarse tremors G25.2 Active 50486708 Problem Altered mental status, unspecified altered mental status type R41.82 Active 221162006 Problem Developmental non-verbal 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 Active 417987416 Problem Dementia without behavioral disturbance, unspecified dementia type F03.90 Active 38115146 Problem Essential tremor G25.0 Active 419232474 Problem Moderate intellectual disabilities F71 Active 46502191 Problem Hyperlipidemia, unspecified hyperlipidemia type E78.5 Active 15931636 Problem Obsessive-compulsive disorder, unspecified F42.9 Active 125217198 Problem BMI 40.0-44.9, adult Z68.41 Active 221805052 Problem Urinary incontinence, nocturnal enuresis N39.44 Active 6943125 Problem Constipation, unspecified constipation type K59.00 Active 23455123 ALLERGIES No Information ENCOUNTERS Encounter Location Date Diagnosis [facility] [address] [facility] [id number] [address] Jul, Yeast dermatitis B37.2 [facility] [address] [address] Jun, Coarse tremors G25.2 ; Urinary incontinence, nocturnal enuresis N39.44 and Dementia without behavioral disturbance, unspecified dementia type F03.90 [facility] [address] [place] [id number] [address] Apr, [place] [id number] [place] [address] 22763- 2851 Apr, Dementia without behavioral disturbance, unspecified dementia type F03.90 [place] [address] [place] [id number] [place] [id number] Apr, [place] [address] [place] [id number] [place] [address] 88006- 0141 Apr, [place] [address] [id number] [place] [address] 77890- 2337 Apr, Moderate intellectual disabilities F71 ; Morbid (severe) obesity due to excess calories E66.01 ; Coarse tremors G25.2 ; Urinary incontinence, nocturnal enuresis N39.44 ; Dementia without behavioral disturbance, unspecified dementia type F03.90 and At risk for falls Z91.81 [place] [id number] [place] [address] 26900- 9675 Apr, Constipation, unspecified constipation type K59.00 ; Urinary incontinence, nocturnal enuresis N39.44 ; MR (mental retardation) F79 and Obsessive-compulsive disorder, unspecified F42.9 [place] [address] [id number] [place] [address] 26980- 9778 Apr, [place] [address] [id number] [place] [address] 36322- 9394 Apr, Altered mental status, unspecified altered mental status type R41.82 ; Obsessive-compulsive disorder, unspecified F42.9 ; Developmental non-verbal 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 ; BMI 40.0-44.9, adult Z68.41 and Recurrent UTI N39.0 [place] [id number] [place] [address] 78567- 6891 Mar, Altered mental status, unspecified altered mental status type R41.82 ; Tachycardia R00.0 ; Acute cystitis without hematuria N30.00 and Bacteremia R78.81 [place] [id number] [place] [address] 56263- 3870 Mar, [place] [id number] [place] [address] 05660- 5887 Mar, [place] [id number] [place] [address] 71739- 4050 Feb, [place] [id number] [place] [address] 47796- 0007 Feb, Dysuria R30.0 [place] [address] [id number] [place] [address] 29624- 7751 Feb, Dysuria R30.0 ; Acute cystitis without hematuria N30.00 and Tachycardia R00.0 [facility] [place] [id number] [place] [address] 37735 -2373 Feb, Coarse tremors G25.2 and BMI 45.0-49.9, adult Z68.42 [place] [address] [id number] [place] [address] 66635- 1225 Jan, [place] [address] [id number] [place] [address] 31908- 0980 Jan, Major depressive disorder, recurrent episode, in partial remission F33.41 [place] [address] [id number] [place] [address] 44270- 3276 Dec, Hyperglycemia R73.9 ; Hyperlipidemia, unspecified hyperlipidemia type E78.5 ; Body mass index (BMI) of 40.0-44.9 in adult Z68.41 and MR (mental retardation) F79 [place] [id number] [place] [address] 68833- 6153 November, Major depressive disorder, recurrent episode, in partial remission F33.41 ; Mental retardation F79 ; Obsessive compulsive disorder F42 and BMI 50.0-59.9, adult Z68.43 [place] [address] [place] [address] 64839- 4663 Oct, [facility] [address] [address] [id number] [place] [address] 37102 -5527 Jul, Acute nasopharyngitis J00 and Vomiting, intractability of vomiting not specified, presence of nausea not specified, unspecified vomiting type R11.10 [place] [address] [address] Jul, BMI 45.0-49.9, adult Z68.42 ; Major depressive disorder, recurrent episode, in partial remission F33.41 ; Mental retardation F79 and Obsessive compulsive disorder F42 [place] [address] [id number] [place] [address] 34741- 2375 Jul, High risk medication use Z79.899 [place] [address] [id number] [place] [address] 89469- 3884 Jun, Morbid (severe) obesity due to excess calories E66.01 ; Body mass index (BMI) of 40.0-44.9 in adult Z68.41 ; Mental retardation F79 ; Elevated blood pressure reading R03.0 ; Screening for diabetes mellitus (DM) Z13.1 and Screening for lipid disorders Z13.220 [place] [id number] [place] [address] 28584- 9884 May, High risk medication use Z79.899 ; Major depressive disorder , recurrent episode, in partial remission F33.41 ; Mental retardation F79 and Obsessive compulsive disorder F42 [address] [address] May, [place] [id number] [place] [address] 11840- 7042 Apr, [facility] [place] [id number] [facility] [id number] [id number] Mar, [place] [id number] [place] [address] 68080- 2848 Jan, Major depression, recurrent F33.9 ; Mental retardation F79 and Obsessive compulsive disorder F42 [address] [place] [address] 81863- 6084 November, Major depression, recurrent F33.9 and Obsessive compulsive disorder F42 [facility] [address] [address] Sep, [facility] [address] [id number] [place] [address] 78642- 1970 Jun, Obsessive compulsive disorder F42 ; Mental retardation F79 and Major depressive disorder, recurrent episode, in partial remission F33.41 [facility] [address] [id number] [place] [address] 48089- 2258 Apr, [facility] [address] [id number] [place] [address] 45771- 6798 Apr, Major depression, recurrent F33.9 ; Obsessive compulsive disorder F42 and Mental retardation F79 [facility] [address] [address] Jan, [facility] [address] [id number] [place] [address] 40067- 0379 Jan, Major depression, recurrent F33.9 ; Obsessive compulsive disorder F42 and Mental retardation F79 [facility] [id number] [place] [address] 24274- 7233 Dec, [facility] [address] [address] November, [facility] [address] [address] 5961 November, [facility] [id number] [address]- 7851 Oct, [facility] [address], [place] [address] 7399 Oct, Obsessive compulsive disorder F42 ; Major depression, recurrent F33.9 [address] Mental retardation F79 [facility] [address] [address]- 0918 16 Sep, 2015 [facility] [id number] [place] [address] 72410- 2546 [address], [address] [facility] [address] [address] [address], [address] [facility] [id number] [place] [address] 00030- 2146 Aug, [facility] [id number] [place] [address] 74380- 3553 Jul, [facility] [id number] [place] [address] 84567- 1077 Jul, [facility] [id number] [place] [address] 32653- 1399 Jul, [facility] [address] [id number] [place] [address] 98877- 7880 Jun, Obsessive compulsive disorder F42 ; Major depression, recurrent F33.[address] F79 [facility] [id number] [place] [address] 73932- 2218 Jun, [facility] [id number] [place] [address] 79227- 6473 Jun, [facility] [id number] [place] [address] 555178- 3017 May, [facility] [address] [address] 8250 Apr, [facility] [address] [place] [id number] [place] [address] 60834- 0445 30 Mar, 2015 Generalized anxiety disorder 300.02 and Major depressive disorder, recurrent episode, mild 296.31 [facility] [address] [address]- 2179 [address], [address] [facility] [address] 7243 Feb, [facility] [address] [address]- 6299 Jan, [facility] [address] [facility] [id number] [place] [address]- 7446 10 Dec, 2014 Generalized anxiety disorder 300.02 and Depressive disorder , not elsewhere classified 311 [facility] [address] [id number] [place] [address]- 6267 14 Oct, 2014 [facility] [address] [facility] [id number] [place] [address]- 5858 Oct, [facility] [address] [facility] [id number] [place] [address]- 4417 Sep, [facility] [address] [facility] [id number] [place] [address]- 5791 Sep, [facility] [address] [facility] [id number] [place] [address]- 8479 Jun, [facility] [address] [place] [address]- 9745 Jun, [facility] [id number] [place] [address]- 9139 May, [facility] [id number] [place] [address]- 5756 May, [facility] [id number] [place] [address]- 4522 May, [facility] [id number] [address]- 1231 Apr, [facility] [id number] [place] [address]- 4794 Apr, [facility] [id number] 0682 Feb, [facility] [place] [facility] [address] [facility] [id number] [place] 6420 Jan, [facility] [place] [facility] [id number] 7539 Jan, [facility] [place] [facility] [address] [id number] [place] [address]- 6526 Dec, [facility] [place] [facility] [address] [id number] [place] [address]- 7189 Dec, [facility] [place] [facility] [address] [id number] [place] [address]- 4351 Oct, [facility] [place] [facility] [address] [id number] [place] [address]- 5244 Oct, [facility] [place] [facility] [address] [id number] [place] [address]- 2274 Oct, [facility] [place] [facility] [address] [id number] [place] [address]- 9132 Oct, [facility] [place] [facility] [address] [id number] [place] [address]- 1837 Sep, [facility] [place] [facility] [address] [id number] [place] [address]- 5825 Sep, [facility] [place] [facility] [address] [id number] [place] [address]- 3859 Sep, [facility] [place] [facility] [address] [id number] [place] [address]- 5875 Sep, [facility] [place] [facility] [address] [id number] [place] [address]- 5492 Aug, [facility] [place] [facility] [address] [id number] [place] [address]- 8566 Aug, [facility] [place] [facility] [address] [id number] [place] [address]- 7131 Aug, [facility] [place] [facility] [address] [id number] [place] [address]- 2569 Aug, [facility] [place] [facility] [address] [id number] [place] [address]- 9211 Jul, [facility] [place] [facility] [address] [id number] [place] [address]- 0323 Jul, [facility] [place] [facility] [address] [id number] [place] [address]- 6241 Jul, [facility] [place] [facility] [address] [id number] [place] [address]- 6483 Jul, [facility] [place] [facility] [address] [id number] [place] [address]- 4323 Jul, [facility] [place] [facility] [address] [id number] [place] [address]- 4556 Jul, [facility] [place] [facility] [address] [id number] [place] [address]- 7094 Apr, [facility] [place] [facility] [address] [id number] [place] [address]- 5620 29 Apr, 2013 [facility] [place] [facility] [address] [id number] [place] [address]- 1453 Apr, [facility] [place] [facility] [address] [id number] [place] [address]- 1594 24 Apr, 2013 [facility] [place] [facility] [address] [id number] [place] [address]- 4276 Apr, [facility] [place] [facility] [address] [id number] [place] [address]- 9297 Apr, [facility] [place] [facility] [address] [id number], [place] [address]- 0296 18 Apr, 2013 [facility] [place] [facility] [address] [id number], [place] [address]- 2272 18 Apr, 2013 [facility] [place] [facility] [address] [id number] [place] [address]- 1326 17 Apr, 2013 [facility] [place] [facility] [address] [id number] [address]- 4652 17 Apr, 2013 [facility] [place] [facility] [address] [id number], [place] [address]- 4555 16 Apr, 2013 [facility] [place] [facility] [address] [id number] [place] [address]- 8745 16 Apr, 2013 [facility] [address] [id number] [place] [address]- 6410 16 Apr, 2013 [facility] [address] [id number] [place] 2313 16 Apr, 2013 [facility] [address] [id number] [place] [address]- 5764 18 Mar, 2013 [facility] [address] [id number] [place] [address]- 9680 17 Mar, 2013 [facility] [address] [id number] [place] [address]- 2358 16 Mar, 2013 [facility] [address] [id number] [place] [address]- 5286 13 Mar, 2013 [facility] [address] [id number] [place] [address]- 6834 Feb, [facility] [address] [id number] [place] [address]- 2522 Feb, [facility] [address] [id number] [place] [address]- 9632 Jan, [facility] [address] [id number] [place] [address]- 4889 Jan, [facility] [address] [id number] [place] [address]- 5990 Jan, [facility] [address] [id number] [place] [address]- 6475 Jan, [facility] [place] [facility] [address] [id number] [place] [address]- 4060 Jan, [facility] [place] [facility] [address] [id number] [place] [address]- 2058 Jan, [facility] [address] [id number] [place] [address]- 8180 05 Jan, 2013 [facility] [place] [facility] [address] [id number] [place] [address]- 4705 Jan, [facility] [place] [facility] [address] [id number] [place] [address]- 2096 Dec, [facility] [place] [facility] [address] [id number] [place] [address]- 2908 Dec, [facility] [place] [facility] [address] [id number] [place] [address]- 4628 Dec, [facility] [place] [facility] [address] [id number] [place] [address]- 3378 Dec, [facility] [place] [facility] [address] [id number] [place] [address]- 0462 Dec, [facility] [place] [facility] [address] [id number] [place] [address]- 6092 Dec, [facility] [place] [facility] [address] [id number] [place] [address]- 6533 Dec, [facility] [place] [facility] [address] [id number] [place] [address]- 4026 Dec, [facility] [place] [facility] [address] [id number] [place] [address]- 1381 Dec, [facility] [place] [facility] [address] [id number] [place] [address]- 1056 November, [facility] [place] [facility] [address] [id number] [place] [address]- 1256 30 Oct, 2012 [facility] [place] [facility] [address] [id number] [place] [address]- 0370 Oct, [facility] [place] [facility] [address] [id number] [place] [address]- 0633 Oct, [facility] [place] [facility] [address] [id number] [place] [address]- 5684 Oct, [facility] [place] [facility] [address] [id number] [address]- 3928 Oct, [facility] [address] [id number] [place] [address]- 5688 Oct, [facility] [address] [id number] [place] [address]- 5413 Aug, [facility] [address] [id number] [place] [address]- 6417 Aug, [facility] [address] [id number] [place] [address]- 8176 Jul, [facility] [address] [id number] [place] [address]- 5564 Jul, [facility] [address] [id number] [place] [address]- 0445 Jul, [facility] [address] [id number] [place] [address]- 2733 Jul, [facility] [address] [id number] [place] [address]- 4630 Jul, [facility] [address] [id number] [place] [address]- 0581 Jul, [facility] [address] [id number] [place] [address]- 6358 Jul, [facility] [address] [id number] [place] [address]- 6172 Jun, [facility] [address] [id number] [place] [address]- 0087 Jun, [facility] [address] [id number] [place] [address]- 5355 Jun, [facility] [address] [id number] [place] [address]- 6643 Jun, [facility] [address] [id number] [place] [address]- 5917 Jun, [facility] [place] [facility] [address] [id number] [place] [address] Apr, [facility] [place] [facility] [address] [id number] [place] [address] Apr, [facility] [place] [facility] [address] [id number] [place] [address] Apr, [facility] [place] [facility] [address] [id number] [place] [address] Mar, [facility] [place] [facility] [address] [id number] [place] [address] Feb, [facility] [place] [facility] [address] [id number] [place] [address] Jan, [facility] [place] [facility] [address] [id number] [place] [address] Jan, [facility] [place] [facility] [address] [id number] [place] [address] Dec, [facility] [place] [facility] [address] [id number] [place] [address] November, [facility] [place] [facility] [address] [id number] [place] [address] Oct, [facility] [place] [facility] [address] [id number] [place] [address] Sep, [facility] [place] [facility] [address] [id number] [place] [address] Sep, [facility] [place] [facility] [address] [id number] [place] [address] Aug, [facility] [place] [facility] [address] [id number] [place] [address] Aug, [facility] [place] [facility] [address] [id number] [place] [address] Aug, [facility] [place] [facility] [address] [id number] [address] Jul, [facility] [address] [facility] [id number] [address] Jul, [facility] [id number] [address] Jun, [facility] [address] [id number] [address] Jun, [facility] [id number] [address] May, [facility] [address] [id number], [place] [address] Apr, [facility] [address] [id number] [address] Apr, IMMUNIZATIONS No Known Immunizations SOCIAL HISTORY Never Assessed [place] [place] VITAL SIGNS MEDICATIONS No Known Medications RESULTS No Results PROCEDURES No Known procedures INSTRUCTIONS MEDICATIONS ADMINISTERED No Known Medications MEDICAL (GENERAL) HISTORY Type Description Date Medical History GERD Surgical History cholecystectomy 2013 Hospitalization History ED [facility]- Chest Pain 08/26/2017 Hospitalization History Hospital, UTI/Septic 02/20/18 Hospitalization History viral infection 03/07/18
--- OUTSIDE RECORDS SUMMARY | 2018-10-20 19:14 | XMS REPORT ---
Author Author Migration, Doctor Organization [facility] Address Unknown Phone Unavailable Care Team Providers Care Integration Software Engineer Name Role Phone Migration, Doctor Unavailable Unavailable PROBLEMS Type Condition ICD9-CM Code [id number] Code Onset Dates Condition Status SNOMED Code Problem Obsessive compulsive disorder F42 Active 371969929 Problem Major depressive disorder, recurrent episode, in partial remission F33.41 Active 88202215 Problem Major depression, recurrent F33.9 Active 34319493 Problem MR (mental retardation) F79 Active 479516349 Problem Morbid (severe) obesity due to excess calories E66.01 Active 66988712657770 Problem Coarse tremors G25.2 Active 67406121 Problem Altered mental status, unspecified altered mental status type R41.82 Active 670841771 Problem Developmental non-verbal 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 Active 239838904 Problem Dementia without behavioral disturbance, unspecified dementia type F03.90 Active 41001600 Problem Essential tremor G25.0 Active 732052936 Problem Moderate intellectual disabilities F71 Active 06102151 Problem Hyperlipidemia, unspecified hyperlipidemia type E78.5 Active 75726094 Problem Obsessive-compulsive disorder, unspecified F42.9 Active 959387138 Problem BMI 40.0-44.9, adult Z68.41 Active 261066256 Problem Urinary incontinence, nocturnal enuresis N39.44 Active 7100706 Problem Constipation, unspecified constipation type K59.00 Active 31817413 ALLERGIES No Information ENCOUNTERS Encounter Location Date Diagnosis [facility] [address] [facility] [id number] [address] Jul, Yeast dermatitis B37.2 [facility] [address] [address] Jun, Coarse tremors G25.2 ; Urinary incontinence, nocturnal enuresis N39.44 and Dementia without behavioral disturbance, unspecified dementia type F03.90 [facility] [address] [id number] [address] Apr, [place] [address] [place] [address]006- 0978 Apr, Dementia without behavioral disturbance, unspecified dementia type F03.90 [place] [address] [id number] [place] [id number] Apr, [place] [id number] [place] [address] 14034- 1217 Apr, [place] [id number] [place] [address] 62887- 7822 Apr, Moderate intellectual disabilities F71 ; Morbid (severe) obesity due to excess calories E66.01 ; Coarse tremors G25.2 ; Urinary incontinence, nocturnal enuresis N39.44 ; Dementia without behavioral disturbance, unspecified dementia type F03.90 and At risk for falls Z91.81 [place] [id number] [place] [address] 09321- 7411 Apr, Constipation, unspecified constipation type K59.00 ; Urinary incontinence, nocturnal enuresis N39.44 ; MR (mental retardation) F79 and Obsessive-compulsive disorder, unspecified F42.9 [place] [id number] [place] [address] 42538- 2107 Apr, [place] [id number] [place] [address] 36621- 4146 Apr, Altered mental status, unspecified altered mental status type R41.82 ; Obsessive-compulsive disorder, unspecified F42.9 ; Developmental non-verbal 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 ; BMI 40.0-44.9, adult Z68.41 and Recurrent UTI N39.0 [place] [id number] [place] [address] 70273- 7765 Mar, Altered mental status, unspecified altered mental status type R41.82 ; Tachycardia R00.0 ; Acute cystitis without hematuria N30.00 and Bacteremia R78.81 [place] [id number] [place] [address] 67959- 4032 Mar, [place] [address] [place] [address] 27491- 0347 Mar, [place] [id number] [place] [address] 78609- 8102 Feb, [place] [id number] [place] [address] 43008- 2998 Feb, Dysuria R30.0 [place] [id number] [place] [address] 69184- 6944 Feb, Dysuria R30.0 ; Acute cystitis without hematuria N30.00 and Tachycardia R00.0 [facility] [place] [id number] [place] [address] 24134 -7256 Feb, Coarse tremors G25.2 and BMI 45.0-49.9, adult Z68.42 [place] [id number] [place] [address] 11014- 0526 Jan, [place] [id number] [place] [address] 05971- 7233 Jan, Major depressive disorder, recurrent episode, in partial remission F33.41 [place] [id number] [place] [address] 95838- 1317 Dec, Hyperglycemia R73.9 ; Hyperlipidemia, unspecified hyperlipidemia type E78.5 ; Body mass index (BMI) of 40.0-44.9 in adult Z68.41 and MR (mental retardation) F79 [place] [id number] [place] [address] 37450- 5991 November, Major depressive disorder, recurrent episode, in partial remission F33.41 ; Mental retardation F79 ; Obsessive compulsive disorder F42 and BMI 50.0-59.9, adult Z68.43 [place] [address] [place] [address] 24680- 4375 Oct, [facility] [id number] [place] [address] 61872 [address]2720 Jul, Acute nasopharyngitis J00 and Vomiting, intractability of vomiting not specified, presence of nausea not specified, unspecified vomiting type R11.10 [place] [address] [address] Jul, BMI 45.0-49.9, adult Z68.42 ; Major depressive disorder, recurrent episode, in partial remission F33.41 ; Mental retardation F79 and Obsessive compulsive disorder F42 [place] [id number] [place] [address] 26632- 0941 Jul, High risk medication use Z79.899 [place] [id number] [place] [address] 28680- 5521 Jun, Morbid (severe) obesity due to excess calories E66.01 ; Body mass index (BMI) of 40.0-44.9 in adult Z68.41 ; Mental retardation F79 ; Elevated blood pressure reading R03.0 ; Screening for diabetes mellitus (DM) Z13.1 and Screening for lipid disorders Z13.220 [place] [id number] [place] [address] 18390- 0806 May, High risk medication use Z79.899 ; Major depressive disorder , recurrent episode, in partial remission F33.41 ; Mental retardation F79 and Obsessive compulsive disorder F42 [address] [address] May, [place] [id number] [place] [address] 30084- 5048 Apr, [facility] [place] [address] [facility] [id number] [id number] Mar, [place] [id number] [place] [address] 63471- 3259 Jan, Major depression, recurrent F33.9 ; Mental retardation F79 and Obsessive compulsive disorder F42 [address] [place] [address] 98406- 6021 November, Major depression, recurrent F33.9 and Obsessive compulsive disorder F42 [facility] [address] [address] 0095 Sep, [facility] [id number] [place] [address] 27003- 4478 Jun, Obsessive compulsive disorder F42 ; Mental retardation F79 and Major depressive disorder, recurrent episode, in partial remission F33.41 [facility] [id number] [place] [address] 44533- 4669 Apr, [facility] [id number] [place] [address] 66765- 6368 Apr, Major depression, recurrent F33.9 ; Obsessive compulsive disorder F42 and Mental retardation F79 [facility] [address] [address] 6426 Jan, [facility] [id number] [place] [address] 95089- 3963 Jan, Major depression, recurrent F33.9 ; Obsessive compulsive disorder F42 and Mental retardation F79 [facility] [address] [place] [address] 04247- 3480 Dec, [facility] [address] [address] 4307 November, [facility] [address] [address] 1307 November, [facility] [id number] [address]- 7630 Oct, [facility] [address] [address] 3817 Oct, Obsessive compulsive disorder F42 ; Major depression, recurrent F33.9 and Mental retardation F79 [facility] [address] [address]- 6164 16 Sep, 2015 [facility] [id number] [place] [address] 38969- 2546 17 Aug, 2015 [facility] [address] [address]- 1670 15 Aug, 2015 [facility] [address] [place] [address] 77203- 9966 Aug, [facility] [address] [place] [address] 96104- 6301 Jul, [facility] [id number] [place] [address] 38803- 9733 Jul, [facility] [address] [place] [address] 14491- 5086 Jul, [facility] [id number] [place] [address] 44324- 9503 Jun, Obsessive compulsive disorder F42 ; Major depression, recurrent F33.9 and Mental retardation F79 [facility] [address] [place] [address] 02349- 0291 Jun, [facility] [address] [place] [address] 70288- 5829 Jun, [facility] [address] [place] [address] 295234- 2041 May, [facility] [address] [address]- 9877 Apr, [facility] [id number] [place] [address] 43901- 5656 30 Mar, 2015 Generalized anxiety disorder 300.02 and Major depressive disorder, recurrent episode, mild 296.31 [facility] [address] [address]- 7553 14 Mar, 2015 [facility] [address] 3899 Feb, [facility] [address] [address]- 9586 Jan, [facility] [address] [facility] [id number] [place] [address]- 2399 10 Dec, 2014 Generalized anxiety disorder 300.02 and Depressive disorder , not elsewhere classified 311 [facility] [address] [id number] [place] [address]- 1619 14 Oct, 2014 [facility] [address] [facility] [id number] [place] [address]- 9800 Oct, [facility] [address] [facility] [id number] [place] [address]- 1563 Sep, [facility] [address] [facility] [id number] [place] [address]- 8650 Sep, [facility] [address] [facility] [id number] [place] [address]- 4310 Jun, [facility] [address] [place] [address]- 3292 Jun, [facility] [id number] [place] [address]- 6980 May, [facility] [id number] [place] [address]- 6764 May, [facility] [id number] [place] [address]- 8439 May, [facility] [id number] [address]- 0252 Apr, [facility] [id number] [place] [address]- 6786 Apr, [facility] [id number] [place] 2636 Feb, [facility] [place] [facility] [address] [facility] [id number] [place] [address]00 Jan, [facility] [place] [facility] [id number] [place] 7296 Jan, [facility] [place] [facility] [address] [id number] [place] [address]- 9772 Dec, [facility] [place] [facility] [address] [id number] [place] [address]- 0591 Dec, [facility] [place] [facility] [address] [id number] [place] [address]- 1070 Oct, [facility] [place] [facility] [address] [id number] [place] [address]- 1394 Oct, [facility] [place] [facility] [address] [id number] [place] [address]- 5642 Oct, [facility] [place] [facility] [address] [id number] [place] [address]- 8595 Oct, [facility] [place] [facility] [address] [id number] [place] [address]- 1089 Sep, [facility] [place] [facility] [address] [id number] [place] [address]- 5909 Sep, [facility] [place] [facility] [address] [id number] [place] [address]- 8427 Sep, [facility] [place] [facility] [address] [id number] [place] [address]- 7057 Sep, [facility] [place] [facility] [address] [id number] [place] [address]- 3115 Aug, [facility] [place] [facility] [address] [id number] [place] [address]- 3580 Aug, [facility] [place] [facility] [address] [id number] [place] [address]- 2340 Aug, [facility] [place] [facility] [address] [id number] [place] [address]- 6905 Aug, [facility] [place] [facility] [address] [id number] [place] [address]- 8766 Jul, [facility] [place] [facility] [address] [id number] [place] [address]- 8670 Jul, [facility] [place] [facility] [address] [id number] [place] [address]- 1511 Jul, [facility] [place] [facility] [address] [id number] [place] [address]- 3818 Jul, [facility] [place] [facility] [address] [id number] [place] [address]- 2909 Jul, [facility] [place] [facility] [address] [id number] [place] [address]- 8307 Jul, [facility] [place] [facility] [address] [id number] [place] [address]- 5344 Apr, [facility] [place] [facility] [address] [id number] [place] [address]- 3208 29 Apr, 2013 [facility] [place] [facility] [address] [id number] [place] [address]- 3908 Apr, [facility] [place] [facility] [address] [id number] [place] [address]- 3973 24 Apr, 2013 [facility] [place] [facility] [address] [id number] [place] [address]- 1342 Apr, [facility] [place] [facility] [address] [id number] [place] [address]- 7002 Apr, [facility] [place] [facility] [address] [id number] [place] [address]- 0322 18 Apr, 2013 [facility] [place] [facility] [address] [id number] [place] [address]- 0624 18 Apr, 2013 [facility] [place] [facility] [address] [id number] [place] [address]- 6781 17 Apr, 2013 [facility] [place] [facility] [address] [id number] [place] [address]- 0021 17 Apr, 2013 [facility] [place] [facility] [address] [id number] [place] [address]- 4084 16 Apr, 2013 [facility] [place] [facility] [address] [id number] [place] [address]- 9125 16 Apr, 2013 [facility] [address] [id number] [place] [address]- 4062 16 Apr, 2013 [facility] [address] [id number] [place] 0835 16 Apr, 2013 [facility] [address] [id number] [place] [address]- 5636 18 Mar, 2013 [facility] [address] [id number] [place] [address]- 7170 17 Mar, 2013 [facility] [address] [id number] [place] [address]- 6278 16 Mar, 2013 [facility] [address] [id number] [place] [address]- 7263 13 Mar, 2013 [facility] [address] [id number] [place] [address]- 1306 Feb, [facility] [address] [id number] [place] [address]- 7402 Feb, [facility] [address] [id number] [place] [address]- 7849 Jan, [facility] [address] [id number] [place] [address]- 6408 Jan, [facility] [address] [id number] [place] [address]- 7373 Jan, [facility] [address] [id number] [place] [address]- 0502 Jan, [facility] [place] [facility] [address] [id number] [place] [address]- 0605 Jan, [facility] [place] [facility] [address] [id number] [place] [address]- 3034 Jan, [facility] [address] [id number] [place] [address]- 6113 05 Jan, 2013 [facility] [place] [facility] [address] [id number] [place] [address]- 2348 Jan, [facility] [place] [facility] [address] [id number] [place] [address]- 7195 Dec, [facility] [place] [facility] [address] [id number] [place] [address]- 2099 Dec, [facility] [place] [facility] [address] [id number] [place] [address]- 4648 Dec, [facility] [place] [facility] [address] [id number] [place] [address]- 1583 Dec, [facility] [place] [facility] [address] [id number] [place] [address]- 7345 Dec, [facility] [place] [facility] [address] [id number] [place] [address]- 0191 Dec, [facility] [place] [facility] [address] [id number] [place] [address]- 5924 Dec, [facility] [place] [facility] [address] [id number] [place] [address]- 1287 Dec, [facility] [place] [facility] [address] [id number] [place] [address]- 7060 Dec, [facility] [place] [facility] [address] [id number] [place] [address]- 7207 November, [facility] [place] [facility] [address] [id number] [place] [address]- 1934 30 Oct, 2012 [facility] [place] [facility] [address] [id number] [place] [address]- 2252 Oct, [facility] [place] [facility] [address] [id number] [place] [address]- 2776 Oct, [facility] [place] [facility] [address] [id number] [place] [address]- 8180 Oct, [facility] [place] [facility] [address] [id number] [place] [address]- 8351 Oct, [facility] [address] [id number] [place] [address]- 0577 Oct, [facility] [address] [id number] [place] [address]- 2685 Aug, [facility] [address] [id number] [place] [address]- 4813 Aug, [facility] [address] [id number] [place] [address]- 6410 Jul, [facility] [address] [id number] [place] [address]- 4247 Jul, [facility] [address] [id number] [place] [address]- 4257 Jul, [facility] [address] [id number] [place] [address]- 1402 Jul, [facility] [address] [id number] [place] [address]- 1691 Jul, [facility] [address] [id number] [place] [address]- 7833 Jul, [facility] [address] [id number] [place] [address]- 1428 Jul, [facility] [address] [id number] [place] [address]- 7228 Jun, [facility] [address] [id number] [place] [address]- 4259 Jun, [facility] [address] [id number] [place] [address]- 6846 Jun, [facility] [address] [id number] [place] [address]- 2328 Jun, [facility] [address] [id number] [place] [address]- 6698 Jun, [facility] [place] [facility] [address] [id number] [place] [address]- 8588 Apr, [facility] [place] [facility] [address] [id number] [place] [address]- 0761 Apr, [facility] [place] [facility] [address] [id number] [place] [address]- 7115 Apr, [facility] [place] [facility] [address] [id number] [place] [address]- 6353 Mar, [facility] [place] [facility] [address] [id number] [place] [address]- 5662 Feb, [facility] [place] [facility] [address] [id number] [place] [address]- 8321 Jan, [facility] [place] [facility] [address] [id number] [place] [address]- 8734 Jan, [facility] [place] [facility] [address] [id number] [place] [address]- 5308 Dec, [facility] [place] [facility] [address] [id number] [place] [address]- 32[address] November, [facility] [place] [facility] [address] [id number] [place] [address] Oct, [facility] [place] [facility] [address] [id number] [place] [address] Sep, [facility] [place] [facility] [address] [id number] [place] [address] Sep, [facility] [place] [facility] [address] [id number] [place] [address] Aug, [facility] [place] [facility] [address] [id number] [place] [address] Aug, [facility] [place] [facility] [address] [id number] [place] [address] Aug, [facility] [place] [facility] [address] [id number] [place] [address] Jul, [facility] [address] [facility] [id number] [place] [address] Jul, [facility] [id number] [place] [address] Jun, [facility] [address] [id number] [address] Jun, [facility] [id number] [address] May, [facility] [address] [id number] [address] Apr, [facility] [id number] [address] Apr, IMMUNIZATIONS No Known Immunizations SOCIAL HISTORY Never Assessed REASON FOR VISIT EMR-[facility] PLAN OF CARE VITAL SIGNS MEDICATIONS No Known Medications RESULTS No Results PROCEDURES No Known procedures INSTRUCTIONS MEDICATIONS ADMINISTERED No Known Medications MEDICAL (GENERAL) HISTORY Type Description Date Medical History GERD Surgical History cholecystectomy 2013 Hospitalization History ED [place]- Chest Pain 08/26/2017 Hospitalization History Hospital, UTI/Septic 02/20/18 Hospitalization History viral infection 03/07/18
--- OUTSIDE RECORDS SUMMARY | 2018-10-20 19:15 | XMS REPORT ---
Author Author Migration, Doctor Organization [facility] Address Unknown Phone Unavailable Care Team Providers Care Hadoop Analyst Name Role Phone Migration, Doctor Unavailable Unavailable PROBLEMS Type Condition ICD9-CM Code UXP45-HI Code Onset Dates Condition Status SNOMED Code Problem Obsessive compulsive disorder F42 Active 067194864 Problem Major depressive disorder, recurrent episode, in partial remission F33.41 Active 74263677 Problem Major depression, recurrent F33.9 Active 73591644 Problem MR (mental retardation) F79 Active 485774216 Problem Morbid (severe) obesity due to excess calories E66.01 Active 96357107320496 Problem Coarse tremors G25.2 Active 35500719 Problem Altered mental status, unspecified altered mental status type R41.82 Active 136387662 Problem Developmental non-verbal 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 Active 348653085 Problem Dementia without behavioral disturbance, unspecified dementia type F03.90 Active 82691727 Problem Essential tremor G25.0 Active 521587416 Problem Moderate intellectual disabilities F71 Active 30789021 Problem Hyperlipidemia, unspecified hyperlipidemia type E78.5 Active 01524701 Problem Obsessive-compulsive disorder, unspecified F42.9 Active 903227481 Problem BMI 40.0-44.9, adult Z68.41 Active 562709623 Problem Urinary incontinence, nocturnal enuresis N39.44 Active 3432438 Problem Constipation, unspecified constipation type K59.00 Active 75706708 ALLERGIES No Information ENCOUNTERS Encounter Location Date Diagnosis [facility] [address] [facility] [id number] [address] Jul, Yeast dermatitis B37.2 [facility] [address] [address] Jun, Coarse tremors G25.2 ; Urinary incontinence, nocturnal enuresis N39.44 and Dementia without behavioral disturbance, unspecified dementia type F03.90 [facility] [address] [id number] [address] Apr, [place] [id number] [place] [address] 62560- 3560 Apr, Dementia without behavioral disturbance, unspecified dementia type F03.90 [place] [id number] [place] [address] Apr, [place] [id number] [place] [address] 90705- 6825 Apr, [place] [id number] [place] [address] 24572- 9126 Apr, Moderate intellectual disabilities F71 ; Morbid (severe) obesity due to excess calories E66.01 ; Coarse tremors G25.2 ; Urinary incontinence, nocturnal enuresis N39.44 ; Dementia without behavioral disturbance, unspecified dementia type F03.90 and At risk for falls Z91.81 [place] [id number] [place] [address] 47155- 4779 Apr, Constipation, unspecified constipation type K59.00 ; Urinary incontinence, nocturnal enuresis N39.44 ; MR (mental retardation) F79 and Obsessive-compulsive disorder, unspecified F42.9 [place] [id number] [place] [address] 26851- 3765 Apr, [place] [address] [id number] [place] [address] 01134- 1120 Apr, Altered mental status, unspecified altered mental status type R41.82 ; Obsessive-compulsive disorder, unspecified F42.9 ; Developmental non-verbal 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 ; BMI 40.0-44.9, adult Z68.41 and Recurrent UTI N39.0 [place] [id number] [place] [address] 29624- 9362 Mar, Altered mental status, unspecified altered mental status type R41.82 ; Tachycardia R00.0 ; Acute cystitis without hematuria N30.00 and Bacteremia R78.81 [place] [id number] [place] [address] 71250- 2359 Mar, [place] [id number] [place] [address] 31002- 8683 Mar, [place] [id number] [place] [address] 21322- 5525 Feb, [place] [id number] [place] [address] 34384- 3615 Feb, Dysuria R30.0 [place] [id number] [place] [address] 65468- 6893 Feb, Dysuria R30.0 ; Acute cystitis without hematuria N30.00 and Tachycardia R00.0 [facility] [place] [id number] [place] [address] 42331 -8785 Feb, Coarse tremors G25.2 and BMI 45.0-49.9, adult Z68.42 [place] [id number] [place] [address] 39523- 8782 Jan, [place] [id number] [place] [address] 90101- 2719 Jan, Major depressive disorder, recurrent episode, in partial remission F33.41 [place] [id number] [place] [address] 42867- 1491 Dec, Hyperglycemia R73.9 ; Hyperlipidemia, unspecified hyperlipidemia type E78.5 ; Body mass index (BMI) of 40.0-44.9 in adult Z68.41 and MR (mental retardation) F79 [place] [id number] [place] [address] 61294- 5893 November, Major depressive disorder, recurrent episode, in partial remission F33.41 ; Mental retardation F79 ; Obsessive compulsive disorder F42 and BMI 50.0-59.9, adult Z68.43 [place] [id number] [place] [address] 97114- 3035 Oct, [facility] [id number] [place] [address] 01177 -5969 Jul, Acute nasopharyngitis J00 and Vomiting, intractability of vomiting not specified, presence of nausea not specified, unspecified vomiting type R11.10 [place] [address], [place] [address] Jul, BMI 45.0-49.9, adult Z68.42 ; Major depressive disorder, recurrent episode, in partial remission F33.41 ; Mental retardation F79 and Obsessive compulsive disorder F42 [place] [id number] [place] [address] 35182- 8683 Jul, High risk medication use Z79.899 [place] [id number] [place] [address] 16306- 6222 Jun, Morbid (severe) obesity due to excess calories E66.01 ; Body mass index (BMI) of 40.0-44.9 in adult Z68.41 ; Mental retardation F79 ; Elevated blood pressure reading R03.0 ; Screening for diabetes mellitus (DM) Z13.1 and Screening for lipid disorders Z13.220 [place] [id number] [place] [address] 32319- 1908 May, High risk medication use Z79.899 ; Major depressive disorder , recurrent episode, in partial remission F33.41 ; Mental retardation F79 and Obsessive compulsive disorder F42 [address] [address] 8[address] May, [place] [id number] [place] [address] 78684- 6339 Apr, [facility] [place] [address] [facility] [id number] [id number] Mar, [place] [id number] [place] [address] 76918- 8233 Jan, Major depression, recurrent F33.9 ; Mental retardation F79 and Obsessive compulsive disorder F42 [address] [place] [address] 08213- 1023 November, Major depression, recurrent F33.9 and Obsessive compulsive disorder F42 [facility] [address] [address] Sep, [facility] [id number] [place] [address] 79964- 5810 Jun, Obsessive compulsive disorder F42 ; Mental retardation F79 and Major depressive disorder, recurrent episode, in partial remission F33.41 [facility] [id number] [place] [address] 98256- 7325 Apr, [facility] [id number] [place] [address] 51214- 7552 Apr, Major depression, recurrent F33.9 ; Obsessive compulsive disorder F42 and Mental retardation F79 [facility] [address], [place] [address]- 8321 Jan, [facility] [id number] [place] [address] 50268- 9684 Jan, Major depression, recurrent F33.9 ; Obsessive compulsive disorder F42 and Mental retardation F79 [facility] [id number] [place] [address] 78044- 7172 Dec, [facility] [address], [place] [address]- 1117 November, [facility] [address], [place] [address]- 9468 November, [facility] [id number] [address]- 8436 Oct, [facility] [address], [place] [address]- 7871 Oct, Obsessive compulsive disorder F42 ; Major depression, recurrent F33.9 and Mental retardation F79 [facility] [address], [place] [address]- 5648 16 Sep, 2015 [facility] [id number] [place] [address] 76121- 2546 17 Aug, 2015 [facility] [address] [address]- 7868 15 Aug, 2015 [facility] [id number] [place] [address] 87362- 6026 Aug, [facility] [id number] [place] [address] 65045- 2386 Jul, [facility] [id number] [place] [address] 07894- 6339 Jul, [facility] [id number] [place] [address] 54824- 4515 Jul, [facility] [id number] [place] [address] 74018- 7202 Jun, Obsessive compulsive disorder F42 ; Major depression, recurrent F33.9 and Mental retardation F79 [facility] [id number] [place] [address] 75689- 8187 Jun, [facility] [id number] [place] [address] 83899- 4857 Jun, [facility] [address] [place] [address] 771134- 8581 May, [facility] [address], [place] [address]- 7489 Apr, [facility] [id number] [place] [address] 06213- 3255 30 Mar, 2015 Generalized anxiety disorder 300.02 and Major depressive disorder, recurrent episode, mild 296.31 [facility] [address] [address]- 1869 14 Mar, 2015 [facility] [address] 8446 Feb, [facility] [address], [place] [address]- 7335 Jan, [facility] [address] [facility] [id number] [place] [address]- 1813 10 Dec, 2014 Generalized anxiety disorder 300.02 and Depressive disorder , not elsewhere classified [address] [facility] [address] [id number] [place] [address]- 1746 14 Oct, 2014 [facility] [address] [facility] [id number] [place] [address]- 9264 Oct, [facility] [address] [facility] [id number] [place] [address]- [address]33 Sep, [facility] [address] [facility] [id number] [place] [address]- 4799 Sep, [facility] [address] [facility] [id number] [place] [address]- 5315 Jun, [facility] [address] [place] [address]- 7273 Jun, [facility] [id number] [place] [address]- 1519 May, [facility] [id number] [address]- 7703 May, [facility] [id number] [place] [address]- 4081 May, [facility] [id number] [address]- 6914 Apr, [facility] [id number] [address]- 3387 Apr, [facility] [id number] 2113 Feb, [facility] [place] [facility] [address] [facility] [id number] [place] 3022 Jan, [facility] [place] [facility] [id number] 0725 Jan, [facility] [place] [facility] [address] [id number] [place] [address]- 1143 Dec, [facility] [place] [facility] [address] [id number] [place] [address]- 3720 Dec, [facility] [place] [facility] [address] [id number] [place] [address]- 6995 Oct, [facility] [place] [facility] [address] [id number] [place] [address]- 3681 Oct, [facility] [place] [facility] [address] [id number] [place] [address]- 1714 Oct, [facility] [place] [facility] [address] [id number] [place] [address]- 5002 Oct, [facility] [place] [facility] [address] [id number] [place] [address]- 7559 Sep, [facility] [place] [facility] [address] [id number] [place] [address]- 6773 Sep, [facility] [place] [facility] [address] [id number] [place] [address]- 9784 Sep, [facility] [place] [facility] [address] [id number] [place] [address]- 8457 Sep, [facility] [place] [facility] [address] [id number] [place] [address]- 4044 Aug, [facility] [place] [facility] [address] [id number] [place] [address]- 7971 Aug, [facility] [place] [facility] [address] [id number] [place] [address]- 9360 Aug, [facility] [place] [facility] [address] [id number] [place] [address]- 2970 Aug, [facility] [place] [facility] [address] [id number] [place] [address]- 0010 Jul, [facility] [place] [facility] [address] [id number] [place] [address]- 7807 Jul, [facility] [place] [facility] [address] [id number] [place] [address]- 4483 Jul, [facility] [place] [facility] [address] [id number] [place] [address]- 2146 Jul, [facility] [place] [facility] [address] [id number] [place] [address]- 8064 Jul, [facility] [place] [facility] [address] [id number] [place] [address]- 6647 Jul, [facility] [place] [facility] [address] [id number] [place] [address]- 1645 Apr, [facility] [place] [facility] [address] [id number] [place] [address]- 1735 29 Apr, 2013 [facility] [place] [facility] [address] [id number] [place] [address]- 1073 Apr, [facility] [place] [facility] [address] [id number] [place] [address]- 5258 24 Apr, 2013 [facility] [place] [facility] [address] [id number] [place] [address]- 5367 Apr, [facility] [place] [facility] [address] [id number] [place] [address]- 4282 Apr, [facility] [place] [facility] [address] [id number], [place] [address]- 9438 18 Apr, 2013 [facility] [place] [facility] [address] [id number], [place] [address]- 1766 18 Apr, 2013 [facility] [place] [facility] [address] [id number] [place] [address]- 9077 17 Apr, 2013 [facility] [place] [facility] [address] [id number], [place] [address]- 1988 17 Apr, 2013 [facility] [place] [facility] [address] [id number], [place] [address]- 9878 16 Apr, 2013 [facility] [place] [facility] [address] [id number] [place] [address]- 7041 16 Apr, 2013 [facility] [address] [id number] [place] [address]- 7566 16 Apr, 2013 [facility] [address] [id number] [place] 2258 16 Apr, 2013 [facility] [address] [id number] [place] [address]- 6241 18 Mar, 2013 [facility] [address] [id number] [place] [address]- 2675 17 Mar, 2013 [facility] [address] [id number] [place] [address]- 7091 16 Mar, 2013 [facility] [address] [id number] [place] [address]- 0635 13 Mar, [address] [facility] [address] [id number] [place] [address]- 0238 Feb, [facility] [address] [id number] [place] [address]- 3517 Feb, [facility] [address] [id number] [place] [address]- 8352 Jan, [facility] [address] [id number] [place] [address]- 9760 Jan, [facility] [address] [id number] [place] [address]- 9493 Jan, [facility] [address] [id number] [place] [address]- 5028 Jan, [facility] [place] [facility] [address] [id number] [place] [address]- 7201 Jan, [facility] [place] [facility] [address] [id number] [place] [address]- 7941 Jan, [facility] [address] [id number] [place] [address]- 5893 05 Jan, 2013 [facility] [place] [facility] [address] [id number] [place] [address]- 4227 Jan, [facility] [place] [facility] [address] [id number] [place] [address]- 4296 Dec, [facility] [place] [facility] [address] [id number] [place] [address]- 7334 Dec, [facility] [place] [facility] [address] [id number] [place] [address]- 4507 Dec, [facility] [place] [facility] [address] [id number] [place] [address]- 1435 Dec, [facility] [place] [facility] [address] [id number] [place] [address]- 4537 Dec, [facility] [place] [facility] [address] [id number] [place] [address]- 2598 Dec, [facility] [place] [facility] [address] [id number] [place] [address]- 6004 Dec, [facility] [place] [facility] [address] [id number] [place] [address]- 7057 Dec, [facility] [place] [facility] [address] [id number] [place] [address]- 8330 Dec, [facility] [place] [facility] [address] [id number] [place] [address]- 8692 November, [facility] [place] [facility] [address] [id number] [place] [address]- 4505 30 Oct, 2012 [facility] [place] [facility] [address] [id number] [place] [address]- 6606 Oct, [facility] [place] [facility] [address] [id number] [place] [address]- 1686 Oct, [facility] [place] [facility] [address] [id number] [place] [address]- 4312 Oct, [facility] [place] [facility] [address] [id number], [place] [address]- 74[address] Oct, [facility] [address] [id number] [place] [address]- 0599 Oct, [facility] [address] [id number] [place] [address]- 3665 Aug, [facility] [address] [id number] [place] [address]- 3105 Aug, [facility] [address] [id number] [place] [address]- 1695 Jul, [facility] [address] [id number] [place] [address]- 3625 Jul, [facility] [address] [id number] [place] [address]- 2952 Jul, [facility] [address] [id number] [place] [address]- 9528 Jul, [facility] [address] [id number] [place] [address]- 0721 Jul, [facility] [address] [id number] [place] [address]- 9[address] Jul, [facility] [address] [id number] [place] [address]- 8068 Jul, [facility] [address] [id number] [place] [address]- 5746 Jun, [facility] [address] [id number] [place] [address]- 4486 Jun, [facility] [address] [id number] [place] [address]- 0727 Jun, [facility] [address] [id number] [place] [address]- 2211 Jun, [facility] [address] [id number] [place] [address]- 8457 Jun, [facility] [place] [facility] [address] [id number] [place] [address]- 3086 Apr, [facility] [place] [facility] [address] [id number] [place] [address]- 2306 Apr, [facility] [place] [facility] [address] [id number] [place] [address]- 6362 Apr, [facility] [place] [facility] [address] [id number] [place] [address]- 1925 Mar, [facility] [place] [facility] [address] [id number] [place] [address]- 4785 Feb, [facility] [place] [facility] [address] [id number] [place] [address] Jan, [facility] [place] [facility] [address] [id number] [place] [address] Jan, [facility] [place] [facility] [address] [id number] [place] [address] Dec, [facility] [place] [facility] [address] [id number] [place] [address] November, [facility] [place] [facility] [address] [id number] [place] [address] Oct, [facility] [place] [facility] [address] [id number] [place] [address] Sep, [facility] [place] [facility] [address] [id number] [place] [address] Sep, [facility] [place] [facility] [address] [id number] [place] [address] Aug, [facility] [place] [facility] [address] [id number] [place] [address] Aug, [facility] [place] [facility] [address] [id number] [place] [address] Aug, [facility] [place] [facility] [address] [id number], [place] [address] Jul, [facility] [address] [facility] [id number], [place] [address] Jul, [facility] [id number] [address] Jun, [facility] [address] [id number] [address] Jun, [facility] [id number], [place] [address] May, [facility] [address] [id number], [place] [address] Apr, [facility] [address] [id number], [place] [address] Apr, IMMUNIZATIONS No Known Immunizations SOCIAL HISTORY Never Assessed REASON FOR VISIT EMR-[facility] PLAN OF CARE VITAL SIGNS MEDICATIONS No Known Medications RESULTS No Results PROCEDURES No Known procedures INSTRUCTIONS MEDICATIONS ADMINISTERED No Known Medications MEDICAL (GENERAL) HISTORY Type Description Date Medical History GERD Surgical History cholecystectomy 2013 Hospitalization History ED [facility]- Chest Pain 08/26/2017 Hospitalization History Hospital, UTI/Septic 02/20/18 Hospitalization History viral infection 03/07/18
[2018-10-20] MEDS ORDERED: HOLD METFORMIN - RECEIVED CONTRAST 20 ML VIAL IV SCH (19:30)
[2018-10-20] MEDS ORDERED: IOHEXOL 350 MG/ML 150 ML (OMNIPAQUE 350) VIAL IV ONE (19:30)
[2018-10-20] MEDS ORDERED: CATHETER FLUSH 10 ML SYR IV PRN (19:30)
--- NOTE | 2018-10-20 20:19 | Diagnostic Imaging Report ---
INDICATION: Tachycardia. Chest pain. EXAMINATION: Axial images were obtained through the chest, abdomen and pelvis. MIP projections were made for the CT angiography. FINDINGS: The lungs are clear. There is no effusion or pneumothorax. There is no mediastinal mass or hemorrhage. There is no aortic aneurysm or dissection. No pulmonary embolus is seen. There is no acute bony abnormality. The gallbladder is absent. The liver and bile ducts are normal. The spleen, pancreas and adrenals are normal. The kidneys, ureters and bladder are normal. The aorta and iliac arteries are normal. There is gaseous distention of the stomach which is filled with air and fluid. There are multiple air and fluid-filled loops of nondilated small bowel and colon. There is no bowel wall edema. There is no free intraperitoneal air or fluid. IMPRESSION: 1. CT angiography of the chest shows no acute abnormality. 2. Images through the abdomen and pelvis show air scattered throughout the large and small bowel which is most likely related to an ileus. There may be gastroparesis present. Dictated by: Dictated on workstation # [id number]
[2018-10-20 20:32] VITALS: BP 145/93
== END 2018-10-20 20:33 | disposition home or self-care (01) ==
LOC: EDUNIT# 17:19 → ER 17:21
DX: R07.9 Chest pain, unspecified (principal); J45.909 Unspecified asthma, uncomplicated; E66.9 Obesity, unspecified; F41.9 Anxiety disorder, unspecified; F32.9 Major depressive disorder, single episode, unspecified; F42.9 Obsessive-compulsive disorder, unspecified; Z87.440 Personal history of urinary (tract) infections; Z98.890 Other specified postprocedural states; Z82.49 Family history of ischemic heart disease and other diseases of the circulatory system
CPT/HCPCS: 71045; 71275; 74019; 74177; 80053; 83690; 83735; 83874; 84484; 85025; 93005; 93041

== ENCOUNTER 2018-12-13 12:06 | Emergency (ER) | payer MEDICARE, MEDICAID ==
[~2018-12-13] VITALS: Ht 165.1 cm; Wt 90.9 kg
[2018-12-13] MEDS ORDERED: NS IV 1000 ML 1,000 ML IV ONE (12:20)
--- OUTSIDE RECORDS SUMMARY | 2018-12-13 12:33 | XMS REPORT ---
Author Author Migration, Doctor Organization [facility] Address Unknown Phone Unavailable Care Team Providers Care Environmental Assistant Name Role Phone Migration, Doctor Unavailable Unavailable PROBLEMS Type Condition ICD9-CM Code OWK69-KC Code Onset Dates Condition Status SNOMED Code Problem Obsessive compulsive disorder F42 Active 199334463 Problem Major depressive disorder, recurrent episode, in partial remission F33.41 Active 86840389 Problem Major depression, recurrent F33.9 Active 83045757 Problem MR (mental retardation) F79 Active 448349964 Problem Morbid (severe) obesity due to excess calories E66.01 Active 27254610875360 Problem Coarse tremors G25.2 Active 01323203 Problem Altered mental status, unspecified altered mental status type R41.82 Active 203381254 Problem Developmental non-verbal 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 Active 517968569 Problem Dementia without behavioral disturbance, unspecified dementia type F03.90 Active 26871861 Problem Essential tremor G25.0 Active 199820718 Problem Moderate intellectual disabilities F71 Active 60112355 Problem Hyperlipidemia, unspecified hyperlipidemia type E78.5 Active 18058684 Problem Obsessive-compulsive disorder, unspecified F42.9 Active 762237084 Problem BMI 40.0-44.9, adult Z68.41 Active 302355157 Problem Urinary incontinence, nocturnal enuresis N39.44 Active 9914651 Problem Constipation, unspecified constipation type K59.00 Active 17965327 ALLERGIES No Information ENCOUNTERS Encounter Location Date Diagnosis [facility] [place] [id number], [place] [address] November, [facility] [place] [id number] [place] [address] Oct, [facility] [address], [place] [address] Jul, Yeast dermatitis B37.2 [facility] [place] [address], [place] [address] Jun, Coarse tremors G25.2 ; Urinary incontinence, nocturnal enuresis N39.44 and Dementia without behavioral disturbance, unspecified dementia type F03.90 [place] [id number] [place] [address] Apr, [place] [id number] [place] [address] Apr, Dementia without behavioral disturbance, unspecified dementia type F03.90 [place] [id number] [place] [address] Apr, [place] [id number] [place] [address] Apr, [place] [id number] [place] [address] Apr, Moderate intellectual disabilities F71 ; Morbid (severe) obesity due to excess calories E66.01 ; Coarse tremors G25.2 ; Urinary incontinence, nocturnal enuresis N39.44 ; Dementia without behavioral disturbance, unspecified dementia type F03.90 and At risk for falls Z91.81 [address] [id number] [place] [address] Apr, Constipation, unspecified constipation type K59.00 ; Urinary incontinence, nocturnal enuresis N39.44 ; MR (mental retardation) F79 and Obsessive- compulsive disorder, unspecified F42.9 [place] [id number] [place] [address] Apr, [place] [id number] [place] [address] Apr, Altered mental status, unspecified altered mental status type R41.82 ; Obsessive-compulsive disorder, unspecified F42.9 ; Developmental non-verbal 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 ; BMI 40.0-44.9, adult Z68.41 and Recurrent UTI N39.0 [place] [id number] [place] [address] Mar, Altered mental status, unspecified altered mental status type R41.82 ; Tachycardia R00.0 ; Acute cystitis without hematuria N30.00 and Bacteremia R78.81 [place] [id number] [place] [address] Mar, [place] [id number] [place] [address] Mar, [place] [address] [address] Feb, [place] [address] [address] Feb, Dysuria R30.0 [place] [id number] [place] [address] Feb, Dysuria R30.0 ; Acute cystitis without hematuria N30.00 and Tachycardia R00.0 [facility] [id number] [place] [address] Feb, Coarse tremors G25.2 and BMI 45.0-49.9, adult Z68.42 [place] [address] [address] Jan, [place] [id number] [place] [address] Jan, Major depressive disorder, recurrent episode, in partial remission F33.41 [place] [id number] [place] [address] Dec, Hyperglycemia R73.9 ; Hyperlipidemia, unspecified hyperlipidemia type E78.5 ; Body mass index (BMI) of 40.0-44.9 in adult Z68.41 and MR (mental retardation) F79 [facility], [place] [id number] [place] [address] November, Major depressive disorder, recurrent episode, in partial remission F33.41 ; Mental retardation F79 ; Obsessive compulsive disorder F42 and BMI 50.0-59.9, adult Z68.43 [facility] [place] [address], [place] [address] Oct, [facility] [id number] [place] [address] Jul, Acute nasopharyngitis J00 and Vomiting, intractability of vomiting not specified, presence of nausea not specified, unspecified vomiting type R11.10 [facility] [place] [id number] [place] [address] 09 Jul, 2017 BMI 45.0-49.9, adult Z68.42 ; Major depressive disorder, recurrent episode, in partial remission F33.41 ; Mental retardation F79 and Obsessive compulsive disorder F42 [place] [id number] [place] [address] Jul, High risk medication use Z79.899 [facility] [place] [id number] [place] [address] Jun, Morbid (severe) obesity due to excess calories E66.01 ; Body mass index (BMI) of 40.0-44.9 in adult Z68.41 ; Mental retardation F79 ; Elevated blood pressure reading R03.0 ; Screening for diabetes mellitus (DM) Z13.1 and Screening for lipid disorders Z13.220 [place] [id number] [place] [address] 13 May, 2017 High risk medication use Z79.899 ; Major depressive disorder, recurrent episode, in partial remission F33.41 ; Mental retardation F79 and Obsessive compulsive disorder F42 [facility] [place] [address], [place] [address] May, [id number] [place] [address] Apr, [facility] [id number] [id number] Mar, [facility], [place] [address] [place] [id number] [place] [address] Jan, Major depression, recurrent F33.9 ; Mental retardation F79 and Obsessive compulsive disorder F42 [facility] [place] [id number] [place] [address] November, Major depression, recurrent F33.9 and Obsessive compulsive disorder F42 [facility] [place] [address], [place] [address] Sep, [facility] [place] [id number] [place] [address] Jun, Obsessive compulsive disorder F42 ; Mental retardation F79 and Major depressive disorder, recurrent episode, in partial remission F33.41 [facility] [place] [id number] [place] [address] Apr, [facility] [place] [id number] [place] [address] Apr, Major depression, recurrent F33.9 ; Obsessive compulsive disorder F42 and Mental retardation F79 [facility] [place] [address], [place] [address] Jan, [facility] [place] [id number] [place] [address] Jan, Major depression, recurrent F33.9 ; Obsessive compulsive disorder F42 and Mental retardation F79 [facility] [place] [address], [place] [address] Dec, [facility] [place] [id number], [place] [address] November, [facility] [place] [id number] [place] [address] November, [facility] [place] [address], [place] [address] Oct, [facility] [place] [address], [place] [address] Oct, Obsessive compulsive disorder F42 ; Major depression, recurrent F33.9 and Mental retardation F79 [facility] [place] [address], [place] [address] Sep, [facility] [place] [address], [place] [address] 17 Aug, 2015 [facility] [place] [address], [place] [address] Aug, [facility] [place] [id number] [place] [address] Aug, [facility] [place] [id number] [place] [address] Jul, [facility] [place] [id number] [place] [address] Jul, [facility] [place] [id number] [place] [address] Jul, [facility] [place] [address], [place] [address] Jun, Obsessive compulsive disorder F42 ; Major depression, recurrent F33.9 and Mental retardation F79 [facility] [place] [address], [place] [address] Jun, [facility] [place] [address], [place] [address] Jun, [facility] [place] [address], [place] [address] May, [facility] [place] [address], [place] [address] Apr, [facility] [place] [id number], [place] [address] 30 Mar, 2015 Generalized anxiety disorder 300.02 and Major depressive disorder, recurrent episode, mild 296.31 [facility] [place] [address], [place] [address] 14 Mar, 2015 [facility] [address] [id number] [address] Feb, [facility] [address] [facility] [id number] [place] [address] Jan, [facility] [address] [place] [address] 10 Dec, 2014 Generalized anxiety disorder 300.02 and Depressive disorder, not elsewhere classified [address] [facility] [address] [id number] [place] [address] 14 Oct, 2014 [facility] [address] [facility] [id number] [place] [address], [place] [address] Oct, [facility] [address] [facility] [id number] [place] [address] Sep, [facility] [id number] [place] [address] Sep, [facility] [address] [place] [address] Jun, [facility] [id number] [place] [address] Jun, [facility] [address] [place] [address] May, [facility] [id number], [place] [address] May, [facility] [address] [facility] [id number], [place] [address] May, [facility] [address] [facility] [id number] [place] [address] Apr, [facility] [address] [facility] [id number] [place] [address] Apr, [facility] [id number] [place] [address] Feb, [facility] [place] [facility] [address] [id number] [place] [address] Jan, [facility] [place] [facility] [address] [id number] [place] [address] Jan, [facility] [place] [facility] [address] [id number] [place] [address] Dec, [facility] [place] [facility] [address] [id number] [place] [address] Dec, [facility] [place] [facility] [address] [id number] [place] [address] Oct, [facility] [place] [facility] [address] [id number] [place] [address] Oct, [facility] [place] [facility] [address] [id number] [place] [address] Oct, [facility] [place] [facility] [address] [id number] [place] [address] Oct, [facility] [place] [facility] [address] [id number] [place] [address] Sep, [facility] [place] [facility] [address] [id number] [place] [address] Sep, [facility] [place] [facility] [address] [id number] [place] [address] Sep, [facility] [place] [facility] [address] [id number] [place] [address] Sep, [facility] [place] [facility] [address] [id number] [place] [address] Aug, [facility] [place] [facility] [address] [id number] [place] [address] Aug, [facility] [place] [facility] [address] [id number] [place] [address] Aug, [facility] [place] [facility] [address] [id number] [place] [address] Aug, [facility] [place] [facility] [address] [id number] [place] [address] Jul, [facility] [place] [facility] [address] [id number] [place] [address] Jul, [facility] [place] [facility] [address] [id number] [place] [address] Jul, [facility] [place] [facility] [address] [id number] [place] [address] Jul, [facility] [place] [facility] [address] [id number] [place] [address] Jul, [facility] [place] [facility] [address] [id number] [place] [address] Jul, [facility] [place] [facility] [address] [id number] [place] [address] Apr, [facility] [place] [facility] [address] [id number], [place] [address] Apr, [facility] [place] [facility] [address] [id number], [place] [address] Apr, [facility] [place] [facility] [address] [id number], [place] [address] Apr, [facility] [place] [facility] [address] [id number], [place] [address] Apr, [facility] [place] [facility] [address] [id number], [place] [address] Apr, [facility] [place] [facility] [address] [id number] [place] [address] Apr, [facility] [place] [facility] [address] [id number], [place] [address] Apr, [facility] [place] [facility] [address] [id number], [place] [address] Apr, [facility] [place] [facility] [address] [id number] [place] [address] 17 Apr, 2012 [facility] [address] [id number] [place] [address] 16 Apr, 2012 [facility] [address] [id number] [place] [address] 16 Apr, 2012 [facility] [address] [id number] [place] [address] 16 Apr, 2012 [facility] [address] [id number] [place] [address] 16 Apr, 2013 [facility] [address] [id number] [place] [address] 18 Mar, 2013 [facility] [address] [id number] [place] [address] 17 Mar, 2013 [facility] [address] [id number] [place] [address] 16 Mar, 2013 [facility] [address] [id number] [place] [address] 13 Mar, 2013 [facility] [address] [id number] [place] [address] Feb, [facility] [address] [id number] [place] [address] Feb, [facility] [address] [id number] [place] [address] Jan, [facility] [address] [id number] [place] [address] Jan, [facility] [place] [facility] [address] [id number] [place] [address] Jan, [facility] [place] [facility] [address] [id number] [place] [address] Jan, [facility] [place] [facility] [address] [id number] [place] [address] Jan, [facility] [place] [facility] [address] [id number] [place] [address] 17 Jan, 2013 [facility] [place] [facility] [address] [id number] [place] [address] Jan, [facility] [place] [facility] [address] [id number] [place] [address] Jan, [facility] [place] [facility] [address] [id number] [place] [address] Dec, [facility] [place] [facility] [address] [id number] [place] [address] Dec, [facility] [place] [facility] [address] [id number] [place] [address] Dec, [facility] [place] [facility] [address] [id number] [place] [address] Dec, [facility] [place] [facility] [address] [id number] [place] [address] Dec, [facility] [place] [facility] [address] [id number] [place] [address] Dec, [facility] [place] [facility] [address] [id number] [place] [address] Dec, [facility] [place] [facility] [address] [id number] [place] [address] Dec, [facility] [place] [facility] [address] [id number] [place] [address] Dec, [facility] [place] [facility] [address] [id number] [place] [address] November, [facility] [place] [facility] [address] [id number] [place] [address] Oct, [facility] [place] [facility] [address] [id number] [place] [address] Oct, [facility] [place] [facility] [address] [id number], [place] [address] Oct, [facility] [address] [id number] [place] [address] Oct, [facility] [address] [id number] [place] [address] Oct, [facility] [address] [id number] [place] [address] Oct, [facility] [address] [id number] [place] [address] Aug, [facility] [address] [id number] [place] [address] Aug, [facility] [address] [id number] [place] [address] Jul, [facility] [address] [id number] [place] [address] Jul, [facility] [address] [id number] [place] [address] Jul, [facility] [address] [id number] [place] [address] Jul, [facility] [address] [id number] [place] [address] Jul, [facility] [address] [id number] [place] [address] Jul, [facility] [address] [id number] [place] [address] Jul, [facility] [address] [id number] [place] [address] Jun, [facility] [address] [id number] [place] [address] Jun, [facility] [address] [id number] [place] [address] Jun, [facility] [place] [facility] [address] [id number] [place] [address] Jun, [facility] [place] [facility] [address] [id number] [place] [address] Jun, [facility] [place] [facility] [address] [id number] [place] [address] Apr, [facility] [place] [facility] [address] [id number] [place] [address] Apr, [facility] [place] [facility] [address] [id number] [place] [address] Apr, [facility] [place] [facility] [address] [id number] [place] [address] Mar, [facility] [place] [facility] [address] [id number] [place] [address] Feb, [facility] [place] [facility] [address] [id number] [place] [address] Jan, [facility] [place] [facility] [address] [id number] [place] [address] Jan, [facility] [place] [facility] [address] [id number] [place] [address] Dec, [facility] [place] [facility] [address] [id number] [place] [address] November, [facility] [place] [facility] [address] [id number] [place] [address] Oct, [facility] [place] [facility] [address] [id number] [place] [address] Sep, [facility] [place] [facility] [address] [id number] [place] [address] Sep, [facility] [place] [facility] [address] [id number] [place] [address] Aug, [facility] [place] [facility] [address] [id number] [place] [address] Aug, [facility] [place] [address] [id number] [address] Aug, [facility] [place] [id number] [place] [address] Jul, [facility] [place] [id number] [address] Jul, [facility] [place] [id number] [place] [address] Jun, [facility] [place] [id number] [place] [address] Jun, [facility] [place] [id number] [address] May, [facility] [place] [id number] [place] [address] Apr, [facility] [place] [address] [id number] [address] Apr, IMMUNIZATIONS No Known Immunizations SOCIAL HISTORY Never Assessed REASON FOR VISIT [place] [place] VITAL SIGNS MEDICATIONS Unknown Medications RESULTS No Results PROCEDURES No Known procedures INSTRUCTIONS MEDICATIONS ADMINISTERED No Known Medications MEDICAL (GENERAL) HISTORY Type Description Date Medical History GERD Surgical History cholecystectomy 2013 Hospitalization History ED [place]- Chest Pain 08/26/2017 Hospitalization History Hospital, UTI/Septic 02/20/18 Hospitalization History viral infection 03/07/18
--- OUTSIDE RECORDS SUMMARY | 2018-12-13 12:34 | XMS REPORT ---
Author Author Migration, Doctor Organization [facility] Address Unknown Phone Unavailable Care Team Providers Care [employer] Name Role Phone Migration, Doctor Unavailable Unavailable PROBLEMS Type Condition ICD9-CM Code KPN76-AN Code Onset Dates Condition Status SNOMED Code Problem Obsessive compulsive disorder F42 Active 287745086 Problem Major depressive disorder, recurrent episode, in partial remission F33.41 Active 25252412 Problem Major depression, recurrent F33.9 Active 31096289 Problem MR (mental retardation) F79 Active 695250516 Problem Morbid (severe) obesity due to excess calories E66.01 Active 71961331120801 Problem Coarse tremors G25.2 Active 23894060 Problem Altered mental status, unspecified altered mental status type R41.82 Active 990166288 Problem Developmental non-verbal 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 Active 893928987 Problem Dementia without behavioral disturbance, unspecified dementia type F03.90 Active 80330195 Problem Essential tremor G25.0 Active 755432482 Problem Moderate intellectual disabilities F71 Active 28082498 Problem Hyperlipidemia, unspecified hyperlipidemia type E78.5 Active 08583133 Problem Obsessive-compulsive disorder, unspecified F42.9 Active 563927427 Problem BMI 40.0-44.9, adult Z68.41 Active 996816438 Problem Urinary incontinence, nocturnal enuresis N39.44 Active 8366740 Problem Constipation, unspecified constipation type K59.00 Active 95989731 ALLERGIES No Information ENCOUNTERS Encounter Location Date Diagnosis [facility] [id number] [address] November, [facility] [id number] [place] [address] Oct, [facility] [address], [place] [address] Jul, Yeast dermatitis B37.2 [facility] [address], [place] [address] Jun, Coarse tremors G25.2 ; Urinary incontinence, nocturnal enuresis N39.44 and Dementia without behavioral disturbance, unspecified dementia type F03.90 [id number] [place] [address] Apr, [address] [id number] [place] [address] Apr, Dementia without behavioral disturbance, unspecified dementia type F03.90 [address] [place] [id number] [place] [address] Apr, [place] [id number] [place] [address] Apr, [address] [id number] [place] [address] Apr, Moderate intellectual disabilities F71 ; Morbid (severe) obesity due to excess calories E66.01 ; Coarse tremors G25.2 ; Urinary incontinence, nocturnal enuresis N39.44 ; Dementia without behavioral disturbance, unspecified dementia type F03.90 and At risk for falls Z91.81 [address] [place] [id number] [place] [address] Apr, Constipation, unspecified constipation type K59.00 ; Urinary incontinence, nocturnal enuresis N39.44 ; MR (mental retardation) F79 and Obsessive- compulsive disorder, unspecified F42.9 [address] [id number] [place] [address] Apr, [place] [id number] [place] [address] Apr, Altered mental status, unspecified altered mental status type R41.82 ; Obsessive-compulsive disorder, unspecified F42.9 ; Developmental non-verbal 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 ; BMI 40.0-44.9, adult Z68.41 and Recurrent UTI N39.0 [place] [id number] [place] [address] Mar, Altered mental status, unspecified altered mental status type R41.82 ; Tachycardia R00.0 ; Acute cystitis without hematuria N30.00 and Bacteremia R78.81 [address] [id number] [place] [address] Mar, [place] [id number] [place] [address] Mar, [address] [place] [address] Feb, [address] [address] Feb, Dysuria R30.0 [place] [id number] [place] [address] Feb, Dysuria R30.0 ; Acute cystitis without hematuria N30.00 and Tachycardia R00.0 [facility] [id number] [place] [address] Feb, Coarse tremors G25.2 and BMI 45.0-49.9, adult Z68.42 [address] [address] Jan, [place] [id number] [place] [address] Jan, Major depressive disorder, recurrent episode, in partial remission F33.41 [address] [id number] [place] [address] Dec, Hyperglycemia R73.9 ; Hyperlipidemia, unspecified hyperlipidemia type E78.5 ; Body mass index (BMI) of 40.0-44.9 in adult Z68.41 and MR (mental retardation) F79 [facility] [id number] [place] [address] November, Major depressive disorder, recurrent episode, in partial remission F33.41 ; Mental retardation F79 ; Obsessive compulsive disorder F42 and BMI 50.0-59.9, adult Z68.43 [facility] [address], [place] [address] Oct, [facility] [id number] [place] [address] Jul, Acute nasopharyngitis J00 and Vomiting, intractability of vomiting not specified, presence of nausea not specified, unspecified vomiting type R11.10 [facility] [id number] [place] [address] 09 Jul, 2017 BMI 45.0-49.9, adult Z68.42 ; Major depressive disorder, recurrent episode, in partial remission F33.41 ; Mental retardation F79 and Obsessive compulsive disorder F42 [address] [place] [address] Jul, High risk medication use Z79.899 [facility] [id number] [place] [address] Jun, Morbid (severe) obesity due to excess calories E66.01 ; Body mass index (BMI) of 40.0-44.9 in adult Z68.41 ; Mental retardation F79 ; Elevated blood pressure reading R03.0 ; Screening for diabetes mellitus (DM) Z13.1 and Screening for lipid disorders Z13.220 [address] [place] [address] 13 May, 2017 High risk medication use Z79.899 ; Major depressive disorder, recurrent episode, in partial remission F33.41 ; Mental retardation F79 and Obsessive compulsive disorder F42 [facility] [address] [address] May, [id number] [place] [address] Apr, [facility] [id number] [place] [id number] Mar, [facility] [address] [place] [id number] [place] [address] Jan, Major depression, recurrent F33.9 ; Mental retardation F79 and Obsessive compulsive disorder F42 [facility] [address] [place] [address] November, Major depression, recurrent F33.9 and Obsessive compulsive disorder F42 [facility] [address] [address] Sep, [facility] [id number] [place] [address] Jun, Obsessive compulsive disorder F42 ; Mental retardation F79 and Major depressive disorder, recurrent episode, in partial remission F33.41 [facility] [id number] [place] [address] Apr, [facility] [id number] [place] [address] Apr, Major depression, recurrent F33.9 ; Obsessive compulsive disorder F42 and Mental retardation F79 [facility] [address] [address] Jan, [facility] [id number] [place] [address] Jan, Major depression, recurrent F33.9 ; Obsessive compulsive disorder F42 and Mental retardation F79 [facility] [address] [address] Dec, [facility] [id number] [address] November, [facility] [id number] [place] [address] November, [facility] [address] [address] Oct, [facility] [address], [place] [address] Oct, Obsessive compulsive disorder F42 ; Major depression, recurrent F33.9 and Mental retardation F79 [facility] [address], [place] [address] Sep, [facility] [address] [address] 17 Aug, 2015 [facility] [address], [place] [address] Aug, [facility] [id number] [place] [address] Aug, [facility] [id number] [place] [address] Jul, [facility] [id number] [place] [address] Jul, [facility] [address] [place] [address] Jul, [facility] [address] [address] Jun, Obsessive compulsive disorder F42 ; Major depression, recurrent F33.9 and Mental retardation F79 [facility] [address] [address] Jun, [facility] [address] [address] Jun, [facility] [address], [place] [address] May, [facility] [address], [place] [address] Apr, [facility] [id number] [address] 30 Mar, 2015 Generalized anxiety disorder 300.02 and Major depressive disorder, recurrent episode, mild 296.31 [facility] [address] [address] 14 Mar, 2015 [facility] [address] [id number] [address] Feb, [facility] [address] [facility] [id number] [place] [address] Jan, [facility] [address] [place] [place] [address] 10 Dec, 2014 Generalized anxiety disorder 300.02 and Depressive disorder, not elsewhere classified 311 [facility] [address] [id number] [place] [address] 14 Oct, 2014 [facility] [address] [facility] [id number] [place] [address], [place] [address] Oct, [facility] [address] [facility] [id number] [place] [address] Sep, [facility] [id number] [place] [address] Sep, [facility] [address] [place] [address] Jun, [facility] [id number] [place] [address] Jun, [facility] [address] [place] [address] May, [facility] [id number] [address] May, [facility] [address] [facility] [id number], [place] [address] May, [facility] [address] [facility] [id number] [place] [address] Apr, [facility] [address] [facility] [id number] [place] [address] Apr, [facility] [id number] [place] [address] Feb, [facility] [place] [facility] [address] [id number] [place] [address] Jan, [facility] [place] [facility] [address] [id number] [place] [address] Jan, [facility] [place] [facility] [address] [id number] [place] [address] Dec, [facility] [place] [facility] [address] [id number] [place] [address] Dec, [facility] [place] [facility] [address] [id number] [place] [address] Oct, [facility] [place] [facility] [address] [id number] [place] [address] Oct, [facility] [place] [facility] [address] [id number] [place] [address] Oct, [facility] [place] [facility] [address] [id number] [place] [address] Oct, [facility] [place] [facility] [address] [id number] [place] [address] Sep, [facility] [place] [facility] [address] [id number] [place] [address] Sep, [facility] [place] [facility] [address] [id number] [place] [address] Sep, [facility] [place] [facility] [address] [id number] [place] [address] Sep, [facility] [place] [facility] [address] [id number] [place] [address] Aug, [facility] [place] [facility] [address] [id number] [place] [address] Aug, [facility] [place] [facility] [address] [id number] [place] [address] Aug, [facility] [place] [facility] [address] [id number] [place] [address] Aug, [facility] [place] [facility] [address] [id number] [place] [address] Jul, [facility] [place] [facility] [address] [id number] [place] [address] Jul, [facility] [place] [facility] [address] [id number] [place] [address] Jul, [facility] [place] [facility] [address] [id number] [place] [address] Jul, [facility] [place] [facility] [address] [id number] [place] [address] Jul, [facility] [place] [facility] [address] [id number] [place] [address] Jul, [facility] [place] [facility] [address] [id number] [place] [address] Apr, [facility] [place] [facility] [address] [id number], [place] [address] Apr, [facility] [place] [facility] [address] [id number], [place] [address] Apr, [facility] [place] [facility] [address] [id number], [place] [address] Apr, [facility] [place] [facility] [address] [id number], [place] [address] Apr, [facility] [place] [facility] [address] [id number], [place] [address] Apr, [facility] [place] [facility] [address] [id number] [place] [address] Apr, [facility] [place] [facility] [address] [id number], [place] [address] Apr, [facility] [place] [facility] [address] [id number], [place] [address] Apr, [facility] [place] [facility] [address] [id number] [place] [address] 17 Apr, 2012 [facility] [address] [id number] [place] [address] 16 Apr, 2012 [facility] [address] [id number] [place] [address] 16 Apr, 2012 [facility] [address] [id number] [place] [address] 16 Apr, 2012 [facility] [address] [id number] [place] [address] 16 Apr, 2013 [facility] [address] [id number] [place] [address] 18 Mar, 2013 [facility] [address] [id number] [place] [address] 17 Mar, 2013 [facility] [address] [id number] [place] [address] 16 Mar, 2013 [facility] [address] [id number] [place] [address] 13 Mar, 2013 [facility] [address] [id number] [place] [address] Feb, [facility] [address] [id number] [place] [address] Feb, [facility] [address] [id number] [place] [address] Jan, [facility] [address] [id number] [place] [address] Jan, [facility] [place] [facility] [address] [id number] [place] [address] Jan, [facility] [place] [facility] [address] [id number] [place] [address] Jan, [facility] [place] [facility] [address] [id number] [place] [address] Jan, [facility] [place] [facility] [address] [id number] [place] [address] 17 Jan, 2013 [facility] [place] [facility] [address] [id number] [place] [address] Jan, [facility] [place] [facility] [address] [id number] [place] [address] Jan, [facility] [place] [facility] [address] [id number] [place] [address] Dec, [facility] [place] [facility] [address] [id number] [place] [address] Dec, [facility] [place] [facility] [address] [id number] [place] [address] Dec, [facility] [place] [facility] [address] [id number] [place] [address] Dec, [facility] [place] [facility] [address] [id number] [place] [address] Dec, [facility] [place] [facility] [address] [id number] [place] [address] Dec, [facility] [place] [facility] [address] [id number] [place] [address] Dec, [facility] [place] [facility] [address] [id number] [place] [address] Dec, [facility] [place] [facility] [address] [id number] [place] [address] Dec, [facility] [place] [facility] [address] [id number] [place] [address] November, [facility] [place] [facility] [address] [id number] [place] [address] Oct, [facility] [place] [facility] [address] [id number] [place] [address] Oct, [facility] [place] [facility] [address] [id number], [place] [address] Oct, [facility] [address] [id number] [place] [address] Oct, [facility] [address] [id number] [place] [address] Oct, [facility] [address] [id number] [place] [address] Oct, [facility] [address] [id number] [place] [address] Aug, [facility] [address] [id number] [place] [address] Aug, [facility] [address] [id number] [place] [address] Jul, [facility] [address] [id number] [place] [address] Jul, [facility] [address] [id number] [place] [address] Jul, [facility] [address] [id number] [place] [address] Jul, [facility] [address] [id number] [place] [address] Jul, [facility] [address] [id number] [place] [address] Jul, [facility] [address] [id number] [place] [address] Jul, [facility] [address] [id number] [place] [address] Jun, [facility] [address] [id number] [place] [address] Jun, [facility] [address] [id number] [place] [address] Jun, [facility] [place] [facility] [address] [id number] [place] [address] Jun, [facility] [place] [facility] [address] [id number] [place] [address] Jun, [facility] [place] [facility] [address] [id number] [place] [address] Apr, [facility] [place] [facility] [address] [id number] [place] [address] Apr, [facility] [place] [facility] [address] [id number] [place] [address] Apr, [facility] [place] [facility] [address] [id number] [place] [address] Mar, [facility] [place] [facility] [address] [id number] [place] [address] Feb, [facility] [place] [facility] [address] [id number] [place] [address] Jan, [facility] [place] [facility] [address] [id number] [place] [address] Jan, [facility] [place] [facility] [address] [id number] [place] [address] Dec, [facility] [place] [facility] [address] [id number] [place] [address] November, [facility] [place] [facility] [address] [id number] [place] [address] Oct, [facility] [place] [facility] [address] [id number] [place] [address] Sep, [facility] [place] [facility] [address] [id number] [place] [address] Sep, [facility] [place] [facility] [address] [id number] [place] [address] Aug, [facility] [place] [facility] [address] [id number] [place] [address] Aug, [facility] [address] [id number] [address] Aug, [facility] [id number] [address] Jul, [facility] [id number] [address] Jul, [facility] [id number] [address] Jun, [facility] [id number] [address] Jun, [facility] [id number] [address] May, [facility] [id number] [address] Apr, [facility] [address] [id number] [address] Apr, IMMUNIZATIONS No Known Immunizations SOCIAL HISTORY Never Assessed REASON FOR VISIT EMR-[facility] [place] PLAN OF CARE VITAL SIGNS MEDICATIONS Unknown Medications RESULTS No Results PROCEDURES No Known procedures INSTRUCTIONS MEDICATIONS ADMINISTERED No Known Medications MEDICAL (GENERAL) HISTORY Type Description Date Medical History GERD Surgical History cholecystectomy 2013 Hospitalization History ED [place]- Chest Pain 08/26/2017 Hospitalization History Hospital, UTI/Septic 02/20/18 Hospitalization History viral infection 03/07/18
--- OUTSIDE RECORDS SUMMARY | 2018-12-13 12:34 | XMS REPORT ---
Author Author Migration, Doctor Organization [facility] Address Unknown Phone Unavailable Care Team Providers Care Switchbox Assembler Name Role Phone Migration, Doctor Unavailable Unavailable PROBLEMS Type Condition ICD9-CM Code ULL94-OU Code Onset Dates Condition Status SNOMED Code Problem Obsessive compulsive disorder F42 Active 841010524 Problem Major depressive disorder, recurrent episode, in partial remission F33.41 Active 30743948 Problem Major depression, recurrent F33.9 Active 48869966 Problem MR (mental retardation) F79 Active 272153649 Problem Morbid (severe) obesity due to excess calories E66.01 Active 51488766175151 Problem Coarse tremors G25.2 Active 78171366 Problem Altered mental status, unspecified altered mental status type R41.82 Active 434508683 Problem Developmental non-verbal 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 Active 276587296 Problem Dementia without behavioral disturbance, unspecified dementia type F03.90 Active 08886872 Problem Essential tremor G25.0 Active 193744889 Problem Moderate intellectual disabilities F71 Active 63116263 Problem Hyperlipidemia, unspecified hyperlipidemia type E78.5 Active 99478854 Problem Obsessive-compulsive disorder, unspecified F42.9 Active 335905902 Problem BMI 40.0-44.9, adult Z68.41 Active 050496346 Problem Urinary incontinence, nocturnal enuresis N39.44 Active 9575578 Problem Constipation, unspecified constipation type K59.00 Active 34558124 ALLERGIES No Information ENCOUNTERS Encounter Location Date Diagnosis [facility] [place] [facility] [id number] [address] November, [facility] [place] [facility] [id number] [place] [address] Oct, [facility] [address], [place] [address] Jul, Yeast dermatitis B37.2 [facility] [place] [facility] [address], [place] [address] Jun, Coarse tremors G25.2 ; Urinary incontinence, nocturnal enuresis N39.44 and Dementia without behavioral disturbance, unspecified dementia type F03.90 [address] [id number] [place] [address] Apr, [address] [id number] [place] [address] Apr, Dementia without behavioral disturbance, unspecified dementia type F03.90 [address] [id number] [place] [address] Apr, [place] [id number] [place] [address] Apr, [place] [id number] [place] [address] Apr, Moderate intellectual disabilities F71 ; Morbid (severe) obesity due to excess calories E66.01 ; Coarse tremors G25.2 ; Urinary incontinence, nocturnal enuresis N39.44 ; Dementia without behavioral disturbance, unspecified dementia type F03.90 and At risk for falls Z91.81 [place] [id number] [place] [address] Apr, Constipation, unspecified constipation type K59.00 ; Urinary incontinence, nocturnal enuresis N39.44 ; MR (mental retardation) F79 and Obsessive- compulsive disorder, unspecified F42.9 [address] [place] [id number] [place] [address] Apr, [place] [id number] [place] [address] Apr, Altered mental status, unspecified altered mental status type R41.82 ; Obsessive-compulsive disorder, unspecified F42.9 ; Developmental non-verbal 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 ; BMI 40.0-44.9, adult Z68.41 and Recurrent UTI N39.0 [place] [id number] [place] [address] Mar, Altered mental status, unspecified altered mental status type R41.82 ; Tachycardia R00.0 ; Acute cystitis without hematuria N30.00 and Bacteremia R78.81 [place] [id number] [place] [address] Mar, [place] [id number] [place] [address] Mar, [address] [address] Feb, [address] [address] [address] Feb, Dysuria R30.0 [place] [id number] [place] [address] Feb, Dysuria R30.0 ; Acute cystitis without hematuria N30.00 and Tachycardia R00.0 [facility] [id number] [place] [address] Feb, Coarse tremors G25.2 and BMI 45.0-49.9, adult Z68.42 [address] [place] [address] Jan, [place] [id number] [place] [address] Jan, Major depressive disorder, recurrent episode, in partial remission F33.41 [place] [id number] [place] [address] Dec, Hyperglycemia R73.9 ; Hyperlipidemia, unspecified hyperlipidemia type E78.5 ; Body mass index (BMI) of 40.0-44.9 in adult Z68.41 and MR (mental retardation) F79 [facility] [place] [facility] [id number] [place] [address] November, Major depressive disorder, recurrent episode, in partial remission F33.41 ; Mental retardation F79 ; Obsessive compulsive disorder F42 and BMI 50.0-59.9, adult Z68.43 [facility] [place] [facility] [address], [place] [address] Oct, [facility] [address] [place] [address] Jul, Acute nasopharyngitis J00 and Vomiting, intractability of vomiting not specified, presence of nausea not specified, unspecified vomiting type R11.10 [facility] [place] [facility] [id number] [place] [address] 09 Jul, 2017 BMI 45.0-49.9, adult Z68.42 ; Major depressive disorder, recurrent episode, in partial remission F33.41 ; Mental retardation F79 and Obsessive compulsive disorder F42 [address] [address] [place] [address] Jul, High risk medication use Z79.899 [facility] [place] [facility] [id number] [place] [address] Jun, Morbid (severe) obesity due to excess calories E66.01 ; Body mass index (BMI) of 40.0-44.9 in adult Z68.41 ; Mental retardation F79 ; Elevated blood pressure reading R03.0 ; Screening for diabetes mellitus (DM) Z13.1 and Screening for lipid disorders Z13.220 [address] [place] [address] 13 May, 2017 High risk medication use Z79.899 ; Major depressive disorder, recurrent episode, in partial remission F33.41 ; Mental retardation F79 and Obsessive compulsive disorder F42 [facility] [place] [facility] [address], [place] [address] May, [id number] [place] [address] Apr, [facility] [id number] [id number] Mar, [facility] [place] [facility] [address] [place] [id number] [place] [address] Jan, Major depression, recurrent F33.9 ; Mental retardation F79 and Obsessive compulsive disorder F42 [facility] [place] [facility] [address] [place] [address] November, Major depression, recurrent F33.9 and Obsessive compulsive disorder F42 [facility] [place] [facility] [address], [place] [address] Sep, [facility] [place] [facility] [id number] [place] [address] Jun, Obsessive compulsive disorder F42 ; Mental retardation F79 and Major depressive disorder, recurrent episode, in partial remission F33.41 [facility] [place] [facility] [id number] [place] [address] Apr, [facility] [place] [facility] [id number] [place] [address] Apr, Major depression, recurrent F33.9 ; Obsessive compulsive disorder F42 and Mental retardation F79 [facility] [place] [facility] [address], [place] [address] Jan, [facility] [place] [facility] [id number] [place] [address] Jan, Major depression, recurrent F33.9 ; Obsessive compulsive disorder F42 and Mental retardation F79 [facility] [place] [facility] [address], [place] [address] Dec, [facility] [place] [facility] [id number], [place] [address] November, [facility] [place] [facility] [id number] [place] [address] November, [facility] [place] [facility] [address], [place] [address] Oct, [facility] [place] [facility] [address], [place] [address] Oct, Obsessive compulsive disorder F42 ; Major depression, recurrent F33.9 and Mental retardation F79 [facility] [place] [facility] [address], [place] [address] Sep, [facility] [place] [facility] [address], [place] [address] 17 Aug, 2015 [facility] [place] [facility] [address], [place] [address] Aug, [facility] [place] [facility] [id number] [place] [address] Aug, [facility] [place] [facility] [address] [place] [address] Jul, [facility] [place] [facility] [id number] [place] [address] Jul, [facility] [place] [facility] [address] [place] [address] Jul, [facility] [place] [facility] [address], [place] [address] Jun, Obsessive compulsive disorder F42 ; Major depression, recurrent F33.9 and Mental retardation F79 [facility] [place] [facility] [address], [place] [address] Jun, [facility] [place] [facility] [address], [place] [address] Jun, [facility] [facility] [address], [place] [address] May, [facility] [place] [facility] [address], [place] [address] Apr, [facility] [place] [facility] [id number], [place] [address] 30 Mar, 2015 Generalized anxiety disorder 300.02 and Major depressive disorder, recurrent episode, mild 296.31 [facility] [place] [facility] [address], [place] [address] 14 Mar, 2015 [facility] [address] [id number] [address] Feb, [facility] [address] [facility] [id number] [place] [address] Jan, [facility] [address] [place] [address] 10 Dec, 2014 Generalized anxiety disorder 300.02 and Depressive disorder, not elsewhere classified [address] [facility] [address] [id number] [place] [address] 14 Oct, 2014 [facility] [address] [facility] [id number] [place] [address], [place] [address] Oct, [facility] [address] [facility] [id number] [place] [address] Sep, [facility] [id number] [place] [address] Sep, [facility] [address] [place] [address] Jun, [facility] [id number] [place] [address] Jun, [facility] [address] [place] [address] May, [facility] [id number], [place] [address] May, [facility] [address] [facility] [id number], [place] [address] May, [facility] [address] [facility] [id number] [place] [address] Apr, [facility] [address] [facility] [id number] [place] [address] Apr, [facility] [id number] [address] Feb, [facility] [place] [facility] [address] [id number] [place] [address] Jan, [facility] [place] [facility] [address] [id number] [place] [address] Jan, [facility] [place] [facility] [address] [id number] [place] [address] Dec, [facility] [place] [facility] [address] [id number] [place] [address] Dec, [facility] [place] [facility] [address] [id number] [place] [address] Oct, [facility] [place] [facility] [address] [id number] [place] [address] Oct, [facility] [place] [facility] [address] [id number] [place] [address] Oct, [facility] [place] [facility] [address] [id number] [place] [address] Oct, [facility] [place] [facility] [address] [id number] [place] [address] Sep, [facility] [place] [facility] [address] [id number] [place] [address] Sep, [facility] [place] [facility] [address] [id number] [place] [address] Sep, [facility] [place] [facility] [address] [id number] [place] [address] Sep, [facility] [place] [facility] [address] [id number] [place] [address] Aug, [facility] [place] [facility] [address] [id number] [place] [address] Aug, [facility] [place] [facility] [address] [id number] [place] [address] Aug, [facility] [place] [facility] [address] [id number] [place] [address] Aug, [facility] [place] [facility] [address] [id number] [place] [address] Jul, [facility] [place] [facility] [address] [id number] [place] [address] Jul, [facility] [place] [facility] [address] [id number] [place] [address] Jul, [facility] [place] [facility] [address] [id number] [place] [address] Jul, [facility] [place] [facility] [address] [id number] [place] [address] Jul, [facility] [place] [facility] [address] [id number] [place] [address] Jul, [facility] [place] [facility] [address] [id number] [place] [address] Apr, [facility] [place] [facility] [address] [id number], [place] [address] Apr, [facility] [place] [facility] [address] [id number], [place] [address] Apr, [facility] [place] [facility] [address] [id number], [place] [address] Apr, [facility] [place] [facility] [address] [id number], [place] [address] Apr, [facility] [place] [facility] [address] [id number], [place] [address] Apr, [facility] [place] [facility] [address] [id number] [place] [address] Apr, [facility] [place] [facility] [address] [id number], [place] [address] Apr, [facility] [place] [facility] [address] [id number], [place] [address] Apr, [facility] [place] [facility] [address] [id number] [place] [address] 17 Apr, 2012 [facility] [address] [id number] [place] [address] 16 Apr, 2012 [facility] [address] [id number] [place] [address] 16 Apr, 2012 [facility] [address] [id number] [place] [address] 16 Apr, 2012 [facility] [address] [id number] [place] [address] 16 Apr, 2013 [facility] [address] [id number] [place] [address] 18 Mar, 2013 [facility] [address] [id number] [place] [address] 17 Mar, 2013 [facility] [address] [id number] [place] [address] 16 Mar, 2013 [facility] [address] [id number] [place] [address] 13 Mar, 2013 [facility] [address] [id number] [place] [address] Feb, [facility] [address] [id number] [place] [address] Feb, [facility] [address] [id number] [place] [address] Jan, [facility] [address] [id number] [place] [address] Jan, [facility] [place] [facility] [address] [id number] [place] [address] Jan, [facility] [place] [facility] [address] [id number] [place] [address] Jan, [facility] [place] [facility] [address] [id number] [place] [address] Jan, [facility] [place] [facility] [address] [id number] [place] [address] 17 Jan, 2013 [facility] [place] [facility] [address] [id number] [place] [address] Jan, [facility] [place] [facility] [address] [id number] [place] [address] Jan, [facility] [place] [facility] [address] [id number] [place] [address] Dec, [facility] [place] [facility] [address] [id number] [place] [address] Dec, [facility] [place] [facility] [address] [id number] [place] [address] Dec, [facility] [place] [facility] [address] [id number] [place] [address] Dec, [facility] [place] [facility] [address] [id number] [place] [address] Dec, [facility] [place] [facility] [address] [id number] [place] [address] Dec, [facility] [place] [facility] [address] [id number] [place] [address] Dec, [facility] [place] [facility] [address] [id number] [place] [address] Dec, [facility] [place] [facility] [address] [id number] [place] [address] Dec, [facility] [place] [facility] [address] [id number] [place] [address] November, [facility] [place] [facility] [address] [id number] [place] [address] Oct, [facility] [place] [facility] [address] [id number] [place] [address] Oct, [facility] [place] [facility] [address] [id number], [place] [address] Oct, [facility] [address] [id number] [place] [address] Oct, [facility] [address] [id number] [place] [address] Oct, [facility] [address] [id number] [place] [address] Oct, [facility] [address] [id number] [place] [address] Aug, [facility] [address] [id number] [place] [address] Aug, [facility] [address] [id number] [place] [address] Jul, [facility] [address] [id number] [place] [address] Jul, [facility] [address] [id number] [place] [address] Jul, [facility] [address] [id number] [place] [address] Jul, [facility] [address] [id number] [place] [address] Jul, [facility] [address] [id number] [place] [address] Jul, [facility] [address] [id number] [place] [address] Jul, [facility] [address] [id number] [place] [address] Jun, [facility] [address] [id number] [place] [address] Jun, [facility] [address] [id number] [place] [address] Jun, [facility] [place] [facility] [address] [id number] [place] [address] Jun, [facility] [place] [facility] [address] [id number] [place] [address] Jun, [facility] [place] [facility] [address] [id number] [place] [address] Apr, [facility] [place] [facility] [address] [id number] [place] [address] Apr, [facility] [place] [facility] [address] [id number] [place] [address] Apr, [facility] [place] [facility] [address] [id number] [place] [address] Mar, [facility] [place] [facility] [address] [id number] [place] [address] Feb, [facility] [place] [facility] [address] [id number] [place] [address] Jan, [facility] [place] [facility] [address] [id number] [place] [address] Jan, [facility] [place] [facility] [address] [id number] [place] [address] Dec, [facility] [place] [facility] [address] [id number] [place] [address] November, [facility] [place] [facility] [address] [id number] [place] [address] Oct, [facility] [place] [facility] [address] [id number] [place] [address] Sep, [facility] [place] [facility] [address] [id number] [place] [address] Sep, [facility] [place] [facility] [address] [id number] [place] [address] Aug, [facility] [place] [facility] [address] [id number] [place] [address] Aug, [facility] [place] [facility] [id number] [address] Aug, [facility] [place] [facility] [id number] [place] [address] Jul, [facility] [place] [facility] [id number] [place] [address] Jul, [facility] [place] [facility] [id number] [place] [address] Jun, [facility] [place] [facility] [id number] [place] [address] Jun, [facility] [place] [facility] [id number] [place] [address] May, [facility] [place] [facility] [id number] [place] [address] Apr, [facility] [place] [facility] [id number] [address] Apr, IMMUNIZATIONS No Known Immunizations SOCIAL HISTORY Never Assessed REASON FOR VISIT EMR-[facility] PLAN OF CARE VITAL SIGNS MEDICATIONS Unknown Medications RESULTS No Results PROCEDURES No Known procedures INSTRUCTIONS MEDICATIONS ADMINISTERED No Known Medications MEDICAL (GENERAL) HISTORY Type Description Date Medical History GERD Surgical History cholecystectomy 2013 Hospitalization History ED [facility] [place]- Chest Pain 08/26/2017 Hospitalization History Hospital, UTI/Septic 02/20/18 Hospitalization History viral infection 03/07/18
--- OUTSIDE RECORDS SUMMARY | 2018-12-13 12:35 | XMS REPORT ---
Author Author Migration, Doctor Organization [facility] Address Unknown Phone Unavailable Care Team Providers Care Entry Level Civil Engineer Name Role Phone Migration, Doctor Unavailable Unavailable PROBLEMS Type Condition ICD9-CM Code [id number] Code Onset Dates Condition Status SNOMED Code Problem Obsessive compulsive disorder F42 Active 571054260 Problem Major depressive disorder, recurrent episode, in partial remission F33.41 Active 83271056 Problem Major depression, recurrent F33.9 Active 60974503 Problem MR (mental retardation) F79 Active 027325815 Problem Morbid (severe) obesity due to excess calories E66.01 Active 83007178513239 Problem Coarse tremors G25.2 Active 91822635 Problem Altered mental status, unspecified altered mental status type R41.82 Active 481463358 Problem Developmental non-verbal 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 Active 740768614 Problem Dementia without behavioral disturbance, unspecified dementia type F03.90 Active 75847436 Problem Essential tremor G25.0 Active 033875723 Problem Moderate intellectual disabilities F71 Active 57186243 Problem Hyperlipidemia, unspecified hyperlipidemia type E78.5 Active 50457113 Problem Obsessive-compulsive disorder, unspecified F42.9 Active 850026252 Problem BMI 40.0-44.9, adult Z68.41 Active 865051473 Problem Urinary incontinence, nocturnal enuresis N39.44 Active 7142883 Problem Constipation, unspecified constipation type K59.00 Active 50236024 ALLERGIES No Information ENCOUNTERS Encounter Location Date Diagnosis [facility] [id number] [address] November, [facility] [id number] [place] [address] Oct, [facility] [address] [address] Jul, Yeast dermatitis B37.2 [facility] [address] [address] Jun, Coarse tremors G25.2 ; Urinary incontinence, nocturnal enuresis N39.44 and Dementia without behavioral disturbance, unspecified dementia type F03.90 [address] [facility] [id number] [place] [address] Apr, [facility] [facility] [id number] [place] [address] Apr, Dementia without behavioral disturbance, unspecified dementia type F03.90 [facility] [id number] [place] [address] Apr, [facility] [facility] [id number] [place] [address] Apr, [facility] [facility] [id number] [place] [address] Apr, Moderate intellectual disabilities F71 ; Morbid (severe) obesity due to excess calories E66.01 ; Coarse tremors G25.2 ; Urinary incontinence, nocturnal enuresis N39.44 ; Dementia without behavioral disturbance, unspecified dementia type F03.90 and At risk for falls Z91.81 [place] [id number] [place] [address] Apr, Constipation, unspecified constipation type K59.00 ; Urinary incontinence, nocturnal enuresis N39.44 ; MR (mental retardation) F79 and Obsessive- compulsive disorder, unspecified F42.9 [place] [id number] [place] [address] Apr, [place] [id number] [place] [address] Apr, Altered mental status, unspecified altered mental status type R41.82 ; Obsessive-compulsive disorder, unspecified F42.9 ; Developmental non-verbal 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 ; BMI 40.0-44.9, adult Z68.41 and Recurrent UTI N39.0 [place] [id number] [place] [address] Mar, Altered mental status, unspecified altered mental status type R41.82 ; Tachycardia R00.0 ; Acute cystitis without hematuria N30.00 and Bacteremia R78.81 [address] [id number] [place] [address] Mar, [place] [id number] [place] [address] Mar, [address] [address] [address] [address] Feb, [place] [address] [address] Feb, Dysuria R30.0 [place] [id number] [place] [address] Feb, Dysuria R30.0 ; Acute cystitis without hematuria N30.00 and Tachycardia R00.0 [facility] [id number] [place] [address] Feb, Coarse tremors G25.2 and BMI 45.0-49.9, adult Z68.42 [address] [address] [address] Jan, [place] [id number] [place] [address] Jan, Major depressive disorder, recurrent episode, in partial remission F33.41 [facility] [id number] [place] [address] Dec, Hyperglycemia R73.9 ; Hyperlipidemia, unspecified hyperlipidemia type E78.5 ; Body mass index (BMI) of 40.0-44.9 in adult Z68.41 and MR (mental retardation) F79 [facility] [id number] [place] [address] November, Major depressive disorder, recurrent episode, in partial remission F33.41 ; Mental retardation F79 ; Obsessive compulsive disorder F42 and BMI 50.0-59.9, adult Z68.43 [facility] [address] [address] Oct, [facility] [id number] [place] [address] Jul, Acute nasopharyngitis J00 and Vomiting, intractability of vomiting not specified, presence of nausea not specified, unspecified vomiting type R11.10 [facility] [id number] [place] [address] 09 Jul, 2017 BMI 45.0-49.9, adult Z68.42 ; Major depressive disorder, recurrent episode, in partial remission F33.41 ; Mental retardation F79 and Obsessive compulsive disorder F42 [address] [address] [place] [address] Jul, High risk medication use Z79.899 [facility] [id number] [place] [address] Jun, Morbid (severe) obesity due to excess calories E66.01 ; Body mass index (BMI) of 40.0-44.9 in adult Z68.41 ; Mental retardation F79 ; Elevated blood pressure reading R03.0 ; Screening for diabetes mellitus (DM) Z13.1 and Screening for lipid disorders Z13.220 [address] [place] [place] [address] 13 May, 2017 High risk medication use Z79.899 ; Major depressive disorder, recurrent episode, in partial remission F33.41 ; Mental retardation F79 and Obsessive compulsive disorder F42 [facility] [address] [address] May, [id number] [place] [address] Apr, [facility] [id number] [id number] Mar, [facility] [address] [place] [id number] [place] [address] Jan, Major depression, recurrent F33.9 ; Mental retardation F79 and Obsessive compulsive disorder F42 [facility] [address] [place] [address] November, Major depression, recurrent F33.9 and Obsessive compulsive disorder F42 [facility] [address] [address] Sep, [facility] [id number] [place] [address] Jun, Obsessive compulsive disorder F42 ; Mental retardation F79 and Major depressive disorder, recurrent episode, in partial remission F33.41 [facility] [id number] [place] [address] Apr, [facility] [id number] [place] [address] Apr, Major depression, recurrent F33.9 ; Obsessive compulsive disorder F42 and Mental retardation F79 [facility] [address] [address] Jan, [facility] [id number] [place] [address] Jan, Major depression, recurrent F33.9 ; Obsessive compulsive disorder F42 and Mental retardation F79 [facility] [address] [address] Dec, [facility] [id number] [address] November, [facility] [id number] [place] [address] November, [facility] [address] [address] Oct, [facility] [address] [address] Oct, Obsessive compulsive disorder F42 ; Major depression, recurrent F33.9 and Mental retardation F79 [facility] [address] [address] Sep, [facility] [address] [address] 17 Aug, 2015 [facility] [address] [address] Aug, [facility] [id number] [place] [address] Aug, [facility] [address] [place] [address] Jul, [facility] [id number] [place] [address] Jul, [facility] [address] [place] [address] Jul, [facility] [address] [address] Jun, Obsessive compulsive disorder F42 ; Major depression, recurrent F33.9 and Mental retardation F79 [facility] [address] [address] Jun, [facility] [address] [address] Jun, [facility] [address] [address] May, [facility] [address] [address] Apr, [facility] [address] [address] 30 Mar, 2015 Generalized anxiety disorder 300.02 and Major depressive disorder, recurrent episode, mild 296.31 [facility] [address] [address] 14 Mar, 2015 [facility] [address] [id number] [address] Feb, [facility] [address] [facility] [id number] [place] [address] Jan, [facility] [address] [place] [address] 10 Dec, 2014 Generalized anxiety disorder 300.02 and Depressive disorder, not elsewhere classified 311 [facility] [address] [id number] [place] [address] 14 Oct, 2014 [facility] [address] [facility] [id number] [place] [address], [place] [address] Oct, [facility] [address] [facility] [id number] [place] [address] Sep, [facility] [id number] [place] [address] Sep, [facility] [address] [place] [address] Jun, [facility] [id number] [place] [address] Jun, [facility] [address] [place] [address] May, [facility] [id number] [address] May, [facility] [address] [facility] [id number] [address] May, [facility] [address] [facility] [id number] [place] [address] Apr, [facility] [address] [facility] [id number] [place] [address] Apr, [facility] [id number] [place] [address] Feb, [facility] [place] [facility] [address] [id number] [place] [address] Jan, [facility] [place] [facility] [address] [id number] [place] [address] Jan, [facility] [place] [facility] [address] [id number] [place] [address] Dec, [facility] [place] [facility] [address] [id number] [place] [address] Dec, [facility] [place] [facility] [address] [id number] [place] [address] Oct, [facility] [place] [facility] [address] [id number] [place] [address] Oct, [facility] [place] [facility] [address] [id number] [place] [address] Oct, [facility] [place] [facility] [address] [id number] [place] [address] Oct, [facility] [place] [facility] [address] [id number] [place] [address] Sep, [facility] [place] [facility] [address] [id number] [place] [address] Sep, [facility] [place] [facility] [address] [id number] [place] [address] Sep, [facility] [place] [facility] [address] [id number] [place] [address] Sep, [facility] [place] [facility] [address] [id number] [place] [address] Aug, [facility] [place] [facility] [address] [id number] [place] [address] Aug, [facility] [place] [facility] [address] [id number] [place] [address] Aug, [facility] [place] [facility] [address] [id number] [place] [address] Aug, [facility] [place] [facility] [address] [id number] [place] [address] Jul, [facility] [place] [facility] [address] [id number] [place] [address] Jul, [facility] [place] [facility] [address] [id number] [place] [address] Jul, [facility] [place] [facility] [address] [id number] [place] [address] Jul, [facility] [place] [facility] [address] [id number] [place] [address] Jul, [facility] [place] [facility] [address] [id number] [place] [address] Jul, [facility] [place] [facility] [address] [id number] [place] [address] Apr, [facility] [place] [facility] [address] [id number] [place] [address] Apr, [facility] [place] [facility] [address] [id number] [place] [address] Apr, [facility] [place] [facility] [address] [id number] [place] [address] Apr, [facility] [place] [facility] [address] [id number] [place] [address] Apr, [facility] [place] [facility] [address] [id number] [place] [address] Apr, [facility] [place] [facility] [address] [id number] [place] [address] Apr, [facility] [place] [facility] [address] [id number] [place] [address] Apr, [facility] [place] [facility] [address] [id number] [place] [address] Apr, [facility] [place] [facility] [address] [id number] [place] [address] 17 Apr, 2012 [facility] [address] [id number] [place] [address] 16 Apr, 2012 [facility] [address] [id number] [place] [address] 16 Apr, 2012 [facility] [address] [id number] [place] [address] 16 Apr, 2012 [facility] [address] [id number] [place] [address] 16 Apr, 2013 [facility] [address] [id number] [place] [address] 18 Mar, 2013 [facility] [address] [id number] [place] [address] 17 Mar, 2013 [facility] [address] [id number] [place] [address] 16 Mar, 2013 [facility] [address] [id number] [place] [address] 13 Mar, 2013 [facility] [address] [id number] [place] [address] Feb, [facility] [address] [id number] [place] [address] Feb, [facility] [address] [id number] [place] [address] Jan, [facility] [address] [id number] [place] [address] Jan, [facility] [place] [facility] [address] [id number] [place] [address] Jan, [facility] [place] [facility] [address] [id number] [place] [address] Jan, [facility] [place] [facility] [address] [id number] [place] [address] Jan, [facility] [place] [facility] [address] [id number] [place] [address] 17 Jan, 2013 [facility] [place] [facility] [address] [id number] [place] [address] Jan, [facility] [place] [facility] [address] [id number] [place] [address] Jan, [facility] [place] [facility] [address] [id number] [place] [address] Dec, [facility] [place] [facility] [address] [id number] [place] [address] Dec, [facility] [place] [facility] [address] [id number] [place] [address] Dec, [facility] [place] [facility] [address] [id number] [place] [address] Dec, [facility] [place] [facility] [address] [id number] [place] [address] Dec, [facility] [place] [facility] [address] [id number] [place] [address] Dec, [facility] [place] [facility] [address] [id number] [place] [address] Dec, [facility] [place] [facility] [address] [id number] [place] [address] Dec, [facility] [place] [facility] [address] [id number] [place] [address] Dec, [facility] [place] [facility] [address] [id number] [place] [address] November, [facility] [place] [facility] [address] [id number] [place] [address] Oct, [facility] [place] [facility] [address] [id number] [place] [address] Oct, [facility] [place] [facility] [address] [id number] [place] [address] Oct, [facility] [address] [id number] [place] [address] Oct, [facility] [address] [id number] [place] [address] Oct, [facility] [address] [id number] [place] [address] Oct, [facility] [address] [id number] [place] [address] Aug, [facility] [address] [id number] [place] [address] Aug, [facility] [address] [id number] [place] [address] Jul, [facility] [address] [id number] [place] [address] Jul, [facility] [address] [id number] [place] [address] Jul, [facility] [address] [id number] [place] [address] Jul, [facility] [address] [id number] [place] [address] Jul, [facility] [address] [id number] [place] [address] Jul, [facility] [address] [id number] [place] [address] Jul, [facility] [address] [id number] [place] [address] Jun, [facility] [address] [id number] [place] [address] Jun, [facility] [address] [id number] [place] [address] Jun, [facility] [place] [facility] [address] [id number] [place] [address] Jun, [facility] [place] [facility] [address] [id number] [place] [address] Jun, [facility] [place] [facility] [address] [id number] [place] [address] Apr, [facility] [place] [facility] [address] [id number] [place] [address] Apr, [facility] [place] [facility] [address] [id number] [place] [address] Apr, [facility] [place] [facility] [address] [id number] [place] [address] Mar, [facility] [place] [facility] [address] [id number] [place] [address] Feb, [facility] [place] [facility] [address] [id number] [place] [address] Jan, [facility] [place] [facility] [address] [id number] [place] [address] Jan, [facility] [place] [facility] [address] [id number] [place] [address] Dec, [facility] [place] [facility] [address] [id number] [place] [address] November, [facility] [place] [facility] [address] [id number] [place] [address] Oct, [facility] [place] [facility] [address] [id number] [place] [address] Sep, [facility] [place] [facility] [address] [id number] [place] [address] Sep, [facility] [place] [facility] [address] [id number] [place] [address] Aug, [facility] [place] [facility] [address] [id number] [place] [address] Aug, [facility] [id number] [address] Aug, [facility] [id number] [address] Jul, [facility] [id number] [address] Jul, [facility] [id number] [address] Jun, [facility] [id number] [address] Jun, [facility] [id number] [address] May, [facility] [id number] [address] Apr, [facility] [id number] [address] Apr, IMMUNIZATIONS No Known Immunizations SOCIAL HISTORY Never Assessed REASON FOR VISIT EMR-[facility] PLAN OF CARE VITAL SIGNS MEDICATIONS Unknown Medications RESULTS No Results PROCEDURES No Known procedures INSTRUCTIONS MEDICATIONS ADMINISTERED No Known Medications MEDICAL (GENERAL) HISTORY Type Description Date Medical History GERD Surgical History cholecystectomy 2013 Hospitalization History ED [facility]- Chest Pain 08/26/2017 Hospitalization History Hospital, UTI/Septic 02/20/18 Hospitalization History viral infection 03/07/18
--- OUTSIDE RECORDS SUMMARY | 2018-12-13 12:35 | XMS REPORT ---
Author Author Migration, Doctor Organization [facility] Address Unknown Phone Unavailable Care Team Providers Care Fleet Sales Manager Name Role Phone Migration, Doctor Unavailable Unavailable PROBLEMS Type Condition ICD9-CM Code LRQ02-UK Code Onset Dates Condition Status SNOMED Code Problem Obsessive compulsive disorder F42 Active 051937337 Problem Major depressive disorder, recurrent episode, in partial remission F33.41 Active 80371051 Problem Major depression, recurrent F33.9 Active 19378299 Problem MR (mental retardation) F79 Active 029293462 Problem Morbid (severe) obesity due to excess calories E66.01 Active [id number] Problem Coarse tremors G25.2 Active 73540246 Problem Altered mental status, unspecified altered mental status type R41.82 Active 691744404 Problem Developmental non-verbal 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 Active 716808957 Problem Dementia without behavioral disturbance, unspecified dementia type F03.90 Active 12683588 Problem Essential tremor G25.0 Active 062895997 Problem Moderate intellectual disabilities F71 Active 17434534 Problem Hyperlipidemia, unspecified hyperlipidemia type E78.5 Active 63509368 Problem Obsessive-compulsive disorder, unspecified F42.9 Active 586044065 Problem BMI 40.0-44.9, adult Z68.41 Active 216965731 Problem Urinary incontinence, nocturnal enuresis N39.44 Active 6728432 Problem Constipation, unspecified constipation type K59.00 Active 70671869 ALLERGIES No Information ENCOUNTERS Encounter Location Date Diagnosis [facility] [id number], [place] [address] November, [facility] [id number] [place] [address] Oct, [facility] [address], [place] [address] Jul, Yeast dermatitis B37.2 [facility] [address], [place] [address] Jun, Coarse tremors G25.2 ; Urinary incontinence, nocturnal enuresis N39.44 and Dementia without behavioral disturbance, unspecified dementia type F03.90 [facility] [id number] [place] [address] Apr, [facility] [id number] [place] [address] Apr, Dementia without behavioral disturbance, unspecified dementia type F03.90 [facility] [id number] [place] [address] Apr, [facility] [id number] [place] [address] Apr, [facility] [id number] [place] [address] Apr, Moderate intellectual disabilities F71 ; Morbid (severe) obesity due to excess calories E66.01 ; Coarse tremors G25.2 ; Urinary incontinence, nocturnal enuresis N39.44 ; Dementia without behavioral disturbance, unspecified dementia type F03.90 and At risk for falls Z91.81 [facility] [facility] [id number] [place] [address] Apr, Constipation, unspecified constipation type K59.00 ; Urinary incontinence, nocturnal enuresis N39.44 ; MR (mental retardation) F79 and Obsessive- compulsive disorder, unspecified F42.9 [facility] [id number] [place] [address] Apr, [facility] [id number] [place] [address] Apr, Altered mental status, unspecified altered mental status type R41.82 ; Obsessive-compulsive disorder, unspecified F42.9 ; Developmental non-verbal 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 ; BMI 40.0-44.9, adult Z68.41 and Recurrent UTI N39.0 [facility] [id number] [place] [address] Mar, Altered mental status, unspecified altered mental status type R41.82 ; Tachycardia R00.0 ; Acute cystitis without hematuria N30.00 and Bacteremia R78.81 [facility] [facility] [id number] [place] [address] Mar, [facility] [id number] [place] [address] Mar, [address] [address] [address] Feb, [place] [facility] [address] [address] Feb, Dysuria R30.0 [facility] [id number] [place] [address] Feb, Dysuria R30.0 ; Acute cystitis without hematuria N30.00 and Tachycardia R00.0 [facility] [id number] [place] [address] Feb, Coarse tremors G25.2 and BMI 45.0-49.9, adult Z68.42 [address] [address] [address] Jan, [facility] [id number] [place] [address] Jan, Major depressive disorder, recurrent episode, in partial remission F33.41 [facility] [id number] [place] [address] Dec, Hyperglycemia R73.9 ; Hyperlipidemia, unspecified hyperlipidemia type E78.5 ; Body mass index (BMI) of 40.0-44.9 in adult Z68.41 and MR (mental retardation) F79 [facility] [id number] [place] [address] November, Major depressive disorder, recurrent episode, in partial remission F33.41 ; Mental retardation F79 ; Obsessive compulsive disorder F42 and BMI 50.0-59.9, adult Z68.43 [facility] [address] [address] Oct, [facility] [id number] [place] [address] Jul, Acute nasopharyngitis J00 and Vomiting, intractability of vomiting not specified, presence of nausea not specified, unspecified vomiting type R11.10 [facility] [id number] [place] [address] 09 Jul, 2017 BMI 45.0-49.9, adult Z68.42 ; Major depressive disorder, recurrent episode, in partial remission F33.41 ; Mental retardation F79 and Obsessive compulsive disorder F42 [address] [place] [id number] [place] [address] Jul, High risk medication use Z79.899 [facility] [id number] [place] [address] Jun, Morbid (severe) obesity due to excess calories E66.01 ; Body mass index (BMI) of 40.0-44.9 in adult Z68.41 ; Mental retardation F79 ; Elevated blood pressure reading R03.0 ; Screening for diabetes mellitus (DM) Z13.1 and Screening for lipid disorders Z13.220 [id number] [place] [address] 13 May, 2017 High risk medication use Z79.899 ; Major depressive disorder, recurrent episode, in partial remission F33.41 ; Mental retardation F79 and Obsessive compulsive disorder F42 [facility] [address], [place] [address] May, [id number] [place] [address] Apr, [facility] [id number] [id number] Mar, [facility] [address] [place] [id number] [place] [address] Jan, Major depression, recurrent F33.9 ; Mental retardation F79 and Obsessive compulsive disorder F42 [facility] [id number] [place] [address] November, Major depression, recurrent F33.9 and Obsessive compulsive disorder F42 [facility] [address], [place] [address] Sep, [facility] [id number] [place] [address] Jun, Obsessive compulsive disorder F42 ; Mental retardation F79 and Major depressive disorder, recurrent episode, in partial remission F33.41 [facility] [id number] [place] [address] Apr, [facility] [id number] [place] [address] Apr, Major depression, recurrent F33.9 ; Obsessive compulsive disorder F42 and Mental retardation F79 [facility] [address], [place] [address] Jan, [facility] [id number] [place] [address] Jan, Major depression, recurrent F33.9 ; Obsessive compulsive disorder F42 and Mental retardation F79 [facility] [address], [place] [address] Dec, [facility] [id number], [place] [address] November, [facility] [id number] [place] [address] November, [facility] [address], [place] [address] Oct, [facility] [address], [place] [address] Oct, Obsessive compulsive disorder F42 ; Major depression, recurrent F33.9 and Mental retardation F79 [facility] [address], [place] [address] Sep, [facility] [address], [place] [address] 17 Aug, 2015 [facility] [address], [place] [address] Aug, [facility] [id number] [place] [address] Aug, [facility] [id number] [place] [address] Jul, [facility] [id number] [place] [address] Jul, [facility] [id number] [place] [address] Jul, [facility] [address], [place] [address] Jun, Obsessive compulsive disorder F42 ; Major depression, recurrent F33.9 and Mental retardation F79 [facility] [address], [place] [address] Jun, [facility] [address], [place] [address] Jun, [facility] [address], [place] [address] May, [facility] [address], [place] [address] Apr, [facility] [id number] [address] 30 Mar, 2015 Generalized anxiety disorder 300.02 and Major depressive disorder, recurrent episode, mild 296.31 [facility] [address], [place] [address] 14 Mar, 2015 [facility] [address] [id number], [place] [address] Feb, [facility] [address] [facility] [id number] [place] [address] Jan, [facility] [id number] [place] [address] 10 Dec, 2014 Generalized anxiety disorder 300.02 and Depressive disorder, not elsewhere classified 311 [facility] [address] [id number] [place] [address] 14 Oct, 2014 [facility] [address] [facility] [id number] [place] [address], [place] [address] Oct, [facility] [address] [facility] [id number] [place] [address] Sep, [facility] [id number] [place] [address] Sep, [facility] [id number] [place] [address] Jun, [facility] [id number] [place] [address] Jun, [facility] [id number] [place] [address] May, [facility] [id number], [place] [address] May, [facility] [address] [facility] [id number], [place] [address] May, [facility] [address] [facility] [id number] [place] [address] Apr, [facility] [address] [facility] [id number] [place] [address] Apr, [facility] [id number] [place] [address] Feb, [facility] [place] [facility] [address] [id number] [place] [address] Jan, [facility] [place] [facility] [address] [id number] [place] [address] Jan, [facility] [place] [facility] [address] [id number] [place] [address] Dec, [facility] [place] [facility] [address] [id number] [place] [address] Dec, [facility] [place] [facility] [address] [id number] [place] [address] Oct, [facility] [place] [facility] [address] [id number] [place] [address] Oct, [facility] [place] [facility] [address] [id number] [place] [address] Oct, [facility] [place] [facility] [address] [id number] [place] [address] Oct, [facility] [place] [facility] [address] [id number] [place] [address] Sep, [facility] [place] [facility] [address] [id number] [place] [address] Sep, [facility] [place] [facility] [address] [id number] [place] [address] Sep, [facility] [place] [facility] [address] [id number] [place] [address] Sep, [facility] [place] [facility] [address] [id number] [place] [address] Aug, [facility] [place] [facility] [address] [id number] [place] [address] Aug, [facility] [place] [facility] [address] [id number] [place] [address] Aug, [facility] [place] [facility] [address] [id number] [place] [address] Aug, [facility] [place] [facility] [address] [id number] [place] [address] Jul, [facility] [place] [facility] [address] [id number] [place] [address] Jul, [facility] [place] [facility] [address] [id number] [place] [address] Jul, [facility] [place] [facility] [address] [id number] [place] [address] Jul, [facility] [place] [facility] [address] [id number] [place] [address] Jul, [facility] [place] [facility] [address] [id number] [place] [address] Jul, [facility] [place] [facility] [address] [id number] [place] [address] Apr, [facility] [place] [facility] [address] [id number], [place] [address] Apr, [facility] [place] [facility] [address] [id number], [place] [address] Apr, [facility] [place] [facility] [address] [id number], [place] [address] Apr, [facility] [place] [facility] [address] [id number], [place] [address] Apr, [facility] [place] [facility] [address] [id number], [place] [address] Apr, [facility] [place] [facility] [address] [id number] [place] [address] Apr, [facility] [place] [facility] [address] [id number], [place] [address] Apr, [facility] [place] [facility] [address] [id number], [place] [address] Apr, [facility] [place] [facility] [address] [id number] [place] [address] 17 Apr, 2012 [facility] [address] [id number] [place] [address] 16 Apr, 2012 [facility] [address] [id number] [place] [address] 16 Apr, 2012 [facility] [address] [id number] [place] [address] 16 Apr, 2012 [facility] [address] [id number] [place] [address] 16 Apr, 2013 [facility] [address] [id number] [place] [address] 18 Mar, 2013 [facility] [address] [id number] [place] [address] 17 Mar, 2013 [facility] [address] [id number] [place] [address] 16 Mar, 2013 [facility] [address] [id number] [place] [address] 13 Mar, 2013 [facility] [address] [id number] [place] [address] Feb, [facility] [address] [id number] [place] [address] Feb, [facility] [address] [id number] [place] [address] Jan, [facility] [address] [id number] [place] [address] Jan, [facility] [place] [facility] [address] [id number] [place] [address] Jan, [facility] [place] [facility] [address] [id number] [place] [address] Jan, [facility] [place] [facility] [address] [id number] [place] [address] Jan, [facility] [place] [facility] [address] [id number] [place] [address] 17 Jan, 2013 [facility] [place] [facility] [address] [id number] [place] [address] Jan, [facility] [place] [facility] [address] [id number] [place] [address] Jan, [facility] [place] [facility] [address] [id number] [place] [address] Dec, [facility] [place] [facility] [address] [id number] [place] [address] Dec, [facility] [place] [facility] [address] [id number] [place] [address] Dec, [facility] [place] [facility] [address] [id number] [place] [address] Dec, [facility] [place] [facility] [address] [id number] [place] [address] Dec, [facility] [place] [facility] [address] [id number] [place] [address] Dec, [facility] [place] [facility] [address] [id number] [place] [address] Dec, [facility] [place] [facility] [address] [id number] [place] [address] Dec, [facility] [place] [facility] [address] [id number] [place] [address] Dec, [facility] [place] [facility] [address] [id number] [place] [address] November, [facility] [place] [facility] [address] [id number] [place] [address] Oct, [facility] [place] [facility] [address] [id number] [place] [address] Oct, [facility] [place] [facility] [address] [id number], [place] [address] Oct, [facility] [address] [id number] [place] [address] Oct, [facility] [address] [id number] [place] [address] Oct, [facility] [address] [id number] [place] [address] Oct, [facility] [address] [id number] [place] [address] Aug, [facility] [address] [id number] [place] [address] Aug, [facility] [address] [id number] [place] [address] Jul, [facility] [address] [id number] [place] [address] Jul, [facility] [address] [id number] [place] [address] Jul, [facility] [address] [id number] [place] [address] Jul, [facility] [address] [id number] [place] [address] Jul, [facility] [address] [id number] [place] [address] Jul, [facility] [address] [id number] [place] [address] Jul, [facility] [address] [id number] [place] [address] Jun, [facility] [address] [id number] [place] [address] Jun, [facility] [address] [id number] [place] [address] Jun, [facility] [place] [facility] [address] [id number] [place] [address] Jun, [facility] [place] [facility] [address] [id number] [place] [address] Jun, [facility] [place] [facility] [address] [id number] [place] [address] Apr, [facility] [place] [facility] [address] [id number] [place] [address] Apr, [facility] [place] [facility] [address] [id number] [place] [address] Apr, [facility] [place] [facility] [address] [id number] [place] [address] Mar, [facility] [place] [facility] [address] [id number] [place] [address] Feb, [facility] [place] [facility] [address] [id number] [place] [address] Jan, [facility] [place] [facility] [address] [id number] [place] [address] Jan, [facility] [place] [facility] [address] [id number] [place] [address] Dec, [facility] [place] [facility] [address] [id number] [place] [address] November, [facility] [place] [facility] [address] [id number] [place] [address] Oct, [facility] [place] [facility] [address] [id number] [place] [address] Sep, [facility] [place] [facility] [address] [id number] [place] [address] Sep, [facility] [place] [facility] [address] [id number] [place] [address] Aug, [facility] [place] [facility] [address] [id number] [place] [address] Aug, [facility] [address] [id number] [address] Aug, [facility] [id number] [address] Jul, [facility] [id number] [address] Jul, [facility] [id number] [address] Jun, [facility] [id number] [address] Jun, [facility] [id number] [address] May, [facility] [id number], [place] [address] Apr, [facility] [address] [id number], [place] [address] Apr, IMMUNIZATIONS No Known Immunizations SOCIAL HISTORY Never Assessed REASON FOR VISIT [facility] PLAN OF CARE VITAL SIGNS MEDICATIONS Unknown Medications RESULTS No Results PROCEDURES No Known procedures INSTRUCTIONS MEDICATIONS ADMINISTERED No Known Medications MEDICAL (GENERAL) HISTORY Type Description Date Medical History GERD Surgical History cholecystectomy 2013 Hospitalization History ED [facility]- Chest Pain 08/26/2017 Hospitalization History Hospital, UTI/Septic 02/20/18 Hospitalization History viral infection 03/07/18
--- OUTSIDE RECORDS SUMMARY | 2018-12-13 12:36 | XMS REPORT ---
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 Name Role Phone Migration, Doctor Unavailable Unavailable PROBLEMS Type Condition ICD9-CM Code FMT25-NM Code Onset Dates Condition Status SNOMED Code Problem Obsessive compulsive disorder F42 Active 726507022 Problem Major depressive disorder, recurrent episode, in partial remission F33.41 Active 41113880 Problem Major depression, recurrent F33.9 Active 26314753 Problem MR (mental retardation) F79 Active 327052671 Problem Morbid (severe) obesity due to excess calories E66.01 Active 41450521832112 Problem Coarse tremors G25.2 Active 68680481 Problem Altered mental status, unspecified altered mental status type R41.82 Active 873422619 Problem Developmental non-verbal 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 Active 384095004 Problem Dementia without behavioral disturbance, unspecified dementia type F03.90 Active 40742939 Problem Essential tremor G25.0 Active 952727310 Problem Moderate intellectual disabilities F71 Active 13155920 Problem Hyperlipidemia, unspecified hyperlipidemia type E78.5 Active 82457248 Problem Obsessive-compulsive disorder, unspecified F42.9 Active 257899142 Problem BMI 40.0-44.9, adult Z68.41 Active 670579254 Problem Urinary incontinence, nocturnal enuresis N39.44 Active 2316255 Problem Constipation, unspecified constipation type K59.00 Active 28518428 ALLERGIES No Information ENCOUNTERS Encounter Location Date Diagnosis [facility] [id number] [address] November, [facility] [id number] [place] [address] Oct, [facility] [address] [address] Jul, Yeast dermatitis B37.2 [facility] [address] [address] Jun, Coarse tremors G25.2 ; Urinary incontinence, nocturnal enuresis N39.44 and Dementia without behavioral disturbance, unspecified dementia type F03.90 [facility] [id number] [place] [address] Apr, [facility] [id number] [place] [address] Apr, Dementia without behavioral disturbance, unspecified dementia type F03.90 [place] [id number] [place] [address] Apr, [place] [id number] [place] [address] Apr, [place] [id number] [place] [address] Apr, Moderate intellectual disabilities F71 ; Morbid (severe) obesity due to excess calories E66.01 ; Coarse tremors G25.2 ; Urinary incontinence, nocturnal enuresis N39.44 ; Dementia without behavioral disturbance, unspecified dementia type F03.90 and At risk for falls Z91.81 [place] [id number] [place] [address] Apr, Constipation, unspecified constipation type K59.00 ; Urinary incontinence, nocturnal enuresis N39.44 ; MR (mental retardation) F79 and Obsessive- compulsive disorder, unspecified F42.9 [place] [id number] [place] [address] Apr, [place] [id number] [place] [address] Apr, Altered mental status, unspecified altered mental status type R41.82 ; Obsessive-compulsive disorder, unspecified F42.9 ; Developmental non-verbal 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 ; BMI 40.0-44.9, adult Z68.41 and Recurrent UTI N39.0 [place] [id number] [place] [address] Mar, Altered mental status, unspecified altered mental status type R41.82 ; Tachycardia R00.0 ; Acute cystitis without hematuria N30.00 and Bacteremia R78.81 [place] [id number] [place] [address] Mar, [place] [id number] [place] [address] Mar, [place] [address] [address] Feb, [place] [address] [address] Feb, Dysuria R30.0 [place] [id number] [place] [address] Feb, Dysuria R30.0 ; Acute cystitis without hematuria N30.00 and Tachycardia R00.0 [facility] [id number] [place] [address] Feb, Coarse tremors G25.2 and BMI 45.0-49.9, adult Z68.42 [place] [address] [address] Jan, [place] [id number] [place] [address] Jan, Major depressive disorder, recurrent episode, in partial remission F33.41 [address] [id number] [place] [address] Dec, Hyperglycemia R73.9 ; Hyperlipidemia, unspecified hyperlipidemia type E78.5 ; Body mass index (BMI) of 40.0-44.9 in adult Z68.41 and MR (mental retardation) F79 [facility] [id number] [place] [address] November, Major depressive disorder, recurrent episode, in partial remission F33.41 ; Mental retardation F79 ; Obsessive compulsive disorder F42 and BMI 50.0-59.9, adult Z68.43 [facility] [address] [address] Oct, [facility] [id number] [place] [address] Jul, Acute nasopharyngitis J00 and Vomiting, intractability of vomiting not specified, presence of nausea not specified, unspecified vomiting type R11.10 [facility] [id number] [place] [address] 09 Jul, 2017 BMI 45.0-49.9, adult Z68.42 ; Major depressive disorder, recurrent episode, in partial remission F33.41 ; Mental retardation F79 and Obsessive compulsive disorder F42 [place] [id number] [place] [address] Jul, High risk medication use Z79.899 [facility] [id number] [place] [address] Jun, Morbid (severe) obesity due to excess calories E66.01 ; Body mass index (BMI) of 40.0-44.9 in adult Z68.41 ; Mental retardation F79 ; Elevated blood pressure reading R03.0 ; Screening for diabetes mellitus (DM) Z13.1 and Screening for lipid disorders Z13.220 [place] [address] [place] [address] 13 May, 2017 High risk medication use Z79.899 ; Major depressive disorder, recurrent episode, in partial remission F33.41 ; Mental retardation F79 and Obsessive compulsive disorder F42 [facility] [address] [address] May, [id number] [place] [address] Apr, [facility] [id number] [id number] Mar, [facility] [address] [place] [id number] [place] [address] Jan, Major depression, recurrent F33.9 ; Mental retardation F79 and Obsessive compulsive disorder F42 [facility] [id number] [place] [address] November, Major depression, recurrent F33.9 and Obsessive compulsive disorder F42 [facility] [address] [address] Sep, [facility] [id number] [place] [address] Jun, Obsessive compulsive disorder F42 ; Mental retardation F79 and Major depressive disorder, recurrent episode, in partial remission F33.41 [facility] [id number] [place] [address] Apr, [facility] [id number] [place] [address] Apr, Major depression, recurrent F33.9 ; Obsessive compulsive disorder F42 and Mental retardation F79 [facility] [address] [address] Jan, [facility] [id number] [place] [address] Jan, Major depression, recurrent F33.9 ; Obsessive compulsive disorder F42 and Mental retardation F79 [facility] [address] [address] Dec, [facility] [id number] [address] November, [facility] [id number] [place] [address] November, [facility] [address] [address] Oct, [facility] [address] [address] Oct, Obsessive compulsive disorder F42 ; Major depression, recurrent F33.9 and Mental retardation F79 [facility] [address] [address] Sep, [facility] [address] [address] 17 Aug, 2015 [facility] [address] [address] Aug, [facility] [id number] [place] [address] Aug, [facility] [id number] [place] [address] Jul, [facility] [id number] [place] [address] Jul, [facility] [id number] [place] [address] Jul, [facility] [address] [address] Jun, Obsessive compulsive disorder F42 ; Major depression, recurrent F33.9 and Mental retardation F79 [facility] [address] [address] Jun, [facility] [address] [address] Jun, [facility] [address] [address] May, [facility] [address] [address] Apr, [facility] [id number] [address] 30 Mar, 2015 Generalized anxiety disorder 300.02 and Major depressive disorder, recurrent episode, mild 296.31 [facility] [address] [address] 14 Mar, 2015 [facility] [address] [id number] [address] Feb, [facility] [address] [facility] [id number] [place] [address] Jan, [facility] [address] [address] 10 Dec, 2014 Generalized anxiety disorder 300.02 and Depressive disorder, not elsewhere classified 311 [facility] [address] [id number] [place] [address] 14 Oct, 2014 [facility] [address] [facility] [id number] [place] [address], [place] [address] Oct, [facility] [address] [facility] [id number] [place] [address] Sep, [facility] [id number] [place] [address] Sep, [facility] [address] [address] Jun, [facility] [id number] [address] Jun, [facility] [address] [address] May, [facility] [id number] [address] May, [facility] [address] [facility] [id number] [address] May, [facility] [address] [facility] [id number] [place] [address] Apr, [facility] [address] [facility] [id number] [place] [address] Apr, [facility] [id number] [address] Feb, [facility] [place] [facility] [address] [id number] [place] [address] Jan, [facility] [place] [facility] [address] [id number] [place] [address] Jan, [facility] [place] [facility] [address] [id number] [place] [address] Dec, [facility] [place] [facility] [address] [id number] [place] [address] Dec, [facility] [place] [facility] [address] [id number] [place] [address] Oct, [facility] [place] [facility] [address] [id number] [place] [address] Oct, [facility] [place] [facility] [address] [id number] [place] [address] Oct, [facility] [place] [facility] [address] [id number] [place] [address] Oct, [facility] [place] [facility] [address] [id number] [place] [address] Sep, [facility] [place] [facility] [address] [id number] [place] [address] Sep, [facility] [place] [facility] [address] [id number] [place] [address] Sep, [facility] [place] [facility] [address] [id number] [place] [address] Sep, [facility] [place] [facility] [address] [id number] [place] [address] Aug, [facility] [place] [facility] [address] [id number] [place] [address] Aug, [facility] [place] [facility] [address] [id number] [place] [address] Aug, [facility] [place] [facility] [address] [id number] [place] [address] Aug, [facility] [place] [facility] [address] [id number] [place] [address] Jul, [facility] [place] [facility] [address] [id number] [place] [address] Jul, [facility] [place] [facility] [address] [id number] [place] [address] Jul, [facility] [place] [facility] [address] [id number] [place] [address] Jul, [facility] [place] [facility] [address] [id number] [place] [address] Jul, [facility] [place] [facility] [address] [id number] [place] [address] Jul, [facility] [place] [facility] [address] [id number] [place] [address] Apr, [facility] [place] [facility] [address] [id number] [address] Apr, [facility] [place] [facility] [address] [id number] [address] Apr, [facility] [place] [facility] [address] [id number] [address] Apr, [facility] [place] [facility] [address] [id number] [address] Apr, [facility] [place] [facility] [address] [id number] [address] Apr, [facility] [place] [facility] [address] [id number] [place] [address] Apr, [facility] [place] [facility] [address] [id number] [place] [address] Apr, [facility] [place] [facility] [address] [id number] [address] Apr, [facility] [place] [facility] [address] [id number] [place] [address] 17 Apr, 2012 [facility] [address] [id number] [place] [address] 16 Apr, 2012 [facility] [address] [id number] [place] [address] 16 Apr, 2012 [facility] [address] [id number] [place] [address] 16 Apr, 2012 [facility] [address] [id number] [place] [address] 16 Apr, 2013 [facility] [address] [id number] [place] [address] 18 Mar, 2013 [facility] [address] [id number] [place] [address] 17 Mar, 2013 [facility] [address] [id number] [place] [address] 16 Mar, 2013 [facility] [address] [id number] [place] [address] 13 Mar, 2013 [facility] [address] [id number] [place] [address] Feb, [facility] [address] [id number] [place] [address] Feb, [facility] [address] [id number] [place] [address] Jan, [facility] [address] [id number] [place] [address] Jan, [facility] [place] [facility] [address] [id number] [place] [address] Jan, [facility] [place] [facility] [address] [id number] [place] [address] Jan, [facility] [place] [facility] [address] [id number] [place] [address] Jan, [facility] [place] [facility] [address] [id number] [place] [address] 17 Jan, 2013 [facility] [place] [facility] [address] [id number] [place] [address] Jan, [facility] [place] [facility] [address] [id number] [place] [address] Jan, [facility] [place] [facility] [address] [id number] [place] [address] Dec, [facility] [place] [facility] [address] [id number] [place] [address] Dec, [facility] [place] [facility] [address] [id number] [place] [address] Dec, [facility] [place] [facility] [address] [id number] [place] [address] Dec, [facility] [place] [facility] [address] [id number] [place] [address] Dec, [facility] [place] [facility] [address] [id number] [place] [address] Dec, [facility] [place] [facility] [address] [id number] [place] [address] Dec, [facility] [place] [facility] [address] [id number] [place] [address] Dec, [facility] [place] [facility] [address] [id number] [place] [address] Dec, [facility] [place] [facility] [address] [id number] [place] [address] November, [facility] [place] [facility] [address] [id number] [place] [address] Oct, [facility] [place] [facility] [address] [id number] [place] [address] Oct, [facility] [place] [facility] [address] [id number] [address] Oct, [facility] [address] [id number] [place] [address] Oct, [facility] [address] [id number] [place] [address] Oct, [facility] [address] [id number] [place] [address] Oct, [facility] [address] [id number] [place] [address] Aug, [facility] [address] [id number] [place] [address] Aug, [facility] [address] [id number] [place] [address] Jul, [facility] [address] [id number] [place] [address] Jul, [facility] [address] [id number] [place] [address] Jul, [facility] [address] [id number] [place] [address] Jul, [facility] [address] [id number] [place] [address] Jul, [facility] [address] [id number] [place] [address] Jul, [facility] [address] [id number] [place] [address] Jul, [facility] [address] [id number] [place] [address] Jun, [facility] [address] [id number] [place] [address] Jun, [facility] [address] [id number] [place] [address] Jun, [facility] [place] [facility] [address] [id number] [place] [address] Jun, [facility] [place] [facility] [address] [id number] [place] [address] Jun, [facility] [place] [facility] [address] [id number] [place] [address] Apr, [facility] [place] [facility] [address] [id number] [place] [address] Apr, [facility] [place] [facility] [address] [id number] [place] [address] Apr, [facility] [place] [facility] [address] [id number] [place] [address] Mar, [facility] [place] [facility] [address] [id number] [place] [address] Feb, [facility] [place] [facility] [address] [id number] [place] [address] Jan, [facility] [place] [facility] [address] [id number] [place] [address] Jan, [facility] [place] [facility] [address] [id number] [place] [address] Dec, [facility] [place] [facility] [address] [id number] [place] [address] November, [facility] [place] [facility] [address] [id number] [place] [address] Oct, [facility] [place] [facility] [address] [id number] [place] [address] Sep, [facility] [place] [facility] [address] [id number] [place] [address] Sep, [facility] [place] [facility] [address] [id number] [place] [address] Aug, [facility] [place] [facility] [address] [id number] [place] [address] Aug, [facility] [id number] [address] Aug, [facility] [address] [address] Jul, [facility] [id number] [address] Jul, [facility] [id number] [address] Jun, [facility] [address] [address] Jun, [facility] [address] [address] May, [facility] [address] [address] Apr, [facility] [address] [id number] [address] Apr, IMMUNIZATIONS No Known Immunizations SOCIAL HISTORY Never Assessed REASON FOR VISIT EMR-[facility] [place] PLAN OF CARE VITAL SIGNS MEDICATIONS Unknown Medications RESULTS No Results PROCEDURES No Known procedures INSTRUCTIONS MEDICATIONS ADMINISTERED No Known Medications MEDICAL (GENERAL) HISTORY Type Description Date Medical History GERD Surgical History cholecystectomy 2013 Hospitalization History ED [place]- Chest Pain 08/26/2017 Hospitalization History Hospital, UTI/Septic 02/20/18 Hospitalization History viral infection 03/07/18
--- OUTSIDE RECORDS SUMMARY | 2018-12-13 12:36 | XMS REPORT ---
Author Author Migration, Doctor Organization [facility] Address Unknown Phone Unavailable Care Team Providers Care Computer Systems Analyst Name Role Phone Migration, Doctor Unavailable Unavailable PROBLEMS Type Condition ICD9-CM Code [id number] Code Onset Dates Condition Status SNOMED Code Problem Obsessive compulsive disorder F42 Active 068053437 Problem Major depressive disorder, recurrent episode, in partial remission F33.41 Active 42631619 Problem Major depression, recurrent F33.9 Active 48959551 Problem MR (mental retardation) F79 Active 993809518 Problem Morbid (severe) obesity due to excess calories E66.01 Active 37121649152216 Problem Coarse tremors G25.2 Active 45622970 Problem Altered mental status, unspecified altered mental status type R41.82 Active 899571247 Problem Developmental non-verbal 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 Active 680963926 Problem Dementia without behavioral disturbance, unspecified dementia type F03.90 Active 77427326 Problem Essential tremor G25.0 Active 474026593 Problem Moderate intellectual disabilities F71 Active 49215551 Problem Hyperlipidemia, unspecified hyperlipidemia type E78.5 Active 50139863 Problem Obsessive-compulsive disorder, unspecified F42.9 Active 330693339 Problem BMI 40.0-44.9, adult Z68.41 Active 857470731 Problem Urinary incontinence, nocturnal enuresis N39.44 Active 4173778 Problem Constipation, unspecified constipation type K59.00 Active 51184640 ALLERGIES No Information ENCOUNTERS Encounter Location Date Diagnosis [facility] [id number] [address] Oct, [facility] [address] [address] Jul, Yeast dermatitis B37.2 [facility] [id number] [address] Jun, Coarse tremors G25.2 ; Urinary incontinence, nocturnal enuresis N39.44 and Dementia without behavioral disturbance, unspecified dementia type F03.90 [address] [address] [address] Apr, [place] [id number] [place] [address] Apr, Dementia without behavioral disturbance, unspecified dementia type F03.90 [place] [id number] [place] [address] Apr, [place] [id number] [place] [address] Apr, [place] [id number] [place] [address] Apr, Moderate intellectual disabilities F71 ; Morbid (severe) obesity due to excess calories E66.01 ; Coarse tremors G25.2 ; Urinary incontinence, nocturnal enuresis N39.44 ; Dementia without behavioral disturbance, unspecified dementia type F03.90 and At risk for falls Z91.81 [address] [address] [place] [address] Apr, Constipation, unspecified constipation type K59.00 ; Urinary incontinence, nocturnal enuresis N39.44 ; MR (mental retardation) F79 and Obsessive- compulsive disorder, unspecified F42.9 [place] [address] [place] [address] Apr, [place] [id number] [place] [address] Apr, Altered mental status, unspecified altered mental status type R41.82 ; Obsessive-compulsive disorder, unspecified F42.9 ; Developmental non-verbal 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 ; BMI 40.0-44.9, adult Z68.41 and Recurrent UTI N39.0 [address] [address] [place] [address] Mar, Altered mental status, unspecified altered mental status type R41.82 ; Tachycardia R00.0 ; Acute cystitis without hematuria N30.00 and Bacteremia R78.81 [place] [address] [address] Mar, [facility] [id number] [place] [address] Mar, [place] [id number] [place] [address] Feb, [facility] [id number] [place] [address] Feb, Dysuria R30.0 [place] [id number] [place] [address] Feb, Dysuria R30.0 ; Acute cystitis without hematuria N30.00 and Tachycardia R00.0 [facility] [id number] [place] [address] Feb, Coarse tremors G25.2 and BMI 45.0-49.9, adult Z68.42 [place] [id number] [place] [address] Jan, [place] [id number] [place] [address] Jan, Major depressive disorder, recurrent episode, in partial remission F33.41 [place] [id number] [place] [address] Dec, Hyperglycemia R73.9 ; Hyperlipidemia, unspecified hyperlipidemia type E78.5 ; Body mass index (BMI) of 40.0-44.9 in adult Z68.41 and MR (mental retardation) F79 [address] [id number] [place] [address] November, Major depressive disorder, recurrent episode, in partial remission F33.41 ; Mental retardation F79 ; Obsessive compulsive disorder F42 and BMI 50.0-59.9, adult Z68.43 [place] [id number] [place] [address] Oct, [facility] [id number] [address] Jul, Acute nasopharyngitis J00 and Vomiting, intractability of vomiting not specified, presence of nausea not specified, unspecified vomiting type R11.10 [facility] [address] [address] Jul, BMI 45.0-49.9, adult Z68.42 ; Major depressive disorder, recurrent episode, in partial remission F33.41 ; Mental retardation F79 and Obsessive compulsive disorder F42 [place] [id number] [place] [address] Jul, High risk medication use Z79.899 [facility] [address] [place] [address] Jun, Morbid (severe) obesity due to excess calories E66.01 ; Body mass index (BMI) of 40.0-44.9 in adult Z68.41 ; Mental retardation F79 ; Elevated blood pressure reading R03.0 ; Screening for diabetes mellitus (DM) Z13.1 and Screening for lipid disorders Z13.220 [address] [address] [place] [address] May, High risk medication use Z79.899 ; Major depressive disorder, recurrent episode, in partial remission F33.41 ; Mental retardation F79 and Obsessive compulsive disorder F42 [facility] [address] [address] May, [facility] [id number] [address] Apr, [facility] [address] [facility] [address] [id number] [id number] Mar, [facility] [address] [facility] [id number] [address] Jan, Major depression, recurrent F33.9 ; Mental retardation F79 and Obsessive compulsive disorder F42 [facility] [address] [address] November, Major depression, recurrent F33.9 and Obsessive compulsive disorder F42 [facility] [address] [address] Sep, [facility] [id number] [address] Jun, Obsessive compulsive disorder F42 ; Mental retardation F79 and Major depressive disorder, recurrent episode, in partial remission F33.41 [facility] [address] [address] Apr, [facility] [id number] [place] [address] Apr, Major depression, recurrent F33.9 ; Obsessive compulsive disorder F42 and Mental retardation F79 [facility] [id number] [place] [address] Jan, [facility] [address] [address] Jan, Major depression, recurrent F33.9 ; Obsessive compulsive disorder F42 and Mental retardation F79 [facility] [address] [address] Dec, [facility] [address] [address] November, [facility] [address] [address] November, [facility] [address] [address] Oct, [facility] [address] [address] Oct, Obsessive compulsive disorder F42 ; Major depression, recurrent F33.9 and Mental retardation F79 [facility] [id number] [place] [address] 16 Sep, 2015 [facility] [address] [address] 17 Aug, 2015 [facility] [address] [address] 15 Aug, 2015 [facility] [address] [address] Aug, [facility] [id number] [place] [address] Jul, [facility] [id number] [place] [address] Jul, [facility] [id number] [place] [address] Jul, [facility] [address] [place] [address] Jun, Obsessive compulsive disorder F42 ; Major depression, recurrent F33.9 and Mental retardation F79 [facility] [address] [address] Jun, [facility] [id number] [place] [address] Jun, [facility] [address] [address] May, [facility] [address] [place] [address] 15 Apr, 2015 [facility] [address] [address] 30 Mar, 2015 Generalized anxiety disorder 300.02 and Major depressive disorder, recurrent episode, mild 296.31 [facility] [address] [address] 14 Mar, 2015 [facility] [address] [address] Feb, [facility] [address] [id number] [place] [address] Jan, [facility] [address] [facility] [id number] [place] [address] Dec, Generalized anxiety disorder 300.02 and Depressive disorder, not elsewhere classified 311 [facility] [address] [facility] [id number] [place] [address] 14 Oct, 2014 [facility] [address] [facility] [id number] [place] [address] Oct, [facility] [address] [facility] [id number] [place] [address] Sep, [facility] [address] [facility] [id number] [place] [address] Sep, [facility] [address] [place] [address], [place] [address] Jun, [facility] [id number] [place] [address] Jun, [facility] [id number] [place] [address] May, [facility] [id number] [place] [address] May, [facility] [id number] [address] May, [facility] [address] [facility] [id number] [address] Apr, [facility] [address] [facility] [id number] [place] [address] Apr, [facility] [address] [facility] [id number] [address] Feb, [facility] [id number] [place] [address] Jan, [facility] [place] [facility] [address] [id number] [place] [address] Jan, [facility] [place] [facility] [address] [id number] [place] [address] Dec, [facility] [place] [facility] [address] [id number] [place] [address] Dec, [facility] [place] [facility] [address] [id number] [place] [address] Oct, [facility] [place] [facility] [address] [id number] [place] [address] Oct, [facility] [place] [facility] [address] [id number] [place] [address] Oct, [facility] [place] [facility] [address] [id number] [place] [address] Oct, [facility] [place] [facility] [address] [id number] [place] [address] Sep, [facility] [place] [facility] [address] [id number] [place] [address] Sep, [facility] [place] [facility] [address] [id number] [place] [address] Sep, [facility] [place] [facility] [address] [id number] [place] [address] Sep, [facility] [place] [facility] [address] [id number] [place] [address] Aug, [facility] [place] [facility] [address] [id number] [place] [address] Aug, [facility] [place] [facility] [address] [id number] [place] [address] Aug, [facility] [place] [facility] [address] [id number] [place] [address] Aug, [facility] [place] [facility] [address] [id number] [place] [address] Jul, [facility] [place] [facility] [address] [id number] [place] [address] Jul, [facility] [place] [facility] [address] [id number] [place] [address] Jul, [facility] [place] [facility] [address] [id number] [place] [address] Jul, [facility] [place] [facility] [address] [id number] [place] [address] Jul, [facility] [place] [facility] [address] [id number] [place] [address] Jul, [facility] [place] [facility] [address] [id number] [place] [address] Apr, [facility] [place] [facility] [address] [id number] [place] [address] Apr, [facility] [place] [facility] [address] [id number] [address] Apr, [facility] [place] [facility] [address] [id number] [place] [address] Apr, [facility] [place] [facility] [address] [id number] [place] [address] Apr, [facility] [place] [facility] [address] [id number] [address] Apr, [facility] [place] [facility] [address] [id number] [address] 18 Apr, 2013 [facility] [place] [facility] [address] [id number] [place] [address] 18 Apr, 2013 [facility] [place] [facility] [address] [id number] [place] [address] Apr, [facility] [place] [facility] [address] [id number] [place] [address] Apr, [facility] [place] [facility] [address] [id number] [place] [address] 16 Apr, 2012 [facility] [address] [id number] [place] [address] 16 Apr, 2012 [facility] [address] [id number] [place] [address] 16 Apr, 2012 [facility] [address] [id number] [place] [address] 16 Apr, 2012 [facility] [address] [id number] [place] [address] 18 Mar, 2013 [facility] [address] [id number] [place] [address] 17 Mar, 2013 [facility] [address] [id number] [place] [address] 16 Mar, 2013 [facility] [address] [id number] [place] [address] 13 Mar, 2013 [facility] [address] [id number] [place] [address] Feb, [facility] [address] [id number] [place] [address] Feb, [facility] [address] [id number] [place] [address] Jan, [facility] [address] [id number] [place] [address] Jan, [facility] [address] [id number] [place] [address] Jan, [facility] [place] [facility] [address] [id number] [place] [address] Jan, [facility] [place] [facility] [address] [id number] [place] [address] Jan, [facility] [address] [id number] [place] [address] 17 Jan, 2013 [facility] [place] [facility] [address] [id number] [place] [address] 05 Jan, 2013 [facility] [place] [facility] [address] [id number] [place] [address] Jan, [facility] [place] [facility] [address] [id number] [place] [address] Dec, [facility] [place] [facility] [address] [id number] [place] [address] Dec, [facility] [place] [facility] [address] [id number] [place] [address] Dec, [facility] [place] [facility] [address] [id number] [place] [address] Dec, [facility] [place] [facility] [address] [id number] [place] [address] Dec, [facility] [place] [facility] [address] [id number] [place] [address] Dec, [facility] [place] [facility] [address] [id number] [place] [address] Dec, [facility] [place] [facility] [address] [id number] [place] [address] Dec, [facility] [place] [facility] [address] [id number] [place] [address] Dec, [facility] [place] [facility] [address] [id number] [place] [address] November, [facility] [place] [facility] [address] [id number] [place] [address] Oct, [facility] [place] [facility] [address] [id number] [place] [address] Oct, [facility] [place] [facility] [address] [id number] [place] [address] Oct, [facility] [place] [facility] [address] [id number] [address] Oct, [facility] [address] [id number] [place] [address] Oct, [facility] [address] [id number] [place] [address] Oct, [facility] [address] [id number] [place] [address] Aug, [facility] [address] [id number] [place] [address] Aug, [facility] [address] [id number] [place] [address] Jul, [facility] [address] [id number] [place] [address] Jul, [facility] [address] [id number] [place] [address] Jul, [facility] [address] [id number] [place] [address] Jul, [facility] [address] [facility] [id number] [place] [address] Jul, [facility] [address] [facility] [id number] [place] [address] Jul, [facility] [address] [id number] [place] [address] Jul, [facility] [address] [id number] [place] [address] Jun, [facility] [address] [id number] [place] [address] Jun, [facility] [address] [id number] [place] [address] Jun, [facility] [address] [id number] [place] [address] Jun, [facility] [place] [facility] [address] [id number] [place] [address] Jun, [facility] [place] [facility] [address] [id number] [place] [address] Apr, [facility] [place] [facility] [address] [id number] [place] [address] Apr, [facility] [place] [facility] [address] [id number] [place] [address] Apr, [facility] [place] [facility] [address] [id number] [place] [address] Mar, [facility] [place] [facility] [address] [id number] [place] [address] Feb, [facility] [place] [facility] [address] [id number] [place] [address] Jan, [facility] [place] [facility] [address] [id number] [place] [address] Jan, [facility] [place] [facility] [address] [id number] [place] [address] Dec, [facility] [place] [facility] [address] [id number] [place] [address] November, [facility] [place] [facility] [address] [id number] [place] [address] Oct, [facility] [place] [facility] [address] [id number] [place] [address] Sep, [facility] [place] [facility] [address] [id number] [place] [address] Sep, [facility] [place] [facility] [address] [id number] [place] [address] Aug, [facility] [place] [facility] [address] [id number] [place] [address] Aug, [facility] [place] [facility] [address] [id number] [place] [address] Aug, [facility] [id number] [address] Jul, [facility] [id number] [address] Jul, [facility] [id number] [address] Jun, [facility] [id number] [address] Jun, [facility] [id number] [address] May, [facility] [id number] [address] Apr, [facility] [id number] [address] Apr, IMMUNIZATIONS No Known Immunizations SOCIAL HISTORY Never Assessed REASON FOR VISIT [facility] [place] PLAN OF CARE VITAL SIGNS MEDICATIONS Unknown Medications RESULTS No Results PROCEDURES No Known procedures INSTRUCTIONS MEDICATIONS ADMINISTERED No Known Medications MEDICAL (GENERAL) HISTORY Type Description Date Medical History GERD Surgical History cholecystectomy 2013 Hospitalization History ED [facility]- Chest Pain 08/26/2017 Hospitalization History Hospital, UTI/Septic 02/20/18 Hospitalization History viral infection 03/07/18
--- OUTSIDE RECORDS SUMMARY | 2018-12-13 12:37 | XMS REPORT ---
Author Author Migration, Doctor Organization [facility] Address Unknown Phone Unavailable Care Team Providers Care Luggage Liner Name Role Phone Migration, Doctor Unavailable Unavailable PROBLEMS Type Condition ICD9-CM Code IKK36-UH Code Onset Dates Condition Status SNOMED Code Problem Obsessive compulsive disorder F42 Active 999538199 Problem Major depressive disorder, recurrent episode, in partial remission F33.41 Active 62107752 Problem Major depression, recurrent F33.9 Active 88155377 Problem MR (mental retardation) F79 Active 492090658 Problem Morbid (severe) obesity due to excess calories E66.01 Active 45278100347889 Problem Coarse tremors G25.2 Active 95759406 Problem Altered mental status, unspecified altered mental status type R41.82 Active 100015516 Problem Developmental non-verbal 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 Active 125705744 Problem Dementia without behavioral disturbance, unspecified dementia type F03.90 Active 67985099 Problem Essential tremor G25.0 Active 872246234 Problem Moderate intellectual disabilities F71 Active 86025906 Problem Hyperlipidemia, unspecified hyperlipidemia type E78.5 Active 01096688 Problem Obsessive-compulsive disorder, unspecified F42.9 Active 007358737 Problem BMI 40.0-44.9, adult Z68.41 Active 767545587 Problem Urinary incontinence, nocturnal enuresis N39.44 Active 9268078 Problem Constipation, unspecified constipation type K59.00 Active 40170523 ALLERGIES No Information ENCOUNTERS Encounter Location Date Diagnosis [facility] [id number], [place] [address] Oct, [facility] [address], [place] [address] Jul, Yeast dermatitis B37.2 [facility] [id number], [place] [address] Jun, Coarse tremors G25.2 ; Urinary incontinence, nocturnal enuresis N39.44 and Dementia without behavioral disturbance, unspecified dementia type F03.90 [address], [place] [address] Apr, [address] [id number] [place] [address] Apr, Dementia without behavioral disturbance, unspecified dementia type F03.90 [address] [place] [id number] [place] [address] Apr, [address] [id number] [place] [address] Apr, [address] [id number] [place] [address] Apr, Moderate intellectual disabilities F71 ; Morbid (severe) obesity due to excess calories E66.01 ; Coarse tremors G25.2 ; Urinary incontinence, nocturnal enuresis N39.44 ; Dementia without behavioral disturbance, unspecified dementia type F03.90 and At risk for falls Z91.81 [address] [place] [place] [address] Apr, Constipation, unspecified constipation type K59.00 ; Urinary incontinence, nocturnal enuresis N39.44 ; MR (mental retardation) F79 and Obsessive- compulsive disorder, unspecified F42.9 [address] [place] [address] [place] [address] Apr, [address] [id number] [place] [address] Apr, Altered mental status, unspecified altered mental status type R41.82 ; Obsessive-compulsive disorder, unspecified F42.9 ; Developmental non-verbal 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 ; BMI 40.0-44.9, adult Z68.41 and Recurrent UTI N39.0 [address] [place] [address] [place] [address] Mar, Altered mental status, unspecified altered mental status type R41.82 ; Tachycardia R00.0 ; Acute cystitis without hematuria N30.00 and Bacteremia R78.81 [address] [place] [address], [place] [address] Mar, [facility] [id number] [place] [address] Mar, [address] [id number] [place] [address] Feb, [facility] [id number] [place] [address] Feb, Dysuria R30.0 [address] [id number] [place] [address] Feb, Dysuria R30.0 ; Acute cystitis without hematuria N30.00 and Tachycardia R00.0 [facility] [id number] [place] [address] Feb, Coarse tremors G25.2 and BMI 45.0-49.9, adult Z68.42 [place] [id number] [place] [address] Jan, [place] [id number] [place] [address] Jan, Major depressive disorder, recurrent episode, in partial remission F33.41 [address] [id number] [place] [address] Dec, Hyperglycemia R73.9 ; Hyperlipidemia, unspecified hyperlipidemia type E78.5 ; Body mass index (BMI) of 40.0-44.9 in adult Z68.41 and MR (mental retardation) F79 [address] [place] [id number] [place] [address] November, Major depressive disorder, recurrent episode, in partial remission F33.41 ; Mental retardation F79 ; Obsessive compulsive disorder F42 and BMI 50.0-59.9, adult Z68.43 [address] [place] [id number] [place] [address] Oct, [facility] [id number], [place] [address] Jul, Acute nasopharyngitis J00 and Vomiting, intractability of vomiting not specified, presence of nausea not specified, unspecified vomiting type R11.10 [facility] [address], [place] [address] Jul, BMI 45.0-49.9, adult Z68.42 ; Major depressive disorder, recurrent episode, in partial remission F33.41 ; Mental retardation F79 and Obsessive compulsive disorder F42 [address] [id number] [place] [address] Jul, High risk medication use Z79.899 [facility] [address] [place] [address] Jun, Morbid (severe) obesity due to excess calories E66.01 ; Body mass index (BMI) of 40.0-44.9 in adult Z68.41 ; Mental retardation F79 ; Elevated blood pressure reading R03.0 ; Screening for diabetes mellitus (DM) Z13.1 and Screening for lipid disorders Z13.220 [address] [place] [place] [address] May, High risk medication use Z79.899 ; Major depressive disorder, recurrent episode, in partial remission F33.41 ; Mental retardation F79 and Obsessive compulsive disorder F42 [facility] [address], [place] [address] May, [facility] [id number], [place] [address] Apr, [facility] [address] [facility] [id number] [id number] Mar, [facility] [address] [facility] [id number] [address] Jan, Major depression, recurrent F33.9 ; Mental retardation F79 and Obsessive compulsive disorder F42 [facility] [address], [place] [address] November, Major depression, recurrent F33.9 and Obsessive compulsive disorder F42 [facility] [address], [place] [address] Sep, [facility] [id number], [place] [address] Jun, Obsessive compulsive disorder F42 ; Mental retardation F79 and Major depressive disorder, recurrent episode, in partial remission F33.41 [facility] [address], [place] [address] Apr, [facility] [id number] [place] [address] Apr, Major depression, recurrent F33.9 ; Obsessive compulsive disorder F42 and Mental retardation F79 [facility] [id number] [place] [address] Jan, [facility] [address], [place] [address] Jan, Major depression, recurrent F33.9 ; Obsessive compulsive disorder F42 and Mental retardation F79 [facility] [address], [place] [address] Dec, [facility] [address], [place] [address] November, [facility] [address], [place] [address] November, [facility] [address], [place] [address] Oct, [facility] [address], [place] [address] Oct, Obsessive compulsive disorder F42 ; Major depression, recurrent F33.9 and Mental retardation F79 [facility] [id number] [place] [address] 16 Sep, 2015 [facility] [address], [place] [address] 17 Aug, 2015 [facility] [address], [place] [address] 15 Aug, 2015 [facility] [address], [place] [address] Aug, [facility] [id number] [place] [address] Jul, [facility] [address] [place] [address] Jul, [facility] [id number] [place] [address] Jul, [facility] [address] [place] [address] Jun, Obsessive compulsive disorder F42 ; Major depression, recurrent F33.9 and Mental retardation F79 [facility] [address], [place] [address] Jun, [facility] [address] [place] [address] Jun, [facility] [address], [place] [address] May, [facility] [address] [place] [address] 15 Apr, 2015 [facility] [address], [place] [address] 30 Mar, 2015 Generalized anxiety disorder 300.02 and Major depressive disorder, recurrent episode, mild 296.31 [facility] [address], [place] [address] 14 Mar, 2015 [facility] [address], [place] [address] Feb, [facility] [address] [id number] [place] [address] Jan, [facility] [address] [facility] [id number] [place] [address] Dec, Generalized anxiety disorder 300.02 and Depressive disorder, not elsewhere classified 311 [facility] [address] [facility] [id number] [place] [address] 14 Oct, 2014 [facility] [address] [facility] [id number] [place] [address] Oct, [facility] [address] [facility] [id number] [place] [address] Sep, [facility] [address] [facility] [id number] [place] [address] Sep, [facility] [address] [place] [address], [place] [address] Jun, [facility] [id number] [place] [address] Jun, [facility] [id number] [place] [address] May, [facility] [id number] [place] [address] May, [facility] [id number], [place] [address] May, [facility] [address] [facility] [id number], [place] [address] Apr, [facility] [address] [facility] [id number] [place] [address] Apr, [facility] [address] [facility] [id number], [place] [address] Feb, [facility] [id number] [place] [address] Jan, [facility] [place] [facility] [address] [id number] [place] [address] Jan, [facility] [place] [facility] [address] [id number] [place] [address] Dec, [facility] [place] [facility] [address] [id number] [place] [address] Dec, [facility] [place] [facility] [address] [id number] [place] [address] Oct, [facility] [place] [facility] [address] [id number] [place] [address] Oct, [facility] [place] [facility] [address] [id number] [place] [address] Oct, [facility] [place] [facility] [address] [id number] [place] [address] Oct, [facility] [place] [facility] [address] [id number] [place] [address] Sep, [facility] [place] [facility] [address] [id number] [place] [address] Sep, [facility] [place] [facility] [address] [id number] [place] [address] Sep, [facility] [place] [facility] [address] [id number] [place] [address] Sep, [facility] [place] [facility] [address] [id number] [place] [address] Aug, [facility] [place] [facility] [address] [id number] [place] [address] Aug, [facility] [place] [facility] [address] [id number] [place] [address] Aug, [facility] [place] [facility] [address] [id number] [place] [address] Aug, [facility] [place] [facility] [address] [id number] [place] [address] Jul, [facility] [place] [facility] [address] [id number] [place] [address] Jul, [facility] [place] [facility] [address] [id number] [place] [address] Jul, [facility] [place] [facility] [address] [id number] [place] [address] Jul, [facility] [place] [facility] [address] [id number] [place] [address] Jul, [facility] [place] [facility] [address] [id number] [place] [address] Jul, [facility] [place] [facility] [address] [id number] [place] [address] Apr, [facility] [place] [facility] [address] [id number] [place] [address] Apr, [facility] [place] [facility] [address] [id number], [place] [address] Apr, [facility] [place] [facility] [address] [id number] [place] [address] Apr, [facility] [place] [facility] [address] [id number] [place] [address] Apr, [facility] [place] [facility] [address] [id number], [place] [address] Apr, [facility] [place] [facility] [address] [id number], [place] [address] 18 Apr, 2013 [facility] [place] [facility] [address] [id number] [place] [address] 18 Apr, 2013 [facility] [place] [facility] [address] [id number], [place] [address] Apr, [facility] [place] [facility] [address] [id number] [place] [address] Apr, [facility] [place] [facility] [address] [id number] [place] [address] 16 Apr, 2012 [facility] [address] [id number] [place] [address] 16 Apr, 2012 [facility] [address] [id number] [place] [address] 16 Apr, 2012 [facility] [address] [id number] [place] [address] 16 Apr, 2012 [facility] [address] [id number] [place] [address] 18 Mar, 2013 [facility] [address] [id number] [place] [address] 17 Mar, 2013 [facility] [address] [id number] [place] [address] 16 Mar, 2013 [facility] [address] [id number] [place] [address] 13 Mar, 2013 [facility] [address] [id number] [place] [address] Feb, [facility] [address] [id number] [place] [address] Feb, [facility] [address] [id number] [place] [address] Jan, [facility] [address] [id number] [place] [address] Jan, [facility] [address] [id number] [place] [address] Jan, [facility] [place] [facility] [address] [id number] [place] [address] Jan, [facility] [place] [facility] [address] [id number] [place] [address] Jan, [facility] [address] [id number] [place] [address] 17 Jan, 2013 [facility] [place] [facility] [address] [id number] [place] [address] 05 Jan, 2013 [facility] [place] [facility] [address] [id number] [place] [address] Jan, [facility] [place] [facility] [address] [id number] [place] [address] Dec, [facility] [place] [facility] [address] [id number] [place] [address] Dec, [facility] [place] [facility] [address] [id number] [place] [address] Dec, [facility] [place] [facility] [address] [id number] [place] [address] Dec, [facility] [place] [facility] [address] [id number] [place] [address] Dec, [facility] [place] [facility] [address] [id number] [place] [address] Dec, [facility] [place] [facility] [address] [id number] [place] [address] Dec, [facility] [place] [facility] [address] [id number] [place] [address] Dec, [facility] [place] [facility] [address] [id number] [place] [address] Dec, [facility] [place] [facility] [address] [id number] [place] [address] November, [facility] [place] [facility] [address] [id number] [place] [address] Oct, [facility] [place] [facility] [address] [id number] [place] [address] Oct, [facility] [place] [facility] [address] [id number] [place] [address] Oct, [facility] [place] [facility] [address] [id number], [place] [address] Oct, [facility] [address] [id number] [place] [address] Oct, [facility] [address] [id number] [place] [address] Oct, [facility] [address] [id number] [place] [address] Aug, [facility] [address] [id number] [place] [address] Aug, [facility] [address] [id number] [place] [address] Jul, [facility] [address] [id number] [place] [address] Jul, [facility] [address] [id number] [place] [address] Jul, [facility] [address] [id number] [place] [address] Jul, [facility] [address] [facility] [id number] [place] [address] Jul, [facility] [address] [facility] [id number] [place] [address] Jul, [facility] [address] [id number] [place] [address] Jul, [facility] [address] [id number] [place] [address] Jun, [facility] [address] [id number] [place] [address] Jun, [facility] [address] [id number] [place] [address] Jun, [facility] [address] [id number] [place] [address] Jun, [facility] [place] [facility] [address] [id number] [place] [address] Jun, [facility] [place] [facility] [address] [id number] [place] [address] Apr, [facility] [place] [facility] [address] [id number] [place] [address] Apr, [facility] [place] [facility] [address] [id number] [place] [address] Apr, [facility] [place] [facility] [address] [id number] [place] [address] Mar, [facility] [place] [facility] [address] [id number] [place] [address] Feb, [facility] [place] [facility] [address] [id number] [place] [address] Jan, [facility] [place] [facility] [address] [id number] [place] [address] Jan, [facility] [place] [facility] [address] [id number] [place] [address] Dec, [facility] [place] [facility] [address] [id number] [place] [address] November, [facility] [place] [facility] [address] [id number] [place] [address] Oct, [facility] [place] [facility] [address] [id number] [place] [address] Sep, [facility] [place] [facility] [address] [id number] [place] [address] Sep, [facility] [place] [facility] [address] [id number] [place] [address] Aug, [facility] [place] [facility] [address] [id number] [place] [address] Aug, [facility] [place] [facility] [address] [id number] [place] [address] Aug, [facility] [address] [id number] [address] Jul, [facility] [id number] [place] [address] Jul, [facility] [id number], [place] [address] Jun, [facility] [id number] [place] [address] Jun, [facility] [address] [id number] [address] May, [facility] [id number] [place] [address] Apr, [facility] [address] [id number] [address] Apr, IMMUNIZATIONS No Known Immunizations SOCIAL HISTORY Never Assessed REASON FOR VISIT [facility] [place] VITAL SIGNS MEDICATIONS Unknown Medications RESULTS No Results PROCEDURES No Known procedures INSTRUCTIONS MEDICATIONS ADMINISTERED No Known Medications MEDICAL (GENERAL) HISTORY Type Description Date Medical History GERD Surgical History cholecystectomy 2013 Hospitalization History ED [facility]- Chest Pain 08/26/2017 Hospitalization History Hospital, UTI/Septic 02/20/18 Hospitalization History viral infection 03/07/18
--- OUTSIDE RECORDS SUMMARY | 2018-12-13 12:37 | XMS REPORT ---
Author Author Migration, Doctor Organization [facility] Address Unknown Phone Unavailable Care Team Providers Care Economic Historian Name Role Phone Migration, Doctor Unavailable Unavailable PROBLEMS Type Condition ICD9-CM Code UIS77-PD Code Onset Dates Condition Status SNOMED Code Problem Obsessive compulsive disorder F42 Active 791064367 Problem Major depressive disorder, recurrent episode, in partial remission F33.41 Active 30741819 Problem Major depression, recurrent F33.9 Active 61918606 Problem MR (mental retardation) F79 Active 760438688 Problem Morbid (severe) obesity due to excess calories E66.01 Active 41787725893870 Problem Coarse tremors G25.2 Active 65349243 Problem Altered mental status, unspecified altered mental status type R41.82 Active 412673704 Problem Developmental non-verbal 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 Active 365236726 Problem Dementia without behavioral disturbance, unspecified dementia type F03.90 Active 17974100 Problem Essential tremor G25.0 Active 122926887 Problem Moderate intellectual disabilities F71 Active 64464179 Problem Hyperlipidemia, unspecified hyperlipidemia type E78.5 Active 11652550 Problem Obsessive-compulsive disorder, unspecified F42.9 Active 229021163 Problem BMI 40.0-44.9, adult Z68.41 Active 946133296 Problem Urinary incontinence, nocturnal enuresis N39.44 Active 9272478 Problem Constipation, unspecified constipation type K59.00 Active 19375566 ALLERGIES No Information ENCOUNTERS Encounter Location Date Diagnosis [facility] [id number] [address] Oct, [facility] [address], [place] [address] Jul, Yeast dermatitis B37.2 [facility] [id number], [place] [address] Jun, Coarse tremors G25.2 ; Urinary incontinence, nocturnal enuresis N39.44 and Dementia without behavioral disturbance, unspecified dementia type F03.90 [address], [place] [address] Apr, [address] [id number] [place] [address] Apr, Dementia without behavioral disturbance, unspecified dementia type F03.90 [address] [place] [id number] [place] [address] Apr, [address] [place] [id number] [place] [address] Apr, [address] [id number] [place] [address] Apr, Moderate intellectual disabilities F71 ; Morbid (severe) obesity due to excess calories E66.01 ; Coarse tremors G25.2 ; Urinary incontinence, nocturnal enuresis N39.44 ; Dementia without behavioral disturbance, unspecified dementia type F03.90 and At risk for falls Z91.81 [address] [place] [id number] [place] [address] Apr, Constipation, unspecified constipation type K59.00 ; Urinary incontinence, nocturnal enuresis N39.44 ; MR (mental retardation) F79 and Obsessive- compulsive disorder, unspecified F42.9 [id number] [place] [address] Apr, [address] [place] [id number] [place] [address] Apr, Altered mental status, unspecified altered mental status type R41.82 ; Obsessive-compulsive disorder, unspecified F42.9 ; Developmental non-verbal 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 ; BMI 40.0-44.9, adult Z68.41 and Recurrent UTI N39.0 [address] [place] [id number] [place] [address] Mar, Altered mental status, unspecified altered mental status type R41.82 ; Tachycardia R00.0 ; Acute cystitis without hematuria N30.00 and Bacteremia R78.81 [address] [place] [address], [place] [address] Mar, [facility] [id number] [place] [address] Mar, [place] [id number] [place] [address] Feb, [facility] [id number] [place] [address] Feb, Dysuria R30.0 [address] [place] [id number] [place] [address] Feb, Dysuria R30.0 ; Acute cystitis without hematuria N30.00 and Tachycardia R00.0 [facility] [id number] [place] [address] Feb, Coarse tremors G25.2 and BMI 45.0-49.9, adult Z68.42 [address] [place] [id number] [place] [address] Jan, [place] [id number] [place] [address] Jan, Major depressive disorder, recurrent episode, in partial remission F33.41 [address] [id number] [place] [address] Dec, Hyperglycemia R73.9 ; Hyperlipidemia, unspecified hyperlipidemia type E78.5 ; Body mass index (BMI) of 40.0-44.9 in adult Z68.41 and MR (mental retardation) F79 [id number] [place] [address] November, Major depressive disorder, recurrent episode, in partial remission F33.41 ; Mental retardation F79 ; Obsessive compulsive disorder F42 and BMI 50.0-59.9, adult Z68.43 [address] [place] [id number] [place] [address] Oct, [facility] [id number], [place] [address] Jul, Acute nasopharyngitis J00 and Vomiting, intractability of vomiting not specified, presence of nausea not specified, unspecified vomiting type R11.10 [facility] [address], [place] [address] Jul, BMI 45.0-49.9, adult Z68.42 ; Major depressive disorder, recurrent episode, in partial remission F33.41 ; Mental retardation F79 and Obsessive compulsive disorder F42 [address] [place] [id number] [place] [address] Jul, High risk medication use Z79.899 [facility] [address] [place] [address] Jun, Morbid (severe) obesity due to excess calories E66.01 ; Body mass index (BMI) of 40.0-44.9 in adult Z68.41 ; Mental retardation F79 ; Elevated blood pressure reading R03.0 ; Screening for diabetes mellitus (DM) Z13.1 and Screening for lipid disorders Z13.220 [address] [place] [address] May, High risk medication use Z79.899 ; Major depressive disorder, recurrent episode, in partial remission F33.41 ; Mental retardation F79 and Obsessive compulsive disorder F42 [facility] [address], [place] [address] May, [facility] [id number], [place] [address] Apr, [facility] [address] [facility] [id number] [id number] Mar, [facility] [address] [facility] [id number] [address] Jan, Major depression, recurrent F33.9 ; Mental retardation F79 and Obsessive compulsive disorder F42 [facility] [address], [place] [address] November, Major depression, recurrent F33.9 and Obsessive compulsive disorder F42 [facility] [address], [place] [address] Sep, [facility] [id number] [address] Jun, Obsessive compulsive disorder F42 ; Mental retardation F79 and Major depressive disorder, recurrent episode, in partial remission F33.41 [facility] [address], [place] [address] Apr, [facility] [id number] [place] [address] Apr, Major depression, recurrent F33.9 ; Obsessive compulsive disorder F42 and Mental retardation F79 [facility] [id number] [place] [address] Jan, [facility] [address], [place] [address] Jan, Major depression, recurrent F33.9 ; Obsessive compulsive disorder F42 and Mental retardation F79 [facility] [address], [place] [address] Dec, [facility] [address], [place] [address] November, [facility] [address], [place] [address] November, [facility] [address], [place] [address] Oct, [facility] [address], [place] [address] Oct, Obsessive compulsive disorder F42 ; Major depression, recurrent F33.9 and Mental retardation F79 [facility] [id number] [place] [address] 16 Sep, 2015 [facility] [address], [place] [address] 17 Aug, 2015 [facility] [address], [place] [address] 15 Aug, 2015 [facility] [address], [place] [address] Aug, [facility] [id number] [place] [address] Jul, [facility] [address] [place] [address] Jul, [facility] [id number] [place] [address] Jul, [facility] [address] [place] [address] Jun, Obsessive compulsive disorder F42 ; Major depression, recurrent F33.9 and Mental retardation F79 [facility] [address], [place] [address] Jun, [facility] [address] [place] [address] Jun, [facility] [address], [place] [address] May, [facility] [address] [place] [address] 15 Apr, 2015 [facility] [address], [place] [address] 30 Mar, 2015 Generalized anxiety disorder 300.02 and Major depressive disorder, recurrent episode, mild 296.31 [facility] [address], [place] [address] 14 Mar, 2015 [facility] [address], [place] [address] Feb, [facility] [address] [id number] [place] [address] Jan, [facility] [address] [facility] [id number] [place] [address] Dec, Generalized anxiety disorder 300.02 and Depressive disorder, not elsewhere classified 311 [facility] [address] [facility] [id number] [place] [address] 14 Oct, 2014 [facility] [address] [facility] [id number] [place] [address] Oct, [facility] [address] [facility] [id number] [place] [address] Sep, [facility] [address] [facility] [id number] [place] [address] Sep, [facility] [id number] [place] [address], [place] [address] Jun, [facility] [id number] [place] [address] Jun, [facility] [id number] [place] [address] May, [facility] [id number] [place] [address] May, [facility] [id number], [place] [address] May, [facility] [address] [facility] [id number], [place] [address] Apr, [facility] [address] [facility] [id number] [place] [address] Apr, [facility] [address] [facility] [id number], [place] [address] Feb, [facility] [id number] [place] [address] Jan, [facility] [place] [facility] [address] [id number] [place] [address] Jan, [facility] [place] [facility] [address] [id number] [place] [address] Dec, [facility] [place] [facility] [address] [id number] [place] [address] Dec, [facility] [place] [facility] [address] [id number] [place] [address] Oct, [facility] [place] [facility] [address] [id number] [place] [address] Oct, [facility] [place] [facility] [address] [id number] [place] [address] Oct, [facility] [place] [facility] [address] [id number] [place] [address] Oct, [facility] [place] [facility] [address] [id number] [place] [address] Sep, [facility] [place] [facility] [address] [id number] [place] [address] Sep, [facility] [place] [facility] [address] [id number] [place] [address] Sep, [facility] [place] [facility] [address] [id number] [place] [address] Sep, [facility] [place] [facility] [address] [id number] [place] [address] Aug, [facility] [place] [facility] [address] [id number] [place] [address] Aug, [facility] [place] [facility] [address] [id number] [place] [address] Aug, [facility] [place] [facility] [address] [id number] [place] [address] Aug, [facility] [place] [facility] [address] [id number] [place] [address] Jul, [facility] [place] [facility] [address] [id number] [place] [address] Jul, [facility] [place] [facility] [address] [id number] [place] [address] Jul, [facility] [place] [facility] [address] [id number] [place] [address] Jul, [facility] [place] [facility] [address] [id number] [place] [address] Jul, [facility] [place] [facility] [address] [id number] [place] [address] Jul, [facility] [place] [facility] [address] [id number] [place] [address] Apr, [facility] [place] [facility] [address] [id number] [place] [address] Apr, [facility] [place] [facility] [address] [id number], [place] [address] Apr, [facility] [place] [facility] [address] [id number] [place] [address] Apr, [facility] [place] [facility] [address] [id number] [place] [address] Apr, [facility] [place] [facility] [address] [id number], [place] [address] Apr, [facility] [place] [facility] [address] [id number], [place] [address] 18 Apr, 2013 [facility] [place] [facility] [address] [id number] [place] [address] 18 Apr, 2013 [facility] [place] [facility] [address] [id number], [place] [address] Apr, [facility] [place] [facility] [address] [id number] [place] [address] Apr, [facility] [place] [facility] [address] [id number] [place] [address] 16 Apr, 2012 [facility] [address] [id number] [place] [address] 16 Apr, 2012 [facility] [address] [id number] [place] [address] 16 Apr, 2012 [facility] [address] [id number] [place] [address] 16 Apr, 2012 [facility] [address] [id number] [place] [address] 18 Mar, 2013 [facility] [address] [id number] [place] [address] 17 Mar, 2013 [facility] [address] [id number] [place] [address] 16 Mar, 2013 [facility] [address] [id number] [place] [address] 13 Mar, 2013 [facility] [address] [id number] [place] [address] Feb, [facility] [address] [id number] [place] [address] Feb, [facility] [address] [id number] [place] [address] Jan, [facility] [address] [id number] [place] [address] Jan, [facility] [address] [id number] [place] [address] Jan, [facility] [place] [facility] [address] [id number] [place] [address] Jan, [facility] [place] [facility] [address] [id number] [place] [address] Jan, [facility] [address] [id number] [place] [address] 17 Jan, 2013 [facility] [place] [facility] [address] [id number] [place] [address] 05 Jan, 2013 [facility] [place] [facility] [address] [id number] [place] [address] Jan, [facility] [place] [facility] [address] [id number] [place] [address] Dec, [facility] [place] [facility] [address] [id number] [place] [address] Dec, [facility] [place] [facility] [address] [id number] [place] [address] Dec, [facility] [place] [facility] [address] [id number] [place] [address] Dec, [facility] [place] [facility] [address] [id number] [place] [address] Dec, [facility] [place] [facility] [address] [id number] [place] [address] Dec, [facility] [place] [facility] [address] [id number] [place] [address] Dec, [facility] [place] [facility] [address] [id number] [place] [address] Dec, [facility] [place] [facility] [address] [id number] [place] [address] Dec, [facility] [place] [facility] [address] [id number] [place] [address] November, [facility] [place] [facility] [address] [id number] [place] [address] Oct, [facility] [place] [facility] [address] [id number] [place] [address] Oct, [facility] [place] [facility] [address] [id number] [place] [address] Oct, [facility] [place] [facility] [address] [id number], [place] [address] Oct, [facility] [address] [id number] [place] [address] Oct, [facility] [address] [id number] [place] [address] Oct, [facility] [address] [id number] [place] [address] Aug, [facility] [address] [id number] [place] [address] Aug, [facility] [address] [id number] [place] [address] Jul, [facility] [address] [id number] [place] [address] Jul, [facility] [address] [id number] [place] [address] Jul, [facility] [address] [id number] [place] [address] Jul, [facility] [address] [facility] [id number] [place] [address] Jul, [facility] [address] [facility] [id number] [place] [address] Jul, [facility] [address] [id number] [place] [address] Jul, [facility] [address] [id number] [place] [address] Jun, [facility] [address] [id number] [place] [address] Jun, [facility] [address] [id number] [place] [address] Jun, [facility] [address] [id number] [place] [address] Jun, [facility] [place] [facility] [address] [id number] [place] [address] Jun, [facility] [place] [facility] [address] [id number] [place] [address] Apr, [facility] [place] [facility] [address] [id number] [place] [address] Apr, [facility] [place] [facility] [address] [id number] [place] [address] Apr, [facility] [place] [facility] [address] [id number] [place] [address] Mar, [facility] [place] [facility] [address] [id number] [place] [address] Feb, [facility] [place] [facility] [address] [id number] [place] [address] Jan, [facility] [place] [facility] [address] [id number] [place] [address] Jan, [facility] [place] [facility] [address] [id number] [place] [address] Dec, [facility] [place] [facility] [address] [id number] [place] [address] November, [facility] [place] [facility] [address] [id number] [place] [address] Oct, [facility] [place] [facility] [address] [id number] [place] [address] Sep, [facility] [place] [facility] [address] [id number] [place] [address] Sep, [facility] [place] [facility] [address] [id number] [place] [address] Aug, [facility] [place] [facility] [address] [id number] [place] [address] Aug, [facility] [place] [facility] [address] [id number] [place] [address] Aug, [facility] [id number] [address] Jul, [facility] [id number] [place] [address] Jul, [facility] [id number] [address] Jun, [facility] [id number] [address] Jun, [facility] [address] [id number] [address] May, [facility] [id number] [place] [address] Apr, [facility] [address] [id number] [address] Apr, IMMUNIZATIONS No Known Immunizations SOCIAL HISTORY Never Assessed REASON FOR VISIT [facility] [place] PLAN OF CARE VITAL SIGNS MEDICATIONS Unknown Medications RESULTS No Results PROCEDURES No Known procedures INSTRUCTIONS MEDICATIONS ADMINISTERED No Known Medications MEDICAL (GENERAL) HISTORY Type Description Date Medical History GERD Surgical History cholecystectomy 2013 Hospitalization History ED [place]- Chest Pain 08/26/2017 Hospitalization History Hospital, UTI/Septic 02/20/18 Hospitalization History viral infection 03/07/18
--- OUTSIDE RECORDS SUMMARY | 2018-12-13 12:37 | XMS REPORT ---
Author Author Migration, Doctor Organization [facility] [place] [facility] Address Unknown Phone Unavailable Care Team Providers Care Clinical Technologist Name Role Phone Migration, Doctor Unavailable Unavailable PROBLEMS Type Condition ICD9-CM Code [id number] Code Onset Dates Condition Status SNOMED Code Problem Obsessive compulsive disorder F42 Active 985419435 Problem Major depressive disorder, recurrent episode, in partial remission F33.41 Active 14171050 Problem Major depression, recurrent F33.9 Active 95530093 Problem MR (mental retardation) F79 Active 958858233 Problem Morbid (severe) obesity due to excess calories E66.01 Active 60379419232497 Problem Coarse tremors G25.2 Active 56547892 Problem Altered mental status, unspecified altered mental status type R41.82 Active 748358462 Problem Developmental non-verbal 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 Active 409303447 Problem Dementia without behavioral disturbance, unspecified dementia type F03.90 Active 62340645 Problem Essential tremor G25.0 Active 492766514 Problem Moderate intellectual disabilities F71 Active 59474403 Problem Hyperlipidemia, unspecified hyperlipidemia type E78.5 Active 73970524 Problem Obsessive-compulsive disorder, unspecified F42.9 Active 839482097 Problem BMI 40.0-44.9, adult Z68.41 Active 785854781 Problem Urinary incontinence, nocturnal enuresis N39.44 Active 5579029 Problem Constipation, unspecified constipation type K59.00 Active 38795633 ALLERGIES No Information ENCOUNTERS Encounter Location Date Diagnosis [facility] [id number] [address] Oct, [facility] [address], [place] [address] Jul, Yeast dermatitis B37.2 [facility] [id number], [place] [address] Jun, Coarse tremors G25.2 ; Urinary incontinence, nocturnal enuresis N39.44 and Dementia without behavioral disturbance, unspecified dementia type F03.90 [address], [place] [address] Apr, [id number] [place] [address] Apr, Dementia without behavioral disturbance, unspecified dementia type F03.90 [address] [id number] [place] [address] Apr, [address] [id number] [place] [address] Apr, [address] [id number] [place] [address] Apr, Moderate intellectual disabilities F71 ; Morbid (severe) obesity due to excess calories E66.01 ; Coarse tremors G25.2 ; Urinary incontinence, nocturnal enuresis N39.44 ; Dementia without behavioral disturbance, unspecified dementia type F03.90 and At risk for falls Z91.81 [id number] [place] [address] Apr, Constipation, unspecified constipation type K59.00 ; Urinary incontinence, nocturnal enuresis N39.44 ; MR (mental retardation) F79 and Obsessive- compulsive disorder, unspecified F42.9 [id number] [place] [address] Apr, [id number] [place] [address] Apr, Altered mental status, unspecified altered mental status type R41.82 ; Obsessive-compulsive disorder, unspecified F42.9 ; Developmental non-verbal 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 ; BMI 40.0-44.9, adult Z68.41 and Recurrent UTI N39.0 [id number] [place] [address] Mar, Altered mental status, unspecified altered mental status type R41.82 ; Tachycardia R00.0 ; Acute cystitis without hematuria N30.00 and Bacteremia R78.81 [address], [place] [address] Mar, [facility] [id number] [place] [address] Mar, [address] [id number] [place] [address] Feb, [facility] [id number] [place] [address] Feb, Dysuria R30.0 [address] [id number] [place] [address] Feb, Dysuria R30.0 ; Acute cystitis without hematuria N30.00 and Tachycardia R00.0 [facility] [id number] [place] [address] Feb, Coarse tremors G25.2 and BMI 45.0-49.9, adult Z68.42 [address] [id number] [place] [address] Jan, [address] [id number] [place] [address] Jan, Major depressive disorder, recurrent episode, in partial remission F33.41 [id number] [place] [address] Dec, Hyperglycemia R73.9 ; Hyperlipidemia, unspecified hyperlipidemia type E78.5 ; Body mass index (BMI) of 40.0-44.9 in adult Z68.41 and MR (mental retardation) F79 [id number] [place] [address] November, Major depressive disorder, recurrent episode, in partial remission F33.41 ; Mental retardation F79 ; Obsessive compulsive disorder F42 and BMI 50.0-59.9, adult Z68.43 [id number] [place] [address] Oct, [facility] [id number], [place] [address] Jul, Acute nasopharyngitis J00 and Vomiting, intractability of vomiting not specified, presence of nausea not specified, unspecified vomiting type R11.10 [facility] [address], [place] [address] Jul, BMI 45.0-49.9, adult Z68.42 ; Major depressive disorder, recurrent episode, in partial remission F33.41 ; Mental retardation F79 and Obsessive compulsive disorder F42 [id number] [place] [address] Jul, High risk medication use Z79.899 [facility] [address] [place] [address] Jun, Morbid (severe) obesity due to excess calories E66.01 ; Body mass index (BMI) of 40.0-44.9 in adult Z68.41 ; Mental retardation F79 ; Elevated blood pressure reading R03.0 ; Screening for diabetes mellitus (DM) Z13.1 and Screening for lipid disorders Z13.220 [address] [place] [address] May, High risk medication use Z79.899 ; Major depressive disorder, recurrent episode, in partial remission F33.41 ; Mental retardation F79 and Obsessive compulsive disorder F42 [facility] [address], [place] [address] May, [facility] [id number], [place] [address] Apr, [facility] [address] [id number] [id number] Mar, [facility] [address] [facility] [id number] [address] Jan, Major depression, recurrent F33.9 ; Mental retardation F79 and Obsessive compulsive disorder F42 [facility] [address], [place] [address] November, Major depression, recurrent F33.9 and Obsessive compulsive disorder F42 [facility] [address], [place] [address] Sep, [facility] [id number] [address] Jun, Obsessive compulsive disorder F42 ; Mental retardation F79 and Major depressive disorder, recurrent episode, in partial remission F33.41 [facility] [address], [place] [address] Apr, [facility] [id number] [place] [address] Apr, Major depression, recurrent F33.9 ; Obsessive compulsive disorder F42 and Mental retardation F79 [facility] [id number] [place] [address] Jan, [facility] [address], [place] [address] Jan, Major depression, recurrent F33.9 ; Obsessive compulsive disorder F42 and Mental retardation F79 [facility] [address], [place] [address] Dec, [facility] [address], [place] [address] November, [facility] [address], [place] [address] November, [facility] [address], [place] [address] Oct, [facility] [address], [place] [address] Oct, Obsessive compulsive disorder F42 ; Major depression, recurrent F33.9 and Mental retardation F79 [facility] [id number] [place] [address] 16 Sep, 2015 [facility] [address], [place] [address] 17 Aug, 2015 [facility] [address], [place] [address] 15 Aug, 2015 [facility] [address], [place] [address] Aug, [facility] [id number] [place] [address] Jul, [facility] [id number] [place] [address] Jul, [facility] [id number] [place] [address] Jul, [facility] [id number] [place] [address] Jun, Obsessive compulsive disorder F42 ; Major depression, recurrent F33.9 and Mental retardation F79 [facility] [address], [place] [address] Jun, [facility] [id number] [place] [address] Jun, [facility] [address], [place] [address] May, [facility] [id number] [place] [address] 15 Apr, 2015 [facility] [address], [place] [address] 30 Mar, 2015 Generalized anxiety disorder 300.02 and Major depressive disorder, recurrent episode, mild 296.31 [facility] [address], [place] [address] 14 Mar, 2015 [facility] [address], [place] [address] Feb, [facility] [address] [id number] [place] [address] Jan, [facility] [address] [facility] [id number] [place] [address] Dec, Generalized anxiety disorder 300.02 and Depressive disorder, not elsewhere classified 311 [facility] [place] [address] [facility] [id number] [place] [address] 14 Oct, 2014 [facility] [address] [facility] [id number] [place] [address] Oct, [facility] [address] [facility] [id number] [place] [address] Sep, [facility] [address] [facility] [id number] [place] [address] Sep, [facility] [id number] [place] [address], [place] [address] Jun, [facility] [id number] [place] [address] Jun, [facility] [id number] [place] [address] May, [facility] [id number] [place] [address] May, [facility] [id number], [place] [address] May, [facility] [address] [facility] [id number], [place] [address] Apr, [facility] [address] [facility] [id number] [place] [address] Apr, [facility] [address] [facility] [id number] [address] Feb, [facility] [id number] [place] [address] Jan, [facility] [place] [facility] [address] [id number] [place] [address] Jan, [facility] [place] [facility] [address] [id number] [place] [address] Dec, [facility] [place] [facility] [address] [id number] [place] [address] Dec, [facility] [place] [facility] [address] [id number] [place] [address] Oct, [facility] [place] [facility] [address] [id number] [place] [address] Oct, [facility] [place] [facility] [address] [id number] [place] [address] Oct, [facility] [place] [facility] [address] [id number] [place] [address] Oct, [facility] [place] [facility] [address] [id number] [place] [address] Sep, [facility] [place] [facility] [address] [id number] [place] [address] Sep, [facility] [place] [facility] [address] [id number] [place] [address] Sep, [facility] [place] [facility] [address] [id number] [place] [address] Sep, [facility] [place] [facility] [address] [id number] [place] [address] Aug, [facility] [place] [facility] [address] [id number] [place] [address] Aug, [facility] [place] [facility] [address] [id number] [place] [address] Aug, [facility] [place] [facility] [address] [id number] [place] [address] Aug, [facility] [place] [facility] [address] [id number] [place] [address] Jul, [facility] [place] [facility] [address] [id number] [place] [address] Jul, [facility] [place] [facility] [address] [id number] [place] [address] Jul, [facility] [place] [facility] [address] [id number] [place] [address] Jul, [facility] [place] [facility] [address] [id number] [place] [address] Jul, [facility] [place] [facility] [address] [id number] [place] [address] Jul, [facility] [place] [facility] [address] [id number] [place] [address] Apr, [facility] [place] [facility] [address] [id number] [place] [address] Apr, [facility] [place] [facility] [address] [id number], [place] [address] Apr, [facility] [place] [facility] [address] [id number] [place] [address] Apr, [facility] [place] [facility] [address] [id number] [place] [address] Apr, [facility] [place] [facility] [address] [id number], [place] [address] Apr, [facility] [place] [facility] [address] [id number], [place] [address] 18 Apr, 2013 [facility] [place] [facility] [address] [id number] [place] [address] 18 Apr, 2013 [facility] [place] [facility] [address] [id number], [place] [address] Apr, [facility] [place] [facility] [address] [id number] [place] [address] Apr, [facility] [place] [facility] [address] [id number] [place] [address] 16 Apr, 2012 [facility] [address] [id number] [place] [address] 16 Apr, 2012 [facility] [address] [id number] [place] [address] 16 Apr, 2012 [facility] [address] [id number] [place] [address] 16 Apr, 2012 [facility] [address] [id number] [place] [address] 18 Mar, 2013 [facility] [address] [id number] [place] [address] 17 Mar, 2013 [facility] [address] [id number] [place] [address] 16 Mar, 2013 [facility] [address] [id number] [place] [address] 13 Mar, 2013 [facility] [address] [id number] [place] [address] Feb, [facility] [address] [id number] [place] [address] Feb, [facility] [address] [id number] [place] [address] Jan, [facility] [address] [id number] [place] [address] Jan, [facility] [address] [id number] [place] [address] Jan, [facility] [place] [facility] [address] [id number] [place] [address] Jan, [facility] [place] [facility] [address] [id number] [place] [address] Jan, [facility] [address] [id number] [place] [address] 17 Jan, 2013 [facility] [place] [facility] [address] [id number] [place] [address] 05 Jan, 2013 [facility] [place] [facility] [address] [id number] [place] [address] Jan, [facility] [place] [facility] [address] [id number] [place] [address] Dec, [facility] [place] [facility] [address] [id number] [place] [address] Dec, [facility] [place] [facility] [address] [id number] [place] [address] Dec, [facility] [place] [facility] [address] [id number] [place] [address] Dec, [facility] [place] [facility] [address] [id number] [place] [address] Dec, [facility] [place] [facility] [address] [id number] [place] [address] Dec, [facility] [place] [facility] [address] [id number] [place] [address] Dec, [facility] [place] [facility] [address] [id number] [place] [address] Dec, [facility] [place] [facility] [address] [id number] [place] [address] Dec, [facility] [place] [facility] [address] [id number] [place] [address] November, [facility] [place] [facility] [address] [id number] [place] [address] Oct, [facility] [place] [facility] [address] [id number] [place] [address] Oct, [facility] [place] [facility] [address] [id number] [place] [address] Oct, [facility] [place] [facility] [address] [id number], [place] [address] Oct, [facility] [address] [id number] [place] [address] Oct, [facility] [address] [id number] [place] [address] Oct, [facility] [address] [id number] [place] [address] Aug, [facility] [address] [id number] [place] [address] Aug, [facility] [address] [id number] [place] [address] Jul, [facility] [address] [id number] [place] [address] Jul, [facility] [address] [id number] [place] [address] Jul, [facility] [address] [id number] [place] [address] Jul, [facility] [address] [facility] [id number] [place] [address] Jul, [facility] [address] [facility] [id number] [place] [address] Jul, [facility] [address] [id number] [place] [address] Jul, [facility] [address] [id number] [place] [address] Jun, [facility] [address] [id number] [place] [address] Jun, [facility] [address] [id number] [place] [address] Jun, [facility] [address] [id number] [place] [address] Jun, [facility] [place] [facility] [address] [id number] [place] [address] Jun, [facility] [place] [facility] [address] [id number] [place] [address] Apr, [facility] [place] [facility] [address] [id number] [place] [address] Apr, [facility] [place] [facility] [address] [id number] [place] [address] Apr, [facility] [place] [facility] [address] [id number] [place] [address] Mar, [facility] [place] [facility] [address] [id number] [place] [address] Feb, [facility] [place] [facility] [address] [id number] [place] [address] Jan, [facility] [place] [facility] [address] [id number] [place] [address] Jan, [facility] [place] [facility] [address] [id number] [place] [address] Dec, [facility] [place] [facility] [address] [id number] [place] [address] November, [facility] [place] [facility] [address] [id number] [place] [address] Oct, [facility] [place] [facility] [address] [id number] [place] [address] Sep, [facility] [place] [facility] [address] [id number] [place] [address] Sep, [facility] [place] [facility] [address] [id number] [place] [address] Aug, [facility] [place] [facility] [address] [id number] [place] [address] Aug, [facility] [place] [facility] [address] [id number] [place] [address] Aug, [facility] [address] [id number] [address] Jul, [facility] [id number] [address] Jul, [facility] [id number] [address] Jun, [facility] [id number] [address] Jun, [facility] [address] [id number] [address] May, [facility] [id number] [address] Apr, [facility] [address] [id number] [address] Apr, IMMUNIZATIONS No Known Immunizations SOCIAL HISTORY Never Assessed REASON FOR VISIT [facility] PLAN OF CARE VITAL SIGNS MEDICATIONS Unknown Medications RESULTS No Results PROCEDURES No Known procedures INSTRUCTIONS MEDICATIONS ADMINISTERED No Known Medications MEDICAL (GENERAL) HISTORY Type Description Date Medical History GERD Surgical History cholecystectomy 2013 Hospitalization History ED [facility]- Chest Pain 08/26/2017 Hospitalization History Hospital, UTI/Septic 02/20/18 Hospitalization History viral infection 03/07/18
--- OUTSIDE RECORDS SUMMARY | 2018-12-13 12:38 | XMS REPORT ---
Author Author Migration, Doctor Organization [facility] Address Unknown Phone Unavailable Care Team Providers Care Cafeteria Monitor Name Role Phone Migration, Doctor Unavailable Unavailable PROBLEMS Type Condition ICD9-CM Code ITI19-WZ Code Onset Dates Condition Status SNOMED Code Problem Obsessive compulsive disorder F42 Active 464141675 Problem Major depressive disorder, recurrent episode, in partial remission F33.41 Active 76967528 Problem Major depression, recurrent F33.9 Active 56651195 Problem MR (mental retardation) F79 Active 537293974 Problem Morbid (severe) obesity due to excess calories E66.01 Active 63389765967219 Problem Coarse tremors G25.2 Active 88241207 Problem Altered mental status, unspecified altered mental status type R41.82 Active 541639379 Problem Developmental non-verbal 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 Active 537180935 Problem Dementia without behavioral disturbance, unspecified dementia type F03.90 Active 59133665 Problem Essential tremor G25.0 Active 763153037 Problem Moderate intellectual disabilities F71 Active 86003062 Problem Hyperlipidemia, unspecified hyperlipidemia type E78.5 Active 65018450 Problem Obsessive-compulsive disorder, unspecified F42.9 Active 354696607 Problem BMI 40.0-44.9, adult Z68.41 Active 664345349 Problem Urinary incontinence, nocturnal enuresis N39.44 Active 9313592 Problem Constipation, unspecified constipation type K59.00 Active 05503907 ALLERGIES No Information ENCOUNTERS Encounter Location Date Diagnosis [facility] [address] [facility] [id number] [address] Jul, Yeast dermatitis B37.2 [facility] [address] [address] Jun, Coarse tremors G25.2 ; Urinary incontinence, nocturnal enuresis N39.44 and Dementia without behavioral disturbance, unspecified dementia type F03.90 [facility] [address] [id number] [address] Apr, [place] [id number] [place] [address] Apr, Dementia without behavioral disturbance, unspecified dementia type F03.90 [place] [address] [place] [address] [id number] [place] [address] Apr, [place] [id number] [place] [address] Apr, [place] [address] [id number] [place] [address] Apr, Moderate intellectual disabilities F71 ; Morbid (severe) obesity due to excess calories E66.01 ; Coarse tremors G25.2 ; Urinary incontinence, nocturnal enuresis N39.44 ; Dementia without behavioral disturbance, unspecified dementia type F03.90 and At risk for falls Z91.81 [place] [id number] [place] [address] Apr, Constipation, unspecified constipation type K59.00 ; Urinary incontinence, nocturnal enuresis N39.44 ; MR (mental retardation) F79 and Obsessive- compulsive disorder, unspecified F42.9 [place] [id number] [place] [address] Apr, [place] [id number] [place] [address] Apr, Altered mental status, unspecified altered mental status type R41.82 ; Obsessive-compulsive disorder, unspecified F42.9 ; Developmental non-verbal 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 ; BMI 40.0-44.9, adult Z68.41 and Recurrent UTI N39.0 [place] [id number] [place] [address] Mar, Altered mental status, unspecified altered mental status type R41.82 ; Tachycardia R00.0 ; Acute cystitis without hematuria N30.00 and Bacteremia R78.81 [place] [id number] [place] [address] Mar, [place] [id number] [place] [address] Mar, [place] [id number] [place] [address] Feb, [place] [id number] [place] [address] Feb, Dysuria R30.0 [place] [id number] [place] [address] Feb, Dysuria R30.0 ; Acute cystitis without hematuria N30.00 and Tachycardia R00.0 [facility] [place] [id number] [place] [address] Feb, Coarse tremors G25.2 and BMI 45.0-49.9, adult Z68.42 [place] [id number] [place] [address] Jan, [place] [id number] [place] [address] Jan, Major depressive disorder, recurrent episode, in partial remission F33.41 [place] [id number] [place] [address] Dec, Hyperglycemia R73.9 ; Hyperlipidemia, unspecified hyperlipidemia type E78.5 ; Body mass index (BMI) of 40.0-44.9 in adult Z68.41 and MR (mental retardation) F79 [place] [id number] [place] [address] November, Major depressive disorder, recurrent episode, in partial remission F33.41 ; Mental retardation F79 ; Obsessive compulsive disorder F42 and BMI 50.0-59.9, adult Z68.43 [place] [id number] [place] [address] Oct, [facility] [id number] [place] [address] Jul, Acute nasopharyngitis J00 and Vomiting, intractability of vomiting not specified, presence of nausea not specified, unspecified vomiting type R11.10 [place] [address] [address] Jul, BMI 45.0-49.9, adult Z68.42 ; Major depressive disorder, recurrent episode, in partial remission F33.41 ; Mental retardation F79 and Obsessive compulsive disorder F42 [place] [id number] [place] [address] Jul, High risk medication use Z79.899 [place] [address] [place] [id number] [place] [address] Jun, Morbid (severe) obesity due to excess calories E66.01 ; Body mass index (BMI) of 40.0-44.9 in adult Z68.41 ; Mental retardation F79 ; Elevated blood pressure reading R03.0 ; Screening for diabetes mellitus (DM) Z13.1 and Screening for lipid disorders Z13.220 [place] [id number] [place] [address] May, High risk medication use Z79.899 ; Major depressive disorder, recurrent episode, in partial remission F33.41 ; Mental retardation F79 and Obsessive compulsive disorder F42 [address] [address] May, [place] [id number] [place] [address] Apr, [facility] [place] [address] [facility] [id number] [id number] Mar, [place] [id number] [place] [address] Jan, Major depression, recurrent F33.9 ; Mental retardation F79 and Obsessive compulsive disorder F42 [address] [place] [address] November, Major depression, recurrent F33.9 and Obsessive compulsive disorder F42 [facility] [address] [address] Sep, [facility] [id number] [place] [address] Jun, Obsessive compulsive disorder F42 ; Mental retardation F79 and Major depressive disorder, recurrent episode, in partial remission F33.41 [facility] [id number] [place] [address] Apr, [facility] [id number] [place] [address] Apr, Major depression, recurrent F33.9 ; Obsessive compulsive disorder F42 and Mental retardation F79 [facility] [address] [address] Jan, [facility] [id number] [place] [address] Jan, Major depression, recurrent F33.9 ; Obsessive compulsive disorder F42 and Mental retardation F79 [facility] [address] [place] [address] Dec, [facility] [address] [address] November, [facility] [address] [address] November, [facility] [id number] [address] Oct, [facility] [address] [address] Oct, Obsessive compulsive disorder F42 ; Major depression, recurrent F33.9 and Mental retardation F79 [facility] [address] [address] 16 Sep, 2015 [facility] [id number] [place] [address] 17 Aug, 2015 [facility] [address] [address] 15 Aug, 2015 [facility] [id number] [place] [address] Aug, [facility] [address] [place] [address] Jul, [facility] [id number] [place] [address] Jul, [facility] [id number] [place] [address] Jul, [facility] [id number] [place] [address] Jun, Obsessive compulsive disorder F42 ; Major depression, recurrent F33.9 and Mental retardation F79 [facility] [address] [place] [address] Jun, [facility] [address] [place] [address] Jun, [facility] [address] [place] [address] May, [facility] [address] [address] Apr, [facility] [id number] [place] [address] 30 Mar, 2015 Generalized anxiety disorder 300.02 and Major depressive disorder, recurrent episode, mild 296.31 [facility] [address] [address] 14 Mar, 2015 [facility] [address] [address] Feb, [facility] [address] [address] Jan, [facility] [address] [facility] [id number] [place] [address] 10 Dec, 2014 Generalized anxiety disorder 300.02 and Depressive disorder, not elsewhere classified 311 [facility] [address] [id number] [place] [address] 14 Oct, 2014 [facility] [address] [facility] [id number] [place] [address] Oct, [facility] [address] [facility] [id number] [place] [address] Sep, [facility] [address] [facility] [id number] [place] [address] Sep, [facility] [address] [facility] [id number] [place] [address] Jun, [facility] [id number] [place] [address] Jun, [facility] [id number] [place] [address] May, [facility] [id number] [place] [address] May, [facility] [id number] [place] [address] May, [facility] [id number] [address] Apr, [facility] [id number] [place] [address] Apr, [facility] [id number] [place] [address] Feb, [facility] [place] [facility] [address] [facility] [id number] [place] [address] Jan, [facility] [place] [facility] [id number] [place] [address] Jan, [facility] [place] [facility] [address] [id number] [place] [address] Dec, [facility] [place] [facility] [address] [id number] [place] [address] Dec, [facility] [place] [facility] [address] [id number] [place] [address] Oct, [facility] [place] [facility] [address] [id number] [place] [address] Oct, [facility] [place] [facility] [address] [id number] [place] [address] Oct, [facility] [place] [facility] [address] [id number] [place] [address] Oct, [facility] [place] [facility] [address] [id number] [place] [address] Sep, [facility] [place] [facility] [address] [id number] [place] [address] Sep, [facility] [place] [facility] [address] [id number] [place] [address] Sep, [facility] [place] [facility] [address] [id number] [place] [address] Sep, [facility] [place] [facility] [address] [id number] [place] [address] Aug, [facility] [place] [facility] [address] [id number] [place] [address] Aug, [facility] [place] [facility] [address] [id number] [place] [address] Aug, [facility] [place] [facility] [address] [id number] [place] [address] Aug, [facility] [place] [facility] [address] [id number] [place] [address] Jul, [facility] [place] [facility] [address] [id number] [place] [address] Jul, [facility] [place] [facility] [address] [id number] [place] [address] Jul, [facility] [place] [facility] [address] [id number] [place] [address] Jul, [facility] [place] [facility] [address] [id number] [place] [address] Jul, [facility] [place] [facility] [address] [id number] [place] [address] Jul, [facility] [place] [facility] [address] [id number] [place] [address] Apr, [facility] [place] [facility] [address] [id number] [place] [address] 29 Apr, 2013 [facility] [place] [facility] [address] [id number] [place] [address] Apr, [facility] [place] [facility] [address] [id number] [place] [address] 24 Apr, 2013 [facility] [place] [facility] [address] [id number] [place] [address] Apr, [facility] [place] [facility] [address] [id number] [place] [address] Apr, [facility] [place] [facility] [address] [id number] [address] 18 Apr, 2013 [facility] [place] [facility] [address] [id number] [place] [address] 18 Apr, 2013 [facility] [place] [facility] [address] [id number] [place] [address] 17 Apr, 2013 [facility] [place] [facility] [address] [id number] [address] 17 Apr, 2013 [facility] [place] [facility] [address] [id number] [address] 16 Apr, 2013 [facility] [place] [facility] [address] [id number] [place] [address] 16 Apr, 2013 [facility] [address] [id number] [place] [address] 16 Apr, 2013 [facility] [address] [id number] [place] [address] 16 Apr, 2013 [facility] [address] [id number] [place] [address] 18 Mar, 2013 [facility] [address] [id number] [place] [address] 17 Mar, 2013 [facility] [address] [id number] [place] [address] 16 Mar, 2013 [facility] [address] [id number] [place] [address] 13 Mar, 2013 [facility] [address] [id number] [place] [address] Feb, [facility] [address] [id number] [place] [address] Feb, [facility] [address] [id number] [place] [address] Jan, [facility] [address] [id number] [place] [address] Jan, [facility] [address] [id number] [place] [address] Jan, [facility] [address] [id number] [place] [address] Jan, [facility] [place] [facility] [address] [id number] [place] [address] Jan, [facility] [place] [facility] [address] [id number] [place] [address] Jan, [facility] [address] [id number] [place] [address] 05 Jan, 2013 [facility] [place] [facility] [address] [id number] [place] [address] Jan, [facility] [place] [facility] [address] [id number] [place] [address] Dec, [facility] [place] [facility] [address] [id number] [place] [address] Dec, [facility] [place] [facility] [address] [id number] [place] [address] Dec, [facility] [place] [facility] [address] [id number] [place] [address] Dec, [facility] [place] [facility] [address] [id number] [place] [address] Dec, [facility] [place] [facility] [address] [id number] [place] [address] Dec, [facility] [place] [facility] [address] [id number] [place] [address] Dec, [facility] [place] [facility] [address] [id number] [place] [address] Dec, [facility] [place] [facility] [address] [id number] [place] [address] Dec, [facility] [place] [facility] [address] [id number] [place] [address] November, [facility] [place] [facility] [address] [id number] [place] [address] 30 Oct, 2012 [facility] [place] [facility] [address] [id number] [place] [address] Oct, [facility] [place] [facility] [address] [id number] [place] [address] Oct, [facility] [place] [facility] [address] [id number] [place] [address] Oct, [facility] [place] [facility] [address] [id number] [address] Oct, [facility] [address] [id number] [place] [address] Oct, [facility] [address] [id number] [place] [address] Aug, [facility] [address] [id number] [place] [address] Aug, [facility] [address] [id number] [place] [address] Jul, [facility] [address] [id number] [place] [address] Jul, [facility] [address] [id number] [place] [address] Jul, [facility] [address] [id number] [place] [address] Jul, [facility] [address] [id number] [place] [address] Jul, [facility] [address] [id number] [place] [address] Jul, [facility] [address] [id number] [place] [address] Jul, [facility] [address] [id number] [place] [address] Jun, [facility] [address] [id number] [place] [address] Jun, [facility] [address] [id number] [place] [address] Jun, [facility] [address] [id number] [place] [address] Jun, [facility] [address] [id number] [place] [address] Jun, [facility] [place] [facility] [address] [id number] [place] [address] Apr, [facility] [place] [facility] [address] [id number] [place] [address] Apr, [facility] [place] [facility] [address] [id number] [place] [address] Apr, [facility] [place] [facility] [address] [id number] [place] [address] Mar, [facility] [place] [facility] [address] [id number] [place] [address] Feb, [facility] [place] [facility] [address] [id number] [place] [address] Jan, [facility] [place] [facility] [address] [id number] [place] [address] Jan, [facility] [place] [facility] [address] [id number] [place] [address] Dec, [facility] [place] [facility] [address] [id number] [place] [address] November, [facility] [place] [facility] [address] [id number] [place] [address] Oct, [facility] [place] [facility] [address] [id number] [place] [address] Sep, [facility] [place] [facility] [address] [id number] [place] [address] Sep, [facility] [place] [facility] [address] [id number] [place] [address] Aug, [facility] [place] [facility] [address] [id number] [place] [address] Aug, [facility] [place] [facility] [address] [id number] [place] [address] Aug, [facility] [place] [facility] [address] [id number] [address] Jul, [facility] [address] [facility] [id number] [address] Jul, [facility] [id number] [address] Jun, [facility] [address] [id number] [address] Jun, [facility] [id number] [address] May, [facility] [address] [id number] [address] Apr, [facility] [address] [id number] [address] Apr, IMMUNIZATIONS No Known Immunizations SOCIAL HISTORY Never Assessed REASON FOR VISIT EMR-[facility] PLAN OF CARE VITAL SIGNS MEDICATIONS No Known Medications RESULTS No Results PROCEDURES No Known procedures INSTRUCTIONS MEDICATIONS ADMINISTERED No Known Medications MEDICAL (GENERAL) HISTORY Type Description Date Medical History GERD Surgical History cholecystectomy 2013 Hospitalization History ED [place]- Chest Pain 08/26/2017 Hospitalization History Hospital, UTI/Septic 02/20/18 Hospitalization History viral infection 03/07/18
--- OUTSIDE RECORDS SUMMARY | 2018-12-13 12:38 | XMS REPORT ---
Author Author Migration, Doctor Organization [facility] Address Unknown Phone Unavailable Care Team Providers Care Director Of Alumni Relations Name Role Phone Migration, Doctor Unavailable Unavailable PROBLEMS Type Condition ICD9-CM Code [id number] Code Onset Dates Condition Status SNOMED Code Problem Obsessive compulsive disorder F42 Active 935732734 Problem Major depressive disorder, recurrent episode, in partial remission F33.41 Active 00196751 Problem Major depression, recurrent F33.9 Active 27729263 Problem MR (mental retardation) F79 Active 924574693 Problem Morbid (severe) obesity due to excess calories E66.01 Active 15925161588644 Problem Coarse tremors G25.2 Active 40290598 Problem Altered mental status, unspecified altered mental status type R41.82 Active 824550829 Problem Developmental non-verbal 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 Active 763065905 Problem Dementia without behavioral disturbance, unspecified dementia type F03.90 Active 55801422 Problem Essential tremor G25.0 Active 008237210 Problem Moderate intellectual disabilities F71 Active 92608668 Problem Hyperlipidemia, unspecified hyperlipidemia type E78.5 Active 46526082 Problem Obsessive-compulsive disorder, unspecified F42.9 Active 105341310 Problem BMI 40.0-44.9, adult Z68.41 Active 348792732 Problem Urinary incontinence, nocturnal enuresis N39.44 Active 6532524 Problem Constipation, unspecified constipation type K59.00 Active 59032602 ALLERGIES No Information ENCOUNTERS Encounter Location Date Diagnosis [facility] [address] [facility] [id number], [place] [address] Jul, Yeast dermatitis B37.2 [facility] [address], [place] [address] Jun, Coarse tremors G25.2 ; Urinary incontinence, nocturnal enuresis N39.44 and Dementia without behavioral disturbance, unspecified dementia type F03.90 [facility] [address] [id number], [place] [address] Apr, [place] [id number] [place] [address] Apr, Dementia without behavioral disturbance, unspecified dementia type F03.90 [place] [address] [id number] [place] [id number] Apr, [place] [id number] [place] [address] Apr, [place] [id number] [place] [address] Apr, Moderate intellectual disabilities F71 ; Morbid (severe) obesity due to excess calories E66.01 ; Coarse tremors G25.2 ; Urinary incontinence, nocturnal enuresis N39.44 ; Dementia without behavioral disturbance, unspecified dementia type F03.90 and At risk for falls Z91.81 [place] [id number] [place] [address] Apr, Constipation, unspecified constipation type K59.00 ; Urinary incontinence, nocturnal enuresis N39.44 ; MR (mental retardation) F79 and Obsessive- compulsive disorder, unspecified F42.9 [place] [id number] [place] [address] Apr, [place] [id number] [place] [address] Apr, Altered mental status, unspecified altered mental status type R41.82 ; Obsessive-compulsive disorder, unspecified F42.9 ; Developmental non-verbal 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 ; BMI 40.0-44.9, adult Z68.41 and Recurrent UTI N39.0 [place] [id number] [place] [address] Mar, Altered mental status, unspecified altered mental status type R41.82 ; Tachycardia R00.0 ; Acute cystitis without hematuria N30.00 and Bacteremia R78.81 [place] [id number] [place] [address] Mar, [place] [id number] [place] [address] Mar, [place] [id number] [place] [address] Feb, [place] [id number] [place] [address] Feb, Dysuria R30.0 [place] [id number] [place] [address] Feb, Dysuria R30.0 ; Acute cystitis without hematuria N30.00 and Tachycardia R00.0 [facility] [place] [id number] [place] [address] Feb, Coarse tremors G25.2 and BMI 45.0-49.9, adult Z68.42 [place] [id number] [place] [address] Jan, [place] [id number] [place] [address] Jan, Major depressive disorder, recurrent episode, in partial remission F33.41 [place] [id number] [place] [address] Dec, Hyperglycemia R73.9 ; Hyperlipidemia, unspecified hyperlipidemia type E78.5 ; Body mass index (BMI) of 40.0-44.9 in adult Z68.41 and MR (mental retardation) F79 [place] [id number] [place] [address] November, Major depressive disorder, recurrent episode, in partial remission F33.41 ; Mental retardation F79 ; Obsessive compulsive disorder F42 and BMI 50.0-59.9, adult Z68.43 [place] [id number] [place] [address] Oct, [facility] [id number] [place] [address] Jul, Acute nasopharyngitis J00 and Vomiting, intractability of vomiting not specified, presence of nausea not specified, unspecified vomiting type R11.10 [place] [address], [place] [address] Jul, BMI 45.0-49.9, adult Z68.42 ; Major depressive disorder, recurrent episode, in partial remission F33.41 ; Mental retardation F79 and Obsessive compulsive disorder F42 [place] [id number] [place] [address] Jul, High risk medication use Z79.899 [place] [id number] [place] [address] Jun, Morbid (severe) obesity due to excess calories E66.01 ; Body mass index (BMI) of 40.0-44.9 in adult Z68.41 ; Mental retardation F79 ; Elevated blood pressure reading R03.0 ; Screening for diabetes mellitus (DM) Z13.1 and Screening for lipid disorders Z13.220 [place] [id number] [place] [address] May, High risk medication use Z79.899 ; Major depressive disorder, recurrent episode, in partial remission F33.41 ; Mental retardation F79 and Obsessive compulsive disorder F42 [address], [place] [address] May, [place] [id number] [place] [address] Apr, [facility] [id number] [facility] [id number] [id number] Mar, [place] [id number] [place] [address] Jan, Major depression, recurrent F33.9 ; Mental retardation F79 and Obsessive compulsive disorder F42 [address] [place] [address] November, Major depression, recurrent F33.9 and Obsessive compulsive disorder F42 [facility] [address], [place] [address] Sep, [facility] [id number] [place] [address] Jun, Obsessive compulsive disorder F42 ; Mental retardation F79 and Major depressive disorder, recurrent episode, in partial remission F33.41 [facility] [id number] [place] [address] Apr, [facility] [id number] [place] [address] Apr, Major depression, recurrent F33.9 ; Obsessive compulsive disorder F42 and Mental retardation F79 [facility] [address], [place] [address] Jan, [facility] [id number] [place] [address] Jan, Major depression, recurrent F33.9 ; Obsessive compulsive disorder F42 and Mental retardation F79 [facility] [address] [place] [address] Dec, [facility] [address], [place] [address] November, [facility] [address], [place] [address] November, [facility] [id number], [place] [address] Oct, [facility] [address], [place] [address] Oct, Obsessive compulsive disorder F42 ; Major depression, recurrent F33.9 and Mental retardation F79 [facility] [address], [place] [address] 16 Sep, 2015 [facility] [id number] [place] [address] 17 Aug, 2015 [facility] [address], [place] [address] 15 Aug, 2015 [facility] [id number] [place] [address] Aug, [facility] [address] [place] [address] Jul, [facility] [id number] [place] [address] Jul, [facility] [address] [place] [address] Jul, [facility] [id number] [place] [address] Jun, Obsessive compulsive disorder F42 ; Major depression, recurrent F33.9 and Mental retardation F79 [facility] [address] [place] [address] Jun, [facility] [id number] [place] [address] Jun, [facility] [id number] [place] [address] May, [facility] [address], [place] [address] Apr, [facility] [id number] [place] [address] 30 Mar, 2015 Generalized anxiety disorder 300.02 and Major depressive disorder, recurrent episode, mild 296.31 [facility] [address], [place] [address] 14 Mar, 2015 [facility] [address], [place] [address] Feb, [facility] [address], [place] [address] Jan, [facility] [address] [facility] [id number] [place] [address] 10 Dec, 2014 Generalized anxiety disorder 300.02 and Depressive disorder, not elsewhere classified 311 [facility] [address] [id number] [place] [address] 14 Oct, 2014 [facility] [address] [facility] [id number] [place] [address] Oct, [facility] [address] [facility] [id number] [place] [address] Sep, [facility] [address] [facility] [id number] [place] [address] Sep, [facility] [address] [facility] [id number] [place] [address] Jun, [facility] [id number] [place] [address] Jun, [facility] [id number] [place] [address] May, [facility] [id number] [place] [address] May, [facility] [id number] [place] [address] May, [facility] [id number], [place] [address] Apr, [facility] [id number] [place] [address] Apr, [facility] [id number] [place] [address] Feb, [facility] [place] [facility] [address] [facility] [id number] [place] [address] Jan, [facility] [place] [facility] [id number] [place] [address] Jan, [facility] [place] [facility] [address] [id number] [place] [address] Dec, [facility] [place] [facility] [address] [id number] [place] [address] Dec, [facility] [place] [facility] [address] [id number] [place] [address] Oct, [facility] [place] [facility] [address] [id number] [place] [address] Oct, [facility] [place] [facility] [address] [id number] [place] [address] Oct, [facility] [place] [facility] [address] [id number] [place] [address] Oct, [facility] [place] [facility] [address] [id number] [place] [address] Sep, [facility] [place] [facility] [address] [id number] [place] [address] Sep, [facility] [place] [facility] [address] [id number] [place] [address] Sep, [facility] [place] [facility] [address] [id number] [place] [address] Sep, [facility] [place] [facility] [address] [id number] [place] [address] Aug, [facility] [place] [facility] [address] [id number] [place] [address] Aug, [facility] [place] [facility] [address] [id number] [place] [address] Aug, [facility] [place] [facility] [address] [id number] [place] [address] Aug, [facility] [place] [facility] [address] [id number] [place] [address] Jul, [facility] [place] [facility] [address] [id number] [place] [address] Jul, [facility] [place] [facility] [address] [id number] [place] [address] Jul, [facility] [place] [facility] [address] [id number] [place] [address] Jul, [facility] [place] [facility] [address] [id number] [place] [address] Jul, [facility] [place] [facility] [address] [id number] [place] [address] Jul, [facility] [place] [facility] [address] [id number] [place] [address] Apr, [facility] [place] [facility] [address] [id number] [place] [address] 29 Apr, 2013 [facility] [place] [facility] [address] [id number] [place] [address] Apr, [facility] [place] [facility] [address] [id number] [place] [address] 24 Apr, 2013 [facility] [place] [facility] [address] [id number] [place] [address] Apr, [facility] [place] [facility] [address] [id number] [place] [address] Apr, [facility] [place] [facility] [address] [id number], [place] [address] 18 Apr, 2013 [facility] [place] [facility] [address] [id number], [place] [address] 18 Apr, 2013 [facility] [place] [facility] [address] [id number] [place] [address] 17 Apr, 2013 [facility] [place] [facility] [address] [id number], [place] [address] 17 Apr, 2013 [facility] [place] [facility] [address] [id number], [place] [address] 16 Apr, 2013 [facility] [place] [facility] [address] [id number] [place] [address] 16 Apr, 2013 [facility] [address] [id number] [place] [address] 16 Apr, 2013 [facility] [address] [id number] [place] [address] 16 Apr, 2013 [facility] [address] [id number] [place] [address] 18 Mar, 2013 [facility] [address] [id number] [place] [address] 17 Mar, 2013 [facility] [address] [id number] [place] [address] 16 Mar, 2013 [facility] [address] [id number] [place] [address] 13 Mar, 2013 [facility] [address] [id number] [place] [address] Feb, [facility] [address] [id number] [place] [address] Feb, [facility] [address] [id number] [place] [address] Jan, [facility] [address] [id number] [place] [address] Jan, [facility] [address] [id number] [place] [address] Jan, [facility] [address] [id number] [place] [address] Jan, [facility] [place] [facility] [address] [id number] [place] [address] Jan, [facility] [place] [facility] [address] [id number] [place] [address] Jan, [facility] [address] [id number] [place] [address] 05 Jan, 2013 [facility] [place] [facility] [address] [id number] [place] [address] Jan, [facility] [place] [facility] [address] [id number] [place] [address] Dec, [facility] [place] [facility] [address] [id number] [place] [address] Dec, [facility] [place] [facility] [address] [id number] [place] [address] Dec, [facility] [place] [facility] [address] [id number] [place] [address] Dec, [facility] [place] [facility] [address] [id number] [place] [address] Dec, [facility] [place] [facility] [address] [id number] [place] [address] Dec, [facility] [place] [facility] [address] [id number] [place] [address] Dec, [facility] [place] [facility] [address] [id number] [place] [address] Dec, [facility] [place] [facility] [address] [id number] [place] [address] Dec, [facility] [place] [facility] [address] [id number] [place] [address] November, [facility] [place] [facility] [address] [id number] [place] [address] 30 Oct, 2012 [facility] [place] [facility] [address] [id number] [place] [address] Oct, [facility] [place] [facility] [address] [id number] [place] [address] Oct, [facility] [place] [facility] [address] [id number] [place] [address] Oct, [facility] [place] [facility] [address] [id number], [place] [address] Oct, [facility] [address] [id number] [place] [address] Oct, [facility] [address] [id number] [place] [address] Aug, [facility] [address] [id number] [place] [address] Aug, [facility] [address] [id number] [place] [address] Jul, [facility] [address] [id number] [place] [address] Jul, [facility] [address] [id number] [place] [address] Jul, [facility] [address] [id number] [place] [address] Jul, [facility] [address] [id number] [place] [address] Jul, [facility] [address] [id number] [place] [address] Jul, [facility] [address] [id number] [place] [address] Jul, [facility] [address] [id number] [place] [address] Jun, [facility] [address] [id number] [place] [address] Jun, [facility] [address] [id number] [place] [address] Jun, [facility] [address] [id number] [place] [address] Jun, [facility] [address] [id number] [place] [address] Jun, [facility] [place] [facility] [address] [id number] [place] [address] Apr, [facility] [place] [facility] [address] [id number] [place] [address] Apr, [facility] [place] [facility] [address] [id number] [place] [address] Apr, [facility] [place] [facility] [address] [id number] [place] [address] Mar, [facility] [place] [facility] [address] [id number] [place] [address] Feb, [facility] [place] [facility] [address] [id number] [place] [address] Jan, [facility] [place] [facility] [address] [id number] [place] [address] Jan, [facility] [place] [facility] [address] [id number] [place] [address] Dec, [facility] [place] [facility] [address] [id number] [place] [address] November, [facility] [place] [facility] [address] [id number] [place] [address] Oct, [facility] [place] [facility] [address] [id number] [place] [address] Sep, [facility] [place] [facility] [address] [id number] [place] [address] Sep, [facility] [place] [facility] [address] [id number] [place] [address] Aug, [facility] [place] [facility] [address] [id number] [place] [address] Aug, [facility] [place] [facility] [address] [id number] [place] [address] Aug, [facility] [place] [facility] [address] [id number], [place] [address] Jul, [facility] [address] [facility] [id number], [place] [address] Jul, [facility] [id number], [place] [address] Jun, [facility] [address] [id number], [place] [address] Jun, [facility] [id number], [place] [address] May, [facility] [address] [id number], [place] [address] Apr, [facility] [address] [id number], [place] [address] Apr, IMMUNIZATIONS No Known Immunizations SOCIAL HISTORY Never Assessed REASON FOR VISIT EMR-[facility] PLAN OF CARE VITAL SIGNS MEDICATIONS No Known Medications RESULTS No Results PROCEDURES No Known procedures INSTRUCTIONS MEDICATIONS ADMINISTERED No Known Medications MEDICAL (GENERAL) HISTORY Type Description Date Medical History GERD Surgical History cholecystectomy 2013 Hospitalization History ED [place]- Chest Pain 08/26/2017 Hospitalization History Hospital, UTI/Septic 02/20/18 Hospitalization History viral infection 03/07/18
[2018-12-13 12:39] LABS: BASOPHILS # (AUTO) 0.1 10^3/uL (0.0-0.1); BASOPHILS % (AUTO) 1 % (0-10); EOSINOPHILS # (AUTO) 0.1 10^3/uL (0.0-0.3); EOSINOPHILS % (AUTO) 1 % (0-10); HEMATOCRIT 47 % (40-54); HEMOGLOBIN 15.7 G/DL (13.3-17.7); LYMPHOCYTES # (AUTO) 0.8 X 10^3 (1.0-4.0); LYMPHOCYTES % (AUTO) 12 % (12-44); MEAN CORPUSCULAR HEMOGLOBIN 27 PG (25-34); MEAN CORPUSCULAR HGB CONC 34 G/DL (32-36); MEAN CORPUSCULAR VOLUME 82 FL (80-99); MEAN PLATELET VOLUME 10.1 FL (7.4-10.4); MONOCYTES # (AUTO) 0.5 X 10^3 (0.0-1.0); MONOCYTES % (AUTO) 8 % (0-12); NEUTROPHILS # (AUTO) 5.3 X 10^3 (1.8-7.8); NEUTROPHILS % (AUTO) 79 % (42-75); PLATELET COUNT 315 10^3/uL (130-400); RED CELL DISTRIBUTION WIDTH 12.9 % (10.0-14.5); WHITE BLOOD COUNT 6.7 10^3/uL (4.3-11.0)
--- OUTSIDE RECORDS SUMMARY | 2018-12-13 12:39 | XMS REPORT ---
Author Author Migration, Doctor Organization [facility] Address Unknown Phone Unavailable Care Team Providers Care Hand Cementer Name Role Phone Migration, Doctor Unavailable Unavailable PROBLEMS Type Condition ICD9-CM Code [id number] Code Onset Dates Condition Status SNOMED Code Problem Obsessive compulsive disorder F42 Active 417555453 Problem Major depressive disorder, recurrent episode, in partial remission F33.41 Active 74123134 Problem Major depression, recurrent F33.9 Active 37047584 Problem MR (mental retardation) F79 Active 772117756 Problem Morbid (severe) obesity due to excess calories E66.01 Active 15341137092571 Problem Coarse tremors G25.2 Active 23306686 Problem Altered mental status, unspecified altered mental status type R41.82 Active 106938815 Problem Developmental non-verbal 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 Active 784641680 Problem Dementia without behavioral disturbance, unspecified dementia type F03.90 Active 88426988 Problem Essential tremor G25.0 Active 564322899 Problem Moderate intellectual disabilities F71 Active 49897941 Problem Hyperlipidemia, unspecified hyperlipidemia type E78.5 Active 39085487 Problem Obsessive-compulsive disorder, unspecified F42.9 Active 889876590 Problem BMI 40.0-44.9, adult Z68.41 Active 855460654 Problem Urinary incontinence, nocturnal enuresis N39.44 Active 0042179 Problem Constipation, unspecified constipation type K59.00 Active 93735116 ALLERGIES No Information ENCOUNTERS Encounter Location Date Diagnosis [facility] [address] [facility] [id number] [address] Jul, Yeast dermatitis B37.2 [facility] [address] [address] Jun, Coarse tremors G25.2 ; Urinary incontinence, nocturnal enuresis N39.44 and Dementia without behavioral disturbance, unspecified dementia type F03.90 [facility] [id number] [address] Apr, [place] [id number] [place] [address] Apr, Dementia without behavioral disturbance, unspecified dementia type F03.90 [place] [address] [place] [id number] [place] [address] Apr, [place] [id number] [place] [address] Apr, [place] [id number] [place] [address] Apr, Moderate intellectual disabilities F71 ; Morbid (severe) obesity due to excess calories E66.01 ; Coarse tremors G25.2 ; Urinary incontinence, nocturnal enuresis N39.44 ; Dementia without behavioral disturbance, unspecified dementia type F03.90 and At risk for falls Z91.81 [place] [id number] [place] [address] Apr, Constipation, unspecified constipation type K59.00 ; Urinary incontinence, nocturnal enuresis N39.44 ; MR (mental retardation) F79 and Obsessive- compulsive disorder, unspecified F42.9 [place] [id number] [place] [address] Apr, [place] [id number] [place] [address] Apr, Altered mental status, unspecified altered mental status type R41.82 ; Obsessive-compulsive disorder, unspecified F42.9 ; Developmental non-verbal 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 ; BMI 40.0-44.9, adult Z68.41 and Recurrent UTI N39.0 [place] [id number] [place] [address] Mar, Altered mental status, unspecified altered mental status type R41.82 ; Tachycardia R00.0 ; Acute cystitis without hematuria N30.00 and Bacteremia R78.81 [place] [id number] [place] [address] Mar, [place] [address] [place] [address] Mar, [place] [id number] [place] [address] Feb, [place] [id number] [place] [address] Feb, Dysuria R30.0 [place] [id number] [place] [address] Feb, Dysuria R30.0 ; Acute cystitis without hematuria N30.00 and Tachycardia R00.0 [facility] [place] [id number] [place] [address] Feb, Coarse tremors G25.2 and BMI 45.0-49.9, adult Z68.42 [place] [id number] [place] [address] Jan, [place] [id number] [place] [address] Jan, Major depressive disorder, recurrent episode, in partial remission F33.41 [place] [id number] [place] [address] Dec, Hyperglycemia R73.9 ; Hyperlipidemia, unspecified hyperlipidemia type E78.5 ; Body mass index (BMI) of 40.0-44.9 in adult Z68.41 and MR (mental retardation) F79 [place] [id number] [place] [address] November, Major depressive disorder, recurrent episode, in partial remission F33.41 ; Mental retardation F79 ; Obsessive compulsive disorder F42 and BMI 50.0-59.9, adult Z68.43 [place] [id number] [place] [address] Oct, [facility] [id number] [place] [address] Jul, Acute nasopharyngitis J00 and Vomiting, intractability of vomiting not specified, presence of nausea not specified, unspecified vomiting type R11.10 [place] [address] [address] Jul, BMI 45.0-49.9, adult Z68.42 ; Major depressive disorder, recurrent episode, in partial remission F33.41 ; Mental retardation F79 and Obsessive compulsive disorder F42 [place] [id number] [place] [address] Jul, High risk medication use Z79.899 [place] [id number] [place] [address] Jun, Morbid (severe) obesity due to excess calories E66.01 ; Body mass index (BMI) of 40.0-44.9 in adult Z68.41 ; Mental retardation F79 ; Elevated blood pressure reading R03.0 ; Screening for diabetes mellitus (DM) Z13.1 and Screening for lipid disorders Z13.220 [place] [id number] [place] [address] May, High risk medication use Z79.899 ; Major depressive disorder, recurrent episode, in partial remission F33.41 ; Mental retardation F79 and Obsessive compulsive disorder F42 [address] [address] May, [place] [id number] [place] [address] Apr, [facility] [place] [address] [facility] [id number] [id number] Mar, [place] [id number] [place] [address] Jan, Major depression, recurrent F33.9 ; Mental retardation F79 and Obsessive compulsive disorder F42 [address] [place] [address] November, Major depression, recurrent F33.9 and Obsessive compulsive disorder F42 [facility] [address] [address] Sep, [facility] [id number] [place] [address] Jun, Obsessive compulsive disorder F42 ; Mental retardation F79 and Major depressive disorder, recurrent episode, in partial remission F33.41 [facility] [id number] [place] [address] Apr, [facility] [id number] [place] [address] Apr, Major depression, recurrent F33.9 ; Obsessive compulsive disorder F42 and Mental retardation F79 [facility] [address] [address] Jan, [facility] [id number] [place] [address] Jan, Major depression, recurrent F33.9 ; Obsessive compulsive disorder F42 and Mental retardation F79 [facility] [address] [place] [address] Dec, [facility] [address] [address] November, [facility] [address] [address] November, [facility] [id number] [address] Oct, [facility] [address] [address] Oct, Obsessive compulsive disorder F42 ; Major depression, recurrent F33.9 and Mental retardation F79 [facility] [address] [address] 16 Sep, 2015 [facility] [id number] [place] [address] 17 Aug, 2015 [facility] [address] [address] 15 Aug, 2015 [facility] [address] [place] [address] Aug, [facility] [address] [place] [address] Jul, [facility] [id number] [place] [address] Jul, [facility] [address] [place] [address] Jul, [facility] [id number] [place] [address] Jun, Obsessive compulsive disorder F42 ; Major depression, recurrent F33.9 and Mental retardation F79 [facility] [address] [place] [address] Jun, [facility] [address] [place] [address] Jun, [facility] [address] [place] [address] May, [facility] [address], [place] [address] Apr, [facility] [id number] [place] [address] 30 Mar, 2015 Generalized anxiety disorder 300.02 and Major depressive disorder, recurrent episode, mild 296.31 [facility] [address] [address] 14 Mar, 2015 [facility] [address] [address] Feb, [facility] [address] [address] Jan, [facility] [address] [facility] [place] [id number] [place] [address] 10 Dec, 2014 Generalized anxiety disorder 300.02 and Depressive disorder, not elsewhere classified 311 [facility] [address] [id number] [place] [address] 14 Oct, 2014 [facility] [address] [facility] [place] [id number] [place] [address] Oct, [facility] [address] [facility] [place] [id number] [place] [address] Sep, [facility] [address] [facility] [place] [id number] [place] [address] Sep, [facility] [address] [facility] [place] [id number] [place] [address] Jun, [facility] [address] [place] [address] Jun, [facility] [id number] [place] [address] May, [facility] [id number] [place] [address] May, [facility] [id number] [place] [address] May, [facility] [id number] [address] Apr, [facility] [id number] [place] [address] Apr, [facility] [id number] [place] [address] Feb, [facility] [place] [facility] [address] [facility] [place] [id number] [place] [address] Jan, [facility] [place] [facility] [id number] [place] [address] Jan, [facility] [place] [facility] [address] [id number] [place] [address] Dec, [facility] [place] [facility] [address] [id number] [place] [address] Dec, [facility] [place] [facility] [address] [id number] [place] [address] Oct, [facility] [place] [facility] [address] [id number] [place] [address] Oct, [facility] [place] [facility] [address] [id number] [place] [address] Oct, [facility] [place] [facility] [address] [id number] [place] [address] Oct, [facility] [place] [facility] [address] [id number] [place] [address] Sep, [facility] [place] [facility] [address] [id number] [place] [address] Sep, [facility] [place] [facility] [address] [id number] [place] [address] Sep, [facility] [place] [facility] [address] [id number] [place] [address] Sep, [facility] [place] [facility] [address] [id number] [place] [address] Aug, [facility] [place] [facility] [address] [id number] [place] [address] Aug, [facility] [place] [facility] [address] [id number] [place] [address] Aug, [facility] [place] [facility] [address] [id number] [place] [address] Aug, [facility] [place] [facility] [address] [id number] [place] [address] Jul, [facility] [place] [facility] [address] [id number] [place] [address] Jul, [facility] [place] [facility] [address] [id number] [place] [address] Jul, [facility] [place] [facility] [address] [id number] [place] [address] Jul, [facility] [place] [facility] [address] [id number] [place] [address] Jul, [facility] [place] [facility] [address] [id number] [place] [address] Jul, [facility] [place] [facility] [address] [id number] [place] [address] Apr, [facility] [place] [facility] [address] [id number] [place] [address] 29 Apr, 2013 [facility] [place] [facility] [address] [id number] [place] [address] Apr, [facility] [place] [facility] [address] [id number] [place] [address] 24 Apr, 2013 [facility] [place] [facility] [address] [id number] [place] [address] Apr, [facility] [place] [facility] [address] [id number] [place] [address] Apr, [facility] [place] [facility] [address] [id number], [place] [address] 18 Apr, 2013 [facility] [place] [facility] [address] [id number], [place] [address] 18 Apr, 2013 [facility] [place] [facility] [address] [id number] [place] [address] 17 Apr, 2013 [facility] [place] [facility] [address] [id number], [place] [address] 17 Apr, 2013 [facility] [place] [facility] [address] [id number], [place] [address] 16 Apr, 2013 [facility] [place] [facility] [address] [id number] [place] [address] 16 Apr, 2013 [facility] [address] [id number] [place] [address] 16 Apr, 2013 [facility] [address] [id number] [place] [address] 16 Apr, 2013 [facility] [address] [id number] [place] [address] 18 Mar, 2013 [facility] [address] [id number] [place] [address] 17 Mar, 2013 [facility] [address] [id number] [place] [address] 16 Mar, 2013 [facility] [address] [id number] [place] [address] 13 Mar, 2013 [facility] [address] [id number] [place] [address] Feb, [facility] [address] [id number] [place] [address] Feb, [facility] [address] [id number] [place] [address] Jan, [facility] [address] [id number] [place] [address] Jan, [facility] [address] [id number] [place] [address] Jan, [facility] [address] [id number] [place] [address] Jan, [facility] [place] [facility] [address] [id number] [place] [address] Jan, [facility] [place] [facility] [address] [id number] [place] [address] Jan, [facility] [address] [id number] [place] [address] 05 Jan, 2013 [facility] [place] [facility] [address] [id number] [place] [address] Jan, [facility] [place] [facility] [address] [id number] [place] [address] Dec, [facility] [place] [facility] [address] [id number] [place] [address] Dec, [facility] [place] [facility] [address] [id number] [place] [address] Dec, [facility] [place] [facility] [address] [id number] [place] [address] Dec, [facility] [place] [facility] [address] [id number] [place] [address] Dec, [facility] [place] [facility] [address] [id number] [place] [address] Dec, [facility] [place] [facility] [address] [id number] [place] [address] Dec, [facility] [place] [facility] [address] [id number] [place] [address] Dec, [facility] [place] [facility] [address] [id number] [place] [address] Dec, [facility] [place] [facility] [address] [id number] [place] [address] November, [facility] [place] [facility] [address] [id number] [place] [address] 30 Oct, 2012 [facility] [place] [facility] [address] [id number] [place] [address] Oct, [facility] [place] [facility] [address] [id number] [place] [address] Oct, [facility] [place] [facility] [address] [id number] [place] [address] Oct, [facility] [place] [facility] [address] [id number], [place] [address] Oct, [facility] [address] [id number] [place] [address] Oct, [facility] [address] [id number] [place] [address] Aug, [facility] [address] [id number] [place] [address] Aug, [facility] [address] [id number] [place] [address] Jul, [facility] [address] [id number] [place] [address] Jul, [facility] [address] [id number] [place] [address] Jul, [facility] [address] [id number] [place] [address] Jul, [facility] [address] [id number] [place] [address] Jul, [facility] [address] [id number] [place] [address] Jul, [facility] [address] [id number] [place] [address] Jul, [facility] [address] [id number] [place] [address] Jun, [facility] [address] [id number] [place] [address] Jun, [facility] [address] [id number] [place] [address] Jun, [facility] [address] [id number] [place] [address] Jun, [facility] [address] [id number] [place] [address] Jun, [facility] [place] [facility] [address] [id number] [place] [address] Apr, [facility] [place] [facility] [address] [id number] [place] [address] Apr, [facility] [place] [facility] [address] [id number] [place] [address] Apr, [facility] [place] [facility] [address] [id number] [place] [address] Mar, [facility] [place] [facility] [address] [id number] [place] [address] Feb, [facility] [place] [facility] [address] [id number] [place] [address] Jan, [facility] [place] [facility] [address] [id number] [place] [address] Jan, [facility] [place] [facility] [address] [id number] [place] [address] Dec, [facility] [place] [facility] [address] [id number] [place] [address] November, [facility] [place] [facility] [address] [id number] [place] [address] Oct, [facility] [place] [facility] [address] [id number] [place] [address] Sep, [facility] [place] [facility] [address] [id number] [place] [address] Sep, [facility] [place] [facility] [address] [id number] [place] [address] Aug, [facility] [place] [facility] [address] [id number] [place] [address] Aug, [facility] [place] [facility] [address] [id number] [place] [address] Aug, [facility] [place] [facility] [address] [id number], [place] [address] Jul, [facility] [address] [facility] [id number][place] [address] Jul, [facility] [address] [facility] [place] [id number], [place] [address] Jun, [facility] [address] [facility] [place] [id number], [place] [address] Jun, [facility] [address] [facility] [place] [id number], [place] [address] May, [facility] [address] [facility] [place] [id number], [place] [address] Apr, [facility] [address] [facility] [place] [id number], [place] [address] Apr, IMMUNIZATIONS No Known Immunizations SOCIAL HISTORY Never Assessed REASON FOR VISIT EMR-[facility] [place]AN OF CARE VITAL SIGNS MEDICATIONS Medication Instructions Dosage Frequency Start Date End Date Duration Status propranolol 20 mg 1 Tablet by Oral route 2 times per day Dec, Active PredniSONE 20 mg 2 tablet by Oral route 1 time per day for 5 day(s) Jul, Active Singulair 1 Tablet by Oral route 1 time per day Jun, Active Zoloft 100 mg 1.5 tablet by Oral route 1 time per day Take at HS Sep, Active Clonazepam 0.5 mg take 1 tablet by Oral route 2 times per day PRN anxiety Sep, Active Amoxicillin 500 mg take 1 capsule (500 mg) by oral route every 8 hours for 10 days Aug, Active Latuda 40 mg take 1 tablet (40 mg) by oral route once daily with food (at least 350 calories) with evening meal Sep, Active Ventolin HFA by inhalation route Jun, Active RESULTS No Results PROCEDURES No Known procedures INSTRUCTIONS MEDICATIONS ADMINISTERED No Known Medications MEDICAL (GENERAL) HISTORY Type Description Date Medical History GERD Surgical History cholecystectomy 2013 Hospitalization History ED [facility]- Chest Pain 08/26/2017 Hospitalization History Hospital, UTI/Septic 02/20/18 Hospitalization History viral infection 03/07/18
--- OUTSIDE RECORDS SUMMARY | 2018-12-13 12:39 | XMS REPORT ---
Author Author Migration, Doctor Organization [facility] Address Unknown Phone Unavailable Care Team Providers Care Bottom Cager Name Role Phone Migration, Doctor Unavailable Unavailable PROBLEMS Type Condition ICD9-CM Code [id number] Code Onset Dates Condition Status SNOMED Code Problem Obsessive compulsive disorder F42 Active 785055515 Problem Major depressive disorder, recurrent episode, in partial remission F33.41 Active 86210645 Problem Major depression, recurrent F33.9 Active 97890352 Problem MR (mental retardation) F79 Active 934220968 Problem Morbid (severe) obesity due to excess calories E66.01 Active 43270931066552 Problem Coarse tremors G25.2 Active 96002483 Problem Altered mental status, unspecified altered mental status type R41.82 Active 292098875 Problem Developmental non-verbal 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 Active 146347983 Problem Dementia without behavioral disturbance, unspecified dementia type F03.90 Active 20160282 Problem Essential tremor G25.0 Active 080616991 Problem Moderate intellectual disabilities F71 Active 00573495 Problem Hyperlipidemia, unspecified hyperlipidemia type E78.5 Active 50233661 Problem Obsessive-compulsive disorder, unspecified F42.9 Active 898169243 Problem BMI 40.0-44.9, adult Z68.41 Active 550648973 Problem Urinary incontinence, nocturnal enuresis N39.44 Active 2047741 Problem Constipation, unspecified constipation type K59.00 Active 83497070 ALLERGIES No Information ENCOUNTERS Encounter Location Date Diagnosis [facility] [address] [facility] [id number] [address] Jul, Yeast dermatitis B37.2 [facility] [address] [address] Jun, Coarse tremors G25.2 ; Urinary incontinence, nocturnal enuresis N39.44 and Dementia without behavioral disturbance, unspecified dementia type F03.90 [facility] [id number] [address] Apr, [place] [id number] [place] [address] Apr, Dementia without behavioral disturbance, unspecified dementia type F03.90 [place] [id number] [place] [address] Apr, [place] [id number] [place] [address] Apr, [place] [id number] [place] [address] Apr, Moderate intellectual disabilities F71 ; Morbid (severe) obesity due to excess calories E66.01 ; Coarse tremors G25.2 ; Urinary incontinence, nocturnal enuresis N39.44 ; Dementia without behavioral disturbance, unspecified dementia type F03.90 and At risk for falls Z91.81 [place] [id number] [place] [address] Apr, Constipation, unspecified constipation type K59.00 ; Urinary incontinence, nocturnal enuresis N39.44 ; MR (mental retardation) F79 and Obsessive- compulsive disorder, unspecified F42.9 [place] [id number] [place] [address] Apr, [place] [id number] [place] [address] Apr, Altered mental status, unspecified altered mental status type R41.82 ; Obsessive-compulsive disorder, unspecified F42.9 ; Developmental non-verbal 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 ; BMI 40.0-44.9, adult Z68.41 and Recurrent UTI N39.0 [place] [id number] [place] [address] Mar, Altered mental status, unspecified altered mental status type R41.82 ; Tachycardia R00.0 ; Acute cystitis without hematuria N30.00 and Bacteremia R78.81 [place] [id number] [place] [address] Mar, [place] [id number] [place] [address] Mar, [place] [id number] [place] [address] Feb, [place] [id number] [place] [address] Feb, Dysuria R30.0 [place] [id number] [place] [address] Feb, Dysuria R30.0 ; Acute cystitis without hematuria N30.00 and Tachycardia R00.0 [facility] [place] [id number] [place] [address] Feb, Coarse tremors G25.2 and BMI 45.0-49.9, adult Z68.42 [place] [id number] [place] [address] Jan, [place] [id number] [place] [address] Jan, Major depressive disorder, recurrent episode, in partial remission F33.41 [place] [id number] [place] [address] Dec, Hyperglycemia R73.9 ; Hyperlipidemia, unspecified hyperlipidemia type E78.5 ; Body mass index (BMI) of 40.0-44.9 in adult Z68.41 and MR (mental retardation) F79 [place] [id number] [place] [address] November, Major depressive disorder, recurrent episode, in partial remission F33.41 ; Mental retardation F79 ; Obsessive compulsive disorder F42 and BMI 50.0-59.9, adult Z68.43 [place] [id number] [place] [address] Oct, [facility] [id number] [place] [address] Jul, Acute nasopharyngitis J00 and Vomiting, intractability of vomiting not specified, presence of nausea not specified, unspecified vomiting type R11.10 [place] [address] [address] Jul, BMI 45.0-49.9, adult Z68.42 ; Major depressive disorder, recurrent episode, in partial remission F33.41 ; Mental retardation F79 and Obsessive compulsive disorder F42 [place] [id number] [place] [address] Jul, High risk medication use Z79.899 [place] [id number] [place] [address] Jun, Morbid (severe) obesity due to excess calories E66.01 ; Body mass index (BMI) of 40.0-44.9 in adult Z68.41 ; Mental retardation F79 ; Elevated blood pressure reading R03.0 ; Screening for diabetes mellitus (DM) Z13.1 and Screening for lipid disorders Z13.220 [place] [id number] [place] [address] May, High risk medication use Z79.899 ; Major depressive disorder, recurrent episode, in partial remission F33.41 ; Mental retardation F79 and Obsessive compulsive disorder F42 [address] [address] May, [place] [id number] [place] [address] Apr, [facility] [place] [id number] [facility] [id number] [id number] Mar, [place] [id number] [place] [address] Jan, Major depression, recurrent F33.9 ; Mental retardation F79 and Obsessive compulsive disorder F42 [address] [place] [address] November, Major depression, recurrent F33.9 and Obsessive compulsive disorder F42 [facility] [address] [address] Sep, [facility] [id number] [place] [address] Jun, Obsessive compulsive disorder F42 ; Mental retardation F79 and Major depressive disorder, recurrent episode, in partial remission F33.41 [facility] [id number] [place] [address] Apr, [facility] [id number] [place] [address] Apr, Major depression, recurrent F33.9 ; Obsessive compulsive disorder F42 and Mental retardation F79 [facility] [address] [address] Jan, [facility] [id number] [place] [address] Jan, Major depression, recurrent F33.9 ; Obsessive compulsive disorder F42 and Mental retardation F79 [facility] [address] [place] [address] Dec, [facility] [address] [address] November, [facility] [address] [address] November, [facility] [id number] [address] Oct, [facility] [address] [address] Oct, Obsessive compulsive disorder F42 ; Major depression, recurrent F33.9 and Mental retardation F79 [facility] [address] [address] 16 Sep, 2015 [facility] [id number] [place] [address] 17 Aug, 2015 [facility] [address] [address] 15 Aug, 2015 [facility] [address] [place] [address] Aug, [facility] [address] [place] [address] Jul, [facility] [id number] [place] [address] Jul, [facility] [address] [place] [address] Jul, [facility] [id number] [place] [address] Jun, Obsessive compulsive disorder F42 ; Major depression, recurrent F33.9 and Mental retardation F79 [facility] [address] [place] [address] Jun, [facility] [address] [place] [address] Jun, [facility] [id number] [place] [address] May, [facility] [address] [address] Apr, [facility] [id number] [place] [address] 30 Mar, 2015 Generalized anxiety disorder 300.02 and Major depressive disorder, recurrent episode, mild 296.31 [facility] [address] [address] 14 Mar, 2015 [facility] [address] [address] Feb, [facility] [address] [address] Jan, [facility] [address] [facility] [id number] [place] [address] 10 Dec, 2014 Generalized anxiety disorder 300.02 and Depressive disorder, not elsewhere classified 311 [facility] [address] [id number] [place] [address] 14 Oct, 2014 [facility] [address] [facility] [id number] [place] [address] Oct, [facility] [address] [facility] [id number] [place] [address] Sep, [facility] [address] [facility] [id number] [place] [address] Sep, [facility] [address] [facility] [id number] [place] [address] Jun, [facility] [id number] [place] [address] Jun, [facility] [id number] [place] [address] May, [facility] [id number] [place] [address] May, [facility] [id number] [place] [address] May, [facility] [id number] [address] Apr, [facility] [id number] [place] [address] Apr, [facility] [id number] [place] [address] Feb, [facility] [place] [facility] [address] [facility] [id number] [place] [address] Jan, [facility] [place] [facility] [id number] [place] [address] Jan, [facility] [place] [facility] [address] [id number] [place] [address] Dec, [facility] [place] [facility] [address] [id number] [place] [address] Dec, [facility] [place] [facility] [address] [id number] [place] [address] Oct, [facility] [place] [facility] [address] [id number] [place] [address] Oct, [facility] [place] [facility] [address] [id number] [place] [address] Oct, [facility] [place] [facility] [address] [id number] [place] [address] Oct, [facility] [place] [facility] [address] [id number] [place] [address] Sep, [facility] [place] [facility] [address] [id number] [place] [address] Sep, [facility] [place] [facility] [address] [id number] [place] [address] Sep, [facility] [place] [facility] [address] [id number] [place] [address] Sep, [facility] [place] [facility] [address] [id number] [place] [address] Aug, [facility] [place] [facility] [address] [id number] [place] [address] Aug, [facility] [place] [facility] [address] [id number] [place] [address] Aug, [facility] [place] [facility] [address] [id number] [place] [address] Aug, [facility] [place] [facility] [address] [id number] [place] [address] Jul, [facility] [place] [facility] [address] [id number] [place] [address] Jul, [facility] [place] [facility] [address] [id number] [place] [address] Jul, [facility] [place] [facility] [address] [id number] [place] [address] Jul, [facility] [place] [facility] [address] [id number] [place] [address] Jul, [facility] [place] [facility] [address] [id number] [place] [address] Jul, [facility] [place] [facility] [address] [id number] [place] [address] Apr, [facility] [place] [facility] [address] [id number] [place] [address] 29 Apr, 2013 [facility] [place] [facility] [address] [id number] [place] [address] Apr, [facility] [place] [facility] [address] [id number] [place] [address] 24 Apr, 2013 [facility] [place] [facility] [address] [id number] [place] [address] Apr, [facility] [place] [facility] [address] [id number] [place] [address] Apr, [facility] [place] [facility] [address] [id number], [place] [address] 18 Apr, 2013 [facility] [place] [facility] [address] [id number], [place] [address] 18 Apr, 2013 [facility] [place] [facility] [address] [id number] [place] [address] 17 Apr, 2013 [facility] [place] [facility] [address] [id number], [place] [address] 17 Apr, 2013 [facility] [place] [facility] [address] [id number], [place] [address] 16 Apr, 2013 [facility] [place] [facility] [address] [id number] [place] [address] 16 Apr, 2013 [facility] [address] [id number] [place] [address] 16 Apr, 2013 [facility] [address] [id number] [place] [address] 16 Apr, 2013 [facility] [address] [id number] [place] [address] 18 Mar, 2013 [facility] [address] [id number] [place] [address] 17 Mar, 2013 [facility] [address] [id number] [place] [address] 16 Mar, 2013 [facility] [address] [id number] [place] [address] 13 Mar, 2013 [facility] [address] [id number] [place] [address] Feb, [facility] [address] [id number] [place] [address] Feb, [facility] [address] [id number] [place] [address] Jan, [facility] [address] [id number] [place] [address] Jan, [facility] [address] [id number] [place] [address] Jan, [facility] [address] [id number] [place] [address] Jan, [facility] [place] [facility] [address] [id number] [place] [address] Jan, [facility] [place] [facility] [address] [id number] [place] [address] Jan, [facility] [address] [id number] [place] [address] 05 Jan, 2013 [facility] [place] [facility] [address] [id number] [place] [address] Jan, [facility] [place] [facility] [address] [id number] [place] [address] Dec, [facility] [place] [facility] [address] [id number] [place] [address] Dec, [facility] [place] [facility] [address] [id number] [place] [address] Dec, [facility] [place] [facility] [address] [id number] [place] [address] Dec, [facility] [place] [facility] [address] [id number] [place] [address] Dec, [facility] [place] [facility] [address] [id number] [place] [address] Dec, [facility] [place] [facility] [address] [id number] [place] [address] Dec, [facility] [place] [facility] [address] [id number] [place] [address] Dec, [facility] [place] [facility] [address] [id number] [place] [address] Dec, [facility] [place] [facility] [address] [id number] [place] [address] November, [facility] [place] [facility] [address] [id number] [place] [address] 30 Oct, 2012 [facility] [place] [facility] [address] [id number] [place] [address] Oct, [facility] [place] [facility] [address] [id number] [place] [address] Oct, [facility] [place] [facility] [address] [id number] [place] [address] Oct, [facility] [place] [facility] [address] [id number] [address] Oct, [facility] [address] [id number] [place] [address] Oct, [facility] [address] [id number] [place] [address] Aug, [facility] [address] [id number] [place] [address] Aug, [facility] [address] [id number] [place] [address] Jul, [facility] [address] [id number] [place] [address] Jul, [facility] [address] [id number] [place] [address] Jul, [facility] [address] [id number] [place] [address] Jul, [facility] [address] [id number] [place] [address] Jul, [facility] [address] [id number] [place] [address] Jul, [facility] [address] [id number] [place] [address] Jul, [facility] [address] [id number] [place] [address] Jun, [facility] [address] [id number] [place] [address] Jun, [facility] [address] [id number] [place] [address] Jun, [facility] [address] [id number] [place] [address] Jun, [facility] [address] [id number] [place] [address] Jun, [facility] [place] [facility] [address] [id number] [place] [address] Apr, [facility] [place] [facility] [address] [id number] [place] [address] Apr, [facility] [place] [facility] [address] [id number] [place] [address] Apr, [facility] [place] [facility] [address] [id number] [place] [address] Mar, [facility] [place] [facility] [address] [id number] [place] [address] Feb, [facility] [place] [facility] [address] [id number] [place] [address] Jan, [facility] [place] [facility] [address] [id number] [place] [address] Jan, [facility] [place] [facility] [address] [id number] [place] [address] Dec, [facility] [place] [facility] [address] [id number] [place] [address] November, [facility] [place] [facility] [address] [id number] [place] [address] Oct, [facility] [place] [facility] [address] [id number] [place] [address] Sep, [facility] [place] [facility] [address] [id number] [place] [address] Sep, [facility] [place] [facility] [address] [id number] [place] [address] Aug, [facility] [place] [facility] [address] [id number] [place] [address] Aug, [facility] [place] [facility] [address] [id number] [place] [address] Aug, [facility] [place] [facility] [address] [id number] [address] Jul, [facility] [address] [facility] [id number] [address] Jul, [facility] [id number] [address] Jun, [facility] [address] [id number] [address] Jun, [facility] [id number] [address] May, [facility] [address] [id number] [address] Apr, [facility] [address] [id number] [address] Apr, IMMUNIZATIONS No Known Immunizations SOCIAL HISTORY Never Assessed REASON FOR VISIT EMR-[facility] PLAN OF CARE VITAL SIGNS MEDICATIONS No Known Medications RESULTS No Results PROCEDURES No Known procedures INSTRUCTIONS MEDICATIONS ADMINISTERED No Known Medications MEDICAL (GENERAL) HISTORY Type Description Date Medical History GERD Surgical History cholecystectomy 2013 Hospitalization History ED [place]- Chest Pain 08/26/2017 Hospitalization History Hospital, UTI/Septic 02/20/18 Hospitalization History viral infection 03/07/18
--- NOTE | 2018-12-13 12:44 | ED General ---
General Chief Complaint: General Problems/Pain Stated Complaint: LIGHT HEADED Source of Information: Patient Exam Limitations: No Limitations History of Present Illness Date Seen by Provider: December 13, 2018 Time Seen by Provider: 12:15 Initial Comments Here by EMS with report of syncopal episode or near syncopal episode while at [facility]. He apparently just had his labs drawn and was walking out of the car with his father. He got dizzy or weak and needed assistance. The father did not realize that he had stopped walking. He turned around and went back into the clinic and found the patient's around by 4 nurses sat down. Ultimately EMS was called and brought him here. No significant issues with blood pressure and no continuation of symptoms. 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 Has had increased stressors in his life as his mother had last year and lives with his father. Both he and his father had recent weight loss over the past 6-12 months and father was found to be diabetic. There was concern about diabetes in this patient. Timing/Duration: 1/2 Hour Severity: Mild Associated Systoms: No Nausea/Vomiting, No Shortness of Air; Syncope Allergies and Home Medications Allergies Coded Allergies: NKANo Known Allergies (Unverified Allergy, Mild, 10/20/18) Home Medications Cephalexin 500 Mg Capsule, 500 MG PO TID Prescribed by: ADALGISA MAHER on 08/01/181701 Clonazepam 0.5 Mg Tablet, 0.5 MG PO DAILY PRN for ANXIETY, (Reported) Doxycycline Hyclate 100 Mg Tablet, 100 MG PO BID, (Reported) Lurasidone HCl 60 Mg Tablet, 60 MG PO DAILY, (Reported) Montelukast Sodium 10 Mg Tablet, 10 MG PO HS, (Reported) Mupirocin 22 Gm Oint...g., 1 GM TP BID Apply to left buttock Prescribed by: ADALGISA MAHER on 08/01/181701 Omeprazole 20 Mg Capsule.dr, 20 MG PO DAILY, (Reported) Permethrin 60 Gm Cream..g., 60 GM TP ONCE Prescribed by: ADALGISA MAHER on 08/01/181701 Propranolol HCl 20 Mg Tablet, 20 MG PO BID, (Reported) Patient Home Medication List Home Medication List Reviewed: Yes Review of Systems Review of Systems Constitutional: see HPI; No chills, No fever Respiratory: no symptoms reported Cardiovascular: see HPI Unable to complete review of systems due to patient's underlying mental condition. 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 6.0oz. [id number]; 36.8 BMI Method:Stated General Appearance: No Apparent Distress, WD/WN HEENT: PERRL/EOMI, Pharynx Normal Neck: Non Tender, Supple Respiratory: Lungs Clear, Normal Breath Sounds Cardiovascular: Regular Rate, Rhythm, No Murmur Gastrointestinal: Non Tender, Soft Extremity: Normal Range of Motion, Non Tender Neurologic/Psychiatric: Alert, Oriented x3 Skin: Normal Color, Warm/Dry Progress/Results/Core Measures Suspected Sepsis SIRS Temperature: Pulse: Respiratory Rate: Laboratory Tests 12/13/18 12:30: White Blood Count 6.7 Blood Pressure / Mean: Laboratory Tests 12/13/18 12:30: Creatinine 0.97, Platelet Count 315, Total Bilirubin 0.8 Results/Orders Lab Results Laboratory Tests Test 12/13/18 12:30 12/13/18 12:40 12/13/18 13:56 Range/Units White Blood Count 6.7 4.3-11.0 10^3/uL Red Blood Count 5.74 4.35-5.85 10^6/uL Hemoglobin 15.7 13.3-17.7 G/DL Hematocrit 47 40-54 % Mean Corpuscular Volume 82 80-99 FL Mean Corpuscular Hemoglobin 27 25-34 PG Mean Corpuscular Hemoglobin Concent 34 32-36 G/DL Red Cell Distribution Width 12.9 10.0-14.5 % Platelet Count 315 130-400 10^3/uL Mean Platelet Volume 10.1 7.4-10.4 FL Neutrophils (%) (Auto) 79 H 42-75 % Lymphocytes (%) (Auto) 12 12-44 % Monocytes (%) (Auto) 8 0-12 % Eosinophils (%) (Auto) 1 0-10 % Basophils (%) (Auto) 1 0-10 % Neutrophils # (Auto) 5.3 1.8-7.8 X 10^3 Lymphocytes # (Auto) 0.8 L 1.0-4.0 X 10^3 Monocytes # (Auto) 0.5 0.0-1.0 X 10^3 Eosinophils # (Auto) 0.1 0.0-0.3 10^3/uL Basophils # (Auto) 0.1 0.0-0.1 10^3/uL D-Dimer 0.35 0.00-0.49 UG/ML Sodium Level 139 135-145 MMOL/L Potassium Level 4.4 3.6-5.0 MMOL/L Chloride Level 106 98-107 MMOL/L Carbon Dioxide Level 27 21-32 MMOL/L Anion Gap 6 5-14 MMOL/L Blood Urea Nitrogen 13 7-18 MG/DL Creatinine 0.97 0.60-1.30 MG/DL Estimat Glomerular Filtration Rate > 60 BUN/Creatinine Ratio 13 Glucose Level 100 70-105 MG/DL Calcium Level 9.8 8.5-10.1 MG/DL Corrected Calcium 8.5-10.1 MG/DL Magnesium Level 2.5 H 1.8-2.4 MG/DL Total Bilirubin 0.8 0.1-1.0 MG/DL Aspartate Amino Transf (AST/SGOT) 21 5-34 U/L Alanine Aminotransferase (ALT/SGPT) 38 0-55 U/L Alkaline Phosphatase 57 40-136 U/L Troponin I < 0.028 <0.028 NG/ML Total Protein 7.5 6.4-8.2 GM/DL Albumin 4.6 H 3.2-4.5 GM/DL TSH [place] Testing 1.43 0.35-4.94 UIU/ML Glucometer 104 70-110 MG/DL Urine Color YELLOW Urine Clarity CLEAR Urine pH 7 5-9 Urine Specific Raymond 1.005 L 1.016-1.022 Urine Protein NEGATIVE NEGATIVE Urine Glucose (UA) NEGATIVE NEGATIVE Urine Ketones 1+ H NEGATIVE Urine Nitrite NEGATIVE NEGATIVE Urine Bilirubin NEGATIVE NEGATIVE Urine Urobilinogen NORMAL NORMAL MG/DL Urine Leukocyte Esterase NEGATIVE NEGATIVE Urine RBC (Auto) NEGATIVE NEGATIVE Urine RBC NONE /HPF Urine WBC RARE /HPF Urine Squamous Epithelial Cells 0-2 /HPF Urine Crystals NONE /LPF Urine Bacteria NEGATIVE /HPF Urine Casts NONE /LPF Urine Mucus NEGATIVE /LPF Urine Culture Indicated NO My Orders Orders - SARAH ABDI MD Ed Iv/Invasive Line Start (12/13/18 12:20) Ns Iv 1000 Ml (Sodium Chloride 0.9%) (12/13/18 12:20) Cbc With Automated Diff (12/13/18 12:20) Comprehensive Metabolic Panel (12/13/18 12:20) Fibrin Degradation Products (12/13/18 12:20) Magnesium (12/13/18 12:20) Thyroid Analyzer (12/13/18 12:20) Troponin I (12/13/18 12:20) Ua Culture If Indicated (12/13/18 12:20) Accucheck Stat ONCE (12/13/18 12:20) Ekg Tracing (12/13/18 12:20) Chest 1 View, Ap/Pa Only (12/13/18 12:20) Medications Given in ED Current Medications Medications Dose Ordered Sig/Yudi Route Start Time Stop Time Status Last Admin Dose Admin Sodium Chloride 1,000 ml @ 0 mls/hr Q0M ONCE IV 12/13/18 12:20 12/13/18 12:24 DC 12/13/18 12:41 1,000 MLS/HR Vital Signs/I&O 12/13/18 12:06 Pulse 83 Resp 17 B/P (MAP) 147/95 (112) Pulse Ox 97 O2 Delivery Room Air Capillary Refill : Point of Care Testing Finger Stick Blood Glucose: 104 Progress Note : Progress Note Seen and evaluated. IV, labs, UA and chest x-ray ordered. EKG ordered. Patient is in no acute distress and seems to be at baseline currently. Monitor patient. 1350: Lab evaluation as well as chest x-ray and EKG looked fine and we're pending UA. He does have history of UTI with sepsis so we want to get that checked. This was discussed with father who agrees. Monitor patient. 1451: No acute findings. Discharged home with return precautions. Other verbalize understanding instructions and agreement with plan. I will send a copy of the chart to Dr. Kulkarni. ECG Initial ECG Impression Date: December 13, 2018 Initial ECG Impression Time: 12:08 Initial ECG Rate: 73 Initial ECG Rhythm: Normal Sinus Initial ECG Impression: Normal Comment Sinus rhythm with normal axis. No evidence of ST elevation [place]. Change from previous of 10/20/18 in that previous was sinus tachycardia. Interpreted by me. Diagnostic Imaging Diagonstic Imaging: Xray Plain Films/CT/US/NM/MRI: chest Comments [facility] SYSTEMContract [facility] [place], [place] NAME: [facility] EVANS [facility] REC#: [id number] PT STATUS: REG ER : 1980 PHYSICIAN: SARAH ABDI MD ADMIT DATE: 12/13/18/ER Draft Date of Exam:12/13/18 CHEST 1 VIEW, AP/PA ONLY PATIENT HISTORY: Syncope. TECHNIQUE: Single frontal view of the chest COMPARISON: 10/20/2018 FINDINGS: The lung volumes are normal. No focal consolidation is seen. No large pleural effusion or pneumothorax is seen. The cardiomediastinal silhouette is normal in size and contour. No acute osseous abnormality is seen. IMPRESSION: No acute pulmonary abnormality seen. Dictated on workstation # [id number] Dict: 12/13/18 1303 Trans: 12/13/18 1308 KB [id number] Interpreted by: RODRIGUEZ RAHMAN MD Electronically signed by: Departure Impression Primary Impression: Near syncope Disposition: 01 HOME, SELF-CARE Condition: Improved Departure-Patient Inst. Decision time for Depature: 14:53 Referrals: JOAO KULKARNI MD (PCP/Family) Primary Care Physician Patient Instructions: Near Fainting (DC) Add. Discharge Instructions: All discharge instructions reviewed with patient and/or family. Voiced understanding. Continue normal diet and encourage adequate amount of fluids. Follow-up with your doctor in a few days for recheck. Return for worse pain, fever, vomiting, weakness, breathing problems or other concerns as needed. Continue home medications as previously prescribed. Copy Copies To 1: JOAO KULKARNI MD, TIMOTHY D MD December 13, 2018 12:44
[2018-12-13 12:58] LABS: ALANINE AMINOTRANSFERASE 38 U/L (0-55); ALBUMIN 4.6 GM/DL (3.2-4.5); ALKALINE PHOSPHATASE 57 U/L (40-136); BILIRUBIN,TOTAL 0.8 MG/DL (0.1-1.0); BUN/CREATININE RATIO 13; CALCIUM 9.8 MG/DL (8.5-10.1); CARBON DIOXIDE 27 MMOL/L (21-32); CHLORIDE 106 MMOL/L (98-107); CREATININE SERUM 0.97 MG/DL (0.60-1.30); GFR ESTIMATED > 60; GLUCOSE 100 MG/DL (70-105); MAGNESIUM 2.5 MG/DL (1.8-2.4); POTASSIUM 4.4 MMOL/L (3.6-5.0); SODIUM 139 MMOL/L (135-145); TOTAL PROTEIN 7.5 GM/DL (6.4-8.2)
--- NOTE | 2018-12-13 13:08 | Diagnostic Imaging Report ---
PATIENT HISTORY: Syncope. TECHNIQUE: Single frontal view of the chest COMPARISON: 10/20/2018 FINDINGS: The lung volumes are normal. No focal consolidation is seen. No large pleural effusion or pneumothorax is seen. The cardiomediastinal silhouette is normal in size and contour. No acute osseous abnormality is seen. IMPRESSION: No acute pulmonary abnormality seen. Dictated by: Dictated on workstation # [id number]
[2018-12-13 13:18] LABS: TSH (THYROID ANALYZER) 1.43 UIU/ML (0.35-4.94)
[2018-12-13 14:00] LABS: BILIRUBIN,URINE NEGATIVE (NEGATIVE); CLARITY,URINE CLEAR; COLOR,URINE YELLOW; GLUCOSE, URINE (UA) NEGATIVE (NEGATIVE); KETONES,URINE 1+ (NEGATIVE); LEUKOCYTE ESTERASE ,URINE NEGATIVE (NEGATIVE); NITRITE,URINE NEGATIVE (NEGATIVE); PH,URINE 7 (5-9); PROTEIN,URINE NEGATIVE (NEGATIVE); UROBILINOGEN,URINE NORMAL (NORMAL)
[2018-12-13 14:07] LABS: BACTERIA,URINE NEGATIVE /HPF; SQUAMOUS EPITHELIAL CELL,UR 0-2 /HPF; WBC,URINE RARE /HPF
[2018-12-13 15:16] VITALS: BP 138/96
== END 2018-12-13 15:16 | disposition home or self-care (01) ==
LOC: EDUNIT# 12:06 → ER 12:08
DX: R55 Syncope and collapse (principal); J45.909 Unspecified asthma, uncomplicated; K21.9 Gastro-esophageal reflux disease without esophagitis; E66.9 Obesity, unspecified; F41.9 Anxiety disorder, unspecified; F32.9 Major depressive disorder, single episode, unspecified; Z82.49 Family history of ischemic heart disease and other diseases of the circulatory system; F42.9 Obsessive-compulsive disorder, unspecified; Z87.440 Personal history of urinary (tract) infections
CPT/HCPCS: 36415; 71045; 80053; 81000; 82962; 83735; 84443; 84484; 85025; 85379; 93005; 96360